=== PATIENT | male | born 1965 | race Two or more races ===

== ENCOUNTER 2020-07-21 01:23 | Inpatient (IN) | payer MEDICAID ==
[~2020-07-21] VITALS: Ht 167.6 cm; Wt 78.0 kg
[2020-07-21] VITALS (7 sets, daily range): BP systolic 121–133; BP diastolic 72–86
--- NOTE | 2020-07-21 01:38 | Emergency Room Report ---
History of Present Illness General Chief Complaint: Dyspnea/Respdistress Source: Patient, EMS Present Illness HPI This is a 54-year-old male with a history of diabetes. He presents with chief plaint of rest or distress. Symptoms been ongoing for a week. He has cough. Nonproductive nature. Also with slight nausea and vomiting. No diarrhea. Also has fever. Symptoms worsen with inspiration and exertion. He called 911. Per EMS, room air oxygenation was 89%. They placed him on nonrebreather and brought him here. Allergies: Coded Allergies: No Known Allergies (Unverified , 07/21/20) COVID-19 Screening Contact w/high risk pt: No Experienced COVID-19 symptoms?: Yes COVID-19 Testing performed STRIP ROLLER: No Patient History Past Medical History: see triage record, old chart reviewed, DM Past Surgical History: none Pertinent Family History: none Social History: Denies: smoking Immunizations: other Reviewed Nursing Documentation: PMH: Agreed; PSxH: Agreed Nursing Documentation-PMH Hx Diabetes: Yes Review of Systems Constitutional: Reports: chills, fever, weakness Eye: Denies: eye pain, blurred vision ENT: Denies: ear pain, nose congestion, throat swelling Respiratory: Reports: cough, shortness of breath Cardiovascular: Denies: chest pain, palpitations Gastrointestinal: Reports: nausea, vomiting; Denies: abdominal pain, diarrhea Musculoskeletal: Denies: back pain, joint pain Skin: Denies: rash Neurological: Denies: headache, numbness Endocrine: Denies: increased thirst, increased urine Hematologic/Lymphatic: Denies: easy bruising All Other Systems: negative except mentioned in HPI Physical Exam Vital Signs Date Time Temp Pulse Resp B/P (MAP) Pulse Ox O2 Delivery O2 Flow Rate FiO2 07/21/20 01:15 99.0 98 26 157/98 (117) 98 Room Air Vitals with high blood pressure. Oxygenation is 98% on nonrebreather. Sp02 EP Interpretation: reviewed, abnormal General Appearance: well appearing, alert, mild distress Head: normocephalic, atraumatic Eyes: bilateral eye PERRL, bilateral eye EOMI ENT: hearing grossly normal, normal pharynx Neck: full range of motion, supple, no meningismus Respiratory: chest non-tender, lungs clear, normal breath sounds Cardiovascular #1: regular rate, rhythm, no murmur Gastrointestinal: normal bowel sounds, non tender, no mass, no organomegaly, no bruit, non-distended Musculoskeletal: back normal, normal range of motion, gait/station normal Psychiatric: mood/affect normal Procedures Critical Care Time Critical Care Time Critical care is mandated in this patient who presented with acute respiratory failure with hypoxia secondary to Covid pneumonia. Patient require my urgent intervention to attenuate the risks of respiratory collapse which may lead to cardiovascular collapse and . Critical care time is 35 minutes excluding any reportable procedure. Critical care time included evaluation, multiple reevaluation, looking at old charts, interpreting laboratory and diagnostic data, discussing case with patient and family and consultants, and charting. Medical Decision Making Diagnostic Impression: Primary Impression: Pneumonia due to COVID-19 virus Additional Impressions: Acute respiratory failure with hypoxia Hyperglycemia due to type 2 diabetes mellitus ER Course Patient presents with respiratory distress secondary to Covid pneumonia. He was hypoxic on room air. On 4 L he is 95 to 97%. He is feeling better after oxygen and breathing treatment. Antibiotics given here. Steroid given here. Will admit for further work-up and monitoring. I contacted Dr. Miller for admission. EKG Diagnostic Results Troponin ordered: Yes Rate: normal Rhythm: NSR ST Segments: no acute changes Rhythm Strip Diag. Results EP Interpretation: yes Rate: 96 Rhythm: NSR, no PVC's, no ectopy Chest X-Ray Diagnostic Results Chest X-Ray Diagnostic Results : Chest X-Ray Ordered: Yes # of Views/Limited/Complete: 1 View Indication: Shortness of Breath EP Interpretation: Yes Interpretation: no effusion, no pneumothorax, other - Bilateral patchy airspace opacities Impression: Other - b/l infiltrates Electronically Signed by: Grant Hackett MD Last Vital Signs Date Time Temp Pulse Resp B/P (MAP) Pulse Ox O2 Delivery O2 Flow Rate FiO2 07/21/20 01:15 99.0 98 26 157/98 (117) 98 Room Air Status: improved Disposition: ADMITTED INPATIENT Condition: Serious Referrals: NOT CHOSEN ZORAIDA/,REFERRING (PCP) Grant Hackett MD Jul 21, 2020 01:38
--- NOTE | 2020-07-21 01:40 | NUR ---
ED Nurse Note: Pt came in by ambulance RA 94 from home becuase of sob x 2 days. pt stated; he been coughing and it was hard for him to breath. He was on 15L non-rebreather mask satting 100%. we put him on 4L NC and he is satting 96-97%. pt is A&Ox4, verbal and awake. Monitor on, pt is tecypenic 33. pt is on hospital gown.
[2020-07-21] MEDS ORDERED: Azithromycin 500 MG in NS 275 ML IVPB ONE (01:45)
[2020-07-21] MEDS ORDERED: Enoxaparin 100mg Inj SUBQ ONE (01:45)
[2020-07-21] MEDS ORDERED: cefTRIAXone 1 GM in NS 55 ML IV ONE (01:45)
[2020-07-21] MEDS ORDERED: dexAMETHasone 10mg/ml Inj IV ONE (01:45)
[2020-07-21 01:48] LABS: APPEARANCE,URINE CLEAR; BILIRUBIN, URINE NEGATIVE (NEGATIVE); COLOR,URINE PALE YELLOW; GLUCOSE, URINE (UA) 4+ (NEGATIVE); KETONES,URINE 3+ (NEGATIVE); LEUKOCYTE ESTERASE ,URINE NEGATIVE (NEGATIVE); NITRITE,URINE NEGATIVE (NEGATIVE); PH,URINE 6 (4.5-8.0); PROTEIN,URINE 4+ (NEGATIVE); UROBILINOGEN,URINE NORMAL MG/DL (0.0-1.0)
[2020-07-21 01:49] LABS: HEMATOCRIT 43.4 % (42.0-52.0); MEAN CORPUSCULAR VOLUME 83 FL (80-99); PLATELET COUNT 177 K/UL (150-450); RED BLOOD COUNT 5.25 M/UL (4.70-6.10); RED CELL DISTRIBUTION WIDTH 13.1 % (11.6-14.8); WHITE BLOOD COUNT 5.9 K/UL (4.8-10.8)
[2020-07-21] MEDS ORDERED: Azithromycin 500mg Inj ONE (01:49)
--- NOTE | 2020-07-21 01:55 | NUR ---
ED Nurse Note: Iv intiated; blood,urine , and covid 19 swab sent to the lab.
[2020-07-21 02:03] LABS: ANION GAP 10 mmol/L (5-15); BLOOD UREA NITROGEN 12 mg/dL (7-18); CALCIUM 8.2 MG/DL (8.5-10.1); CARBON DIOXIDE 27 MMOL/L (21-32); CHLORIDE 95 MMOL/L (98-107); POTASSIUM 4.3 MMOL/L (3.5-5.1); SODIUM 132 MMOL/L (136-145)
--- NOTE | 2020-07-21 02:08 | Diagnostic Imaging Report ---
EXAM: XR Chest, 1 View CLINICAL HISTORY: SOB TECHNIQUE: Frontal view of the chest. COMPARISON: No relevant prior studies available. FINDINGS: Lungs: Patchy airspace opacities throughout both lungs concerning for an infectious process. Pleural space: Unremarkable. Heart: Unremarkable. Mediastinum: Unremarkable. Bones/joints: Unremarkable. IMPRESSION: Patchy airspace opacities throughout both lungs concerning for an infectious process.
[2020-07-21] MEDS ORDERED: Albuterol ud Inhalation HHN ONE (02:15)
[2020-07-21] MEDS ORDERED: Insulin Human Regular 100units/ml 3ml IV ONE (02:15)
--- NOTE | 2020-07-21 02:30 | NUR ---
ED Nurse Note: pt is stable and sleeping. His o2 is 97% with 4L nc.
[2020-07-21 02:32] LABS: ALANINE AMINOTRANSFERASE 25 U/L (12-78); ALBUMIN 2.8 G/DL (3.4-5.0); ALBUMIN/GLOBULIN RATIO 0.5 (1.0-2.7); ALKALINE PHOSPHATASE 103 U/L (46-116); ASPARTATE AMINO TRANSFERASE 32 U/L (15-37); BILIRUBIN,TOTAL 0.4 MG/DL (0.2-1.0); CKMB < 0.5 NG/ML (0.0-3.6); CREATINE KINASE 347 U/L (26-308); FERRITIN 556 NG/ML (8-388); LACTATE DEHYDROGENASE 400 U/L (81-234)
--- NOTE | 2020-07-21 04:30 | NUR ---
TRANSFER TO FLOOR: Patient transferred to [facility] as ordered, per stephan. Report given to CHARMAINE Braga. ALl belonging sent with pt. RN took the pt to the floor in stable condition.
--- NOTE | 2020-07-21 04:40 | NUR ---
NURSE NOTES: Dr. Miller was called for admission order as indicated and a voice mail was left on his phone. Will continue to monitor
--- NOTE | 2020-07-21 06:19 | NUR ---
NURSE NOTES: The patient was received from [facility]. The patient is alert and oriented x4, he is on oxygen @ 2 liters NC welll tolerated. The patient is able to turn and re-position himself and has a steady gait. On skin assessment, the skin is warm and soft with capillary refill < 3 secs. He has a Left fore arm 18g that is patent and asymptomatic. He was noted coughing most of the time. The bed in low level and call light within easy reach.
--- NOTE | 2020-07-21 06:50 | NUR ---
NURSE NOTES: received admission orders from Dr. Miller. All orders executed as indicated
--- NOTE | 2020-07-21 07:20 | NUR ---
NURSE HAND-OFF: Important Events on Shift:Alert and stable Patient Status: Diet: Pending Orders: Pending Results/Labs: Pending MD notification: Latest Vital Signs: Temperature 98.0 , Pulse 89 , B/P 125 /69 , Respiratory Rate 22 , O2 SAT 98 , Nasal Cannula, O2 Flow Rate 2.0 . Vital Sign Comment: Latest Van Fall Score: 35 Fall Risk: Medium Risk Safety Measures: Call light Within Reach, Bed Alarm Zone 1, Side Rails Side Rails x1, Bed position Low and Locked. Fall Precautions: Yellow Socks Yellow Gown Door Sign Report given to .
--- NOTE | 2020-07-21 07:43 | NUR ---
NURSE NOTES: Received report from CHARMAINE Braga. Patient observed to be awake, alert, and oriented. Seen lying in bed with Hob elevated, currently on 4L NC, no s/sx of SOB/Distress, no c/o any pain or discomfort. Patient on contact and droplet iso for COVID (+). Patient with IV site lovated on LFA 18 asymptomatic, inplace and intact. Bed placed on lowest and locked, call light placed within reach and will continue to monitor for any changes in patients condition.
--- NOTE | 2020-07-21 09:58 | NUR ---
CASE MANAGEMENT:REVIEW BIBA FROM HOME CC; SOB SI: COVID PNA 99.5 98 26 157/98 100% ON 15L NRB GLUCOSE+384 IS: IV AZITHROMYCIN IV DECADRON 1L NS BOLUS IV ROCEPHIN LOVENOX SQ BLOOD CX : TO MED/SURG 4 DCP: FROM HOME
[2020-07-21] MEDS ORDERED: NovoLOG Insulin Flexpen SUBQ SCH (11:30)
--- NOTE | 2020-07-21 13:37 | NUR ---
NURSE NOTES: Received orders from Dr. Shoemaker for patient in regards to hyperglycemic episode. Orders repeated back, confirmed and carried out. Patient in stable condition.
--- NOTE | 2020-07-21 16:30 | NUR ---
NURSE NOTES: Notified Dr. Shoemaker of retained high blood sugar, given new order. Will continue to monitor patient's blood sugar level. Patient currently asymptomatic.
[2020-07-21] MEDS: NovoLOG Insulin Flexpen SUBQ SCH ×3 (16:58→21:48)
[2020-07-21] MEDS ORDERED: Levemir Flexpen SUBQ SCH (17:00)
--- NOTE | 2020-07-21 18:45 | NUR ---
NURSE NOTES: Patient's family brought over clothing, checked patient's binder no belongings sheet was found. Went over all patient's belongings, patient has 1052.00 in castillo in wallet, offered to place money in safe patient stated he is more comfortable if it is with him. Respected patient's wishes, patient signed belongings form.
--- NOTE | 2020-07-21 18:49 | NUR ---
NURSE NOTES: Rechecked patient's blood sugar lvl currently at 478 and is trending down. Patient asymptomatic, and will continue to monitor for any changes in condition.
[2020-07-21] MEDS: guaiFENesin w/Codeine 5ml Liq ud ORAL PRN (19:24)
--- NOTE | 2020-07-21 19:25 | NUR ---
NURSE HAND-OFF: Important Events on Shift:hyperglycemia,covid monitoringh Patient Status: bs trending down Diet: reg Pending Orders: n/a Pending Results/Labs:n/a Pending MD notification:n/a Latest Vital Signs: Temperature 98.2 , Pulse 72 , B/P 133 /82 , Respiratory Rate 20 , O2 SAT 95 , Nasal Cannula, O2 Flow Rate 4.0 . Vital Sign Comment: stable Latest Van Fall Score: 35 Fall Risk: Medium Risk Safety Measures: Call light Within Reach, Bed Alarm Zone 1, Side Rails Side Rails x2, Bed position Low and Locked. Fall Precautions: Yellow Socks Yellow Gown Door Sign Report given to CHARMAINE Braga.
--- NOTE | 2020-07-21 19:27 | NUR ---
NURSE NOTES: The patient is alert and oriented x4 and is on continuos oxygen via NC @ 4 liters well tolerated. He is able to ambulate to the bath room with a steady gait. Patient was noted with coughing episodes and was given his PRN cough syrup as indicated. Patient has a LFA 18g that is patent and asymptomatic. The bed in low level, call light within easy reach. Will continue to monitor as indicated
[2020-07-21] MEDS: Levemir Flexpen SUBQ SCH (21:46)
--- NOTE | 2020-07-21 23:00 | History and Physical Report ---
DATE OF ADMISSION: 07/21/2020 HISTORY OF PRESENT ILLNESS: The patient is admitted for COVID-positive pneumonia. The patient came in with history of diabetes with a chief complaint of shortness of breath. The patient also has some cough for about a couple of days, nonproductive. Denied vomiting. Denied diarrhea. Denies abdominal pain or shortness of breath. The patient is also a diabetic and is admitted for COVID-positive pneumonia and hypoxia initially as well as elevated sugar. PAST MEDICAL HISTORY: NIDDM and GERD. PAST SURGICAL HISTORY: None. ALLERGIES: No known allergies. MEDICATIONS: He does not know the medications that he takes. FAMILY HISTORY: Noncontributory. REVIEW OF SYSTEMS: HEENT: Denies headache. RESPIRATORY: Reports shortness of breath and cough. CARDIOVASCULAR: Denies chest pain, orthopnea. GASTROINTESTINAL: Denies nausea, vomiting, or diarrhea. EXTREMITIES: Denies pain. CENTRAL NERVOUS SYSTEM: Denies change in speech pattern. PHYSICAL EXAMINATION: VITAL SIGNS: Temperature is 98, pulse is 89, blood pressure 124/69. HEENT: PERRLA. NECK: Supple. No lymphadenopathy. CHEST: Clear to auscultation CARDIOVASCULAR: Regular rate and rhythm. No murmurs or extra sounds. GASTROINTESTINAL: Soft, nontender, nondistended. No organomegaly. EXTREMITIES: No edema. Moves all four extremities. Reflexes on both sides. LABORATORY DATA: WBC of 5.9, hemoglobin 16, platelets 177. Sodium 133, potassium 4.3, BUN of 12, creatinine of 1. Chest x-ray showed bilateral infiltrates. Glucose was 384. ASSESSMENT AND PLAN: COVID-positive pneumonia, hypoxia, elevated sugar, hyperglycemia. I have consulted Dr. Pradeep Monique, Dr. Christian Caraballo, and Dr. Sandor Briceño to help with the management of the hypoxia, pneumonia, COVID-positive pneumonia as well as for elevated sugar. Antibiotics per Dr. Christian Caraballo. Milagro Miller M.D. DR: FRANCISCO J JOB#: [id number] CC:
[2020-07-22] VITALS: BP 128/70
[2020-07-22 04:00] VITALS: BP 138/73
[2020-07-22 05:58] LABS: ANION GAP 9 mmol/L (5-15); BLOOD UREA NITROGEN 14 mg/dL (7-18); CALCIUM 8.4 MG/DL (8.5-10.1); CARBON DIOXIDE 26 MMOL/L (21-32); CHLORIDE 100 MMOL/L (98-107); CREATININE 0.8 MG/DL (0.55-1.30); POTASSIUM 3.9 MMOL/L (3.5-5.1); SODIUM 135 MMOL/L (136-145)
[2020-07-22] MEDS: NovoLOG Insulin Flexpen SUBQ SCH ×7 (06:32→20:21)
--- NOTE | 2020-07-22 07:10 | NUR ---
NURSE HAND-OFF: Important Events on Shift:coughing episodes, continous oxygen @ 2 liters NC Patient Status: Diet: Pending Orders: Pending Results/Labs: Pending MD notification: Latest Vital Signs: Temperature 97.9 , Pulse 71 , B/P 138 /73 , Respiratory Rate 20 , O2 SAT 92 , Nasal Cannula, O2 Flow Rate 4.0 . Vital Sign Comment: Latest Van Fall Score: 35 Fall Risk: Medium Risk Safety Measures: Call light Within Reach, Bed Alarm Zone 1, Side Rails Side Rails x2, Bed position Low and Locked. Fall Precautions: Yellow Socks Yellow Gown Door Sign Report given to .
--- NOTE | 2020-07-22 07:15 | NUR ---
NURSE NOTES: Received report from CHARMAINE Braga. Patient seen lying in bed, awake,alert and oriented x4. Currently on droplet and contact isolation for (+) COVID. Patient on 4L NC no s/sx of SOB/Distress, no c/o any pain or discomfort. IV site located on LFA 18 asymptomatic, inplace and intact. Bed placed on lowest and locked,call light placed within reach and will continue to monitor for any changes in patient's condition.
[2020-07-22 08:00] VITALS: BP 136/72
[2020-07-22] MEDS: Enoxaparin 40mg Inj SUBQ SCH (08:13)
[2020-07-22] MEDS: Levemir Flexpen SUBQ SCH ×2 (08:16→20:20)
--- NOTE | 2020-07-22 09:10 | NUR ---
NURSE NOTES: Patient reported feeling SOB, 02 at 90-91% on 5LNC notified Dr. Monique and received orders to place venturi mask on 50%. Notified RT and will continue to monitor for any changes in patients condition.
[2020-07-22 12:00] VITALS: BP 145/79
[2020-07-22] MEDS: guaiFENesin w/Codeine 5ml Liq ud ORAL PRN (12:57)
--- NOTE | 2020-07-22 13:42 | NUR ---
CASE MANAGEMENT:REVIEW 07/22/20 SI: COVID PNA 97.9 71 21 145/79 98% ON VENTURI MASK GLUCOSE+195 IS: IV DECADRON Q24 LOVENOX SQ QD LEVEMIR SQ Q12 SS INSULIN AC+HS : MED/SURG STATUS 4 [facility]
[2020-07-22] MEDS: LORazepam 1mg tab ORAL PRN (14:47)
[2020-07-22 16:00] VITALS: BP 133/76
--- NOTE | 2020-07-22 16:59 | Pulmonology Progress Note ---
Subjective Interval Events: None new Constitutional: Reports: no symptoms HEENT: Repors: no symptoms Respiratory: Reports: no symptoms Cardiovascular: Reports: no symptoms Gastrointestinal/Abdominal: Reports: no symptoms Allergies: Coded Allergies: No Known Allergies (Unverified , 07/21/20) Objective Last 24 Hour Vital Signs Date Time Temp Pulse Resp B/P (MAP) Pulse Ox O2 Delivery O2 Flow Rate FiO2 07/22/20 16:00 97.9 79 20 133/76 (95) 99 07/22/20 15:17 78 20 138/80 98 07/22/20 14:47 71 21 145/79 98 07/22/20 12:00 97.9 71 21 145/79 (101) 98 07/22/20 09:00 Venturi Mask 07/22/20 08:00 97.9 78 19 136/72 (93) 93 07/22/20 04:00 97.9 71 20 138/73 (94) 92 07/22/20 00:00 98.0 74 18 128/70 (89) 94 07/21/20 21:00 Nasal Cannula 4.0 07/21/20 20:00 98.4 74 18 126/74 (91) 97 Intake and Output 07/21/20 07/22/20 19:00 07:00 Intake Total 1000 ml 1200 ml Balance 1000 ml 1200 ml Intake Oral 1000 ml 1200 ml # Voids 4 4 # Bowel Movements 1 General Appearance: no acute distress HEENT: normocephalic Respiratory: chest wall non-tender Cardiovascular: normal peripheral pulses Abdomen: normal bowel sounds Microbiology Date/Time Source Procedure Growth Status 07/21/20 01:20 Nasopharynx SARS-CoV-2 RdRp Gene Assay - Final Complete Laboratory Tests 07/22/20 04:00: Sodium Level 135L, Potassium Level 3.9, Chloride Level 100, Carbon Dioxide Level 26, Anion Gap 9, Blood Urea Nitrogen 14, Creatinine 0.8, Estimat Glomerular Filtration Rate > 60, Glucose Level 195#H, Hemoglobin A1c 10.2H, Calcium Level 8 .4L 07/22/20 07:36: POC Whole Blood Glucose 155H 07/22/20 08:11: POC Whole Blood Glucose [Pending] 07/22/20 09:37: POC Whole Blood Glucose 215H 07/22/20 11:09: POC Whole Blood Glucose 197H 07/22/20 16:20: POC Whole Blood Glucose 200H Current Medications Medications (Trade) Dose Ordered Sig/Dalia Route PRN Reason Start Time Stop Time Status Last Admin Dose Admin Acetaminophen (Tylenol) 500 mg Q6H PRN ORAL Mild Pain (Pain Scale 1-3) 07/21/20 08:15 08/20/20 08:14 Dexamethasone Sodium Phosphate (Decadron 4mg/ml vial) 6 mg DAILY IVP 07/22/20 09:00 07/30/20 12:00 07/22/20 08:12 Dextrose (Dextrose 50%) 25 ml Q30M PRN IV Hypoglycemia 07/21/20 13:30 10/19/20 13:29 Dextrose (Dextrose 50%) 50 ml Q30M PRN IV Hypoglycemia 07/21/20 13:30 10/19/20 13:29 Enoxaparin Sodium (Lovenox) 40 mg DAILY SUBQ 07/22/20 09:00 10/20/20 08:59 07/22/20 08:13 Insulin Aspart (NovoLOG) BEFORE MEALS AND HS SUBQ 07/21/20 16:30 10/19/20 16:29 07/22/20 12:25 Insulin Aspart (NovoLOG) 10 units TIWM SUBQ 07/21/20 17:00 10/19/20 16:59 07/22/20 12:24 Insulin Detemir (Levemir) 20 units EVERY 12 HOURS SUBQ 07/21/20 21:00 10/19/20 20:59 07/22/20 08:16 Lorazepam (Ativan) 1 mg Q6H PRN ORAL For Anxiety 07/22/20 14:30 07/29/20 14:29 07/22/20 14:47 Mirtazapine (Remeron) 15 mg BEDTIME ORAL 07/22/20 21:00 10/20/20 20:59 Assessment/Plan Assessment/Plan ASSESSMENT COVID-19pneumonia, hypoxia, DM PLAN Steroids/Decadron Remdesiver defer to ID Lovenox Oxygen therapy Pradeep Monique MD Jul 22, 2020 16:59
--- NOTE | 2020-07-22 19:04 | CDS Physician Query ---
Clarification is required for compliance, coding accuracy, and to reflect severity of illness for this patient Dear Dr. Milagro Miller M.D. Date: 07/22/2020 CDIS Name: Dav Alvarado 54 YOM admitted for COVID-positive pneumonia. The patient came in with history of diabetes with a chief complaint of shortness of breath. [ H&P Milagro iMller M.D. 07/21/20] ASSESSMENT AND PLAN: COVID-positive pneumonia, hypoxia, elevated sugar,hyperglycemia. LABORATORY DATA: WBC of 5.9, hemoglobin 16, platelets 177. Sodium 133, potassium 4.3, BUN of 12, creatinine of 1.2 , Glucose was 384. Albumin 2.8, Calcium 8.2 BMI 27.8 Please select the most appropriate option: [] Protein/Calorie Malnutrition [] Mild [] Moderate [] Severe [] Hypoalbuminemia [] Cachexia [] Underweight [] Intestinal malabsorption [] Other [] Unable to determine [] Not Applicable Present on Admission: [] Yes [] No [] Clinically Undetermined Physician signature Date Please also document in your Progress Notes and/or Discharge Summary and indicate if the condition was present on admission. MTDD
--- NOTE | 2020-07-22 19:15 | NUR ---
NURSE HAND-OFF: Important Events on Shift:LOW 02, ANXIETY, COVID MONITORING Patient Status: Stable Diet: ccho Pending Orders: n.a Pending Results/Labs:n.a Pending MD notification:n.a Latest Vital Signs: Temperature 97.9 , Pulse 79 , B/P 133 /76 , Respiratory Rate 20 , O2 SAT 99 , Venturi Mask, O2 Flow Rate 4.0 . Vital Sign Comment: stable Latest Van Fall Score: 35 Fall Risk: Medium Risk Safety Measures: Call light Within Reach, Bed Alarm Zone 1, Side Rails Side Rails x2, Bed position Low and Locked. Fall Precautions: Yellow Socks Yellow Gown Door Sign Report given to CHARMAINE Ng.
--- NOTE | 2020-07-22 19:15 | CDS Physician Query ---
Clarification is required for compliance, coding accuracy, and to reflect severity of illness for this patient. Dear Dr. Milagro Miller M.D. Date: 07/22/2020 CDIS Name: Dav Alvarado 54 YOM admitted for COVID-positive pneumonia. The patient came in with history of diabetes with a chief complaint of shortness of breath. [ H&P Milagro Miller M.D. 07/21/20] ASSESSMENT AND PLAN: COVID-positive pneumonia, hypoxia, elevated sugar,hyperglycemia. LABORATORY DATA: WBC of 5.9, hemoglobin 16, platelets 177. Sodium 133, Chloride 95 potassium 4.3, BUN of 12, creatinine of 1.2 , Glucose was 384. Calcium 8.2 Lab Value/Radiographic finding of: [ ] Hyponatremia [ ] Hypochloremia [ ] Hypocalcemia [ ] Findings are not significant [ ] Other: Present on Admission: [] Yes [] No [] Clinically Undetermined Physician signature Date Please also document in your Progress Notes and/or Discharge Summary and indicate if the condition was present on admission. MTDD
--- NOTE | 2020-07-22 19:50 | NUR ---
NURSE NOTES: Patient in bed, awake, ANOx4. COVID + isolation in progress. Venturi mask on - O2 sat 96%. IV intact and patent. Bed locked and in lowest position. Call light in reach. Will continue plan of care.
[2020-07-22 20:00] VITALS: BP 150/74
--- NOTE | 2020-07-22 22:29 | General Progress Note ---
Subjective ROS Limited/Unobtainable: Yes Allergies: Coded Allergies: No Known Allergies (Unverified , 07/21/20) Objective Last 24 Hour Vital Signs Date Time Temp Pulse Resp B/P (MAP) Pulse Ox O2 Delivery O2 Flow Rate FiO2 07/22/20 20:21 Venturi Mask 07/22/20 20:00 97.7 71 21 150/74 (99) 96 07/22/20 16:00 97.9 79 20 133/76 (95) 99 07/22/20 15:17 78 20 138/80 98 07/22/20 14:47 71 21 145/79 98 07/22/20 12:00 97.9 71 21 145/79 (101) 98 07/22/20 09:00 Venturi Mask 07/22/20 08:00 97.9 78 19 136/72 (93) 93 07/22/20 04:00 97.9 71 20 138/73 (94) 92 07/22/20 00:00 98.0 74 18 128/70 (89) 94 Intake and Output 07/21/20 07/22/20 19:00 07:00 Intake Total 1000 ml 1200 ml Balance 1000 ml 1200 ml Intake Oral 1000 ml 1200 ml # Voids 4 4 # Bowel Movements 1 Laboratory Tests 07/22/20 04:00: Sodium Level 135L, Potassium Level 3.9, Chloride Level 100, Carbon Dioxide Level 26, Anion Gap 9, Blood Urea Nitrogen 14, Creatinine 0.8, Estimat Glomerular Filtration Rate > 60, Glucose Level 195#H, Hemoglobin A1c 10.2H, Calcium Level 8.4L 07/22/20 07:36: POC Whole Blood Glucose 155H 07/22/20 08:11: POC Whole Blood Glucose [Pending] 07/22/20 09:37: POC Whole Blood Glucose 215H 07/22/20 11:09: POC Whole Blood Glucose 197H 07/22/20 16:20: POC Whole Blood Glucose 200H 07/22/20 20:10: POC Whole Blood Glucose [Pending] Height (Feet): 5 Height (Inches): 6.00 Weight (Pounds): 172 Assessment/Plan Problem List: (1) Acute respiratory failure with hypoxia ICD Codes: J96.01 - Acute respiratory failure with hypoxia; J12.89 - Other viral pneumonia SNOMED: 73574392, 592844007 (2) Pneumonia due to COVID-19 virus ICD Codes: U07.1 - COVID-19; J12.89 - Other viral pneumonia SNOMED: 313875299652305667 (3) Hyperglycemia due to type 2 diabetes mellitus ICD Codes: E11.65 - Type 2 diabetes mellitus with hyperglycemia; J12.89 - Other viral pneumonia SNOMED: 962415769656829, [id number] Status: progressing Assessment/Plan: covid positive pna resp insuff on prn oxygen afebrile Milagro Miller MD Jul 22, 2020 22:29
[2020-07-23] VITALS: BP 145/71
[2020-07-23] MEDS: LORazepam 1mg tab ORAL PRN ×3 (00:52→20:55)
[2020-07-23 04:00] VITALS: BP 138/74
[2020-07-23] MEDS: Acetaminophen 500mg (ES) tab ORAL PRN (04:58)
[2020-07-23] MEDS: NovoLOG Insulin Flexpen SUBQ SCH ×8 (06:11→21:00)
--- NOTE | 2020-07-23 06:57 | General Progress Note ---
Subjective Allergies: Coded Allergies: No Known Allergies (Unverified , 07/21/20) All Systems: reviewed and negative except above Subjective events noted interval notes reviewed glucose values improved Item Value Date Time Bedside Blood Glucose 135 mg/dl H 07/23/20 0613 Bedside Blood Glucose 117 mg/dl 07/22/202020 Bedside Blood Glucose 200 mg/dl H 07/22/20 1723 Bedside Blood Glucose 197 mg/dl H 07/22/20 1225 Bedside Blood Glucose 162 mg/dl H 07/22/20 0816 Bedside Blood Glucose 222 mg/dl H 07/22/20 0635 Objective Last 24 Hour Vital Signs Date Time Temp Pulse Resp B/P (MAP) Pulse Ox O2 Delivery O2 Flow Rate FiO2 07/23/20 04:00 99.3 89 21 138/74 (95) 93 07/23/20 01:22 75 20 144/69 96 07/23/20 00:52 80 25 143/72 94 07/23/20 00:00 97.8 73 21 145/71 (95) 96 07/22/20 20:21 Venturi Mask 07/22/20 20:00 97.7 71 21 150/74 (99) 96 07/22/20 16:00 97.9 79 20 133/76 (95) 99 07/22/20 15:17 78 20 138/80 98 07/22/20 14:47 71 21 145/79 98 07/22/20 12:00 97.9 71 21 145/79 (101) 98 07/22/20 09:00 Venturi Mask 07/22/20 08:00 97.9 78 19 136/72 (93) 93 Intake and Output 07/22/20 07/23/20 19:00 07:00 Intake Total 1200 ml 600 ml Balance 1200 ml 600 ml Intake Oral 1200 ml 600 ml # Voids 4 3 Laboratory Tests 07/22/20 07:36: POC Whole Blood Glucose 155H 07/22/20 08:11: POC Whole Blood Glucose [Pending] 07/22/20 09:37: POC Whole Blood Glucose 215H 07/22/20 11:09: POC Whole Blood Glucose 197H 07/22/20 16:20: POC Whole Blood Glucose 200H 07/22/20 20:10: POC Whole Blood Glucose [Pending] 07/23/20 06:09: POC Whole Blood Glucose [Pending] Height (Feet): 5 Height (Inches): 6.00 Weight (Pounds): 172 Objective Current Medications Medications (Trade) Dose Ordered Sig/Dalia Route PRN Reason Start Time Stop Time Status Last Admin Dose Admin Acetaminophen (Tylenol) 500 mg Q6H PRN ORAL Mild Pain (Pain Scale 1-3) 07/21/20 08:15 08/20/20 08:14 07/23/20 04:58 Ascorbic Acid (Vitamin C) 500 mg TWICE A DAY ORAL 07/23/20 09:00 08/22/20 08:59 Dexamethasone Sodium Phosphate (Decadron 4mg/ml vial) 6 mg DAILY IVP 07/22/20 09:00 07/30/20 12:00 07/22/20 08:12 Dextrose (Dextrose 50%) 25 ml Q30M PRN IV Hypoglycemia 07/21/20 13:30 10/19/20 13:29 Dextrose (Dextrose 50%) 50 ml Q30M PRN IV Hypoglycemia 07/21/20 13:30 10/19/20 13:29 Enoxaparin Sodium (Lovenox) 40 mg DAILY SUBQ 07/22/20 09:00 10/20/20 08:59 07/22/20 08:13 Insulin Aspart (NovoLOG) BEFORE MEALS AND HS SUBQ 07/21/20 16:30 10/19/20 16:29 07/22/20 17:23 Insulin Aspart (NovoLOG) 10 units TIWM SUBQ 07/21/20 17:00 10/19/20 16:59 07/22/20 17:22 Insulin Detemir (Levemir) 20 units EVERY 12 HOURS SUBQ 07/21/20 21:00 10/19/20 20:59 07/22/20 08:16 Lorazepam (Ativan) 1 mg Q6H PRN ORAL For Anxiety 07/22/20 14:30 07/29/20 14:29 07/23/20 00:52 Mirtazapine (Remeron) 15 mg BEDTIME ORAL 07/22/20 21:00 10/20/20 20:59 07/22/20 20:18 Assessment/Plan Problem List: (1) Pneumonia due to COVID-19 virus ICD Codes: U07.1 - COVID-19; J12.89 - Other viral pneumonia SNOMED: 110697406335584175 (2) Hyperglycemia due to type 2 diabetes mellitus ICD Codes: E11.65 - Type 2 diabetes mellitus with hyperglycemia; J12.89 - Other viral pneumonia SNOMED: 768084583862611, 84152621 (3) Acute respiratory failure with hypoxia ICD Codes: J96.01 - Acute respiratory failure with hypoxia; J12.89 - Other viral pneumonia SNOMED: 71515996, 967830731 Status: progressing Assessment/Plan: reduce Levemir to 8 units bid reduce Novolog to 6 units ac tid + sliding scale hypoglycemia protocol in order Sandor Briceño MD Jul 23, 2020 06:57
--- NOTE | 2020-07-23 07:36 | NUR ---
NURSE NOTES: Patient awake, on Venturi mask 12 Liters; no sing of shortness of breath; no sing of chest pain; side rails up x2, breaks engaged, bed at lowest position; call light within reach; will keep monitoring.
--- NOTE | 2020-07-23 07:55 | NUR ---
HAND-OFF: Report given to CHARMAINE Solorzano.
[2020-07-23 08:00] VITALS: BP 133/77
[2020-07-23] MEDS: Ascorbic Acid 500mg tab ORAL SCH ×2 (08:40→18:46)
[2020-07-23] MEDS: Enoxaparin 40mg Inj SUBQ SCH (08:42)
[2020-07-23] MEDS: Levemir Flexpen SUBQ SCH ×2 (08:43→21:00)
--- NOTE | 2020-07-23 09:03 | Consultation ---
DATE OF CONSULTATION: 07/21/2020 PULMONARY CONSULTATION CONSULTING PHYSICIAN: Pradeep Monique M.D. REFERRING PHYSICIAN: Milagro Miller M.D. REASON FOR CONSULT: Pneumonia. HISTORY OF PRESENT ILLNESS: This is a 54-year-old male with diabetes. He came to the hospital with shortness of breath. This has been going on for about a week. He was found to be markedly hypoxemic. He was placed on non-rebreather and brought to the hospital. The patient was evaluated and found to have COVID-19 positivity by rapid gene assay. He also underwent imaging studies, which showed that he had patchy bilateral airspace densities concerning for pneumonia. The patient at this time is noted to be on a nasal cannula 4 liters with sats 94%. Previously, he was on a non-rebreather mask. PAST MEDICAL HISTORY: Notable for diabetes mellitus. No other history known. ALLERGIES: None reported. PREVIOUS SURGERIES: Not known. REVIEW OF SYSTEMS: Denies any headaches, hematemesis, melena, hematochezia, or weight loss. PHYSICAL EXAMINATION: GENERAL: Reveals a 51-year-old male. VITAL SIGNS: Blood pressure 130/80, heart rate 74, respirations 20, O2 saturation 97% on 4 liters of oxygen. HEENT: Unremarkable. LUNGS: Decreased breath sounds bilaterally. HEART: Normal heart sounds. ABDOMEN: Soft. EXTREMITIES: There is no edema. DIAGNOSTIC AND LABORATORY DATA: Lab testing is unremarkable with a sodium 134, glucose 284, ferritin 556, LDH 400. CK 347. CRP 26. Coags show D-dimer of 0.5. IMPRESSION: 1. COVID pneumonia. 2. Elevated inflammatory markers. 3. Diabetes mellitus. DISCUSSION: Admit to the hospital. The patient received Decadron and Lovenox in the emergency room. I will continue both. Defer the use of remdesivir to ID specialist. We will follow carefully litigation specialist's note. I note he has been started on Levemir and insulin sliding scale as well as fluids to continue. Pradeep Monique M.D. DR: KAROLINE/ JOB#: [id number] CC:
--- NOTE | 2020-07-23 09:03 | Consultation ---
DATE OF CONSULTATION: 07/22/2020 ENDOCRINOLOGY CONSULTATION CONSULTING PHYSICIAN: Patrice Shoemaker MD REFERRING PHYSICIAN: Milagro Miller MD REASON FOR CONSULTATION: I was asked to see this 54-year-old male by Dr. Milagro Miller in Endocrinology consultation for evaluation and management of type 2 diabetes mellitus out of control. The patient is under the care of Dr. Milagro Miller. with a glucose of 493. Denies . FAMILY HISTORY: Unremarkable. PERSONAL HISTORY: Unremarkable. REVIEW OF SYSTEMS: Unremarkable. PHYSICAL EXAMINATION: GENERAL: The patient is in no acute distress. VITAL SIGNS: Blood pressure 126/74, pulse 75, respiratory rate 18, temperature 98.2. HEAD AND NECK: Unremarkable. No jugular venous distention. LUNGS: Clear. HEART: . ABDOMEN: Bowel sounds present. EXTREMITIES: No edema. NEUROLOGIC: Cranial nerves II through XII are grossly intact with toes downgoing to plantar stimulation. LABORATORY DATA: Glucose 493. . ASSESSMENT: 1. Diabetes mellitus type 2. 2. COVID pneumonia. 3. . PLAN: Levemir 20 units q.12 hours. . Novolog 10 units t.i.d. . Patrice Shoemaker M.D. DR: LIONEL JOB#: [id number] CC:
--- NOTE | 2020-07-23 09:18 | Pulmonology Progress Note ---
Subjective ROS Limited/Unobtainable: Yes Interval Events: None new Constitutional: Reports: no symptoms HEENT: Repors: no symptoms Respiratory: Reports: shortness of breath Cardiovascular: Reports: no symptoms; Denies: chest pain, palpitations Gastrointestinal/Abdominal: Reports: no symptoms Neurologic: Reports: other - anxiety Allergies: Coded Allergies: No Known Allergies (Unverified , 07/21/20) All Systems: reviewed and negative except above Objective Last 24 Hour Vital Signs Date Time Temp Pulse Resp B/P (MAP) Pulse Ox O2 Delivery O2 Flow Rate FiO2 07/23/20 08:41 96 21 133/77 90 07/23/20 08:00 99.3 96 22 133/77 (95) 92 07/23/20 04:00 99.3 89 21 138/74 (95) 93 07/23/20 01:22 75 20 144/69 96 07/23/20 00:52 80 25 143/72 94 07/23/20 00:00 97.8 73 21 145/71 (95) 96 07/22/20 20:21 Venturi Mask 07/22/20 20:00 97.7 71 21 150/74 (99) 96 07/22/20 16:00 97.9 79 20 133/76 (95) 99 07/22/20 15:17 78 20 138/80 98 07/22/20 14:47 71 21 145/79 98 07/22/20 12:00 97.9 71 21 145/79 (101) 98 Intake and Output 07/22/20 07/23/20 19:02 07:02 Intake Total 1200 ml 600 ml Balance 1200 ml 600 ml Intake Oral 1200 ml 600 ml # Voids 4 3 Objective 07/23/2020 currently saturating well on 12 L oxygen via Venturi mask General Appearance: no acute distress HEENT: normocephalic Respiratory: chest wall non-tender, crackles/rales Cardiovascular: normal peripheral pulses, normal rate Abdomen: normal bowel sounds Extremities: no cyanosis, no clubbing Microbiology Date/Time Source Procedure Growth Status 07/21/20 01:30 Blood Blood Culture - Preliminary NO GROWTH AFTER 48 HOURS Resulted 07/21/20 01:20 Nasopharynx SARS-CoV-2 RdRp Gene Assay - Final Complete 07/21/20 01:20 Blood Blood Culture - Preliminary NO GROWTH AFTER 48 HOURS Resulted Laboratory Tests 07/22/20 09:37: POC Whole Blood Glucose 215H 07/22/20 11:09: POC Whole Blood Glucose 197H 07/22/20 16:20: POC Whole Blood Glucose 200H 07/22/20 20:10: POC Whole Blood Glucose [Pending] 07/23/20 06:09: POC Whole Blood Glucose [Pending] Current Medications Medications (Trade) Dose Ordered Sig/Dalia Route PRN Reason Start Time Stop Time Status Last Admin Dose Admin Acetaminophen (Tylenol) 500 mg Q6H PRN ORAL Mild Pain (Pain Scale 1-3) 07/21/20 08:15 08/20/20 08:14 07/23/20 04:58 Ascorbic Acid (Vitamin C) 500 mg TWICE A DAY ORAL 07/23/20 09:00 08/22/20 08:59 07/23/20 08:40 Dexamethasone Sodium Phosphate (Decadron 4mg/ml vial) 6 mg DAILY IVP 07/22/20 09:00 07/30/20 12:00 07/23/20 08:40 Dextrose (Dextrose 50%) 25 ml Q30M PRN IV Hypoglycemia 07/21/20 13:30 10/19/20 13:29 Dextrose (Dextrose 50%) 50 ml Q30M PRN IV Hypoglycemia 07/21/20 13:30 10/19/20 13:29 Enoxaparin Sodium (Lovenox) 40 mg DAILY SUBQ 07/22/20 09:00 10/20/20 08:59 07/23/20 08:42 Insulin Aspart (NovoLOG) BEFORE MEALS AND HS SUBQ 07/21/20 16:30 10/19/20 16:29 07/22/20 17:23 Insulin Aspart (NovoLOG) 6 units TIWM SUBQ 07/23/20 07:00 10/19/20 16:59 Insulin Detemir (Levemir) 8 units EVERY 12 HOURS SUBQ 07/23/20 09:00 10/19/20 20:59 07/23/20 08:43 Lorazepam (Ativan) 1 mg Q6H PRN ORAL For Anxiety 07/22/20 14:30 07/29/20 14:29 07/23/20 08:41 Mirtazapine (Remeron) 15 mg BEDTIME ORAL 07/22/20 21:00 10/20/20 20:59 07/22/20 20:18 Assessment/Plan Assessment/Plan 1. COVID-19 pneumonia. -On Decadron -Now also on remdesivir -Currently saturating well on 12 L oxygen via Venturi mask 2. Elevated inflammatory markers. 3. Diabetes mellitus. -On glucose lowering agents 4. DVT prophylaxis - On Lovenox We will follow carefully The care of this patient was discussed with my supervising physician Time spent for this encounter was approximately 31 minutes The patient was seen and examined at bedside and all new and available data was reviewed in the patients chart. I agree with the above findings, impression, and plan. (Patient was seen earlier today. Signature timestamp does not reflect patient encounter time) Zhao Umana MD Jul 23, 2020 09:21 Pradeep Monique MD Jul 23, 2020 17:09
[2020-07-23 12:00] VITALS: BP 138/78
[2020-07-23] MEDS ORDERED: Loading Dose:Remdesivir 200mg/NS 210ml IV SCH ×2 (16:00)
[2020-07-23 16:09] VITALS: BP 138/84
--- NOTE | 2020-07-23 16:38 | NUR ---
CASE MANAGEMENT:REVIEW SI;COVID PNA 99.3 25 22 138/84 85% VENTURI MASK IS;REMDESIVIR IV ONCE DECADRON IV LOVENOX SQ VIT C PO BID INSULIN NOVOLOG SQ MED SURG STATUS DCP;FROM HOME
--- NOTE | 2020-07-23 18:25 | NUR ---
NURSE NOTES: Report received from CHARMAINE daniel. Patient was brought in a hospital bed, was infusing fluids through patients IV that was patent and intact. Patients belongings were verified. The patient is in stable condition, bed placed in lowest position, locked, side rails x3 and call light within reach.
--- NOTE | 2020-07-23 18:30 | NUR ---
NURSE NOTES: Patient transferred to [facility] 206-2; report given to CHARMAINE Claudio; patient's belongings crossed matched and signed; also patient's money counted and all belongings signed by transferring and receiving nurses; patient on venturi mask 12 Liters; patient stable upon transfer;
--- NOTE | 2020-07-23 18:45 | Consultation ---
DATE OF CONSULTATION: 07/23/2020 INFECTIOUS DISEASE CONSULTATION CONSULTING PHYSICIAN: Christian Caraballo MD PRIMARY ATTENDING: Milagro Miller MD REASON FOR CONSULTATION: COVID-19 disease, hypoxemia. HISTORY OF PRESENT ILLNESS: This is a 54-year-old male admitted on 07/21/2020 from home complaining of shortness of breath and dry cough for couple of days. He was hypoxemic at the time of admission. COVID-19 test was positive. Had hyperglycemia. PAST MEDICAL HISTORY: Diabetes mellitus type 2. ALLERGIES: No known drug allergies. MEDICATIONS: Getting Levemir insulin, vitamin C, insulin aspart, Remeron, lorazepam, dexamethasone, Lovenox, insulin. SOCIAL HISTORY: . REVIEW OF SYSTEMS: Has shortness of breath and dry cough, but no fever. PHYSICAL EXAMINATION: VITAL SIGNS: Temperature 99.3, pulse 96, blood pressure 133/77. GENERAL APPEARANCE: Seems to have normal weight. HEAD AND NECK: [place] conjunctivae. HEART: Normal rate. LUNGS: Getting oxygen by Venturi mask, clear. ABDOMEN: Soft and nontender. EXTREMITIES: No edema. NEUROLOGIC: Awake, alert, slightly drowsy. LABORATORY AND DIAGNOSTIC DATA: WBC 5.9, hemoglobin 16, hematocrit 43.4, platelets 177. Sodium 132, potassium 4.3, chloride 99, bicarb 27, BUN 12, creatinine 1, glucose 384. LDH is elevated 400. UA was negative. Blood culture so far negative. COVID test is positive. Chest x-ray showed patchy airspace opacities in both lungs, concerning for infectious process. IMPRESSION: COVID-19 disease seems to be severe. Patient is hyperglycemic. Has diabetes mellitus with hyperglycemia. He is hypoxemic. Has lymphocytopenia. RECOMMENDATION: Continue dexamethasone. We will start on remdesivir. We will follow up the clinical course. At the end of my exam, I thank Dr. Miller, for involving me in the care of this patient. Christian Caraballo M.D. DR: Raul JOB#: [id number] CC: FILIPPO
--- NOTE | 2020-07-23 19:39 | NUR ---
NURSE HAND-OFF REPORT: Important Events on Shift:[Transferred to [facility] at 1810, On Venturi Mask and remdesevir] Patient Status: [AAOx4, full code] Diet: [CCHO] Pending Orders: [N/A] Pending Results/Labs:[N/A] Pending MD notification:[N/A] Latest Vital Signs: Temperature 98.2 , Pulse 113 , B/P 138 /84 , Respiratory Rate 18 , O2 SAT 85 , Venturi Mask, O2 Flow Rate 4.0 . Vital Sign Comment: [] EKG Rhythm: Sinus Rhythm Rhythm change?: MD Notified?: - MD Response: Latest Van Fall Score: 35 Fall Risk: Medium Risk Safety Measures: Call light Within Reach, Bed Alarm Zone 1, Side Rails Side Rails x2, Bed position Low and Locked. Fall Precautions: Yellow Socks Yellow Gown Door Sign Report given to [CHARMAINE SINGLETON].
--- NOTE | 2020-07-23 19:48 | NUR ---
NURSE NOTES: The patient is alert and stable and does not seem to be in any active distress at this time. Some level of anxiety and anxiousness was noted but a calm environment was provided as indicated. The patient is on a venturi mask @ 12 liters 50% well tolerated.IV line on the left wrist 24g.The bed is low and locked, call light within easy reach. will continue to monitor as indicated.
--- NOTE | 2020-07-23 19:52 | Psychiatric Progress Note ---
Psychiatry Progress Note Psychiatry Progress Note Medications Current Medications Medications (Trade) Dose Ordered Sig/Dalia Route PRN Reason Start Time Stop Time Status Last Admin Dose Admin Acetaminophen (Tylenol) 500 mg Q6H PRN ORAL Mild Pain (Pain Scale 1-3) 07/21/20 08:15 08/20/20 08:14 07/23/20 04:58 Ascorbic Acid (Vitamin C) 500 mg TWICE A DAY ORAL 07/23/20 09:00 08/22/20 08:59 07/23/20 18:46 Dexamethasone Sodium Phosphate (Decadron 4mg/ml vial) 6 mg DAILY IVP 07/22/20 09:00 07/30/20 12:00 07/23/20 08:40 Dextrose (Dextrose 50%) 25 ml Q30M PRN IV Hypoglycemia 07/21/20 13:30 10/19/20 13:29 Dextrose (Dextrose 50%) 50 ml Q30M PRN IV Hypoglycemia 07/21/20 13:30 10/19/20 13:29 Enoxaparin Sodium (Lovenox) 40 mg DAILY SUBQ 07/22/20 09:00 10/20/20 08:59 07/23/20 08:42 Insulin Aspart (NovoLOG) BEFORE MEALS AND HS SUBQ 07/21/20 16:30 10/19/20 16:29 07/23/20 16:19 Insulin Aspart (NovoLOG) 6 units TIWM SUBQ 07/23/20 07:00 10/19/20 16:59 07/23/20 16:20 Insulin Detemir (Levemir) 8 units EVERY 12 HOURS SUBQ 07/23/20 09:00 10/19/20 20:59 07/23/20 08:43 Lorazepam (Ativan) 1 mg Q6H PRN ORAL For Anxiety 07/22/20 14:30 07/29/20 14:29 07/23/20 08:41 Mirtazapine (Remeron) 15 mg BEDTIME ORAL 07/22/20 21:00 10/20/20 20:59 07/22/20 20:18 Remdesivir 100 mg/ Sodium Chloride 250 ml @ 250 mls/hr Q24H IV 07/24/20 16:00 07/27/20 16:59 Neurological/Psychiatric: Reports: anxiety, depressed, emotional problems Allergies: Coded Allergies: No Known Allergies (Unverified , 07/21/20) Objective Data Height (Feet): 5 Height (Inches): 6.00 Weight (Pounds): 172 General Appearance: alert, confused, agitated Additional Comments: alert, disoriented to self, place, situation. Mood is anxious. Affect is blunted, congruent with mood. Thought process is concrete. Thought content, no suicidal or homicidal ideation. Cognition is intact. Insight and judgment fair. Assessment/Plan Status: progressing Assessment/Plan: ASSESSMENT: [place] I Anxiety disorder. [place] II Deferred. [place] III As above. [place] IV Low. [place] V 20 PLAN: 1. We will continue current medication. 2. Provide the patient with reality orientation and supportive therapy. Ron Bridges MD Jul 23, 2020 19:52
[2020-07-23 20:00] VITALS: BP 132/76
--- NOTE | 2020-07-23 20:54 | General Progress Note ---
Subjective ROS Limited/Unobtainable: Yes Allergies: Coded Allergies: No Known Allergies (Unverified , 07/21/20) Objective Last 24 Hour Vital Signs Date Time Temp Pulse Resp B/P (MAP) Pulse Ox O2 Delivery O2 Flow Rate FiO2 07/23/20 16:09 98.2 113 18 138/84 (102) 85 07/23/20 12:00 98.4 99 22 138/78 (98) 92 07/23/20 09:11 96 21 133/77 90 07/23/20 09:00 Venturi Mask 07/23/20 08:41 96 21 133/77 90 07/23/20 08:00 99.3 96 22 133/77 (95) 92 07/23/20 04:00 99.3 89 21 138/74 (95) 93 07/23/20 01:22 75 20 144/69 96 07/23/20 00:52 80 25 143/72 94 07/23/20 00:00 97.8 73 21 145/71 (95) 96 Intake and Output 07/22/20 07/23/20 19:00 07:00 Intake Total 1200 ml 600 ml Balance 1200 ml 600 ml Intake Oral 1200 ml 600 ml # Voids 4 3 Laboratory Tests 07/23/20 06:09: POC Whole Blood Glucose [Pending] 07/23/20 16:02: Arterial Blood pH 7.477H, Arterial Blood Partial Pressure CO2 34.6L, Arterial Blood Partial Pressure O2 52.6L, Arterial Blood HCO3 25.0, Arterial Blood Oxygen Saturation 88.6*L, Arterial Blood Base Excess 2.0, [place] Test Positive Height (Feet): 5 Height (Inches): 6.00 Weight (Pounds): 172 Assessment/Plan Problem List: (1) Acute respiratory failure with hypoxia ICD Codes: J96.01 - Acute respiratory failure with hypoxia; J12.89 - Other viral pneumonia SNOMED: 68886075, 095530071 (2) Pneumonia due to COVID-19 virus ICD Codes: U07.1 - COVID-19; J. - Other viral pneumonia SNOMED: 820945948502107003 (3) Hyperglycemia due to type 2 diabetes mellitus ICD Codes: E11.65 - Type 2 diabetes mellitus with hyperglycemia; J. - Other viral pneumonia SNOMED: 413910071253730, 76288208 Status: progressing Assessment/Plan: covid positive pna tahcycardia niddm transfer to tele deterioating Milagro Miller MD Jul 23, 2020 20:54
--- NOTE | 2020-07-23 22:00 | NUR ---
The patient has anxiety and agitations and was restless. Ativan PRN was given as indicated.
[2020-07-24] VITALS: BP 129/80
--- NOTE | 2020-07-24 02:15 | Consultation ---
DATE OF CONSULTATION: 07/24/2020 CONSULTING PHYSICIAN: Ron Bridges MD HISTORY OF PRESENT ILLNESS: This is a 54-year-old female with a history of diabetes mellitus and history of noncompliance who is admitted to the hospital due to COVID-19. The patient is presenting with anxiety, depressed mood, insomnia, answers the questions appropriately, has anxiety and depressed mood. PAST PSYCHIATRY HISTORY: Anxiety disorder, depression. PAST MEDICAL HISTORY: Diabetes mellitus. ALLERGIES: No known drug allergies. SUBSTANCE ABUSE HISTORY: No known history of illicit drug use or alcohol. MENTAL STATUS EXAMINATION: The patient is alert, oriented times self, place, situation. Mood is anxious. Affect is blunted, congruent with mood. Thought process is concrete. Thought content, no suicidal or homicidal ideation. Cognition is intact. Insight and judgment fair. ASSESSMENT: [place] I Anxiety disorder. [place] II Deferred. [place] III As above. [place] IV Low. [place] V 20 PLAN: 1. We will continue current medication. 2. Provide the patient with reality orientation and supportive therapy. Ron Bridges M.D. DR: CAMILLA JOB#: [id number] CC:
[2020-07-24 04:00] VITALS: BP 132/74
[2020-07-24] MEDS: LORazepam 1mg tab ORAL PRN ×2 (04:18→11:23)
--- NOTE | 2020-07-24 04:50 | NUR ---
NURSE NOTES: The patient repeatedly removes his buzzle buffer that he want to go home. Will continue to monitor
--- NOTE | 2020-07-24 05:03 | NUR ---
NURSE NOTES: The patient has severe anxiety and agitations. He wanted to leave the facility and go home, tried to escape twice and was caught in [place]. He was hyperventilating with some episodes of SOB noted. A calm environment was provided, security was called and the patient was wheeled back to his room. A voice message was left to DR. Dexter as indicated to initiate a soft wrist restraint. The patient was sixto on a Venturi mask @ 12 liters with 55% well tolerated.
[2020-07-24] MEDS: NovoLOG Insulin Flexpen SUBQ SCH ×7 (06:30→21:00)
--- NOTE | 2020-07-24 06:44 | General Progress Note ---
Subjective ROS Limited/Unobtainable: Yes Allergies: Coded Allergies: No Known Allergies (Unverified , 07/21/20) Subjective events noted interval notes reviewed glucose values on higher side Item Value Date Time Bedside Blood Glucose 225 mg/dl H 07/23/20 2100 Bedside Blood Glucose 259 mg/dl H 07/23/20 1630 Bedside Blood Glucose 290 mg/dl H 07/23/20 1152 Bedside Blood Glucose 135 mg/dl H 07/23/20 0843 Bedside Blood Glucose 135 mg/dl H 07/23/20 0613 Objective Last 24 Hour Vital Signs Date Time Temp Pulse Resp B/P (MAP) Pulse Ox O2 Delivery O2 Flow Rate FiO2 07/24/20 04:40 124 07/24/20 00:00 111 07/24/20 00:00 97.6 111 20 129/80 (96) 92 07/23/20 21:00 Venturi Mask 07/23/20 20:00 106 07/23/20 16:09 98.2 113 18 138/84 (102) 85 07/23/20 12:00 98.4 99 22 138/78 (98) 92 07/23/20 09:11 96 21 133/77 90 07/23/20 09:00 Venturi Mask 07/23/20 08:41 96 21 133/77 90 07/23/20 08:00 99.3 96 22 133/77 (95) 92 Intake and Output 07/23/20 07/24/20 19:00 07:00 Intake Total 150 ml Balance 150 ml Intake Oral 150 ml # Voids 1 Laboratory Tests 07/23/20 16:02: Arterial Blood pH 7.477H, Arterial Blood Partial Pressure CO2 34.6L, Arterial Blood Partial Pressure O2 52.6L, Arterial Blood HCO3 25.0, Arterial Blood Oxygen Saturation 88.6*L, Arterial Blood Base Excess 2.0, Francisco Test Positive 07/24/20 04:16: POC Whole Blood Glucose 235H Height (Feet): 5 Height (Inches): 6.00 Weight (Pounds): 172 Objective Current Medications Medications (Trade) Dose Ordered Sig/Dalia Route PRN Reason Start Time Stop Time Status Last Admin Dose Admin Acetaminophen (Tylenol) 500 mg Q6H PRN ORAL Mild Pain (Pain Scale 1-3) 07/21/20 08:15 08/20/20 08:14 07/23/20 04:58 Ascorbic Acid (Vitamin C) 500 mg TWICE A DAY ORAL 07/23/20 09:00 08/22/20 08:59 07/23/20 18:46 Dexamethasone Sodium Phosphate (Decadron 4mg/ml vial) 6 mg DAILY IVP 07/22/20 09:00 07/30/20 12:00 07/23/20 08:40 Dextrose (Dextrose 50%) 25 ml Q30M PRN IV Hypoglycemia 07/21/20 13:30 10/19/20 13:29 Dextrose (Dextrose 50%) 50 ml Q30M PRN IV Hypoglycemia 07/21/20 13:30 10/19/20 13:29 Enoxaparin Sodium (Lovenox) 40 mg DAILY SUBQ 07/22/20 09:00 10/20/20 08:59 07/23/20 08:42 Insulin Aspart (NovoLOG) BEFORE MEALS AND HS SUBQ 07/21/20 16:30 10/19/20 16:29 07/23/20 16:19 Insulin Aspart (NovoLOG) 6 units TIWM SUBQ 07/23/20 07:00 10/19/20 16:59 07/23/20 16:20 Insulin Detemir (Levemir) 8 units EVERY 12 HOURS SUBQ 07/23/20 09:00 10/19/20 20:59 07/23/20 21:00 Lorazepam (Ativan) 1 mg Q6H PRN ORAL For Anxiety 07/22/20 14:30 07/29/20 14:29 07/24/20 04:18 Mirtazapine (Remeron) 15 mg BEDTIME ORAL 07/22/20 21:00 10/20/20 20:59 07/23/20 20:55 Remdesivir 100 mg/ Sodium Chloride 250 ml @ 250 mls/hr Q24H IV 07/24/20 16:00 07/27/20 16:59 Assessment/Plan Problem List: (1) Pneumonia due to COVID-19 virus ICD Codes: U07.1 - COVID-19; J12.89 - Other viral pneumonia SNOMED: 980369657111893483 (2) Hyperglycemia due to type 2 diabetes mellitus ICD Codes: E11.65 - Type 2 diabetes mellitus with hyperglycemia; J12.89 - Other viral pneumonia SNOMED: 189601639999891, 87711117 (3) Acute respiratory failure with hypoxia ICD Codes: J96.01 - Acute respiratory failure with hypoxia; J12.89 - Other viral pneumonia SNOMED: 77532690, [id number] Status: progressing Assessment/Plan: continue Levemir 8 units bid increase Novolog to 8 units ac tid + sliding scale hypoglycemia protocol in order Sandor Briceño MD Jul 24, 2020 06:44
--- NOTE | 2020-07-24 07:10 | NUR ---
NURSE HAND-OFF REPORT: Important Events on Shift:Anxiety, and agitations , sinus tachy, on a venturi mask12 liter @ 50@ Fio2 Patient Status: Diet: Pending Orders: Pending Results/Labs: Pending MD notification: Latest Vital Signs: Temperature 98.6 , Pulse 124 , B/P 132 /74 , Respiratory Rate 19 , O2 SAT 94 , Venturi Mask, O2 Flow Rate 4.0 . Vital Sign Comment: EKG Rhythm: Sinus Tachycardia Rhythm change?: N MD Notified?: - MD Response: Latest Van Fall Score: 35 Fall Risk: Medium Risk Safety Measures: Call light Within Reach, Bed Alarm Zone 1, Side Rails Side Rails x2, Bed position Low and Locked. Fall Precautions: Yellow Socks Yellow Gown Door Sign Report given to .
[2020-07-24 07:11] LABS: HEMATOCRIT 44.5 % (42.0-52.0); HEMOGLOBIN 16.1 G/DL (14.2-18.0); MEAN CORPUSCULAR VOLUME 83 FL (80-99); PLATELET COUNT 233 K/UL (150-450); RED BLOOD COUNT 5.36 M/UL (4.70-6.10); RED CELL DISTRIBUTION WIDTH 13.4 % (11.6-14.8); WHITE BLOOD COUNT 18.6 K/UL (4.8-10.8)
--- NOTE | 2020-07-24 07:45 | NUR ---
NURSE NOTES: Received report from Omi/RN. Patient is alert and oriented X 1-2, Restless, trying to leave the room. Per night nurse report, patient left the room and went to different floor. On venturi mask at this time, Patient noted tachypneic >30, A calm environment was provided. IV on right hand patent and intact. Bed in low position and locked, call light within easy reach. Encouraged to use call light when needed. Will continue plan of care.
[2020-07-24 08:00] VITALS: BP 127/83
[2020-07-24 08:33] LABS: ALANINE AMINOTRANSFERASE 27 U/L (12-78); ALBUMIN 2.1 G/DL (3.4-5.0); ALBUMIN/GLOBULIN RATIO 0.4 (1.0-2.7); ALKALINE PHOSPHATASE 106 U/L (46-116); ANION GAP 7 mmol/L (5-15); ASPARTATE AMINO TRANSFERASE 34 U/L (15-37); BILIRUBIN,DIRECT 0.1 MG/DL (0.0-0.3); BILIRUBIN,TOTAL 0.7 MG/DL (0.2-1.0); BLOOD UREA NITROGEN 15 mg/dL (7-18); CARBON DIOXIDE 30 MMOL/L (21-32); CHLORIDE 96 MMOL/L (98-107); POTASSIUM 3.7 MMOL/L (3.5-5.1); SODIUM 133 MMOL/L (136-145)
[2020-07-24 08:36] LABS: ALANINE AMINOTRANSFERASE 28 U/L (12-78); ALBUMIN 2.2 G/DL (3.4-5.0); ALKALINE PHOSPHATASE 102 U/L (46-116); ASPARTATE AMINO TRANSFERASE 34 U/L (15-37); BILIRUBIN,DIRECT 0.1 MG/DL (0.0-0.3); BILIRUBIN,TOTAL 0.7 MG/DL (0.2-1.0)
--- NOTE | 2020-07-24 09:15 | NUR ---
NURSE NOTES: Patient got out of his room and went to SDU, brought by SDU nurses. Contacted MD for restraint order.
--- NOTE | 2020-07-24 09:30 | NUR ---
NURSE NOTES: Received order from Dr. Bridges for bilateral wrist restraint order. Order carried out.
[2020-07-24] MEDS: Ascorbic Acid 500mg tab ORAL SCH ×2 (10:00→18:05)
[2020-07-24] MEDS: Levemir Flexpen SUBQ SCH ×2 (10:00→21:00)
[2020-07-24] MEDS: Enoxaparin 40mg Inj SUBQ SCH (10:00)
--- NOTE | 2020-07-24 10:09 | Infectious Diseases Prog Note ---
Assessment/Plan Assessment/Plan IMPRESSION: COVID-19 disease seems to be severe. Diabetes mellitus with hyperglycemia. Hypoxemic. Lymphocytopenia. Sinus tachycardia RECOMMENDATION: Continue dexamethasone & remdesivir f/u CXR Subjective ROS Limited/Unobtainable: Yes Constitutional: Denies: fever Respiratory: Reports: other - hiccups Allergies: Coded Allergies: No Known Allergies (Unverified , 07/21/20) Objective Last 24 Hour Vital Signs Date Time Temp Pulse Resp B/P (MAP) Pulse Ox O2 Delivery O2 Flow Rate FiO2 07/24/20 08:00 97.8 137 25 127/83 (98) 91 07/24/20 04:40 124 07/24/20 04:00 98.6 116 19 132/74 (93) 94 07/24/20 00:00 111 07/24/20 00:00 97.6 111 20 129/80 (96) 92 07/23/20 21:00 Venturi Mask 07/23/20 20:00 106 07/23/20 16:09 98.2 113 18 138/84 (102) 85 07/23/20 12:00 98.4 99 22 138/78 (98) 92 Height (Feet): 5 Height (Inches): 6.00 Weight (Pounds): 172 HEENT: mucous membranes moist, other Respiratory/Chest: other - oxygen by mask Cardiovascular: tachycardia Abdomen: soft, non tender Extremities: no edema Neurologic/Psychiatric: other - sleeping Laboratory Tests Test 07/23/20 16:02 07/24/20 04:16 07/24/20 06:00 Arterial Blood pH 7.477 (7.350-7.450) Arterial Blood Partial Pressure CO2 34.6 mmHg (35.0-45.0) L Arterial Blood Partial Pressure O2 52.6 mmHg (75.0-100.0) L Arterial Blood HCO3 25.0 mmol/L (22.0-26.0) Arterial Blood Oxygen Saturation 88.6 % (95-100) *L Arterial Blood Base Excess 2.0 (-2-2) Francisco Test Positive POC Whole Blood Glucose 235 MG/DL (74-106) H White Blood Count 18.6 K/UL (4.8-10.8) H Red Blood Count 5.36 M/UL (4.70-6.10) Hemoglobin 16.1 G/DL (14.2-18.0) Hematocrit 44.5 % (42.0-52.0) Mean Corpuscular Volume 83 FL (80-99) Mean Corpuscular Hemoglobin 30.0 PG (27.0-31.0) Mean Corpuscular Hemoglobin Concent 36.2 G/DL (32.0-36.0) H Red Cell Distribution Width 13.4 % (11.6-14.8) Platelet Count 233 K/UL (150-450) Mean Platelet Volume 6.0 FL (6.5-10.1) L Neutrophils (%) (Auto) % (45.0-75.0) Lymphocytes (%) (Auto) % (20.0-45.0) Monocytes (%) (Auto) % (1.0-10.0) Eosinophils (%) (Auto) % (0.0-3.0) Basophils (%) (Auto) % (0.0-2.0) Differential Total Cells Counted 100 Neutrophils % (Manual) 89 % (45-75) H Lymphocytes % (Manual) 7 % (20-45) L Monocytes % (Manual) 4 % (1-10) Eosinophils % (Manual) 0 % (0-3) Basophils % (Manual) 0 % (0-2) Band Neutrophils 0 % (0-8) Platelet Estimate Adequate Platelet Morphology Normal Red Blood Cell Morphology Normal Sodium Level 133 MMOL/L (136-145) L Potassium Level 3.7 MMOL/L (3.5-5.1) Chloride Level 96 MMOL/L (98-107) L Carbon Dioxide Level 30 MMOL/L (21-32) Anion Gap 7 mmol/L (5-15) Blood Urea Nitrogen 15 mg/dL (7-18) Creatinine 1.0 MG/DL (0.55-1.30) Estimat Glomerular Filtration Rate > 60 mL/min (>60) Glucose Level 197 MG/DL (74-106) H Calcium Level 8.0 MG/DL (8.5-10.1) L Total Bilirubin 0.7 MG/DL (0.2-1.0) Direct Bilirubin 0.1 MG/DL (0.0-0.3) Aspartate Amino Transf (AST/SGOT) 34 U/L (15-37) Alanine Aminotransferase (ALT/SGPT) 28 U/L (12-78) Alkaline Phosphatase 102 U/L (46-116) Total Protein 7.1 G/DL (6.4-8.2) Albumin 2.2 G/DL (3.4-5.0) L Globulin 5.0 g/dL Albumin/Globulin Ratio 0.4 (1.0-2.7) L Current Medications Medications (Trade) Dose Ordered Sig/Dalia Route PRN Reason Start Time Stop Time Status Last Admin Dose Admin Acetaminophen (Tylenol) 500 mg Q6H PRN ORAL Mild Pain (Pain Scale 1-3) 07/21/20 08:15 08/20/20 08:14 07/23/20 04:58 Ascorbic Acid (Vitamin C) 500 mg TWICE A DAY ORAL 07/23/20 09:00 08/22/20 08:59 07/24/20 10:00 Dexamethasone Sodium Phosphate (Decadron 4mg/ml vial) 6 mg DAILY IVP 07/22/20 09:00 07/30/20 12:00 07/24/20 10:00 Dextrose (Dextrose 50%) 25 ml Q30M PRN IV Hypoglycemia 07/21/20 13:30 10/19/20 13:29 Dextrose (Dextrose 50%) 50 ml Q30M PRN IV Hypoglycemia 07/21/20 13:30 10/19/20 13:29 Enoxaparin Sodium (Lovenox) 40 mg DAILY SUBQ 07/22/20 09:00 10/20/20 08:59 07/24/20 10:00 Insulin Aspart (NovoLOG) BEFORE MEALS AND HS SUBQ 07/21/20 16:30 10/19/20 16:29 07/23/20 16:19 Insulin Aspart (NovoLOG) 8 units TIWM SUBQ 07/24/20 07:00 10/19/20 16:59 07/24/20 07:07 Insulin Detemir (Levemir) 8 units EVERY 12 HOURS SUBQ 07/23/20 09:00 10/19/20 20:59 07/23/20 21:00 Lorazepam (Ativan) 1 mg Q6H PRN ORAL For Anxiety 07/22/20 14:30 07/29/20 14:29 07/24/20 04:18 Mirtazapine (Remeron) 15 mg BEDTIME ORAL 07/22/20 21:00 3/13/21 20:59 07/23/20 20:55 Remdesivir 100 mg/ Sodium Chloride 250 ml @ 250 mls/hr Q24H IV 07/24/20 16:00 07/27/20 16:59 Christian Caraballo MD Jul 24, 2020 10:09
--- NOTE | 2020-07-24 11:33 | Pulmonology Progress Note ---
Subjective ROS Limited/Unobtainable: Yes Interval Events: confused and noncompliant per RN Constitutional: Denies: fever HEENT: Repors: no symptoms Respiratory: Reports: shortness of breath Cardiovascular: Reports: no symptoms; Denies: chest pain, palpitations Gastrointestinal/Abdominal: Reports: no symptoms Neurologic: Reports: other - anxiety Allergies: Coded Allergies: No Known Allergies (Unverified , 07/21/20) All Systems: reviewed and negative except above Objective Last 24 Hour Vital Signs Date Time Temp Pulse Resp B/P (MAP) Pulse Ox O2 Delivery O2 Flow Rate FiO2 07/24/20 08:00 97.8 137 25 127/83 (98) 91 07/24/20 04:40 124 07/24/20 04:00 98.6 116 19 132/74 (93) 94 07/24/20 00:00 111 07/24/20 00:00 97.6 111 20 129/80 (96) 92 07/23/20 21:00 Venturi Mask 07/23/20 20:00 106 07/23/20 16:09 98.2 113 18 138/84 (102) 85 07/23/20 12:00 98.4 99 22 138/78 (98) 92 Intake and Output 07/23/20 07/24/20 19:00 07:00 Intake Total 150 ml Balance 150 ml Intake Oral 150 ml # Voids 1 Objective 07/24/2020 confused and non compliant with oxygen per RN; on Venturi mask 07/23/2020 currently saturating well on 12 L oxygen via Venturi mask General Appearance: no acute distress HEENT: normocephalic Respiratory: chest wall non-tender, crackles/rales Cardiovascular: normal peripheral pulses, normal rate Abdomen: normal bowel sounds Extremities: no cyanosis, no clubbing Laboratory Tests 07/23/20 16:02: Arterial Blood pH 7.477H, Arterial Blood Partial Pressure CO2 34.6L, Arterial Blood Partial Pressure O2 52.6L, Arterial Blood HCO3 25.0, Arterial Blood Oxygen Saturation 88.6*L, Arterial Blood Base Excess 2.0, Francisco Test Positive 07/24/20 04:16: POC Whole Blood Glucose 235H 07/24/20 06:00: White Blood Count 18.6H, Red Blood Count 5.36, Hemoglobin 16.1, Hematocrit 44.5, Mean Corpuscular Volume 83, Mean Corpuscular Hemoglobin 30.0, Mean Corpuscular Hemoglobin Concent 36.2H, Red Cell Distribution Width 13.4, Platelet Count 233, Mean Platelet Volume 6.0L, Neutrophils (%) (Auto) , Lymphocytes (%) (Auto) , Monocytes (%) (Auto) , Eosinophils (%) (Auto) , Basophils (%) (Auto) , Differential Total Cells Counted 100, Neutrophils % (Manual) 89H, Lymphocytes % (Manual) 7L, Monocytes % (Manual) 4, Eosinophils % (Manual) 0, Basophils % (Manual) 0, Band Neutrophils 0, Platelet Estimate Adequate, Platelet Morphology Normal, Red Blood Cell Morphology Normal, Sodium Level 133L, Potassium Level 3.7, Chloride Level 96L, Carbon Dioxide Level 30, Anion Gap 7, Blood Urea Nitrogen 15, Creatinine 1.0, Estimat Glomerular Filtration Rate > 60, Glucose Level 197H, Calcium Level 8.0L, Total Bilirubin 0.7, Direct Bilirubin 0.1, Aspartate Amino Transf (AST/SGOT) 34, Alanine Aminotransferase (ALT/SGPT) 28, Alkaline Phosphatase 102, Total Protein 7.1, Albumin 2.2L, Globulin 5.0, Albumin/Globulin Ratio 0.4L 07/24/20 10:10: POC Whole Blood Glucose [Pending] Current Medications Medications (Trade) Dose Ordered Sig/Dalia Route PRN Reason Start Time Stop Time Status Last Admin Dose Admin Acetaminophen (Tylenol) 500 mg Q6H PRN ORAL Mild Pain (Pain Scale 1-3) 07/21/20 08:15 08/20/20 08:14 07/23/20 04:58 Ascorbic Acid (Vitamin C) 500 mg TWICE A DAY ORAL 07/23/20 09:00 08/22/20 08:59 07/24/20 10:00 Dexamethasone Sodium Phosphate (Decadron 4mg/ml vial) 6 mg DAILY IVP 07/22/20 09:00 07/30/20 12:00 07/24/20 10:00 Dextrose (Dextrose 50%) 25 ml Q30M PRN IV Hypoglycemia 07/21/20 13:30 10/19/20 13:29 Dextrose (Dextrose 50%) 50 ml Q30M PRN IV Hypoglycemia 07/21/20 13:30 10/19/20 13:29 Enoxaparin Sodium (Lovenox) 40 mg DAILY SUBQ 07/22/20 09:00 10/20/20 08:59 07/24/20 10:00 Insulin Aspart (NovoLOG) BEFORE MEALS AND HS SUBQ 07/21/20 16:30 10/19/20 16:29 07/23/20 16:19 Insulin Aspart (NovoLOG) 8 units TIWM SUBQ 07/24/20 07:00 10/19/20 16:59 07/24/20 07:07 Insulin Detemir (Levemir) 8 units EVERY 12 HOURS SUBQ 07/23/20 09:00 10/19/20 20:59 07/24/20 10:00 Lorazepam (Ativan) 1 mg Q6H PRN ORAL For Anxiety 07/22/20 14:30 07/29/20 14:29 07/24/20 04:18 Mirtazapine (Remeron) 15 mg BEDTIME ORAL 07/22/20 21:00 10/20/20 20:59 07/23/20 20:55 Remdesivir 100 mg/ Sodium Chloride 250 ml @ 250 mls/hr Q24H IV 07/24/20 16:00 07/27/20 16:59 Assessment/Plan Assessment/Plan 1. COVID-19 pneumonia. - On Decadron - on remdesivir per ID specialist - Currently saturating well on 12 L oxygen via Venturi mask - currently anxious and confused- management per Dr. Bridges - CXR pending 2. Elevated inflammatory markers. 3. Diabetes mellitus. -On glucose lowering agents 4. DVT prophylaxis - On Lovenox We will follow carefully The care of this patient was discussed with my supervising physician Time spent for this encounter was approximately 31 minutesThe patient was seen and examined at bedside and all new and available data was reviewed in the patients chart. I agree with the above findings, impression, and plan. (Patient was seen earlier today. Signature timestamp does not reflect patient encounter time) Zhao Umana MD Jul 24, 2020 11:33 Pradeep Monique MD Jul 24, 2020 18:08
[2020-07-24 12:00] VITALS: BP 125/74
--- NOTE | 2020-07-24 12:01 | NUR ---
RESPIRATORY NOTE:pt was not tolerating Venti mask at 55%, pulse ox around 82%-83%, switched pt to NRB 100%, now pt pulse ox is 93%-94% and tolerating well
--- NOTE | 2020-07-24 12:56 | NUR ---
ISSUE CLERKRADIATION THERAPIST SI: RESPIRATORY FAILURE,LEUKOCYTOSIS T. 97.2 HR 134 RR 24 B/P 118/84 NRM FIO2 100% O2 SAT @ 93% WBC 18.6 IS: REDEMSIVIR IV DECADRON IV LOVENOX SUBC TELE STATUS
--- NOTE | 2020-07-24 15:14 | Diagnostic Imaging Report ---
Indication: Dyspnea Technique: One view of the chest Comparison: 07/21/2020 Findings: Bilateral infiltrates have worsened markedly, with with considerable confluent dense consolidation now present. The left hemidiaphragm is now obscured. Impression: Marked worsening of bilateral infiltrates, over 3 days
[2020-07-24 16:00] VITALS: BP 113/70
[2020-07-24] MEDS: Maintenance Dose:Remdesivir 100mg/NS 230ml x 4 Doses IV SCH ×2 (16:17)
--- NOTE | 2020-07-24 19:15 | NUR ---
NURSE HAND-OFF REPORT: Important Events on Shift: Patient is confused, Trying to leave the room, On bilateral soft wrist restraint Patient Status: Lethargic Diet: CCHO low Pending Orders: N/A Pending Results/Labs:N/A Pending MD notification:N/A Latest Vital Signs: Temperature 97.2 , Pulse 97 , B/P 113 /70 , Respiratory Rate 24 , O2 SAT 92 , Venturi Mask, O2 Flow Rate 15.0 . Vital Sign Comment: Stable EKG Rhythm: Sinus Rhythm Rhythm change?: N MD Notified?: - MD Response: Latest Van Fall Score: 35 Fall Risk: Medium Risk Safety Measures: Call light Within Reach, Bed Alarm Zone 1, Side Rails Side Rails x2, Bed position Low and Locked. Fall Precautions: Yellow Socks Yellow Gown Door Sign Report given to Jacquelyn/CHARMAINE.
[2020-07-24 20:00] VITALS: BP 109/71
--- NOTE | 2020-07-24 20:56 | General Progress Note ---
Subjective ROS Limited/Unobtainable: Yes Allergies: Coded Allergies: No Known Allergies (Unverified , 07/21/20) Objective Last 24 Hour Vital Signs Date Time Temp Pulse Resp B/P (MAP) Pulse Ox O2 Delivery O2 Flow Rate FiO2 07/24/20 16:00 97 07/24/20 16:00 97.2 106 24 113/70 (84) 92 07/24/20 12:00 128 07/24/20 12:00 98.1 121 26 125/74 (91) 97 07/24/20 11:54 93 Non-Rebreather 15.0 100 07/24/20 11:53 121 26 125/74 97 07/24/20 11:23 137 25 127/83 91 07/24/20 09:00 Venturi Mask 07/24/20 08:00 97.8 137 25 127/83 (98) 91 07/24/20 04:40 124 07/24/20 04:00 98.6 116 19 132/74 (93) 94 07/24/20 00:00 111 07/24/20 00:00 97.6 111 20 129/80 (96) 92 07/23/20 21:00 Venturi Mask Intake and Output 07/23/20 07/24/20 19:00 07:00 Intake Total 150 ml Balance 150 ml Intake Oral 150 ml # Voids 1 Laboratory Tests 07/24/20 04:16: POC Whole Blood Glucose 235H 07/24/20 06:00: White Blood Count 18.6H, Red Blood Count 5.36, Hemoglobin 16.1, Hematocrit 44.5, Mean Corpuscular Volume 83, Mean Corpuscular Hemoglobin 30.0, Mean Corpuscular Hemoglobin Concent 36.2H, Red Cell Distribution Width 13.4, Platelet Count 233, Mean Platelet Volume 6.0L, Neutrophils (%) (Auto) , Lymphocytes (%) (Auto) , Monocytes (%) (Auto) , Eosinophils (%) (Auto) , Basophils (%) (Auto) , Differential Total Cells Counted 100, Neutrophils % (Manual) 89H, Lymphocytes % (Manual) 7L, Monocytes % (Manual) 4, Eosinophils % (Manual) 0, Basophils % (Manual) 0, Band Neutrophils 0, Platelet Estimate Adequate, Platelet Morphology Normal, Red Blood Cell Morphology Normal, Sodium Level 133L, Potassium Level 3.7, Chloride Level 96L, Carbon Dioxide Level 30, Anion Gap 7, Blood Urea Nitrogen 15, Creatinine 1.0, Estimat Glomerular Filtration Rate > 60, Glucose Level 197H, Calcium Level 8.0L, Total Bilirubin 0.7, Direct Bilirubin 0.1, Aspartate Amino Transf (AST/SGOT) 34, Alanine Aminotransferase (ALT/SGPT) 28, Alkaline Phosphatase 102, Total Protein 7.1, Albumin 2.2L, Globulin 5.0, [place] min/Globulin Ratio 0.4L 07/24/20 10:10: POC Whole Blood Glucose [Pending] 07/24/20 11:26: POC Whole Blood Glucose [Pending] 07/24/20 17:09: POC Whole Blood Glucose [Pending] Height (Feet): 5 Height (Inches): 6.00 Weight (Pounds): 172 Assessment/Plan Problem List: (1) Acute respiratory failure with hypoxia ICD Codes: J96.01 - Acute respiratory failure with hypoxia; J12.89 - Other viral pneumonia SNOMED: 74549495, 241712992 (2) Pneumonia due to COVID-19 virus ICD Codes: U07.1 - COVID-19; J12.89 - Other viral pneumonia SNOMED: 557907684236201097 (3) Hyperglycemia due to type 2 diabetes mellitus ICD Codes: E11.65 - Type 2 diabetes mellitus with hyperglycemia; J12.89 - Other viral pneumonia SNOMED: 392963078140931, 57449103 Status: progressing Assessment/Plan: covid positive pna tahcycardia improving mildly improving niddm check sugar Milagro Miller MD Jul 24, 2020 20:56
--- NOTE | 2020-07-24 23:10 | Psychiatric Progress Note ---
Psychiatry Progress Note Psychiatry Progress Note Subjective agitated came out o his room and was agitated Medications Current Medications Medications (Trade) Dose Ordered Sig/Dalia Route PRN Reason Start Time Stop Time Status Last Admin Dose Admin Acetaminophen (Tylenol) 500 mg Q6H PRN ORAL Mild Pain (Pain Scale 1-3) 07/21/20 08:15 08/20/20 08:14 07/23/20 04:58 Ascorbic Acid (Vitamin C) 500 mg TWICE A DAY ORAL 07/23/20 09:00 08/22/20 08:59 07/24/20 18:05 Dexamethasone Sodium Phosphate (Decadron 4mg/ml vial) 6 mg DAILY IVP 07/22/20 09:00 07/30/20 12:00 07/24/20 10:00 Dextrose (Dextrose 50%) 25 ml Q30M PRN IV Hypoglycemia 07/21/20 13:30 10/19/20 13:29 Dextrose (Dextrose 50%) 50 ml Q30M PRN IV Hypoglycemia 07/21/20 13:30 10/19/20 13:29 Enoxaparin Sodium (Lovenox) 40 mg DAILY SUBQ 07/22/20 09:00 10/20/20 08:59 07/24/20 10:00 Insulin Aspart (NovoLOG) BEFORE MEALS AND HS SUBQ 07/21/20 16:30 10/19/20 16:29 07/24/20 21:00 Insulin Aspart (NovoLOG) 8 units TIWM SUBQ 07/24/20 07:00 10/19/20 16:59 07/24/20 17:45 Insulin Detemir (Levemir) 8 units EVERY 12 HOURS SUBQ 07/23/20 09:00 10/19/20 20:59 07/24/20 21:00 Lorazepam (Ativan) 1 mg Q6H PRN ORAL For Anxiety 07/22/20 14:30 07/29/20 14:29 07/24/20 11:23 Mirtazapine (Remeron) 15 mg BEDTIME ORAL 07/22/20 21:00 10/20/20 20:59 07/24/20 21:00 Remdesivir 100 mg/ Sodium Chloride 250 ml @ 250 mls/hr Q24H IV 07/24/20 16:00 07/27/20 16:59 07/24/20 16:17 Neurological/Psychiatric: Reports: anxiety, depressed, emotional problems Allergies: Coded Allergies: No Known Allergies (Unverified , 07/21/20) Objective Data Height (Feet): 5 Height (Inches): 6.00 Weight (Pounds): 172 General Appearance: alert, confused, agitated Additional Comments: alert, disoriented to self, place, situation. Mood is anxious. Affect is blunted, congruent with mood. Thought process is concrete. Thought content, no suicidal or homicidal ideation. Cognition is intact. Insight and judgment fair. Assessment/Plan [place] I: ASSESSMENT: [place] I Anxiety disorder. [place] II Deferred. [place] III As above. [place] IV Low. [place] V 20 PLAN: 1. We will continue current medication. 2. Provide the patient with reality orientation and supportive therapy. Status: progressing Status Narrative ASSESSMENT: [place] I Anxiety disorder. [place] II Deferred. [place] III As above. [place] IV Low. [place] V 20 PLAN: 1. We will continue current medication. 2. Provide the patient with reality orientation and supportive therapy. Assessment/Plan: ASSESSMENT: [place] I Anxiety disorder. [place] II Deferred. [place] III As above. [place] IV Low. [place] V 20 PLAN: 1. We will continue current medication. 2. Provide the patient with reality orientation and supportive therapy. Ron Bridges MD Jul 24, 2020 23:10
[2020-07-25] VITALS: BP 140/83
--- NOTE | 2020-07-25 00:54 | NUR ---
NURSE NOTES: Pt was found out of restraints with NRB mask off satting at 76%. RT was called and recommended stat ABG. Will input the order and will continue to monitor.
--- NOTE | 2020-07-25 02:39 | NUR ---
NURSE NOTES: Pt took mask off again and o2 sat was 38%, restraints were tightened and nrb was out back on. RT was notified. Will continue to monitor.
[2020-07-25 04:00] VITALS: BP 128/81
[2020-07-25] MEDS: NovoLOG Insulin Flexpen SUBQ SCH ×7 (06:30→21:45)
--- NOTE | 2020-07-25 06:35 | General Progress Note ---
Subjective Allergies: Coded Allergies: No Known Allergies (Unverified , 07/21/20) Subjective events noted interval notes reviewed glucose values on higher side Item Value Date Time Bedside Blood Glucose 265 mg/dl H 07/24/20 2100 Bedside Blood Glucose 177 mg/dl H 07/24/20 1745 Bedside Blood Glucose 286 mg/dl H 07/24/20 1200 Bedside Blood Glucose 233 mg/dl H 07/24/20 1000 Bedside Blood Glucose 125 mg/dl H 07/24/20 0630 Objective Last 24 Hour Vital Signs Date Time Temp Pulse Resp B/P (MAP) Pulse Ox O2 Delivery O2 Flow Rate FiO2 07/25/20 00:00 115 07/25/20 00:00 96.0 97 24 140/83 (102) 86 07/24/20 21:00 Non-Rebreather 15.0 07/24/20 20:09 95 Non-Rebreather 15.0 100 07/24/20 20:00 98.1 89 24 109/71 (84) 96 07/24/20 20:00 105 07/24/20 16:00 97 07/24/20 16:00 97.2 106 24 113/70 (84) 92 07/24/20 12:00 128 07/24/20 12:00 98.1 121 26 125/74 (91) 97 07/24/20 11:54 93 Non-Rebreather 15.0 100 07/24/20 11:53 121 26 125/74 97 07/24/20 11:23 137 25 127/83 91 07/24/20 09:00 Venturi Mask 07/24/20 08:00 97.8 137 25 127/83 (98) 91 Intake and Output 07/24/20 07/25/20 19:00 07:00 Intake Total 500 ml Output Total 550 ml Balance 500 ml -550 ml Intake Oral 500 ml Output Urine Total 550 ml # Voids 1 # Bowel Movements 1 Laboratory Tests 07/24/20 10:10: POC Whole Blood Glucose [Pending] 07/24/20 11:26: POC Whole Blood Glucose [Pending] 07/24/20 17:09: POC Whole Blood Glucose [Pending] 07/25/20 00:53: Arterial Blood pH 7.447, Arterial Blood Partial Pressure CO2 45.4H, Arterial Blood Partial Pressure O2 54.9L, Arterial Blood HCO3 30.6H, Arterial Blood Oxygen Saturation 88.6*L, Arterial Blood Base Excess 5.7H, Francisco Test Positive Height (Feet): 5 Height (Inches): 6.00 Weight (Pounds): 172 Objective Current Medications Medications (Trade) Dose Ordered Sig/Dalia Route PRN Reason Start Time Stop Time Status Last Admin Dose Admin Acetaminophen (Tylenol) 500 mg Q6H PRN ORAL Mild Pain (Pain Scale 1-3) 07/21/20 08:15 08/20/20 08:14 07/23/20 04:58 Ascorbic Acid (Vitamin C) 500 mg TWICE A DAY ORAL 07/23/20 09:00 08/22/20 08:59 07/24/20 18:05 Dexamethasone Sodium Phosphate (Decadron 4mg/ml vial) 6 mg DAILY IVP 07/22/20 09:00 07/30/20 12:00 07/24/20 10:00 Dextrose (Dextrose 50%) 25 ml Q30M PRN IV Hypoglycemia 07/21/20 13:30 10/19/20 13:29 Dextrose (Dextrose 50%) 50 ml Q30M PRN IV Hypoglycemia 07/21/20 13:30 10/19/20 13:29 Enoxaparin Sodium (Lovenox) 40 mg DAILY SUBQ 07/22/20 09:00 10/20/20 08:59 07/24/20 10:00 Insulin Aspart (NovoLOG) BEFORE MEALS AND HS SUBQ 07/21/20 16:30 10/19/20 16:29 07/24/20 21:00 Insulin Aspart (NovoLOG) 8 units TIWM SUBQ 07/24/20 07:00 10/19/20 16:59 07/24/20 17:45 Insulin Detemir (Levemir) 8 units EVERY 12 HOURS SUBQ 07/23/20 09:00 10/19/20 20:59 07/24/20 21:00 Lorazepam (Ativan) 1 mg Q6H PRN ORAL For Anxiety 07/22/20 14:30 07/29/20 14:29 07/24/20 11:23 Mirtazapine (Remeron) 15 mg BEDTIME ORAL 07/22/20 21:00 10/20/20 20:59 07/24/20 21:00 Remdesivir 100 mg/ Sodium Chloride 250 ml @ 250 mls/hr Q24H IV 07/24/20 16:00 07/27/20 16:59 07/24/20 16:17 Assessment/Plan Problem List: (1) Pneumonia due to COVID-19 virus ICD Codes: U07.1 - COVID-19; J12.89 - Other viral pneumonia SNOMED: [id number] (2) Hyperglycemia due to type 2 diabetes mellitus ICD Codes: E11.65 - Type 2 diabetes mellitus with hyperglycemia; J12.89 - Other viral pneumonia SNOMED: 660239387186286, 30509959 (3) Acute respiratory failure with hypoxia ICD Codes: J96.01 - Acute respiratory failure with hypoxia; J12.89 - Other viral pneumonia SNOMED: 57133298, 935192305 Status: progressing Assessment/Plan: continue Levemir 8 units bid increase Novolog to 10 units ac tid + sliding scale hypoglycemia protocol in order Sandor Briceño MD Jul 25, 2020 06:35
--- NOTE | 2020-07-25 07:35 | NUR ---
NURSE HAND-OFF REPORT: Important Events on Shift: pt desatted to 38% on room air Patient Status: unstable Diet: ccho low Pending Orders: n Pending Results/Labs:n Pending MD notification:n Latest Vital Signs: Temperature 96.0 , Pulse 116 , B/P 128 /81 , Respiratory Rate 24 , O2 SAT 90 , Non-Rebreather, O2 Flow Rate 15.0 . Vital Sign Comment: stable EKG Rhythm: Sinus Tachycardia Rhythm change?: N MD Notified?: - MD Response: Latest Van Fall Score: 35 Fall Risk: Medium Risk Safety Measures: Call light Within Reach, Bed Alarm Zone 1, Side Rails Side Rails x2, Bed position Low and Locked. Fall Precautions: Yellow Socks Yellow Gown Door Sign Report given to CHARMAINE Chisholm.
[2020-07-25 07:49] VITALS: BP 143/83
--- NOTE | 2020-07-25 08:11 | NUR ---
NURSE NOTES: Received patient in bed. Awake, A/O x3. On 100% Nonrebreather mask. Soft wrist restraints off, patient vocalized understanding of use of restraints, patient states "I was previously confused." Patient demonstrates use of call light. Yellow socks placed on patient. Side rails up x2, bed low and locked, bed alarm on.
[2020-07-25] MEDS: Ascorbic Acid 500mg tab ORAL SCH ×2 (08:48→17:05)
[2020-07-25 09:01] LABS: HEMATOCRIT 43.1 % (42.0-52.0); HEMOGLOBIN 15.1 G/DL (14.2-18.0); MEAN CORPUSCULAR VOLUME 86 FL (80-99); PLATELET COUNT 200 K/UL (150-450); RED BLOOD COUNT 5.01 M/UL (4.70-6.10); RED CELL DISTRIBUTION WIDTH 12.8 % (11.6-14.8); WHITE BLOOD COUNT 20.1 K/UL (4.8-10.8)
[2020-07-25] MEDS: Levemir Flexpen SUBQ SCH ×2 (09:01→21:43)
[2020-07-25] MEDS: Enoxaparin 40mg Inj SUBQ SCH (09:01)
[2020-07-25 09:10] LABS: ALANINE AMINOTRANSFERASE 37 U/L (12-78); ALKALINE PHOSPHATASE 114 U/L (46-116); ASPARTATE AMINO TRANSFERASE 40 U/L (15-37); BILIRUBIN,DIRECT 0.2 MG/DL (0.0-0.3); BILIRUBIN,TOTAL 0.5 MG/DL (0.2-1.0)
[2020-07-25 09:20] LABS: ALANINE AMINOTRANSFERASE 36 U/L (12-78); ALBUMIN 1.9 G/DL (3.4-5.0); ALBUMIN/GLOBULIN RATIO 0.4 (1.0-2.7); ALKALINE PHOSPHATASE 114 U/L (46-116); ANION GAP 7 mmol/L (5-15); ASPARTATE AMINO TRANSFERASE 39 U/L (15-37); BILIRUBIN,DIRECT 0.2 MG/DL (0.0-0.3); BILIRUBIN,TOTAL 0.5 MG/DL (0.2-1.0); BLOOD UREA NITROGEN 20 mg/dL (7-18); CALCIUM 8.1 MG/DL (8.5-10.1); CARBON DIOXIDE 30 MMOL/L (21-32); CHLORIDE 100 MMOL/L (98-107); CREATININE 0.8 MG/DL (0.55-1.30); POTASSIUM 3.5 MMOL/L (3.5-5.1); SODIUM 137 MMOL/L (136-145)
--- NOTE | 2020-07-25 10:19 | NUR ---
RD ASSESSMENT & RECOMMENDATIONS SEE CARE ACTIVITY FOR COMPLETE ASSESSMENT DAILY ESTIMATED NEEDS: Needs based on DM, Pulmonary/ 68.9kg 25-30 kcals/kg 4542-9431 total kcals 1-1.5 g protein/kg 69-103 g total protein 25-30 mL/kg 7898-9377 total fluid mLs NUTRITION DIAGNOSIS: Altered nutrition related lab values R/T diabetes w/ hyperglycemia as evidenced by elev BGs and POC glu (493, 550 -> 235 200 197), A1C of 10.2, U glu 4+, pt on Decadron. CURRENT DIET: CCHO LOW PO DIET RECOMMENDATIONS: CCHO LOW + double protein portions ADDITIONAL RECOMMENDATIONS: * Calibrated bedscale wt * Monitor for hypoglycemia w/ increased insulin regimen * Monitor for continued fair-good PO intake and tolerance.
--- NOTE | 2020-07-25 11:43 | Infectious Diseases Prog Note ---
Assessment/Plan Assessment/Plan IMPRESSION: COVID-19 disease seems to be severe. Diabetes mellitus with hyperglycemia. Hypoxemic. Lymphocytopenia. Sinus tachycardia Leukocytosis RECOMMENDATION: Continue dexamethasone & remdesivir Subjective ROS Limited/Unobtainable: Yes Constitutional: Denies: fever Allergies: Coded Allergies: No Known Allergies (Unverified , 07/21/20) Objective Last 24 Hour Vital Signs Date Time Temp Pulse Resp B/P (MAP) Pulse Ox O2 Delivery O2 Flow Rate FiO2 07/25/20 09:58 92 Non-Rebreather 15.0 100 07/25/20 09:00 Non-Rebreather 15.0 07/25/20 08:00 93 07/25/20 07:49 97.3 101 22 143/83 (103) 90 07/25/20 04:00 96.0 97 24 128/81 (97) 90 07/25/20 04:00 116 07/25/20 00:00 115 07/25/20 00:00 96.0 97 24 140/83 (102) 86 07/24/20 21:00 Non-Rebreather 15.0 07/24/20 20:09 95 Non-Rebreather 15.0 100 07/24/20 20:00 98.1 89 24 109/71 (84) 96 07/24/20 20:00 105 07/24/20 16:00 97 07/24/20 16:00 97.2 106 24 113/70 (84) 92 07/24/20 12:00 128 07/24/20 12:00 98.1 121 26 125/74 (91) 97 07/24/20 11:54 93 Non-Rebreather 15.0 100 07/24/20 11:53 121 26 125/74 97 Height (Feet): 5 Height (Inches): 6.00 Weight (Pounds): 172 HEENT: mucous membranes moist Respiratory/Chest: other - oxygen by rebreathing mask Cardiovascular: normal rate Abdomen: soft, non tender Extremities: no edema Neurologic/Psychiatric: other - sleeping Laboratory Tests Test 07/24/20 17:09 07/25/20 00:53 07/25/20 07:55 POC Whole Blood Glucose Pending Arterial Blood pH 7.447 (7.350-7.450) Arterial Blood Partial Pressure CO2 45.4 mmHg (35.0-45.0) H Arterial Blood Partial Pressure O2 54.9 mmHg (75.0-100.0) L Arterial Blood HCO3 30.6 mmol/L (22.0-26.0) H Arterial Blood Oxygen Saturation 88.6 % (95-100) *L Arterial Blood Base Excess 5.7 (-2-2) H Francisco Test Positive White Blood Count 20.1 K/UL (4.8-10.8) H Red Blood Count 5.01 M/UL (4.70-6.10) Hemoglobin 15.1 G/DL (14.2-18.0) Hematocrit 43.1 % (42.0-52.0) Mean Corpuscular Volume 86 FL (80-99) Mean Corpuscular Hemoglobin 30.2 PG (27.0-31.0) Mean Corpuscular Hemoglobin Concent 35.1 G/DL (32.0-36.0) Red Cell Distribution Width 12.8 % (11.6-14.8) Platelet Count 200 K/UL (150-450) Mean Platelet Volume 6.0 FL (6.5-10.1) L Neutrophils (%) (Auto) % (45.0-75.0) Lymphocytes (%) (Auto) % (20.0-45.0) Monocytes (%) (Auto) % (1.0-10.0) Eosinophils (%) (Auto) % (0.0-3.0) Basophils (%) (Auto) % (0.0-2.0) Differential Total Cells Counted 100 Neutrophils % (Manual) 93 % (45-75) H Lymphocytes % (Manual) 4 % (20-45) L Monocytes % (Manual) 3 % (1-10) Eosinophils % (Manual) 0 % (0-3) Basophils % (Manual) 0 % (0-2) Band Neutrophils 0 % (0-8) Platelet Estimate Adequate Platelet Morphology Normal Red Blood Cell Morphology Normal Sodium Level 137 MMOL/L (136-145) Potassium Level 3.5 MMOL/L (3.5-5.1) Chloride Level 100 MMOL/L (98-107) Carbon Dioxide Level 30 MMOL/L (21-32) Anion Gap 7 mmol/L (5-15) Blood Urea Nitrogen 20 mg/dL (7-18) H Creatinine 0.8 MG/DL (0.55-1.30) Estimat Glomerular Filtration Rate > 60 mL/min (>60) Glucose Level 232 MG/DL (74-106) H Calcium Level 8.1 MG/DL (8.5-10.1) L Total Bilirubin 0.5 MG/DL (0.2-1.0) Direct Bilirubin 0.2 MG/DL (0.0-0.3) Aspartate Amino Transf (AST/SGOT) 40 U/L (15-37) H Alanine Aminotransferase (ALT/SGPT) 37 U/L (12-78) Alkaline Phosphatase 114 U/L (46-116) Total Protein 6.0 G/DL (6.4-8.2) L Albumin 2.0 G/DL (3.4-5.0) L Globulin 4.9 g/dL Albumin/Globulin Ratio 0.4 (1.0-2.7) L Current Medications Medications (Trade) Dose Ordered Sig/Dalia Route PRN Reason Start Time Stop Time Status Last Admin Dose Admin Acetaminophen (Tylenol) 500 mg Q6H PRN ORAL Mild Pain (Pain Scale 1-3) 07/21/20 08:15 08/20/20 08:14 07/23/20 04:58 Ascorbic Acid (Vitamin C) 500 mg TWICE A DAY ORAL 07/23/20 09:00 08/22/20 08:59 07/25/20 08:48 Dexamethasone Sodium Phosphate (Decadron 4mg/ml vial) 6 mg DAILY IVP 07/22/20 09:00 07/30/20 12:00 07/25/20 08:48 Dextrose (Dextrose 50%) 25 ml Q30M PRN IV Hypoglycemia 07/21/20 13:30 10/19/20 13:29 Dextrose (Dextrose 50%) 50 ml Q30M PRN IV Hypoglycemia 07/21/20 13:30 10/19/20 13:29 Enoxaparin Sodium (Lovenox) 40 mg DAILY SUBQ 07/22/20 09:00 10/20/20 08:59 07/25/20 09:01 Insulin Aspart (NovoLOG) BEFORE MEALS AND HS SUBQ 07/21/20 16:30 10/19/20 16:29 07/25/20 06:30 Insulin Aspart (NovoLOG) 10 units TIWM SUBQ 07/25/20 07:00 10/19/20 16:59 07/25/20 07:10 Insulin Detemir (Levemir) 8 units EVERY 12 HOURS SUBQ 07/23/20 09:00 10/19/20 20:59 07/25/20 09:01 Lorazepam (Ativan) 1 mg Q6H PRN ORAL For Anxiety 07/22/20 14:30 07/29/20 14:29 07/24/20 11:23 Mirtazapine (Remeron) 15 mg BEDTIME ORAL 07/22/20 21:00 10/20/20 20:59 07/24/20 21:00 Remdesivir 100 mg/ Sodium Chloride 250 ml @ 250 mls/hr Q24H IV 07/24/20 16:00 07/27/20 16:59 07/24/20 16:17 Christian Caraballo MD Jul 25, 2020 11:43
[2020-07-25 12:00] VITALS: BP 129/74
--- NOTE | 2020-07-25 12:18 | NUR ---
NURSE NOTES: PRN janiitussin for cough order obtained per Maco Caraballo.
[2020-07-25] MEDS: guaiFENesin 100mg/5ml Liq ud ORAL PRN ×3 (12:33→22:38)
--- NOTE | 2020-07-25 14:40 | Pulmonology Progress Note ---
Subjective ROS Limited/Unobtainable: Yes Interval Events: confused and noncompliant per RN Constitutional: Denies: fever HEENT: Repors: no symptoms Respiratory: Reports: shortness of breath Cardiovascular: Reports: no symptoms; Denies: chest pain, palpitations Gastrointestinal/Abdominal: Reports: no symptoms Neurologic: Reports: other - anxiety Allergies: Coded Allergies: No Known Allergies (Unverified , 07/21/20) All Systems: reviewed and negative except above Objective Last 24 Hour Vital Signs Date Time Temp Pulse Resp B/P (MAP) Pulse Ox O2 Delivery O2 Flow Rate FiO2 07/25/20 12:00 85 07/25/20 12:00 97.9 81 22 129/74 (92) 90 07/25/20 09:58 92 Non-Rebreather 15.0 100 07/25/20 09:00 Non-Rebreather 15.0 07/25/20 08:00 93 07/25/20 07:49 97.3 101 22 143/83 (103) 90 07/25/20 04:00 96.0 97 24 128/81 (97) 90 07/25/20 04:00 116 07/25/20 00:00 115 07/25/20 00:00 96.0 97 24 140/83 (102) 86 07/24/20 21:00 Non-Rebreather 15.0 07/24/20 20:09 95 Non-Rebreather 15.0 100 07/24/20 20:00 98.1 89 24 109/71 (84) 96 07/24/20 20:00 105 07/24/20 16:00 97 07/24/20 16:00 97.2 106 24 113/70 (84) 92 Intake and Output 07/24/20 07/25/20 19:00 07:00 Intake Total 500 ml Output Total 550 ml Balance 500 ml -550 ml Intake Oral 500 ml Output Urine Total 550 ml # Voids 1 1 # Bowel Movements 1 Objective 07/24/2020 confused and non compliant with oxygen per RN; on Venturi mask 07/23/2020 currently saturating well on 12 L oxygen via Venturi mask General Appearance: no acute distress HEENT: normocephalic Respiratory: chest wall non-tender, crackles/rales Cardiovascular: normal peripheral pulses, normal rate Abdomen: normal bowel sounds Extremities: no cyanosis, no clubbing Laboratory Tests 07/24/20 17:09: POC Whole Blood Glucose [Pending] 07/25/20 00:53: Arterial Blood pH 7.447, Arterial Blood Partial Pressure CO2 45.4H, Arterial Blood Partial Pressure O2 54.9L, Arterial Blood HCO3 30.6H, Arterial Blood Oxygen Saturation 88.6*L, Arterial Blood Base Excess 5.7H, Francisco Test Positive 07/25/20 07:55: White Blood Count 20.1H, Red Blood Count 5.01, Hemoglobin 15.1, Hematocrit 43.1, Mean Corpuscular Volume 86, Mean Corpuscular Hemoglobin 30.2, Mean Corpuscular Hemoglobin Concent 35.1, Red Cell Distribution Width 12.8, Platelet Count 200, Mean Platelet Volume 6.0L, Neutrophils (%) (Auto) , Lymphocytes (%) (Auto) , Monocytes (%) (Auto) , Eosinophils (%) (Auto) , Basophils (%) (Auto) , Differential Total Cells Counted 100, Neutrophils % (Manual) 93H, Lymphocytes % (Manual) 4L, Monocytes % (Manual) 3, Eosinophils % (Manual) 0, Basophils % (Manual) 0, Band Neutrophils 0, Platelet Estimate Adequate, Platelet Morphology Normal, Red Blood Cell Morphology Normal, Sodium Level 137, Potassium Level 3.5, Chloride Level 100, Carbon Dioxide Level 30, Anion Gap 7, Blood Urea Nitrogen 20H, Creatinine 0.8, Estimat Glomerular Filtration Rate > 60, Glucose Level 232H , Calcium Level 8.1L, Total Bilirubin 0.5, Direct Bilirubin 0.2, Aspartate Amino Transf (AST/SGOT) 40H, Alanine Aminotransferase (ALT/SGPT) 37, Alkaline Phosphatase 114, Total Protein 6.0L, Albumin 2.0L, Globulin 4.9, Albumin/Globulin Ratio 0.4L Current Medications Medications (Trade) Dose Ordered Sig/Dalia Route PRN Reason Start Time Stop Time Status Last Admin Dose Admin Acetaminophen (Tylenol) 500 mg Q6H PRN ORAL Mild Pain (Pain Scale 1-3) 07/21/20 08:15 08/20/20 08:14 07/23/20 04:58 Ascorbic Acid (Vitamin C) 500 mg TWICE A DAY ORAL 07/23/20 09:00 08/22/20 08:59 07/25/20 08:48 Dexamethasone Sodium Phosphate (Decadron 4mg/ml vial) 6 mg DAILY IVP 07/22/20 09:00 07/30/20 12:00 07/25/20 08:48 Dextrose (Dextrose 50%) 25 ml Q30M PRN IV Hypoglycemia 07/21/20 13:30 10/19/20 13:29 Dextrose (Dextrose 50%) 50 ml Q30M PRN IV Hypoglycemia 07/21/20 13:30 10/19/20 13:29 Enoxaparin Sodium (Lovenox) 40 mg DAILY SUBQ 07/22/20 09:00 10/20/20 08:59 07/25/20 09:01 Guaifenesin (Robitussin) 200 mg Q4H PRN ORAL For Cough 07/25/20 12:30 10/23/20 12:29 07/25/20 12:33 Insulin Aspart (NovoLOG) BEFORE MEALS AND HS SUBQ 07/21/20 16:30 10/19/20 16:29 07/25/20 11:46 Insulin Aspart (NovoLOG) 10 units TIWM SUBQ 07/25/20 07:00 10/19/20 16:59 07/25/20 11:54 Insulin Detemir (Levemir) 8 units EVERY 12 HOURS SUBQ 07/23/20 09:00 10/19/20 20:59 07/25/20 09:01 Lorazepam (Ativan) 1 mg Q6H PRN ORAL For Anxiety 07/22/20 14:30 07/29/20 14:29 07/24/20 11:23 Mirtazapine (Remeron) 15 mg BEDTIME ORAL 07/22/20 21:00 10/20/20 20:59 07/24/20 21:00 Remdesivir 100 mg/ Sodium Chloride 250 ml @ 250 mls/hr Q24H IV 07/24/20 16:00 07/27/20 16:59 07/24/20 16:17 Assessment/Plan Assessment/Plan Assessment/Plan 1. COVID-19 pneumonia. - On Decadron - on remdesivir per ID specialist - Currently saturating at 89% on NRB 15 - CXR 07/24 Marked worsening of bilateral infiltrates 2. Elevated inflammatory markers. 3. Diabetes mellitus. -On glucose lowering agents 4. DVT prophylaxis - On Lovenox 5. hx of anxiety and confusion - management per Dr. Bridges We will follow carefully The care of this patient was discussed with my supervising physician Time spent for this encounter was approximately 31 minutes The patient was seen and examined at bedside and all new and available data was reviewed in the patients chart. I agree with the above findings, impression, and plan. (Patient was seen earlier today. Signature timestamp does not reflect patient encounter time) Zhao Umana MD Jul 25, 2020 14:40 Pradeep Monique MD Jul 25, 2020 17:31
--- NOTE | 2020-07-25 14:56 | NUR ---
CASE MANAGEMENT:REVIEW 07/25/20 SI: COVID PNA 97.3 101 22 143/83 90% ON 15L NRB WBC+20.6 IS: IV REMDESIVIR Q24 IV DECADRON QD LOVENOX SQ QD : TELEMETRY STATUS DCP: FROM HOME
[2020-07-25] MEDS: Maintenance Dose:Remdesivir 100mg/NS 230ml x 4 Doses IV SCH ×2 (15:04)
[2020-07-25 16:00] VITALS: BP 124/76
--- NOTE | 2020-07-25 19:34 | Psychiatric Progress Note ---
Psychiatry Progress Note Psychiatry Progress Note Subjective the pt is less agitated calm manageable Medications Current Medications Medications (Trade) Dose Ordered Sig/Dlaia Route PRN Reason Start Time Stop Time Status Last Admin Dose Admin Acetaminophen (Tylenol) 500 mg Q6H PRN ORAL Mild Pain (Pain Scale 1-3) 07/21/20 08:15 08/20/20 08:14 07/23/20 04:58 Ascorbic Acid (Vitamin C) 500 mg TWICE A DAY ORAL 07/23/20 09:00 08/22/20 08:59 07/25/20 17:05 Dexamethasone Sodium Phosphate (Decadron 4mg/ml vial) 6 mg DAILY IVP 07/22/20 09:00 07/30/20 12:00 07/25/20 08:48 Dextrose (Dextrose 50%) 25 ml Q30M PRN IV Hypoglycemia 07/21/20 13:30 10/19/20 13:29 Dextrose (Dextrose 50%) 50 ml Q30M PRN IV Hypoglycemia 07/21/20 13:30 10/19/20 13:29 Enoxaparin Sodium (Lovenox) 40 mg DAILY SUBQ 07/22/20 09:00 10/20/20 08:59 07/25/20 09:01 Guaifenesin (Robitussin) 200 mg Q4H PRN ORAL For Cough 07/25/20 12:30 10/23/20 12:29 07/25/20 17:05 Insulin Aspart (NovoLOG) BEFORE MEALS AND HS SUBQ 07/21/20 16:30 10/19/20 16:29 07/25/20 16:45 Insulin Aspart (NovoLOG) 10 units TIWM SUBQ 07/25/20 07:00 10/19/20 16:59 07/25/20 16:45 Insulin Detemir (Levemir) 8 units EVERY 12 HOURS SUBQ 07/23/20 09:00 10/19/20 20:59 07/25/20 09:01 Lorazepam (Ativan) 1 mg Q6H PRN ORAL For Anxiety 07/22/20 14:30 07/29/20 14:29 07/24/20 11:23 Mirtazapine (Remeron) 15 mg BEDTIME ORAL 07/22/20 21:00 10/20/20 20:59 07/24/20 21:00 Remdesivir 100 mg/ Sodium Chloride 250 ml @ 250 mls/hr Q24H IV 07/24/20 16:00 07/27/20 16:59 07/25/20 15:04 Neurological/Psychiatric: Reports: anxiety, depressed, emotional problems Allergies: Coded Allergies: No Known Allergies (Unverified , 07/21/20) Objective Data Height (Feet): 5 Height (Inches): 6.00 Weight (Pounds): 172 General Appearance: alert, confused, agitated Additional Comments: alert, oriented to self, place, situation. Mood is anxious. Affect is blunted, congruent with mood. Thought process is concrete. Thought content, no suicidal or homicidal ideation. Cognition is intact. Insight and judgment fair. Assessment/Plan [place] I: ASSESSMENT: [place] I Anxiety disorder. [place] II Deferred. [place] III As above. [place] IV Low. [place] V 20 PLAN: 1. We will continue current medication. 2. Provide the patient with reality orientation and supportive therapy. Status: progressing Status Narrative ASSESSMENT: [place] I Anxiety disorder. [place] II Deferred. [place] III As above. [place] IV Low. [place] V 20 PLAN: 1. We will continue current medication. 2. Provide the patient with reality orientation and supportive therapy. Assessment/Plan: ASSESSMENT: [place] I Anxiety disorder. [place] II Deferred. [place] III As above. [place] IV Low. [place] V 20 PLAN: 1. We will continue current medication. 2. Provide the patient with reality orientation and supportive therapy. Ron Bridges MD Jul 25, 2020 19:34
[2020-07-25 20:00] VITALS: BP 124/75
--- NOTE | 2020-07-25 21:10 | NUR ---
NURSE NOTES: Received written report. Pt is awake, on high spears position in bed, A/O x 3-4. Pt is not in distress, denies pain. Pt is coughing. Vital signs are stable. Tolerating non-rebreather mask 15L 100% FiO2 saturating 92-93%. IV line in R AC is intact and patent. Sinus Rhythm on the library monitor. Bed is in lowest position, bed alarm on, call light is with the pt. Will continue to monitor pt. Will continue with the plan of care.
--- NOTE | 2020-07-25 21:17 | General Progress Note ---
Subjective ROS Limited/Unobtainable: Yes Allergies: Coded Allergies: No Known Allergies (Unverified , 07/21/20) Objective Last 24 Hour Vital Signs Date Time Temp Pulse Resp B/P (MAP) Pulse Ox O2 Delivery O2 Flow Rate FiO2 07/25/20 19:36 93 Non-Rebreather 15.0 100 07/25/20 16:00 89 07/25/20 16:00 97.6 75 22 124/76 (92) 92 07/25/20 12:00 85 07/25/20 12:00 97.9 81 22 129/74 (92) 90 07/25/20 09:58 92 Non-Rebreather 15.0 100 07/25/20 09:00 Non-Rebreather 15.0 07/25/20 08:00 93 07/25/20 07:49 97.3 101 22 143/83 (103) 90 07/25/20 04:00 96.0 97 24 128/81 (97) 90 07/25/20 04:00 116 07/25/20 00:00 115 07/25/20 00:00 96.0 97 24 140/83 (102) 86 Intake and Output 07/24/20 07/25/20 19:00 07:00 Intake Total 500 ml Output Total 550 ml Balance 500 ml -550 ml Intake Oral 500 ml Output Urine Total 550 ml # Voids 1 1 # Bowel Movements 1 Laboratory Tests 07/25/20 00:53: Arterial Blood pH 7.447, Arterial Blood Partial Pressure CO2 45.4H, Arterial Blood Partial Pressure O2 54.9L, Arterial Blood HCO3 30.6H, Arterial Blood Oxygen Saturation 88.6*L, Arterial Blood Base Excess 5.7H, Francisco Test Positive 07/25/20 07:55: White Blood Count 20.1H, Red Blood Count 5.01, Hemoglobin 15.1, Hematocrit 43.1, Mean Corpuscular Volume 86, Mean Corpuscular Hemoglobin 30.2, Mean Corpuscular Hemoglobin Concent 35.1, Red Cell Distribution Width 12.8, Platelet Count 200, Mean Platelet Volume 6.0L, Neutrophils (%) (Auto) , Lymphocytes (%) (Auto) , Monocytes (%) (Auto) , Eosinophils (%) (Auto) , Basophils (%) (Auto) , Differential Total Cells Counted 100, Neutrophils % (Manual) 93H, Lymphocytes % (Manual) 4L, Monocytes % (Manual) 3, Eosinophils % (Manual) 0, Basophils % (Manual) 0, Band Neutrophils 0, Platelet Estimate Adequate, Platelet Morphology Normal, Red Blood Cell Morphology Normal, Sodium Level 137, Potassium Level 3.5, Chloride Level 100, Carbon Dioxide Level 30, Anion Gap 7, Blood Urea Nitrogen 20H, Creatinine 0.8, Estimat Glomerular Filtration Rate > 60, Glucose Level 232H , Calcium Level 8.1L, Total Bilirubin 0.5, Direct Bilirubin 0.2, Aspartate Amino Transf (AST/SGOT) 40H, Alanine Aminotransferase (ALT/SGPT) 37, Alkaline Phosphatase 114, Total Protein 6.0L, Albumin 2.0L, Globulin 4.9, Albumin/Gl obulin Ratio 0.4L 07/25/20 16:32: POC Whole Blood Glucose [Pending] Height (Feet): 5 Height (Inches): 6.00 Weight (Pounds): 172 Assessment/Plan Problem List: (1) Acute respiratory failure with hypoxia ICD Codes: J96.01 - Acute respiratory failure with hypoxia; J12.89 - Other viral pneumonia SNOMED: 65713036, 664475718 (2) Pneumonia due to COVID-19 virus ICD Codes: U07.1 - COVID-19; J12.89 - Other viral pneumonia SNOMED: 765929599289807602 (3) Hyperglycemia due to type 2 diabetes mellitus ICD Codes: E11.65 - Type 2 diabetes mellitus with hyperglycemia; J12.89 - Other viral pneumonia SNOMED: 146160486250288, 85121467 Status: progressing Assessment/Plan: covid positive pna tahcycardia nidds reviewed chart and labs afebrile Milagro Miller MD Jul 25, 2020 21:17
--- NOTE | 2020-07-25 23:28 | NUR ---
NURSE NOTES: O2 saturation remains on 85%. Respiratory Therapist called to check on the pt. Will closely monitor pt.
--- NOTE | 2020-07-25 23:30 | NUR ---
NURSE NOTES: Initial assessment done. Evening medications administered per order. O2 saturation remains 89-91%. Will continue to closely monitor pt. Will continue with the plan of care.
[2020-07-26] VITALS: BP 141/73
[2020-07-26 04:00] VITALS: BP 130/70
--- NOTE | 2020-07-26 04:00 | NUR ---
NURSE NOTES: Pt is asleep. O2 saturation drops to 89%. Vital signs remain stable. Will continue to monitor pt.
[2020-07-26] MEDS: NovoLOG Insulin Flexpen SUBQ SCH ×7 (05:43→21:00)
--- NOTE | 2020-07-26 06:34 | General Progress Note ---
Subjective ROS Limited/Unobtainable: Yes Allergies: Coded Allergies: No Known Allergies (Unverified , 07/21/20) Subjective events noted interval notes reviewed fasting glucose stable mealtime glucose elevated Item Value Date Time Bedside Blood Glucose 120 mg/dl 07/26/20 0604 Bedside Blood Glucose 242 mg/dl H 07/25/20 2145 Bedside Blood Glucose 268 mg/dl H 07/25/20 1645 Bedside Blood Glucose 274 mg/dl H 07/25/20 1154 Bedside Blood Glucose 274 mg/dl H 07/25/20 0901 Bedside Blood Glucose 274 mg/dl H 07/25/20 0630 Objective Last 24 Hour Vital Signs Date Time Temp Pulse Resp B/P (MAP) Pulse Ox O2 Delivery O2 Flow Rate FiO2 07/26/20 04:00 77 07/26/20 04:00 98.1 70 28 130/70 (90) 89 07/26/20 00:00 97.9 67 28 141/73 (95) 93 07/25/20 21:00 Non-Rebreather 15.0 07/25/20 20:00 97.9 95 24 124/75 (91) 93 07/25/20 20:00 68 07/25/20 19:36 93 Non-Rebreather 15.0 100 07/25/20 16:00 89 07/25/20 16:00 97.6 75 22 124/76 (92) 92 07/25/20 12:00 85 07/25/20 12:00 97.9 81 22 129/74 (92) 90 07/25/20 09:58 92 Non-Rebreather 15.0 100 07/25/20 09:00 Non-Rebreather 15.0 07/25/20 08:00 93 07/25/20 07:49 97.3 101 22 143/83 (103) 90 Intake and Output 07/25/20 07/26/20 19:00 07:00 Intake Total 800 ml 800 ml Output Total 1000 ml 2300 ml Balance -200 ml -1500 ml Intake Oral 800 ml 800 ml Output Urine Total 1000 ml 2300 ml # Voids 6 # Bowel Movements 1 Laboratory Tests 07/25/20 07:55: White Blood Count 20.1H, Red Blood Count 5.01, Hemoglobin 15.1, Hematocrit 43.1, Mean Corpuscular Volume 86, Mean Corpuscular Hemoglobin 30.2, Mean Corpuscular Hemoglobin Concent 35.1, Red Cell Distribution Width 12.8, Platelet Count 200, Mean Platelet Volume 6.0L, Neutrophils (%) (Auto) , Lymphocytes (%) (Auto) , Monocytes (%) (Auto) , Eosinophils (%) (Auto) , Basophils (%) (Auto) , Differential Total Cells Counted 100, Neutrophils % (Manual) 93H, Lymphocytes % (Manual) 4L, Monocytes % (Manual) 3, Eosinophils % (Manual) 0, Basophils % (Manual) 0, Band Neutrophils 0, Platelet Estimate Adequate, Platelet Morphology Normal, Red Blood Cell Morphology Normal, Sodium Level 137, Potassium Level 3.5, Chloride Level 100, Carbon Dioxide Level 30, Anion Gap 7, Blood Urea Nitrogen 20H, Creatinine 0.8, Estimat Glomerular Filtration Rate > 60, Glucose Level 232H , Calcium Level 8.1L, Total Bilirubin 0.5, Direct Bilirubin 0.2, Aspartate Amino Transf (AST/SGOT) 40H, Alanine Aminotransferase (ALT/SGPT) 37, Alkaline Phosphatase 114, Total Protein 6.0L, Albumin 2.0L, Globulin 4.9, Albumin/Globulin Ratio 0.4L 07/25/20 16:32: POC Whole Blood Glucose [Pending] 07/25/20 21:41: POC Whole Blood Glucose 242H 07/26/20 05:42: POC Whole Blood Glucose 120H Height (Feet): 5 Height (Inches): 6.00 Weight (Pounds): 172 Objective Current Medications Medications (Trade) Dose Ordered Sig/Dalia Route PRN Reason Start Time Stop Time Status Last Admin Dose Admin Acetaminophen (Tylenol) 500 mg Q6H PRN ORAL Mild Pain (Pain Scale 1-3) 07/21/20 08:15 08/20/20 08:14 07/23/20 04:58 Ascorbic Acid (Vitamin C) 500 mg TWICE A DAY ORAL 07/23/20 09:00 08/22/20 08:59 07/25/20 17:05 Dexamethasone Sodium Phosphate (Decadron 4mg/ml vial) 6 mg DAILY IVP 07/22/20 09:00 07/30/20 12:00 07/25/20 08:48 Dextrose (Dextrose 50%) 25 ml Q30M PRN IV Hypoglycemia 07/21/20 13:30 10/19/20 13:29 Dextrose (Dextrose 50%) 50 ml Q30M PRN IV Hypoglycemia 07/21/20 13:30 10/19/20 13:29 Enoxaparin Sodium (Lovenox) 40 mg DAILY SUBQ 07/22/20 09:00 10/20/20 08:59 07/25/20 09:01 Guaifenesin (Robitussin) 200 mg Q4H PRN ORAL For Cough 07/25/20 12:30 10/23/20 12:29 07/25/20 22:38 Insulin Aspart (NovoLOG) BEFORE MEALS AND HS SUBQ 07/21/20 16:30 10/19/20 16:29 07/25/20 21:45 Insulin Aspart (NovoLOG) 10 units TIWM SUBQ 07/25/20 07:00 10/19/20 16:59 07/26/20 06:04 Insulin Detemir (Levemir) 8 units EVERY 12 HOURS SUBQ 07/23/20 09:00 10/19/20 20:59 07/25/20 21:43 Lorazepam (Ativan) 1 mg Q6H PRN ORAL For Anxiety 07/22/20 14:30 07/29/20 14:29 07/24/20 11:23 Mirtazapine (Remeron) 15 mg BEDTIME ORAL 07/22/20 21:00 10/20/20 20:59 07/25/20 21:39 Remdesivir 100 mg/ Sodium Chloride 250 ml @ 250 mls/hr Q24H IV 07/24/20 16:00 07/27/20 16:59 07/25/20 15:04 Assessment/Plan Problem List: (1) Pneumonia due to COVID-19 virus ICD Codes: U07.1 - COVID-19; J12.89 - Other viral pneumonia SNOMED: 968438075765916207 (2) Hyperglycemia due to type 2 diabetes mellitus ICD Codes: E11.65 - Type 2 diabetes mellitus with hyperglycemia; J12.89 - Other viral pneumonia SNOMED: 590591496607882, 14256940 (3) Acute respiratory failure with hypoxia ICD Codes: J96.01 - Acute respiratory failure with hypoxia; J12.89 - Other viral pneumonia SNOMED: 95971913, 488020368 Status: progressing Assessment/Plan: continue Levemir 8 units bid increase Novolog to 12 units ac tid + sliding scale hypoglycemia protocol in order Sandor Briceño MD Jul 26, 2020 06:34
--- NOTE | 2020-07-26 07:21 | NUR ---
NURSE HAND-OFF REPORT: Important Events on Shift:None Patient Status: Full code Diet: CCHO low Pending Orders: None Pending Results/Labs:None Pending MD notification:None Latest Vital Signs: Temperature 98.1 , Pulse 77 , B/P 130 /70 , Respiratory Rate 28 , O2 SAT 89 , Non-Rebreather, O2 Flow Rate 15.0 . Vital Sign Comment: stable EKG Rhythm: Sinus Rhythm Rhythm change?: N MD Notified?: - MD Response: Latest Van Fall Score: 35 Fall Risk: Medium Risk Safety Measures: Call light Within Reach, Bed Alarm Zone 1, Side Rails Side Rails x2, Bed position Low and Locked. Fall Precautions: Yellow Socks Yellow Gown Door Sign Report given to CHARMAINE Givens.
[2020-07-26 08:00] VITALS: BP 143/76
[2020-07-26] MEDS: guaiFENesin 100mg/5ml Liq ud ORAL PRN ×4 (08:11→22:16)
[2020-07-26 08:16] LABS: HEMOGLOBIN 15.4 G/DL (14.2-18.0); MEAN CORPUSCULAR VOLUME 83 FL (80-99); PLATELET COUNT 171 K/UL (150-450); RED BLOOD COUNT 5.05 M/UL (4.70-6.10); WHITE BLOOD COUNT 16.1 K/UL (4.8-10.8)
--- NOTE | 2020-07-26 08:17 | NUR ---
NURSE NOTES: Patient seen in bed AAOx4, no complaints of pain and dry cough with no sputum. the patient is receiving supplemental oxygen via nonrebreather mask. Pharmacological intervention given for patients cough. The bed was placed in the lowest position, locked, side rails x2, bed alarm set to zone 1, all patient request were met at this time and call light within reach. Patient instructed to press call light for any needs.
[2020-07-26 08:18] LABS: NEUTROPHILS % (AUTO) 86.5 % (45.0-75.0)
[2020-07-26 08:19] LABS: BASOPHILS % (AUTO) 0.5 % (0.0-2.0); EOSINOPHILS % (AUTO) 0.2 % (0.0-3.0); MONOCYTES % (AUTO) 4.9 % (1.0-10.0)
[2020-07-26 08:44] LABS: ALANINE AMINOTRANSFERASE 35 U/L (12-78); ALKALINE PHOSPHATASE 120 U/L (46-116); ASPARTATE AMINO TRANSFERASE 39 U/L (15-37); BILIRUBIN,DIRECT 0.1 MG/DL (0.0-0.3); BILIRUBIN,TOTAL 0.4 MG/DL (0.2-1.0)
[2020-07-26 08:57] LABS: ALANINE AMINOTRANSFERASE 37 U/L (12-78); ALBUMIN 1.9 G/DL (3.4-5.0); ALBUMIN/GLOBULIN RATIO 0.4 (1.0-2.7); ALKALINE PHOSPHATASE 130 U/L (46-116); ANION GAP 9 mmol/L (5-15); ASPARTATE AMINO TRANSFERASE 39 U/L (15-37); BILIRUBIN,DIRECT 0.2 MG/DL (0.0-0.3); BILIRUBIN,TOTAL 0.5 MG/DL (0.2-1.0); BLOOD UREA NITROGEN 11 mg/dL (7-18); CALCIUM 7.7 MG/DL (8.5-10.1); CARBON DIOXIDE 29 MMOL/L (21-32); CHLORIDE 99 MMOL/L (98-107); CREATININE 0.8 MG/DL (0.55-1.30); POTASSIUM 3.1 MMOL/L (3.5-5.1); SODIUM 137 MMOL/L (136-145)
--- NOTE | 2020-07-26 09:10 | NUR ---
CASE MANAGEMENT:REVIEW 07/26/20 SI: COVID PNA 98.2 76 24 143/76 94% ON 15L NRB WBC+16.1 IS: IV REMDESIVIR Q24(11/12) IV DECADRON QD LOVENOX SQ QD : TELEMETRY STATUS DCP: FROM HOME
[2020-07-26] MEDS: Ascorbic Acid 500mg tab ORAL SCH ×2 (09:26→17:22)
[2020-07-26] MEDS: Enoxaparin 40mg Inj SUBQ SCH (09:28)
[2020-07-26] MEDS: Levemir Flexpen SUBQ SCH ×2 (09:29→21:00)
--- NOTE | 2020-07-26 09:43 | Infectious Diseases Prog Note ---
Assessment/Plan Assessment/Plan IMPRESSION: COVID-19 disease seems to be severe. Diabetes mellitus with hyperglycemia. Hypoxemic. Lymphocytopenia. Sinus tachycardia Leukocytosis RECOMMENDATION: Continue dexamethasone & remdesivir Subjective ROS Limited/Unobtainable: Yes Constitutional: Denies: fever Respiratory: Reports: shortness of breath Allergies: Coded Allergies: No Known Allergies (Unverified , 07/21/20) Objective Last 24 Hour Vital Signs Date Time Temp Pulse Resp B/P (MAP) Pulse Ox O2 Delivery O2 Flow Rate FiO2 07/26/20 08:00 98.2 76 24 143/76 (98) 94 07/26/20 04:00 77 07/26/20 04:00 98.1 70 28 130/70 (90) 89 07/26/20 00:00 97.9 67 28 141/73 (95) 93 07/25/20 21:00 Non-Rebreather 15.0 07/25/20 20:00 97.9 95 24 124/75 (91) 93 07/25/20 20:00 68 07/25/20 19:36 93 Non-Rebreather 15.0 100 07/25/20 16:00 89 07/25/20 16:00 97.6 75 22 124/76 (92) 92 07/25/20 12:00 85 07/25/20 12:00 97.9 81 22 129/74 (92) 90 07/25/20 09:58 92 Non-Rebreather 15.0 100 Height (Feet): 5 Height (Inches): 6.00 Weight (Pounds): 172 HEENT: mucous membranes moist Respiratory/Chest: other - oxygen by rebreathing mask Cardiovascular: normal rate Abdomen: soft, non tender Extremities: no edema Neurologic/Psychiatric: alert, responsive Laboratory Tests Test 07/25/20 16:32 07/25/20 21:41 07/26/20 05:42 07/26/20 06:44 POC Whole Blood Glucose Pending 242 MG/DL (74-106) H 120 MG/DL (74-106) H White Blood Count 16.1 K/UL (4.8-10.8) H Red Blood Count 5.05 M/UL (4.70-6.10) Hemoglobin 15.4 G/DL (14.2-18.0) Hematocrit 42.0 % (42.0-52.0) Mean Corpuscular Volume 83 FL (80-99) Mean Corpuscular Hemoglobin 30.4 PG (27.0-31.0) Mean Corpuscular Hemoglobin Concent 36.6 G/DL (32.0-36.0) H Red Cell Distribution Width 14.0 % (11.6-14.8) Platelet Count 171 K/UL (150-450) Mean Platelet Volume 6.7 FL (6.5-10.1) Neutrophils (%) (Auto) 86.5 % (45.0-75.0) H Lymphocytes (%) (Auto) 8.0 % (20.0-45.0) L Monocytes (%) (Auto) 4.9 % (1.0-10.0) Eosinophils (%) (Auto) 0.2 % (0.0-3.0) Basophils (%) (Auto) 0.5 % (0.0-2.0) Sodium Level 137 MMOL/L (136-145) Potassium Level 3.1 MMOL/L (3.5-5.1) L Chloride Level 99 MMOL/L (98-107) Carbon Dioxide Level 29 MMOL/L (21-32) Anion Gap 9 mmol/L (5-15) Blood Urea Nitrogen 11 mg/dL (7-18) Creatinine 0.8 MG/DL (0.55-1.30) Estimat Glomerular Filtration Rate > 60 mL/min (>60) Glucose Level 131 MG/DL (74-106) #H Calcium Level 7.7 MG/DL (8.5-10.1) L Total Bilirubin 0.4 MG/DL (0.2-1.0) Direct Bilirubin 0.1 MG/DL (0.0-0.3) Aspartate Amino Transf (AST/SGOT) 39 U/L (15-37) H Alanine Aminotransferase (ALT/SGPT) 35 U/L (12-78) Alkaline Phosphatase 120 U/L (46-116) H Total Protein 5.7 G/DL (6.4-8.2) L Albumin 2.0 G/DL (3.4-5.0) L Globulin 4.4 g/dL Albumin/Globulin Ratio 0.4 (1.0-2.7) L Current Medications Medications (Trade) Dose Ordered Sig/Dalia Route PRN Reason Start Time Stop Time Status Last Admin Dose Admin Acetaminophen (Tylenol) 500 mg Q6H PRN ORAL Mild Pain (Pain Scale 1-3) 07/21/20 08:15 08/20/20 08:14 07/23/20 04:58 Ascorbic Acid (Vitamin C) 500 mg TWICE A DAY ORAL 07/23/20 09:00 08/22/20 08:59 07/26/20 09:26 Dexamethasone Sodium Phosphate (Decadron 4mg/ml vial) 6 mg DAILY IVP 07/22/20 09:00 07/30/20 12:00 07/26/20 09:26 Dextrose (Dextrose 50%) 25 ml Q30M PRN IV Hypoglycemia 07/21/20 13:30 10/19/20 13:29 Dextrose (Dextrose 50%) 50 ml Q30M PRN IV Hypoglycemia 07/21/20 13:30 10/19/20 13:29 Enoxaparin Sodium (Lovenox) 40 mg DAILY SUBQ 07/22/20 09:00 10/20/20 08:59 07/26/20 09:28 Guaifenesin (Robitussin) 200 mg Q4H PRN ORAL For Cough 07/25/20 12:30 10/23/20 12:29 07/26/20 08:11 Insulin Aspart (NovoLOG) BEFORE MEALS AND HS SUBQ 07/21/20 16:30 10/19/20 16:29 07/25/20 21:45 Insulin Aspart (NovoLOG) 12 units TIWM SUBQ 07/26/20 12:00 10/19/20 16:59 Insulin Detemir (Levemir) 8 units EVERY 12 HOURS SUBQ 07/23/20 09:00 10/19/20 20:59 07/26/20 09:29 Lorazepam (Ativan) 1 mg Q6H PRN ORAL For Anxiety 07/22/20 14:30 07/29/20 14:29 07/24/20 11:23 Mirtazapine (Remeron) 15 mg BEDTIME ORAL 07/22/20 21:00 10/20/20 20:59 07/25/20 21:39 Remdesivir 100 mg/ Sodium Chloride 250 ml @ 250 mls/hr Q24H IV 07/24/20 16:00 07/27/20 16:59 07/25/20 15:04 Christian Caraballo MD Jul 26, 2020 09:43
[2020-07-26 12:00] VITALS: BP 140/81
--- NOTE | 2020-07-26 15:28 | Pulmonology Progress Note ---
Subjective ROS Limited/Unobtainable: Yes Interval Events: feels better; cough still bothers him Constitutional: Denies: fever HEENT: Repors: no symptoms Respiratory: Reports: no symptoms, dry cough Cardiovascular: Reports: no symptoms; Denies: chest pain, palpitations Gastrointestinal/Abdominal: Reports: no symptoms Allergies: Coded Allergies: No Known Allergies (Unverified , 07/21/20) All Systems: reviewed and negative except above Objective Last 24 Hour Vital Signs Date Time Temp Pulse Resp B/P (MAP) Pulse Ox O2 Delivery O2 Flow Rate FiO2 07/26/20 12:00 97.2 90 23 140/81 (100) 94 07/26/20 12:00 76 07/26/20 09:00 Non-Rebreather 15.0 07/26/20 08:00 88 07/26/20 08:00 98.2 76 24 143/76 (98) 94 07/26/20 04:00 77 07/26/20 04:00 98.1 70 28 130/70 (90) 89 07/26/20 00:00 97.9 67 28 141/73 (95) 93 07/25/20 21:00 Non-Rebreather 15.0 07/25/20 20:00 97.9 95 24 124/75 (91) 93 07/25/20 20:00 68 07/25/20 19:36 93 Non-Rebreather 15.0 100 07/25/20 16:00 89 07/25/20 16:00 97.6 75 22 124/76 (92) 92 Intake and Output 07/25/20 07/26/20 19:00 07:00 Intake Total 800 ml 1100 ml Output Total 1000 ml 2900 ml Balance -200 ml -1800 ml Intake Oral 800 ml 1100 ml Output Urine Total 1000 ml 2900 ml # Voids 6 # Bowel Movements 1 Objective 07/26/2020 pt subjectively feels better; on NRB 15L saturating 94% 07/24/2020 confused and non compliant with oxygen per RN; on Venturi mask 07/23/2020 currently saturating well on 12 L oxygen via Venturi mask General Appearance: no acute distress HEENT: normocephalic Respiratory: chest wall non-tender, crackles/rales Cardiovascular: normal peripheral pulses, normal rate Abdomen: normal bowel sounds Extremities: no cyanosis, no clubbing Laboratory Tests 07/25/20 16:32: POC Whole Blood Glucose [Pending] 07/25/20 21:41: POC Whole Blood Glucose 242H 07/26/20 05:42: POC Whole Blood Glucose 120H 07/26/20 06:44: White Blood Count 16.1H, Red Blood Count 5.05, Hemoglobin 15.4, Hematocrit 42.0, Mean Corpuscular Volume 83, Mean Corpuscular Hemoglobin 30.4, Mean Corpuscular Hemoglobin Concent 36.6H, Red Cell Distribution Width 14.0, Platelet Count 171, Mean Platelet Volume 6.7, Neutrophils (%) (Auto) 86.5H, Lymphocytes (%) (Auto) 8.0L, Monocytes (%) (Auto) 4.9, Eosinophils (%) (Auto) 0.2, Basophils (%) (Auto) 0.5, Sodium Level 137, Potassium Level 3.1L, Chloride Level 99, Carbon Dioxide Level 29, Anion Gap 9, Blood Urea Nitrogen 11, Creatinine 0.8, Estimat Glomerular Filtration Rate > 60, Glucose Level 131#H, Calcium Level 7.7L, Total Bilirubin 0.4, Direct Bilirubin 0.1, Aspartate Amino Transf (AST/SGOT) 39H, Alanine Aminotransferase (ALT/SGPT) 35, Alkaline Phosphatase 120H, Total Protein 5.7L, Albumin 2.0L, Globulin 4.4, Albumin/Globulin Ratio 0.4L Current Medications Medications (Trade) Dose Ordered Sig/Dalia Route PRN Reason Start Time Stop Time Status Last Admin Dose Admin Acetaminophen (Tylenol) 500 mg Q6H PRN ORAL Mild Pain (Pain Scale 1-3) 07/21/20 08:15 08/20/20 08:14 07/23/20 04:58 Ascorbic Acid (Vitamin C) 500 mg TWICE A DAY ORAL 07/23/20 09:00 08/22/20 08:59 07/26/20 09:26 Dexamethasone Sodium Phosphate (Decadron 4mg/ml vial) 6 mg DAILY IVP 07/22/20 09:00 07/30/20 12:00 07/26/20 09:26 Dextrose (Dextrose 50%) 25 ml Q30M PRN IV Hypoglycemia 07/21/20 13:30 10/19/20 13:29 Dextrose (Dextrose 50%) 50 ml Q30M PRN IV Hypoglycemia 07/21/20 13:30 10/19/20 13:29 Enoxaparin Sodium (Lovenox) 40 mg DAILY SUBQ 07/22/20 09:00 10/20/20 08:59 07/26/20 09:28 Guaifenesin (Robitussin) 200 mg Q4H PRN ORAL For Cough 07/25/20 12:30 10/23/20 12:29 07/26/20 12:42 Insulin Aspart (NovoLOG) BEFORE MEALS AND HS SUBQ 07/21/20 16:30 10/19/20 16:29 07/26/20 12:38 Insulin Aspart (NovoLOG) 12 units TIWM SUBQ 07/26/20 12:00 10/19/20 16:59 07/26/20 12:39 Insulin Detemir (Levemir) 8 units EVERY 12 HOURS SUBQ 07/23/20 09:00 10/19/20 20:59 07/26/20 09:29 Lorazepam (Ativan) 1 mg Q6H PRN ORAL For Anxiety 07/22/20 14:30 07/29/20 14:29 07/24/20 11:23 Mirtazapine (Remeron) 15 mg BEDTIME ORAL 07/22/20 21:00 10/20/20 20:59 07/25/20 21:39 Remdesivir 100 mg/ Sodium Chloride 250 ml @ 250 mls/hr Q24H IV 07/24/20 16:00 07/27/20 16:59 07/25/20 15:04 Assessment/Plan Assessment/Plan Assessment/Plan 1. COVID-19 pneumonia. - On Decadron - on remdesivir per ID specialist - Currently saturating at 94% on NRB 15L - CXR 07/24 Marked worsening of bilateral infiltrates 2. Elevated inflammatory markers. 3. Diabetes mellitus. -On glucose lowering agents 4. DVT prophylaxis - On Lovenox 5. hx of anxiety and confusion - management per Dr. Bridges We will follow carefully The care of this patient was discussed with my supervising physician Time spent for this encounter was approximately 31 minutes The patient was seen and examined at bedside and all new and available data was reviewed in the patients chart. I agree with the above findings, impression, and plan. (Patient was seen earlier today. Signature timestamp does not reflect patient encounter time) Zhao Umana MD Jul 26, 2020 15:28 Pradeep Monique MD Jul 26, 2020 17:22
[2020-07-26] MEDS: Maintenance Dose:Remdesivir 100mg/NS 230ml x 4 Doses IV SCH ×2 (15:33)
[2020-07-26 16:00] VITALS: BP 147/80
--- NOTE | 2020-07-26 19:15 | NUR ---
NURSE NOTES: Report received from Chon MONTANO. Patient is awake alert and oriented x4. German and Australian speaking able to make needs known. No SOB or distress. On Non-rebreather mask 15 LPM at 100% fio2. Call light and bedside table within reach. Bed at lowest position locked with side rails up. Bed alarm activated. Will continue with plan of care.
--- NOTE | 2020-07-26 19:32 | NUR ---
NURSE HAND-OFF REPORT: Important Events on Shift:[Nonrebreather 15L/min, remdesevir administration. ] Patient Status: [full code, aaox4] Diet: [[facility] diet] Pending Orders: [N/A] Pending Results/Labs:[N/A] Pending MD notification:[N/A] Latest Vital Signs: Temperature 97.3 , Pulse 77 , B/P 147 /80 , Respiratory Rate 24 , O2 SAT 91 , Non-Rebreather, O2 Flow Rate 15.0 . Vital Sign Comment: [] EKG Rhythm: Sinus Rhythm Rhythm change?: N MD Notified?: - MD Response: Latest Van Fall Score: 35 Fall Risk: Medium Risk Safety Measures: Call light Within Reach, Bed Alarm Zone 1, Side Rails Side Rails x2, Bed position Low and Locked. Fall Precautions: Yellow Socks Yellow Gown Door Sign Report given to [CHARMAINE Lam].
--- NOTE | 2020-07-26 19:36 | Psychiatric Progress Note ---
Psychiatry Progress Note Psychiatry Progress Note Subjective no new changes calm manageable Medications Current Medications Medications (Trade) Dose Ordered Sig/Dalia Route PRN Reason Start Time Stop Time Status Last Admin Dose Admin Acetaminophen (Tylenol) 500 mg Q6H PRN ORAL Mild Pain (Pain Scale 1-3) 07/21/20 08:15 08/20/20 08:14 07/23/20 04:58 Ascorbic Acid (Vitamin C) 500 mg TWICE A DAY ORAL 07/23/20 09:00 08/22/20 08:59 07/26/20 17:22 Dexamethasone Sodium Phosphate (Decadron 4mg/ml vial) 6 mg DAILY IVP 07/22/20 09:00 07/30/20 12:00 07/26/20 09:26 Dextrose (Dextrose 50%) 25 ml Q30M PRN IV Hypoglycemia 07/21/20 13:30 10/19/20 13:29 Dextrose (Dextrose 50%) 50 ml Q30M PRN IV Hypoglycemia 07/21/20 13:30 10/19/20 13:29 Enoxaparin Sodium (Lovenox) 40 mg DAILY SUBQ 07/22/20 09:00 10/20/20 08:59 07/26/20 09:28 Guaifenesin (Robitussin) 200 mg Q4H PRN ORAL For Cough 07/25/20 12:30 10/23/20 12:29 07/26/20 18:09 Insulin Aspart (NovoLOG) BEFORE MEALS AND HS SUBQ 07/21/20 16:30 10/19/20 16:29 07/26/20 17:29 Insulin Aspart (NovoLOG) 12 units TIWM SUBQ 07/26/20 12:00 10/19/20 16:59 07/26/20 17:29 Insulin Detemir (Levemir) 8 units EVERY 12 HOURS SUBQ 07/23/20 09:00 10/19/20 20:59 07/26/20 09:29 Lorazepam (Ativan) 1 mg Q6H PRN ORAL For Anxiety 07/22/20 14:30 07/29/20 14:29 07/24/20 11:23 Mirtazapine (Remeron) 15 mg BEDTIME ORAL 07/22/20 21:00 10/20/20 20:59 07/25/20 21:39 Remdesivir 100 mg/ Sodium Chloride 250 ml @ 250 mls/hr Q24H IV 07/24/20 16:00 07/27/20 16:59 07/26/20 15:33 Neurological/Psychiatric: Reports: anxiety, depressed, emotional problems Allergies: Coded Allergies: No Known Allergies (Unverified , 07/21/20) Objective Data Height (Feet): 5 Height (Inches): 6.00 Weight (Pounds): 172 General Appearance: alert, confused, agitated Additional Comments: alert, oriented to self, place, situation. Mood is anxious. Affect is blunted, congruent with mood. Thought process is concrete. Thought content, no suicidal or homicidal ideation. Cognition is intact. Insight and judgment fair. Assessment/Plan [place] I: ASSESSMENT: [place] I Anxiety disorder. [place] II Deferred. [place] III As above. [place] IV Low. [place] V 20 PLAN: 1. We will continue current medication. 2. Provide the patient with reality orientation and supportive therapy. Status: progressing Status Narrative ASSESSMENT: [place] I Anxiety disorder. [place] II Deferred. [place] III As above. [place] IV Low. [place] V 20 PLAN: 1. We will continue current medication. 2. Provide the patient with reality orientation and supportive therapy. Assessment/Plan: ASSESSMENT: [place] I Anxiety disorder. [place] II Deferred. Bell[place] III As above. [place] IV Low. [place] V 20 PLAN: 1. We will continue current medication. 2. Provide the patient with reality orientation and supportive therapy. Ron Bridges MD Jul 26, 2020 19:36
[2020-07-26 20:00] VITALS: BP 150/82
--- NOTE | 2020-07-26 20:53 | General Progress Note ---
Subjective ROS Limited/Unobtainable: Yes Allergies: Coded Allergies: No Known Allergies (Unverified , 07/21/20) Objective Last 24 Hour Vital Signs Date Time Temp Pulse Resp B/P (MAP) Pulse Ox O2 Delivery O2 Flow Rate FiO2 07/26/20 20:09 92 Non-Rebreather 15.0 100 07/26/20 16:00 97.3 81 24 147/80 (102) 91 07/26/20 16:00 77 07/26/20 12:00 97.2 90 23 140/81 (100) 94 07/26/20 12:00 76 07/26/20 09:00 Non-Rebreather 15.0 07/26/20 08:00 88 07/26/20 08:00 98.2 76 24 143/76 (98) 94 07/26/20 04:00 77 07/26/20 04:00 98.1 70 28 130/70 (90) 89 07/26/20 00:00 97.9 67 28 141/73 (95) 93 07/25/20 21:00 Non-Rebreather 15.0 Intake and Output 07/25/20 07/26/20 19:00 07:00 Intake Total 800 ml 1100 ml Output Total 1000 ml 2900 ml Balance -200 ml -1800 ml Intake Oral 800 ml 1100 ml Output Urine Total 1000 ml 2900 ml # Voids 6 # Bowel Movements 1 Laboratory Tests 07/25/20 21:41: POC Whole Blood Glucose 242H 07/26/20 05:42: POC Whole Blood Glucose 120H 07/26/20 06:44: White Blood Count 16.1H, Red Blood Count 5.05, Hemoglobin 15.4, Hematocrit 42.0, Mean Corpuscular Volume 83, Mean Corpuscular Hemoglobin 30.4, Mean Corpuscular Hemoglobin Concent 36.6H, Red Cell Distribution Width 14.0, Platelet Count 171, Mean Platelet Volume 6.7, Neutrophils (%) (Auto) 86.5H, Lymphocytes (%) (Auto) 8.0L, Monocytes (%) (Auto) 4.9, Eosinophils (%) (Auto) 0.2, Basophils (%) (Auto) 0.5, Sodium Level 137, Potassium Level 3.1L, Chloride Level 99, Carbon Dioxide Level 29, Anion Gap 9, Blood Urea Nitrogen 11, Creatinine 0.8, Estimat Glomerular Filtration Rate > 60, Glucose Level 131#H, Calcium Level 7.7L, Total Bilirubin 0.4, Direct Bilirubin 0.1, Aspartate Amino Transf (AST/SGOT) 39H, Alanine Aminotransferase (ALT/SGPT) 35, Alkaline Phosphatase 120H, Total Protein 5.7L, Albumin 2.0L, Globulin 4.4, Albumin/Globulin Ratio 0.4L Height (Feet): 5 Height (Inches): 6.00 Weight (Pounds): 172 Assessment/Plan Problem List: (1) Acute respiratory failure with hypoxia ICD Codes: J96.01 - Acute respiratory failure with hypoxia; J12.89 - Other viral pneumonia SNOMED: 52340286, 026667232 (2) Pneumonia due to COVID-19 virus ICD Codes: U07.1 - COVID-19; J12.89 - Other viral pneumonia SNOMED: 924279525977398748 (3) Hyperglycemia due to type 2 diabetes mellitus ICD Codes: E11.65 - Type 2 diabetes mellitus with hyperglycemia; J12.89 - Other viral pneumonia SNOMED: 400943808424518, 50694025 Status: progressing Assessment/Plan: covid positive pna tahcycardia respolved abx pe id prn supportive care niddm sugar is improving Milagro Miller MD Jul 26, 2020 20:53
[2020-07-27] VITALS (8 sets, daily range): BP systolic 115–144; BP diastolic 54–81
--- NOTE | 2020-07-27 03:22 | NUR ---
NURSE NOTES: Dr. Monique made aware that patient desaturated to 85% sustained on non rebreather mask 15 Liters 100% FI02. Orders given to start Bipap 16/5 at 100% fio2. Orders noted and carried out. ABGs ordered per protocol. RT made aware.
--- NOTE | 2020-07-27 03:26 | NUR ---
NURSE NOTES: Per RT patient unable to tolerate Bipap 16/5. Patient was continuously coughing. RT stated that patient tolerated 12/5 100% FIo2.
[2020-07-27] MEDS: guaiFENesin 100mg/5ml Liq ud ORAL PRN (03:29)
--- NOTE | 2020-07-27 06:32 | General Progress Note ---
Subjective ROS Limited/Unobtainable: Yes Allergies: Coded Allergies: No Known Allergies (Unverified , 07/21/20) Subjective events noted interval notes reviewed fasting glucose stable mealtime glucose elevated Item Value Date Time Bedside Blood Glucose 238 mg/dl H 07/26/20 2100 Bedside Blood Glucose 324 mg/dl H 07/26/20 1729 Bedside Blood Glucose 210 mg/dl H 07/26/20 1239 Bedside Blood Glucose 120 mg/dl 07/26/20 0630 Bedside Blood Glucose 120 mg/dl 07/26/20 0929 Objective Last 24 Hour Vital Signs Date Time Temp Pulse Resp B/P (MAP) Pulse Ox O2 Delivery O2 Flow Rate FiO2 07/27/20 04:00 83 07/27/20 04:00 98.2 79 22 138/68 (91) 96 07/27/20 02:25 84 48 95 100 07/27/20 00:00 98.2 70 22 144/78 (100) 92 07/27/20 00:00 70 07/26/20 21:00 Bi-pap 07/26/20 20:09 92 Non-Rebreather 15.0 100 07/26/20 20:00 73 07/26/20 20:00 98.1 83 22 150/82 (104) 96 07/26/20 16:00 97.3 81 24 147/80 (102) 91 07/26/20 16:00 77 07/26/20 12:00 97.2 90 23 140/81 (100) 94 07/26/20 12:00 76 07/26/20 09:00 Non-Rebreather 15.0 07/26/20 08:00 88 07/26/20 08:00 98.2 76 24 143/76 (98) 94 Intake and Output 07/26/20 07/27/20 19:00 07:00 Intake Total 1250 ml Output Total 2100 ml Balance -850 ml Intake Oral 1250 ml Output Urine Total 2100 ml # Bowel Movements 1 Laboratory Tests 07/26/20 06:44: White Blood Count 16.1H, Red Blood Count 5.05, Hemoglobin 15.4, Hematocrit 42.0, Mean Corpuscular Volume 83, Mean Corpuscular Hemoglobin 30.4, Mean Corpuscular Hemoglobin Concent 36.6H, Red Cell Distribution Width 14.0, Platelet Count 171, Mean Platelet Volume 6.7, Neutrophils (%) (Auto) 86.5H, Lymphocytes (%) (Auto) 8.0L, Monocytes (%) (Auto) 4.9, Eosinophils (%) (Auto) 0.2, Basophils (%) (Auto) 0.5, Sodium Level 137, Potassium Level 3.1L, Chloride Level 99, Carbon Dioxide Level 29, Anion Gap 9, Blood Urea Nitrogen 11, Creatinine 0.8, Estimat Glomerular Filtration Rate > 60, Glucose Level 131#H, Calcium Level 7.7L, Total Bilirubin 0.4, Direct Bilirubin 0.1, Aspartate Amino Transf (AST/SGOT) 39H, Alanine Aminotransferase (ALT/SGPT) 35, Alkaline Phosphatase 120H, Total Protein 5.7L, Albumin 2.0L, Globulin 4.4, Albumin/Globulin Ratio 0.4L 07/26/20 20:54: POC Whole Blood Glucose 238H 07/27/20 05:45: POC Whole Blood Glucose 179H Height (Feet): 5 Height (Inches): 6.00 Weight (Pounds): 172 Objective Current Medications Medications (Trade) Dose Ordered Sig/Dalia Route PRN Reason Start Time Stop Time Status Last Admin Dose Admin Acetaminophen (Tylenol) 500 mg Q6H PRN ORAL Mild Pain (Pain Scale 1-3) 07/21/20 08:15 08/20/20 08:14 07/23/20 04:58 Ascorbic Acid (Vitamin C) 500 mg TWICE A DAY ORAL 07/23/20 09:00 08/22/20 08:59 07/26/20 17:22 Dexamethasone Sodium Phosphate (Decadron 4mg/ml vial) 6 mg DAILY IVP 07/22/20 09:00 07/30/20 12:00 07/26/20 09:26 Dextrose (Dextrose 50%) 25 ml Q30M PRN IV Hypoglycemia 07/21/20 13:30 10/19/20 13:29 Dextrose (Dextrose 50%) 50 ml Q30M PRN IV Hypoglycemia 07/21/20 13:30 10/19/20 13:29 Enoxaparin Sodium (Lovenox) 40 mg DAILY SUBQ 07/22/20 09:00 10/20/20 08:59 07/26/20 09:28 Guaifenesin (Robitussin) 200 mg Q4H PRN ORAL For Cough 07/25/20 12:30 10/23/20 12:29 07/27/20 03:29 Insulin Aspart (NovoLOG) BEFORE MEALS AND HS SUBQ 07/21/20 16:30 10/19/20 16:29 07/26/20 21:00 Insulin Aspart (NovoLOG) 12 units TIWM SUBQ 07/26/20 12:00 10/19/20 16:59 07/26/20 17:29 Insulin Detemir (Levemir) 8 units EVERY 12 HOURS SUBQ 07/23/20 09:00 10/19/20 20:59 07/26/20 21:00 Lorazepam (Ativan) 1 mg Q6H PRN ORAL For Anxiety 07/22/20 14:30 07/29/20 14:29 07/24/20 11:23 Mirtazapine (Remeron) 15 mg BEDTIME ORAL 07/22/20 21:00 10/20/20 20:59 07/26/20 20:50 Remdesivir 100 mg/ Sodium Chloride 250 ml @ 250 mls/hr Q24H IV 07/24/20 16:00 07/27/20 16:59 07/26/20 15:33 Assessment/Plan Problem List: (1) Pneumonia due to COVID-19 virus ICD Codes: U07.1 - COVID-19; J12.89 - Other viral pneumonia SNOMED: 777649573625039357 (2) Hyperglycemia due to type 2 diabetes mellitus ICD Codes: E11.65 - Type 2 diabetes mellitus with hyperglycemia; J12.89 - Other viral pneumonia SNOMED: 996502506466442, 97545919 (3) Acute respiratory failure with hypoxia ICD Codes: J96.01 - Acute respiratory failure with hypoxia; J12.89 - Other viral pneumonia SNOMED: 43443128, 432669606 Status: progressing Assessment/Plan: continue Levemir 8 units bid increase Novolog to 14 units ac tid + sliding scale hypoglycemia protocol in order Sandor Briceño MD Jul 27, 2020 06:32
[2020-07-27] MEDS: NovoLOG Insulin Flexpen SUBQ SCH ×7 (06:47→21:22)
[2020-07-27 07:03] LABS: HEMATOCRIT 41.9 % (42.0-52.0); HEMOGLOBIN 14.8 G/DL (14.2-18.0); MEAN CORPUSCULAR VOLUME 85 FL (80-99); PLATELET COUNT 131 K/UL (150-450); RED BLOOD COUNT 4.92 M/UL (4.70-6.10); RED CELL DISTRIBUTION WIDTH 13.3 % (11.6-14.8); WHITE BLOOD COUNT 17.5 K/UL (4.8-10.8)
--- NOTE | 2020-07-27 07:31 | NUR ---
NURSE HAND-OFF REPORT: Important Events on Shift:Patient now on Bipap / due to low O2 sat mid 80s. Patient Status: Alert oriented x4 periods of anxiety Diet: CCHO low Pending Orders: [] Pending Results/Labs:[] Pending MD notification:[] Latest Vital Signs: Temperature 98.2 , Pulse 83 , B/P 138 /68 , Respiratory Rate 22 , O2 SAT 96 , Non-Rebreather, O2 Flow Rate 15.0 . Vital Sign Comment: [] EKG Rhythm: Sinus Rhythm Rhythm change?: N MD Notified?: - MD Response: Latest Van Fall Score: 35 Fall Risk: Medium Risk Safety Measures: Call light Within Reach, Bed Alarm Zone 1, Side Rails Side Rails x2, Bed position Low and Locked. Fall Precautions: Yellow Socks Yellow Gown Door Sign Report given to Joanna MONTANO.
[2020-07-27 07:35] LABS: ALANINE AMINOTRANSFERASE 28 U/L (12-78); ALBUMIN 1.8 G/DL (3.4-5.0); ALBUMIN/GLOBULIN RATIO 0.4 (1.0-2.7); ALKALINE PHOSPHATASE 130 U/L (46-116); ANION GAP 6 mmol/L (5-15); ASPARTATE AMINO TRANSFERASE 35 U/L (15-37); BILIRUBIN,DIRECT 0.2 MG/DL (0.0-0.3); BILIRUBIN,TOTAL 0.7 MG/DL (0.2-1.0); BLOOD UREA NITROGEN 8 mg/dL (7-18); CALCIUM 7.6 MG/DL (8.5-10.1); CARBON DIOXIDE 29 MMOL/L (21-32); CHLORIDE 98 MMOL/L (98-107); CREATININE 0.6 MG/DL (0.55-1.30); SODIUM 133 MMOL/L (136-145)
[2020-07-27 07:38] LABS: ALANINE AMINOTRANSFERASE 29 U/L (12-78); ALBUMIN 1.9 G/DL (3.4-5.0); ALKALINE PHOSPHATASE 134 U/L (46-116); ASPARTATE AMINO TRANSFERASE 37 U/L (15-37); BILIRUBIN,DIRECT 0.2 MG/DL (0.0-0.3); BILIRUBIN,TOTAL 0.7 MG/DL (0.2-1.0)
--- NOTE | 2020-07-27 07:40 | NUR ---
RESPIRATORY NOTE: PT RECEIVED STABLE ON BIPAP WITH CURRENT SETTINGS: 12/5, RR:14, 100%. ALARMS ARE ON AND AUDIBLE. FOAM TAPE IN PLACE UNDER MASK. NO WOUNDS VISIBLE AT THIS TIME. NO S/S OF RESPIRATORY DISTRESS NOTED AT THIS TIME. WILL CONTINUE TO MONITOR.
--- NOTE | 2020-07-27 07:52 | NUR ---
NURSE NOTES: Pt received from Carole MONTANO. Pt noted to be on continuous Biap at 12/5 100% FiO2. Contacted Dr. Miller to get order for transfer to [facility] as policy is that pt on continuous bipap must be on SDU. Pt breathing noted to be tachypnic although saturation is 97%. Bed low and locked, call light within reach.
--- NOTE | 2020-07-27 08:12 | NUR ---
CASE MANAGEMENT:REVIEW 07/27/20 SI: COVID PNA 98.2 76 24 143/76 92% ON 15L/100% NRB WBC+17.5 NA-133 K-3.0 IS: IV REMDESIVIR Q24(12/12) IV DECADRON QD LOVENOX SQ QD : TELEMETRY STATUS DCP: FROM HOME
[2020-07-27] MEDS: Ascorbic Acid 500mg tab ORAL SCH ×2 (08:41→17:16)
[2020-07-27] MEDS: Enoxaparin 40mg Inj SUBQ SCH (08:43)
[2020-07-27] MEDS: Levemir Flexpen SUBQ SCH ×2 (08:43→21:21)
--- NOTE | 2020-07-27 08:52 | NUR ---
NURSE NOTES: Contacted Dr. rothman Re plt trending down to 131. Per MD give lovenox no parameter
--- NOTE | 2020-07-27 11:00 | NUR ---
NURSE NOTES: Received pt ,a transfer from Telemetry per bed awake,alert oriented ,noted no resp distress on BIPAP 07/14, Fio2 100%,denies any c/o pain or discomfort,S-Tach on the monitor,voids per urinal call brizuela placed at bedside,HOB elevated,bed lock in lowest position,will continue with plans of care.Report given by accounting office manager ANI.
--- NOTE | 2020-07-27 11:20 | NUR ---
HAND-OFF: Report given to [Magaly MONTANO. Pt telel box removed, ensured vitals normal, pt stable but on bipap and tachypinc. Gave pt urinal as per his request. Hooked him up to new monitor. ].
[2020-07-27] MEDS: cefTRIAXone 1 GM in D5W 55 ML IVPB SCH (12:15)
--- NOTE | 2020-07-27 12:16 | Infectious Diseases Prog Note ---
Assessment/Plan Assessment/Plan IMPRESSION: COVID-19 disease seems to be severe. Diabetes mellitus with hyperglycemia. Hypoxemic. Lymphocytopenia. Sinus tachycardia Leukocytosis RECOMMENDATION: Continue dexamethasone & remdesivir Repeat CXR Start on Rocephin Subjective ROS Limited/Unobtainable: Yes Constitutional: Reports: other - transferred from telemetry to ICU Respiratory: Reports: shortness of breath Allergies: Coded Allergies: No Known Allergies (Unverified , 07/21/20) Objective Last 24 Hour Vital Signs Date Time Temp Pulse Resp B/P (MAP) Pulse Ox O2 Delivery O2 Flow Rate FiO2 07/27/20 08:53 Bi-pap 07/27/20 08:00 98.8 88 24 124/54 (77) 96 07/27/20 08:00 93 07/27/20 04:00 83 07/27/20 04:00 98.2 79 22 138/68 (91) 96 07/27/20 02:25 84 48 95 100 07/27/20 00:00 98.2 70 22 144/78 (100) 92 07/27/20 00:00 70 07/26/20 21:00 Bi-pap 07/26/20 20:09 92 Non-Rebreather 15.0 100 07/26/20 20:00 73 07/26/20 20:00 98.1 83 22 150/82 (104) 96 07/26/20 16:00 97.3 81 24 147/80 (102) 91 07/26/20 16:00 77 Height (Feet): 5 Height (Inches): 6.00 Weight (Pounds): 172 HEENT: mucous membranes moist Respiratory/Chest: other - oxygen by BIPAP Cardiovascular: normal rate Abdomen: soft, non tender Extremities: no edema Neurologic/Psychiatric: alert, oriented x 3, responsive Laboratory Tests Test 07/26/20 20:54 07/27/20 05:30 07/27/20 05:45 07/27/20 10:25 POC Whole Blood Glucose 238 MG/DL (74-106) H 179 MG/DL (74-106) H White Blood Count 17.5 K/UL (4.8-10.8) H Red Blood Count 4.92 M/UL (4.70-6.10) Hemoglobin 14.8 G/DL (14.2-18.0) Hematocrit 41.9 % (42.0-52.0) L Mean Corpuscular Volume 85 FL (80-99) Mean Corpuscular Hemoglobin 30.1 PG (27.0-31.0) Mean Corpuscular Hemoglobin Concent 35.4 G/DL (32.0-36.0) Red Cell Distribution Width 13.3 % (11.6-14.8) Platelet Count 131 K/UL (150-450) L Mean Platelet Volume 6.2 FL (6.5-10.1) L Neutrophils (%) (Auto) % (45.0-75.0) Lymphocytes (%) (Auto) % (20.0-45.0) Monocytes (%) (Auto) % (1.0-10.0) Eosinophils (%) (Auto) % (0.0-3.0) Basophils (%) (Auto) % (0.0-2.0) Differential Total Cells Counted 100 Neutrophils % (Manual) 90 % (45-75) H Lymphocytes % (Manual) 6 % (20-45) L Monocytes % (Manual) 4 % (1-10) Eosinophils % (Manual) 0 % (0-3) Basophils % (Manual) 0 % (0-2) Band Neutrophils 0 % (0-8) Platelet Estimate Decreased L Platelet Morphology Normal Red Blood Cell Morphology Normal Sodium Level 133 MMOL/L (136-145) L Potassium Level 3.0 MMOL/L (3.5-5.1) L Chloride Level 98 MMOL/L (98-107) Carbon Dioxide Level 29 MMOL/L (21-32) Anion Gap 6 mmol/L (5-15) Blood Urea Nitrogen 8 mg/dL (7-18) Creatinine 0.6 MG/DL (0.55-1.30) Estimat Glomerular Filtration Rate > 60 mL/min (>60) Glucose Level 118 MG/DL (74-106) H Calcium Level 7.6 MG/DL (8.5-10.1) L Total Bilirubin 0.7 MG/DL (0.2-1.0) Direct Bilirubin 0.2 MG/DL (0.0-0.3) Aspartate Amino Transf (AST/SGOT) 37 U/L (15-37) Alanine Aminotransferase (ALT/SGPT) 29 U/L (12-78) Alkaline Phosphatase 134 U/L (46-116) H Total Protein 5.6 G/DL (6.4-8.2) L Albumin 1.9 G/DL (3.4-5.0) L Globulin 4.3 g/dL Albumin/Globulin Ratio 0.4 (1.0-2.7) L Arterial Blood pH 7.500 (7.350-7.450) Arterial Blood Partial Pressure CO2 35.8 mmHg (35.0-45.0) Arterial Blood Partial Pressure O2 68.0 mmHg (75.0-100.0) L Arterial Blood HCO3 27.3 mmol/L (22.0-26.0) H Arterial Blood Oxygen Saturation 93.8 % (95-100) L Arterial Blood Base Excess 4.3 (-2-2) H Francisco Test Positive Current Medications Medications (Trade) Dose Ordered Sig/Dalia Route PRN Reason Start Time Stop Time Status Last Admin Dose Admin Acetaminophen (Tylenol) 500 mg Q6H PRN ORAL Mild Pain (Pain Scale 1-3) 07/21/20 08:15 08/20/20 08:14 07/23/20 04:58 Ascorbic Acid (Vitamin C) 500 mg TWICE A DAY ORAL 07/23/20 09:00 08/22/20 08:59 07/27/20 08:41 Dexamethasone Sodium Phosphate (Decadron 4mg/ml vial) 6 mg DAILY IVP 07/22/20 09:00 07/30/20 12:00 07/27/20 08:41 Dextrose (Dextrose 50%) 25 ml Q30M PRN IV Hypoglycemia 07/21/20 13:30 10/19/20 13:29 Dextrose (Dextrose 50%) 50 ml Q30M PRN IV Hypoglycemia 07/21/20 13:30 10/19/20 13:29 Enoxaparin Sodium (Lovenox) 40 mg DAILY SUBQ 07/22/20 09:00 10/20/20 08:59 07/27/20 08:43 Guaifenesin (Robitussin) 200 mg Q4H PRN ORAL For Cough 07/25/20 12:30 10/23/20 12:29 07/27/20 03:29 Insulin Aspart (NovoLOG) BEFORE MEALS AND HS SUBQ 07/21/20 16:30 10/19/20 16:29 07/27/20 06:47 Insulin Aspart (NovoLOG) 14 units TIWM SUBQ 07/27/20 07:00 10/19/20 16:59 07/27/20 06:50 Insulin Detemir (Levemir) 8 units EVERY 12 HOURS SUBQ 07/23/20 09:00 10/19/20 20:59 07/27/20 08:43 Lorazepam (Ativan) 1 mg Q6H PRN ORAL For Anxiety 07/22/20 14:30 07/29/20 14:29 07/24/20 11:23 Mirtazapine (Remeron) 15 mg BEDTIME ORAL 07/22/20 21:00 10/20/20 20:59 07/26/20 20:50 Remdesivir 100 mg/ Sodium Chloride 250 ml @ 250 mls/hr Q24H IV 07/24/20 16:00 07/27/20 16:59 07/26/20 15:33 Christian Caraballo MD Jul 27, 2020 12:16
--- NOTE | 2020-07-27 14:15 | NUR ---
TRANSFER TO FLOOR: Patient transferred to SDU , per bed awake,alert oriented in no resp distress. Report given to Vanessa Zhao RN. Belongings and medications given to receiving RN.Pt with $1,052.00 at bedside,money counted with receiving RN infront of the pt.
--- NOTE | 2020-07-27 14:20 | NUR ---
NURSE NOTES: Received patient from ICU, report given by Magaly MONTANO. Transferred to bed and hooked to bipap by respiratory therapist, settings at 12/5, FiO2 100%. Connected to bipap with settings at 12/5 and FiO2 100%, not in acute distress. A and O x 4. IV line intact. Belongings accounted for. HOB elevated. Bed locked in low position. Call light within reach. Will continue plan of care.
--- NOTE | 2020-07-27 14:30 | NUR ---
NURSE NOTES: VS taken and recorded as 110/76, 104 [place], 95% O2 sat, 98.1F.
--- NOTE | 2020-07-27 15:26 | NUR ---
NURSE NOTES: Potassium at 3, Dr Miller made aware, left message, awaiting response.
[2020-07-27] MEDS: Maintenance Dose:Remdesivir 100mg/NS 230ml x 4 Doses IV SCH ×2 (16:54)
--- NOTE | 2020-07-27 17:10 | Diagnostic Imaging Report ---
Indication: Shortness of breath Technique: One view of the chest Comparison: 07/24/2020 Findings: Allowing for differences in exposure technique, stable or slightly worse bilateral diffuse and extensive infiltrates. The heart size is normal. Impression: Stable or slightly worse extensive bilateral diffuse infiltrates
--- NOTE | 2020-07-27 18:10 | NUR ---
NURSE NOTES: Patient started coughing while eating dinner, O2 saturation dropped to low 40's. Rapid response team called and attended to patient. O2 sat started to increase and reached 93%, patient alert and verbalized he felt better. NPO orders obtained from Dr Miller. Message also left for Dr Monique, awaiting callback. Patient instructed on NPO, verbalized understanding.
--- NOTE | 2020-07-27 18:15 | NUR ---
RESPIRATORY NOTE: PT VOMITED WHILE WEARING BIPAP. VENT CHECK DONE. VS WNL.
--- NOTE | 2020-07-27 19:23 | NUR ---
NURSE HAND-OFF REPORT: Important Events on Shift: aspirated and desaturated during dinner, [employer] called and attended to patient. Patient now stable and O2 at 93. Patient Status: alert Diet: npo except meds Pending Orders: Pending Results/Labs: Pending MD notification: Latest Vital Signs: Temperature 97.7 , Pulse 105 , B/P 115 /71 , Respiratory Rate 38 , O2 SAT 93 , Non-Rebreather, O2 Flow Rate 15.0 . Vital Sign Comment: EKG Rhythm: Sinus Rhythm Rhythm change?: N MD Notified?: - MD Response: Latest Van Fall Score: 35 Fall Risk: Medium Risk Safety Measures: Call light Within Reach, Bed Alarm Zone 1, Side Rails Side Rails x2, Bed position Low and Locked. Fall Precautions: Yellow Socks Yellow Gown Door Sign Report given to Brian MONTANO.
--- NOTE | 2020-07-27 20:08 | NUR ---
NURSE NOTES: Report received from CHARMAINE Mendez. Observed pt lying in the bed, able to make needs known. Previous HOME HEALTH CARE WORKER noted. SR on quality assurance monitor body. On Bipap 07/14, 100%, saturating between 90-94 at this time. NPO noted. IV on L W 22G, asymptomatic, SL. Bed in the lowest position. Side rails up x3. Call light within reach. Will continue to monitor.
--- NOTE | 2020-07-27 21:29 | General Progress Note ---
Subjective ROS Limited/Unobtainable: Yes Allergies: Coded Allergies: No Known Allergies (Unverified , 07/21/20) Objective Last 24 Hour Vital Signs Date Time Temp Pulse Resp B/P (MAP) Pulse Ox O2 Delivery O2 Flow Rate FiO2 07/27/20 19:15 92 Bi-Pap 100 07/27/20 18:48 105 38 93 100 07/27/20 18:45 43 07/27/20 16:00 94 07/27/20 16:00 97.7 118 20 115/71 (86) 100 07/27/20 14:30 102 36 96 100 07/27/20 13:00 98.4 101 30 135/78 (97) 98 07/27/20 12:00 114 07/27/20 12:00 98.4 121 24 134/70 (91) 100 07/27/20 11:20 103 30 140/81 (100) 98 07/27/20 11:00 98 58 98 100 07/27/20 08:53 Bi-pap 07/27/20 08:00 98.8 88 24 124/54 (77) 96 07/27/20 08:00 93 07/27/20 07:40 94 Bi-Pap 100 07/27/20 07:40 91 42 94 100 07/27/20 04:00 83 07/27/20 04:00 98.2 79 22 138/68 (91) 96 07/27/20 02:25 84 48 95 100 07/27/20 00:00 98.2 70 22 144/78 (100) 92 07/27/20 00:00 70 Intake and Output 07/26/20 07/27/20 19:00 07:00 Intake Total 1250 ml 100 ml Output Total 2100 ml Balance -850 ml 100 ml Intake Oral 1250 ml 100 ml Output Urine Total 2100 ml # Bowel Movements 3 Laboratory Tests 07/27/20 05:30: White Blood Count 17.5H, Red Blood Count 4.92, Hemoglobin 14.8, Hematocrit 41.9L , Mean Corpuscular Volume 85, Mean Corpuscular Hemoglobin 30.1, Mean Corpuscular Hemoglobin Concent 35.4, Red Cell Distribution Width 13.3, Platelet Count 131L, Mean Platelet Volume 6.2L, Neutrophils (%) (Auto) , Lymphocytes (%) (Auto) , M onocytes (%) (Auto) , Eosinophils (%) (Auto) , Basophils (%) (Auto) , Differential Total Cells Counted 100, Neutrophils % (Manual) 90H, Lymphocytes % (Manual) 6L, Monocytes % (Manual) 4, Eosinophils % (Manual) 0, Basophils % (Manual) 0, Band Neutrophils 0, Platelet Estimate DecreasedL, Platelet Morphology Normal, Red Blood Cell Morphology Normal, Sodium Level 133L, Potassium Level 3.0L, Chloride Level 98, Carbon Dioxide Level 29, Anion Gap 6, Blood Urea Nitrogen 8, Creatinine 0.6, Estimat Glomerular Filtration Rate > 60, Glucose Level 118H, Calcium Level 7.6L, Total Bilirubin 0.7, Direct Bilirubin 0.2, Aspartate Amino Transf (AST/SGOT) 37, Alanine Aminotransferase (ALT/SGPT) 29, Alkaline Phosphatase 134H, Total Protein 5.6L, Albumin 1.9L, Globulin 4.3, Albumin/Globulin Ratio 0.4L 07/27/20 05:45: POC Whole Blood Glucose 179H 07/27/20 10:25: Arterial Blood pH 7.500H, Arterial Blood Partial Pressure CO2 35.8, Arterial Blood Partial Pressure O2 68.0L, Arterial Blood HCO3 27.3H, Arterial Blood Oxygen Saturation 93.8L, Arterial Blood Base Excess 4.3H, Francisco Test Positive 07/27/20 11:58: POC Whole Blood Glucose [Pending] 07/27/20 16:59: POC Whole Blood Glucose [Pending] 07/27/20 21:09: POC Whole Blood Glucose 217H Height (Feet): 5 Height (Inches): 6.00 Weight (Pounds): 172 Assessment/Plan Problem List: (1) Acute respiratory failure with hypoxia ICD Codes: J96.01 - Acute respiratory failure with hypoxia; J12.89 - Other vi ral pneumonia SNOMED: 07020476, 988383729 (2) Pneumonia due to COVID-19 virus ICD Codes: U07.1 - COVID-19; J12. - Other viral pneumonia SNOMED: [id number] (3) Hyperglycemia due to type 2 diabetes mellitus ICD Codes: E11.65 - Type 2 diabetes mellitus with hyperglycemia; J12.89 - Other viral pneumonia SNOMED: 025035971059203, 41093187 Status: progressing Assessment/Plan: covid positive pna prn supportive care niddm reviewed chart and labs Milagro Miller MD Jul 27, 2020 21:29
--- NOTE | 2020-07-27 21:48 | NUR ---
NURSE NOTES: Levimir half does given per pt NPO status. Noted pt desaturating without Bipap. On bipap, saturating at 95%. Will continue to monitor.
--- NOTE | 2020-07-27 23:10 | Psychiatric Progress Note ---
Psychiatry Progress Note Psychiatry Progress Note Subjective no new changes calm manageable Medications Current Medications Medications (Trade) Dose Ordered Sig/Dalia Route PRN Reason Start Time Stop Time Status Last Admin Dose Admin Acetaminophen (Tylenol) 500 mg Q6H PRN ORAL Mild Pain (Pain Scale 1-3) 07/21/20 08:15 08/20/20 08:14 07/23/20 04:58 Ascorbic Acid (Vitamin C) 500 mg TWICE A DAY ORAL 07/23/20 09:00 08/22/20 08:59 07/27/20 17:16 Ceftriaxone Sodium 1 gm/ Dextrose 55 ml @ 110 mls/hr Q24H IVPB 07/27/20 12:15 08/03/20 12:14 07/27/20 12:15 Dexamethasone Sodium Phosphate (Decadron 4mg/ml vial) 6 mg DAILY IVP 07/22/20 09:00 07/30/20 12:00 07/27/20 08:41 Dextrose (Dextrose 50%) 25 ml Q30M PRN IV Hypoglycemia 07/21/20 13:30 10/19/20 13:29 Dextrose (Dextrose 50%) 50 ml Q30M PRN IV Hypoglycemia 07/21/20 13:30 10/19/20 13:29 Enoxaparin Sodium (Lovenox) 40 mg DAILY SUBQ 07/22/20 09:00 10/20/20 08:59 07/27/20 08:43 Guaifenesin (Robitussin) 200 mg Q4H PRN ORAL For Cough 07/25/20 12:30 10/23/20 12:29 07/27/20 03:29 Insulin Aspart (NovoLOG) BEFORE MEALS AND HS SUBQ 07/21/20 16:30 10/19/20 16:29 07/27/20 21:22 Insulin Aspart (NovoLOG) 14 units TIWM SUBQ 07/27/20 07:00 10/19/20 16:59 07/27/20 17:13 Insulin Detemir (Levemir) 8 units EVERY 12 HOURS SUBQ 07/23/20 09:00 10/19/20 20:59 07/27/20 21:21 Lorazepam (Ativan) 1 mg Q6H PRN ORAL For Anxiety 07/22/20 14:30 07/29/20 14:29 07/24/20 11:23 Mirtazapine (Remeron) 15 mg BEDTIME ORAL 07/22/20 21:00 10/20/20 20:59 07/26/20 20:50 Neurological/Psychiatric: Reports: anxiety, depressed, emotional problems Allergies: Coded Allergies: No Known Allergies (Unverified , 07/21/20) Objective Data Height (Feet): 5 Height (Inches): 6.00 Weight (Pounds): 172 General Appearance: alert, confused, agitated Additional Comments: alert, oriented to self, place, situation. Mood is anxious. Affect is blunted, congruent with mood. Thought process is concrete. Thought content, no suicidal or homicidal ideation. Cognition is intact. Insight and judgment fair. Assessment/Plan [place] I: ASSESSMENT: [place] I Anxiety disorder. [place] II Deferred. [place] III As above. [place] IV Low. [place] V 20 PLAN: 1. We will continue current medication. 2. Provide the patient with reality orientation and supportive therapy. Status: progressing Status Narrative ASSESSMENT: [place] I Anxiety disorder. [place] II Deferred. [place] III As above. [place] IV Low. [place] V 20 PLAN: 1. We will continue current medication. 2. Provide the patient with reality orientation and supportive therapy. Assessment/Plan: ASSESSMENT: [place] I Anxiety disorder. [place] II Deferred. [place] III As above. [place] IV Low. [place] V 20 PLAN: 1. We will continue current medication. 2. Provide the patient with reality orientation and supportive therapy. Ron Bridges MD Jul 27, 2020 23:10
[2020-07-28] VITALS: BP 131/76
--- NOTE | 2020-07-28 01:50 | NUR ---
NURSE NOTES: pt sleeping in the bed. On bipap, 07/14, 100%, saturating at 92% at this time. will continue to monitor.
--- NOTE | 2020-07-28 03:44 | NUR ---
NURSE NOTES: pt becomes anxious and SOB noted, desaturating to 80s but recovers back to 90s in few minutes, but tachypneic. Will continue to monitor.
[2020-07-28 04:00] VITALS: BP 133/69
[2020-07-28 05:19] LABS: HEMATOCRIT 42.3 % (42.0-52.0); HEMOGLOBIN 15.4 G/DL (14.2-18.0); MEAN CORPUSCULAR VOLUME 83 FL (80-99); PLATELET COUNT 141 K/UL (150-450); RED BLOOD COUNT 5.11 M/UL (4.70-6.10); RED CELL DISTRIBUTION WIDTH 14.7 % (11.6-14.8); WHITE BLOOD COUNT 20.9 K/UL (4.8-10.8)
[2020-07-28 05:21] LABS: ALANINE AMINOTRANSFERASE 29 U/L (12-78); ALBUMIN 1.8 G/DL (3.4-5.0); ALBUMIN/GLOBULIN RATIO 0.4 (1.0-2.7); ALKALINE PHOSPHATASE 126 U/L (46-116); ANION GAP 4 mmol/L (5-15); ASPARTATE AMINO TRANSFERASE 30 U/L (15-37); BILIRUBIN,TOTAL 0.7 MG/DL (0.2-1.0); BLOOD UREA NITROGEN 16 mg/dL (7-18); CALCIUM 7.8 MG/DL (8.5-10.1); CARBON DIOXIDE 30 MMOL/L (21-32); CHLORIDE 102 MMOL/L (98-107); CHOLESTEROL 92 MG/DL (< 200); CREATININE 0.7 MG/DL (0.55-1.30); GAMMA GLUTAMYL TRANSPEPTIDASE 31 U/L (5-85); HDL CHOLESTEROL 17 MG/DL (40-60); PHOSPHORUS 2.4 MG/DL (2.5-4.9); POTASSIUM 4.1 MMOL/L (3.5-5.1); SODIUM 136 MMOL/L (136-145); TRIGLYCERIDES 70 MG/DL (30-150)
[2020-07-28] MEDS: NovoLOG Insulin Flexpen SUBQ SCH ×7 (06:22→21:08)
--- NOTE | 2020-07-28 07:00 | NUR ---
NURSE NOTES: Received patient from Brian MONTANO. patient is asleep in bed. AO x4, sinus rhythm on the monitor. currently NPO. on BiPap 12/5 saturation 100%. bed to lowest position and locked. call light within easy reach. will continue plan of care.
--- NOTE | 2020-07-28 07:12 | NUR ---
NURSE HAND-OFF REPORT: Important Events on Shift: APPLICATIONS SYSTEMS ENGINEER previous shift regarding aspiration. Patient Status: On bipap 07/14, 100%, tachypneic. Diet: NPO Pending Orders: [] Pending Results/Labs:[] Pending MD notification:[] Latest Vital Signs: Temperature 98.6 , Pulse 112 , B/P 133 /69 , Respiratory Rate 40 , O2 SAT 94 , Non-Rebreather, O2 Flow Rate 15.0 . Vital Sign Comment: [] EKG Rhythm: Sinus Rhythm Rhythm change?: N MD Notified?: - MD Response: Latest Van Fall Score: 35 Fall Risk: Medium Risk Safety Measures: Call light Within Reach, Bed Alarm Zone 1, Side Rails Side Rails x2, Bed position Low and Locked. Fall Precautions: Yellow Socks Yellow Gown Door Sign Report given to CHARMAINE Olivas.
[2020-07-28 08:00] VITALS: BP 117/73
[2020-07-28] MEDS: Ascorbic Acid 500mg tab ORAL SCH ×2 (09:00→17:39)
[2020-07-28] MEDS: Enoxaparin 40mg Inj SUBQ SCH (09:12)
[2020-07-28] MEDS: Acetaminophen 500mg (ES) tab ORAL PRN (09:14)
[2020-07-28] MEDS: LORazepam 1mg tab ORAL PRN (09:26)
[2020-07-28] MEDS: Levemir Flexpen SUBQ SCH ×2 (09:34→21:08)
--- NOTE | 2020-07-28 10:21 | General Progress Note ---
Subjective ROS Limited/Unobtainable: Yes Allergies: Coded Allergies: No Known Allergies (Unverified , 07/21/20) Subjective events noted interval notes reviewed glucose values are stable NPO Item Value Date Time Bedside Blood Glucose 179 mg/dl H 07/28/20 0934 Bedside Blood Glucose 153 mg/dl H 07/28/20 0630 Bedside Blood Glucose 219 mg/dl H 07/27/20 2122 Bedside Blood Glucose 260 mg/dl H 07/27/20 1713 Bedside Blood Glucose 227 mg/dl H 07/27/20 1218 Bedside Blood Glucose 154 mg/dl H 07/27/20 0843 Objective Last 24 Hour Vital Signs Date Time Temp Pulse Resp B/P (MAP) Pulse Ox O2 Delivery O2 Flow Rate FiO2 07/28/20 09:56 102 45 117/73 92 07/28/20 09:44 99.1 07/28/20 09:26 102 45 117/73 92 07/28/20 08:00 99.1 102 45 117/73 (88) 94 07/28/20 04:00 Bi-pap 07/28/20 04:00 98.6 112 40 133/69 (90) 94 07/28/20 04:00 98 07/28/20 03:02 105 35 93 100 07/28/20 00:00 98.4 89 30 131/76 (94) 92 07/28/20 00:00 Bi-pap 07/28/20 00:00 100 07/28/20 00:00 90 07/27/20 23:27 105 38 97 100 07/27/20 20:00 100 07/27/20 20:00 98 07/27/20 20:00 98.2 97 20 117/74 (88) 93 07/27/20 20:00 Bi-pap 07/27/20 19:35 111 35 96 100 07/27/20 19:15 92 Bi-Pap 100 07/27/20 18:48 105 38 93 100 07/27/20 18:45 43 07/27/20 16:00 94 07/27/20 16:00 97.7 118 20 115/71 (86) 100 07/27/20 14:30 102 36 96 100 07/27/20 13:00 98.4 101 30 135/78 (97) 98 07/27/20 12:00 114 07/27/20 12:00 98.4 121 24 134/70 (91) 100 07/27/20 11:20 103 30 140/81 (100) 98 07/27/20 11:00 98 58 98 100 Intake and Output 07/27/20 07/28/20 18:59 06:59 Intake Total 600 ml Output Total 1500 ml 900 ml Balance -900 ml -900 ml Intake Oral 600 ml Output Urine Total 1500 ml 900 ml Laboratory Tests 07/27/20 10:25: Arterial Blood pH 7.500H, Arterial Blood Partial Pressure CO2 35.8, Arterial Bl ood Partial Pressure O2 68.0L, Arterial Blood HCO3 27.3H, Arterial Blood Oxygen Saturation 93.8L, Arterial Blood Base Excess 4.3H, [place] Test Positive 07/27/20 11:58: POC Whole Blood Glucose [Pending] 07/27/20 16:59: POC Whole Blood Glucose [Pending] 07/27/20 21:09: POC Whole Blood Glucose 217H 07/28/20 04:20: White Blood Count 20.9H, Red Blood Count 5.11, Hemoglobin 15.4, Hematocrit 42.3, Mean Corpuscular Volume 83, Mean Corpuscular Hemoglobin 30.1, Mean Corpuscular Hemoglobin Concent 36.4H, Red Cell Distribution Width 14.7, Platelet Count 141L, Mean Platelet Volume 7.3, Neutrophils (%) (Auto) , Lymphocytes (%) (Auto) , Monocytes (%) (Auto) , Eosinophils (%) (Auto) , Basophils (%) (Auto) , Differential Total Cells Counted 100, Neutrophils % (Manual) 89H, Lymphocytes % (Manual) 9L, Monocytes % (Manual) 2, Eosinophils % (Manual) 0, Basophils % (Manual) 0, Band Neutrophils 0, Platelet Estimate DecreasedL, Platelet Morphology Normal, Anisocytosis 1+, Sodium Level 136, Potassium Level 4.1, Chloride Level 102, Carbon Dioxide Level 30, Anion Gap 4L, Blood Urea Nitrogen 16, Creatinine 0.7, Estimat Glomerular Filtration Rate > 60, Glucose Level 160H, Uric Acid 3.7, Calcium Level 7.8L, Phosphorus Level 2.4L, Magnesium Level 2.1, Total Bilirubin 0.7, Gamma Glutamyl Transpeptidase 31, Aspartate Amino Transf (AST/SGOT) 30, Alanine Aminotransferase (ALT/SGPT) 29, Alkaline Phosphatase 126H , C-Reactive Protein, Quantitative 27.2H, Pro-B-Type Natriuretic Peptide [Pending], Total Protein 6.2L, Albumin 1.8L, Globulin 4.4, Albumin/Globulin Ratio 0.4L, Triglycerides Level 70, Cholesterol Level 92, LDL Cholesterol 61, HDL Cholesterol 17L, Cholesterol/HDL Ratio 5.4H, Thyroid Stimulating Hormone ( TSH) 0.919 07/28/20 06:19: POC Whole Blood Glucose 156H 07/28/20 09:18: POC Whole Blood Glucose 179H Height (Feet): 5 Height (Inches): 6.00 Weight (Pounds): 172 Objective Current Medications Medications (Trade) Dose Ordered Sig/Dalia Route PRN Reason Start Time Stop Time Status Last Admin Dose Admin Acetaminophen (Tylenol) 500 mg Q6H PRN ORAL Mild Pain (Pain Scale 1-3) 07/21/20 08:15 08/20/20 08:14 07/28/20 09:14 Ascorbic Acid (Vitamin C) 500 mg TWICE A DAY ORAL 07/23/20 09:00 08/22/20 08:59 07/27/20 17:16 Ceftriaxone Sodium 1 gm/ Dextrose 55 ml @ 110 mls/hr Q24H IVPB 07/27/20 12:15 08/03/20 12:14 07/27/20 12:15 Dexamethasone Sodium Phosphate (Decadron 4mg/ml vial) 6 mg DAILY IVP 07/22/20 09:00 07/30/20 12:00 07/28/20 09:10 Dextrose (Dextrose 50%) 25 ml Q30M PRN IV Hypoglycemia 07/21/20 13:30 10/19/20 13:29 Dextrose (Dextrose 50%) 50 ml Q30M PRN IV Hypoglycemia 07/21/20 13:30 10/19/20 13:29 Enoxaparin Sodium (Lovenox) 40 mg DAILY SUBQ 07/22/20 09:00 10/20/20 08:59 07/28/20 09:12 Guaifenesin (Robitussin) 200 mg Q4H PRN ORAL For Cough 07/25/20 12:30 10/23/20 12:29 07/27/20 03:29 Insulin Aspart (NovoLOG) BEFORE MEALS AND HS SUBQ 07/21/20 16:30 10/19/20 16:29 07/27/20 21:22 Insulin Aspart (NovoLOG) 14 units TIWM SUBQ 07/27/20 07:00 10/19/20 16:59 07/27/20 17:13 Insulin Detemir (Levemir) 8 units EVERY 12 HOURS SUBQ 07/23/20 09:00 10/19/20 20:59 07/28/20 09:34 Lorazepam (Ativan) 1 mg Q6H PRN ORAL For Anxiety 07/22/20 14:30 07/29/20 14:29 07/28/20 09:26 Mirtazapine (Remeron) 15 mg BEDTIME ORAL 07/22/20 21:00 10/20/20 20:59 07/26/20 20:50 Assessment/Plan Problem List: (1) Pneumonia due to COVID-19 virus ICD Codes: U07.1 - COVID-19; J12.89 - Other viral pneumonia SNOMED: 299853761005887146 (2) Hyperglycemia due to type 2 diabetes mellitus ICD Codes: E11.65 - Type 2 diabetes mellitus with hyperglycemia; J12.89 - Other viral pneumonia SNOMED: 545523381476795, 08942716 (3) Acute respiratory failure with hypoxia ICD Codes: J96.01 - Acute respiratory failure with hypoxia; J12.89 - Other viral pneumonia SNOMED: 60211196, 846797284 Status: progressing Assessment/Plan: continue Levemir 8 units bid increase Novolog to 14 units ac tid + sliding scale hypoglycemia protocol in order Sandor Briceño MD Jul 28, 2020 10:21
--- NOTE | 2020-07-28 11:25 | NUR ---
NURSE NOTES: patient constantly presses button for call light. patient states he is hungry however NPO except meds per doctor order. educated patient about importance of NPO while on continuous bipap
[2020-07-28 12:00] VITALS: BP 105/66
[2020-07-28] MEDS: cefTRIAXone 1 GM in D5W 55 ML IVPB SCH (12:59)
--- NOTE | 2020-07-28 15:44 | Pulmonology Progress Note ---
Subjective ROS Limited/Unobtainable: Yes Interval Events: none major reported; clear liquid diet Constitutional: Reports: other - transferred from telemetry to ICU HEENT: Repors: no symptoms Respiratory: Reports: no symptoms, dry cough Cardiovascular: Reports: no symptoms; Denies: chest pain, palpitations Gastrointestinal/Abdominal: Reports: no symptoms Allergies: Coded Allergies: No Known Allergies (Unverified , 07/21/20) All Systems: reviewed and negative except above Objective Last 24 Hour Vital Signs Date Time Temp Pulse Resp B/P (MAP) Pulse Ox O2 Delivery O2 Flow Rate FiO2 07/28/20 12:00 98.1 96 38 105/66 (79) 94 07/28/20 12:00 100 07/28/20 12:00 93 07/28/20 12:00 Bi-pap 07/28/20 09:56 102 45 117/73 92 07/28/20 09:44 99.1 07/28/20 09:26 102 45 117/73 92 07/28/20 08:00 Bi-pap 07/28/20 08:00 99.1 102 45 117/73 (88) 94 07/28/20 08:00 104 07/28/20 08:00 100 07/28/20 04:00 Bi-pap 07/28/20 04:00 98.6 112 40 133/69 (90) 94 07/28/20 04:00 98 07/28/20 03:02 105 35 93 100 07/28/20 00:00 98.4 89 30 131/76 (94) 92 07/28/20 00:00 Bi-pap 07/28/20 00:00 100 07/28/20 00:00 90 07/27/20 23:27 105 38 97 100 07/27/20 20:00 100 07/27/20 20:00 98 07/27/20 20:00 98.2 97 20 117/74 (88) 93 07/27/20 20:00 Bi-pap 07/27/20 19:35 111 35 96 100 07/27/20 19:15 92 Bi-Pap 100 07/27/20 18:48 105 38 93 100 07/27/20 18:45 43 07/27/20 16:00 94 07/27/20 16:00 97.7 118 20 115/71 (86) 100 Intake and Output 07/27/20 07/28/20 19:00 07:00 Intake Total 600 ml Output Total 1500 ml 900 ml Balance -900 ml -900 ml Intake Oral 600 ml Output Urine Total 1500 ml 900 ml Objective 07/28 now on BiPAP saturating 88-93% on BiPAP 07/26/2020 pt subjectively feels better; on NRB 15L saturating 94% 07/24/2020 confused and non compliant with oxygen per RN; on Venturi mask 07/23/2020 currently saturating well on 12 L oxygen via Venturi mask General Appearance: no acute distress HEENT: normocephalic Respiratory: chest wall non-tender, crackles/rales Cardiovascular: normal peripheral pulses, normal rate Abdomen: normal bowel sounds Extremities: no cyanosis, no clubbing Laboratory Tests 07/27/20 16:59: POC Whole Blood Glucose [Pending] 07/27/20 21:09: POC Whole Blood Glucose 217H 07/28/20 04:20: White Blood Count 20.9H, Red Blood Count 5.11, Hemoglobin 15.4, Hematocrit 42.3, Mean Corpuscular Volume 83, Mean Corpuscular Hemoglobin 30.1, Mean Corpuscular Hemoglobin Concent 36.4H, Red Cell Distribution Width 14.7, Platelet Count 141L, Mean Platelet Volume 7.3, Neutrophils (%) (Auto) , Lymphocytes (%) (Auto) , Monocytes (%) (Auto) , Eosinophils (%) (Auto) , Basophils (%) (Auto) , Differential Total Cells Counted 100, Neutrophils % (Manual) 89H, Lymphocytes % (Manual) 9L, Monocytes % (Manual) 2, Eosinophils % (Manual) 0, Basophils % (Manual) 0, Band Neutrophils 0, Platelet Estimate DecreasedL, Platelet Mor phology Normal, Anisocytosis 1+, Sodium Level 136, Potassium Level 4.1, Chloride Level 102, Carbon Dioxide Level 30, Anion Gap 4L, Blood Urea Nitrogen 16, Creatinine 0.7, Estimat Glomerular Filtration Rate > 60, Glucose Level 160H, Uric Acid 3.7, Calcium Level 7.8L, Phosphorus Level 2.4L, Magnesium Level 2.1, Total Bilirubin 0.7, Gamma Glutamyl Transpeptidase 31, Aspartate Amino Transf (AST/SGOT) 30, Alanine Aminotransferase (ALT/SGPT) 29, Alkaline Phosphatase 126H , C-Reactive Protein, Quantitative 27.2H, Pro-B-Type Natriuretic Peptide [Pending], Total Protein 6.2L, Albumin 1.8L, Globulin 4.4, Albumin/Globulin Ratio 0.4L, Triglycerides Level 70, Cholesterol Level 92, LDL Cholesterol 61, HDL Cholesterol 17L, Cholesterol/HDL Ratio 5.4H, Thyroid Stimulating Hormone (TSH) 0.919 07/28/20 06:19: POC Whole Blood Glucose 156H 07/28/20 09:18: POC Whole Blood Glucose 179H 07/28/20 11:14: POC Whole Blood Glucose 197H Current Medications Medications (Trade) Dose Ordered Sig/Dalia Route PRN Reason Start Time Stop Time Status Last Admin Dose Admin Acetaminophen (Tylenol) 500 mg Q6H PRN ORAL Mild Pain (Pain Scale 1-3) 07/21/20 08:15 08/20/20 08:14 07/28/20 09:14 Ascorbic Acid (Vitamin C) 500 mg TWICE A DAY ORAL 07/23/20 09:00 08/22/20 08:59 07/27/20 17:16 Ceftriaxone Sodium 1 gm/ Dextrose 55 ml @ 110 mls/hr Q24H IVPB 07/27/20 12:15 08/03/20 12:14 07/28/20 12:59 Dexamethasone Sodium Phosphate (Decadron 4mg/ml vial) 6 mg DAILY IVP 07/22/20 09:00 07/30/20 12:00 07/28/20 09:10 Dextrose (Dextrose 50%) 25 ml Q30M PRN IV Hypoglycemia 07/21/20 13:30 10/19/20 13:29 Dextrose (Dextrose 50%) 50 ml Q30M PRN IV Hypoglycemia 07/21/20 13:30 10/19/20 13:29 Enoxaparin Sodium (Lovenox) 40 mg DAILY SUBQ 07/22/20 09:00 10/20/20 08:59 07/28/20 09:12 Guaifenesin (Robitussin) 200 mg Q4H PRN ORAL For Cough 07/25/20 12:30 10/23/20 12:29 07/27/20 03:29 Insulin Aspart (NovoLOG) BEFORE MEALS AND HS SUBQ 07/21/20 16:30 10/19/20 16:29 07/28/20 11:18 Insulin Aspart (NovoLOG) 14 units TIWM SUBQ 07/27/20 07:00 10/19/20 16:59 07/27/20 17:13 Insulin Detemir (Levemir) 8 units EVERY 12 HOURS SUBQ 07/23/20 09:00 10/19/20 20:59 07/28/20 09:34 Lorazepam (Ativan) 1 mg Q6H PRN ORAL For Anxiety 07/22/20 14:30 07/29/20 14:29 07/28/20 09:26 Mirtazapine (Remeron) 15 mg BEDTIME ORAL 07/22/20 21:00 10/20/20 20:59 07/26/20 20:50 Assessment/Plan Assessment/Plan 1. COVID-19 pneumonia. - On Decadron - on remdesivir per ID specialist - Currently saturating low-mid 90s on BiPAP - CXR 07/24 Marked worsening of bilateral infiltrates - CXR 07/27 Stable or slightly worse extensive bilateral diffuse infiltrates - rocephin added per ID 2. Elevated inflammatory markers. 3. Diabetes mellitus. -On glucose lowering agents 4. DVT prophylaxis - On Lovenox 5. hx of anxiety and confusion - management per Dr. Bridges We will follow carefully The care of this patient was discussed with my supervising physician Time spent for this encounter was approximately 31 minutes Zhao Kaur Jul 28, 2020 15:44 Pradeep Monique MD Jul 28, 2020 16:41
[2020-07-28 16:00] VITALS: BP 129/75
--- NOTE | 2020-07-28 19:00 | NUR ---
NURSE HAND-OFF REPORT: Important Events on Shift: n/a Patient Status: FULL CODE Diet: clear liquid Pending Orders: [] Pending Results/Labs:[] Pending MD notification:[] Latest Vital Signs: Temperature 97.9 , Pulse 85 , B/P 129 /75 , Respiratory Rate 30 , O2 SAT 100 , Non-Rebreather, O2 Flow Rate 15.0 . Vital Sign Comment: stable EKG Rhythm: Sinus Rhythm Rhythm change?: N MD Notified?: - MD Response: Latest Van Fall Score: 35 Fall Risk: Medium Risk Safety Measures: Call light Within Reach, Bed Alarm Zone 1, Side Rails Side Rails x2, Bed position Low and Locked. Fall Precautions: Yellow Socks Yellow Gown Door Sign Report given to CHARMAINE Savage.
--- NOTE | 2020-07-28 19:01 | Progress Note 2 Sig ---
DATE: 07/27/2020 PULMONOLOGY PROGRESS NOTE ATTENDING DOCTOR: Milagro Miller M.D. REVIEW OF SYSTEMS: INTERVAL EVENTS: Still coughing. CONSTITUTIONAL: Denies fever. HEENT: No symptoms. RESPIRATORY: Dry cough. CARDIOVASCULAR: No symptoms. Denies chest pain, palpitation. GASTROINTESTINAL/ABDOMINAL: No symptoms. ALLERGIES: No known allergies. OBJECTIVE: VITAL SIGNS: 07/27 the patient is on nonrebreather mask at 15 L, saturating in the low to mid 90s. GENERAL APPEARANCE: No acute distress. HEENT: Normocephalic. RESPIRATORY: Chest wall nontender, crackles/rales. CARDIOVASCULAR: Normal peripheral pulses, normal rate. ABDOMEN: Normal bowel sounds. EXTREMITIES: No cyanosis, no clubbing. LABORATORY TESTS: Reviewed. ASSESSMENT AND PLAN: 1. COVID-19 pneumonia - on Decadron, on remdesivir per ID specialist. - Currently saturating low to mid 90s on nonrebreather mask at 15 L. - Chest x-ray on , marked worsening of bilateral infiltrates. - Now on ceftriaxone per Dr. Caraballo. 2. Elevated inflammatory markers. 3. Diabetes mellitus - on glucose-lowering agents. 4. DVT prophylaxis - on Lovenox. 5. History of anxiety and confusion - management per Dr. Bridges. 6. We will follow carefully. 7. The care for this patient was discussed with my supervising physician. Time spent for this encounter was approximately 31 minutes. Pradeep Monique M.D. MARY KATE Sharma DR: KARL JOB#: [id number] CC: FILIPPO
--- NOTE | 2020-07-28 19:15 | NUR ---
NURSE NOTES: Received pt and report from CHARMAINE Olivas. Observed pt resting in bed with both eyes open and watching television. Pt is A/Ox4. threat monitoring analyst is in placed; pt is NSR. IV site intact, asymptomatic, and patent. Pt is on continuous BiPAP 12/5, 100% FiO2; O2 saturation is at 94%. Bed is in the lowest position and locked. Call light and bedside table is within reach. No signs/symptoms of acute distress noted. Will continue plan of care.
[2020-07-28 20:00] VITALS: BP 109/67
--- NOTE | 2020-07-28 21:09 | General Progress Note ---
Subjective ROS Limited/Unobtainable: Yes Allergies: Coded Allergies: No Known Allergies (Unverified , 07/21/20) Objective Last 24 Hour Vital Signs Date Time Temp Pulse Resp B/P (MAP) Pulse Ox O2 Delivery O2 Flow Rate FiO2 07/28/20 20:00 100 07/28/20 20:00 Bi-pap 07/28/20 19:47 91 38 94 80 07/28/20 19:47 94 Bi-Pap 80 07/28/20 16:00 100 07/28/20 16:00 97.9 97 30 129/75 (93) 100 07/28/20 16:00 Bi-pap 07/28/20 16:00 85 07/28/20 15:26 97 44 97 90 07/28/20 12:00 98.1 96 38 105/66 (79) 94 07/28/20 12:00 100 07/28/20 12:00 93 07/28/20 12:00 Bi-pap 07/28/20 11:13 97 43 97 100 07/28/20 09:56 102 45 117/73 92 07/28/20 09:44 99.1 07/28/20 09:26 102 45 117/73 92 07/28/20 08:00 Bi-pap 07/28/20 08:00 99.1 102 45 117/73 (88) 94 07/28/20 08:00 104 07/28/20 08:00 100 07/28/20 07:12 108 50 98 100 07/28/20 07:12 98 Bi-Pap 100 07/28/20 04:00 Bi-pap 07/28/20 04:00 98.6 112 40 133/69 (90) 94 07/28/20 04:00 98 07/28/20 03:02 105 35 93 100 07/28/20 00:00 98.4 89 30 131/76 (94) 92 07/28/20 00:00 Bi-pap 07/28/20 00:00 100 07/28/20 00:00 90 07/27/20 23:27 105 38 97 100 Intake and Output 07/27/20 07/28/20 19:00 07:00 Intake Total 600 ml Output Total 1500 ml 900 ml Balance -900 ml -900 ml Intake Oral 600 ml Output Urine Total 1500 ml 900 ml Laboratory Tests 07/27/20 21:09: POC Whole Blood Glucose 217H 07/28/20 04:20: White Blood Count 20.9H, Red Blood Count 5.11, Hemoglobin 15.4, Hematocrit 42.3, Mean Corpuscular Volume 83, Mean Corpuscular Hemoglobin 30.1, Mean Corpuscular Hemoglobin Concent 36.4H, Red Cell Distribution Width 14.7, Platelet Count 141L, Mean Platelet Volume 7.3, Neutrophils (%) (Auto) , Lymphocytes (%) (Auto) , Monocytes (%) (Auto) , Eosinophils (%) (Auto) , Basophils (%) (Auto) , Dif ferential Total Cells Counted 100, Neutrophils % (Manual) 89H, Lymphocytes % (Manual) 9L, Monocytes % (Manual) 2, Eosinophils % (Manual) 0, Basophils % (Manual) 0, Band Neutrophils 0, Platelet Estimate DecreasedL, Platelet Morphology Normal, Anisocytosis 1+, Sodium Level 136, Potassium Level 4.1, Chloride Level 102, Carbon Dioxide Level 30, Anion Gap 4L, Blood Urea Nitrogen 16, Creatinine 0.7, Estimat Glomerular Filtration Rate > 60, Glucose Level 160H, Uric Acid 3.7, Calcium Level 7.8L, Phosphorus Level 2.4L, Magnesium Level 2.1, Total Bilirubin 0.7, Gamma Glutamyl Transpeptidase 31, Aspartate Amino Transf (AST/SGOT) 30, Alanine Aminotransferase (ALT/SGPT) 29, Alkaline Phosphatase 126H , C-Reactive Protein, Quantitative 27.2H, Pro-B-Type Natriuretic Peptide [Pending], Total Protein 6.2L, Albumin 1.8L, Globulin 4.4, Albumin/Globulin Ratio 0.4L, Triglycerides Level 70, Cholesterol Level 92, LDL Cholesterol 61, HDL Cholesterol 17L, Cholesterol/HDL Ratio 5.4H, Thyroid Stimulating Hormone (TSH) 0.919 07/28/20 06:19: POC Whole Blood Glucose 156H 07/28/20 09:18: POC Whole Blood Glucose 179H 07/28/20 11:14: POC Whole Blood Glucose 197H 07/28/20 16:58: POC Whole Blood Glucose 321H 07/28/20 20:24: POC Whole Blood Glucose [Pending] Height (Feet): 5 Height (Inches): 6.00 Weight (Pounds): 172 Assessment/Plan Problem List: (1) Acute respiratory failure with hypoxia ICD Codes: J96.01 - Acute respiratory failure with hypoxia; J12.89 - Other viral pneumonia SNOMED: 06721123, [id number] (2) Pneumonia due to COVID-19 virus ICD Codes: U07.1 - COVID-19; J12.89 - Other viral pneumonia SNOMED: [id number] (3) Hyperglycemia due to type 2 diabetes mellitus ICD Codes: E11.65 - Type 2 diabetes mellitus with hyperglycemia; J12.89 - Other viral pneumonia SNOMED: 709363146280235, [id number] Status: progressing Assessment/Plan: covid positive pna labile sugar weak malnutrition niddm reviewed chart and labs Milagro Miller MD Jul 28, 2020 21:09
[2020-07-28] MEDS: guaiFENesin 100mg/5ml Liq ud ORAL PRN (23:42)
[2020-07-29] VITALS (29 sets, daily range): BP systolic 69–183; BP diastolic 17–116
--- NOTE | 2020-07-29 01:32 | NUR ---
NURSE NOTES: Pt is restless and has a non-productive cough. Pt requested cough medication. Administered Robitussin 200mg PO for cough at 2342. Coughing has now subsided.
[2020-07-29] MEDS: guaiFENesin 100mg/5ml Liq ud ORAL PRN ×2 (04:56→09:32)
[2020-07-29] MEDS: NovoLOG Insulin Flexpen SUBQ SCH ×7 (06:22→21:56)
--- NOTE | 2020-07-29 07:20 | NUR ---
NURSE HAND-OFF REPORT: Important Events on Shift: Pt remains on BiPAP; sating in the low 90s. Pt gets anxious, but calms quickly with reassurance. Patient Status: Stable, ongoing Diet: Clear liquid Pending Orders: N Pending Results/Labs: N Pending MD notification: N Latest Vital Signs: Temperature 98.4 , Pulse 88 , B/P 116 /69 , Respiratory Rate 30 , O2 SAT 93 , Non-Rebreather, O2 Flow Rate 15.0 . EKG Rhythm: Sinus Rhythm Rhythm change?: N Latest Van Fall Score: 35 Fall Risk: Medium Risk Safety Measures: Call light Within Reach, Bed Alarm Zone 1, Side Rails Side Rails x2, Bed position Low and Locked. Fall Precautions: Patient Fall Education Report given to CHARMAINE Martino.
--- NOTE | 2020-07-29 07:20 | NUR ---
NURSE NOTES: Received report from CHARMAINE Christopher
--- NOTE | 2020-07-29 08:30 | NUR ---
NURSE NOTES: Patient is on bed, restless after eating breakfast. His saturation was dropping to high 60s because he is on and off bipap. Dr. Foster is aware via Natasha Churchill (MARY KATE).
[2020-07-29] MEDS: Enoxaparin 40mg Inj SUBQ SCH (09:00)
[2020-07-29] MEDS: Levemir Flexpen SUBQ SCH ×2 (09:33→21:55)
[2020-07-29] MEDS: Ascorbic Acid 500mg tab ORAL SCH ×2 (09:33→18:00)
--- NOTE | 2020-07-29 11:00 | NUR ---
NURSE NOTES: Ordered ABG, and resulted back. Dr. Monique is aware. Changed BiPap settings to / and ordered another ABG at 1600 today. Addendum: 07/29/20 at 1526 by Tin Reese RN Patient is now NPO per doctor Monique. Patient will closely be monitored.
[2020-07-29] MEDS: LORazepam 1mg tab ORAL PRN (11:20)
--- NOTE | 2020-07-29 11:27 | General Progress Note ---
Subjective ROS Limited/Unobtainable: Yes Allergies: Coded Allergies: No Known Allergies (Unverified , 07/21/20) Subjective events noted interval notes reviewed glucose values are stable on clear liquid diet Item Value Date Time Bedside Blood Glucose 132 mg/dl H 07/29/20 1118 Bedside Blood Glucose 199 mg/dl H 07/29/20 0933 Bedside Blood Glucose 199 mg/dl H 07/29/20 0630 Bedside Blood Glucose 172 mg/dl H 07/28/20 2108 Bedside Blood Glucose 321 mg/dl H 07/28/20 1704 Coma Scale Total 15 Points 07/28/20 1200 Bedside Blood Glucose 197 mg/dl H 07/28/20 1130 Bedside Blood Glucose 179 mg/dl H 07/28/20 0934 Objective Last 24 Hour Vital Signs Date Time Temp Pulse Resp B/P (MAP) Pulse Ox O2 Delivery O2 Flow Rate FiO2 07/29/20 11:20 97 47 115/71 96 07/29/20 07:22 94 Bi-Pap 100 07/29/20 07:19 125 60 71 100 07/29/20 04:00 98.4 88 30 116/69 (85) 93 07/29/20 04:00 90 07/29/20 04:00 Bi-pap 07/29/20 04:00 100 07/29/20 02:44 85 40 93 80 07/29/20 00:00 91 07/29/20 00:00 98.1 82 32 136/71 (92) 94 07/29/20 00:00 Bi-pap 07/28/20 22:14 82 44 92 80 07/28/20 20:00 97.7 97 30 109/67 (81) 94 07/28/20 20:00 100 07/28/20 20:00 100 07/28/20 20:00 Bi-pap 07/28/20 19:47 91 38 94 80 07/28/20 19:47 94 Bi-Pap 80 07/28/20 16:00 100 07/28/20 16:00 97.9 97 30 129/75 (93) 100 07/28/20 16:00 Bi-pap 07/28/20 16:00 85 07/28/20 15:26 97 44 97 90 07/28/20 12:00 98.1 96 38 105/66 (79) 94 12/19/20 12:00 100 07/28/20 12:00 93 07/28/20 12:00 Bi-pap Intake and Output 07/28/20 07/29/20 19:00 07:00 Intake Total 455 ml 460 ml Output Total 850 ml 650 ml Balance -395 ml -190 ml Intake Oral 400 ml 460 ml IV Total 55 ml Output Urine Total 850 ml 650 ml # Voids 2 Laboratory Tests 07/28/20 16:58: POC Whole Blood Glucose 321H 07/28/20 20:24: POC Whole Blood Glucose [Pending] 07/29/20 05:32: POC Whole Blood Glucose 199H 07/29/20 10:43: Arterial Blood pH 7.482H, Arterial Blood Partial Pressure CO2 38.5, Arterial Blood Partial Pressure O2 48.3*L, Arterial Blood HCO3 28.2H, Arterial Blood Oxygen Saturation 86.6*L, Arterial Blood Base Excess 4.5H, Francisco Test Positive 07/29/20 11:13: POC Whole Blood Glucose [Pending] Height (Feet): 5 Height (Inches): 6.00 Weight (Pounds): 172 Objective Current Medications Medications (Trade) Dose Ordered Sig/Dalia Route PRN Reason Start Time Stop Time Status Last Admin Dose Admin Acetaminophen (Tylenol) 500 mg Q6H PRN ORAL Mild Pain (Pain Scale 1-3) 07/21/20 08:15 08/20/20 08:14 07/28/20 09:14 Ascorbic Acid (Vitamin C) 500 mg TWICE A DAY ORAL 07/23/20 09:00 08/22/20 08:59 07/29/20 09:33 Ceftriaxone Sodium 1 gm/ Dextrose 55 ml @ 110 mls/hr Q24H IVPB 07/27/20 12:15 08/03/20 12:14 07/28/20 12:59 Dexamethasone Sodium Phosphate (Decadron 4mg/ml vial) 6 mg DAILY IVP 07/22/20 09:00 07/30/20 12:00 07/29/20 09:33 Dextrose (Dextrose 50%) 25 ml Q30M PRN IV Hypoglycemia 07/21/20 13:30 10/19/20 13:29 Dextrose (Dextrose 50%) 50 ml Q30M PRN IV Hypoglycemia 07/21/20 13:30 10/19/20 13:29 Enoxaparin Sodium (Lovenox) 40 mg DAILY SUBQ 07/22/20 09:00 10/20/20 08:59 07/28/20 09:12 Guaifenesin (Robitussin) 200 mg Q4H PRN ORAL For Cough 07/25/20 12:30 10/23/20 12:29 07/29/20 09:32 Insulin Aspart (NovoLOG) BEFORE MEALS AND HS SUBQ 07/21/20 16:30 10/19/20 16:29 07/29/20 06:22 Insulin Aspart (NovoLOG) 14 units TIWM SUBQ 07/27/20 07:00 10/19/20 16:59 07/28/20 17:04 Insulin Detemir (Levemir) 8 units EVERY 12 HOURS SUBQ 07/23/20 09:00 10/19/20 20:59 07/29/20 09:33 Lorazepam (Ativan) 1 mg Q6H PRN ORAL For Anxiety 07/22/20 14:30 07/29/20 14:29 07/29/20 11:20 Mirtazapine (Remeron) 15 mg BEDTIME ORAL 07/22/20 21:00 10/20/20 20:59 07/28/20 21:07 Assessment/Plan Problem List: (1) Pneumonia due to COVID-19 virus ICD Codes: U07.1 - COVID-19; J12.89 - Other viral pneumonia SNOMED: 876921436361219525 (2) Hyperglycemia due to type 2 diabetes mellitus ICD Codes: E11.65 - Type 2 diabetes mellitus with hyperglycemia; J12.89 - Other viral pneumonia SNOMED: 853550960525330, [id number] (3) Acute respiratory failure with hypoxia ICD Codes: J96.01 - Acute respiratory failure with hypoxia; J12.89 - Other viral pneumonia SNOMED: 43772319, [id number] Status: progressing Assessment/Plan: continue Levemir 8 units bid reduce Novolog to 8 units ac tid + sliding scale hypoglycemia protocol in order Sandor Briceño MD Jul 29, 2020 11:27
[2020-07-29] MEDS: cefTRIAXone 1 GM in D5W 55 ML IVPB SCH (11:30)
--- NOTE | 2020-07-29 12:32 | Infectious Diseases Prog Note ---
Assessment/Plan Assessment/Plan IMPRESSION: COVID-19 disease seems to be severe. Diabetes mellitus with hyperglycemia. Hypoxemic. Lymphocytopenia. Sinus tachycardia Leukocytosis RECOMMENDATION: Continue dexamethasone Finished remdesivir course Continue Rocephin Subjective ROS Limited/Unobtainable: Yes Constitutional: Denies: fever Respiratory: Reports: shortness of breath Musculoskeletal: Reports: other - legs cramps Allergies: Coded Allergies: No Known Allergies (Unverified , 07/21/20) Objective Last 24 Hour Vital Signs Date Time Temp Pulse Resp B/P (MAP) Pulse Ox O2 Delivery O2 Flow Rate FiO2 07/29/20 11:20 97 47 115/71 96 07/29/20 08:00 98.2 89 30 115/66 (82) 96 07/29/20 07:46 111 07/29/20 07:22 94 Bi-Pap 100 07/29/20 07:19 125 60 71 100 07/29/20 04:00 98.4 88 30 116/69 (85) 93 07/29/20 04:00 90 07/29/20 04:00 Bi-pap 07/29/20 04:00 100 07/29/20 02:44 85 40 93 80 07/29/20 00:00 91 07/29/20 00:00 98.1 82 32 136/71 (92) 94 07/29/20 00:00 Bi-pap 07/28/20 22:14 82 44 92 80 07/28/20 20:00 97.7 97 30 109/67 (81) 94 07/28/20 20:00 100 07/28/20 20:00 100 07/28/20 20:00 Bi-pap 07/28/20 19:47 91 38 94 80 07/28/20 19:47 94 Bi-Pap 80 07/28/20 16:00 100 07/28/20 16:00 97.9 97 30 129/75 (93) 100 07/28/20 16:00 Bi-pap 07/28/20 16:00 85 07/28/20 15:26 97 44 97 90 Height (Feet): 5 Height (Inches): 6.00 Weight (Pounds): 172 HEENT: mucous membranes moist Respiratory/Chest: lungs clear, other - on BIPAP, [id number]% Cardiovascular: normal rate Abdomen: soft, non tender Extremities: no edema Neurologic/Psychiatric: alert, responsive Laboratory Tests Test 07/28/20 16:58 07/28/20 20:24 07/29/20 05:32 07/29/20 10:43 POC Whole Blood Glucose 321 MG/DL (74-106) H Pending 199 MG/DL (74-106) H Arterial Blood pH 7.482 (7.350-7.450) Arterial Blood Partial Pressure CO2 38.5 mmHg (35.0-45.0) Arterial Blood Partial Pressure O2 48.3 mmHg (75.0-100.0) Arterial Blood HCO3 28.2 mmol/L (22.0-26.0) H Arterial Blood Oxygen Saturation 86.6 % (95-100) *L Arterial Blood Base Excess 4.5 (-2-2) H Francisco Test Positive Test 07/29/20 11:13 POC Whole Blood Glucose Pending Current Medications Medications (Trade) Dose Ordered Sig/Dalia Route PRN Reason Start Time Stop Time Status Last Admin Dose Admin Acetaminophen (Tylenol) 500 mg Q6H PRN ORAL Mild Pain (Pain Scale 1-3) 07/21/20 08:15 08/20/20 08:14 07/28/20 09:14 Ascorbic Acid (Vitamin C) 500 mg TWICE A DAY ORAL 07/23/20 09:00 08/22/20 08:59 07/29/20 09:33 Ceftriaxone Sodium 1 gm/ Dextrose 55 ml @ 110 mls/hr Q24H IVPB 07/27/20 12:15 08/03/20 12:14 07/29/20 11:30 Dexamethasone Sodium Phosphate (Decadron 4mg/ml vial) 6 mg DAILY IVP 07/22/20 09:00 07/30/20 12:00 07/29/20 09:33 Dextrose (Dextrose 50%) 25 ml Q30M PRN IV Hypoglycemia 07/21/20 13:30 10/19/20 13:29 Dextrose (Dextrose 50%) 50 ml Q30M PRN IV Hypoglycemia 07/21/20 13:30 10/19/20 13:29 Enoxaparin Sodium (Lovenox) 40 mg DAILY SUBQ 07/22/20 09:00 10/20/20 08:59 07/28/20 09:12 Guaifenesin (Robitussin) 200 mg Q4H PRN ORAL For Cough 07/25/20 12:30 3/16/21 12:29 07/29/20 09:32 Insulin Aspart (NovoLOG) BEFORE MEALS AND HS SUBQ 07/21/20 16:30 10/19/20 16:29 07/29/20 06:22 Insulin Aspart (NovoLOG) 8 units TIWM SUBQ 07/29/20 12:00 10/19/20 16:59 Insulin Detemir (Levemir) 8 units EVERY 12 HOURS SUBQ 07/23/20 09:00 10/19/20 20:59 07/29/20 09:33 Lorazepam (Ativan) 1 mg Q6H PRN ORAL For Anxiety 07/22/20 14:30 07/29/20 14:29 07/29/20 11:20 Mirtazapine (Remeron) 15 mg BEDTIME ORAL 07/22/20 21:00 10/20/20 20:59 07/28/20 21:07 Christian Caraballo MD Jul 29, 2020 12:32
--- NOTE | 2020-07-29 16:46 | Emergency Room Report ---
Physical Exam Vital Signs Date Time Temp Pulse Resp B/P (MAP) Pulse Ox O2 Delivery O2 Flow Rate FiO2 07/25/20 07:49 97.3 101 22 143/83 (103) 90 07/25/20 09:00 Non-Rebreather 15.0 07/25/20 09:58 100 Medical Decision Making Diagnostic Impression: Primary Impression: Pneumonia due to COVID-19 virus Additional Impressions: Acute respiratory failure with hypoxia Hyperglycemia due to type 2 diabetes mellitus ER Course Called to patient room for CODE BLUE. Patient admitted with COVID-19 pneumonia and respiratory failure. He had previously been on BiPAP with worsening ABG. Patient reportedly removed his BiPAP. Found unresponsive though with a pulse. Rapid response and CODE BLUE initiated. Patient saturating 60% with bag mask ventilations on my arrival. Intubated with direct visualization on first attempt without complication. Oxygenation improved. Transfer to ICU. Post intubation x-ray shows endotracheal tube above the antonio that was retracted 2 cm. Recall as needed. Chest X-Ray Diagnostic Results Chest X-Ray Diagnostic Results : Chest X-Ray Ordered: Yes # of Views/Limited/Complete: 1 View Indication: Other - Intubation EP Interpretation: Yes Interpretation: other - ETT above the antonio approximate 1 cm. Bilateral infiltrate Impression: Other - ETT above antonio. Bilateral infiltrate Electronically Signed by: Electronically signed by Dr. Steven Marcial MD Last Vital Signs Date Time Temp Pulse Resp B/P (MAP) Pulse Ox O2 Delivery O2 Flow Rate FiO2 07/29/20 15:09 84 53 94 100 07/29/20 12:00 Bi-pap 07/29/20 12:00 98.1 109/71 (84) 07/26/20 20:09 15.0 Disposition: ADMITTED INPATIENT Condition: Serious Referrals: NOT CHOSEN IPA/,REFERRING (PCP) Procedures Intubation Intubation : Consent: Emergent Intubation Method: orotracheal Tube Size (cm): 7.5 Medications: Etomidate, Rocuronium Breath Sounds after Intubation: equal Intubation Complications: no complications Post Intubation Xray: Yes Progress/Xray Impression: ETT above antonio Attempts: One Patient Tolerated: Well Complications: None Steven Marcial MD Jul 29, 2020 16:46
--- NOTE | 2020-07-29 17:00 | NUR ---
NURSE NOTES: Responded to ADVERTISING DESIGNER however a code blue was called, patient in respiratory distress. Whiile bagging the patient, patient was aggressive and confused. Patient was sedated and successfully intubated and transferred to the ICU. Will get orders for patient.
[2020-07-29] MEDS ORDERED: Metoprolol Tartrate 5mg/5ml Inj IVP SCH (17:15)
[2020-07-29] MEDS ORDERED: LORazepam 1mg tab ORAL PRN (17:15)
[2020-07-29] MEDS ORDERED: LORazepam Inj 2mg/ml 1ml IV PRN (17:30)
--- NOTE | 2020-07-29 17:33 | Pulmonology Progress Note ---
Subjective ROS Limited/Unobtainable: Yes Interval Events: s/p intubation, sedation, now in ICU Constitutional: Denies: fever HEENT: Repors: no symptoms Respiratory: Reports: no symptoms, dry cough Cardiovascular: Reports: no symptoms; Denies: chest pain, palpitations Gastrointestinal/Abdominal: Reports: no symptoms Musculoskeletal: Reports: other - legs cramps Allergies: Coded Allergies: No Known Allergies (Unverified , 07/21/20) All Systems: reviewed and negative except above Objective Last 24 Hour Vital Signs Date Time Temp Pulse Resp B/P (MAP) Pulse Ox O2 Delivery O2 Flow Rate FiO2 07/29/20 15:09 84 53 94 100 07/29/20 12:00 100 07/29/20 12:00 Bi-pap 07/29/20 12:00 98.1 99 30 109/71 (84) 94 07/29/20 11:43 97 07/29/20 11:20 97 47 115/71 96 07/29/20 11:14 107 40 95 100 07/29/20 08:00 Bi-pap 07/29/20 08:00 100 07/29/20 08:00 98.2 89 30 115/66 (82) 96 07/29/20 07:46 111 07/29/20 07:22 94 Bi-Pap 100 07/29/20 07:19 125 60 71 100 07/29/20 04:00 98.4 88 30 116/69 (85) 93 07/29/20 04:00 90 07/29/20 04:00 Bi-pap 07/29/20 04:00 100 07/29/20 02:44 85 40 93 80 07/29/20 00:00 91 07/29/20 00:00 98.1 82 32 136/71 (92) 94 07/29/20 00:00 Bi-pap 07/28/20 22:14 82 44 92 80 07/28/20 20:00 97.7 97 30 109/67 (81) 94 07/28/20 20:00 100 07/28/20 20:00 100 07/28/20 20:00 Bi-pap 07/28/20 19:47 91 38 94 80 07/28/20 19:47 94 Bi-Pap 80 Intake and Output 07/28/20 07/29/20 19:00 07:00 Intake Total 455 ml 460 ml Output Total 850 ml 650 ml Balance -395 ml -190 ml Intake Oral 400 ml 460 ml IV Total 55 ml Output Urine Total 850 ml 650 ml # Voids 2 Objective 07/29 now in ICU; s/p intubated, sedated 07/28 now on BiPAP saturating 88-93% on BiPAP 07/26/2020 pt subjectively feels better; on NRB 15L saturating 94% 07/24/2020 confused and non compliant with oxygen per RN; on Venturi mask 07/23/2020 currently saturating well on 12 L oxygen via Venturi mask General Appearance: no acute distress HEENT: normocephalic Respiratory: chest wall non-tender, crackles/rales Cardiovascular: normal peripheral pulses, normal rate Abdomen: normal bowel sounds Extremities: no cyanosis, no clubbing Laboratory Tests 07/28/20 20:24: POC Whole Blood Glucose [Pending] 07/29/20 05:32: POC Whole Blood Glucose 199H 07/29/20 10:43: Arterial Blood pH 7.482H, Arterial Blood Partial Pressure CO2 38.5, Arterial Blood Partial Pressure O2 48.3*L, Arterial Blood HCO3 28.2H, Arterial Blood Oxygen Saturation 86.6*L, Arterial Blood Base Excess 4.5H, Francisco Test Positive 07/29/20 11:13: POC Whole Blood Glucose [Pending] 07/29/20 15:37: Arterial Blood pH 7.436, Arterial Blood Partial Pressure CO2 38.4, Arterial Blood Partial Pressure O2 66.8L, Arterial Blood HCO3 25.3, Arterial Blood Oxygen Saturation 93.5L, Arterial Blood Base Excess 1.2, Francisco Test Positive 07/29/20 17:19: Arterial Blood pH [Pending], Arterial Blood Partial Pressure CO2 [Pending], Talia rial Blood Partial Pressure O2 [Pending], Arterial Blood HCO3 [Pending], Arterial Blood Oxygen Saturation [Pending], Arterial Blood Base Excess [Pending], Francisco Test [Pending] Current Medications Medications (Trade) Dose Ordered Sig/Dalia Route PRN Reason Start Time Stop Time Status Last Admin Dose Admin Acetaminophen (Tylenol) 500 mg Q6H PRN ORAL Mild Pain (Pain Scale 1-3) 07/21/20 08:15 08/20/20 08:14 07/28/20 09:14 Ascorbic Acid (Vitamin C) 500 mg TWICE A DAY ORAL 07/23/20 09:00 08/22/20 08:59 07/29/20 09:33 Ceftriaxone Sodium 1 gm/ Dextrose 55 ml @ 110 mls/hr Q24H IVPB 07/27/20 12:15 08/03/20 12:14 07/29/20 11:30 Dexamethasone Sodium Phosphate (Decadron 4mg/ml vial) 6 mg DAILY IVP 07/22/20 09:00 07/30/20 12:00 07/29/20 09:33 Dextrose (Dextrose 50%) 25 ml Q30M PRN IV Hypoglycemia 07/21/20 13:30 10/19/20 13:29 Dextrose (Dextrose 50%) 50 ml Q30M PRN IV Hypoglycemia 07/21/20 13:30 10/19/20 13:29 Enoxaparin Sodium (Lovenox) 40 mg DAILY SUBQ 07/22/20 09:00 10/20/20 08:59 07/28/20 09:12 Fentanyl Citrate 2500 mcg/Sodium Chloride 250 ml @ 1 mls/hr Q24H IV 07/29/20 17:30 07/31/20 17:29 Guaifenesin (Robitussin) 200 mg Q4H PRN ORAL For Cough 07/25/20 12:30 10/23/20 12:29 07/29/20 09:32 Insulin Aspart (NovoLOG) BEFORE MEALS AND HS SUBQ 07/21/20 16:30 10/19/20 16:29 07/29/20 06:22 Insulin Aspart (NovoLOG) 8 units TIWM SUBQ 07/29/20 12:00 10/19/20 16:59 Insulin Detemir (Levemir) 8 units EVERY 12 HOURS SUBQ 07/23/20 09:00 10/19/20 20:59 07/29/20 09:33 Lorazepam (Ativan 2mg/ml 1ml) 1 mg Q4H PRN IV For Anxiety 07/29/20 17:15 08/05/20 17:14 Metoprolol Tartrate (Lopressor) 5 mg Q5MIN X 3 IVP 07/29/20 17:15 07/29/20 19:00 Mirtazapine (Remeron) 15 mg BEDTIME ORAL 07/22/20 21:00 10/20/20 20:59 07/28/20 21:07 Remdesivir 100 mg/ Sodium Chloride 250 ml @ 250 mls/hr Q24H IV 07/29/20 17:15 07/27/21 18:00 UNV Assessment/Plan Assessment/Plan 1. COVID-19 pneumonia. - On Decadron - finished remdesivir per ID specialist - per RT, he was found to be off BiPAP and was desaturating at 48% in bed - he was sedated, intubated, now in ICU; tachycardia, hypertension - CXR 07/24 Marked worsening of bilateral infiltrates - CXR 07/27 Stable or slightly worse extensive bilateral diffuse infiltrates - on rocephin per ID 2. Elevated inflammatory markers. 3. Diabetes mellitus. -On glucose lowering agents 4. DVT prophylaxis - On Lovenox 5. hx of anxiety and confusion - management per Dr. Bridges We will follow carefully The care of this patient was discussed with my supervising physician Time spent for this encounter was approximately 31 minutes Zhao Kaur Jul 29, 2020 17:33
[2020-07-29] MEDS: LORazepam Inj 2mg/ml 1ml IV PRN (18:10)
--- NOTE | 2020-07-29 18:16 | Diagnostic Imaging Report ---
EXAM: XR Chest, 1 View CLINICAL HISTORY: Follow-up shortness of breath TECHNIQUE: Frontal view of the chest. COMPARISON: Chest x-ray 07/27/2020 FINDINGS: Lungs: Patchy and confluent opacities throughout the left greater than right lungs are not significantly changed from the previous exam given differences in technique. Pleural space: Unremarkable. No pneumothorax. Heart: Unremarkable. No cardiomegaly. Mediastinum: Unremarkable. Bones/joints: Unremarkable. Tubes, lines and devices: Interval intubation with a low lying ET tube, terminating approximately 1 cm above the antonio. IMPRESSION: 1. Interval intubation with a low lying ET tube, terminating approximately 1 cm above the antonio. Consider repositioning. 2. Patchy and confluent opacities throughout the left greater than right lungs are not significantly changed from the previous exam given differences in technique.
[2020-07-29] MEDS: propofoL 1,000mg/100ml 100 ML IV SCH (19:00)
--- NOTE | 2020-07-29 19:30 | NUR ---
NURSE NOTES: Received pt S/P code Blue was just newly intubated now combative and very restless, St 125/min on the monitor , bp stable, afebrile. Orally intubated on ac mode . Bilateral soft wrist restraints mainatained for safety to avoid pulling out therapeutic devices.. Will continue to monitor.
--- NOTE | 2020-07-29 19:30 | NUR ---
NURSE NOTES: Patient is extremely combative and resistive to care requiring Diprivan to be started at high dose. Patient broke out of restraints and took four staff members to assist with this patient. Patient is with close monitoring and close to nurses station. Patient is with BL soft wrist restraints for safety measures and with bed alarmed.
[2020-07-29] MEDS: fentaNYL Citrate 2,500 MCG in NS 200 ML IV SCH (19:45)
--- NOTE | 2020-07-29 20:00 | NUR ---
NURSE NOTES: Pt on Diprivan drip at 40mcg/kg/min, Fentanyl drip at 10mcg/ min,to keep RASS SCORE -2 as well as NS at 75ml/hr. Site atraumatic at this time.
--- NOTE | 2020-07-29 20:19 | General Progress Note ---
Subjective ROS Limited/Unobtainable: Yes Allergies: Coded Allergies: No Known Allergies (Unverified , 07/21/20) Objective Last 24 Hour Vital Signs Date Time Temp Pulse Resp B/P (MAP) Pulse Ox O2 Delivery O2 Flow Rate FiO2 07/29/20 19:45 34 100/61 Mechanical Ventilator 100.0 100 07/29/20 19:17 134 48 100 07/29/20 19:16 72 Mechanical Ventilator 100 07/29/20 19:00 45 91/60 Mechanical Ventilator 100 07/29/20 18:40 137 39 182/112 78 07/29/20 18:10 130 33 151/83 98 07/29/20 17:37 158 26 97 Mechanical Ventilator 60.0 100 07/29/20 17:34 146 172/95 07/29/20 17:29 158 23 100 07/29/20 16:00 48 07/29/20 15:30 90 07/29/20 15:09 84 53 94 100 07/29/20 12:00 100 07/29/20 12:00 Bi-pap 07/29/20 12:00 98.1 99 30 109/71 (84) 94 07/29/20 11:43 97 07/29/20 11:20 97 47 115/71 96 07/29/20 11:14 107 40 95 100 07/29/20 08:00 Bi-pap 07/29/20 08:00 100 07/29/20 08:00 98.2 89 30 115/66 (82) 96 07/29/20 07:46 111 07/29/20 07:22 94 Bi-Pap 100 07/29/20 07:19 125 60 71 100 07/29/20 04:00 98.4 88 30 116/69 (85) 93 07/29/20 04:00 90 07/29/20 04:00 Bi-pap 07/29/20 04:00 100 07/29/20 02:44 85 40 93 80 07/29/20 00:00 91 07/29/20 00:00 98.1 82 32 136/71 (92) 94 07/29/20 00:00 Bi-pap 07/28/20 22:14 82 44 92 80 Intake and Output 07/28/20 07/29/20 19:00 07:00 Intake Total 455 ml 460 ml Output Total 850 ml 650 ml Balance -395 ml -190 ml Intake Oral 400 ml 460 ml IV Total 55 ml Output Urine Total 850 ml 650 ml # Voids 2 Laboratory Tests 07/28/20 20:24: POC Whole Blood Glucose [Pending] 07/29/20 05:32: POC Whole Blood Glucose 199H 07/29/20 10:43: Arterial Blood pH 7.482H, Arterial Blood Partial Pressure CO2 38.5, Arterial Blood Partial Pressure O2 48.3*L, Arterial Blood HCO3 28.2H, Arterial Blood Oxygen Saturation 86.6*L, Arterial Blood Base Excess 4.5H, Francisco Test Positive 07/29/20 11:13: POC Whole Blood Glucose [Pending] 07/29/20 15:37: Arterial Blood pH 7.436, Arterial Blood Partial Pressure CO2 38.4, Arterial Blood Partial Pressure O2 66.8L, Arterial Blood HCO3 25.3, Arterial Blood Oxygen Saturation 93.5L, Arterial Blood Base Excess 1.2, Francisco Test Positive 07/29/20 17:19: Arterial Blood pH 7.244*L, Arterial Blood Partial Pressure CO2 62.0*H, Arterial Blood Partial Pressure O2 128.9H, Arterial Blood HCO3 26.2H, Arterial Blood Oxygen Saturation 97.7, Arterial Blood Base Excess -2.6L, Francisco Test Positive Height (Feet): 5 Height (Inches): 6.00 Weight (Pounds): 172 Assessment/Plan Problem List: (1) Acute respiratory failure with hypoxia ICD Codes: J96.01 - Acute respiratory failure with hypoxia; J12.89 - Other viral pneumonia SNOMED: 32454207, [id number] (2) Pneumonia due to COVID-19 virus ICD Codes: U07.1 - COVID-19; J12.89 - Other viral pneumonia SNOMED: 516633947031994910 (3) Hyperglycemia due to type 2 diabetes mellitus ICD Codes: E11.65 - Type 2 diabetes mellitus with hyperglycemia; J12.89 - Other viral pneumonia SNOMED: 053762954613759, 50887320 Status: progressing Assessment/Plan: covid positive pna worsening respiratory condition deterioating niddm Milagro Miller MD Jul 29, 2020 20:19
--- NOTE | 2020-07-29 20:56 | Diagnostic Imaging Report ---
EXAM: XR Chest, 1 View CLINICAL HISTORY: TUBE PLACEMENT TECHNIQUE: Frontal view of the chest. COMPARISON: Chest radiograph 07/29/2028 at 5:40 PM. FINDINGS: Lungs: Grossly stable patchy and confluent opacities throughout the left greater than right lungs. Pleural space: Unremarkable. No pneumothorax. Heart: Unremarkable. No cardiomegaly. Mediastinum: Unremarkable. Bones/joints: Unremarkable. Tubes, lines and devices: Interval retraction of an enteric tube, now in good position, terminating approximately 3 cm above the antonio. IMPRESSION: Interval retraction of an enteric tube, now in good position, terminating approximately 3 cm above the antonio. Otherwise no significant interval change compared to the previous exam with patchy and confluent opacities throughout both lungs.
--- NOTE | 2020-07-29 22:21 | NUR ---
NURSE NOTES: Called DR Monique with blood gas result, as well as maintainance IVF, with orders given, pls see orders.
[2020-07-29] MEDS: DOPamine 400mg/250ml 250 ML IV SCH (23:18)
--- NOTE | 2020-07-29 23:45 | NUR ---
NURSE NOTES: MD Miller Called back at this time. Informed me he has called ER MD to Place central line for the patient. Also ordered to consult MD Carranza for any cardiac issues.
[2020-07-30] VITALS (44 sets, daily range): BP systolic 77–169; BP diastolic 39–81
[2020-07-30] MEDS: propofoL 1,000mg/100ml 100 ML IV SCH ×3 (00:15→22:32)
--- NOTE | 2020-07-30 00:44 | Emergency Room Report ---
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 COVID-19 Screening: Positive COVID-19 Nursing Documentation-PMH Hx Diabetes: Yes Physical Exam Vital Signs Date Time Temp Pulse Resp B/P (MAP) Pulse Ox O2 Delivery O2 Flow Rate FiO2 07/25/20 04:00 116 07/25/20 04:00 96.0 24 128/81 (97) 90 07/25/20 09:00 Non-Rebreather 15.0 07/25/20 09:58 100 Procedures Central Line Central Line : Consent: Emergent Central Line Lumen: triple Maximal Sterile Barrier Tech: yes cap, yes mask, yes sterile gown, yes sterile gloves, yes large sterile sheet, yes hand hygiene, yes chlorhexidine prep No Max Barrier Tech Because: emergency insertion Central Line Postion: femoral (R) US Guided Line?: Yes Vessel visualized with U/S: Right Femoral Vein Ultrasound Findings: Collapsible Vessel, Vessel Patent, Color flow present, Visualize vessel puncture Complications: none Central Line Post Position: sutured, good blood return Attempts: One Patient Tolerated: Well Complications: None Medical Decision Making Diagnostic Impression: Primary Impression: Pneumonia due to COVID-19 virus Additional Impressions: Acute respiratory failure with hypoxia Hyperglycemia due to type 2 diabetes mellitus ER Course I was called to the intensive care unit for emergent central line placement as patient was critically hypotensive requiring pressor support. Central line was placed in the right femoral vein as described above. No complications. Last Vital Signs Date Time Temp Pulse Resp B/P (MAP) Pulse Ox O2 Delivery O2 Flow Rate FiO2 07/30/20 00:15 24 105/50 Mechanical Ventilator 100 07/29/20 22:30 106 07/29/20 19:45 100.0 07/29/20 19:16 72 07/29/20 16:30 97.8 Disposition: ADMITTED INPATIENT Condition: Serious Referrals: NOT CHOSEN IPA/,REFERRING (PCP) Keith Aguilera M.D. Jul 30, 2020 00:44
--- NOTE | 2020-07-30 01:00 | NUR ---
NURSE NOTES: ER came , Dr Aguilera, and inserted cenrtral line RT Femoral. succesfully with orders to start ok to start using with IV fluids.
--- NOTE | 2020-07-30 02:35 | NUR ---
NURSE NOTES: Pt continuos to desat into 80s ,blood gas was obtained and notify Dr Aparicio that pt continuos to desat, with orders to increase peep to 15. Resp Therapist was notified,
--- NOTE | 2020-07-30 04:00 | NUR ---
NURSE NOTES: Complete bed bath with bed changed was done.
[2020-07-30] MEDS: LORazepam Inj 2mg/ml 1ml IV PRN (04:05)
--- NOTE | 2020-07-30 05:00 | NUR ---
NURSE NOTES: OGT inserted , to be verified with KUB.
[2020-07-30 05:55] LABS: HEMATOCRIT 40.3 % (42.0-52.0); HEMOGLOBIN 13.7 G/DL (14.2-18.0); MEAN CORPUSCULAR VOLUME 89 FL (80-99); PLATELET COUNT 141 K/UL (150-450); RED BLOOD COUNT 4.53 M/UL (4.70-6.10); RED CELL DISTRIBUTION WIDTH 13.8 % (11.6-14.8)
--- NOTE | 2020-07-30 06:00 | NUR ---
NURSE NOTES: Increased Dopamine drip up to 8mcg/kg/min due to SBP on the 80s
[2020-07-30 06:10] LABS: WHITE BLOOD COUNT 23.2 K/UL (4.8-10.8)
[2020-07-30 06:20] LABS: ALANINE AMINOTRANSFERASE 24 U/L (12-78); ALBUMIN 1.7 G/DL (3.4-5.0); ALBUMIN/GLOBULIN RATIO 0.4 (1.0-2.7); ALKALINE PHOSPHATASE 142 U/L (46-116); ANION GAP 3 mmol/L (5-15); ASPARTATE AMINO TRANSFERASE 25 U/L (15-37); BILIRUBIN,TOTAL 0.5 MG/DL (0.2-1.0); BLOOD UREA NITROGEN 25 mg/dL (7-18); CALCIUM 7.3 MG/DL (8.5-10.1); CARBON DIOXIDE 30 MMOL/L (21-32); CHLORIDE 105 MMOL/L (98-107); CREATININE 0.8 MG/DL (0.55-1.30); POTASSIUM 4.2 MMOL/L (3.5-5.1); SODIUM 138 MMOL/L (136-145); TRIGLYCERIDES 162 MG/DL (30-150)
[2020-07-30] MEDS: NovoLOG Insulin Flexpen SUBQ SCH ×7 (06:27→21:23)
--- NOTE | 2020-07-30 06:30 | NUR ---
NURSE NOTES: 02 sat >92% with peep 15.
--- NOTE | 2020-07-30 07:30 | NUR ---
NURSE NOTES: Patient stable at this time. Sedated at RASS -2. RR even and unlabored ventilated through ETT. Breath sounds diminished cardiac sounds benign. Bowel sounds present. Radial pulses bounding with BL soft wrist restraints on with good ROM, circulation and sensation. Miranda draining well to gravity. RT femoral TLC flushed and patent with dressing dry and intact. Fentanyl 150mcg, Propofol 20mcg and Dopamine 8mcg infusing. Side rails upx2, call light within reach, bed low and locked. OGT at 55cm. KUB ordered.
--- NOTE | 2020-07-30 07:49 | General Progress Note ---
Subjective ROS Limited/Unobtainable: Yes Allergies: Coded Allergies: No Known Allergies (Unverified , 07/21/20) Subjective events noted interval notes reviewed glucose values in fair control Item Value Date Time Bedside Blood Glucose 194 mg/dl H 07/30/20 0627 Bedside Blood Glucose 331 mg/dl H 07/29/20 2156 Bedside Blood Glucose 132 mg/dl H 07/29/20 1130 Bedside Blood Glucose 199 mg/dl H 07/29/20 0933 Bedside Blood Glucose 199 mg/dl H 07/29/20 0630 Objective Last 24 Hour Vital Signs Date Time Temp Pulse Resp B/P (MAP) Pulse Ox O2 Delivery O2 Flow Rate FiO2 07/30/20 07:00 125/60 07/30/20 06:30 29 135/60 Mechanical Ventilator 100 07/30/20 06:30 29 135/60 Mechanical Ventilator 100 07/30/20 06:15 85 30 91/41 (58) 93 07/30/20 06:00 74 29 98/41 (60) 98 07/30/20 06:00 80/45 07/30/20 05:45 87 33 104/52 (69) 95 07/30/20 05:30 74 29 95/42 (59) 97 07/30/20 05:30 32 104/52 Mechanical Ventilator 100 07/30/20 05:30 32 104/52 Mechanical Ventilator 100 07/30/20 05:15 95 28 114/57 (76) 91 07/30/20 05:00 114/57 07/30/20 05:00 92 34 128/46 (73) 85 07/30/20 04:45 94 25 118/52 (74) 89 07/30/20 04:35 89 29 104/52 94 07/30/20 04:30 99 31 114/53 (73) 88 07/30/20 04:30 31 118/52 Mechanical Ventilator 100 07/30/20 04:30 31 118/52 Mechanical Ventilator 100 07/30/20 04:15 104 34 110/54 (72) 87 07/30/20 04:05 112 42 158/53 (88) 90 07/30/20 04:05 112 42 154/77 89 07/30/20 04:00 100 07/30/20 04:00 73 07/30/20 04:00 Mechanical Ventilator 07/30/20 04:00 158/53 07/30/20 04:00 99.0 100 33 140/55 (83) 89 07/30/20 03:30 33 110/54 Mechanical Ventilator 100 07/30/20 03:30 33 110/54 Mechanical Ventilator 100 07/30/20 03:00 111/56 07/30/20 02:52 74 28 100 07/30/20 02:30 26 128/46 Mechanical Ventilator 100 07/30/20 02:30 26 128/46 Mechanical Ventilator 100 07/30/20 02:15 32 114/53 Mechanical Ventilator 100 07/30/20 02:15 32 114/53 Mechanical Ventilator 100 07/30/20 02:00 122/52 07/30/20 02:00 31 118/52 Mechanical Ventilator 100 07/30/20 02:00 31 118/52 100 07/30/20 01:45 29 117/51 Mechanical Ventilator 100 07/30/20 01:45 29 117/51 Mechanical Ventilator 100 07/30/20 01:30 22 122/52 Non-Rebreather 100 07/30/20 01:30 31 126/50 Mechanical Ventilator 100 07/30/20 01:15 82 31 139/53 (81) 86 07/30/20 01:15 32 122/52 Mechanical Ventilator 100 07/30/20 01:15 32 122/52 Mechanical Ventilator 100 07/30/20 01:11 81 31 152/52 (85) 85 07/30/20 01:00 152/52 07/30/20 01:00 31 138/49 Mechanical Ventilator 100 07/30/20 01:00 31 138/49 Mechanical Ventilator 100 07/30/20 01:00 96 24 85/51 (62) 92 07/30/20 00:45 25 85/51 Mechanical Ventilator 100 07/30/20 00:45 25 85/51 Mechanical Ventilator 100 07/30/20 00:45 97 26 80/46 (57) 89 07/30/20 00:31 97 26 82/39 (53) 88 07/30/20 00:30 96 26 77/45 (56) 87 07/30/20 00:15 24 105/50 Mechanical Ventilator 100 07/30/20 00:15 98 27 86/42 (57) 89 07/30/20 00:00 101 07/30/20 00:00 100 07/30/20 00:00 86/42 07/30/20 00:00 98.0 103 24 88/50 (63) 93 20 00:00 Mechanical Ventilator 07/30/20 00:00 103 24 88/50 (63) 93 20 23:45 25 89/50 Mechanical Ventilator 100 2020 23:45 25 88/50 Mechanical Ventilator 100 2020 23:45 102 25 88/48 (61) 92 20 23:30 102 26 88/45 (59) 90 20 23:18 80/45 2020 23:15 104 26 85/49 (61) 92 20 23:00 104 27 87/43 (58) 90 07/29/20 22:45 27 87/43 Mechanical Ventilator 100 07/29/20 22:45 27 87/43 Mechanical Ventilator 100 20 22:45 107 28 86/52 (63) 91 20 22:30 109 30 84/46 (59) 91 07/29/20 22:30 106 28 100 07/29/20 22:15 113 34 89/50 (63) 92 20 22:00 120 45 106/53 (70) 93 20 21:49 116 48 132/74 (93) 91 2020 21:45 107 31 81/54 (63) 89 2020 21:45 45 132/74 Mechanical Ventilator 100 20 21:45 45 132/74 Mechanical Ventilator 100 20 21:15 124 46 124/79 (94) 85 2020 21:00 122 38 117/78 (91) 85 20/20 20:45 107 31 81/54 (63) 89 20/20 20:45 45 117/78 Mechanical Ventilator 100 2020 20:45 22 102/60 Mechanical Ventilator 100 2020 20:37 105 31 78/54 (62) 89 20/20 20:30 31 78/54 Mechanical Ventilator 100 20/20 20:30 26 85/49 Mechanical Ventilator 100 20/20 20:30 107 28 73/50 (58) 93 2020 20:22 112 32 76/53 (61) 96 2020 20:15 31 76/53 Mechanical Ventilator 100 12/20/20 20:15 30 117/78 Mechanical Ventilator 100 20/20 20:15 98.1 117 31 69/51 (57) 96 20/20 20:00 100 20/20 20:00 120 20/20 20:00 35 103/72 Mechanical Ventilator 100 20/20 20:00 35 100/60 Mechanical Ventilator 100 07/29/20 20:00 Mechanical Ventilator 20 20:00 123 36 103/72 (82) 89 20/20 19:45 40 90/61 Mechanical Ventilator 100 20/20 19:45 34 100/61 Mechanical Ventilator 100.0 100 20/20 19:30 35 103/72 Mechanical Ventilator 100 20/20 19:17 134 48 100 20/20 19:16 72 Mechanical Ventilator 100 20/20 19:15 38 83/60 Mechanical Ventilator 100 2020 19:00 25 135/60 Mechanical Ventilator 100 20 19:00 45 91/60 Mechanical Ventilator 100 20 18:40 137 39 182/112 78 07/29/20 18:30 130 38 183/112 (135) 86 07/29/20 18:10 130 33 151/83 98 20/20 18:00 127 37 120/76 (91) 92 20 17:45 122 29 151/83 (105) 92 20 17:37 158 26 97 Mechanical Ventilator 60.0 100 20 17:34 146 172/95 2020 17:30 159 23 146/102 (117) 92 20 17:29 158 23 100 20/20 17:15 150 28 172/95 (120) 97 20/20 17:00 152 25 169/116 (133) 96 2020 16:30 97.8 159 23 183/17 (72) 92 20 16:00 48 20 16:00 100 20 16:00 Mechanical Ventilator 07/29/20 15:30 90 20 15:09 84 53 94 100 07/29/20 12:00 100 07/29/20 12:00 Bi-pap 07/29/20 12:00 98.1 99 30 109/71 (84) 94 07/29/20 11:43 97 07/29/20 11:20 97 47 115/71 96 07/29/20 11:14 107 40 95 100 07/29/20 08:00 Bi-pap 07/29/20 08:00 100 07/29/20 08:00 98.2 89 30 115/66 (82) 96 Intake and Output 07/29/20 07/30/20 19:00 07:00 Intake Total 1214.560 ml Output Total 760 ml Balance 454.560 ml IV Total 1214.560 ml Output Urine Total 760 ml # Bowel Movements 3 3 Laboratory Tests 07/29/20 10:43: Arterial Blood pH 7.482H, Arterial Blood Partial Pressure CO2 38.5, Arterial Blood Partial Pressure O2 48.3*L, Arterial Blood HCO3 28.2H, Arterial Blood Oxygen Saturation 86.6*L, Arterial Blood Base Excess 4.5H, Francisco Test Positive 07/29/20 11:13: POC Whole Blood Glucose [Pending] 07/29/20 15:37: Arterial Blood pH 7.436, Arterial Blood Partial Pressure CO2 38.4, Arterial Blood Partial Pressure O2 66.8L, Arterial Blood HCO3 25.3, Arterial Blood Oxygen Saturation 93.5L, Arterial Blood Base Excess 1.2, Francisco Test Positive 07/29/20 17:19: Arterial Blood pH 7.244*L, Arterial Blood Partial Pressure CO2 62.0*H, Arterial Blood Partial Pressure O2 128.9H, Arterial Blood HCO3 26.2H, Arterial Blood Oxygen Saturation 97.7, Arterial Blood Base Excess -2.6L, Francisco Test Positive 07/29/20 20:55: Arterial Blood pH 7.362, Arterial Blood Partial Pressure CO2 48.5H, Arterial Blood Partial Pressure O2 49.1*L, Arterial Blood HCO3 26.9H, Arterial Blood Oxygen Saturation 81.9*L, Arterial Blood Base Excess 0.8, Francisco Test Positive 07/30/20 01:56: Arterial Blood pH 7.377, Arterial Blood Partial Pressure CO2 48.0H, Arterial Blood Partial Pressure O2 46.1*L, Arterial Blood HCO3 27.6H, Arterial Blood Oxygen Saturation 80.0*L, Arterial Blood Base Excess 1.7, Francisco Test Positive 07/30/20 03:52: White Blood Count 23.2*H, Red Blood Count 4.53L, Hemoglobin 13.7L, Hematocrit 40.3L, Mean Corpuscular Volume 89, Mean Corpuscular Hemoglobin 30.3, Mean Corpu scular Hemoglobin Concent 34.0, Red Cell Distribution Width 13.8, Platelet Count 141L, Mean Platelet Volume 5.9L, Neutrophils (%) (Auto) , Lymphocytes (%) (Auto) , Monocytes (%) (Auto) , Eosinophils (%) (Auto) , Basophils (%) (Auto) , Neutrophils % (Manual) [Pending], Lymphocytes % (Manual) [Pending], Platelet Estimate [Pending], Platelet Morphology [Pending], Sodium Level 138, Potassium Level 4.2, Chloride Level 105, Carbon Dioxide Level 30, Anion Gap 3L, Blood Urea Nitrogen 25H, Creatinine 0.8, Estimat Glomerular Filtration Rate > 60, Glucose Level 198H, Calcium Level 7.3L, Total Bilirubin 0.5, Aspartate Amino Transf (AST/SGOT) 25, Alanine Aminotransferase (ALT/SGPT) 24, Alkaline Phosphatase 142H , Troponin I 0.074H, Total Protein 6.0L, Albumin 1.7L, Globulin 4.3, Albumin/Globulin Ratio 0.4L, Triglycerides Level 162H Height (Feet): 5 Height (Inches): 6.00 Weight (Pounds): 172 Objective Current Medications Medications (Trade) Dose Ordered Sig/Dalia Route PRN Reason Start Time Stop Time Status Last Admin Dose Admin Acetaminophen (Tylenol) 500 mg Q6H PRN ORAL Mild Pain (Pain Scale 1-3) 07/21/20 08:15 08/20/20 08:14 07/28/20 09:14 Ascorbic Acid (Vitamin C) 500 mg TWICE A DAY ORAL 07/23/20 09:00 08/22/20 08:59 07/29/20 09:33 Ceftriaxone Sodium 1 gm/ Dextrose 55 ml @ 110 mls/hr Q24H IVPB 07/27/20 12:15 08/03/20 12:14 07/29/20 11:30 Chlorhexidine Gluconate (Hiral-Hex 2%) 1 applic DAILY@2000 TOPIC 07/30/20 20:00 10/28/20 19:59 Dexamethasone Sodium Phosphate (Decadron 4mg/ml vial) 6 mg DAILY IVP 07/22/20 09:00 07/30/20 12:00 07/29/20 09:33 Dextrose (Dextrose 50%) 25 ml Q30M PRN IV Hypoglycemia 07/21/20 13:30 10/19/20 13:29 Dextrose (Dextrose 50%) 50 ml Q30M PRN IV Hypoglycemia 07/21/20 13:30 10/19/20 13:29 Dopamine HCl/ Dextrose 250 ml @ 0 mls/hr Q24H IV 07/29/20 23:00 08/01/20 22:58 07/29/20 23:18 Enoxaparin Sodium (Lovenox) 40 mg DAILY SUBQ 07/22/20 09:00 10/20/20 08:59 07/28/20 09:12 Fentanyl Citrate 2500 mcg/Sodium Chloride 250 ml @ 1 mls/hr Q24H IV 07/29/20 17:30 07/31/20 17:29 07/29/20 19:45 Guaifenesin (Robitussin) 200 mg Q4H PRN ORAL For Cough 07/25/20 12:30 10/23/20 12:29 07/29/20 09:32 Insulin Aspart (NovoLOG) BEFORE MEALS AND HS SUBQ 07/21/20 16:30 10/19/20 16:29 07/30/20 06:27 Insulin Aspart (NovoLOG) 8 units TIWM SUBQ 07/29/20 12:00 10/19/20 16:59 Insulin Detemir (Levemir) 8 units EVERY 12 HOURS SUBQ 07/23/20 09:00 10/19/20 20:59 07/29/20 21:55 Lorazepam (Ativan 2mg/ml 1ml) 1 mg Q4H PRN IV For Anxiety 07/29/20 17:15 08/05/20 17:14 07/30/20 04:05 Mirtazapine (Remeron) 15 mg BEDTIME ORAL 07/22/20 21:00 10/20/20 20:59 07/28/20 21:07 Pantoprazole (Protonix) 40 mg DAILY IVP 07/30/20 09:00 08/29/20 08:59 Propofol 100 ml @ 2.341 mls/ hr Q12H IV 07/29/20 19:00 07/31/20 18:59 07/30/20 00:15 Remdesivir 100 mg/ Sodium Chloride 250 ml @ 250 mls/hr Q24H IV 07/29/20 17:15 07/27/21 18:00 UNV Sodium Chloride 1,000 ml @ 75 mls/hr [id number] IV 07/29/20 22:30 08/28/20 22:29 07/30/20 06:28 Assessment/Plan Problem List: (1) Pneumonia due to COVID-19 virus ICD Codes: U07.1 - COVID-19; J12.89 - Other viral pneumonia SNOMED: 876461747733347055 (2) Hyperglycemia due to type 2 diabetes mellitus ICD Codes: E11.65 - Type 2 diabetes mellitus with hyperglycemia; J12.89 - Other viral pneumonia SNOMED: 305346495292370, [id number] (3) Acute respiratory failure with hypoxia ICD Codes: J96.01 - Acute respiratory failure with hypoxia; J12.89 - Other viral pneumonia SNOMED: 94233407, 395828185 Status: progressing Assessment/Plan: continue Levemir 8 units bid continue Novolog 8 units ac tid + sliding scale hypoglycemia protocol in order Sandor Briceño MD Jul 30, 2020 07:49
--- NOTE | 2020-07-30 07:56 | NUR ---
NURSE NOTES: Endorsed to CHARMAINE roger that pt has castillo $1052.00 at bedside. also advised to charmaine roger to submit the castillo to AM screw supervisor to keep in safe place in the hospital and she agreed
--- NOTE | 2020-07-30 07:56 | NUR ---
NURSE HAND-OFF REPORT: Latest Vital Signs: Temperature 99.0 , Pulse 85 , B/P 125 /60 , Respiratory Rate 29 , O2 SAT 93 , Mechanical Ventilator, O2 Flow Rate . Vital Sign Comment: EKG Rhythm: Sinus Rhythm Rhythm change?: N MD Notified?: - MD Response: Latest Van Fall Score: 50 Fall Risk: High Risk Safety Measures: Call light Within Reach, Bed Alarm Zone 1, Side Rails Side Rails x2, Bed position Low and Locked. Fall Precautions: Patient Fall Education Report given to .
[2020-07-30] MEDS: Levemir Flexpen SUBQ SCH ×2 (08:08→21:22)
[2020-07-30] MEDS: Ascorbic Acid 500mg tab ORAL SCH ×2 (08:08→17:49)
[2020-07-30] MEDS: Pantoprazole Inj IVP SCH (08:08)
[2020-07-30] MEDS: Enoxaparin 40mg Inj SUBQ SCH (08:11)
--- NOTE | 2020-07-30 08:23 | NUR ---
RD ASSESSMENT & RECOMMENDATIONS SEE CARE ACTIVITY FOR COMPLETE ASSESSMENT DAILY ESTIMATED NEEDS: Needs based on DM, Critical care/ 68.9kg 22-28 kcals/kg 4757-2289 total kcals 1.2-2 g protein/kg 83-138 g total protein 25-30 mL/kg 3038-3293 total fluid mLs NUTRITION DIAGNOSIS: * Swallowing difficulty R/T respiratory failure as evidenced by s/p code blue on 07/29, orally intubated and sedated. * Altered nutrition related lab values R/T diabetes w/ hyperglycemia as evidenced by elev BGs and POC glu (493, 550 -> 198, 150), A1C of 10.2, U glu 4+, pt on Decadron. CURRENT TF: NPO PO DIET RECOMMENDATIONS: TUNNEL ELASTIC OPERATOR CHAINSTITCH eval post extubation ENTERAL NUTRITION RECOMMENDATIONS: Vital AF 1.2 @ 55ml/hr x 24 hrs to provide 1320ml, 1584kcal, 107g prot, 1070ml free water * With hemodynamic stability and when appropriate to feed, initiate Vital AF for critical care and carb control. * Initiate Vital AF 1.2 @ 25ml/hr x 6hrs, advance 10ml q 4-6 hrs as tolerated to goal rate * HOB over 30 degrees/ water flush of 180ml q 6hrs Without hemodynamic stability-> rec trophic feeding of Vital AF 1.2 @ 15ml/hr With Diprivan running @ 23.405ml/hr (provides 618kcal from lipid), rec Vital AF 1.2 @ goal rate of 35ml/hr x 24 hrs to provide 840ml, 1008kcal, 60g prot ADDITIONAL RECOMMENDATIONS: * Calibrated bedscale wt- fluctuating daily wts * Monitor for hypoglycemia while NPO * Monitor lytes, replete as needed * Monitor hemodynamic stability: on Dopamine @ 8mcg
--- NOTE | 2020-07-30 09:00 | NUR ---
NURSE NOTES: Patient stable at this time. No s/sx of pain or distress. Patient medicated.
[2020-07-30 10:21] LABS: PHOSPHORUS 3.3 MG/DL (2.5-4.9)
--- NOTE | 2020-07-30 10:34 | Infectious Diseases Prog Note ---
Assessment/Plan Assessment/Plan IMPRESSION: COVID-19 disease seems to be severe. Diabetes mellitus with hyperglycemia. Hypoxic respiratory failure Lymphocytopenia. Sinus tachycardia Leukocytosis Hypotension RECOMMENDATION: Continue dexamethasone Finished remdesivir course Change Rocephin to Zosyn Sputum culture Subjective ROS Limited/Unobtainable: Yes Constitutional: Reports: other - tranferred to ICU Respiratory: Reports: other - intubated last night because of respiratory failure Cardiovascular: Reports: other - Hypotensive started on Dopamine Allergies: Coded Allergies: No Known Allergies (Unverified , 07/21/20) Objective Last 24 Hour Vital Signs Date Time Temp Pulse Resp B/P (MAP) Pulse Ox O2 Delivery O2 Flow Rate FiO2 07/30/20 10:00 79 31 127/48 (74) 90 07/30/20 09:00 75 26 115/48 (70) 95 07/30/20 08:10 28 125/52 Endotracheal Tube 100 07/30/20 08:00 100 07/30/20 08:00 Mechanical Ventilator 07/30/20 08:00 97.8 71 27 125/52 (76) 93 07/30/20 08:00 73 07/30/20 07:00 125/60 07/30/20 06:30 29 135/60 Mechanical Ventilator 100 07/30/20 06:30 29 135/60 Mechanical Ventilator 100 07/30/20 06:15 85 30 91/41 (58) 93 07/30/20 06:00 74 29 98/41 (60) 98 07/30/20 06:00 80/45 07/30/20 05:45 87 33 104/52 (69) 95 07/30/20 05:30 74 29 95/42 (59) 97 07/30/20 05:30 32 104/52 Mechanical Ventilator 100 07/30/20 05:30 32 104/52 Mechanical Ventilator 100 07/30/20 05:15 95 28 114/57 (76) 91 07/30/20 05:00 114/57 07/30/20 05:00 92 34 128/46 (73) 85 07/30/20 04:45 94 25 118/52 (74) 89 07/30/20 04:35 89 29 104/52 94 07/30/20 04:30 99 31 114/53 (73) 88 07/30/20 04:30 31 118/52 Mechanical Ventilator 100 07/30/20 04:30 31 118/52 Mechanical Ventilator 100 07/30/20 04:15 104 34 110/54 (72) 87 07/30/20 04:05 112 42 158/53 (88) 90 07/30/20 04:05 112 42 154/77 89 07/30/20 04:00 100 07/30/20 04:00 73 07/30/20 04:00 Mechanical Ventilator 07/30/20 04:00 158/53 07/30/20 04:00 99.0 100 33 140/55 (83) 89 07/30/20 03:30 33 110/54 Mechanical Ventilator 100 07/30/20 03:30 33 110/54 Mechanical Ventilator 100 07/30/20 03:00 111/56 07/30/20 02:52 74 28 100 07/30/20 02:30 26 128/46 Mechanical Ventilator 100 07/30/20 02:30 26 128/46 Mechanical Ventilator 100 07/30/20 02:15 32 114/53 Mechanical Ventilator 100 07/30/20 02:15 32 114/53 Mechanical Ventilator 100 07/30/20 02:00 122/52 07/30/20 02:00 31 118/52 Mechanical Ventilator 100 07/30/20 02:00 31 118/52 100 07/30/20 01:45 29 117/51 Mechanical Ventilator 100 07/30/20 01:45 29 117/51 Mechanical Ventilator 100 07/30/20 01:30 22 122/52 Non-Rebreather 100 07/30/20 01:30 31 126/50 Mechanical Ventilator 100 07/30/20 01:15 82 31 139/53 (81) 86 07/30/20 01:15 32 122/52 Mechanical Ventilator 100 07/30/20 01:15 32 122/52 Mechanical Ventilator 100 07/30/20 01:11 81 31 152/52 (85) 85 07/30/20 01:00 152/52 07/30/20 01:00 31 138/49 Mechanical Ventilator 100 07/30/20 01:00 31 138/49 Mechanical Ventilator 100 07/30/20 01:00 96 24 85/51 (62) 92 07/30/20 00:45 25 85/51 Mechanical Ventilator 100 07/30/20 00:45 25 85/51 Mechanical Ventilator 100 07/30/20 00:45 97 26 80/46 (57) 89 07/30/20 00:31 97 26 82/39 (53) 88 07/30/20 00:30 96 26 77/45 (56) 87 07/30/20 00:15 24 105/50 Mechanical Ventilator 100 07/30/20 00:15 98 27 86/42 (57) 89 07/30/20 00:00 101 07/30/20 00:00 100 07/30/20 00:00 86/42 07/30/20 00:00 98.0 103 24 88/50 (63) 93 07/30/20 00:00 Mechanical Ventilator 07/30/20 00:00 103 24 88/50 (63) 93 07/29/20 23:45 25 89/50 Mechanical Ventilator 100 07/29/20 23:45 25 88/50 Mechanical Ventilator 100 07/29/20 23:45 102 25 88/48 (61) 92 07/29/20 23:30 102 26 88/45 (59) 90 07/29/20 23:18 80/45 07/29/20 23:15 104 26 85/49 (61) 92 07/29/20 23:00 104 27 87/43 (58) 90 07/29/20 22:45 27 87/43 Mechanical Ventilator 100 07/29/20 22:45 27 87/43 Mechanical Ventilator 100 07/29/20 22:45 107 28 86/52 (63) 91 07/29/20 22:30 109 30 84/46 (59) 91 07/29/20 22:30 106 28 100 07/29/20 22:15 113 34 89/50 (63) 92 07/29/20 22:00 120 45 106/53 (70) 93 07/29/20 21:49 116 48 132/74 (93) 91 07/29/20 21:45 107 31 81/54 (63) 89 07/29/20 21:45 45 132/74 Mechanical Ventilator 100 07/29/20 21:45 45 132/74 Mechanical Ventilator 100 07/29/20 21:15 124 46 124/79 (94) 85 20 21:00 122 38 117/78 (91) 85 2020 20:45 107 31 81/54 (63) 89 20 20:45 45 117/78 Mechanical Ventilator 100 12/20/20 20:45 22 102/60 Mechanical Ventilator 100 1220/20 20:37 105 31 78/54 (62) 89 20/20 20:30 31 78/54 Mechanical Ventilator 100 20/20 20:30 26 85/49 Mechanical Ventilator 100 1220/20 20:30 107 28 73/50 (58) 93 20/20 20:22 112 32 76/53 (61) 96 20/20 20:15 31 76/53 Mechanical Ventilator 100 20/20 20:15 30 117/78 Mechanical Ventilator 100 20/20 20:15 98.1 117 31 69/51 (57) 96 20/20 20:00 100 20/20 20:00 120 07/29/20 20:00 35 103/72 Mechanical Ventilator 100 20/20 20:00 35 100/60 Mechanical Ventilator 100 20/20 20:00 Mechanical Ventilator 20/20 20:00 123 36 103/72 (82) 89 20/20 19:45 40 90/61 Mechanical Ventilator 100 20 19:45 34 100/61 Mechanical Ventilator 100.0 100 20/20 19:30 35 103/72 Mechanical Ventilator 100 20/20 19:17 134 48 100 20/20 19:16 72 Mechanical Ventilator 100 07/29/20 19:15 38 83/60 Mechanical Ventilator 100 20/20 19:00 25 135/60 Mechanical Ventilator 100 20/20 19:00 45 91/60 Mechanical Ventilator 100 20/20 18:40 137 39 182/112 78 20/20 18:30 130 38 183/112 (135) 86 20/20 18:10 130 33 151/83 98 20/20 18:00 127 37 120/76 (91) 92 20/20 17:45 122 29 151/83 (105) 92 20/20 17:37 158 26 97 Mechanical Ventilator 60.0 100 20/20 17:34 146 172/95 20/20 17:30 159 23 146/102 (117) 92 20/20 17:29 158 23 100 20/20 17:15 150 28 172/95 (120) 97 20/20 17:00 152 25 169/116 (133) 96 07/29/20 16:30 97.8 159 23 183/17 (72) 92 07/29/20 16:00 48 07/29/20 16:00 100 07/29/20 16:00 Mechanical Ventilator 07/29/20 15:30 90 07/29/20 15:09 84 53 94 100 07/29/20 12:00 100 07/29/20 12:00 Bi-pap 07/29/20 12:00 98.1 99 30 109/71 (84) 94 07/29/20 11:43 97 07/29/20 11:20 97 47 115/71 96 07/29/20 11:14 107 40 95 100 Height (Feet): 5 Height (Inches): 6.00 Weight (Pounds): 172 HEENT: other - orally intubated Respiratory/Chest: other - on ventilator Cardiovascular: normal rate Abdomen: soft, non tender Extremities: no edema Neurologic/Psychiatric: other - sedated Laboratory Tests Test 07/29/20 10:43 07/29/20 11:13 07/29/20 15:37 07/29/20 17:19 Arterial Blood pH 7.482 (7.350-7.450) 7.436 (7.350-7.450) 7.244 (7.350-7.450) Arterial Blood Partial Pressure CO2 38.5 mmHg (35.0-45.0) 38.4 mmHg (35.0-45.0) 62.0 mmHg (35.0-45.0) *H Arterial Blood Partial Pressure O2 48.3 mmHg (75.0-100.0) 66.8 mmHg (75.0-100.0) L 128.9 mmHg (75.0-100.0) H Arterial Blood HCO3 28.2 mmol/L (22.0-26.0) H 25.3 mmol/L (22.0-26.0) 26.2 mmol/L (22.0-26.0) H Arterial Blood Oxygen Saturation 86.6 % (95-100) *L 93.5 % (95-100) L 97.7 % (95-100) Arterial Blood Base Excess 4.5 (-2-2) H 1.2 (-2-2) -2.6 (-2-2) L Francisco Test Positive Positive Positive POC Whole Blood Glucose Pending Test 07/29/20 20:55 07/30/20 01:56 07/30/20 03:52 Arterial Blood pH 7.362 (7.350-7.450) 7.377 (7.350-7.450) Arterial Blood Partial Pressure CO2 48.5 mmHg (35.0-45.0) H 48.0 mmHg (35.0-45.0) H Arterial Blood Partial Pressure O2 49.1 mmHg (75.0-100.0) 46.1 mmHg (75.0-100.0) Arterial Blood HCO3 26.9 mmol/L (22.0-26.0) H 27.6 mmol/L (22.0-26.0) H Arterial Blood Oxygen Saturation 81.9 % (95-100) *L 80.0 % (95-100) *L Arterial Blood Base Excess 0.8 (-2-2) 1.7 (-2-2) Francisco Test Positive Positive White Blood Count 23.2 K/UL (4.8-10.8) *H Red Blood Count 4.53 M/UL (4.70-6.10) L Hemoglobin 13.7 G/DL (14.2-18.0) L Hematocrit 40.3 % (42.0-52.0) L Mean Corpuscular Volume 89 FL (80-99) Mean Corpuscular Hemoglobin 30.3 PG (27.0-31.0) Mean Corpuscular Hemoglobin Concent 34.0 G/DL (32.0-36.0) Red Cell Distribution Width 13.8 % (11.6-14.8) Platelet Count 141 K/UL (150-450) L Mean Platelet Volume 5.9 FL (6.5-10.1) L Neutrophils (%) (Auto) % (45.0-75.0) Lymphocytes (%) (Auto) % (20.0-45.0) Monocytes (%) (Auto) % (1.0-10.0) Eosinophils (%) (Auto) % (0.0-3.0) Basophils (%) (Auto) % (0.0-2.0) Differential Total Cells Counted 100 Neutrophils % (Manual) 94 % (45-75) H Lymphocytes % (Manual) 4 % (20-45) L Monocytes % (Manual) 2 % (1-10) Eosinophils % (Manual) 0 % (0-3) Basophils % (Manual) 0 % (0-2) Band Neutrophils 0 % (0-8) Platelet Estimate Decreased L Platelet Morphology Normal Red Blood Cell Morphology Normal Sodium Level 138 MMOL/L (136-145) Potassium Level 4.2 MMOL/L (3.5-5.1) Chloride Level 105 MMOL/L (98-107) Carbon Dioxide Level 30 MMOL/L (21-32) Anion Gap 3 mmol/L (5-15) L Blood Urea Nitrogen 25 mg/dL (7-18) H Creatinine 0.8 MG/DL (0.55-1.30) Estimat Glomerular Filtration Rate > 60 mL/min (>60) Glucose Level 198 MG/DL (74-106) H Calcium Level 7.3 MG/DL (8.5-10.1) L Phosphorus Level 3.3 MG/DL (2.5-4.9) Magnesium Level 2.2 MG/DL (1.8-2.4) Total Bilirubin 0.5 MG/DL (0.2-1.0) Aspartate Amino Transf (AST/SGOT) 25 U/L (15-37) Alanine Aminotransferase (ALT/SGPT) 24 U/L (12-78) Alkaline Phosphatase 142 U/L (46-116) H Troponin I 0.074 ng/mL (0.000-0.056) Total Protein 6.0 G/DL (6.4-8.2) L Albumin 1.7 G/DL (3.4-5.0) L Globulin 4.3 g/dL Albumin/Globulin Ratio 0.4 (1.0-2.7) L Triglycerides Level 162 MG/DL (30-150) H Current Medications Medications (Trade) Dose Ordered Sig/Dalia Route PRN Reason Start Time Stop Time Status Last Admin Dose Admin Acetaminophen (Tylenol) 500 mg Q6H PRN ORAL Mild Pain (Pain Scale 1-3) 07/21/20 08:15 08/20/20 08:14 07/28/20 09:14 Ascorbic Acid (Vitamin C) 500 mg TWICE A DAY ORAL 07/23/20 09:00 08/22/20 08:59 07/29/20 09:33 Ceftriaxone Sodium 1 gm/ Dextrose 55 ml @ 110 mls/hr Q24H IVPB 07/27/20 12:15 08/03/20 12:14 07/29/20 11:30 Chlorhexidine Gluconate (Hiral-Hex 2%) 1 applic DAILY@2000 TOPIC 07/30/20 20:00 10/28/20 19:59 Dexamethasone Sodium Phosphate (Decadron 4mg/ml vial) 6 mg DAILY IVP 07/22/20 09:00 07/30/20 12:00 07/30/20 08:07 Dextrose (Dextrose 50%) 25 ml Q30M PRN IV Hypoglycemia 07/21/20 13:30 10/19/20 13:29 Dextrose (Dextrose 50%) 50 ml Q30M PRN IV Hypoglycemia 07/21/20 13:30 10/19/20 13:29 Dopamine HCl/ Dextrose 250 ml @ 0 mls/hr Q24H IV 07/29/20 23:00 08/01/20 22:58 07/29/20 23:18 Enoxaparin Sodium (Lovenox) 40 mg DAILY SUBQ 07/22/20 09:00 10/20/20 08:59 07/30/20 08:11 Fentanyl Citrate 2500 mcg/Sodium Chloride 250 ml @ 1 mls/hr Q24H IV 07/29/20 17:30 07/31/20 17:29 07/29/20 19:45 Guaifenesin (Robitussin) 200 mg Q4H PRN ORAL For Cough 07/25/20 12:30 10/23/20 12:29 07/29/20 09:32 Insulin Aspart (NovoLOG) BEFORE MEALS AND HS SUBQ 07/21/20 16:30 10/19/20 16:29 07/30/20 06:27 Insulin Aspart (NovoLOG) 8 units TIWM SUBQ 07/29/20 12:00 10/19/20 16:59 Insulin Detemir (Levemir) 8 units EVERY 12 HOURS SUBQ 07/23/20 09:00 10/19/20 20:59 07/29/20 21:55 Lorazepam (Ativan 2mg/ml 1ml) 1 mg Q4H PRN IV For Anxiety 07/29/20 17:15 08/05/20 17:14 07/30/20 04:05 Mirtazapine (Remeron) 15 mg BEDTIME ORAL 07/22/20 21:00 10/20/20 20:59 07/28/20 21:07 Pantoprazole (Protonix) 40 mg DAILY IVP 07/30/20 09:00 08/29/20 08:59 07/30/20 08:08 Propofol 100 ml @ 2.341 mls/ hr Q12H IV 07/29/20 19:00 07/31/20 18:59 07/30/20 08:10 Sodium Chloride 1,000 ml @ 75 mls/hr [id number] IV 07/29/20 22:30 08/28/20 22:29 07/30/20 06:28 Christian Caraballo MD Jul 30, 2020 10:34
--- NOTE | 2020-07-30 11:08 | Diagnostic Imaging Report ---
Indication: Post nasogastric tube placement Technique: Supine view of the abdomen Comparison: none Findings: Nasogastric tube tip projects at the level of the gastric antrum. Right femoral central venous catheter has its tip at the level of the common iliac vein. Single mildly dilated small bowel loop is seen in the left upper quadrant. The remainder of the bowel gas is unremarkable. The included lung bases demonstrate bilateral infiltrates Impression: Satisfactory nasogastric intubation. ICU charge nurse Mercedes notified at the time of interpretation Satisfactory right groin central venous catheter Nonspecific prominent left upper quadrant small bowel loop. Otherwise no acute process
--- NOTE | 2020-07-30 11:10 | Diagnostic Imaging Report ---
Indication: Shortness of breath Technique: One view of the chest Comparison: 07/29/2020 Findings: Extensive bilateral infiltrates are again demonstrated. Stable satisfactory position of endotracheal tube. Interim satisfactory placement of orogastric tube. Impression: Satisfactory orogastric tube placement. 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
--- NOTE | 2020-07-30 11:45 | NUR ---
NURSE NOTES: Patient RASS -2 on 10mcg on Propofol. VSS.
--- NOTE | 2020-07-30 11:50 | NUR ---
NURSE NOTES: Patient stable at this time. No s/sx of pain or distress.
--- NOTE | 2020-07-30 12:02 | General Progress Note ---
Subjective ROS Limited/Unobtainable: Yes Allergies: Coded Allergies: No Known Allergies (Unverified , 07/21/20) Objective Last 24 Hour Vital Signs Date Time Temp Pulse Resp B/P (MAP) Pulse Ox O2 Delivery O2 Flow Rate FiO2 07/30/20 10:00 79 31 127/48 (74) 90 07/30/20 09:00 75 26 115/48 (70) 95 07/30/20 08:10 28 125/52 Endotracheal Tube 100 07/30/20 08:00 100 07/30/20 08:00 Mechanical Ventilator 07/30/20 08:00 97.8 71 27 125/52 (76) 93 07/30/20 08:00 73 07/30/20 07:00 125/60 07/30/20 06:30 29 135/60 Mechanical Ventilator 100 07/30/20 06:30 29 135/60 Mechanical Ventilator 100 07/30/20 06:15 85 30 91/41 (58) 93 07/30/20 06:00 74 29 98/41 (60) 98 07/30/20 06:00 80/45 07/30/20 05:45 87 33 104/52 (69) 95 07/30/20 05:30 74 29 95/42 (59) 97 07/30/20 05:30 32 104/52 Mechanical Ventilator 100 07/30/20 05:30 32 104/52 Mechanical Ventilator 100 07/30/20 05:15 95 28 114/57 (76) 91 07/30/20 05:00 114/57 07/30/20 05:00 92 34 128/46 (73) 85 07/30/20 04:45 94 25 118/52 (74) 89 07/30/20 04:35 89 29 104/52 94 07/30/20 04:30 99 31 114/53 (73) 88 07/30/20 04:30 31 118/52 Mechanical Ventilator 100 07/30/20 04:30 31 118/52 Mechanical Ventilator 100 07/30/20 04:15 104 34 110/54 (72) 87 07/30/20 04:05 112 42 158/53 (88) 90 07/30/20 04:05 112 42 154/77 89 07/30/20 04:00 100 07/30/20 04:00 73 07/30/20 04:00 Mechanical Ventilator 07/30/20 04:00 158/53 07/30/20 04:00 99.0 100 33 140/55 (83) 89 07/30/20 03:30 33 110/54 Mechanical Ventilator 100 07/30/20 03:30 33 110/54 Mechanical Ventilator 100 07/30/20 03:00 111/56 07/30/20 02:52 74 28 100 07/30/20 02:30 26 128/46 Mechanical Ventilator 100 07/30/20 02:30 26 128/46 Mechanical Ventilator 100 07/30/20 02:15 32 114/53 Mechanical Ventilator 100 07/30/20 02:15 32 114/53 Mechanical Ventilator 100 07/30/20 02:00 122/52 07/30/20 02:00 31 118/52 Mechanical Ventilator 100 07/30/20 02:00 31 118/52 100 07/30/20 01:45 29 117/51 Mechanical Ventilator 100 07/30/20 01:45 29 117/51 Mechanical Ventilator 100 07/30/20 01:30 22 122/52 Non-Rebreather 100 07/30/20 01:30 31 126/50 Mechanical Ventilator 100 07/30/20 01:15 82 31 139/53 (81) 86 07/30/20 01:15 32 122/52 Mechanical Ventilator 100 07/30/20 01:15 32 122/52 Mechanical Ventilator 100 07/30/20 01:11 81 31 152/52 (85) 85 07/30/20 01:00 152/52 07/30/20 01:00 31 138/49 Mechanical Ventilator 100 07/30/20 01:00 31 138/49 Mechanical Ventilator 100 07/30/20 01:00 96 24 85/51 (62) 92 07/30/20 00:45 25 85/51 Mechanical Ventilator 100 07/30/20 00:45 25 85/51 Mechanical Ventilator 100 07/30/20 00:45 97 26 80/46 (57) 89 07/30/20 00:31 97 26 82/39 (53) 88 07/30/20 00:30 96 26 77/45 (56) 87 07/30/20 00:15 24 105/50 Mechanical Ventilator 100 07/30/20 00:15 98 27 86/42 (57) 89 07/30/20 00:00 101 07/30/20 00:00 100 12/21/20 00:00 86/42 07/30/20 00:00 98.0 103 24 88/50 (63) 93 20 00:00 Mechanical Ventilator 07/30/20 00:00 103 24 88/50 (63) 93 20 23:45 25 89/50 Mechanical Ventilator 100 07/29/20 23:45 25 88/50 Mechanical Ventilator 100 20 23:45 102 25 88/48 (61) 92 07/29/20 23:30 102 26 88/45 (59) 90 20 23:18 80/45 07/29/20 23:15 104 26 85/49 (61) 92 07/29/20 23:00 104 27 87/43 (58) 90 07/29/20 22:45 27 87/43 Mechanical Ventilator 100 07/29/20 22:45 27 87/43 Mechanical Ventilator 100 07/29/20 22:45 107 28 86/52 (63) 91 07/29/20 22:30 109 30 84/46 (59) 91 07/29/20 22:30 106 28 100 07/29/20 22:15 113 34 89/50 (63) 92 07/29/20 22:00 120 45 106/53 (70) 93 07/29/20 21:49 116 48 132/74 (93) 91 07/29/20 21:45 107 31 81/54 (63) 89 20 21:45 45 132/74 Mechanical Ventilator 100 07/29/20 21:45 45 132/74 Mechanical Ventilator 100 07/29/20 21:15 124 46 124/79 (94) 85 20 21:00 122 38 117/78 (91) 85 20/20 20:45 107 31 81/54 (63) 89 2020 20:45 45 117/78 Mechanical Ventilator 100 07/29/20 20:45 22 102/60 Mechanical Ventilator 100 20 20:37 105 31 78/54 (62) 89 20/20 20:30 31 78/54 Mechanical Ventilator 100 2020 20:30 26 85/49 Mechanical Ventilator 100 2020 20:30 107 28 73/50 (58) 93 2020 20:22 112 32 76/53 (61) 96 20 20:15 31 76/53 Mechanical Ventilator 100 07/29/20 20:15 30 117/78 Mechanical Ventilator 100 20 20:15 98.1 117 31 69/51 (57) 96 20 20:00 100 20/20 20:00 120 20 20:00 35 103/72 Mechanical Ventilator 100 20 20:00 35 100/60 Mechanical Ventilator 100 20 20:00 Mechanical Ventilator 07/29/20 20:00 123 36 103/72 (82) 89 2020 19:45 40 90/61 Mechanical Ventilator 100 07/29/20 19:45 34 100/61 Mechanical Ventilator 100.0 100 20 19:30 35 103/72 Mechanical Ventilator 100 20 19:17 134 48 100 20/20 19:16 72 Mechanical Ventilator 100 20 19:15 38 83/60 Mechanical Ventilator 100 20 19:00 25 135/60 Mechanical Ventilator 100 20 19:00 45 91/60 Mechanical Ventilator 100 20 18:40 137 39 182/112 78 07/29/20 18:30 130 38 183/112 (135) 86 07/29/20 18:10 130 33 151/83 98 07/29/20 18:00 127 37 120/76 (91) 92 20 17:45 122 29 151/83 (105) 92 07/29/20 17:37 158 26 97 Mechanical Ventilator 60.0 100 07/29/20 17:34 146 172/95 07/29/20 17:30 159 23 146/102 (117) 92 07/29/20 17:29 158 23 100 07/29/20 17:15 150 28 172/95 (120) 97 20 17:00 152 25 169/116 (133) 96 20 16:30 97.8 159 23 183/17 (72) 92 07/29/20 16:00 48 20 16:00 100 07/29/20 16:00 Mechanical Ventilator 07/29/20 15:30 90 07/29/20 15:09 84 53 94 100 Intake and Output 07/29/20 07/30/20 19:00 07:00 Intake Total 1214.560 ml Output Total 760 ml Balance 454.560 ml IV Total 1214.560 ml Output Urine Total 760 ml # Bowel Movements 3 3 Laboratory Tests 07/29/20 15:37: Arterial Blood pH 7.436, Arterial Blood Partial Pressure CO2 38.4, Arterial Blood Partial Pressure O2 66.8L, Arterial Blood HCO3 25.3, Arterial Blood Oxygen Saturation 93.5L, Arterial Blood Base Excess 1.2, Francisco Test Positive 07/29/20 17:19: Arterial Blood pH 7.244*L, Arterial Blood Partial Pressure CO2 62.0*H, Arterial Blood Partial Pressure O2 128.9H, Arterial Blood HCO3 26.2H, Arterial Blood Oxygen Saturation 97.7, Arterial Blood Base Excess -2.6L, Francisco Test Positive 07/29/20 20:55: Arterial Blood pH 7.362, Arterial Blood Partial Pressure CO2 48.5H, Arterial Blood Partial Pressure O2 49.1*L, Arterial Blood HCO3 26.9H, Arterial Blood Oxygen Saturation 81.9*L, Arterial Blood Base Excess 0.8, Francisco Test Positive 07/30/20 01:56: Arterial Blood pH 7.377, Arterial Blood Partial Pressure CO2 48.0H, Arterial Blood Partial Pressure O2 46.1*L, Arterial Blood HCO3 27.6H, Arterial Blood Oxygen Saturation 80.0*L, Arterial Blood Base Excess 1.7, Francisco Test Positive 07/30/20 03:52: White Blood Count 23.2*H, Red Blood Count 4.53L, Hemoglobin 13.7L, Hematocrit 40.3L, Mean Corpuscular Volume 89, Mean Corpuscular Hemoglobin 30.3, Mean Corpuscular Hemoglobin Concent 34.0, Red Cell Distribution Width 13.8, Platelet Count 141L, Mean Platelet Volume 5.9L, Neutrophils (%) (Auto) , Lymphocytes (%) (Auto) , Monocytes (%) (Auto) , Eosinophils (%) (Auto) , Basophils (%) (Auto) , Differential Total Cells Counted 100, Neutrophils % (Manual) 94H, Lymphocytes % (Manual) 4L, Monocytes % (Manual) 2, Eosinophils % (Manual) 0, Basophils % (Manual) 0, Band Neutrophils 0, Platelet Estimate DecreasedL, Platelet Morpholo gy Normal, Red Blood Cell Morphology Normal, Sodium Level 138, Potassium Level 4.2, Chloride Level 105, Carbon Dioxide Level 30, Anion Gap 3L, Blood Urea Nitrogen 25H, Creatinine 0.8, Estimat Glomerular Filtration Rate > 60, Glucose Level 198H, Calcium Level 7.3L, Phosphorus Level 3.3, Magnesium Level 2.2, Total Bilirubin 0.5, Aspartate Amino Transf (AST/SGOT) 25, Alanine Aminotransferase (ALT/SGPT) 24, Alkaline Phosphatase 142H, Troponin I 0.074H, Total Protein 6.0L, Albumin 1.7L, Globulin 4.3, Albumin/Globulin Ratio 0.4L, Triglycerides Level 162H Height (Feet): 5 Height (Inches): 6.00 Weight (Pounds): 172 Assessment/Plan Problem List: (1) Acute respiratory failure with hypoxia ICD Codes: J96.01 - Acute respiratory failure with hypoxia; J12.89 - Other viral pneumonia SNOMED: 12226435, 309256822 (2) Pneumonia due to COVID-19 virus ICD Codes: U07.1 - COVID-19; J12.89 - Other viral pneumonia SNOMED: 975034642352341649 (3) Hyperglycemia due to type 2 diabetes mellitus ICD Codes: E11.65 - Type 2 diabetes mellitus with hyperglycemia; J12.89 - Other viral pneumonia SNOMED: 348172564045941, [id number] Status: progressing Assessment/Plan: covid positive pna intubated resp failure afebrile getting worse niddm Milagro Miller MD Jul 30, 2020 12:02
--- NOTE | 2020-07-30 12:13 | Pulmonology Progress Note ---
Subjective ROS Limited/Unobtainable: Yes Interval Events: s/p intubation, sedation, now in ICU Constitutional: Reports: other - tranferred to ICU HEENT: Repors: no symptoms Respiratory: Reports: no symptoms, dry cough Cardiovascular: Reports: no symptoms; Denies: chest pain, palpitations Gastrointestinal/Abdominal: Reports: no symptoms Musculoskeletal: Reports: other - legs cramps Allergies: Coded Allergies: No Known Allergies (Unverified , 07/21/20) All Systems: reviewed and negative except above Objective Last 24 Hour Vital Signs Date Time Temp Pulse Resp B/P (MAP) Pulse Ox O2 Delivery O2 Flow Rate FiO2 07/30/20 10:00 79 31 127/48 (74) 90 07/30/20 09:00 75 26 115/48 (70) 95 07/30/20 08:10 28 125/52 Endotracheal Tube 100 07/30/20 08:00 100 07/30/20 08:00 Mechanical Ventilator 07/30/20 08:00 97.8 71 27 125/52 (76) 93 07/30/20 08:00 73 07/30/20 07:00 125/60 07/30/20 06:30 29 135/60 Mechanical Ventilator 100 07/30/20 06:30 29 135/60 Mechanical Ventilator 100 07/30/20 06:15 85 30 91/41 (58) 93 07/30/20 06:00 74 29 98/41 (60) 98 07/30/20 06:00 80/45 07/30/20 05:45 87 33 104/52 (69) 95 07/30/20 05:30 74 29 95/42 (59) 97 07/30/20 05:30 32 104/52 Mechanical Ventilator 100 07/30/20 05:30 32 104/52 Mechanical Ventilator 100 07/30/20 05:15 95 28 114/57 (76) 91 07/30/20 05:00 114/57 07/30/20 05:00 92 34 128/46 (73) 85 07/30/20 04:45 94 25 118/52 (74) 89 07/30/20 04:35 89 29 104/52 94 07/30/20 04:30 99 31 114/53 (73) 88 07/30/20 04:30 31 118/52 Mechanical Ventilator 100 07/30/20 04:30 31 118/52 Mechanical Ventilator 100 07/30/20 04:15 104 34 110/54 (72) 87 07/30/20 04:05 112 42 158/53 (88) 90 07/30/20 04:05 112 42 154/77 89 07/30/20 04:00 100 07/30/20 04:00 73 07/30/20 04:00 Mechanical Ventilator 07/30/20 04:00 158/53 07/30/20 04:00 99.0 100 33 140/55 (83) 89 07/30/20 03:30 33 110/54 Mechanical Ventilator 100 07/30/20 03:30 33 110/54 Mechanical Ventilator 100 07/30/20 03:00 111/56 07/30/20 02:52 74 28 100 07/30/20 02:30 26 128/46 Mechanical Ventilator 100 07/30/20 02:30 26 128/46 Mechanical Ventilator 100 07/30/20 02:15 32 114/53 Mechanical Ventilator 100 07/30/20 02:15 32 114/53 Mechanical Ventilator 100 07/30/20 02:00 122/52 07/30/20 02:00 31 118/52 Mechanical Ventilator 100 07/30/20 02:00 31 118/52 100 07/30/20 01:45 29 117/51 Mechanical Ventilator 100 07/30/20 01:45 29 117/51 Mechanical Ventilator 100 07/30/20 01:30 22 122/52 Non-Rebreather 100 07/30/20 01:30 31 126/50 Mechanical Ventilator 100 07/30/20 01:15 82 31 139/53 (81) 86 07/30/20 01:15 32 122/52 Mechanical Ventilator 100 07/30/20 01:15 32 122/52 Mechanical Ventilator 100 07/30/20 01:11 81 31 152/52 (85) 85 07/30/20 01:00 152/52 07/30/20 01:00 31 138/49 Mechanical Ventilator 100 07/30/20 01:00 31 138/49 Mechanical Ventilator 100 07/30/20 01:00 96 24 85/51 (62) 92 07/30/20 00:45 25 85/51 Mechanical Ventilator 100 07/30/20 00:45 25 85/51 Mechanical Ventilator 100 07/30/20 00:45 97 26 80/46 (57) 89 07/30/20 00:31 97 26 82/39 (53) 88 07/30/20 00:30 96 26 77/45 (56) 87 07/30/20 00:15 24 105/50 Mechanical Ventilator 100 07/30/20 00:15 98 27 86/42 (57) 89 07/30/20 00:00 101 07/30/20 00:00 100 07/30/20 00:00 86/42 07/30/20 00:00 98.0 103 24 88/50 (63) 93 07/30/20 00:00 Mechanical Ventilator 07/30/20 00:00 103 24 88/50 (63) 93 07/29/20 23:45 25 89/50 Mechanical Ventilator 100 07/29/20 23:45 25 88/50 Mechanical Ventilator 100 07/29/20 23:45 102 25 88/48 (61) 92 07/29/20 23:30 102 26 88/45 (59) 90 07/29/20 23:18 80/45 07/29/20 23:15 104 26 85/49 (61) 92 07/29/20 23:00 104 27 87/43 (58) 90 07/29/20 22:45 27 87/43 Mechanical Ventilator 100 07/29/20 22:45 27 87/43 Mechanical Ventilator 100 07/29/20 22:45 107 28 86/52 (63) 91 07/29/20 22:30 109 30 84/46 (59) 91 07/29/20 22:30 106 28 100 07/29/20 22:15 113 34 89/50 (63) 92 07/29/20 22:00 120 45 106/53 (70) 93 07/29/20 21:49 116 48 132/74 (93) 91 07/29/20 21:45 107 31 81/54 (63) 89 07/29/20 21:45 45 132/74 Mechanical Ventilator 100 07/29/20 21:45 45 132/74 Mechanical Ventilator 100 07/29/20 21:15 124 46 124/79 (94) 85 20 21:00 122 38 117/78 (91) 85 20 20:45 107 31 81/54 (63) 89 07/29/20 20:45 45 117/78 Mechanical Ventilator 100 07/29/20 20:45 22 102/60 Mechanical Ventilator 100 12/20/20 20:37 105 31 78/54 (62) 89 1220/20 20:30 31 78/54 Mechanical Ventilator 100 1220/20 20:30 26 85/49 Mechanical Ventilator 100 1220/20 20:30 107 28 73/50 (58) 93 1220/20 20:22 112 32 76/53 (61) 96 20/20 20:15 31 76/53 Mechanical Ventilator 100 20/20 20:15 30 117/78 Mechanical Ventilator 100 20/20 20:15 98.1 117 31 69/51 (57) 96 20/20 20:00 100 20/20 20:00 120 20/20 20:00 35 103/72 Mechanical Ventilator 100 20/20 20:00 35 100/60 Mechanical Ventilator 100 20/20 20:00 Mechanical Ventilator 20/20 20:00 123 36 103/72 (82) 89 20/20 19:45 40 90/61 Mechanical Ventilator 100 20/20 19:45 34 100/61 Mechanical Ventilator 100.0 100 20/20 19:30 35 103/72 Mechanical Ventilator 100 20/20 19:17 134 48 100 20/20 19:16 72 Mechanical Ventilator 100 20/20 19:15 38 83/60 Mechanical Ventilator 100 20/20 19:00 25 135/60 Mechanical Ventilator 100 20/20 19:00 45 91/60 Mechanical Ventilator 100 20/20 18:40 137 39 182/112 78 20/20 18:30 130 38 183/112 (135) 86 20/20 18:10 130 33 151/83 98 20/20 18:00 127 37 120/76 (91) 92 20/20 17:45 122 29 151/83 (105) 92 20/20 17:37 158 26 97 Mechanical Ventilator 60.0 100 20/20 17:34 146 172/95 20/20 17:30 159 23 146/102 (117) 92 20/20 17:29 158 23 100 20/20 17:15 150 28 172/95 (120) 97 20/20 17:00 152 25 169/116 (133) 96 20/20 16:30 97.8 159 23 183/17 (72) 92 07/29/20 16:00 48 07/29/20 16:00 100 07/29/20 16:00 Mechanical Ventilator 07/29/20 15:30 90 07/29/20 15:09 84 53 94 100 Intake and Output 07/29/20 07/30/20 19:00 07:00 Intake Total 1214.560 ml Output Total 760 ml Balance 454.560 ml IV Total 1214.560 ml Output Urine Total 760 ml # Bowel Movements 3 3 General Appearance: no acute distress HEENT: normocephalic Respiratory: chest wall non-tender, crackles/rales Cardiovascular: normal peripheral pulses, normal rate Abdomen: normal bowel sounds Extremities: no cyanosis, no clubbing Laboratory Tests 07/29/20 15:37: Arterial Blood pH 7.436, Arterial Blood Partial Pressure CO2 38.4, Arterial Blood Partial Pressure O2 66.8L, Arterial Blood HCO3 25.3, Arterial Blood Oxygen Saturation 93.5L, Arterial Blood Base Excess 1.2, Francisco Test Positive 07/29/20 17:19: Arterial Blood pH 7.244*L, Arterial Blood Partial Pressure CO2 62.0*H, Arterial Blood Partial Pressure O2 128.9H, Arterial Blood HCO3 26.2H, Arterial Blood Oxygen Saturation 97.7, Arterial Blood Base Excess -2.6L, Francisco Test Positive 07/29/20 20:55: Arterial Blood pH 7.362, Arterial Blood Partial Pressure CO2 48.5H, Arterial Blood Partial Pressure O2 49.1*L, Arterial Blood HCO3 26.9H, Arterial Blood O xygen Saturation 81.9*L, Arterial Blood Base Excess 0.8, Francisco Test Positive 07/30/20 01:56: Arterial Blood pH 7.377, Arterial Blood Partial Pressure CO2 48.0H, Arterial Blood Partial Pressure O2 46.1*L, Arterial Blood HCO3 27.6H, Arterial Blood Oxygen Saturation 80.0*L, Arterial Blood Base Excess 1.7, Francisco Test Positive 07/30/20 03:52: White Blood Count 23.2*H, Red Blood Count 4.53L, Hemoglobin 13.7L, Hematocrit 40.3L, Mean Corpuscular Volume 89, Mean Corpuscular Hemoglobin 30.3, Mean Corpuscular Hemoglobin Concent 34.0, Red Cell Distribution Width 13.8, Platelet Count 141L, Mean Platelet Volume 5.9L, Neutrophils (%) (Auto) , Lymphocytes (%) (Auto) , Monocytes (%) (Auto) , Eosinophils (%) (Auto) , Basophils (%) (Auto) , Differential Total Cells Counted 100, Neutrophils % (Manual) 94H, Lymphocytes % (Manual) 4L, Monocytes % (Manual) 2, Eosinophils % (Manual) 0, Basophils % (Manual) 0, Band Neutrophils 0, Platelet Estimate DecreasedL, Platelet Morphology Normal, Red Blood Cell Morphology Normal, Sodium Level 138, Potassium Level 4.2, Chloride Level 105, Carbon Dioxide Level 30, Anion Gap 3L, Blood Urea Nitrogen 25H, Creatinine 0.8, Estimat Glomerular Filtration Rate > 60, Glucose Level 198H, Calcium Level 7.3L, Phosphorus Level 3.3, Magnesium Level 2.2, Total Bilirubin 0.5, Aspartate Amino Transf (AST/SGOT) 25, Alanine Aminotransferase (ALT/SGPT) 24, Alkaline Phosphatase 142H, Troponin I 0.074H, Total Protein 6.0L, Albumin 1.7L, Globulin 4.3, Albumin/Globulin Ratio 0.4L, Triglycerides Level 162H Current Medications Medications (Trade) Dose Ordered Sig/Dalia Route PRN Reason Start Time Stop Time Status Last Admin Dose Admin Acetaminophen (Tylenol) 500 mg Q6H PRN ORAL Mild Pain (Pain Scale 1-3) 07/21/20 08:15 08/20/20 08:14 07/28/20 09:14 Ascorbic Acid (Vitamin C) 500 mg TWICE A DAY ORAL 07/23/20 09:00 08/22/20 08:59 07/29/20 09:33 Chlorhexidine Gluconate (Hiral-Hex 2%) 1 applic DAILY@2000 TOPIC 07/30/20 20:00 10/28/20 19:59 Dextrose (Dextrose 50%) 25 ml Q30M PRN IV Hypoglycemia 07/21/20 13:30 10/19/20 13:29 Dextrose (Dextrose 50%) 50 ml Q30M PRN IV Hypoglycemia 07/21/20 13:30 10/19/20 13:29 Dopamine HCl/ Dextrose 250 ml @ 0 mls/hr Q24H IV 07/29/20 23:00 08/01/20 22:58 07/29/20 23:18 Enoxaparin Sodium (Lovenox) 40 mg DAILY SUBQ 07/22/20 09:00 10/20/20 08:59 07/30/20 08:11 Fentanyl Citrate 2500 mcg/Sodium Chloride 250 ml @ 1 mls/hr Q24H IV 07/29/20 17:30 07/31/20 17:29 07/29/20 19:45 Guaifenesin (Robitussin) 200 mg Q4H PRN ORAL For Cough 07/25/20 12:30 10/23/20 12:29 07/29/20 09:32 Insulin Aspart (NovoLOG) BEFORE MEALS AND HS SUBQ 07/21/20 16:30 10/19/20 16:29 07/30/20 06:27 Insulin Aspart (NovoLOG) 8 units TIWM SUBQ 07/29/20 12:00 10/19/20 16:59 Insulin Detemir (Levemir) 8 units EVERY 12 HOURS SUBQ 07/23/20 09:00 10/19/20 20:59 07/29/20 21:55 Lorazepam (Ativan 2mg/ml 1ml) 1 mg Q4H PRN IV For Anxiety 07/29/20 17:15 08/05/20 17:14 07/30/20 04:05 Mirtazapine (Remeron) 15 mg BEDTIME ORAL 07/22/20 21:00 10/20/20 20:59 07/28/20 21:07 Pantoprazole (Protonix) 40 mg DAILY IVP 07/30/20 09:00 08/29/20 08:59 07/30/20 08:08 Piperacillin Sod/ Tazobactam Sod 3.375 gm/Sodium Chloride 110 ml @ 27.5 mls/hr EVERY 8 HOURS IVPB 07/30/20 12:00 08/04/20 11:59 Propofol 100 ml @ 2.341 mls/ hr Q12H IV 07/29/20 19:00 07/31/20 18:59 07/30/20 08:10 Sodium Chloride 1,000 ml @ 75 mls/hr [id number] IV 07/29/20 22:30 08/28/20 22:29 07/30/20 06:28 Assessment/Plan Assessment/Plan Assessment/Plan 1. COVID-19 pneumonia. - On Decadron - on remdesivir per ID specialist - Intubated yesterday - On AC mode; FiO2 100 %; PEEP 15 - On dopamine; Central line in place - on propofol and fentanyl - CXR 07/24 Marked worsening of bilateral infiltrates 2. Elevated inflammatory markers. 3. Diabetes mellitus. -On glucose lowering agents 4. DVT prophylaxis - On Lovenox Pradeep Fiore MD, MD Jul 30, 2020 12:13
--- NOTE | 2020-07-30 12:13 | Cardiac Electrophysiology PN ---
Subjective Subjective [id number] Objective Last 24 Hour Vital Signs Date Time Temp Pulse Resp B/P (MAP) Pulse Ox O2 Delivery O2 Flow Rate FiO2 07/30/20 10:00 79 31 127/48 (74) 90 07/30/20 09:00 75 26 115/48 (70) 95 07/30/20 08:10 28 125/52 Endotracheal Tube 100 07/30/20 08:00 100 07/30/20 08:00 Mechanical Ventilator 07/30/20 08:00 97.8 71 27 125/52 (76) 93 07/30/20 08:00 73 07/30/20 07:00 125/60 07/30/20 06:30 29 135/60 Mechanical Ventilator 100 07/30/20 06:30 29 135/60 Mechanical Ventilator 100 07/30/20 06:15 85 30 91/41 (58) 93 07/30/20 06:00 74 29 98/41 (60) 98 07/30/20 06:00 80/45 07/30/20 05:45 87 33 104/52 (69) 95 07/30/20 05:30 74 29 95/42 (59) 97 07/30/20 05:30 32 104/52 Mechanical Ventilator 100 07/30/20 05:30 32 104/52 Mechanical Ventilator 100 07/30/20 05:15 95 28 114/57 (76) 91 07/30/20 05:00 114/57 07/30/20 05:00 92 34 128/46 (73) 85 07/30/20 04:45 94 25 118/52 (74) 89 07/30/20 04:35 89 29 104/52 94 07/30/20 04:30 99 31 114/53 (73) 88 07/30/20 04:30 31 118/52 Mechanical Ventilator 100 07/30/20 04:30 31 118/52 Mechanical Ventilator 100 07/30/20 04:15 104 34 110/54 (72) 87 07/30/20 04:05 112 42 158/53 (88) 90 07/30/20 04:05 112 42 154/77 89 07/30/20 04:00 100 07/30/20 04:00 73 07/30/20 04:00 Mechanical Ventilator 07/30/20 04:00 158/53 07/30/20 04:00 99.0 100 33 140/55 (83) 89 07/30/20 03:30 33 110/54 Mechanical Ventilator 100 07/30/20 03:30 33 110/54 Mechanical Ventilator 100 07/30/20 03:00 111/56 07/30/20 02:52 74 28 100 07/30/20 02:30 26 128/46 Mechanical Ventilator 100 07/30/20 02:30 26 128/46 Mechanical Ventilator 100 07/30/20 02:15 32 114/53 Mechanical Ventilator 100 07/30/20 02:15 32 114/53 Mechanical Ventilator 100 07/30/20 02:00 122/52 07/30/20 02:00 31 118/52 Mechanical Ventilator 100 07/30/20 02:00 31 118/52 100 07/30/20 01:45 29 117/51 Mechanical Ventilator 100 07/30/20 01:45 29 117/51 Mechanical Ventilator 100 07/30/20 01:30 22 122/52 Non-Rebreather 100 07/30/20 01:30 31 126/50 Mechanical Ventilator 100 07/30/20 01:15 82 31 139/53 (81) 86 07/30/20 01:15 32 122/52 Mechanical Ventilator 100 07/30/20 01:15 32 122/52 Mechanical Ventilator 100 07/30/20 01:11 81 31 152/52 (85) 85 07/30/20 01:00 152/52 07/30/20 01:00 31 138/49 Mechanical Ventilator 100 07/30/20 01:00 31 138/49 Mechanical Ventilator 100 07/30/20 01:00 96 24 85/51 (62) 92 07/30/20 00:45 25 85/51 Mechanical Ventilator 100 07/30/20 00:45 25 85/51 Mechanical Ventilator 100 07/30/20 00:45 97 26 80/46 (57) 89 07/30/20 00:31 97 26 82/39 (53) 88 07/30/20 00:30 96 26 77/45 (56) 87 07/30/20 00:15 24 105/50 Mechanical Ventilator 100 07/30/20 00:15 98 27 86/42 (57) 89 07/30/20 00:00 101 07/30/20 00:00 100 07/30/20 00:00 86/42 07/30/20 00:00 98.0 103 24 88/50 (63) 93 20 00:00 Mechanical Ventilator 07/30/20 00:00 103 24 88/50 (63) 93 20 23:45 25 89/50 Mechanical Ventilator 100 20 23:45 25 88/50 Mechanical Ventilator 100 20 23:45 102 25 88/48 (61) 92 20 23:30 102 26 88/45 (59) 90 20 23:18 80/45 20 23:15 104 26 85/49 (61) 92 20 23:00 104 27 87/43 (58) 90 20 22:45 27 87/43 Mechanical Ventilator 100 07/29/20 22:45 27 87/43 Mechanical Ventilator 100 07/29/20 22:45 107 28 86/52 (63) 91 20 22:30 109 30 84/46 (59) 91 20 22:30 106 28 100 07/29/20 22:15 113 34 89/50 (63) 92 07/29/20 22:00 120 45 106/53 (70) 93 20 21:49 116 48 132/74 (93) 91 20 21:45 107 31 81/54 (63) 89 2020 21:45 45 132/74 Mechanical Ventilator 100 07/29/20 21:45 45 132/74 Mechanical Ventilator 100 07/29/20 21:15 124 46 124/79 (94) 85 2020 21:00 122 38 117/78 (91) 85 2020 20:45 107 31 81/54 (63) 89 2020 20:45 45 117/78 Mechanical Ventilator 100 20 20:45 22 102/60 Mechanical Ventilator 100 2020 20:37 105 31 78/54 (62) 89 20/20 20:30 31 78/54 Mechanical Ventilator 100 2020 20:30 26 85/49 Mechanical Ventilator 100 20/20 20:30 107 28 73/50 (58) 93 20/20 20:22 112 32 76/53 (61) 96 2020 20:15 31 76/53 Mechanical Ventilator 100 2020 20:15 30 117/78 Mechanical Ventilator 100 07/29/20 20:15 98.1 117 31 69/51 (57) 96 07/29/20 20:00 100 07/29/20 20:00 120 07/29/20 20:00 35 103/72 Mechanical Ventilator 100 20 20:00 35 100/60 Mechanical Ventilator 100 20 20:00 Mechanical Ventilator 07/29/20 20:00 123 36 103/72 (82) 89 07/29/20 19:45 40 90/61 Mechanical Ventilator 100 07/29/20 19:45 34 100/61 Mechanical Ventilator 100.0 100 20 19:30 35 103/72 Mechanical Ventilator 100 20 19:17 134 48 100 07/29/20 19:16 72 Mechanical Ventilator 100 07/29/20 19:15 38 83/60 Mechanical Ventilator 100 07/29/20 19:00 25 135/60 Mechanical Ventilator 100 07/29/20 19:00 45 91/60 Mechanical Ventilator 100 07/29/20 18:40 137 39 182/112 78 07/29/20 18:30 130 38 183/112 (135) 86 07/29/20 18:10 130 33 151/83 98 07/29/20 18:00 127 37 120/76 (91) 92 07/29/20 17:45 122 29 151/83 (105) 92 07/29/20 17:37 158 26 97 Mechanical Ventilator 60.0 100 07/29/20 17:34 146 172/95 07/29/20 17:30 159 23 146/102 (117) 92 07/29/20 17:29 158 23 100 07/29/20 17:15 150 28 172/95 (120) 97 07/29/20 17:00 152 25 169/116 (133) 96 07/29/20 16:30 97.8 159 23 183/17 (72) 92 07/29/20 16:00 48 07/29/20 16:00 100 07/29/20 16:00 Mechanical Ventilator 07/29/20 15:30 90 07/29/20 15:09 84 53 94 100 Intake and Output 07/29/20 07/30/20 19:00 07:00 Intake Total 1214.560 ml Output Total 760 ml Balance 454.560 ml IV Total 1214.560 ml Output Urine Total 760 ml # Bowel Movements 3 3 Laboratory Tests Test 07/29/20 15:37 07/29/20 17:19 07/29/20 20:55 07/30/20 01:56 Arterial Blood pH 7.436 (7.350-7.450) 7.244 (7.350-7.450) 7.362 (7.350-7.450) 7.377 (7.350-7.450) Arterial Blood Partial Pressure CO2 38.4 mmHg (35.0-45.0) 62.0 mmHg (35.0-45.0) *H 48.5 mmHg (35.0-45.0) H 48.0 mmHg (35.0-45.0) H Arterial Blood Partial Pressure O2 66.8 mmHg (75.0-100.0) L 128.9 mmHg (75.0-100.0) H 49.1 mmHg (75.0-100.0) 46.1 mmHg (75.0-100.0) Arterial Blood HCO3 25.3 mmol/L (22.0-26.0) 26.2 mmol/L (22.0-26.0) H 26.9 mmol/L (22.0-26.0) H 27.6 mmol/L (22.0-26.0) H Arterial Blood Oxygen Saturation 93.5 % (95-100) L 97.7 % (95-100) 81.9 % (95-100) *L 80.0 % (95-100) *L Arterial Blood Base Excess 1.2 (-2-2) -2.6 (-2-2) L 0.8 (-2-2) 1.7 (-2-2) Francisco Test Positive Positive Positive Positive Test 07/30/20 03:52 White Blood Count 23.2 K/UL (4.8-10.8) *H Red Blood Count 4.53 M/UL (4.70-6.10) L Hemoglobin 13.7 G/DL (14.2-18.0) L Hematocrit 40.3 % (42.0-52.0) L Mean Corpuscular Volume 89 FL (80-99) Mean Corpuscular Hemoglobin 30.3 PG (27.0-31.0) Mean Corpuscular Hemoglobin Concent 34.0 G/DL (32.0-36.0) Red Cell Distribution Width 13.8 % (11.6-14.8) Platelet Count 141 K/UL (150-450) L Mean Platelet Volume 5.9 FL (6.5-10.1) L Neutrophils (%) (Auto) % (45.0-75.0) Lymphocytes (%) (Auto) % (20.0-45.0) Monocytes (%) (Auto) % (1.0-10.0) Eosinophils (%) (Auto) % (0.0-3.0) Basophils (%) (Auto) % (0.0-2.0) Differential Total Cells Counted 100 Neutrophils % (Manual) 94 % (45-75) H Lymphocytes % (Manual) 4 % (20-45) L Monocytes % (Manual) 2 % (1-10) Eosinophils % (Manual) 0 % (0-3) Basophils % (Manual) 0 % (0-2) Band Neutrophils 0 % (0-8) Platelet Estimate Decreased L Platelet Morphology Normal Red Blood Cell Morphology Normal Sodium Level 138 MMOL/L (136-145) Potassium Level 4.2 MMOL/L (3.5-5.1) Chloride Level 105 MMOL/L (98-107) Carbon Dioxide Level 30 MMOL/L (21-32) Anion Gap 3 mmol/L (5-15) L Blood Urea Nitrogen 25 mg/dL (7-18) H Creatinine 0.8 MG/DL (0.55-1.30) Estimat Glomerular Filtration Rate > 60 mL/min (>60) Glucose Level 198 MG/DL (74-106) H Calcium Level 7.3 MG/DL (8.5-10.1) L Phosphorus Level 3.3 MG/DL (2.5-4.9) Magnesium Level 2.2 MG/DL (1.8-2.4) Total Bilirubin 0.5 MG/DL (0.2-1.0) Aspartate Amino Transf (AST/SGOT) 25 U/L (15-37) Alanine Aminotransferase (ALT/SGPT) 24 U/L (12-78) Alkaline Phosphatase 142 U/L (46-116) H Troponin I 0.074 ng/mL (0.000-0.056) Total Protein 6.0 G/DL (6.4-8.2) L Albumin 1.7 G/DL (3.4-5.0) L Globulin 4.3 g/dL Albumin/Globulin Ratio 0.4 (1.0-2.7) L Triglycerides Level 162 MG/DL (30-150) H Jeancarlos Carranza MD Jul 30, 2020 12:13
[2020-07-30] MEDS: Piperacillin/Tazobactam 3.375 GM in NS 110 ML IVPB SCH ×2 (12:31→21:13)
--- NOTE | 2020-07-30 13:29 | Consultation ---
Consult Note Consult Note I am asked to evaluate the patient at the request of Dr. Colvin for hypotension and low urine output Day 9 of hospitalization of the patient at [facility] Patient was transferred from [facility] to ICU after developed respiratory distress and now intubated in room at the ICUA Patient evaluated, examined, discussed with epic kaleidoscope analyst reviewed Patient on mechanical ventilation Patient has Miranda catheter On low-dose pressors PHYSICAL EXAMINATION: VITAL SIGNS: Blood pressure of 127/48, on dopamine, pulse is 79, respirations 18, temperature 97.8. HEAD AND NECK: Orally intubated. LUNGS: Decreased breath sounds and coarse rhonchi. CARDIOVASCULAR: Regular S1 and S2 with no gallop or murmur. ABDOMEN: Soft. EXTREMITIES: No pitting edema. LABORATORY AND DIAGNOSTIC DATA: White count of 23.2, hemoglobin of 13.2, hematocrit of 40, and platelet count is 141. Sodium 138, potassium 4.2, BUN of 25, creatinine 0.8, and glucose of 198. Troponin elevated at 0.074. . Assessment/Plan Oliguria due to hypotension On low-dose pressors COVID-19 disease seems to be severe. Diabetes mellitus with hyperglycemia. Hypoxic respiratory failure Lymphocytopenia. Sinus tachycardia Leukocytosis Continue per pulmonary Continue per ID Keep the blood pressure over 100 systolic Monitor renal parameters and urine output Avoid nephrotoxic's Per orders José Luis Preciado MD Jul 30, 2020 13:29
--- NOTE | 2020-07-30 14:00 | NUR ---
NURSE NOTES: Patient stable. No s/sx of pain or distress.
--- NOTE | 2020-07-30 14:56 | NUR ---
RADIOLOGY DEPT., CHEST AND ABDOMEN X-RAY COMPLETED.-P.DYE
[2020-07-30] MEDS: DOPamine 400mg/250ml 250 ML IV SCH ×2 (15:06→21:57)
[2020-07-30] MEDS: fentaNYL Citrate 2,500 MCG in NS 200 ML IV SCH (15:12)
--- NOTE | 2020-07-30 15:45 | Consultation ---
DATE OF CONSULTATION: 07/30/2020 CARDIOLOGY CONSULTATION REFERRING PHYSICIAN: Milagro Miller M.D. REASON FOR CONSULTATION: Hypotension and respiratory failure. HISTORY OF PRESENT ILLNESS: The patient is a 54-year-old gentleman with history of diabetes, presented to the hospital with increasing shortness of breath that has been going on for about a week. The patient was found to be markedly hypoxemic and was placed on nonrebreather. The patient was found to have COVID positive and had bilateral patchy infiltrates suggestive for pneumonia. The patient was initially on PRAV[facility]. However, respiratory failure and was intubated and was brought to intensive care unit. On my evaluation, the patient is in COVID isolation and on 100% FiO2 and a PEEP of 15 on the ventilator. The patient is also on dopamine of 8 mcg and propofol of 20 mg and fentanyl drip. REVIEW OF SYSTEMS: Cannot be obtained. PAST MEDICAL HISTORY: As mentioned above. ALLERGIES: He has no known drug allergies. SOCIAL HISTORY: No known history of drug use. PHYSICAL EXAMINATION: VITAL SIGNS: Blood pressure of 127/48, on dopamine, pulse is 79, respirations 18, temperature 97.8. HEAD AND NECK: Orally intubated. LUNGS: Decreased breath sounds and coarse rhonchi. CARDIOVASCULAR: Regular S1 and S2 with no gallop or murmur. ABDOMEN: Soft. EXTREMITIES: No pitting edema. LABORATORY AND DIAGNOSTIC DATA: White count of 23.2, hemoglobin of 13.2, hematocrit of 40, and platelet count is 141. Sodium 138, potassium 4.2, BUN of 25, creatinine 0.8, and glucose of 198. Troponin elevated at 0.074. ASSESSMENT AND PLAN: 1. Troponin elevation. This could be due to stress of respiratory failure in this patient with COVID pneumonia. We will repeat the EKG and get an echocardiogram to evaluate for ejection fraction and wall motion abnormality. 2. COVID pneumonia and respiratory failure. The patient is on the ventilator with 100% FiO2 and PEEP of 15. 3. Hypotension. Continue dopamine as the patient was also bradycardic, heart rate on dopamine is in only 70s. 4. Respiratory failure, on the ventilator. 5. Diabetes. Further evaluation and management. 6. Sepsis. The patient is on Zosyn per Dr. Christian Caraballo. Thank you very much Dr. Miller for allowing me to participate in the care of this patient. Please do not hesitate to contact me for any questions regarding my evaluation. Jeancarlos Carranza M.D. DR: CAPO JOB#: [id number] CC:
--- NOTE | 2020-07-30 16:00 | NUR ---
NURSE NOTES: Patient stable. No s/sx of pain or distress.
--- NOTE | 2020-07-30 18:15 | NUR ---
NURSE NOTES: Propofol titrated up to 15mcg due to RASS of -1. Fentanyl previously titrated down from 150 to 100mcg due to RASS -3 and bradycardia. Bradycardia unchanged.
--- NOTE | 2020-07-30 19:12 | NUR ---
NURSE HAND-OFF REPORT: Latest Vital Signs: Temperature 97.8 , Pulse 58 , B/P 163 /57 , Respiratory Rate 32 , O2 SAT 98 , Endotracheal Tube, O2 Flow Rate . Vital Sign Comment: Guarded. Bradycardia. EKG Rhythm: Sinus Bradycardia Rhythm change?: Y Notified?: Y Response: Dr. Carranza. Parameters given Latest Van Fall Score: 50 Fall Risk: High Risk Safety Measures: Call light Within Reach, Bed Alarm Zone 1, Side Rails Side Rails x2, Bed position Low and Locked. Fall Precautions: Patient Fall Education Report given to Jenn MONTANO. Patient bradycardic despite titrating medications. MD aware and parameters received. RN aware.
--- NOTE | 2020-07-30 19:12 | NUR ---
NURSE NOTES: Received patient from [facility]. Will continue plan of care.
[2020-07-30] MEDS ORDERED: D5 1/2NS 1000ml IV ONE (19:37)
[2020-07-30] MEDS ORDERED: Tubing IV Secondary IV ONE (19:37)
[2020-07-30] MEDS ORDERED: NS 275ml ONE ×2 (19:37→19:43)
--- NOTE | 2020-07-30 20:00 | NUR ---
NURSE NOTES: Received patient intubated; ETT 7.5 to 23cm to the lipline with vent settings of AC:26, TV:450, FiO2:100% PEEP:1%, O2sat:98%. Patient is lightly sedated RASS -2; awakens to voice and touch. OGT inserted but NPO status. Right femoral TLC running NS @ 100ml/hr, Fentanyl @ 100mcg and Propofol @ 15mcgs and Dopamine @ 12mcgs to keep HR above 50. On bilateral soft wrist restraints for safety and prevent from pulling on lines and tubing. Safety measures in place; bed low, locked and alarm is on. Will continue plan of care.
[2020-07-30] MEDS: Dyna-Hex 2% Top Sol 2oz TOPIC SCH (21:14)
--- NOTE | 2020-07-30 22:00 | NUR ---
NURSE NOTES: Turned and repositioned. Oral care and suctioning provided. Fentanyl continues at 100mcgs, Propofol @ 15mcgs, Dopamine @ 12mcgs, and NS @ 100ml. Lightly sedated RASS -2. Awakens easily to voice and touch.
--- NOTE | 2020-07-30 22:46 | Psychiatric Progress Note ---
Psychiatry Progress Note Psychiatry Progress Note Subjective no new changes calm manageable Medications Current Medications Medications (Trade) Dose Ordered Sig/Dalia Route PRN Reason Start Time Stop Time Status Last Admin Dose Admin Acetaminophen (Tylenol) 500 mg Q6H PRN ORAL Mild Pain (Pain Scale 1-3) 07/21/20 08:15 08/20/20 08:14 07/28/20 09:14 Ascorbic Acid (Vitamin C) 500 mg TWICE A DAY ORAL 07/23/20 09:00 08/22/20 08:59 07/29/20 09:33 Chlorhexidine Gluconate (Hiral-Hex 2%) 1 applic DAILY@2000 TOPIC 07/30/20 20:00 10/28/20 19:59 07/30/20 21:14 Dextrose (Dextrose 50%) 25 ml Q30M PRN IV Hypoglycemia 07/21/20 13:30 10/19/20 13:29 Dextrose (Dextrose 50%) 50 ml Q30M PRN IV Hypoglycemia 07/21/20 13:30 10/19/20 13:29 Dopamine HCl/ Dextrose 250 ml @ 0 mls/hr Q24H IV 07/29/20 23:00 08/01/20 22:58 07/30/20 21:57 Enoxaparin Sodium (Lovenox) 40 mg DAILY SUBQ 07/22/20 09:00 10/20/20 08:59 07/30/20 08:11 Fentanyl Citrate 2500 mcg/Sodium Chloride 250 ml @ 1 mls/hr Q24H IV 07/29/20 17:30 07/31/20 17:29 07/30/20 15:12 Guaifenesin (Robitussin) 200 mg Q4H PRN ORAL For Cough 07/25/20 12:30 10/23/20 12:29 07/29/20 09:32 Insulin Aspart (NovoLOG) BEFORE MEALS AND HS SUBQ 07/21/20 16:30 10/19/20 16:29 07/30/20 21:23 Insulin Aspart (NovoLOG) 8 units TIWM SUBQ 07/29/20 12:00 10/19/20 16:59 Insulin Detemir (Levemir) 8 units EVERY 12 HOURS SUBQ 07/23/20 09:00 10/19/20 20:59 07/30/20 21:22 Lorazepam (Ativan 2mg/ml 1ml) 1 mg Q4H PRN IV For Anxiety 07/29/20 17:15 08/05/20 17:14 07/30/20 04:05 Mirtazapine (Remeron) 15 mg BEDTIME ORAL 07/22/20 21:00 10/20/20 20:59 07/30/20 21:13 Pantoprazole (Protonix) 40 mg DAILY IVP 07/30/20 09:00 08/29/20 08:59 07/30/20 08:08 Piperacillin Sod/ Tazobactam Sod 3.375 gm/Sodium Chloride 110 ml @ 27.5 mls/hr EVERY 8 HOURS IVPB 07/30/20 12:00 08/04/20 11:59 07/30/20 21:13 Propofol 100 ml @ 2.341 mls/ hr Q12H IV 07/29/20 19:00 07/31/20 18:59 07/30/20 22:32 Sodium Chloride 1,000 ml @ 75 mls/hr [id number] IV 07/29/20 22:30 08/28/20 22:29 07/30/20 22:32 Neurological/Psychiatric: Reports: anxiety, depressed, emotional problems Allergies: Coded Allergies: No Known Allergies (Unverified , 07/21/20) Objective Data Height (Feet): 5 Height (Inches): 6.00 Weight (Pounds): 172 General Appearance: alert, confused, agitated Additional Comments: alert, oriented to self, place, situation. Mood is anxious. Affect is blunted, congruent with mood. Thought process is concrete. Thought content, no suicidal or homicidal ideation. Cognition is intact. Insight and judgment fair. Assessment/Plan [place] I: ASSESSMENT: [place] I Anxiety disorder. [place] II Deferred. [place] III As above. [place] IV Low. [place] V 20 PLAN: 1. We will continue current medication. 2. Provide the patient with reality orientation and supportive therapy. Status: progressing Status Narrative ASSESSMENT: [place] I Anxiety disorder. [place] II Deferred. [place] III As above. [place] IV Low. [place] V 20 PLAN: 1. We will continue current medication. 2. Provide the patient with reality orientation and supportive therapy. Assessment/Plan: ASSESSMENT: [place] I Anxiety disorder. [place] II Deferred. [place] III As above. [place] IV Low. [place] V 20 PLAN: 1. We will continue current medication. 2. Provide the patient with reality orientation and supportive therapy. Ron Bridges MD Jul 30, 2020 22:46
[2020-07-31] VITALS (41 sets, daily range): BP systolic 91–158; BP diastolic 10–74
--- NOTE | 2020-07-31 01:45 | NUR ---
NURSE NOTES: Patient became suddenly agitated, broke out of restraints and self extubated. RNs began bagging patient and placed onto a non-rebreather mask @ 100% until ER MD arrived for intubation. Patient re-intubated and OGT inserted. CXR done for confirmation. Continues n Fentanyl and propofol and titrating up to reach a RASS score of -2.
--- NOTE | 2020-07-31 02:19 | Diagnostic Imaging Report ---
EXAM: XR Chest, 1 View CLINICAL HISTORY: TUBE PLCMT TECHNIQUE: Frontal view of the chest. COMPARISON: 07/29/2020 FINDINGS: Lungs: Similar appearing extensive bilateral lung patchy opacities. Low lung volumes with bronchovascular crowding. Pleural space: Unremarkable. No pneumothorax. Heart: Unremarkable. No cardiomegaly. Mediastinum: Unremarkable. Bones/joints: No acute abnormality Tubes, lines and devices: Right mainstem endotracheal tube position. Enteric tube with tip and proximal sideport below the gastroesophageal junction. IMPRESSION: 1. Right mainstem endotracheal tube position. 2. Recommend retraction of endotracheal tube 4-5 centimeters and reimaging. 3. Enteric tube with tip and proximal sideport below the gastroesophageal junction. 4. Similar appearing extensive bilateral lung patchy opacities. 5. Low lung volumes with bronchovascular crowding. <MYCVCSECTION> Communications: 07/31/20 02:24 Call Nurse CHARMAINE Rushing on 07/31 02:24 (-08:00)
--- NOTE | 2020-07-31 02:38 | Emergency Room Report ---
History of Present Illness General Chief Complaint: Dyspnea/Respdistress Source: Patient, EMS Present Illness HPI This patient was admitted to the hospital for Covid pneumonia. He subsequently deteriorated and had to be intubated. I was called to reintubate the patient because of self extubation. I intubated the patient without any difficulty. Chest x-ray showed endotracheal tube chest at the entrance of the right bronchus. This was pulled back 2 cm. No complication. Allergies: Coded Allergies: No Known Allergies (Unverified , 07/21/20) COVID-19 Screening Contact w/high risk pt: No Experienced COVID-19 symptoms?: Yes COVID-19 Testing performed NUTRITION ASSISTANT: No COVID-19 Screening: Positive COVID-19 Nursing Documentation-[facility] Hx Diabetes: Yes Physical Exam Vital Signs Date Time Temp Pulse Resp B/P (MAP) Pulse Ox O2 Delivery O2 Flow Rate FiO2 07/27/20 07:40 91 42 94 100 07/27/20 07:40 Bi-Pap 07/27/20 08:00 98.8 124/54 (77) 07/29/20 17:37 60.0 Procedures Intubation Intubation : Consent: Emergent Intubation Method: orotracheal Tube Size (cm): 7.5 Breath Sounds after Intubation: equal Intubation Complications: no complications Post Intubation Xray: Yes Progress/Xray Impression: Endotracheal tube at right mainstem bronchus entrance. No pneumothorax. Attempts: One Patient Tolerated: Well Complications: None Medical Decision Making Diagnostic Impression: Primary Impression: Pneumonia due to COVID-19 virus Additional Impressions: Acute respiratory failure with hypoxia Hyperglycemia due to type 2 diabetes mellitus Qualified Codes: E11.65 - Type 2 diabetes mellitus with hyperglycemia Respiratory failure requiring intubation ER Course Patient required reintubation. Intubated without any difficulty. Chest X-Ray Diagnostic Results Chest X-Ray Diagnostic Results : Chest X-Ray Ordered: Yes # of Views/Limited/Complete: 1 View Indication: Shortness of Breath EP Interpretation: Yes Interpretation: no effusion, no pneumothorax, other - Endotracheal tube at right mainstem bronchus. Bilateral incisional infiltrates. Last Vital Signs Date Time Temp Pulse Resp B/P (MAP) Pulse Ox O2 Delivery O2 Flow Rate FiO2 07/31/20 01:39 Mechanical Ventilator 100 07/30/20 23:30 10 164/75 07/30/20 22:57 57 07/30/20 21:00 98 07/30/20 20:00 97.8 07/29/20 19:45 100.0 Status: improved Disposition: ADMITTED INPATIENT Condition: Critical Referrals: NOT CHOSEN IPA/,REFERRING (PCP) Grant Hackett MD Jul 31, 2020 02:38
--- NOTE | 2020-07-31 04:00 | NUR ---
NURSE NOTES: Patient is no sedated with RASS score of -2. Propofol @ 50mcg and Fentanyl @ 240mcg. NS continues at 75ml/hr and Dopamine @ 12mcg.
[2020-07-31] MEDS: NovoLOG Insulin Flexpen SUBQ SCH ×6 (05:12→20:26)
[2020-07-31] MEDS: DOPamine 400mg/250ml 250 ML IV SCH ×3 (05:13→20:21)
[2020-07-31] MEDS: Piperacillin/Tazobactam 3.375 GM in NS 110 ML IVPB SCH ×3 (05:23→21:47)
[2020-07-31 05:27] LABS: HEMATOCRIT 39.7 % (42.0-52.0); HEMOGLOBIN 13.7 G/DL (14.2-18.0); MEAN CORPUSCULAR VOLUME 88 FL (80-99); PLATELET COUNT 186 K/UL (150-450); RED CELL DISTRIBUTION WIDTH 13.6 % (11.6-14.8)
[2020-07-31 05:40] LABS: WHITE BLOOD COUNT 25.7 K/UL (4.8-10.8)
[2020-07-31 05:49] LABS: ALANINE AMINOTRANSFERASE 20 U/L (12-78); ALBUMIN 1.5 G/DL (3.4-5.0); ALBUMIN/GLOBULIN RATIO 0.3 (1.0-2.7); ALKALINE PHOSPHATASE 128 U/L (46-116); ANION GAP 4 mmol/L (5-15); ASPARTATE AMINO TRANSFERASE 22 U/L (15-37); BILIRUBIN,TOTAL 0.5 MG/DL (0.2-1.0); BLOOD UREA NITROGEN 24 mg/dL (7-18); CALCIUM 7.3 MG/DL (8.5-10.1); CARBON DIOXIDE 29 MMOL/L (21-32); CHLORIDE 106 MMOL/L (98-107); CHOLESTEROL 125 MG/DL (< 200); CREATININE 0.8 MG/DL (0.55-1.30); HDL CHOLESTEROL 14 MG/DL (40-60); LACTATE DEHYDROGENASE 515 U/L (81-234); PHOSPHORUS 3.7 MG/DL (2.5-4.9); POTASSIUM 4.5 MMOL/L (3.5-5.1); SODIUM 139 MMOL/L (136-145); TRIGLYCERIDES 253 MG/DL (30-150)
--- NOTE | 2020-07-31 06:00 | NUR ---
NURSE NOTES: Bed bath given, linens changed, turned and repositioned. EKG done and placed in chart.
--- NOTE | 2020-07-31 06:42 | General Progress Note ---
Subjective ROS Limited/Unobtainable: Yes Allergies: Coded Allergies: No Known Allergies (Unverified , 07/21/20) Subjective events noted interval notes reviewed glucose values elevated intubated in ICU Item Value Date Time Bedside Blood Glucose 264 mg/dl H 07/31/20 0616 Bedside Blood Glucose 249 mg/dl H 07/30/20 2123 Bedside Blood Glucose 238 mg/dl H 07/30/20 1800 Bedside Blood Glucose 154 mg/dl H 07/30/20 1200 Bedside Blood Glucose 194 mg/dl H 07/30/20 0627 Objective Last 24 Hour Vital Signs Date Time Temp Pulse Resp B/P (MAP) Pulse Ox O2 Delivery O2 Flow Rate FiO2 07/31/20 06:00 81 23 101/51 (68) 96 07/31/20 06:00 112/53 07/31/20 06:00 25 112/63 Mechanical Ventilator 100 07/31/20 05:30 26 119/41 Mechanical Ventilator 100 07/31/20 05:13 122/56 07/31/20 05:00 26 110/43 Mechanical Ventilator 100 07/31/20 05:00 65 26 122/56 (78) 97 07/31/20 04:30 26 110/44 Mechanical Ventilator 100 07/31/20 04:00 Mechanical Ventilator 07/31/20 04:00 110/44 07/31/20 04:00 26 114/54 Mechanical Ventilator 100 07/31/20 04:00 100 07/31/20 04:00 98.0 70 26 117/60 (79) 97 07/31/20 03:55 63 07/31/20 03:30 26 117/54 Mechanical Ventilator 100 07/31/20 03:08 66 26 100 07/31/20 03:00 96/47 07/31/20 03:00 29 96/47 Mechanical Ventilator 100 07/31/20 03:00 78 26 98/61 (73) 98 07/31/20 02:30 26 100/53 Mechanical Ventilator 100 07/31/20 02:30 69 26 91/60 (70) 98 07/31/20 02:15 80 25 102/38 (59) 98 07/31/20 02:15 26 91/60 Mechanical Ventilator 100 07/31/20 02:00 96 26 94/51 (65) 98 07/31/20 02:00 102/38 07/31/20 02:00 26 102/38 Mechanical Ventilator 100 07/31/20 02:00 26 102/38 Mechanical Ventilator 100 07/31/20 01:45 26 94/51 Mechanical Ventilator 100 07/31/20 01:45 26 94/51 Mechanical Ventilator 100 07/31/20 01:45 110 26 104/57 (73) 97 07/31/20 01:39 Mechanical Ventilator 100 07/31/20 01:30 118 26 99/46 (63) 98 07/31/20 01:30 26 104/57 Mechanical Ventilator 100 07/31/20 01:30 26 104/57 Mechanical Ventilator 100 07/31/20 01:15 26 118/10 Mechanical Ventilator 100 07/31/20 01:15 26 118/10 Mechanical Ventilator 100 07/31/20 01:00 128 26 118/10 (46) 99 07/31/20 01:00 118/10 07/31/20 01:00 26 118/10 Mechanical Ventilator 100 07/31/20 01:00 26 118/10 Mechanical Ventilator 100 07/31/20 00:45 57 21 158/74 (102) 97 07/31/20 00:33 53 07/31/20 00:00 97.9 68 16 156/51 (86) 96 07/31/20 00:00 Mechanical Ventilator 07/31/20 00:00 100 07/31/20 00:00 160/64 07/31/20 00:00 21 160/64 Mechanical Ventilator 100 07/31/20 00:00 21 160/64 Mechanical Ventilator 100 07/30/20 23:45 89 16 160/81 (107) 94 07/30/20 23:45 19 156/51 Mechanical Ventilator 100 07/30/20 23:30 10 164/75 Mechanical Ventilator 100 07/30/20 23:00 59 16 169/54 (92) 97 07/30/20 23:00 169/54 07/30/20 23:00 15 169/54 Mechanical Ventilator 100 07/30/20 23:00 15 169/54 Mechanical Ventilator 100 07/30/20 22:57 57 28 100 07/30/20 22:45 84 16 158/73 (101) 94 07/30/20 22:32 18 163/62 Mechanical Ventilator 100 07/30/20 22:00 64 15 145/63 (90) 96 07/30/20 22:00 163/62 07/30/20 22:00 18 163/62 Mechanical Ventilator 100 07/30/20 22:00 18 163/62 Mechanical Ventilator 100 07/30/20 21:57 158/51 07/30/20 21:00 54 19 159/49 (85) 98 07/30/20 21:00 18 151/61 Mechanical Ventilator 100 07/30/20 21:00 18 151/61 Mechanical Ventilator 100 07/30/20 20:00 Mechanical Ventilator 07/30/20 20:00 18 150/53 Mechanical Ventilator 100 07/30/20 20:00 18 150/53 Mechanical Ventilator 100 07/30/20 20:00 97.8 54 17 154/55 (88) 98 07/30/20 20:00 100 07/30/20 19:54 56 07/30/20 19:17 98 Mechanical Ventilator 100 07/30/20 19:15 58 32 100 07/30/20 19:00 20 161/58 Endotracheal Tube 100 07/30/20 19:00 18 163/57 Endotracheal Tube 100 07/30/20 19:00 56 16 163/57 (92) 97 07/30/20 18:00 68 20 139/57 (84) 99 07/30/20 18:00 21 145/41 Endotracheal Tube 100 07/30/20 18:00 21 145/41 Endotracheal Tube 100 07/30/20 17:45 25 139/49 Endotracheal Tube 100 07/30/20 17:30 25 149/72 Endotracheal Tube 100 07/30/20 17:30 70 25 139/49 (79) 99 07/30/20 17:15 25 105/49 Endotracheal Tube 100 07/30/20 17:00 25 118/46 Endotracheal Tube 100 07/30/20 17:00 25 118/46 Endotracheal Tube 100 07/30/20 17:00 60 25 105/49 (67) 99 07/30/20 16:45 25 116/58 Endotracheal Tube 100 07/30/20 16:30 61 25 116/56 (76) 98 07/30/20 16:00 61 07/30/20 16:00 100 07/30/20 16:00 107/50 07/30/20 16:00 25 107/50 Endotracheal Tube 100 07/30/20 16:00 25 107/50 Endotracheal Tube 100 07/30/20 16:00 Mechanical Ventilator 07/30/20 16:00 61 25 117/46 (69) 97 07/30/20 15:30 62 25 112/49 (70) 98 07/30/20 15:12 28 143/67 Endotracheal Tube 100 07/30/20 15:06 143/67 07/30/20 15:00 62 28 100 07/30/20 15:00 143/67 07/30/20 15:00 26 143/67 Endotracheal Tube 100 07/30/20 15:00 26 143/67 Endotracheal Tube 100 07/30/20 15:00 61 24 119/50 (73) 98 07/30/20 15:00 61 24 119/50 (73) 98 07/30/20 14:30 64 26 115/43 (67) 97 07/30/20 14:00 63 25 115/47 (69) 97 07/30/20 14:00 117/49 07/30/20 14:00 25 117/49 Endotracheal Tube 100 07/30/20 14:00 25 117/49 Endotracheal Tube 100 07/30/20 13:00 108/48 07/30/20 13:00 25 108/48 Endotracheal Tube 100 07/30/20 13:00 25 108/48 Endotracheal Tube 100 07/30/20 13:00 62 25 119/49 (72) 98 07/30/20 12:30 62 26 108/48 (68) 99 07/30/20 12:00 100 07/30/20 12:00 114/51 07/30/20 12:00 25 114/51 Endotracheal Tube 100 07/30/20 12:00 25 114/51 Endotracheal Tube 100 07/30/20 12:00 65 26 113/48 (69) 98 07/30/20 12:00 Mechanical Ventilator 07/30/20 12:00 64 07/30/20 11:30 24 116/65 Endotracheal Tube 100 07/30/20 11:30 67 26 116/54 (74) 98 07/30/20 11:00 115/59 07/30/20 11:00 26 115/59 Endotracheal Tube 100 07/30/20 11:00 26 115/59 Endotracheal Tube 100 07/30/20 11:00 69 26 120/49 (72) 96 07/30/20 10:30 71 28 100 07/30/20 10:30 71 26 114/51 (72) 96 07/30/20 10:00 127/48 07/30/20 10:00 27 127/48 Endotracheal Tube 100 07/30/20 10:00 27 127/48 Endotracheal Tube 100 07/30/20 10:00 79 31 127/48 (74) 90 07/30/20 09:00 115/48 07/30/20 09:00 26 115/48 Endotracheal Tube 100 07/30/20 09:00 26 115/48 Endotracheal Tube 100 07/30/20 09:00 75 26 115/48 (70) 95 07/30/20 08:10 28 125/52 Endotracheal Tube 100 07/30/20 08:00 100 07/30/20 08:00 125/52 07/30/20 08:00 26 113/47 Endotracheal Tube 100 07/30/20 08:00 26 125/52 Endotracheal Tube 100 07/30/20 08:00 Mechanical Ventilator 07/30/20 08:00 97.8 71 27 125/52 (76) 93 07/30/20 08:00 73 07/30/20 07:00 94 Mechanical Ventilator 100 07/30/20 07:00 71 28 100 07/30/20 07:00 125/60 07/30/20 07:00 30 145/57 Endotracheal Tube 100 07/30/20 07:00 30 145/57 Endotracheal Tube 100 Intake and Output 07/30/20 07/31/20 19:00 07:00 Intake Total 1360.9735 ml 1319.37209 ml Output Total 720 ml 750 ml Balance 640.9735 ml 569.92951 ml IV Total 1360.9735 ml 1319.82682 ml Output Urine Total 720 ml 750 ml # Bowel Movements 3 Laboratory Tests 07/30/20 21:12: POC Whole Blood Glucose 249H 07/31/20 02:13: Arterial Blood pH 7.283L, Arterial Blood Partial Pressure CO2 59.6*H, Arterial Blood Partial Pressure O2 104.1H, Arterial Blood HCO3 27.6H, Arterial Blood Oxygen Saturation 97.2, Arterial Blood Base Excess -0.4, [place] Test Positive 07/31/20 04:00: White Blood Count 25.7*H, Red Blood Count 4.50L, Hemoglobin 13.7L, Hematocrit 39.7L, Mean Corpuscular Volume 88, Mean Corpuscular Hemoglobin 30.5, Mean Corpuscular Hemoglobin Concent 34.5, Red Cell Distribution Width 13.6, Platelet Count 186, Mean Platelet Volume 6.4L, Neutrophils (%) (Auto) , Lymphocytes (%) (Auto) , Monocytes (%) (Auto) , Eosinophils (%) (Auto) , Basophils (%) (Auto) , Neutrophils % (Manual) [Pending], Lymphocytes % (Manual) [Pending], Platelet Estimate [Pending], Platelet Morphology [Pending], Sodium Level 139, Potassium Level 4.5, Chloride Level 106, Carbon Dioxide Level 29, Anion Gap 4L, Blood Urea Nitrogen 24H, Creatinine 0.8, Estimat Glomerular Filtration Rate > 60, Glucose Level 272H, Uric Acid 3.6, Calcium Level 7.3L, Phosphorus Level 3.7, Magnesium Level 2.2, Total Bilirubin 0.5, Aspartate Amino Transf (AST/SGOT) 22, Alanine Aminotransferase (ALT/SGPT) 20, Alkaline Phosphatase 128H, Lactate Dehydrogenase 515H, Troponin I 0.077H, C-Reactive Protein, Quantitative 21.0H, Pro-B-Type Natriuretic Peptide [Pending], Total Protein 6.0L, Albumin 1.5L, Globulin 4.5, Albumin/Globulin Ratio 0.3L, Triglycerides Level 253H, Cholesterol Level 125, LDL Cholesterol 79, HDL Cholesterol 14L, Cholesterol/HDL Ratio 8.9H, Lipase [Pending] Height (Feet): 5 Height (Inches): 6.00 Weight (Pounds): 172 Objective Current Medications Medications (Trade) Dose Ordered Sig/Dalia Route PRN Reason Start Time Stop Time Status Last Admin Dose Admin Acetaminophen (Tylenol) 500 mg Q6H PRN ORAL Mild Pain (Pain Scale 1-3) 07/21/20 08:15 08/20/20 08:14 07/28/20 09:14 Ascorbic Acid (Vitamin C) 500 mg TWICE A DAY ORAL 07/23/20 09:00 08/22/20 08:59 07/29/20 09:33 Chlorhexidine Gluconate (Hiral-Hex 2%) 1 applic DAILY@1999 TOPIC 07/30/20 20:00 10/28/20 19:59 07/30/20 21:14 Dextrose (Dextrose 50%) 25 ml Q30M PRN IV Hypoglycemia 07/21/20 13:30 10/19/20 13:29 Dextrose (Dextrose 50%) 50 ml Q30M PRN IV Hypoglycemia 07/21/20 13:30 10/19/20 13:29 Dopamine HCl/ Dextrose 250 ml @ 0 mls/hr Q24H IV 07/29/20 23:00 08/01/20 22:58 07/31/20 05:13 Enoxaparin Sodium (Lovenox) 40 mg DAILY SUBQ 07/22/20 09:00 10/20/20 08:59 07/30/20 08:11 Fentanyl Citrate 2500 mcg/Sodium Chloride 250 ml @ 1 mls/hr Q24H IV 07/29/20 17:30 07/31/20 17:29 07/30/20 15:12 Guaifenesin (Robitussin) 200 mg Q4H PRN ORAL For Cough 07/25/20 12:30 10/23/20 12:29 07/29/20 09:32 Insulin Aspart (NovoLOG) BEFORE MEALS AND HS SUBQ 07/21/20 16:30 10/19/20 16:29 07/31/20 05:12 Insulin Aspart (NovoLOG) 8 units TIWM SUBQ 07/29/20 12:00 10/19/20 16:59 07/31/20 06:16 Insulin Detemir (Levemir) 8 units EVERY 12 HOURS SUBQ 07/23/20 09:00 10/19/20 20:59 07/30/20 21:22 Lorazepam (Ativan 2mg/ml 1ml) 1 mg Q4H PRN IV For Anxiety 07/29/20 17:15 08/05/20 17:14 07/30/20 04:05 Mirtazapine (Remeron) 15 mg BEDTIME ORAL 07/22/20 21:00 10/20/20 20:59 07/30/20 21:13 Pantoprazole (Protonix) 40 mg DAILY IVP 07/30/20 09:00 08/29/20 08:59 07/30/20 08:08 Piperacillin Sod/ Tazobactam Sod 3.375 gm/Sodium Chloride 110 ml @ 27.5 mls/hr EVERY 8 HOURS IVPB 07/30/20 12:00 08/04/20 11:59 07/31/20 05:23 Propofol 100 ml @ 2.341 mls/ hr Q12H IV 07/29/20 19:00 07/31/20 18:59 07/30/20 22:32 Sodium Chloride 1,000 ml @ 75 mls/hr [id number] IV 07/29/20 22:30 08/28/20 22:29 07/30/20 22:32 Assessment/Plan Problem List: (1) Pneumonia due to COVID-19 virus ICD Codes: U07.1 - COVID-19; J12.89 - Other viral pneumonia SNOMED: 959024295253421030 (2) Hyperglycemia due to type 2 diabetes mellitus ICD Codes: E11.65 - Type 2 diabetes mellitus with hyperglycemia; J12.89 - Other viral pneumonia SNOMED: 871611245869834, [id number] Qualifiers: Qualified Codes: E11.65 - Type 2 diabetes mellitus with hyperglycemia (3) Acute respiratory failure with hypoxia ICD Codes: J96.01 - Acute respiratory failure with hypoxia; J12.89 - Other viral pneumonia SNOMED: 98237885, 115593307 Status: progressing Assessment/Plan: increase Levemir to 14 units bid DC continue Novolog 8 units ac tid change glucose monitoring and Novolog coverage to every 4 hours Sandor Briceño MD Jul 31, 2020 06:41
[2020-07-31] MEDS: fentaNYL Citrate 2,500 MCG in NS 200 ML IV SCH (06:43)
[2020-07-31] MEDS: propofoL 1,000mg/100ml 100 ML IV SCH ×4 (06:43→23:13)
--- NOTE | 2020-07-31 07:26 | NUR ---
NURSE HAND-OFF REPORT: Latest Vital Signs: Temperature 98.0 , Pulse 81 , B/P 111 /49 , Respiratory Rate 23 , O2 SAT 96 , Mechanical Ventilator, O2 Flow Rate . Vital Sign Comment: Stable on Dopamine EKG Rhythm: Sinus Rhythm Rhythm change?: N MD Notified?: - MD Response: Latest Van Fall Score: 50 Fall Risk: High Risk Safety Measures: Call light Within Reach, Bed Alarm Zone 1, Side Rails Side Rails x2, Bed position Low and Locked. Fall Precautions: Patient Fall Education Report given to . Endorsed that patient has !1052 at bedside to be placed in hospital safe.
--- NOTE | 2020-07-31 08:30 | NUR ---
NURSE NOTES: Report received from CHARMAINE Barajas. patient is sedated at rass scale of -2 with fentanyl at 240mcg/hr and propofol at 50mcg/kg/min, he responds to light touch stimulus and to light pain, et-tube is at 24cm at the lip with a tube of 7.5. he is connected to the ventilator with setting of AC, 26, Tv: 450, Fio2 100% and peep of 15 with saturations of 97%. he has a cough reflex noted when patient was repositioned, heart rate is at 67-75 bpm in sinus rhythm with dopamine at 12mcg/kg/min. Bp is 104/52. He has an OG-tube with no tube feeding at this time, patient has a right femoral TLC with all lumens having blood return and flushes well. there is no oozing or bleeding at insertions site, his sacral skin is intact and is blanchable, he remains on restraints after self extubation this morning. hands are pink and warm with skin intact.
--- NOTE | 2020-07-31 08:45 | NUR ---
NURSE NOTES: Dr. Rashmi Dewey Updated on patient status and increased to 25.7 and temperature of 99.1. he is rounding and assessing patient at the bedside. he remains on Zosyn for antibiotics. no orders given at this time
--- NOTE | 2020-07-31 08:48 | Infectious Diseases Prog Note ---
Assessment/Plan Assessment/Plan IMPRESSION: COVID-19 disease seems to be severe. Diabetes mellitus with hyperglycemia. Hypoxic respiratory failure Lymphocytopenia. Sinus tachycardia Leukocytosis Hypotension ARDS RECOMMENDATION: Continue dexamethasone Finished remdesivir course Continue Zosyn Will f/u cultures Subjective ROS Limited/Unobtainable: Yes Respiratory: Reports: other - selt extubated last night, reintubated in am Cardiovascular: Reports: other - hypotensive, on Dopamin Allergies: Coded Allergies: No Known Allergies (Unverified , 07/21/20) Objective Last 24 Hour Vital Signs Date Time Temp Pulse Resp B/P (MAP) Pulse Ox O2 Delivery O2 Flow Rate FiO2 07/31/20 08:00 100 07/31/20 08:00 99.1 77 26 105/44 (64) 94 07/31/20 07:30 78 26 106/45 (65) 94 07/31/20 07:00 76 26 105/52 (69) 96 07/31/20 07:00 111/49 07/31/20 07:00 23 111/49 Mechanical Ventilator 100 07/31/20 06:43 27 111/47 Mechanical Ventilator 100 07/31/20 06:43 27 111/47 Mechanical Ventilator 100 07/31/20 06:00 81 23 101/51 (68) 96 07/31/20 06:00 112/53 07/31/20 06:00 25 112/63 Mechanical Ventilator 100 07/31/20 05:30 26 119/41 Mechanical Ventilator 100 07/31/20 05:13 122/56 07/31/20 05:00 26 110/43 Mechanical Ventilator 100 07/31/20 05:00 65 26 122/56 (78) 97 07/31/20 04:30 26 110/44 Mechanical Ventilator 100 07/31/20 04:00 Mechanical Ventilator 07/31/20 04:00 110/44 07/31/20 04:00 26 114/54 Mechanical Ventilator 100 07/31/20 04:00 100 07/31/20 04:00 98.0 70 26 117/60 (79) 97 07/31/20 03:55 63 07/31/20 03:30 26 117/54 Mechanical Ventilator 100 07/31/20 03:08 66 26 100 07/31/20 03:00 96/47 07/31/20 03:00 29 96/47 Mechanical Ventilator 100 07/31/20 03:00 78 26 98/61 (73) 98 07/31/20 02:30 26 100/53 Mechanical Ventilator 100 07/31/20 02:30 69 26 91/60 (70) 98 07/31/20 02:15 80 25 102/38 (59) 98 07/31/20 02:15 26 91/60 Mechanical Ventilator 100 07/31/20 02:00 96 26 94/51 (65) 98 07/31/20 02:00 102/38 07/31/20 02:00 26 102/38 Mechanical Ventilator 100 07/31/20 02:00 26 102/38 Mechanical Ventilator 100 07/31/20 01:45 26 94/51 Mechanical Ventilator 100 07/31/20 01:45 26 94/51 Mechanical Ventilator 100 07/31/20 01:45 110 26 104/57 (73) 97 07/31/20 01:39 Mechanical Ventilator 100 07/31/20 01:30 118 26 99/46 (63) 98 07/31/20 01:30 26 104/57 Mechanical Ventilator 100 07/31/20 01:30 26 104/57 Mechanical Ventilator 100 07/31/20 01:15 26 118/10 Mechanical Ventilator 100 07/31/20 01:15 26 118/10 Mechanical Ventilator 100 07/31/20 01:00 128 26 118/10 (46) 99 07/31/20 01:00 118/10 07/31/20 01:00 26 118/10 Mechanical Ventilator 100 07/31/20 01:00 26 118/10 Mechanical Ventilator 100 07/31/20 00:45 57 21 158/74 (102) 97 07/31/20 00:33 53 07/31/20 00:00 97.9 68 16 156/51 (86) 96 07/31/20 00:00 Mechanical Ventilator 07/31/20 00:00 100 07/31/20 00:00 160/64 07/31/20 00:00 21 160/64 Mechanical Ventilator 100 07/31/20 00:00 21 160/64 Mechanical Ventilator 100 07/30/20 23:45 89 16 160/81 (107) 94 07/30/20 23:45 19 156/51 Mechanical Ventilator 100 07/30/20 23:30 10 164/75 Mechanical Ventilator 100 07/30/20 23:00 59 16 169/54 (92) 97 07/30/20 23:00 169/54 07/30/20 23:00 15 169/54 Mechanical Ventilator 100 07/30/20 23:00 15 169/54 Mechanical Ventilator 100 07/30/20 22:57 57 28 100 07/30/20 22:45 84 16 158/73 (101) 94 07/30/20 22:32 18 163/62 Mechanical Ventilator 100 07/30/20 22:00 64 15 145/63 (90) 96 07/30/20 22:00 163/62 07/30/20 22:00 18 163/62 Mechanical Ventilator 100 07/30/20 22:00 18 163/62 Mechanical Ventilator 100 07/30/20 21:57 158/51 07/30/20 21:00 54 19 159/49 (85) 98 07/30/20 21:00 18 151/61 Mechanical Ventilator 100 07/30/20 21:00 18 151/61 Mechanical Ventilator 100 07/30/20 20:00 Mechanical Ventilator 07/30/20 20:00 18 150/53 Mechanical Ventilator 100 07/30/20 20:00 18 150/53 Mechanical Ventilator 100 07/30/20 20:00 97.8 54 17 154/55 (88) 98 07/30/20 20:00 100 07/30/20 19:54 56 07/30/20 19:17 98 Mechanical Ventilator 100 07/30/20 19:15 58 32 100 07/30/20 19:00 20 161/58 Endotracheal Tube 100 07/30/20 19:00 18 163/57 Endotracheal Tube 100 07/30/20 19:00 56 16 163/57 (92) 97 07/30/20 18:00 68 20 139/57 (84) 99 07/30/20 18:00 21 145/41 Endotracheal Tube 100 07/30/20 18:00 21 145/41 Endotracheal Tube 100 07/30/20 17:45 25 139/49 Endotracheal Tube 100 07/30/20 17:30 25 149/72 Endotracheal Tube 100 07/30/20 17:30 70 25 139/49 (79) 99 07/30/20 17:15 25 105/49 Endotracheal Tube 100 07/30/20 17:00 25 118/46 Endotracheal Tube 100 07/30/20 17:00 25 118/46 Endotracheal Tube 100 07/30/20 17:00 60 25 105/49 (67) 99 07/30/20 16:45 25 116/58 Endotracheal Tube 100 07/30/20 16:30 61 25 116/56 (76) 98 07/30/20 16:00 61 07/30/20 16:00 100 07/30/20 16:00 107/50 07/30/20 16:00 25 107/50 Endotracheal Tube 100 07/30/20 16:00 25 107/50 Endotracheal Tube 100 07/30/20 16:00 Mechanical Ventilator 07/30/20 16:00 61 25 117/46 (69) 97 07/30/20 15:30 62 25 112/49 (70) 98 07/30/20 15:12 28 143/67 Endotracheal Tube 100 07/30/20 15:06 143/67 07/30/20 15:00 62 28 100 07/30/20 15:00 143/67 07/30/20 15:00 26 143/67 Endotracheal Tube 100 07/30/20 15:00 26 143/67 Endotracheal Tube 100 07/30/20 15:00 61 24 119/50 (73) 98 07/30/20 15:00 61 24 119/50 (73) 98 07/30/20 14:30 64 26 115/43 (67) 97 07/30/20 14:00 63 25 115/47 (69) 97 07/30/20 14:00 117/49 07/30/20 14:00 25 117/49 Endotracheal Tube 100 07/30/20 14:00 25 117/49 Endotracheal Tube 100 07/30/20 13:00 108/48 07/30/20 13:00 25 108/48 Endotracheal Tube 100 07/30/20 13:00 25 108/48 Endotracheal Tube 100 07/30/20 13:00 62 25 119/49 (72) 98 07/30/20 12:30 62 26 108/48 (68) 99 07/30/20 12:00 100 07/30/20 12:00 114/51 07/30/20 12:00 25 114/51 Endotracheal Tube 100 07/30/20 12:00 25 114/51 Endotracheal Tube 100 07/30/20 12:00 65 26 113/48 (69) 98 07/30/20 12:00 Mechanical Ventilator 07/30/20 12:00 64 07/30/20 11:30 24 116/65 Endotracheal Tube 100 07/30/20 11:30 67 26 116/54 (74) 98 07/30/20 11:00 115/59 07/30/20 11:00 26 115/59 Endotracheal Tube 100 07/30/20 11:00 26 115/59 Endotracheal Tube 100 07/30/20 11:00 69 26 120/49 (72) 96 07/30/20 10:30 71 28 100 07/30/20 10:30 71 26 114/51 (72) 96 07/30/20 10:00 127/48 07/30/20 10:00 27 127/48 Endotracheal Tube 100 07/30/20 10:00 27 127/48 Endotracheal Tube 100 07/30/20 10:00 79 31 127/48 (74) 90 07/30/20 09:00 115/48 07/30/20 09:00 26 115/48 Endotracheal Tube 100 07/30/20 09:00 26 115/48 Endotracheal Tube 100 07/30/20 09:00 75 26 115/48 (70) 95 Height (Feet): 5 Height (Inches): 6.00 Weight (Pounds): 172 HEENT: mucous membranes moist, other - orally intubated Respiratory/Chest: other - on ventilator , [id number]% Cardiovascular: normal rate Abdomen: soft, non tender Extremities: no edema Skin: no lesions Neurologic/Psychiatric: other - sedated Laboratory Tests Test 07/30/20 21:12 07/31/20 02:13 07/31/20 04:00 POC Whole Blood Glucose 249 MG/DL (74-106) H Arterial Blood pH 7.283 (7.350-7.450) Arterial Blood Partial Pressure CO2 59.6 mmHg (35.0-45.0) *H Arterial Blood Partial Pressure O2 104.1 mmHg (75.0-100.0) H Arterial Blood HCO3 27.6 mmol/L (22.0-26.0) H Arterial Blood Oxygen Saturation 97.2 % (95-100) Arterial Blood Base Excess -0.4 (-2-2) [place] Test Positive White Blood Count 25.7 K/UL (4.8-10.8) *H Red Blood Count 4.50 M/UL (4.70-6.10) L Hemoglobin 13.7 G/DL (14.2-18.0) L Hematocrit 39.7 % (42.0-52.0) L Mean Corpuscular Volume 88 FL (80-99) Mean Corpuscular Hemoglobin 30.5 PG (27.0-31.0) Mean Corpuscular Hemoglobin Concent 34.5 G/DL (32.0-36.0) Red Cell Distribution Width 13.6 % (11.6-14.8) Platelet Count 186 K/UL (150-450) Mean Platelet Volume 6.4 FL (6.5-10.1) L Neutrophils (%) (Auto) % (45.0-75.0) Lymphocytes (%) (Auto) % (20.0-45.0) Monocytes (%) (Auto) % (1.0-10.0) Eosinophils (%) (Auto) % (0.0-3.0) Basophils (%) (Auto) % (0.0-2.0) Neutrophils % (Manual) Pending Lymphocytes % (Manual) Pending Platelet Estimate Pending Platelet Morphology Pending Sodium Level 139 MMOL/L (136-145) Potassium Level 4.5 MMOL/L (3.5-5.1) Chloride Level 106 MMOL/L (98-107) Carbon Dioxide Level 29 MMOL/L (21-32) Anion Gap 4 mmol/L (5-15) L Blood Urea Nitrogen 24 mg/dL (7-18) H Creatinine 0.8 MG/DL (0.55-1.30) Estimat Glomerular Filtration Rate > 60 mL/min (>60) Glucose Level 272 MG/DL (74-106) H Uric Acid 3.6 MG/DL (2.6-7.2) Calcium Level 7.3 MG/DL (8.5-10.1) L Phosphorus Level 3.7 MG/DL (2.5-4.9) Magnesium Level 2.2 MG/DL (1.8-2.4) Total Bilirubin 0.5 MG/DL (0.2-1.0) Aspartate Amino Transf (AST/SGOT) 22 U/L (15-37) Alanine Aminotransferase (ALT/SGPT) 20 U/L (12-78) Alkaline Phosphatase 128 U/L (46-116) H Lactate Dehydrogenase 515 U/L (81-234) H Troponin I 0.077 ng/mL (0.000-0.056) C-Reactive Protein, Quantitative 21.0 mg/dL (0.00-0.90) H Pro-B-Type Natriuretic Peptide Pending Total Protein 6.0 G/DL (6.4-8.2) L Albumin 1.5 G/DL (3.4-5.0) L Globulin 4.5 g/dL Albumin/Globulin Ratio 0.3 (1.0-2.7) L Triglycerides Level 253 MG/DL (30-150) H Cholesterol Level 125 MG/DL (< 200) LDL Cholesterol 79 mg/dL (<100) HDL Cholesterol 14 MG/DL (40-60) L Cholesterol/HDL Ratio 8.9 (3.3-4.4) H Lipase 41 U/L (73-393) L Current Medications Medications (Trade) Dose Ordered Sig/Dalia Route PRN Reason Start Time Stop Time Status Last Admin Dose Admin Acetaminophen (Tylenol) 500 mg Q6H PRN ORAL Mild Pain (Pain Scale 1-3) 07/21/20 08:15 08/20/20 08:14 07/28/20 09:14 Ascorbic Acid (Vitamin C) 500 mg TWICE A DAY ORAL 07/23/20 09:00 08/22/20 08:59 07/29/20 09:33 Chlorhexidine Gluconate (Hiral-Hex 2%) 1 applic DAILY@2000 TOPIC 07/30/20 20:00 10/28/20 19:59 07/30/20 21:14 Dextrose (Dextrose 50%) 25 ml Q30M PRN IV Hypoglycemia 07/21/20 13:30 10/19/20 13:29 Dextrose (Dextrose 50%) 50 ml Q30M PRN IV Hypoglycemia 07/21/20 13:30 10/19/20 13:29 Dopamine HCl/ Dextrose 250 ml @ 0 mls/hr Q24H IV 07/29/20 23:00 08/01/20 22:58 07/31/20 05:13 Enoxaparin Sodium (Lovenox) 40 mg DAILY SUBQ 07/22/20 09:00 10/20/20 08:59 07/30/20 08:11 Fentanyl Citrate 2500 mcg/Sodium Chloride 250 ml @ 1 mls/hr Q24H IV 07/29/20 17:30 07/31/20 17:29 07/31/20 06:43 Guaifenesin (Robitussin) 200 mg Q4H PRN ORAL For Cough 07/25/20 12:30 10/23/20 12:29 07/29/20 09:32 Insulin Aspart (NovoLOG) EVERY 4 HOURS SUBQ 07/31/20 09:00 10/19/20 16:29 Insulin Detemir (Levemir) 14 units EVERY 12 HOURS SUBQ 07/31/20 09:00 10/19/20 20:59 Lorazepam (Ativan 2mg/ml 1ml) 1 mg Q4H PRN IV For Anxiety 07/29/20 17:15 08/05/20 17:14 07/30/20 04:05 Mirtazapine (Remeron) 15 mg BEDTIME ORAL 07/22/20 21:00 10/20/20 20:59 07/30/20 21:13 Pantoprazole (Protonix) 40 mg DAILY IVP 07/30/20 09:00 08/29/20 08:59 07/30/20 08:08 Piperacillin Sod/ Tazobactam Sod 3.375 gm/Sodium Chloride 110 ml @ 27.5 mls/hr EVERY 8 HOURS IVPB 07/30/20 12:00 08/04/20 11:59 07/31/20 05:23 Propofol 100 ml @ 2.341 mls/ hr Q12H IV 07/29/20 19:00 07/31/20 18:59 07/31/20 06:43 Sodium Chloride 1,000 ml @ 75 mls/hr [id number] IV 07/29/20 22:30 08/28/20 22:29 07/30/20 22:32 Christian Caraballo MD Jul 31, 2020 08:47
[2020-07-31] MEDS: Ascorbic Acid 500mg tab ORAL SCH ×2 (09:26→17:26)
[2020-07-31] MEDS: Pantoprazole Inj IVP SCH (09:26)
[2020-07-31] MEDS: Enoxaparin 40mg Inj SUBQ SCH (09:27)
[2020-07-31] MEDS: Levemir Flexpen SUBQ SCH ×2 (09:29→20:25)
--- NOTE | 2020-07-31 09:59 | NUR ---
LAND SURVEY TECHNICIAN NOTE Pt is sedated and is currently connected on ventilator. SW left a vm to pt's , Estefany Morales [phone] for call back to obtain information.
--- NOTE | 2020-07-31 10:21 | NUR ---
NURSE NOTES: Dr. Miller updated at the bedside regarding patient condition, made aware patient remains on propofol at 45mcg/kg/min and 240mcg/hr, Ordered to place patient on NPO.
--- NOTE | 2020-07-31 11:31 | Cardiac Electrophysiology PN ---
Assessment/Plan Assessment/Plan 1. Troponin elevation. This could be due to stress of respiratory failure in this patient with COVID pneumonia. EF 65% 2. COVID pneumonia and respiratory failure. The patient is on the ventilator with 100% FiO2 and PEEP of 15. Reintubated 07/31/20 3. Hypotension. Continue dopamine 12 mcg as the patient was also bradycardic, heart rate on dopamine is in only 70s. 4. Respiratory failure, on the ventilator. 5. Diabetes. Further evaluation and management. 6. Sepsis. The patient is on Zosyn per Dr. Christian Caraballo. DW RN in ICU Subjective Subjective Self extubated and reintubated at 1 am in ICU on the Vent with 100% Fio2 and PEEP 15 Objective Last 24 Hour Vital Signs Date Time Temp Pulse Resp B/P (MAP) Pulse Ox O2 Delivery O2 Flow Rate FiO2 07/31/20 10:30 82 26 98/45 (62) 95 07/31/20 10:00 75 26 109/54 (72) 97 07/31/20 10:00 89/43 07/31/20 10:00 26 89/43 Mechanical Ventilator 100 07/31/20 10:00 26 89/43 Mechanical Ventilator 100 07/31/20 09:30 75 26 101/49 (66) 97 07/31/20 09:00 73 26 104/52 (69) 97 07/31/20 09:00 104/52 07/31/20 09:00 26 104/52 Mechanical Ventilator 100 07/31/20 09:00 26 104/52 Mechanical Ventilator 100 07/31/20 08:30 73 25 106/49 (68) 97 07/31/20 08:00 100 07/31/20 08:00 105/44 07/31/20 08:00 26 105/44 Mechanical Ventilator 100 07/31/20 08:00 26 105/44 Mechanical Ventilator 100 07/31/20 08:00 99.1 77 26 105/44 (64) 94 07/31/20 08:00 Mechanical Ventilator 07/31/20 08:00 69 07/31/20 07:30 78 26 106/45 (65) 94 07/31/20 07:08 96 Mechanical Ventilator 100 07/31/20 07:08 74 26 100 07/31/20 07:00 76 26 105/52 (69) 96 07/31/20 07:00 111/49 07/31/20 07:00 23 111/49 Mechanical Ventilator 100 07/31/20 06:43 27 111/47 Mechanical Ventilator 100 07/31/20 06:43 27 111/47 Mechanical Ventilator 100 07/31/20 06:00 81 23 101/51 (68) 96 07/31/20 06:00 112/53 07/31/20 06:00 25 112/63 Mechanical Ventilator 100 07/31/20 05:30 26 119/41 Mechanical Ventilator 100 07/31/20 05:13 122/56 07/31/20 05:00 26 110/43 Mechanical Ventilator 100 07/31/20 05:00 65 26 122/56 (78) 97 07/31/20 04:30 26 110/44 Mechanical Ventilator 100 07/31/20 04:00 Mechanical Ventilator 07/31/20 04:00 110/44 07/31/20 04:00 26 114/54 Mechanical Ventilator 100 07/31/20 04:00 100 07/31/20 04:00 98.0 70 26 117/60 (79) 97 07/31/20 03:55 63 07/31/20 03:30 26 117/54 Mechanical Ventilator 100 07/31/20 03:08 66 26 100 07/31/20 03:00 96/47 07/31/20 03:00 29 96/47 Mechanical Ventilator 100 07/31/20 03:00 78 26 98/61 (73) 98 07/31/20 02:30 26 100/53 Mechanical Ventilator 100 07/31/20 02:30 69 26 91/60 (70) 98 07/31/20 02:15 80 25 102/38 (59) 98 07/31/20 02:15 26 91/60 Mechanical Ventilator 100 07/31/20 02:00 96 26 94/51 (65) 98 07/31/20 02:00 102/38 07/31/20 02:00 26 102/38 Mechanical Ventilator 100 07/31/20 02:00 26 102/38 Mechanical Ventilator 100 07/31/20 01:45 26 94/51 Mechanical Ventilator 100 07/31/20 01:45 26 94/51 Mechanical Ventilator 100 07/31/20 01:45 110 26 104/57 (73) 97 07/31/20 01:39 Mechanical Ventilator 100 07/31/20 01:30 118 26 99/46 (63) 98 07/31/20 01:30 26 104/57 Mechanical Ventilator 100 07/31/20 01:30 26 104/57 Mechanical Ventilator 100 07/31/20 01:15 26 118/10 Mechanical Ventilator 100 07/31/20 01:15 26 118/10 Mechanical Ventilator 100 07/31/20 01:00 128 26 118/10 (46) 99 07/31/20 01:00 118/10 07/31/20 01:00 26 118/10 Mechanical Ventilator 100 07/31/20 01:00 26 118/10 Mechanical Ventilator 100 07/31/20 00:45 57 21 158/74 (102) 97 07/31/20 00:33 53 07/31/20 00:00 97.9 68 16 156/51 (86) 96 07/31/20 00:00 Mechanical Ventilator 07/31/20 00:00 100 07/31/20 00:00 160/64 07/31/20 00:00 21 160/64 Mechanical Ventilator 100 07/31/20 00:00 21 160/64 Mechanical Ventilator 100 07/30/20 23:45 89 16 160/81 (107) 94 07/30/20 23:45 19 156/51 Mechanical Ventilator 100 07/30/20 23:30 10 164/75 Mechanical Ventilator 100 07/30/20 23:00 59 16 169/54 (92) 97 07/30/20 23:00 169/54 07/30/20 23:00 15 169/54 Mechanical Ventilator 100 07/30/20 23:00 15 169/54 Mechanical Ventilator 100 07/30/20 22:57 57 28 100 07/30/20 22:45 84 16 158/73 (101) 94 07/30/20 22:32 18 163/62 Mechanical Ventilator 100 07/30/20 22:00 64 15 145/63 (90) 96 07/30/20 22:00 163/62 07/30/20 22:00 18 163/62 Mechanical Ventilator 100 07/30/20 22:00 18 163/62 Mechanical Ventilator 100 07/30/20 21:57 158/51 07/30/20 21:00 54 19 159/49 (85) 98 07/30/20 21:00 18 151/61 Mechanical Ventilator 100 07/30/20 21:00 18 151/61 Mechanical Ventilator 100 07/30/20 20:00 Mechanical Ventilator 07/30/20 20:00 18 150/53 Mechanical Ventilator 100 07/30/20 20:00 18 150/53 Mechanical Ventilator 100 07/30/20 20:00 97.8 54 17 154/55 (88) 98 07/30/20 20:00 100 07/30/20 19:54 56 07/30/20 19:17 98 Mechanical Ventilator 100 07/30/20 19:15 58 32 100 07/30/20 19:00 20 161/58 Endotracheal Tube 100 07/30/20 19:00 18 163/57 Endotracheal Tube 100 07/30/20 19:00 56 16 163/57 (92) 97 07/30/20 18:00 68 20 139/57 (84) 99 07/30/20 18:00 21 145/41 Endotracheal Tube 100 07/30/20 18:00 21 145/41 Endotracheal Tube 100 07/30/20 17:45 25 139/49 Endotracheal Tube 100 07/30/20 17:30 25 149/72 Endotracheal Tube 100 07/30/20 17:30 70 25 139/49 (79) 99 07/30/20 17:15 25 105/49 Endotracheal Tube 100 07/30/20 17:00 25 118/46 Endotracheal Tube 100 07/30/20 17:00 25 118/46 Endotracheal Tube 100 07/30/20 17:00 60 25 105/49 (67) 99 07/30/20 16:45 25 116/58 Endotracheal Tube 100 07/30/20 16:30 61 25 116/56 (76) 98 07/30/20 16:00 61 07/30/20 16:00 100 07/30/20 16:00 107/50 07/30/20 16:00 25 107/50 Endotracheal Tube 100 07/30/20 16:00 25 107/50 Endotracheal Tube 100 07/30/20 16:00 Mechanical Ventilator 07/30/20 16:00 61 25 117/46 (69) 97 07/30/20 15:30 62 25 112/49 (70) 98 07/30/20 15:12 28 143/67 Endotracheal Tube 100 07/30/20 15:06 143/67 07/30/20 15:00 62 28 100 07/30/20 15:00 143/67 07/30/20 15:00 26 143/67 Endotracheal Tube 100 07/30/20 15:00 26 143/67 Endotracheal Tube 100 07/30/20 15:00 61 24 119/50 (73) 98 07/30/20 15:00 61 24 119/50 (73) 98 07/30/20 14:30 64 26 115/43 (67) 97 07/30/20 14:00 63 25 115/47 (69) 97 07/30/20 14:00 117/49 07/30/20 14:00 25 117/49 Endotracheal Tube 100 07/30/20 14:00 25 117/49 Endotracheal Tube 100 07/30/20 13:00 108/48 07/30/20 13:00 25 108/48 Endotracheal Tube 100 07/30/20 13:00 25 108/48 Endotracheal Tube 100 07/30/20 13:00 62 25 119/49 (72) 98 07/30/20 12:30 62 26 108/48 (68) 99 07/30/20 12:00 100 07/30/20 12:00 114/51 07/30/20 12:00 25 114/51 Endotracheal Tube 100 07/30/20 12:00 25 114/51 Endotracheal Tube 100 07/30/20 12:00 65 26 113/48 (69) 98 07/30/20 12:00 Mechanical Ventilator 07/30/20 12:00 64 07/30/20 11:30 24 116/65 Endotracheal Tube 100 07/30/20 11:30 67 26 116/54 (74) 98 Intake and Output 07/30/20 07/31/20 19:00 07:00 Intake Total 1360.9735 ml 1481.29291 ml Output Total 720 ml 850 ml Balance 640.9735 ml 631.64013 ml IV Total 1360.9735 ml 1481.69664 ml Output Urine Total 720 ml 850 ml # Bowel Movements 3 Laboratory Tests Test 07/30/20 21:12 07/31/20 02:13 07/31/20 04:00 POC Whole Blood Glucose 249 MG/DL (74-106) H Arterial Blood pH 7.283 (7.350-7.450) Arterial Blood Partial Pressure CO2 59.6 mmHg (35.0-45.0) *H Arterial Blood Partial Pressure O2 104.1 mmHg (75.0-100.0) H Arterial Blood HCO3 27.6 mmol/L (22.0-26.0) H Arterial Blood Oxygen Saturation 97.2 % (95-100) Arterial Blood Base Excess -0.4 (-2-2) [place] Test Positive White Blood Count 25.7 K/UL (4.8-10.8) *H Red Blood Count 4.50 M/UL (4.70-6.10) L Hemoglobin 13.7 G/DL (14.2-18.0) L Hematocrit 39.7 % (42.0-52.0) L Mean Corpuscular Volume 88 FL (80-99) Mean Corpuscular Hemoglobin 30.5 PG (27.0-31.0) Mean Corpuscular Hemoglobin Concent 34.5 G/DL (32.0-36.0) Red Cell Distribution Width 13.6 % (11.6-14.8) Platelet Count 186 K/UL (150-450) Mean Platelet Volume 6.4 FL (6.5-10.1) L Neutrophils (%) (Auto) % (45.0-75.0) Lymphocytes (%) (Auto) % (20.0-45.0) Monocytes (%) (Auto) % (1.0-10.0) Eosinophils (%) (Auto) % (0.0-3.0) Basophils (%) (Auto) % (0.0-2.0) Differential Total Cells Counted 100 Neutrophils % (Manual) 95 % (45-75) H Lymphocytes % (Manual) 2 % (20-45) L Monocytes % (Manual) 3 % (1-10) Eosinophils % (Manual) 0 % (0-3) Basophils % (Manual) 0 % (0-2) Band Neutrophils 0 % (0-8) Platelet Estimate Adequate Platelet Morphology Normal Red Blood Cell Morphology Normal Sodium Level 139 MMOL/L (136-145) Potassium Level 4.5 MMOL/L (3.5-5.1) Chloride Level 106 MMOL/L (98-107) Carbon Dioxide Level 29 MMOL/L (21-32) Anion Gap 4 mmol/L (5-15) L Blood Urea Nitrogen 24 mg/dL (7-18) H Creatinine 0.8 MG/DL (0.55-1.30) Estimat Glomerular Filtration Rate > 60 mL/min (>60) Glucose Level 272 MG/DL (74-106) H Uric Acid 3.6 MG/DL (2.6-7.2) Calcium Level 7.3 MG/DL (8.5-10.1) L Phosphorus Level 3.7 MG/DL (2.5-4.9) Magnesium Level 2.2 MG/DL (1.8-2.4) Total Bilirubin 0.5 MG/DL (0.2-1.0) Aspartate Amino Transf (AST/SGOT) 22 U/L (15-37) Alanine Aminotransferase (ALT/SGPT) 20 U/L (12-78) Alkaline Phosphatase 128 U/L (46-116) H Lactate Dehydrogenase 515 U/L (81-234) H Troponin I 0.077 ng/mL (0.000-0.056) C-Reactive Protein, Quantitative 21.0 mg/dL (0.00-0.90) H Pro-B-Type Natriuretic Peptide Pending Total Protein 6.0 G/DL (6.4-8.2) L Albumin 1.5 G/DL (3.4-5.0) L Globulin 4.5 g/dL Albumin/Globulin Ratio 0.3 (1.0-2.7) L Triglycerides Level 253 MG/DL (30-150) H Cholesterol Level 125 MG/DL (< 200) LDL Cholesterol 79 mg/dL (<100) HDL Cholesterol 14 MG/DL (40-60) L Cholesterol/HDL Ratio 8.9 (3.3-4.4) H Lipase 41 U/L (73-393) L Objective HEAD AND NECK: Orally intubated. LUNGS: Decreased breath sounds and coarse rhonchi. CARDIOVASCULAR: Regular S1 and S2 with no gallop or murmur. ABDOMEN: Soft. EXTREMITIES: No pitting edema. Jeancarlos Carranza MD Jul 31, 2020 11:31
--- NOTE | 2020-07-31 11:35 | NUR ---
NURSE NOTES: Dr. Monique updated at the bedside regarding patient condition, he was reintubated this morning after self-extubation, he remains saturating at 95-97% with fio2 of 100% and peep of 15. ordered to maintain current ventilator setting of AC 26, TV: 450, fio2 of 1005 and peep of 15. also to maintain on fentanyl and propofol. made aware of the elevation of the triglycerides to 253, but ordered to maintain propofol drip for one more day and will reassess the triglycerides the following morning 08/01/20 at 0400. currently the patient is NPO with OG-tube clamped
--- NOTE | 2020-07-31 11:45 | NUR ---
[facility] FAXED TO [facility] [phone]
--- NOTE | 2020-07-31 13:21 | NUR ---
NURSE NOTES: Dr. Monique called to to place order for tube feeding at vital A.F 1.2 at 15ml/hr to goal of 35ml/hr. Will start tube feeding though OG-tube.
--- NOTE | 2020-07-31 13:21 | Nephrology Progress Note ---
Assessment/Plan Problem List: (1) Pneumonia due to COVID-19 virus (2) Acute respiratory failure with hypoxia (3) Hyperglycemia due to type 2 diabetes mellitus (4) Oliguria Assessment: Likely due to hypotension Assessment Oliguria due to hypotension On low-dose pressors COVID-19 disease seems to be severe. Diabetes mellitus with hyperglycemia. Hypoxic respiratory failure Lymphocytopenia. Sinus tachycardia Leukocytosis Plan July 31: Urine output improved. Renal parameters and electrolytes stable. Continue per consultants. Continue per pulmonary Continue per ID Keep the blood pressure over 100 systolic Monitor renal parameters and urine output Avoid nephrotoxic's Per orders Subjective ROS Limited/Unobtainable: Yes Objective Objective Last 24 Hour Vital Signs Date Time Temp Pulse Resp B/P (MAP) Pulse Ox O2 Delivery O2 Flow Rate FiO2 07/31/20 13:00 98/52 07/31/20 13:00 127 15 98/52 (67) 91 07/31/20 12:30 86 26 103/50 (67) 95 07/31/20 12:02 26 92/49 Mechanical Ventilator 100 07/31/20 12:00 Mechanical Ventilator 07/31/20 12:00 100 07/31/20 12:00 100.4 86 26 92/49 (63) 96 07/31/20 11:46 87 07/31/20 11:30 85 26 106/52 (70) 94 07/31/20 11:00 74 26 112/47 (68) 96 07/31/20 10:30 82 26 98/45 (62) 95 07/31/20 10:00 75 26 109/54 (72) 97 07/31/20 10:00 89/43 07/31/20 10:00 26 89/43 Mechanical Ventilator 100 07/31/20 10:00 26 89/43 Mechanical Ventilator 100 07/31/20 09:30 75 26 101/49 (66) 97 07/31/20 09:00 73 26 104/52 (69) 97 07/31/20 09:00 104/52 07/31/20 09:00 26 104/52 Mechanical Ventilator 100 07/31/20 09:00 26 104/52 Mechanical Ventilator 100 07/31/20 08:30 73 25 106/49 (68) 97 07/31/20 08:00 100 07/31/20 08:00 105/44 07/31/20 08:00 26 105/44 Mechanical Ventilator 100 07/31/20 08:00 26 105/44 Mechanical Ventilator 100 07/31/20 08:00 99.1 77 26 105/44 (64) 94 07/31/20 08:00 Mechanical Ventilator 07/31/20 08:00 69 07/31/20 07:30 78 26 106/45 (65) 94 07/31/20 07:08 96 Mechanical Ventilator 100 07/31/20 07:08 74 26 100 07/31/20 07:00 76 26 105/52 (69) 96 07/31/20 07:00 111/49 07/31/20 07:00 23 111/49 Mechanical Ventilator 100 07/31/20 06:43 27 111/47 Mechanical Ventilator 100 07/31/20 06:43 27 111/47 Mechanical Ventilator 100 07/31/20 06:00 81 23 101/51 (68) 96 07/31/20 06:00 112/53 07/31/20 06:00 25 112/63 Mechanical Ventilator 100 07/31/20 05:30 26 119/41 Mechanical Ventilator 100 07/31/20 05:13 122/56 07/31/20 05:00 26 110/43 Mechanical Ventilator 100 07/31/20 05:00 65 26 122/56 (78) 97 07/31/20 04:30 26 110/44 Mechanical Ventilator 100 07/31/20 04:00 Mechanical Ventilator 07/31/20 04:00 110/44 07/31/20 04:00 26 114/54 Mechanical Ventilator 100 07/31/20 04:00 100 07/31/20 04:00 98.0 70 26 117/60 (79) 97 07/31/20 03:55 63 07/31/20 03:30 26 117/54 Mechanical Ventilator 100 07/31/20 03:08 66 26 100 07/31/20 03:00 96/47 07/31/20 03:00 29 96/47 Mechanical Ventilator 100 07/31/20 03:00 78 26 98/61 (73) 98 07/31/20 02:30 26 100/53 Mechanical Ventilator 100 07/31/20 02:30 69 26 91/60 (70) 98 07/31/20 02:15 80 25 102/38 (59) 98 07/31/20 02:15 26 91/60 Mechanical Ventilator 100 07/31/20 02:00 96 26 94/51 (65) 98 07/31/20 02:00 102/38 07/31/20 02:00 26 102/38 Mechanical Ventilator 100 07/31/20 02:00 26 102/38 Mechanical Ventilator 100 07/31/20 01:45 26 94/51 Mechanical Ventilator 100 07/31/20 01:45 26 94/51 Mechanical Ventilator 100 07/31/20 01:45 110 26 104/57 (73) 97 07/31/20 01:39 Mechanical Ventilator 100 07/31/20 01:30 118 26 99/46 (63) 98 07/31/20 01:30 26 104/57 Mechanical Ventilator 100 07/31/20 01:30 26 104/57 Mechanical Ventilator 100 07/31/20 01:15 26 118/10 Mechanical Ventilator 100 07/31/20 01:15 26 118/10 Mechanical Ventilator 100 07/31/20 01:00 128 26 118/10 (46) 99 07/31/20 01:00 118/10 07/31/20 01:00 26 118/10 Mechanical Ventilator 100 07/31/20 01:00 26 118/10 Mechanical Ventilator 100 07/31/20 00:45 57 21 158/74 (102) 97 07/31/20 00:33 53 07/31/20 00:00 97.9 68 16 156/51 (86) 96 07/31/20 00:00 Mechanical Ventilator 07/31/20 00:00 100 07/31/20 00:00 160/64 07/31/20 00:00 21 160/64 Mechanical Ventilator 100 07/31/20 00:00 21 160/64 Mechanical Ventilator 100 07/30/20 23:45 89 16 160/81 (107) 94 07/30/20 23:45 19 156/51 Mechanical Ventilator 100 07/30/20 23:30 10 164/75 Mechanical Ventilator 100 07/30/20 23:00 59 16 169/54 (92) 97 07/30/20 23:00 169/54 07/30/20 23:00 15 169/54 Mechanical Ventilator 100 07/30/20 23:00 15 169/54 Mechanical Ventilator 100 07/30/20 22:57 57 28 100 07/30/20 22:45 84 16 158/73 (101) 94 07/30/20 22:32 18 163/62 Mechanical Ventilator 100 07/30/20 22:00 64 15 145/63 (90) 96 07/30/20 22:00 163/62 07/30/20 22:00 18 163/62 Mechanical Ventilator 100 07/30/20 22:00 18 163/62 Mechanical Ventilator 100 07/30/20 21:57 158/51 07/30/20 21:00 54 19 159/49 (85) 98 07/30/20 21:00 18 151/61 Mechanical Ventilator 100 07/30/20 21:00 18 151/61 Mechanical Ventilator 100 07/30/20 20:00 Mechanical Ventilator 07/30/20 20:00 18 150/53 Mechanical Ventilator 100 07/30/20 20:00 18 150/53 Mechanical Ventilator 100 07/30/20 20:00 97.8 54 17 154/55 (88) 98 07/30/20 20:00 100 07/30/20 19:54 56 07/30/20 19:17 98 Mechanical Ventilator 100 07/30/20 19:15 58 32 100 07/30/20 19:00 20 161/58 Endotracheal Tube 100 07/30/20 19:00 18 163/57 Endotracheal Tube 100 07/30/20 19:00 56 16 163/57 (92) 97 07/30/20 18:00 68 20 139/57 (84) 99 07/30/20 18:00 21 145/41 Endotracheal Tube 100 07/30/20 18:00 21 145/41 Endotracheal Tube 100 07/30/20 17:45 25 139/49 Endotracheal Tube 100 07/30/20 17:30 25 149/72 Endotracheal Tube 100 07/30/20 17:30 70 25 139/49 (79) 99 07/30/20 17:15 25 105/49 Endotracheal Tube 100 07/30/20 17:00 25 118/46 Endotracheal Tube 100 07/30/20 17:00 25 118/46 Endotracheal Tube 100 07/30/20 17:00 60 25 105/49 (67) 99 07/30/20 16:45 25 116/58 Endotracheal Tube 100 07/30/20 16:30 61 25 116/56 (76) 98 07/30/20 16:00 61 07/30/20 16:00 100 07/30/20 16:00 107/50 07/30/20 16:00 25 107/50 Endotracheal Tube 100 07/30/20 16:00 25 107/50 Endotracheal Tube 100 07/30/20 16:00 Mechanical Ventilator 07/30/20 16:00 61 25 117/46 (69) 97 07/30/20 15:30 62 25 112/49 (70) 98 07/30/20 15:12 28 143/67 Endotracheal Tube 100 07/30/20 15:06 143/67 07/30/20 15:00 62 28 100 07/30/20 15:00 143/67 07/30/20 15:00 26 143/67 Endotracheal Tube 100 07/30/20 15:00 26 143/67 Endotracheal Tube 100 07/30/20 15:00 61 24 119/50 (73) 98 07/30/20 15:00 61 24 119/50 (73) 98 07/30/20 14:30 64 26 115/43 (67) 97 07/30/20 14:00 63 25 115/47 (69) 97 07/30/20 14:00 117/49 07/30/20 14:00 25 117/49 Endotracheal Tube 100 07/30/20 14:00 25 117/49 Endotracheal Tube 100 Intake and Output 07/30/20 07/31/20 19:00 07:00 Intake Total 1360.9735 ml 1481.95436 ml Output Total 720 ml 850 ml Balance 640.9735 ml 631.20389 ml IV Total 1360.9735 ml 1481.58187 ml Output Urine Total 720 ml 850 ml # Bowel Movements 3 Current Medications Medications (Trade) Dose Ordered Sig/Dalia Route PRN Reason Start Time Stop Time Status Last Admin Dose Admin Acetaminophen (Tylenol) 500 mg Q6H PRN ORAL Mild Pain (Pain Scale 1-3) 07/21/20 08:15 08/20/20 08:14 07/28/20 09:14 Ascorbic Acid (Vitamin C) 500 mg TWICE A DAY ORAL 07/23/20 09:00 08/22/20 08:59 07/31/20 09:26 Chlorhexidine Gluconate (Hiral-Hex 2%) 1 applic DAILY@1999 TOPIC 07/30/20 20:00 10/28/20 19:59 07/30/20 21:14 Dextrose (Dextrose 50%) 25 ml Q30M PRN IV Hypoglycemia 07/21/20 13:30 10/19/20 13:29 Dextrose (Dextrose 50%) 50 ml Q30M PRN IV Hypoglycemia 07/21/20 13:30 10/19/20 13:29 Dopamine HCl/ Dextrose 250 ml @ 0 mls/hr Q24H IV 07/29/20 23:00 08/01/20 22:58 07/31/20 13:00 Enoxaparin Sodium (Lovenox) 40 mg DAILY SUBQ 07/22/20 09:00 10/20/20 08:59 07/31/20 09:27 Fentanyl Citrate 2500 mcg/Sodium Chloride 250 ml @ 1 mls/hr Q24H IV 07/29/20 17:30 07/31/20 17:29 07/31/20 06:43 Guaifenesin (Robitussin) 200 mg Q4H PRN ORAL For Cough 07/25/20 12:30 10/23/20 12:29 07/29/20 09:32 Insulin Aspart (NovoLOG) EVERY 4 HOURS SUBQ 07/31/20 09:00 10/19/20 16:29 Insulin Detemir (Levemir) 14 units EVERY 12 HOURS SUBQ 07/31/20 09:00 10/19/20 20:59 07/31/20 09:29 Lorazepam (Ativan 2mg/ml 1ml) 1 mg Q4H PRN IV For Anxiety 07/29/20 17:15 08/05/20 17:14 07/30/20 04:05 Mirtazapine (Remeron) 15 mg BEDTIME ORAL 07/22/20 21:00 10/20/20 20:59 07/30/20 21:13 Pantoprazole (Protonix) 40 mg DAILY IVP 07/30/20 09:00 08/29/20 08:59 07/31/20 09:26 Piperacillin Sod/ Tazobactam Sod 3.375 gm/Sodium Chloride 110 ml @ 27.5 mls/hr EVERY 8 HOURS IVPB 07/30/20 12:00 08/04/20 11:59 07/31/20 05:23 Propofol 100 ml @ 2.341 mls/ hr Q12H IV 07/29/20 19:00 07/31/20 18:59 07/31/20 12:02 Sodium Chloride 1,000 ml @ 75 mls/hr [id number] IV 07/29/20 22:30 08/28/20 22:29 07/31/20 12:00 Laboratory Tests 07/30/20 21:12: POC Whole Blood Glucose 249H 07/31/20 02:13: Arterial Blood pH 7.283L, Arterial Blood Partial Pressure CO2 59.6*H, Arterial Blood Partial Pressure O2 104.1H, Arterial Blood HCO3 27.6H, Arterial Blood Oxygen Saturation 97.2, Arterial Blood Base Excess -0.4, Francisco Test Positive 07/31/20 04:00: White Blood Count 25.7*H, Red Blood Count 4.50L, Hemoglobin 13.7L, Hematocrit 39.7L, Mean Corpuscular Volume 88, Mean Corpuscular Hemoglobin 30.5, Mean Corpuscular Hemoglobin Concent 34.5, Red Cell Distribution Width 13.6, Platelet Count 186, Mean Platelet Volume 6.4L, Neutrophils (%) (Auto) , Lymphocytes (%) (Auto) , Monocytes (%) (Auto) , Eosinophils (%) (Auto) , Basophils (%) (Auto) , Differential Total Cells Counted 100, Neutrophils % (Manual) 95H, Lymphocytes % (Manual) 2L, Monocytes % (Manual) 3, Eosinophils % (Manual) 0, Basophils % (Manual) 0, Band Neutrophils 0, Platelet Estimate Adequate, Platelet Morphology Normal, Red Blood Cell Morphology Normal, Sodium Level 139, Potassium Level 4.5, Chloride Level 106, Carbon Dioxide Level 29, Anion Gap 4L, Blood Urea Nitrogen 24H, Creatinine 0.8, Estimat Glomerular Filtration Rate > 60, Glucose Level 272H , Uric Acid 3.6, Calcium Level 7.3L, Phosphorus Level 3.7, Magnesium Level 2.2, Total Bilirubin 0.5, Aspartate Amino Transf (AST/SGOT) 22, Alanine Aminotransferase (ALT/SGPT) 20, Alkaline Phosphatase 128H, Lactate Dehydrogenase 515H, Troponin I 0.077H, C-Reactive Protein, Quantitative 21.0H, Pro-B-Type Natriuretic Peptide [Pending], Total Protein 6.0L, Albumin 1.5L, Globulin 4.5, Albumin/Globulin Ratio 0.3L, Triglycerides Level 253H, Cholesterol Level 125, LDL Cholesterol 79, HDL Cholesterol 14L, Cholesterol/HDL Ratio 8.9H, Lipase 41L 07/31/20 12:55: POC Whole Blood Glucose 94 Height (Feet): 5 Height (Inches): 6.00 Weight (Pounds): 172 General Appearance: no apparent distress EENT: other - Intubated on ventilator Cardiovascular: tachycardia, other - Variable rate Respiratory/Chest: decreased breath sounds Abdomen: distended José Luis Preciado MD Jul 31, 2020 13:21
--- NOTE | 2020-07-31 14:45 | NUR ---
NURSE NOTES: tube feeding started at 15ml/hr on formula 15ml/hr through OG-tube, no residual noted. patient remains sedated on propofol and fentanyl with rass scale oat -2.
--- NOTE | 2020-07-31 15:35 | NUR ---
NURSE NOTES: Order to renew propofol and fentanyl from dr. chowdary,
--- NOTE | 2020-07-31 15:37 | Pulmonology Progress Note ---
Subjective ROS Limited/Unobtainable: Yes Interval Events: s/p intubation, sedation, now in ICU Constitutional: Reports: other - tranferred to ICU HEENT: Repors: no symptoms Respiratory: Reports: no symptoms, dry cough Cardiovascular: Reports: no symptoms; Denies: chest pain, palpitations Gastrointestinal/Abdominal: Reports: no symptoms Musculoskeletal: Reports: other - legs cramps Allergies: Coded Allergies: No Known Allergies (Unverified , 07/21/20) All Systems: reviewed and negative except above Objective Last 24 Hour Vital Signs Date Time Temp Pulse Resp B/P (MAP) Pulse Ox O2 Delivery O2 Flow Rate FiO2 07/31/20 15:09 97 26 100 07/31/20 13:00 98/52 07/31/20 13:00 127 15 98/52 (67) 91 07/31/20 12:30 86 26 103/50 (67) 95 07/31/20 12:02 26 92/49 Mechanical Ventilator 100 07/31/20 12:00 Mechanical Ventilator 07/31/20 12:00 100 07/31/20 12:00 100.4 86 26 92/49 (63) 96 07/31/20 11:46 87 07/31/20 11:30 85 26 106/52 (70) 94 07/31/20 11:00 81 26 100 07/31/20 11:00 74 26 112/47 (68) 96 07/31/20 10:30 82 26 98/45 (62) 95 07/31/20 10:00 75 26 109/54 (72) 97 07/31/20 10:00 89/43 07/31/20 10:00 26 89/43 Mechanical Ventilator 100 07/31/20 10:00 26 89/43 Mechanical Ventilator 100 07/31/20 09:30 75 26 101/49 (66) 97 07/31/20 09:00 73 26 104/52 (69) 97 07/31/20 09:00 104/52 07/31/20 09:00 26 104/52 Mechanical Ventilator 100 07/31/20 09:00 26 104/52 Mechanical Ventilator 100 07/31/20 08:30 73 25 106/49 (68) 97 07/31/20 08:00 100 07/31/20 08:00 105/44 07/31/20 08:00 26 105/44 Mechanical Ventilator 100 07/31/20 08:00 26 105/44 Mechanical Ventilator 100 07/31/20 08:00 99.1 77 26 105/44 (64) 94 07/31/20 08:00 Mechanical Ventilator 07/31/20 08:00 69 07/31/20 07:30 78 26 106/45 (65) 94 07/31/20 07:08 96 Mechanical Ventilator 100 07/31/20 07:08 74 26 100 07/31/20 07:00 76 26 105/52 (69) 96 07/31/20 07:00 111/49 07/31/20 07:00 23 111/49 Mechanical Ventilator 100 07/31/20 06:43 27 111/47 Mechanical Ventilator 100 07/31/20 06:43 27 111/47 Mechanical Ventilator 100 07/31/20 06:00 81 23 101/51 (68) 96 07/31/20 06:00 112/53 07/31/20 06:00 25 112/63 Mechanical Ventilator 100 07/31/20 05:30 26 119/41 Mechanical Ventilator 100 07/31/20 05:13 122/56 07/31/20 05:00 26 110/43 Mechanical Ventilator 100 07/31/20 05:00 65 26 122/56 (78) 97 07/31/20 04:30 26 110/44 Mechanical Ventilator 100 07/31/20 04:00 Mechanical Ventilator 07/31/20 04:00 110/44 07/31/20 04:00 26 114/54 Mechanical Ventilator 100 07/31/20 04:00 100 07/31/20 04:00 98.0 70 26 117/60 (79) 97 07/31/20 03:55 63 07/31/20 03:30 26 117/54 Mechanical Ventilator 100 07/31/20 03:08 66 26 100 07/31/20 03:00 96/47 07/31/20 03:00 29 96/47 Mechanical Ventilator 100 07/31/20 03:00 78 26 98/61 (73) 98 07/31/20 02:30 26 100/53 Mechanical Ventilator 100 07/31/20 02:30 69 26 91/60 (70) 98 07/31/20 02:15 80 25 102/38 (59) 98 07/31/20 02:15 26 91/60 Mechanical Ventilator 100 07/31/20 02:00 96 26 94/51 (65) 98 07/31/20 02:00 102/38 07/31/20 02:00 26 102/38 Mechanical Ventilator 100 07/31/20 02:00 26 102/38 Mechanical Ventilator 100 07/31/20 01:45 26 94/51 Mechanical Ventilator 100 07/31/20 01:45 26 94/51 Mechanical Ventilator 100 07/31/20 01:45 110 26 104/57 (73) 97 07/31/20 01:39 Mechanical Ventilator 100 07/31/20 01:30 118 26 99/46 (63) 98 07/31/20 01:30 26 104/57 Mechanical Ventilator 100 07/31/20 01:30 26 104/57 Mechanical Ventilator 100 07/31/20 01:15 26 118/10 Mechanical Ventilator 100 07/31/20 01:15 26 118/10 Mechanical Ventilator 100 07/31/20 01:00 128 26 118/10 (46) 99 07/31/20 01:00 118/10 07/31/20 01:00 26 118/10 Mechanical Ventilator 100 07/31/20 01:00 26 118/10 Mechanical Ventilator 100 07/31/20 00:45 57 21 158/74 (102) 97 07/31/20 00:33 53 07/31/20 00:00 97.9 68 16 156/51 (86) 96 07/31/20 00:00 Mechanical Ventilator 07/31/20 00:00 100 07/31/20 00:00 160/64 07/31/20 00:00 21 160/64 Mechanical Ventilator 100 07/31/20 00:00 21 160/64 Mechanical Ventilator 100 07/30/20 23:45 89 16 160/81 (107) 94 07/30/20 23:45 19 156/51 Mechanical Ventilator 100 07/30/20 23:30 10 164/75 Mechanical Ventilator 100 07/30/20 23:00 59 16 169/54 (92) 97 07/30/20 23:00 169/54 07/30/20 23:00 15 169/54 Mechanical Ventilator 100 07/30/20 23:00 15 169/54 Mechanical Ventilator 100 07/30/20 22:57 57 28 100 07/30/20 22:45 84 16 158/73 (101) 94 07/30/20 22:32 18 163/62 Mechanical Ventilator 100 07/30/20 22:00 64 15 145/63 (90) 96 07/30/20 22:00 163/62 07/30/20 22:00 18 163/62 Mechanical Ventilator 100 07/30/20 22:00 18 163/62 Mechanical Ventilator 100 07/30/20 21:57 158/51 07/30/20 21:00 54 19 159/49 (85) 98 07/30/20 21:00 18 151/61 Mechanical Ventilator 100 07/30/20 21:00 18 151/61 Mechanical Ventilator 100 07/30/20 20:00 Mechanical Ventilator 07/30/20 20:00 18 150/53 Mechanical Ventilator 100 07/30/20 20:00 18 150/53 Mechanical Ventilator 100 07/30/20 20:00 97.8 54 17 154/55 (88) 98 07/30/20 20:00 100 07/30/20 19:54 56 07/30/20 19:17 98 Mechanical Ventilator 100 07/30/20 19:15 58 32 100 07/30/20 19:00 20 161/58 Endotracheal Tube 100 07/30/20 19:00 18 163/57 Endotracheal Tube 100 07/30/20 19:00 56 16 163/57 (92) 97 07/30/20 18:00 68 20 139/57 (84) 99 07/30/20 18:00 21 145/41 Endotracheal Tube 100 07/30/20 18:00 21 145/41 Endotracheal Tube 100 07/30/20 17:45 25 139/49 Endotracheal Tube 100 07/30/20 17:30 25 149/72 Endotracheal Tube 100 07/30/20 17:30 70 25 139/49 (79) 99 07/30/20 17:15 25 105/49 Endotracheal Tube 100 07/30/20 17:00 25 118/46 Endotracheal Tube 100 07/30/20 17:00 25 118/46 Endotracheal Tube 100 07/30/20 17:00 60 25 105/49 (67) 99 07/30/20 16:45 25 116/58 Endotracheal Tube 100 07/30/20 16:30 61 25 116/56 (76) 98 07/30/20 16:00 61 07/30/20 16:00 100 07/30/20 16:00 107/50 07/30/20 16:00 25 107/50 Endotracheal Tube 100 07/30/20 16:00 25 107/50 Endotracheal Tube 100 07/30/20 16:00 Mechanical Ventilator 07/30/20 16:00 61 25 117/46 (69) 97 Intake and Output 07/30/20 07/31/20 19:00 07:00 Intake Total 1360.9735 ml 1481.80345 ml Output Total 720 ml 850 ml Balance 640.9735 ml 631.74523 ml IV Total 1360.9735 ml 1481.18325 ml Output Urine Total 720 ml 850 ml # Bowel Movements 3 General Appearance: no acute distress HEENT: normocephalic Respiratory: chest wall non-tender, crackles/rales Cardiovascular: normal peripheral pulses, normal rate Abdomen: normal bowel sounds Extremities: no cyanosis, no clubbing Laboratory Tests 07/30/20 21:12: POC Whole Blood Glucose 249H 07/31/20 02:13: Arterial Blood pH 7.283L, Arterial Blood Partial Pressure CO2 59.6*H, Arterial Blood Partial Pressure O2 104.1H, Arterial Blood HCO3 27.6H, Arterial Blood Oxygen Saturation 97.2, Arterial Blood Base Excess -0.4, Francisco Test Positive 07/31/20 04:00: White Blood Count 25.7*H, Red Blood Count 4.50L, Hemoglobin 13.7L, Hematocrit 39.7L, Mean Corpuscular Volume 88, Mean Corpuscular Hemoglobin 30.5, Mean Corpuscular Hemoglobin Concent 34.5, Red Cell Distribution Width 13.6, Platelet Count 186, Mean Platelet Volume 6.4L, Neutrophils (%) (Auto) , Lymphocytes (%) (Auto) , Monocytes (%) (Auto) , Eosinophils (%) (Auto) , Basophils (%) (Auto) , Differential Total Cells Counted 100, Neutrophils % (Manual) 95H, Lymphocytes % (Manual) 2L, Monocytes % (Manual) 3, Eosinophils % (Manual) 0, Basophils % (Manual) 0, Band Neutrophils 0, Platelet Estimate Adequate, Platelet Morphology Normal, Red Blood Cell Morphology Normal, Sodium Level 139, Potassium Level 4.5, Chloride Level 106, Carbon Dioxide Level 29, Anion Gap 4L, Blood Urea Nitrogen 24H, Creatinine 0.8, Estimat Glomerular Filtration Rate > 60, Glucose Level 272H , Uric Acid 3.6, Calcium Level 7.3L, Phosphorus Level 3.7, Magnesium Level 2.2, Total Bilirubin 0.5, Aspartate Amino Transf (AST/SGOT) 22, Alanine Aminotransferase (ALT/SGPT) 20, Alkaline Phosphatase 128H, Lactate Dehydrogenase 515H, Troponin I 0.077H, C-Reactive Protein, Quantitative 21.0H, Pro-B-Type Natr iuretic Peptide 582H, Total Protein 6.0L, Albumin 1.5L, Globulin 4.5, Albumin/Globulin Ratio 0.3L, Triglycerides Level 253H, Cholesterol Level 125, LDL Cholesterol 79, HDL Cholesterol 14L, Cholesterol/HDL Ratio 8.9H, Lipase 41L 07/31/20 12:55: POC Whole Blood Glucose 94 Current Medications Medications (Trade) Dose Ordered Sig/Dalia Route PRN Reason Start Time Stop Time Status Last Admin Dose Admin Acetaminophen (Tylenol) 500 mg Q6H PRN ORAL Mild Pain (Pain Scale 1-3) 07/21/20 08:15 08/20/20 08:14 07/28/20 09:14 Ascorbic Acid (Vitamin C) 500 mg TWICE A DAY ORAL 07/23/20 09:00 08/22/20 08:59 07/31/20 09:26 Chlorhexidine Gluconate (Hiral-Hex 2%) 1 applic DAILY@2000 TOPIC 07/30/20 20:00 10/28/20 19:59 07/30/20 21:14 Dextrose (Dextrose 50%) 25 ml Q30M PRN IV Hypoglycemia 07/21/20 13:30 10/19/20 13:29 Dextrose (Dextrose 50%) 50 ml Q30M PRN IV Hypoglycemia 07/21/20 13:30 10/19/20 13:29 Dopamine HCl/ Dextrose 250 ml @ 0 mls/hr Q24H IV 07/29/20 23:00 08/01/20 22:58 07/31/20 13:00 Enoxaparin Sodium (Lovenox) 40 mg DAILY SUBQ 07/22/20 09:00 10/20/20 08:59 07/31/20 09:27 Fentanyl Citrate 250 ml @ 0 mls/hr Q24H IV 07/31/20 16:30 08/02/20 16:29 Fentanyl Citrate 2500 mcg/Sodium Chloride 250 ml @ 1 mls/hr Q24H IV 07/29/20 17:30 07/31/20 16:30 07/31/20 06:43 Guaifenesin (Robitussin) 200 mg Q4H PRN ORAL For Cough 07/25/20 12:30 10/23/20 12:29 07/29/20 09:32 Insulin Aspart (NovoLOG) EVERY 4 HOURS SUBQ 07/31/20 09:00 10/19/20 16:29 Insulin Detemir (Levemir) 14 units EVERY 12 HOURS SUBQ 07/31/20 09:00 10/19/20 20:59 07/31/20 09:29 Lorazepam (Ativan 2mg/ml 1ml) 1 mg Q4H PRN IV For Anxiety 07/29/20 17:15 08/05/20 17:14 07/30/20 04:05 Mirtazapine (Remeron) 15 mg BEDTIME ORAL 07/22/20 21:00 10/20/20 20:59 07/30/20 21:13 Pantoprazole (Protonix) 40 mg DAILY IVP 07/30/20 09:00 08/29/20 08:59 07/31/20 09:26 Piperacillin Sod/ Tazobactam Sod 3.375 gm/Sodium Chloride 110 ml @ 27.5 mls/hr EVERY 8 HOURS IVPB 07/30/20 12:00 08/04/20 11:59 07/31/20 14:57 Propofol 100 ml @ 2.341 mls/ hr Q12H IV 07/29/20 19:00 07/31/20 16:30 07/31/20 12:02 Propofol 100 ml @ 0 mls/hr Q12H IV 07/31/20 16:30 08/02/20 16:29 Sodium Chloride 1,000 ml @ 75 mls/hr [id number] IV 07/29/20 22:30 08/28/20 22:29 07/31/20 12:00 Assessment/Plan Assessment/Plan Assessment/Plan 1. COVID-19 pneumonia/Respiratory Failure - On Decadron - on remdesivir per ID specialist - Intubated - On AC mode; FiO2 100 %; PEEP 15 - ABG reviewed - On dopamine; Central line in place - on propofol and fentanyl - will monitor for elevated TG's - CXR 07/24 Marked worsening of bilateral infiltrates 2. Elevated inflammatory markers. 3. Diabetes mellitus. -On insulin as needed 4. DVT prophylaxis - On Lovenox Pradeep Fiore MD, MD Jul 31, 2020 15:36
--- NOTE | 2020-07-31 16:15 | NUR ---
CASE MANAGEMENT:REVIEW 07/31/20 SI;COVID PNEUMONIA. RESPIRATORY FAILURE. T 101.5 P 127 RR 27 89/43 94% ETT/VENT SUPPORT AC 26 TV 450 PEEP 15 FIO2 100% WBC 25.7 BUN 24 CA 7.3 ALP 128 LDH 515 TROP 0.077 CRP 21.BNP 582 ALB 1.5 IS;LOVENOX SQ QD VIT C NG BID FENTANYL CITRATE/NS GTT IV PROPOFOL IV IVF NS @ 75 ML/HR DOPAMINE GTT IV PROTONIX IV QD ZOSYN IV Q8 ICU STATUS DCP;FROM HOME CASE MANAGEMENT:REVIEW 07/30/20 SI;COVID PNEUMONIA. RESPIRATORY FAILURE. 99.0 112 42 158/53 89% ETT/VENT AC 26 TV 450 PEEP 15 FIO2 100% 23.2 PLT 141 BUN 25 BG 198 CA 7.3 ALP 142 TROP 0.074 ALB 1.7 IS;LOVENOX SQ QD VIT C NG BID FENTANYL CITRATE/NS GTT IV PROPOFOL IV IVF NS @ 75 ML/HR DOPAMINE GTT IV PROTONIX IV QD ZOSYN IV Q8 ICU STATUS DCP;FROM HOME
--- NOTE | 2020-07-31 16:21 | NUR ---
NURSE NOTES: Tylenol given for a temperature of 101.5 F, ice packs placed on the upper arms and lower abdomen, tube feeding remains running at 15ml/hr with no residual noted, water flushed with medication. patient fentanyl bag changed but remains at 240mcg/hr and propofol at 40mcg/kg/min
[2020-07-31] MEDS: Acetaminophen 500mg (ES) tab ORAL PRN (16:23)
[2020-07-31] MEDS: fentaNYL 2500mcg/NS 250ml 250 ML IV SCH (16:24)
--- NOTE | 2020-07-31 19:31 | NUR ---
NURSE HAND-OFF REPORT: Latest Vital Signs: Temperature 100.1 , Pulse 70 , B/P 105 /46 , Respiratory Rate 26 , O2 SAT 95 , Non-Rebreather, O2 Flow Rate . Vital Sign Comment: EKG Rhythm: Sinus Rhythm Rhythm change?: N MD Notified?: - MD Response: Latest Van Fall Score: 50 Fall Risk: High Risk Safety Measures: Call light Within Reach, Bed Alarm Zone 1, Side Rails Side Rails x3, Bed position Low and Locked. Fall Precautions: Yellow Socks Door Sign Patient Fall Education Report given to CHARMAINE Barajas. patient remains on fentanyl at 240mcg/hr, propofol at 40mcg/kg/min, and dopamine at 12mcg/kg/min. tube feeding is running at 15ml/hr.
--- NOTE | 2020-07-31 19:32 | NUR ---
NURSE NOTES: Received patient from CHARMAINE Simpson. Will continue plan of care.
--- NOTE | 2020-07-31 20:00 | NUR ---
NURSE NOTES: Received patient intubated; ETT 7.5 to 24cm to the lipline with vent settings of AC:26, TV:450, FiO2:100% PEEP:15, O2sat:99%. Patient is lightly sedated RASS -2; awakens to voice and touch. OGT inserted patent and flushing well running Vital AF @ 15ml/hr and will increase to goal of 35ml/hr as tolerated. Miranda catheter in place and drainging. Right femoral TLC running NS @ 75ml/hr, Fentanyl @ 240mcg and Propofol @ 40mcgs and Dopamine @ 12mcgs. On bilateral soft wrist restraints for safety and prevent from pulling on lines and tubing. Safety measures in place; bed low, locked and alarm is on. Will continue plan of care
[2020-07-31] MEDS: Dyna-Hex 2% Top Sol 2oz TOPIC SCH (20:25)
--- NOTE | 2020-07-31 21:49 | General Progress Note ---
Subjective ROS Limited/Unobtainable: Yes Allergies: Coded Allergies: No Known Allergies (Unverified , 07/21/20) Objective Last 24 Hour Vital Signs Date Time Temp Pulse Resp B/P (MAP) Pulse Ox O2 Delivery O2 Flow Rate FiO2 07/31/20 20:21 80/38 07/31/20 19:17 70 26 100 07/31/20 19:00 74 26 114/46 (68) 97 07/31/20 19:00 26 114/46 Mechanical Ventilator 100 07/31/20 19:00 26 114/46 Mechanical Ventilator 100 07/31/20 19:00 114/46 07/31/20 18:30 72 26 101/49 (66) 97 07/31/20 18:00 73 26 110/46 (67) 97 07/31/20 18:00 26 110/46 Mechanical Ventilator 100 07/31/20 18:00 26 110/46 Mechanical Ventilator 100 07/31/20 18:00 110/46 07/31/20 17:37 100.1 07/31/20 17:30 80 26 104/51 (68) 96 07/31/20 17:00 26 105/46 Mechanical Ventilator 100 07/31/20 17:00 26 105/46 Non-Rebreather 100 07/31/20 17:00 105/46 07/31/20 17:00 84 26 105/47 (66) 95 07/31/20 16:30 88 26 106/51 (69) 96 07/31/20 16:27 26 110/46 Mechanical Ventilator 100 07/31/20 16:24 26 110/46 Mechanical Ventilator 100 07/31/20 16:23 26 110/46 Mechanical Ventilator 100 07/31/20 16:07 100 07/31/20 16:00 101.5 95 26 110/46 (67) 96 07/31/20 16:00 91 07/31/20 16:00 Mechanical Ventilator 07/31/20 16:00 110/46 07/31/20 16:00 26 110/46 Mechanical Ventilator 100 07/31/20 16:00 26 110/46 Mechanical Ventilator 100 07/31/20 15:30 94 26 102/49 (66) 95 07/31/20 15:09 97 26 100 07/31/20 15:00 103/50 07/31/20 15:00 26 103/50 Mechanical Ventilator 100 07/31/20 15:00 26 103/50 Mechanical Ventilator 100 07/31/20 15:00 94 26 103/50 (67) 97 07/31/20 14:30 94 26 97/43 (61) 96 07/31/20 14:30 26 89/48 Mechanical Ventilator 100 07/31/20 14:00 92/47 07/31/20 14:00 26 92/47 Mechanical Ventilator 100 07/31/20 14:00 26 92/47 Mechanical Ventilator 100 07/31/20 14:00 96 26 92/47 (62) 96 07/31/20 13:30 112 24 117/60 (79) 94 07/31/20 13:00 98/52 07/31/20 13:00 26 95/51 Mechanical Ventilator 100 07/31/20 13:00 26 98/52 Mechanical Ventilator 100 07/31/20 13:00 127 15 98/52 (67) 91 07/31/20 12:30 86 26 103/50 (67) 95 07/31/20 12:02 26 92/49 Mechanical Ventilator 100 07/31/20 12:00 Mechanical Ventilator 07/31/20 12:00 100 07/31/20 12:00 26 92/49 Mechanical Ventilator 100 07/31/20 12:00 100.4 86 26 92/49 (63) 96 07/31/20 11:46 87 07/31/20 11:30 85 26 106/52 (70) 94 07/31/20 11:00 81 26 100 07/31/20 11:00 112/47 07/31/20 11:00 26 112/47 Mechanical Ventilator 100 07/31/20 11:00 26 112/47 Mechanical Ventilator 100 07/31/20 11:00 74 26 112/47 (68) 96 07/31/20 10:30 82 26 98/45 (62) 95 07/31/20 10:00 75 26 109/54 (72) 97 07/31/20 10:00 89/43 07/31/20 10:00 26 89/43 Mechanical Ventilator 100 07/31/20 10:00 26 89/43 Mechanical Ventilator 100 07/31/20 09:30 75 26 101/49 (66) 97 07/31/20 09:00 73 26 104/52 (69) 97 07/31/20 09:00 104/52 07/31/20 09:00 26 104/52 Mechanical Ventilator 100 07/31/20 09:00 26 104/52 Mechanical Ventilator 100 07/31/20 08:30 73 25 106/49 (68) 97 07/31/20 08:00 100 07/31/20 08:00 105/44 07/31/20 08:00 26 105/44 Mechanical Ventilator 100 07/31/20 08:00 26 105/44 Mechanical Ventilator 100 07/31/20 08:00 99.1 77 26 105/44 (64) 94 07/31/20 08:00 Mechanical Ventilator 07/31/20 08:00 69 07/31/20 07:30 78 26 106/45 (65) 94 07/31/20 07:08 96 Mechanical Ventilator 100 07/31/20 07:08 74 26 100 07/31/20 07:00 76 26 105/52 (69) 96 07/31/20 07:00 111/49 07/31/20 07:00 23 111/49 Mechanical Ventilator 100 07/31/20 06:43 27 111/47 Mechanical Ventilator 100 07/31/20 06:43 27 111/47 Mechanical Ventilator 100 07/31/20 06:00 81 23 101/51 (68) 96 07/31/20 06:00 112/53 07/31/20 06:00 25 112/63 Mechanical Ventilator 100 07/31/20 05:30 26 119/41 Mechanical Ventilator 100 07/31/20 05:13 122/56 07/31/20 05:00 26 110/43 Mechanical Ventilator 100 07/31/20 05:00 65 26 122/56 (78) 97 07/31/20 04:30 26 110/44 Mechanical Ventilator 100 07/31/20 04:00 Mechanical Ventilator 07/31/20 04:00 110/44 07/31/20 04:00 26 114/54 Mechanical Ventilator 100 07/31/20 04:00 100 07/31/20 04:00 98.0 70 26 117/60 (79) 97 07/31/20 03:55 63 07/31/20 03:30 26 117/54 Mechanical Ventilator 100 07/31/20 03:08 66 26 100 07/31/20 03:00 96/47 07/31/20 03:00 29 96/47 Mechanical Ventilator 100 07/31/20 03:00 78 26 98/61 (73) 98 07/31/20 02:30 26 100/53 Mechanical Ventilator 100 07/31/20 02:30 69 26 91/60 (70) 98 07/31/20 02:15 80 25 102/38 (59) 98 07/31/20 02:15 26 91/60 Mechanical Ventilator 100 07/31/20 02:00 96 26 94/51 (65) 98 07/31/20 02:00 102/38 07/31/20 02:00 26 102/38 Mechanical Ventilator 100 07/31/20 02:00 26 102/38 Mechanical Ventilator 100 07/31/20 01:45 26 94/51 Mechanical Ventilator 100 07/31/20 01:45 26 94/51 Mechanical Ventilator 100 07/31/20 01:45 110 26 104/57 (73) 97 07/31/20 01:39 Mechanical Ventilator 100 07/31/20 01:30 118 26 99/46 (63) 98 07/31/20 01:30 26 104/57 Mechanical Ventilator 100 07/31/20 01:30 26 104/57 Mechanical Ventilator 100 07/31/20 01:15 26 118/10 Mechanical Ventilator 100 07/31/20 01:15 26 118/10 Mechanical Ventilator 100 07/31/20 01:00 128 26 118/10 (46) 99 07/31/20 01:00 118/10 07/31/20 01:00 26 118/10 Mechanical Ventilator 100 07/31/20 01:00 26 118/10 Mechanical Ventilator 100 07/31/20 00:45 57 21 158/74 (102) 97 07/31/20 00:33 53 07/31/20 00:00 97.9 68 16 156/51 (86) 96 07/31/20 00:00 Mechanical Ventilator 07/31/20 00:00 100 07/31/20 00:00 160/64 07/31/20 00:00 21 160/64 Mechanical Ventilator 100 07/31/20 00:00 21 160/64 Mechanical Ventilator 100 07/30/20 23:45 89 16 160/81 (107) 94 07/30/20 23:45 19 156/51 Mechanical Ventilator 100 07/30/20 23:30 10 164/75 Mechanical Ventilator 100 07/30/20 23:00 59 16 169/54 (92) 97 07/30/20 23:00 169/54 07/30/20 23:00 15 169/54 Mechanical Ventilator 100 07/30/20 23:00 15 169/54 Mechanical Ventilator 100 07/30/20 22:57 57 28 100 07/30/20 22:45 84 16 158/73 (101) 94 07/30/20 22:32 18 163/62 Mechanical Ventilator 100 07/30/20 22:00 64 15 145/63 (90) 96 07/30/20 22:00 163/62 07/30/20 22:00 18 163/62 Mechanical Ventilator 100 07/30/20 22:00 18 163/62 Mechanical Ventilator 100 07/30/20 21:57 158/51 Intake and Output 07/30/20 07/31/20 19:00 07:00 Intake Total 1360.9735 ml 1481.34370 ml Output Total 720 ml 850 ml Balance 640.9735 ml 631.46129 ml IV Total 1360.9735 ml 1481.42649 ml Output Urine Total 720 ml 850 ml # Bowel Movements 3 Laboratory Tests 07/31/20 02:13: Arterial Blood pH 7.283L, Arterial Blood Partial Pressure CO2 59.6*H, Arterial Blood Partial Pressure O2 104.1H, Arterial Blood HCO3 27.6H, Arterial Blood Oxygen Saturation 97.2, Arterial Blood Base Excess -0.4, [place] Test Positive 07/31/20 04:00: White Blood Count 25.7*H, Red Blood Count 4.50L, Hemoglobin 13.7L, Hematocrit 39.7L, Mean Corpuscular Volume 88, Mean Corpuscular Hemoglobin 30.5, Mean Corpuscular Hemoglobin Concent 34.5, Red Cell Distribution Width 13.6, Platelet Count 186, Mean Platelet Volume 6.4L, Neutrophils (%) (Auto) , Lymphocytes (%) (Auto) , Monocytes (%) (Auto) , Eosinophils (%) (Auto) , Basophils (%) (Auto) , Differential Total Cells Counted 100, Neutrophils % (Manual) 95H, Lymphocytes % (Manual) 2L, Monocytes % (Manual) 3, Eosinophils % (Manual) 0, Basophils % (Manual) 0, Band Neutrophils 0, Platelet Estimate Adequate, Platelet Morphology Normal, Red Blood Cell Morphology Normal, Sodium Level 139, Potassium Level 4.5, Chloride Level 106, Carbon Dioxide Level 29, Anion Gap 4L, Blood Urea Nitrogen 24H, Creatinine 0.8, Estimat Glomerular Filtration Rate > 60, Glucose Level 272H , Uric Acid 3.6, Calcium Level 7.3L, Phosphorus Level 3.7, Magnesium Level 2.2, Total Bilirubin 0.5, Aspartate Amino Transf (AST/SGOT) 22, Alanine Aminotransferase (ALT/SGPT) 20, Alkaline Phosphatase 128H, Lactate Dehydrogenase 515H, Troponin I 0.077H, C-Reactive Protein, Quantitative 21.0H, Pro-B-Type Natriuretic Peptide 582H, Total Protein 6.0L, Albumin 1.5L, Globulin 4.5, Albumin/Globulin Ratio 0.3L, Triglycerides Level 253H, Cholesterol Level 125, LDL Cholesterol 79, HDL Cholesterol 14L, Cholesterol/HDL Ratio 8.9H, Lipase 41L 07/31/20 12:55: POC Whole Blood Glucose 94 07/31/20 16:36: POC Whole Blood Glucose 93 07/31/20 20:24: POC Whole Blood Glucose 91 Height (Feet): 5 Height (Inches): 6.00 Weight (Pounds): 172 Assessment/Plan Problem List: (1) Acute respiratory failure with hypoxia ICD Codes: J96.01 - Acute respiratory failure with hypoxia; J12.89 - Other viral pneumonia SNOMED: 46426541, 230447182 (2) Pneumonia due to COVID-19 virus ICD Codes: U07.1 - COVID-19; J12.89 - Other viral pneumonia SNOMED: [id number] (3) Hyperglycemia due to type 2 diabetes mellitus ICD Codes: E11.65 - Type 2 diabetes mellitus with hyperglycemia; J12.89 - Other viral pneumonia SNOMED: 099509163713983, [id number] Qualifiers: Qualified Codes: E11.65 - Type 2 diabetes mellitus with hyperglycemia Status: progressing Assessment/Plan: covid positive pna intubated resp failure labile sugar poor prognosis afebrile niddm Milagro Miller MD Jul 31, 2020 21:49
--- NOTE | 2020-07-31 22:00 | NUR ---
NURSE NOTES: Patient is calm and sedated with a RASs score of -2. Awakens to touch. Continues on propofol @ 40mcgs, fentanyl @ 240mcgs and dopamine @ 12mcgs. Pt repositioned.
--- NOTE | 2020-07-31 23:01 | Psychiatric Progress Note ---
Psychiatry Progress Note Psychiatry Progress Note Subjective no new changes calm Medications Current Medications Medications (Trade) Dose Ordered Sig/Dalia Route PRN Reason Start Time Stop Time Status Last Admin Dose Admin Acetaminophen (Tylenol) 500 mg Q6H PRN ORAL Mild Pain (Pain Scale 1-3) 07/21/20 08:15 08/20/20 08:14 07/31/20 16:23 Ascorbic Acid (Vitamin C) 500 mg TWICE A DAY ORAL 07/23/20 09:00 08/22/20 08:59 07/31/20 17:26 Chlorhexidine Gluconate (Hiral-Hex 2%) 1 applic DAILY@2000 TOPIC 07/30/20 20:00 10/28/20 19:59 07/31/20 20:25 Dextrose (Dextrose 50%) 25 ml Q30M PRN IV Hypoglycemia 07/21/20 13:30 10/19/20 13:29 Dextrose (Dextrose 50%) 50 ml Q30M PRN IV Hypoglycemia 07/21/20 13:30 10/19/20 13:29 Dopamine HCl/ Dextrose 250 ml @ 0 mls/hr Q24H IV 07/29/20 23:00 08/01/20 22:58 07/31/20 20:21 Enoxaparin Sodium (Lovenox) 40 mg DAILY SUBQ 07/22/20 09:00 10/20/20 08:59 07/31/20 09:27 Fentanyl Citrate 250 ml @ 0 mls/hr Q24H IV 07/31/20 16:30 08/02/20 16:29 07/31/20 16:24 Guaifenesin (Robitussin) 200 mg Q4H PRN ORAL For Cough 07/25/20 12:30 10/23/20 12:29 07/29/20 09:32 Insulin Aspart (NovoLOG) EVERY 4 HOURS SUBQ 07/31/20 09:00 10/19/20 16:29 Insulin Detemir (Levemir) 14 units EVERY 12 HOURS SUBQ 07/31/20 09:00 10/19/20 20:59 07/31/20 09:29 Lorazepam (Ativan 2mg/ml 1ml) 1 mg Q4H PRN IV For Anxiety 07/29/20 17:15 08/05/20 17:14 07/30/20 04:05 Mirtazapine (Remeron) 15 mg BEDTIME ORAL 07/22/20 21:00 10/20/20 20:59 07/31/20 20:25 Pantoprazole (Protonix) 40 mg DAILY IVP 07/30/20 09:00 08/29/20 08:59 07/31/20 09:26 Piperacillin Sod/ Tazobactam Sod 3.375 gm/Sodium Chloride 110 ml @ 27.5 mls/hr EVERY 8 HOURS IVPB 07/30/20 12:00 08/04/20 11:59 07/31/20 21:47 Propofol 100 ml @ 0 mls/hr Q12H IV 07/31/20 16:30 08/02/20 16:29 07/31/20 16:27 Sodium Chloride 1,000 ml @ 75 mls/hr [id number] IV 07/29/20 22:30 08/28/20 22:29 07/31/20 12:00 Neurological/Psychiatric: Reports: anxiety, depressed, emotional problems Allergies: Coded Allergies: No Known Allergies (Unverified , 07/21/20) Objective Data Height (Feet): 5 Height (Inches): 6.00 Weight (Pounds): 172 General Appearance: no apparent distress Additional Comments: alert, oriented to self, place, situation. Mood is anxious. Affect is blunted, congruent with mood. Thought process is concrete. Thought content, no suicidal or homicidal ideation. Cognition is intact. Insight and judgment fair. Assessment/Plan [place] I: ASSESSMENT: [place] I Anxiety disorder. [place] II Deferred. [place] III As above. [place] IV Low. [place] V 20 PLAN: 1. We will continue current medication. 2. Provide the patient with reality orientation and supportive therapy. Status: progressing Status Narrative ASSESSMENT: [place] I Anxiety disorder. [place] II Deferred. [place] III As above. [place] IV Low. [place] V 20 PLAN: 1. We will continue current medication. 2. Provide the patient with reality orientation and supportive therapy. Assessment/Plan: ASSESSMENT: [place] I Anxiety disorder. [place] II Deferred. [place] III As above. [place] IV Low. [place] V 20 PLAN: 1. We will continue current medication. 2. Provide the patient with reality orientation and supportive therapy. Ron Bridges MD Jul 31, 2020 23:01
[2020-08-01] VITALS (45 sets, daily range): BP systolic 100–128; BP diastolic 44–61
--- NOTE | 2020-08-01 | NUR ---
NURSE NOTES: No changed in vent settings or drip rate. Patient remains calm and lightly sedated.
[2020-08-01] MEDS: NovoLOG Insulin Flexpen SUBQ SCH ×6 (01:00→22:00)
--- NOTE | 2020-08-01 02:00 | NUR ---
NURSE NOTES: Cool bath given, linens changed, turned and repositioned. Oral care provided.
[2020-08-01] MEDS: fentaNYL 2500mcg/NS 250ml 250 ML IV SCH ×2 (02:55→14:37)
[2020-08-01] MEDS: DOPamine 400mg/250ml 250 ML IV SCH ×3 (03:27→18:00)
--- NOTE | 2020-08-01 04:00 | NUR ---
NURSE NOTES: Patient valuables sent to hospital safe and verified with household appliance installer and security. ($1052: $100x10, $20x2, $5x2, $1x2, red visa card, IDx4, wallet, 1 zazueta and black iphone)
[2020-08-01 05:06] LABS: HEMATOCRIT 38.3 % (42.0-52.0); HEMOGLOBIN 12.9 G/DL (14.2-18.0); MEAN CORPUSCULAR VOLUME 89 FL (80-99); PLATELET COUNT 158 K/UL (150-450); RED CELL DISTRIBUTION WIDTH 14.1 % (11.6-14.8)
[2020-08-01 05:24] LABS: WHITE BLOOD COUNT 22.1 K/UL (4.8-10.8)
[2020-08-01] MEDS: Piperacillin/Tazobactam 3.375 GM in NS 110 ML IVPB SCH ×3 (05:27→21:30)
[2020-08-01 05:31] LABS: ALANINE AMINOTRANSFERASE 10 U/L (12-78); ALBUMIN 1.2 G/DL (3.4-5.0); ALBUMIN/GLOBULIN RATIO 0.3 (1.0-2.7); ALKALINE PHOSPHATASE 99 U/L (46-116); ANION GAP 5 mmol/L (5-15); ASPARTATE AMINO TRANSFERASE 20 U/L (15-37); BILIRUBIN,TOTAL 0.7 MG/DL (0.2-1.0); BLOOD UREA NITROGEN 17 mg/dL (7-18); CALCIUM 7.1 MG/DL (8.5-10.1); CARBON DIOXIDE 28 MMOL/L (21-32); CHLORIDE 106 MMOL/L (98-107); CREATININE 0.7 MG/DL (0.55-1.30); PHOSPHORUS 2.3 MG/DL (2.5-4.9); SODIUM 139 MMOL/L (136-145); TRIGLYCERIDES 235 MG/DL (30-150)
[2020-08-01] MEDS: propofoL 1,000mg/100ml 100 ML IV SCH ×4 (05:31→21:32)
[2020-08-01] MEDS: Acetaminophen 500mg (ES) tab ORAL PRN (05:39)
--- NOTE | 2020-08-01 05:39 | NUR ---
NURSE NOTES: Patient given 500mg Tylenol via NGT for pain FLACC 3/10. Patient noted to have temperature of 101.6F, cooling measures given.
--- NOTE | 2020-08-01 06:31 | General Progress Note ---
Subjective ROS Limited/Unobtainable: Yes Allergies: Coded Allergies: No Known Allergies (Unverified , 07/21/20) Subjective events noted interval notes reviewed glucose values improved intubated in ICU Item Value Date Time Bedside Blood Glucose 171 mg/dl H 08/01/20 0530 Bedside Blood Glucose 125 mg/dl H 08/01/20 0100 Bedside Blood Glucose 91 mg/dl 07/31/20 2100 Bedside Blood Glucose 93 mg/dl 07/31/20 1650 Bedside Blood Glucose 95 mg/dl 07/31/20 1300 Bedside Blood Glucose 148 mg/dl H 07/31/20 0929 Bedside Blood Glucose 264 mg/dl H 07/31/20 0630 Objective Last 24 Hour Vital Signs Date Time Temp Pulse Resp B/P (MAP) Pulse Ox O2 Delivery O2 Flow Rate FiO2 08/01/20 06:15 107 24 102/50 (67) 95 08/01/20 06:00 109 22 117/56 (76) 95 08/01/20 05:31 22 107/53 Mechanical Ventilator 100 08/01/20 05:30 110 20 107/53 (71) 95 08/01/20 05:00 101.6 108 23 108/52 (70) 96 08/01/20 04:00 100 08/01/20 04:00 107 20 105/60 (75) 96 08/01/20 04:00 24 105/60 Mechanical Ventilator 100 08/01/20 04:00 24 105/60 Mechanical Ventilator 100 08/01/20 04:00 105/60 08/01/20 04:00 Mechanical Ventilator 08/01/20 03:32 108 08/01/20 03:30 108 28 100 08/01/20 03:27 105/50 08/01/20 03:00 23 111/59 Mechanical Ventilator 100 08/01/20 03:00 23 111/59 Mechanical Ventilator 100 08/01/20 03:00 111/59 08/01/20 03:00 105 24 111/59 (76) 96 08/01/20 02:55 24 108/56 Mechanical Ventilator 100 08/01/20 02:00 102 26 112/46 (68) 97 08/01/20 02:00 25 112/46 Mechanical Ventilator 100 08/01/20 02:00 25 112/46 Mechanical Ventilator 100 08/01/20 02:00 112/46 08/01/20 01:00 26 112/50 Mechanical Ventilator 100 08/01/20 01:00 26 112/50 Mechanical Ventilator 100 08/01/20 01:00 112/50 08/01/20 01:00 97 26 112/50 (70) 96 08/01/20 00:06 95 08/01/20 00:00 Mechanical Ventilator 08/01/20 00:00 26 111/54 Mechanical Ventilator 100 08/01/20 00:00 26 111/54 Mechanical Ventilator 100 08/01/20 00:00 111/54 08/01/20 00:00 100.0 94 25 111/54 (73) 97 07/31/20 23:30 93 26 100 07/31/20 23:13 26 119/51 Mechanical Ventilator 100 07/31/20 23:00 88 26 119/51 (73) 99 07/31/20 23:00 26 119/51 Mechanical Ventilator 100 07/31/20 23:00 26 119/51 Mechanical Ventilator 100 07/31/20 23:00 119/51 07/31/20 22:00 84 26 121/50 (73) 98 07/31/20 22:00 26 121/50 Mechanical Ventilator 100 07/31/20 22:00 26 111/50 Mechanical Ventilator 100 07/31/20 22:00 111/50 07/31/20 21:00 76 26 116/44 (68) 99 07/31/20 21:00 26 109/51 Mechanical Ventilator 100 07/31/20 21:00 26 109/51 Mechanical Ventilator 100 07/31/20 20:21 80/38 07/31/20 20:00 100 07/31/20 20:00 Mechanical Ventilator 07/31/20 20:00 99.7 71 26 115/46 (69) 98 20 20:00 26 80/38 Mechanical Ventilator 100 20 20:00 26 80/38 Mechanical Ventilator 100 20 20:00 80/38 07/31/20 19:30 73 07/31/20 19:17 70 26 100 07/31/20 19:00 74 26 114/46 (68) 97 07/31/20 19:00 26 114/46 Mechanical Ventilator 100 07/31/20 19:00 26 114/46 Mechanical Ventilator 100 07/31/20 19:00 114/46 07/31/20 18:30 72 26 101/49 (66) 97 07/31/20 18:00 73 26 110/46 (67) 97 07/31/20 18:00 26 110/46 Mechanical Ventilator 100 07/31/20 18:00 26 110/46 Mechanical Ventilator 100 20 18:00 110/46 20 17:37 100.1 07/31/20 17:30 80 26 104/51 (68) 96 07/31/20 17:00 26 105/46 Mechanical Ventilator 100 07/31/20 17:00 26 105/46 Non-Rebreather 100 07/31/20 17:00 105/46 07/31/20 17:00 84 26 105/47 (66) 95 07/31/20 16:30 88 26 106/51 (69) 96 07/31/20 16:27 26 110/46 Mechanical Ventilator 100 07/31/20 16:24 26 110/46 Mechanical Ventilator 100 07/31/20 16:23 26 110/46 Mechanical Ventilator 100 07/31/20 16:07 100 07/31/20 16:00 101.5 95 26 110/46 (67) 96 07/31/20 16:00 91 07/31/20 16:00 Mechanical Ventilator 07/31/20 16:00 110/46 07/31/20 16:00 26 110/46 Mechanical Ventilator 100 07/31/20 16:00 26 110/46 Mechanical Ventilator 100 07/31/20 15:30 94 26 102/49 (66) 95 07/31/20 15:09 97 26 100 07/31/20 15:00 103/50 07/31/20 15:00 26 103/50 Mechanical Ventilator 100 07/31/20 15:00 26 103/50 Mechanical Ventilator 100 07/31/20 15:00 94 26 103/50 (67) 97 07/31/20 14:30 94 26 97/43 (61) 96 07/31/20 14:30 26 89/48 Mechanical Ventilator 100 07/31/20 14:00 92/47 07/31/20 14:00 26 92/47 Mechanical Ventilator 100 07/31/20 14:00 26 92/47 Mechanical Ventilator 100 07/31/20 14:00 96 26 92/47 (62) 96 07/31/20 13:30 112 24 117/60 (79) 94 07/31/20 13:00 98/52 07/31/20 13:00 26 95/51 Mechanical Ventilator 100 07/31/20 13:00 26 98/52 Mechanical Ventilator 100 07/31/20 13:00 127 15 98/52 (67) 91 07/31/20 12:30 86 26 103/50 (67) 95 07/31/20 12:02 26 92/49 Mechanical Ventilator 100 07/31/20 12:00 Mechanical Ventilator 07/31/20 12:00 100 07/31/20 12:00 26 92/49 Mechanical Ventilator 100 07/31/20 12:00 100.4 86 26 92/49 (63) 96 07/31/20 11:46 87 07/31/20 11:30 85 26 106/52 (70) 94 07/31/20 11:00 81 26 100 07/31/20 11:00 112/47 07/31/20 11:00 26 112/47 Mechanical Ventilator 100 07/31/20 11:00 26 112/47 Mechanical Ventilator 100 07/31/20 11:00 74 26 112/47 (68) 96 07/31/20 10:30 82 26 98/45 (62) 95 07/31/20 10:00 75 26 109/54 (72) 97 07/31/20 10:00 89/43 07/31/20 10:00 26 89/43 Mechanical Ventilator 100 07/31/20 10:00 26 89/43 Mechanical Ventilator 100 07/31/20 09:30 75 26 101/49 (66) 97 07/31/20 09:00 73 26 104/52 (69) 97 07/31/20 09:00 104/52 07/31/20 09:00 26 104/52 Mechanical Ventilator 100 07/31/20 09:00 26 104/52 Mechanical Ventilator 100 07/31/20 08:30 73 25 106/49 (68) 97 07/31/20 08:00 100 07/31/20 08:00 105/44 07/31/20 08:00 26 105/44 Mechanical Ventilator 100 07/31/20 08:00 26 105/44 Mechanical Ventilator 100 07/31/20 08:00 99.1 77 26 105/44 (64) 94 07/31/20 08:00 Mechanical Ventilator 07/31/20 08:00 69 07/31/20 07:30 78 26 106/45 (65) 94 07/31/20 07:08 96 Mechanical Ventilator 100 07/31/20 07:08 74 26 100 07/31/20 07:00 76 26 105/52 (69) 96 07/31/20 07:00 111/49 07/31/20 07:00 23 111/49 Mechanical Ventilator 100 07/31/20 06:43 27 111/47 Mechanical Ventilator 100 07/31/20 06:43 27 111/47 Mechanical Ventilator 100 Intake and Output 07/31/20 08/01/20 19:00 07:00 Intake Total 2309.6106 ml 1569.9536 ml Output Total 685 ml 840 ml Balance 1624.6106 ml 729.9536 ml Free Water 200 ml IV Total 2009.6106 ml 1344.9536 ml Tube Feeding 60 ml 225 ml Other 40 ml Output Urine Total 685 ml 840 ml Laboratory Tests 07/31/20 12:55: POC Whole Blood Glucose 94 07/31/20 16:36: POC Whole Blood Glucose 93 07/31/20 20:24: POC Whole Blood Glucose 91 08/01/20 04:00: White Blood Count 22.1*H, Red Blood Count 4.30L, Hemoglobin 12.9L, Hematocrit 38.3L, Mean Corpuscular Volume 89, Mean Corpuscular Hemoglobin 29.9, Mean Corpuscular Hemoglobin Concent 33.6, Red Cell Distribution Width 14.1, Platelet Count 158, Mean Platelet Volume 7.0, Neutrophils (%) (Auto) , Lymphocytes (%) (Auto) , Monocytes (%) (Auto) , Eosinophils (%) (Auto) , Basophils (%) (Auto) , Neutrophils % (Manual) [Pending], Lymphocytes % (Manual) [Pending], Platelet Estimate [Pending], Platelet Morphology [Pending], Sodium Level 139, Potassium Level 4.0, Chloride Level 106, Carbon Dioxide Level 28, Anion Gap 5, Blood Urea Nitrogen 17, Creatinine 0.7, Estimat Glomerular Filtration Rate > 60, Glucose Level 145#H, Calcium Level 7.1L, Phosphorus Level 2.3L, Magnesium Level 2.0, Total Bilirubin 0.7, Aspartate Amino Transf (AST/SGOT) 20, Alanine Aminotransferase (ALT/SGPT) 10L, Alkaline Phosphatase 99, Total Protein 5.3L, Albumin 1.2L, Globulin 4.1, Albumin/Globulin Ratio 0.3L, Triglycerides Level 235H 08/01/20 05:29: POC Whole Blood Glucose [Pending] Height (Feet): 5 Height (Inches): 6.00 Weight (Pounds): 172 Objective Current Medications Medications (Trade) Dose Ordered Sig/Dalia Route PRN Reason Start Time Stop Time Status Last Admin Dose Admin Acetaminophen (Tylenol) 500 mg Q6H PRN ORAL Mild Pain (Pain Scale 1-3) 07/21/20 08:15 08/20/20 08:14 08/01/20 05:39 Ascorbic Acid (Vitamin C) 500 mg TWICE A DAY ORAL 07/23/20 09:00 08/22/20 08:59 07/31/20 17:26 Chlorhexidine Gluconate (Hiral-Hex 2%) 1 applic DAILY@2000 TOPIC 07/30/20 20:00 10/28/20 19:59 07/31/20 20:25 Dextrose (Dextrose 50%) 25 ml Q30M PRN IV Hypoglycemia 07/21/20 13:30 10/19/20 13:29 Dextrose (Dextrose 50%) 50 ml Q30M PRN IV Hypoglycemia 07/21/20 13:30 10/19/20 13:29 Dopamine HCl/ Dextrose 250 ml @ 0 mls/hr Q24H IV 07/29/20 23:00 08/01/20 22:58 08/01/20 03:27 Enoxaparin Sodium (Lovenox) 40 mg DAILY SUBQ 07/22/20 09:00 10/20/20 08:59 07/31/20 09:27 Fentanyl Citrate 250 ml @ 0 mls/hr Q24H IV 07/31/20 16:30 08/02/20 16:29 08/01/20 02:55 Guaifenesin (Robitussin) 200 mg Q4H PRN ORAL For Cough 07/25/20 12:30 10/23/20 12:29 07/29/20 09:32 Insulin Aspart (NovoLOG) EVERY 4 HOURS SUBQ 07/31/20 09:00 10/19/20 16:29 08/01/20 05:30 Insulin Detemir (Levemir) 14 units EVERY 12 HOURS SUBQ 07/31/20 09:00 10/19/20 20:59 07/31/20 09:29 Lorazepam (Ativan 2mg/ml 1ml) 1 mg Q4H PRN IV For Anxiety 07/29/20 17:15 08/05/20 17:14 07/30/20 04:05 Mirtazapine (Remeron) 15 mg BEDTIME ORAL 07/22/20 21:00 10/20/20 20:59 07/31/20 20:25 Pantoprazole (Protonix) 40 mg DAILY IVP 07/30/20 09:00 08/29/20 08:59 07/31/20 09:26 Piperacillin Sod/ Tazobactam Sod 3.375 gm/Sodium Chloride 110 ml @ 27.5 mls/hr EVERY 8 HOURS IVPB 07/30/20 12:00 08/04/20 11:59 08/01/20 05:27 Propofol 100 ml @ 0 mls/hr Q12H IV 07/31/20 16:30 08/02/20 16:29 08/01/20 05:31 Sodium Chloride 1,000 ml @ 75 mls/hr [id number] IV 07/29/20 22:30 08/28/20 22:29 08/01/20 02:00 Assessment/Plan Problem List: (1) Pneumonia due to COVID-19 virus ICD Codes: U07.1 - COVID-19; J12.89 - Other viral pneumonia SNOMED: [id number] (2) Hyperglycemia due to type 2 diabetes mellitus ICD Codes: E11.65 - Type 2 diabetes mellitus with hyperglycemia; J12.89 - Other viral pneumonia SNOMED: [id number], [id number] Qualifiers: Qualified Codes: E11.65 - Type 2 diabetes mellitus with hyperglycemia (3) Acute respiratory failure with hypoxia ICD Codes: J96.01 - Acute respiratory failure with hypoxia; J12.89 - Other viral pneumonia SNOMED: [id number], [id number] Status: progressing Assessment/Plan: reduce Levemir to 10 units bid continue glucose monitoring and Novolog coverage every 4 hours Sandor Briceño MD Aug 01, 2020 06:31
--- NOTE | 2020-08-01 07:20 | NUR ---
NURSE HAND-OFF REPORT: Latest Vital Signs: Temperature 101.6 , Pulse 88 , B/P 105 /51 , Respiratory Rate 23 , O2 SAT 96 , Mechanical Ventilator, O2 Flow Rate . Vital Sign Comment: Stable on Dopamine EKG Rhythm: Sinus Rhythm Rhythm change?: N MD Notified?: - MD Response: Latest Van Fall Score: 50 Fall Risk: High Risk Safety Measures: Call light Within Reach, Bed Alarm Zone 1, Side Rails Side Rails x3, Bed position Low and Locked. Fall Precautions: Yellow Socks Door Sign Patient Fall Education Report given to .
--- NOTE | 2020-08-01 07:30 | NUR ---
NURSE NOTES: Received report from CHRAMAINE Barajas. Patient orally intubated; ETT 7.5, 24cm @ the lipline with vent settings of AC:26, TV:450, FiO2:100% PEEP:15, O2sat:96%. Patient is sedated RASS -2; awakens to voice and touch. OGT in place and patent running Vital AF @ 35ml/hr. Miranda catheter in place and draining to urometer. PIV LFA #20g. Right femoral TLC running NS @ 75ml/hr, Fentanyl @ 240mcg/hr and Propofol @ 40mcgs and Dopamine @ 12mcg/kg/min. On bilateral soft wrist restraints for safety and prevent from pulling on lines and tubing. Safety measures in place; bed low, locked and alarm is on. Will continue plan of care.
[2020-08-01] MEDS: Pantoprazole Inj IVP SCH (09:25)
[2020-08-01] MEDS: Ascorbic Acid 500mg tab ORAL SCH ×2 (09:25→17:58)
[2020-08-01] MEDS: Enoxaparin 40mg Inj SUBQ SCH (09:26)
--- NOTE | 2020-08-01 09:30 | NUR ---
NURSE NOTES: Dr. Monique at bedside assessing pt. Updated him on pt's current condition.
[2020-08-01] MEDS: Levemir Flexpen SUBQ SCH ×2 (09:51→22:00)
[2020-08-01] MEDS: Acetaminophen 650mg/20.3ml NG PRN (10:31)
--- NOTE | 2020-08-01 10:40 | NUR ---
NURSE NOTES: Pt given Tylenol 650MG via OGT for temp of 100.5 and ice packs placed on the pt to lower temp.
--- NOTE | 2020-08-01 11:17 | Pulmonology Progress Note ---
Subjective ROS Limited/Unobtainable: Yes Interval Events: s/p intubation, sedation, now in ICU Constitutional: Reports: other - tranferred to ICU HEENT: Repors: no symptoms Respiratory: Reports: no symptoms, dry cough Cardiovascular: Reports: no symptoms; Denies: chest pain, palpitations Gastrointestinal/Abdominal: Reports: no symptoms Musculoskeletal: Reports: other - legs cramps Allergies: Coded Allergies: No Known Allergies (Unverified , 07/21/20) All Systems: reviewed and negative except above Objective Last 24 Hour Vital Signs Date Time Temp Pulse Resp B/P (MAP) Pulse Ox O2 Delivery O2 Flow Rate FiO2 08/01/20 11:01 99.9 08/01/20 10:45 85 26 110/50 (70) 96 08/01/20 10:31 115/57 08/01/20 10:30 26 115/52 Mechanical Ventilator 100 08/01/20 10:30 85 25 124/54 (77) 97 08/01/20 10:00 95 24 114/57 (76) 97 08/01/20 10:00 26 114/57 Mechanical Ventilator 100 08/01/20 10:00 26 114/57 Mechanical Ventilator 100 08/01/20 10:00 114/57 08/01/20 09:30 82 26 122/51 (74) 96 08/01/20 09:00 26 122/48 Mechanical Ventilator 100 08/01/20 09:00 26 122/48 Mechanical Ventilator 100 08/01/20 09:00 122/48 08/01/20 09:00 82 24 122/48 (72) 96 08/01/20 08:30 83 25 118/52 (74) 96 08/01/20 08:00 100 08/01/20 08:00 99.8 89 25 112/51 (71) 97 08/01/20 08:00 26 111/52 Mechanical Ventilator 100 08/01/20 08:00 26 111/52 Mechanical Ventilator 100 08/01/20 08:00 111/52 08/01/20 08:00 Mechanical Ventilator 08/01/20 07:15 88 23 105/51 (69) 96 08/01/20 07:00 25 105/51 Mechanical Ventilator 100 08/01/20 07:00 25 105/51 Mechanical Ventilator 100 08/01/20 07:00 105/25 08/01/20 07:00 90 25 108/52 (70) 96 08/01/20 06:55 87 26 100 08/01/20 06:45 94 23 108/49 (68) 96 08/01/20 06:30 99 23 110/52 (71) 96 08/01/20 06:15 107 24 102/50 (67) 95 08/01/20 06:00 109 22 117/56 (76) 95 08/01/20 06:00 22 117/56 Mechanical Ventilator 100 08/01/20 06:00 22 117/56 Mechanical Ventilator 100 08/01/20 06:00 117/56 08/01/20 05:31 22 107/53 Mechanical Ventilator 100 08/01/20 05:30 110 20 107/53 (71) 95 08/01/20 05:00 101.6 108 23 108/52 (70) 96 08/01/20 05:00 24 108/52 Mechanical Ventilator 100 08/01/20 05:00 24 108/52 Mechanical Ventilator 100 08/01/20 05:00 108/52 08/01/20 04:00 100 08/01/20 04:00 107 20 105/60 (75) 96 08/01/20 04:00 24 105/60 Mechanical Ventilator 100 08/01/20 04:00 24 105/60 Mechanical Ventilator 100 08/01/20 04:00 105/60 08/01/20 04:00 Mechanical Ventilator 08/01/20 03:32 108 08/01/20 03:30 108 28 100 08/01/20 03:27 105/50 08/01/20 03:00 23 111/59 Mechanical Ventilator 100 08/01/20 03:00 23 111/59 Mechanical Ventilator 100 08/01/20 03:00 111/59 08/01/20 03:00 105 24 111/59 (76) 96 08/01/20 02:55 24 108/56 Mechanical Ventilator 100 08/01/20 02:00 102 26 112/46 (68) 97 08/01/20 02:00 25 112/46 Mechanical Ventilator 100 08/01/20 02:00 25 112/46 Mechanical Ventilator 100 08/01/20 02:00 112/46 08/01/20 01:00 26 112/50 Mechanical Ventilator 100 08/01/20 01:00 26 112/50 Mechanical Ventilator 100 12/23/20 01:00 112/50 08/01/20 01:00 97 26 112/50 (70) 96 08/01/20 00:06 95 08/01/20 00:00 Mechanical Ventilator 08/01/20 00:00 26 111/54 Mechanical Ventilator 100 08/01/20 00:00 26 111/54 Mechanical Ventilator 100 08/01/20 00:00 111/54 08/01/20 00:00 100.0 94 25 111/54 (73) 97 07/31/20 23:30 93 26 100 07/31/20 23:13 26 119/51 Mechanical Ventilator 100 07/31/20 23:00 88 26 119/51 (73) 99 07/31/20 23:00 26 119/51 Mechanical Ventilator 100 07/31/20 23:00 26 119/51 Mechanical Ventilator 100 07/31/20 23:00 119/51 07/31/20 22:00 84 26 121/50 (73) 98 07/31/20 22:00 26 121/50 Mechanical Ventilator 100 07/31/20 22:00 26 111/50 Mechanical Ventilator 100 07/31/20 22:00 111/50 07/31/20 21:00 76 26 116/44 (68) 99 07/31/20 21:00 26 109/51 Mechanical Ventilator 100 07/31/20 21:00 26 109/51 Mechanical Ventilator 100 07/31/20 20:21 80/38 07/31/20 20:00 100 07/31/20 20:00 Mechanical Ventilator 07/31/20 20:00 99.7 71 26 115/46 (69) 98 07/31/20 20:00 26 80/38 Mechanical Ventilator 100 07/31/20 20:00 26 80/38 Mechanical Ventilator 100 20 20:00 80/38 20 19:30 73 07/31/20 19:17 70 26 100 07/31/20 19:00 74 26 114/46 (68) 97 20 19:00 26 114/46 Mechanical Ventilator 100 07/31/20 19:00 26 114/46 Mechanical Ventilator 100 07/31/20 19:00 114/46 07/31/20 18:30 72 26 101/49 (66) 97 07/31/20 18:00 73 26 110/46 (67) 97 12/22/20 18:00 26 110/46 Mechanical Ventilator 100 07/31/20 18:00 26 110/46 Mechanical Ventilator 100 07/31/20 18:00 110/46 07/31/20 17:37 100.1 07/31/20 17:30 80 26 104/51 (68) 96 07/31/20 17:00 26 105/46 Mechanical Ventilator 100 07/31/20 17:00 26 105/46 Non-Rebreather 100 07/31/20 17:00 105/46 07/31/20 17:00 84 26 105/47 (66) 95 07/31/20 16:30 88 26 106/51 (69) 96 07/31/20 16:27 26 110/46 Mechanical Ventilator 100 07/31/20 16:24 26 110/46 Mechanical Ventilator 100 07/31/20 16:23 26 110/46 Mechanical Ventilator 100 07/31/20 16:07 100 07/31/20 16:00 101.5 95 26 110/46 (67) 96 07/31/20 16:00 91 07/31/20 16:00 Mechanical Ventilator 07/31/20 16:00 110/46 07/31/20 16:00 26 110/46 Mechanical Ventilator 100 07/31/20 16:00 26 110/46 Mechanical Ventilator 100 07/31/20 15:30 94 26 102/49 (66) 95 07/31/20 15:09 97 26 100 07/31/20 15:00 103/50 07/31/20 15:00 26 103/50 Mechanical Ventilator 100 07/31/20 15:00 26 103/50 Mechanical Ventilator 100 07/31/20 15:00 94 26 103/50 (67) 97 07/31/20 14:30 94 26 97/43 (61) 96 07/31/20 14:30 26 89/48 Mechanical Ventilator 100 07/31/20 14:00 92/47 07/31/20 14:00 26 92/47 Mechanical Ventilator 100 07/31/20 14:00 26 92/47 Mechanical Ventilator 100 07/31/20 14:00 96 26 92/47 (62) 96 07/31/20 13:30 112 24 117/60 (79) 94 07/31/20 13:00 98/52 07/31/20 13:00 26 95/51 Mechanical Ventilator 100 12/22/20 13:00 26 98/52 Mechanical Ventilator 100 07/31/20 13:00 127 15 98/52 (67) 91 07/31/20 12:30 86 26 103/50 (67) 95 07/31/20 12:02 26 92/49 Mechanical Ventilator 100 07/31/20 12:00 Mechanical Ventilator 07/31/20 12:00 100 07/31/20 12:00 26 92/49 Mechanical Ventilator 100 07/31/20 12:00 100.4 86 26 92/49 (63) 96 07/31/20 11:46 87 07/31/20 11:30 85 26 106/52 (70) 94 Intake and Output 07/31/20 08/01/20 19:00 07:00 Intake Total 2309.6106 ml 2087.4056 ml Output Total 685 ml 900 ml Balance 1624.6106 ml 1187.4056 ml Free Water 200 ml IV Total 2009.6106 ml 1827.4056 ml Tube Feeding 60 ml 260 ml Other 40 ml Output Urine Total 685 ml 900 ml General Appearance: no acute distress HEENT: normocephalic Respiratory: chest wall non-tender, crackles/rales Cardiovascular: normal peripheral pulses, normal rate Abdomen: normal bowel sounds Extremities: no cyanosis, no clubbing Laboratory Tests 07/31/20 12:55: POC Whole Blood Glucose 94 07/31/20 16:36: POC Whole Blood Glucose 93 07/31/20 20:24: POC Whole Blood Glucose 91 08/01/20 04:00: White Blood Count 22.1*H, Red Blood Count 4.30L, Hemoglobin 12.9L, Hematocrit 38.3L, Mean Corpuscular Volume 89, Mean Corpuscular Hemoglobin 29.9, Mean Corpuscular Hemoglobin Concent 33.6, Red Cell Distribution Width 14.1, Platelet Count 158, Mean Platelet Volume 7.0, Neutrophils (%) (Auto) , Lymphocytes (%) (Auto) , Monocytes (%) (Auto) , Eosinophils (%) (Auto) , Basophils (%) (Auto) , Differential Total Cells Counted 100, Neutrophils % (Manual) 87H, Lymphocytes % (Manual) 6L, Monocytes % (Manual) 5, Eosinophils % (Manual) 2, Basophils % (Manual) 0, Band Neutrophils 0, Platelet Estimate Adequate, Platelet Morphology Normal, Anisocytosis 1+, Sodium Level 139, Potassium Level 4.0, Chloride Level 106, Carbon Dioxide Level 28, Anion Gap 5, Blood Urea Nitrogen 17, Creatinine 0.7, Estimat Glomerular Filtration Rate > 60, Glucose Level 145#H, Calcium Level 7.1L, Phosphorus Level 2.3L, Magnesium Level 2.0, Total Bilirubin 0.7, Aspartate Amino Transf (AST/SGOT) 20, Alanine Aminotransferase (ALT/SGPT) 10L, Alkaline Phosphatase 99, Total Protein 5.3L, Albumin 1.2L, Globulin 4.1, Albumin/Globulin Ratio 0.3L, Triglycerides Level 235H 08/01/20 05:29: POC Whole Blood Glucose [Pending] Current Medications Medications (Trade) Dose Ordered Sig/Dalia Route PRN Reason Start Time Stop Time Status Last Admin Dose Admin Acetaminophen (Tylenol) 500 mg Q6H PRN ORAL Mild Pain (Pain Scale 1-3) 07/21/20 08:15 08/20/20 08:14 08/01/20 05:39 Acetaminophen (Tylenol) 650 mg Q6H PRN NG Temp >100.5 08/01/20 10:30 08/31/20 10:29 08/01/20 10:31 Ascorbic Acid (Vitamin C) 500 mg TWICE A DAY ORAL 07/23/20 09:00 08/22/20 08:59 08/01/20 09:25 Chlorhexidine Gluconate (Hiral-Hex 2%) 1 applic DAILY@2000 TOPIC 07/30/20 20:00 10/28/20 19:59 07/31/20 20:25 Dextrose (Dextrose 50%) 25 ml Q30M PRN IV Hypoglycemia 07/21/20 13:30 10/19/20 13:29 Dextrose (Dextrose 50%) 50 ml Q30M PRN IV Hypoglycemia 07/21/20 13:30 10/19/20 13:29 Dopamine HCl/ Dextrose 250 ml @ 0 mls/hr Q24H IV 07/29/20 23:00 08/01/20 22:58 08/01/20 10:31 Enoxaparin Sodium (Lovenox) 40 mg DAILY SUBQ 07/22/20 09:00 10/20/20 08:59 08/01/20 09:26 Fentanyl Citrate 250 ml @ 0 mls/hr Q24H IV 07/31/20 16:30 08/02/20 16:29 08/01/20 02:55 Guaifenesin (Robitussin) 200 mg Q4H PRN ORAL For Cough 07/25/20 12:30 10/23/20 12:29 07/29/20 09:32 Insulin Aspart (NovoLOG) EVERY 4 HOURS SUBQ 07/31/20 09:00 10/19/20 16:29 08/01/20 09:52 Insulin Detemir (Levemir) 10 units EVERY 12 HOURS SUBQ 08/01/20 09:00 10/19/20 20:59 08/01/20 09:51 Lorazepam (Ativan 2mg/ml 1ml) 1 mg Q4H PRN IV For Anxiety 07/29/20 17:15 08/05/20 17:14 07/30/20 04:05 Mirtazapine (Remeron) 15 mg BEDTIME ORAL 07/22/20 21:00 10/20/20 20:59 07/31/20 20:25 Pantoprazole (Protonix) 40 mg DAILY IVP 07/30/20 09:00 08/29/20 08:59 08/01/20 09:25 Piperacillin Sod/ Tazobactam Sod 3.375 gm/Sodium Chloride 110 ml @ 27.5 mls/hr EVERY 8 HOURS IVPB 07/30/20 12:00 08/04/20 11:59 08/01/20 05:27 Propofol 100 ml @ 0 mls/hr Q12H IV 07/31/20 16:30 08/02/20 16:29 08/01/20 10:30 Sodium Chloride 1,000 ml @ 75 mls/hr [id number] IV 07/29/20 22:30 08/28/20 22:29 08/01/20 02:00 Assessment/Plan Assessment/Plan Assessment/Plan 1. COVID-19 pneumonia/Respiratory Failure - On Decadron - on remdesivir per ID specialist - Intubated - On AC mode; FiO2 100 %; PEEP 15 - ABG reviewed - On dopamine; Central line in place - on propofol and fentanyl - will monitor for elevated TG's - CXR 07/24 Marked worsening of bilateral infiltrates 2. Elevated inflammatory markers. 3. Diabetes mellitus. -On insulin as needed 4. DVT prophylaxis - On Lovenox Pradeep Fiore MD, MD Aug 01, 2020 11:17
--- NOTE | 2020-08-01 11:49 | Nephrology Progress Note ---
Assessment/Plan Problem List: (1) Pneumonia due to COVID-19 virus (2) Acute respiratory failure with hypoxia (3) Hyperglycemia due to type 2 diabetes mellitus (4) Oliguria Assessment: Likely due to hypotension Assessment Oliguria due to hypotension On low-dose pressors COVID-19 disease seems to be severe. Diabetes mellitus with hyperglycemia. Hypoxic respiratory failure Lymphocytopenia. Sinus tachycardia Leukocytosis Plan August 01: Labs reviewed. Renal parameters stable. Low phosphorus replaced. Continue per consultants. July 31: Urine output improved. Renal parameters and electrolytes stable. Continue per consultants. Continue per pulmonary Continue per ID Keep the blood pressure over 100 systolic Monitor renal parameters and urine output Avoid nephrotoxic's Per orders Subjective ROS Limited/Unobtainable: Yes Objective Objective Last 24 Hour Vital Signs Date Time Temp Pulse Resp B/P (MAP) Pulse Ox O2 Delivery O2 Flow Rate FiO2 08/01/20 11:01 99.9 08/01/20 10:45 85 26 110/50 (70) 96 08/01/20 10:31 115/57 08/01/20 10:30 26 115/52 Mechanical Ventilator 100 08/01/20 10:30 85 25 124/54 (77) 97 08/01/20 10:00 95 24 114/57 (76) 97 08/01/20 10:00 26 114/57 Mechanical Ventilator 100 08/01/20 10:00 26 114/57 Mechanical Ventilator 100 08/01/20 10:00 114/57 08/01/20 09:30 82 26 122/51 (74) 96 08/01/20 09:00 26 122/48 Mechanical Ventilator 100 08/01/20 09:00 26 122/48 Mechanical Ventilator 100 08/01/20 09:00 122/48 08/01/20 09:00 82 24 122/48 (72) 96 08/01/20 08:30 83 25 118/52 (74) 96 08/01/20 08:00 100 08/01/20 08:00 99.8 89 25 112/51 (71) 97 08/01/20 08:00 26 111/52 Mechanical Ventilator 100 08/01/20 08:00 26 111/52 Mechanical Ventilator 100 08/01/20 08:00 111/52 08/01/20 08:00 Mechanical Ventilator 08/01/20 07:15 88 23 105/51 (69) 96 08/01/20 07:00 25 105/51 Mechanical Ventilator 100 08/01/20 07:00 25 105/51 Mechanical Ventilator 100 08/01/20 07:00 105/25 08/01/20 07:00 90 25 108/52 (70) 96 08/01/20 06:55 87 26 100 08/01/20 06:45 94 23 108/49 (68) 96 08/01/20 06:30 99 23 110/52 (71) 96 08/01/20 06:15 107 24 102/50 (67) 95 08/01/20 06:00 109 22 117/56 (76) 95 08/01/20 06:00 22 117/56 Mechanical Ventilator 100 08/01/20 06:00 22 117/56 Mechanical Ventilator 100 08/01/20 06:00 117/56 08/01/20 05:31 22 107/53 Mechanical Ventilator 100 08/01/20 05:30 110 20 107/53 (71) 95 08/01/20 05:00 101.6 108 23 108/52 (70) 96 08/01/20 05:00 24 108/52 Mechanical Ventilator 100 08/01/20 05:00 24 108/52 Mechanical Ventilator 100 08/01/20 05:00 108/52 08/01/20 04:00 100 08/01/20 04:00 107 20 105/60 (75) 96 08/01/20 04:00 24 105/60 Mechanical Ventilator 100 08/01/20 04:00 24 105/60 Mechanical Ventilator 100 08/01/20 04:00 105/60 08/01/20 04:00 Mechanical Ventilator 08/01/20 03:32 108 08/01/20 03:30 108 28 100 08/01/20 03:27 105/50 08/01/20 03:00 23 111/59 Mechanical Ventilator 100 08/01/20 03:00 23 111/59 Mechanical Ventilator 100 08/01/20 03:00 111/59 08/01/20 03:00 105 24 111/59 (76) 96 08/01/20 02:55 24 108/56 Mechanical Ventilator 100 08/01/20 02:00 102 26 112/46 (68) 97 08/01/20 02:00 25 112/46 Mechanical Ventilator 100 08/01/20 02:00 25 112/46 Mechanical Ventilator 100 08/01/20 02:00 112/46 08/01/20 01:00 26 112/50 Mechanical Ventilator 100 08/01/20 01:00 26 112/50 Mechanical Ventilator 100 08/01/20 01:00 112/50 08/01/20 01:00 97 26 112/50 (70) 96 08/01/20 00:06 95 08/01/20 00:00 Mechanical Ventilator 08/01/20 00:00 26 111/54 Mechanical Ventilator 100 08/01/20 00:00 26 111/54 Mechanical Ventilator 100 08/01/20 00:00 111/54 08/01/20 00:00 100.0 94 25 111/54 (73) 97 07/31/20 23:30 93 26 100 07/31/20 23:13 26 119/51 Mechanical Ventilator 100 07/31/20 23:00 88 26 119/51 (73) 99 07/31/20 23:00 26 119/51 Mechanical Ventilator 100 07/31/20 23:00 26 119/51 Mechanical Ventilator 100 07/31/20 23:00 119/51 07/31/20 22:00 84 26 121/50 (73) 98 07/31/20 22:00 26 121/50 Mechanical Ventilator 100 07/31/20 22:00 26 111/50 Mechanical Ventilator 100 07/31/20 22:00 111/50 07/31/20 21:00 76 26 116/44 (68) 99 07/31/20 21:00 26 109/51 Mechanical Ventilator 100 07/31/20 21:00 26 109/51 Mechanical Ventilator 100 07/31/20 20:21 80/38 07/31/20 20:00 100 07/31/20 20:00 Mechanical Ventilator 07/31/20 20:00 99.7 71 26 115/46 (69) 98 07/31/20 20:00 26 80/38 Mechanical Ventilator 100 20 20:00 26 80/38 Mechanical Ventilator 100 20 20:00 80/38 07/31/20 19:30 73 07/31/20 19:17 70 26 100 07/31/20 19:00 74 26 114/46 (68) 97 07/31/20 19:00 26 114/46 Mechanical Ventilator 100 07/31/20 19:00 26 114/46 Mechanical Ventilator 100 07/31/20 19:00 114/46 12/22/20 18:30 72 26 101/49 (66) 97 07/31/20 18:00 73 26 110/46 (67) 97 07/31/20 18:00 26 110/46 Mechanical Ventilator 100 07/31/20 18:00 26 110/46 Mechanical Ventilator 100 07/31/20 18:00 110/46 07/31/20 17:37 100.1 07/31/20 17:30 80 26 104/51 (68) 96 07/31/20 17:00 26 105/46 Mechanical Ventilator 100 07/31/20 17:00 26 105/46 Non-Rebreather 100 07/31/20 17:00 105/46 07/31/20 17:00 84 26 105/47 (66) 95 07/31/20 16:30 88 26 106/51 (69) 96 07/31/20 16:27 26 110/46 Mechanical Ventilator 100 07/31/20 16:24 26 110/46 Mechanical Ventilator 100 07/31/20 16:23 26 110/46 Mechanical Ventilator 100 07/31/20 16:07 100 07/31/20 16:00 101.5 95 26 110/46 (67) 96 07/31/20 16:00 91 07/31/20 16:00 Mechanical Ventilator 07/31/20 16:00 110/46 07/31/20 16:00 26 110/46 Mechanical Ventilator 100 07/31/20 16:00 26 110/46 Mechanical Ventilator 100 07/31/20 15:30 94 26 102/49 (66) 95 07/31/20 15:09 97 26 100 07/31/20 15:00 103/50 07/31/20 15:00 26 103/50 Mechanical Ventilator 100 07/31/20 15:00 26 103/50 Mechanical Ventilator 100 07/31/20 15:00 94 26 103/50 (67) 97 07/31/20 14:30 94 26 97/43 (61) 96 07/31/20 14:30 26 89/48 Mechanical Ventilator 100 07/31/20 14:00 92/47 07/31/20 14:00 26 92/47 Mechanical Ventilator 100 07/31/20 14:00 26 92/47 Mechanical Ventilator 100 07/31/20 14:00 96 26 92/47 (62) 96 07/31/20 13:30 112 24 117/60 (79) 94 07/31/20 13:00 98/52 07/31/20 13:00 26 95/51 Mechanical Ventilator 100 07/31/20 13:00 26 98/52 Mechanical Ventilator 100 07/31/20 13:00 127 15 98/52 (67) 91 07/31/20 12:30 86 26 103/50 (67) 95 07/31/20 12:02 26 92/49 Mechanical Ventilator 100 07/31/20 12:00 Mechanical Ventilator 07/31/20 12:00 100 07/31/20 12:00 26 92/49 Mechanical Ventilator 100 07/31/20 12:00 100.4 86 26 92/49 (63) 96 Intake and Output 07/31/20 08/01/20 19:00 07:00 Intake Total 2309.6106 ml 2087.4056 ml Output Total 685 ml 900 ml Balance 1624.6106 ml 1187.4056 ml Free Water 200 ml IV Total 2009.6106 ml 1827.4056 ml Tube Feeding 60 ml 260 ml Other 40 ml Output Urine Total 685 ml 900 ml Laboratory Tests 07/31/20 12:55: POC Whole Blood Glucose 94 07/31/20 16:36: POC Whole Blood Glucose 93 07/31/20 20:24: POC Whole Blood Glucose 91 08/01/20 04:00: White Blood Count 22.1*H, Red Blood Count 4.30L, Hemoglobin 12.9L, Hematocrit 38.3L, Mean Corpuscular Volume 89, Mean Corpuscular Hemoglobin 29.9, Mean Corpu scular Hemoglobin Concent 33.6, Red Cell Distribution Width 14.1, Platelet Count 158, Mean Platelet Volume 7.0, Neutrophils (%) (Auto) , Lymphocytes (%) (Auto) , Monocytes (%) (Auto) , Eosinophils (%) (Auto) , Basophils (%) (Auto) , Differential Total Cells Counted 100, Neutrophils % (Manual) 87H, Lymphocytes % (Manual) 6L, Monocytes % (Manual) 5, Eosinophils % (Manual) 2, Basophils % (Manual) 0, Band Neutrophils 0, Platelet Estimate Adequate, Platelet Morphology Normal, Anisocytosis 1+, Sodium Level 139, Potassium Level 4.0, Chloride Level 106, Carbon Dioxide Level 28, Anion Gap 5, Blood Urea Nitrogen 17, Creatinine 0.7, Estimat Glomerular Filtration Rate > 60, Glucose Level 145#H, Calcium Level 7.1L, Phosphorus Level 2.3L, Magnesium Level 2.0, Total Bilirubin 0.7, Aspartate Amino Transf (AST/SGOT) 20, Alanine Aminotransferase (ALT/SGPT) 10L, Alkaline Phosphatase 99, Total Protein 5.3L, Albumin 1.2L, Globulin 4.1, Albumin/Globulin Ratio 0.3L, Triglycerides Level 235H 08/01/20 05:29: POC Whole Blood Glucose [Pending] Height (Feet): 5 Height (Inches): 6.00 Weight (Pounds): 172 General Appearance: no apparent distress EENT: other Cardiovascular: normal rate - Rate 80s Respiratory/Chest: decreased breath sounds Abdomen: distended José Luis Preciado MD Aug 01, 2020 11:49
--- NOTE | 2020-08-01 12:00 | NUR ---
NURSE NOTES: Pt turned and repositioned. Oral care done. Pt's temp WNL 98.9. No distress noted at this time.
--- NOTE | 2020-08-01 12:35 | Infectious Diseases Prog Note ---
Assessment/Plan Assessment/Plan antibiotics : zosyn A 1. COVID-19 pneumonia on 100 % Fi O2, 91 % saturation s/p remdesivir 2. Diabetes mellitus 3. respiratory failure 4. leucocytosis likely secondary to steroids P 1. continue zosyn 2. start solumedrol 3. continue isolation Subjective ROS Limited/Unobtainable: Yes Allergies: Coded Allergies: No Known Allergies (Unverified , 07/21/20) Objective Last 24 Hour Vital Signs Date Time Temp Pulse Resp B/P (MAP) Pulse Ox O2 Delivery O2 Flow Rate FiO2 08/01/20 11:01 99.9 08/01/20 10:45 85 26 110/50 (70) 96 08/01/20 10:31 115/57 08/01/20 10:30 26 115/52 Mechanical Ventilator 100 08/01/20 10:30 85 25 124/54 (77) 97 08/01/20 10:00 95 24 114/57 (76) 97 08/01/20 10:00 26 114/57 Mechanical Ventilator 100 08/01/20 10:00 26 114/57 Mechanical Ventilator 100 08/01/20 10:00 114/57 08/01/20 09:30 82 26 122/51 (74) 96 08/01/20 09:00 26 122/48 Mechanical Ventilator 100 08/01/20 09:00 26 122/48 Mechanical Ventilator 100 08/01/20 09:00 122/48 08/01/20 09:00 82 24 122/48 (72) 96 08/01/20 08:30 83 25 118/52 (74) 96 08/01/20 08:00 100 08/01/20 08:00 99.8 89 25 112/51 (71) 97 08/01/20 08:00 26 111/52 Mechanical Ventilator 100 08/01/20 08:00 26 111/52 Mechanical Ventilator 100 08/01/20 08:00 111/52 08/01/20 08:00 Mechanical Ventilator 08/01/20 07:15 88 23 105/51 (69) 96 08/01/20 07:00 25 105/51 Mechanical Ventilator 100 08/01/20 07:00 25 105/51 Mechanical Ventilator 100 08/01/20 07:00 105/25 08/01/20 07:00 90 25 108/52 (70) 96 08/01/20 06:55 87 26 100 08/01/20 06:45 94 23 108/49 (68) 96 08/01/20 06:30 99 23 110/52 (71) 96 08/01/20 06:15 107 24 102/50 (67) 95 08/01/20 06:00 109 22 117/56 (76) 95 08/01/20 06:00 22 117/56 Mechanical Ventilator 100 08/01/20 06:00 22 117/56 Mechanical Ventilator 100 08/01/20 06:00 117/56 08/01/20 05:31 22 107/53 Mechanical Ventilator 100 08/01/20 05:30 110 20 107/53 (71) 95 08/01/20 05:00 101.6 108 23 108/52 (70) 96 08/01/20 05:00 24 108/52 Mechanical Ventilator 100 08/01/20 05:00 24 108/52 Mechanical Ventilator 100 08/01/20 05:00 108/52 08/01/20 04:00 100 08/01/20 04:00 107 20 105/60 (75) 96 08/01/20 04:00 24 105/60 Mechanical Ventilator 100 08/01/20 04:00 24 105/60 Mechanical Ventilator 100 08/01/20 04:00 105/60 08/01/20 04:00 Mechanical Ventilator 08/01/20 03:32 108 08/01/20 03:30 108 28 100 08/01/20 03:27 105/50 08/01/20 03:00 23 111/59 Mechanical Ventilator 100 08/01/20 03:00 23 111/59 Mechanical Ventilator 100 08/01/20 03:00 111/59 08/01/20 03:00 105 24 111/59 (76) 96 08/01/20 02:55 24 108/56 Mechanical Ventilator 100 08/01/20 02:00 102 26 112/46 (68) 97 08/01/20 02:00 25 112/46 Mechanical Ventilator 100 08/01/20 02:00 25 112/46 Mechanical Ventilator 100 08/01/20 02:00 112/46 08/01/20 01:00 26 112/50 Mechanical Ventilator 100 08/01/20 01:00 26 112/50 Mechanical Ventilator 100 08/01/20 01:00 112/50 08/01/20 01:00 97 26 112/50 (70) 96 12/23/20 00:06 95 08/01/20 00:00 Mechanical Ventilator 08/01/20 00:00 26 111/54 Mechanical Ventilator 100 08/01/20 00:00 26 111/54 Mechanical Ventilator 100 08/01/20 00:00 111/54 08/01/20 00:00 100.0 94 25 111/54 (73) 97 07/31/20 23:30 93 26 100 07/31/20 23:13 26 119/51 Mechanical Ventilator 100 07/31/20 23:00 88 26 119/51 (73) 99 07/31/20 23:00 26 119/51 Mechanical Ventilator 100 07/31/20 23:00 26 119/51 Mechanical Ventilator 100 07/31/20 23:00 119/51 07/31/20 22:00 84 26 121/50 (73) 98 07/31/20 22:00 26 121/50 Mechanical Ventilator 100 07/31/20 22:00 26 111/50 Mechanical Ventilator 100 07/31/20 22:00 111/50 07/31/20 21:00 76 26 116/44 (68) 99 07/31/20 21:00 26 109/51 Mechanical Ventilator 100 07/31/20 21:00 26 109/51 Mechanical Ventilator 100 07/31/20 20:21 80/38 07/31/20 20:00 100 07/31/20 20:00 Mechanical Ventilator 07/31/20 20:00 99.7 71 26 115/46 (69) 98 07/31/20 20:00 26 80/38 Mechanical Ventilator 100 07/31/20 20:00 26 80/38 Mechanical Ventilator 100 07/31/20 20:00 80/38 20 19:30 73 07/31/20 19:17 70 26 100 07/31/20 19:00 74 26 114/46 (68) 97 07/31/20 19:00 26 114/46 Mechanical Ventilator 100 07/31/20 19:00 26 114/46 Mechanical Ventilator 100 07/31/20 19:00 114/46 07/31/20 18:30 72 26 101/49 (66) 97 20 18:00 73 26 110/46 (67) 97 07/31/20 18:00 26 110/46 Mechanical Ventilator 100 12/22/20 18:00 26 110/46 Mechanical Ventilator 100 07/31/20 18:00 110/46 07/31/20 17:37 100.1 07/31/20 17:30 80 26 104/51 (68) 96 07/31/20 17:00 26 105/46 Mechanical Ventilator 100 07/31/20 17:00 26 105/46 Non-Rebreather 100 07/31/20 17:00 105/46 07/31/20 17:00 84 26 105/47 (66) 95 07/31/20 16:30 88 26 106/51 (69) 96 07/31/20 16:27 26 110/46 Mechanical Ventilator 100 07/31/20 16:24 26 110/46 Mechanical Ventilator 100 07/31/20 16:23 26 110/46 Mechanical Ventilator 100 07/31/20 16:07 100 07/31/20 16:00 101.5 95 26 110/46 (67) 96 07/31/20 16:00 91 07/31/20 16:00 Mechanical Ventilator 07/31/20 16:00 110/46 07/31/20 16:00 26 110/46 Mechanical Ventilator 100 07/31/20 16:00 26 110/46 Mechanical Ventilator 100 07/31/20 15:30 94 26 102/49 (66) 95 07/31/20 15:09 97 26 100 07/31/20 15:00 103/50 07/31/20 15:00 26 103/50 Mechanical Ventilator 100 07/31/20 15:00 26 103/50 Mechanical Ventilator 100 07/31/20 15:00 94 26 103/50 (67) 97 07/31/20 14:30 94 26 97/43 (61) 96 07/31/20 14:30 26 89/48 Mechanical Ventilator 100 07/31/20 14:00 92/47 07/31/20 14:00 26 92/47 Mechanical Ventilator 100 07/31/20 14:00 26 92/47 Mechanical Ventilator 100 07/31/20 14:00 96 26 92/47 (62) 96 07/31/20 13:30 112 24 117/60 (79) 94 07/31/20 13:00 98/52 07/31/20 13:00 26 95/51 Mechanical Ventilator 100 07/31/20 13:00 26 98/52 Mechanical Ventilator 100 12/22/20 13:00 127 15 98/52 (67) 91 Height (Feet): 5 Height (Inches): 6.00 Weight (Pounds): 172 HEENT: other - intubated Laboratory Tests Test 07/31/20 12:55 07/31/20 16:36 07/31/20 20:24 08/01/20 04:00 POC Whole Blood Glucose 94 MG/DL (74-106) 93 MG/DL (74-106) 91 MG/DL (74-106) White Blood Count 22.1 K/UL (4.8-10.8) *H Red Blood Count 4.30 M/UL (4.70-6.10) L Hemoglobin 12.9 G/DL (14.2-18.0) L Hematocrit 38.3 % (42.0-52.0) L Mean Corpuscular Volume 89 FL (80-99) Mean Corpuscular Hemoglobin 29.9 PG (27.0-31.0) Mean Corpuscular Hemoglobin Concent 33.6 G/DL (32.0-36.0) Red Cell Distribution Width 14.1 % (11.6-14.8) Platelet Count 158 K/UL (150-450) Mean Platelet Volume 7.0 FL (6.5-10.1) Neutrophils (%) (Auto) % (45.0-75.0) Lymphocytes (%) (Auto) % (20.0-45.0) Monocytes (%) (Auto) % (1.0-10.0) Eosinophils (%) (Auto) % (0.0-3.0) Basophils (%) (Auto) % (0.0-2.0) Differential Total Cells Counted 100 Neutrophils % (Manual) 87 % (45-75) H Lymphocytes % (Manual) 6 % (20-45) L Monocytes % (Manual) 5 % (1-10) Eosinophils % (Manual) 2 % (0-3) Basophils % (Manual) 0 % (0-2) Band Neutrophils 0 % (0-8) Platelet Estimate Adequate Platelet Morphology Normal Anisocytosis 1+ Sodium Level 139 MMOL/L (136-145) Potassium Level 4.0 MMOL/L (3.5-5.1) Chloride Level 106 MMOL/L (98-107) Carbon Dioxide Level 28 MMOL/L (21-32) Anion Gap 5 mmol/L (5-15) Blood Urea Nitrogen 17 mg/dL (7-18) Creatinine 0.7 MG/DL (0.55-1.30) Estimat Glomerular Filtration Rate > 60 mL/min (>60) Glucose Level 145 MG/DL (74-106) #H Calcium Level 7.1 MG/DL (8.5-10.1) L Phosphorus Level 2.3 MG/DL (2.5-4.9) L Magnesium Level 2.0 MG/DL (1.8-2.4) Total Bilirubin 0.7 MG/DL (0.2-1.0) Aspartate Amino Transf (AST/SGOT) 20 U/L (15-37) Alanine Aminotransferase (ALT/SGPT) 10 U/L (12-78) L Alkaline Phosphatase 99 U/L (46-116) Total Protein 5.3 G/DL (6.4-8.2) L Albumin 1.2 G/DL (3.4-5.0) L Globulin 4.1 g/dL Albumin/Globulin Ratio 0.3 (1.0-2.7) L Triglycerides Level 235 MG/DL (30-150) H Test 08/01/20 05:29 POC Whole Blood Glucose Pending Current Medications Medications (Trade) Dose Ordered Sig/Dalia Route PRN Reason Start Time Stop Time Status Last Admin Dose Admin Acetaminophen (Tylenol) 500 mg Q6H PRN ORAL Mild Pain (Pain Scale 1-3) 07/21/20 08:15 08/20/20 08:14 08/01/20 05:39 Acetaminophen (Tylenol) 650 mg Q6H PRN NG Temp >100.5 08/01/20 10:30 08/31/20 10:29 08/01/20 10:31 Ascorbic Acid (Vitamin C) 500 mg TWICE A DAY ORAL 07/23/20 09:00 08/22/20 08:59 08/01/20 09:25 Chlorhexidine Gluconate (Hiral-Hex 2%) 1 applic DAILY@1999 TOPIC 07/30/20 20:00 10/28/20 19:59 07/31/20 20:25 Dextrose (Dextrose 50%) 25 ml Q30M PRN IV Hypoglycemia 07/21/20 13:30 10/19/20 13:29 Dextrose (Dextrose 50%) 50 ml Q30M PRN IV Hypoglycemia 07/21/20 13:30 10/19/20 13:29 Dopamine HCl/ Dextrose 250 ml @ 0 mls/hr Q24H IV 07/29/20 23:00 08/01/20 22:58 08/01/20 10:31 Enoxaparin Sodium (Lovenox) 40 mg DAILY SUBQ 07/22/20 09:00 10/20/20 08:59 08/01/20 09:26 Fentanyl Citrate 250 ml @ 0 mls/hr Q24H IV 07/31/20 16:30 08/02/20 16:29 08/01/20 02:55 Guaifenesin (Robitussin) 200 mg Q4H PRN ORAL For Cough 07/25/20 12:30 10/23/20 12:29 07/29/20 09:32 Insulin Aspart (NovoLOG) EVERY 4 HOURS SUBQ 07/31/20 09:00 10/19/20 16:29 08/01/20 09:52 Insulin Detemir (Levemir) 10 units EVERY 12 HOURS SUBQ 08/01/20 09:00 10/19/20 20:59 08/01/20 09:51 Lorazepam (Ativan 2mg/ml 1ml) 1 mg Q4H PRN IV For Anxiety 07/29/20 17:15 08/05/20 17:14 07/30/20 04:05 Mirtazapine (Remeron) 15 mg BEDTIME ORAL 07/22/20 21:00 10/20/20 20:59 07/31/20 20:25 Pantoprazole (Protonix) 40 mg DAILY IVP 07/30/20 09:00 08/29/20 08:59 08/01/20 09:25 Piperacillin Sod/ Tazobactam Sod 3.375 gm/Sodium Chloride 110 ml @ 27.5 mls/hr EVERY 8 HOURS IVPB 07/30/20 12:00 08/04/20 11:59 08/01/20 05:27 Propofol 100 ml @ 0 mls/hr Q12H IV 07/31/20 16:30 08/02/20 16:29 08/01/20 10:30 Sodium Chloride 1,000 ml @ 75 mls/hr [id number] IV 07/29/20 22:30 08/28/20 22:29 08/01/20 02:00 Sodium Phosphate 15 mm/Sodium Chloride 280 ml @ 70.273 mls/ hr ONCE ONCE IVPB 08/01/20 13:30 08/01/20 17:29 Anna Marroquin MD Aug 01, 2020 12:35
--- NOTE | 2020-08-01 12:43 | Cardiac Electrophysiology PN ---
Assessment/Plan Assessment/Plan 1. Troponin elevation. This could be due to stress of respiratory failure in this patient with COVID pneumonia. EF 65% 2. COVID pneumonia and respiratory failure. The patient is on the ventilator with 100% FiO2 and PEEP of 15. Reintubated 07/31/20 3. Hypotension. Continue dopamine 14 mcg as the patient was also bradycardic 4. Respiratory failure, on the ventilator. 5. Diabetes. Further evaluation and management. 6. Sepsis. On Zosyn per Dr. Christian Caraballo. SARANYA RN in ICU Subjective Subjective Self extubated and reintubated in ICU on the Vent with 100% Fio2 and PEEP 15 and Dopamine of 12. HR 70s Objective Last 24 Hour Vital Signs Date Time Temp Pulse Resp B/P (MAP) Pulse Ox O2 Delivery O2 Flow Rate FiO2 08/01/20 11:01 99.9 08/01/20 10:45 85 26 110/50 (70) 96 08/01/20 10:31 115/57 08/01/20 10:30 26 115/52 Mechanical Ventilator 100 08/01/20 10:30 85 25 124/54 (77) 97 08/01/20 10:00 95 24 114/57 (76) 97 08/01/20 10:00 26 114/57 Mechanical Ventilator 100 08/01/20 10:00 26 114/57 Mechanical Ventilator 100 08/01/20 10:00 114/57 08/01/20 09:30 82 26 122/51 (74) 96 08/01/20 09:00 26 122/48 Mechanical Ventilator 100 08/01/20 09:00 26 122/48 Mechanical Ventilator 100 08/01/20 09:00 122/48 08/01/20 09:00 82 24 122/48 (72) 96 08/01/20 08:30 83 25 118/52 (74) 96 08/01/20 08:00 100 08/01/20 08:00 99.8 89 25 112/51 (71) 97 08/01/20 08:00 26 111/52 Mechanical Ventilator 100 08/01/20 08:00 26 111/52 Mechanical Ventilator 100 08/01/20 08:00 111/52 08/01/20 08:00 Mechanical Ventilator 08/01/20 07:15 88 23 105/51 (69) 96 08/01/20 07:00 25 105/51 Mechanical Ventilator 100 08/01/20 07:00 25 105/51 Mechanical Ventilator 100 08/01/20 07:00 105/25 08/01/20 07:00 90 25 108/52 (70) 96 08/01/20 06:55 87 26 100 08/01/20 06:45 94 23 108/49 (68) 96 08/01/20 06:30 99 23 110/52 (71) 96 08/01/20 06:15 107 24 102/50 (67) 95 08/01/20 06:00 109 22 117/56 (76) 95 08/01/20 06:00 22 117/56 Mechanical Ventilator 100 08/01/20 06:00 22 117/56 Mechanical Ventilator 100 08/01/20 06:00 117/56 08/01/20 05:31 22 107/53 Mechanical Ventilator 100 08/01/20 05:30 110 20 107/53 (71) 95 08/01/20 05:00 101.6 108 23 108/52 (70) 96 08/01/20 05:00 24 108/52 Mechanical Ventilator 100 08/01/20 05:00 24 108/52 Mechanical Ventilator 100 08/01/20 05:00 108/52 08/01/20 04:00 100 08/01/20 04:00 107 20 105/60 (75) 96 08/01/20 04:00 24 105/60 Mechanical Ventilator 100 08/01/20 04:00 24 105/60 Mechanical Ventilator 100 08/01/20 04:00 105/60 08/01/20 04:00 Mechanical Ventilator 08/01/20 03:32 108 08/01/20 03:30 108 28 100 08/01/20 03:27 105/50 08/01/20 03:00 23 111/59 Mechanical Ventilator 100 08/01/20 03:00 23 111/59 Mechanical Ventilator 100 08/01/20 03:00 111/59 08/01/20 03:00 105 24 111/59 (76) 96 08/01/20 02:55 24 108/56 Mechanical Ventilator 100 08/01/20 02:00 102 26 112/46 (68) 97 08/01/20 02:00 25 112/46 Mechanical Ventilator 100 08/01/20 02:00 25 112/46 Mechanical Ventilator 100 08/01/20 02:00 112/46 08/01/20 01:00 26 112/50 Mechanical Ventilator 100 08/01/20 01:00 26 112/50 Mechanical Ventilator 100 08/01/20 01:00 112/50 08/01/20 01:00 97 26 112/50 (70) 96 08/01/20 00:06 95 08/01/20 00:00 Mechanical Ventilator 08/01/20 00:00 26 111/54 Mechanical Ventilator 100 08/01/20 00:00 26 111/54 Mechanical Ventilator 100 08/01/20 00:00 111/54 08/01/20 00:00 100.0 94 25 111/54 (73) 97 07/31/20 23:30 93 26 100 07/31/20 23:13 26 119/51 Mechanical Ventilator 100 07/31/20 23:00 88 26 119/51 (73) 99 07/31/20 23:00 26 119/51 Mechanical Ventilator 100 07/31/20 23:00 26 119/51 Mechanical Ventilator 100 07/31/20 23:00 119/51 07/31/20 22:00 84 26 121/50 (73) 98 07/31/20 22:00 26 121/50 Mechanical Ventilator 100 07/31/20 22:00 26 111/50 Mechanical Ventilator 100 07/31/20 22:00 111/50 07/31/20 21:00 76 26 116/44 (68) 99 07/31/20 21:00 26 109/51 Mechanical Ventilator 100 07/31/20 21:00 26 109/51 Mechanical Ventilator 100 07/31/20 20:21 80/38 07/31/20 20:00 100 07/31/20 20:00 Mechanical Ventilator 07/31/20 20:00 99.7 71 26 115/46 (69) 98 20 20:00 26 80/38 Mechanical Ventilator 100 20 20:00 26 80/38 Mechanical Ventilator 100 20 20:00 80/38 07/31/20 19:30 73 07/31/20 19:17 70 26 100 07/31/20 19:00 74 26 114/46 (68) 97 07/31/20 19:00 26 114/46 Mechanical Ventilator 100 07/31/20 19:00 26 114/46 Mechanical Ventilator 100 07/31/20 19:00 114/46 12/22/20 18:30 72 26 101/49 (66) 97 07/31/20 18:00 73 26 110/46 (67) 97 07/31/20 18:00 26 110/46 Mechanical Ventilator 100 07/31/20 18:00 26 110/46 Mechanical Ventilator 100 07/31/20 18:00 110/46 07/31/20 17:37 100.1 07/31/20 17:30 80 26 104/51 (68) 96 07/31/20 17:00 26 105/46 Mechanical Ventilator 100 07/31/20 17:00 26 105/46 Non-Rebreather 100 07/31/20 17:00 105/46 07/31/20 17:00 84 26 105/47 (66) 95 07/31/20 16:30 88 26 106/51 (69) 96 07/31/20 16:27 26 110/46 Mechanical Ventilator 100 07/31/20 16:24 26 110/46 Mechanical Ventilator 100 07/31/20 16:23 26 110/46 Mechanical Ventilator 100 07/31/20 16:07 100 07/31/20 16:00 101.5 95 26 110/46 (67) 96 07/31/20 16:00 91 07/31/20 16:00 Mechanical Ventilator 07/31/20 16:00 110/46 07/31/20 16:00 26 110/46 Mechanical Ventilator 100 07/31/20 16:00 26 110/46 Mechanical Ventilator 100 07/31/20 15:30 94 26 102/49 (66) 95 07/31/20 15:09 97 26 100 07/31/20 15:00 103/50 07/31/20 15:00 26 103/50 Mechanical Ventilator 100 07/31/20 15:00 26 103/50 Mechanical Ventilator 100 07/31/20 15:00 94 26 103/50 (67) 97 07/31/20 14:30 94 26 97/43 (61) 96 07/31/20 14:30 26 89/48 Mechanical Ventilator 100 07/31/20 14:00 92/47 07/31/20 14:00 26 92/47 Mechanical Ventilator 100 07/31/20 14:00 26 92/47 Mechanical Ventilator 100 07/31/20 14:00 96 26 92/47 (62) 96 07/31/20 13:30 112 24 117/60 (79) 94 07/31/20 13:00 98/52 07/31/20 13:00 26 95/51 Mechanical Ventilator 100 07/31/20 13:00 26 98/52 Mechanical Ventilator 100 07/31/20 13:00 127 15 98/52 (67) 91 Intake and Output 07/31/20 08/01/20 19:00 07:00 Intake Total 2309.6106 ml 2087.4056 ml Output Total 685 ml 900 ml Balance 1624.6106 ml 1187.4056 ml Free Water 200 ml IV Total 2009.6106 ml 1827.4056 ml Tube Feeding 60 ml 260 ml Other 40 ml Output Urine Total 685 ml 900 ml Laboratory Tests Test 07/31/20 12:55 07/31/20 16:36 07/31/20 20:24 08/01/20 04:00 POC Whole Blood Glucose 94 MG/DL (74-106) 93 MG/DL (74-106) 91 MG/DL (74-106) White Blood Count 22.1 K/UL (4.8-10.8) *H Red Blood Count 4.30 M/UL (4.70-6.10) L Hemoglobin 12.9 G/DL (14.2-18.0) L Hematocrit 38.3 % (42.0-52.0) L Mean Corpuscular Volume 89 FL (80-99) Mean Corpuscular Hemoglobin 29.9 PG (27.0-31.0) Mean Corpuscular Hemoglobin Concent 33.6 G/DL (32.0-36.0) Red Cell Distribution Width 14.1 % (11.6-14.8) Platelet Count 158 K/UL (150-450) Mean Platelet Volume 7.0 FL (6.5-10.1) Neutrophils (%) (Auto) % (45.0-75.0) Lymphocytes (%) (Auto) % (20.0-45.0) Monocytes (%) (Auto) % (1.0-10.0) Eosinophils (%) (Auto) % (0.0-3.0) Basophils (%) (Auto) % (0.0-2.0) Differential Total Cells Counted 100 Neutrophils % (Manual) 87 % (45-75) H Lymphocytes % (Manual) 6 % (20-45) L Monocytes % (Manual) 5 % (1-10) Eosinophils % (Manual) 2 % (0-3) Basophils % (Manual) 0 % (0-2) Band Neutrophils 0 % (0-8) Platelet Estimate Adequate Platelet Morphology Normal Anisocytosis 1+ Sodium Level 139 MMOL/L (136-145) Potassium Level 4.0 MMOL/L (3.5-5.1) Chloride Level 106 MMOL/L (98-107) Carbon Dioxide Level 28 MMOL/L (21-32) Anion Gap 5 mmol/L (5-15) Blood Urea Nitrogen 17 mg/dL (7-18) Creatinine 0.7 MG/DL (0.55-1.30) Estimat Glomerular Filtration Rate > 60 mL/min (>60) Glucose Level 145 MG/DL (74-106) #H Calcium Level 7.1 MG/DL (8.5-10.1) L Phosphorus Level 2.3 MG/DL (2.5-4.9) L Magnesium Level 2.0 MG/DL (1.8-2.4) Total Bilirubin 0.7 MG/DL (0.2-1.0) Aspartate Amino Transf (AST/SGOT) 20 U/L (15-37) Alanine Aminotransferase (ALT/SGPT) 10 U/L (12-78) L Alkaline Phosphatase 99 U/L (46-116) Total Protein 5.3 G/DL (6.4-8.2) L Albumin 1.2 G/DL (3.4-5.0) L Globulin 4.1 g/dL Albumin/Globulin Ratio 0.3 (1.0-2.7) L Triglycerides Level 235 MG/DL (30-150) H Test 08/01/20 05:29 POC Whole Blood Glucose Pending Objective HEAD AND NECK: Orally intubated. LUNGS: Decreased breath sounds and coarse rhonchi. CARDIOVASCULAR: Regular S1 and S2 with no gallop or murmur. ABDOMEN: Soft. EXTREMITIES: No pitting edema. Jeancarlos Carranza MD Aug 01, 2020 12:43
[2020-08-01] MEDS ORDERED: Sodium Phosphate 15 MM in NS 275 ML IVPB ONE (13:30)
--- NOTE | 2020-08-01 14:00 | NUR ---
NURSE NOTES: Pt remains on Fentanyl 240mcg/hr and Propofol 40mcg/kg/min; RASS -2. Ventilator settings remain the same. O2sat 96% at this time.
[2020-08-01] MEDS: Solu-MEDROL 40mg Inj IVP SCH ×2 (14:41→21:29)
--- NOTE | 2020-08-01 16:00 | NUR ---
NURSE NOTES: Spoke to Dr Monique about the Triglyceride level= 235. Dr Monique does not want to make any medication changes at this time.
--- NOTE | 2020-08-01 17:04 | NUR ---
CASE MANAGEMENT:REVIEW SI;COVID PNEUMONIA. RESPIRATORY FAILURE. 101.6 110 26 100/44 96% ETT/VENT WBC 22.1 AC 26 TV 450 PEEP 15 FIO2 100% BG 145 CA 7.1 ALB 1.2 IS;NA PHOSPHATE IV ONCE SOLU-MEDROL IV Q12 TYLENOL NG Q6 PRN ZOSYN OV Q8 PROTONIX IV QD DOPAMINE GTT IVF NS @ 75 ML/HR FENTANYL GTT IV PROPOFOL IV ICU STATUS DCP;FROM HOME
--- NOTE | 2020-08-01 17:53 | Psychiatric Progress Note ---
Psychiatry Progress Note Psychiatry Progress Note Subjective no new changes calm Medications Current Medications Medications (Trade) Dose Ordered Sig/Dalia Route PRN Reason Start Time Stop Time Status Last Admin Dose Admin Acetaminophen (Tylenol) 500 mg Q6H PRN ORAL Mild Pain (Pain Scale 1-3) 07/21/20 08:15 08/20/20 08:14 08/01/20 05:39 Acetaminophen (Tylenol) 650 mg Q6H PRN NG Temp >100.5 08/01/20 10:30 08/31/20 10:29 08/01/20 10:31 Ascorbic Acid (Vitamin C) 500 mg TWICE A DAY ORAL 07/23/20 09:00 08/22/20 08:59 08/01/20 09:25 Chlorhexidine Gluconate (Hiral-Hex 2%) 1 applic DAILY@1999 TOPIC 07/30/20 20:00 10/28/20 19:59 07/31/20 20:25 Dextrose (Dextrose 50%) 25 ml Q30M PRN IV Hypoglycemia 07/21/20 13:30 10/19/20 13:29 Dextrose (Dextrose 50%) 50 ml Q30M PRN IV Hypoglycemia 07/21/20 13:30 10/19/20 13:29 Dopamine HCl/ Dextrose 250 ml @ 0 mls/hr Q24H IV 07/29/20 23:00 08/01/20 22:58 08/01/20 10:31 Enoxaparin Sodium (Lovenox) 40 mg DAILY SUBQ 07/22/20 09:00 10/20/20 08:59 08/01/20 09:26 Fentanyl Citrate 250 ml @ 0 mls/hr Q24H IV 07/31/20 16:30 08/02/20 16:29 08/01/20 14:37 Guaifenesin (Robitussin) 200 mg Q4H PRN ORAL For Cough 07/25/20 12:30 10/23/20 12:29 07/29/20 09:32 Insulin Aspart (NovoLOG) EVERY 4 HOURS SUBQ 07/31/20 09:00 10/19/20 16:29 08/01/20 14:39 Insulin Detemir (Levemir) 10 units EVERY 12 HOURS SUBQ 08/01/20 09:00 10/19/20 20:59 08/01/20 09:51 Lorazepam (Ativan 2mg/ml 1ml) 1 mg Q4H PRN IV For Anxiety 07/29/20 17:15 08/05/20 17:14 07/30/20 04:05 Methylprednisolone Sodium Succinate (Solu-MEDROL) 40 mg EVERY 12 HOURS IVP 08/01/20 12:45 10/30/20 12:44 08/01/20 14:41 Mirtazapine (Remeron) 15 mg BEDTIME ORAL 07/22/20 21:00 10/20/20 20:59 07/31/20 20:25 Pantoprazole (Protonix) 40 mg DAILY IVP 07/30/20 09:00 08/29/20 08:59 08/01/20 09:25 Piperacillin Sod/ Tazobactam Sod 3.375 gm/Sodium Chloride 110 ml @ 27.5 mls/hr EVERY 8 HOURS IVPB 07/30/20 12:00 08/04/20 11:59 08/01/20 14:39 Propofol 100 ml @ 0 mls/hr Q12H IV 07/31/20 16:30 08/02/20 16:29 08/01/20 16:15 Sodium Chloride 1,000 ml @ 75 mls/hr [id number] IV 07/29/20 22:30 08/28/20 22:29 08/01/20 15:20 Neurological/Psychiatric: Reports: anxiety, depressed, emotional problems Allergies: Coded Allergies: No Known Allergies (Unverified , 07/21/20) Objective Data Height (Feet): 5 Height (Inches): 6.00 Weight (Pounds): 172 General Appearance: no apparent distress, alert, alert oriented x3 Additional Comments: alert, oriented to self, place, situation. Mood is anxious. Affect is blunted, congruent with mood. Thought process is concrete. Thought content, no suicidal or homicidal ideation. Cognition is intact. Insight and judgment fair. Assessment/Plan [place] I: ASSESSMENT: [place] I Anxiety disorder. [place] II Deferred. [place] III As above. [place] IV Low. [place] V 20 PLAN: 1. We will continue current medication. 2. Provide the patient with reality orientation and supportive therapy. Status: progressing Status Narrative ASSESSMENT: [place] I Anxiety disorder. [place] II Deferred. [place] III As above. [place] IV Low. [place] V 20 PLAN: 1. We will continue current medication. 2. Provide the patient with reality orientation and supportive therapy. Assessment/Plan: ASSESSMENT: [place] I Anxiety disorder. [place] II Deferred. [place] III As above. [place] IV Low. [place] V 20 PLAN: 1. We will continue current medication. 2. Provide the patient with reality orientation and supportive therapy. Ron Bridges MD Aug 01, 2020 17:53
--- NOTE | 2020-08-01 18:00 | NUR ---
NURSE NOTES: Pt fully cleaned and linens changed. No BM noted at this time. Pt turned and repositioned for comfort. No distress noted.
--- NOTE | 2020-08-01 20:00 | NUR ---
NURSE NOTES: Patient is calm and sedated with a RASS score of -2. Awakens to touch. Infusions of Propofol @ 40mcg/kg/min, Fentanyl @ 240mcg/hr and Dopamine @ 12mcg/kg/min continue. Oral care done.
[2020-08-01] MEDS: Dyna-Hex 2% Top Sol 2oz TOPIC SCH (20:23)
--- NOTE | 2020-08-01 20:34 | General Progress Note ---
Subjective ROS Limited/Unobtainable: Yes Allergies: Coded Allergies: No Known Allergies (Unverified , 07/21/20) Objective Last 24 Hour Vital Signs Date Time Temp Pulse Resp B/P (MAP) Pulse Ox O2 Delivery O2 Flow Rate FiO2 08/01/20 20:00 98.5 99 24 107/54 (71) 94 08/01/20 20:00 Mechanical Ventilator 08/01/20 20:00 100 08/01/20 20:00 26 107/54 Mechanical Ventilator 100 08/01/20 20:00 26 107/54 Mechanical Ventilator 100 08/01/20 20:00 107/54 08/01/20 20:00 99 08/01/20 19:00 26 108/53 Mechanical Ventilator 100 08/01/20 19:00 26 108/53 Mechanical Ventilator 100 08/01/20 19:00 108/53 08/01/20 19:00 98 23 115/59 (77) 95 08/01/20 18:30 97 28 100 08/01/20 18:30 101 25 113/52 (72) 96 08/01/20 18:00 103 26 113/54 (73) 97 08/01/20 18:00 26 110/53 Mechanical Ventilator 100 08/01/20 18:00 26 107/53 Mechanical Ventilator 100 08/01/20 18:00 107/53 08/01/20 17:30 108 21 114/52 (72) 96 08/01/20 17:00 23 134/58 Mechanical Ventilator 100 08/01/20 17:00 23 134/58 Mechanical Ventilator 100 08/01/20 17:00 134/58 08/01/20 17:00 158 17 101/61 (74) 87 08/01/20 16:30 84 25 124/58 (80) 95 08/01/20 16:15 26 128/50 Mechanical Ventilator 100 08/01/20 16:00 98.3 86 26 128/50 (76) 95 08/01/20 16:00 Mechanical Ventilator 08/01/20 16:00 100 08/01/20 16:00 26 128/50 Mechanical Ventilator 100 08/01/20 16:00 26 128/50 Mechanical Ventilator 100 08/01/20 16:00 128/50 08/01/20 15:30 84 26 127/50 (75) 96 08/01/20 15:00 26 119/49 Mechanical Ventilator 100 08/01/20 15:00 26 119/49 Mechanical Ventilator 26 08/01/20 15:00 119/49 08/01/20 15:00 81 26 123/50 (74) 96 08/01/20 14:56 90 30 100 08/01/20 14:37 26 100/44 Mechanical Ventilator 100 08/01/20 14:30 86 24 100/44 (62) 96 08/01/20 14:00 86 08/01/20 14:00 26 108/48 Mechanical Ventilator 100 08/01/20 14:00 26 108/48 Mechanical Ventilator 100 08/01/20 14:00 108/48 08/01/20 14:00 80 26 118/48 (71) 97 08/01/20 13:30 87 25 116/50 (72) 98 08/01/20 13:00 26 114/50 Mechanical Ventilator 100 08/01/20 13:00 26 114/50 Mechanical Ventilator 100 08/01/20 13:00 114/50 08/01/20 13:00 76 26 111/50 (70) 98 08/01/20 12:30 77 26 114/49 (70) 98 08/01/20 12:00 Mechanical Ventilator 08/01/20 12:00 26 111/48 Mechanical Ventilator 100 08/01/20 12:00 26 111/48 Mechanical Ventilator 100 08/01/20 12:00 111/48 08/01/20 12:00 79 08/01/20 12:00 98.9 79 26 117/50 (72) 98 08/01/20 12:00 100 08/01/20 11:48 76 24 100 08/01/20 11:30 82 26 116/45 (68) 97 08/01/20 11:01 99.9 08/01/20 11:00 26 126/51 Mechanical Ventilator 100 08/01/20 11:00 26 126/51 Mechanical Ventilator 100 08/01/20 11:00 126/51 08/01/20 11:00 82 26 123/51 (75) 97 08/01/20 10:45 85 26 110/50 (70) 96 08/01/20 10:31 115/57 08/01/20 10:30 26 115/52 Mechanical Ventilator 100 08/01/20 10:30 85 25 124/54 (77) 97 08/01/20 10:00 95 24 114/57 (76) 97 08/01/20 10:00 26 114/57 Mechanical Ventilator 100 08/01/20 10:00 26 114/57 Mechanical Ventilator 100 08/01/20 10:00 114/57 08/01/20 09:30 82 26 122/51 (74) 96 08/01/20 09:00 26 122/48 Mechanical Ventilator 100 08/01/20 09:00 26 122/48 Mechanical Ventilator 100 08/01/20 09:00 122/48 08/01/20 09:00 82 24 122/48 (72) 96 08/01/20 08:30 83 25 118/52 (74) 96 08/01/20 08:00 100 08/01/20 08:00 99.8 89 25 112/51 (71) 97 08/01/20 08:00 26 111/52 Mechanical Ventilator 100 08/01/20 08:00 26 111/52 Mechanical Ventilator 100 08/01/20 08:00 111/52 08/01/20 08:00 89 08/01/20 08:00 Mechanical Ventilator 08/01/20 07:15 88 23 105/51 (69) 96 08/01/20 07:00 25 105/51 Mechanical Ventilator 100 08/01/20 07:00 25 105/51 Mechanical Ventilator 100 08/01/20 07:00 105/25 08/01/20 07:00 90 25 108/52 (70) 96 08/01/20 06:55 87 26 100 08/01/20 06:45 94 23 108/49 (68) 96 08/01/20 06:30 99 23 110/52 (71) 96 08/01/20 06:15 107 24 102/50 (67) 95 08/01/20 06:00 109 22 117/56 (76) 95 08/01/20 06:00 22 117/56 Mechanical Ventilator 100 08/01/20 06:00 22 117/56 Mechanical Ventilator 100 08/01/20 06:00 117/56 08/01/20 05:31 22 107/53 Mechanical Ventilator 100 08/01/20 05:30 110 20 107/53 (71) 95 08/01/20 05:00 101.6 108 23 108/52 (70) 96 08/01/20 05:00 24 108/52 Mechanical Ventilator 100 08/01/20 05:00 24 108/52 Mechanical Ventilator 100 08/01/20 05:00 108/52 08/01/20 04:00 100 08/01/20 04:00 107 20 105/60 (75) 96 08/01/20 04:00 24 105/60 Mechanical Ventilator 100 08/01/20 04:00 24 105/60 Mechanical Ventilator 100 08/01/20 04:00 105/60 08/01/20 04:00 Mechanical Ventilator 08/01/20 03:32 108 08/01/20 03:30 108 28 100 08/01/20 03:27 105/50 08/01/20 03:00 23 111/59 Mechanical Ventilator 100 08/01/20 03:00 23 111/59 Mechanical Ventilator 100 08/01/20 03:00 111/59 08/01/20 03:00 105 24 111/59 (76) 96 08/01/20 02:55 24 108/56 Mechanical Ventilator 100 08/01/20 02:00 102 26 112/46 (68) 97 08/01/20 02:00 25 112/46 Mechanical Ventilator 100 08/01/20 02:00 25 112/46 Mechanical Ventilator 100 08/01/20 02:00 112/46 08/01/20 01:00 26 112/50 Mechanical Ventilator 100 08/01/20 01:00 26 112/50 Mechanical Ventilator 100 08/01/20 01:00 112/50 08/01/20 01:00 97 26 112/50 (70) 96 08/01/20 00:06 95 08/01/20 00:00 Mechanical Ventilator 08/01/20 00:00 26 111/54 Mechanical Ventilator 100 08/01/20 00:00 26 111/54 Mechanical Ventilator 100 08/01/20 00:00 111/54 08/01/20 00:00 100.0 94 25 111/54 (73) 97 07/31/20 23:30 93 26 100 07/31/20 23:13 26 119/51 Mechanical Ventilator 100 07/31/20 23:00 88 26 119/51 (73) 99 20 23:00 26 119/51 Mechanical Ventilator 100 07/31/20 23:00 26 119/51 Mechanical Ventilator 100 07/31/20 23:00 119/51 07/31/20 22:00 84 26 121/50 (73) 98 07/31/20 22:00 26 121/50 Mechanical Ventilator 100 07/31/20 22:00 26 111/50 Mechanical Ventilator 100 07/31/20 22:00 111/50 07/31/20 21:00 76 26 116/44 (68) 99 07/31/20 21:00 26 109/51 Mechanical Ventilator 100 07/31/20 21:00 26 109/51 Mechanical Ventilator 100 Intake and Output0 07/31/20 08/01/20 19:00 07:00 Intake Total 2309.6106 ml 2087.4056 ml Output Total 685 ml 900 ml Balance 1624.6106 ml 1187.4056 ml Free Water 200 ml IV Total 2009.6106 ml 1827.4056 ml Tube Feeding 60 ml 260 ml Other 40 ml Output Urine Total 685 ml 900 ml Laboratory Tests 08/01/20 04:00: White Blood Count 22.1*H, Red Blood Count 4.30L, Hemoglobin 12.9L, Hematocrit 38.3L, Mean Corpuscular Volume 89, Mean Corpuscular Hemoglobin 29.9, Mean Corpuscular Hemoglobin Concent 33.6, Red Cell Distribution Width 14.1, Platelet Count 158, Mean Platelet Volume 7.0, Neutrophils (%) (Auto) , Lymphocytes (%) (Auto) , Monocytes (%) (Auto) , Eosinophils (%) (Auto) , Basophils (%) (Auto) , Differential Total Cells Counted 100, Neutrophils % (Manual) 87H, Lymphocytes % (Manual) 6L, Monocytes % (Manual) 5, Eosinophils % (Manual) 2, Basophils % (Manual) 0, Band Neutrophils 0, Platelet Estimate Adequate, Platelet Morphology Normal, Anisocytosis 1+, Sodium Level 139, Potassium Level 4.0, Chloride Level 106, Carbon Dioxide Level 28, Anion Gap 5, Blood Urea Nitrogen 17, Creatinine 0.7, Estimat Glomerular Filtration Rate > 60, Glucose Level 145#H, Calcium Level 7.1L, Phosphorus Level 2.3L, Magnesium Level 2.0, Total Bilirubin 0.7, Aspartate Amino Transf (AST/SGOT) 20, Alanine Aminotransferase (ALT/SGPT) 10L, Alkaline Phosphatase 99, Total Protein 5.3L, Albumin 1.2L, Globulin 4.1, Albumin/Globulin Ratio 0.3L, Triglycerides Level 235H 12/23/20 05:29: POC Whole Blood Glucose [Pending] Height (Feet): 5 Height (Inches): 6.00 Weight (Pounds): 172 Assessment/Plan Problem List: (1) Acute respiratory failure with hypoxia ICD Codes: J96.01 - Acute respiratory failure with hypoxia; J12.89 - Other viral pneumonia SNOMED: 34269096, 559370872 (2) Pneumonia due to COVID-19 virus ICD Codes: U07.1 - COVID-19; J12.89 - Other viral pneumonia SNOMED: 529102432290460645 (3) Hyperglycemia due to type 2 diabetes mellitus ICD Codes: E11.65 - Type 2 diabetes mellitus with hyperglycemia; J12.89 - Other viral pneumonia SNOMED: 048295124948058, [id number] Qualifiers: Qualified Codes: E11.65 - Type 2 diabetes mellitus with hyperglycemia Status: progressing Assessment/Plan: covid positive pna intubated resp failure no change poor prognosis niddm Milagro Miller MD Aug 01, 2020 20:34
--- NOTE | 2020-08-01 22:00 | NUR ---
NURSE NOTES: Central line dressing changed. Pt turned and repositioned for comfort. No distress noted. O2sat 97%. Ventilator settings remain the same. Vital AF continues to run @ 35mL/hr via OGT.
--- NOTE | 2020-08-01 23:15 | NUR ---
NURSE NOTES: Received patient from CHARMAINE Mera. Patient is observed resting in bed and remains sedated with a RASS score of -2 noted. FLACC score of 0 noted upon assessment. Pt is currently orally intubated et tube size 7.5 noted to be 23 @ lip and pt appears to be tolerating current vent settings well with an O2 saturation of of 96% at this time. Vent settings as follows: AC 26 TV 450 FiO2 100% PEEP 15. Bilateral lower lobe breath sounds noted to be diminished upon auscultation with rhonchi noted in bilateral upper lobes. Pt noted to be SR on tele monitor with a HR of 78, BP remains stable at this time. L FA 20g IV Catheter and R Femoral TLC noted which remain asymptomatic, intact and patent. Central line dressing remains clean, dry and intact. NS is currently infusing at 75mL/hr as ordered, Fentanyl infusing at 240mcg/hr, Propofol infusing at 40 mcg/kg/min and Dopamine infusing at 8mcg/kg/min. Current drips noted to be therapeutic at this time. Active bowel sounds noted in all four quadrants; abdomen remains flat, soft and nontender. OG tube noted which remains secured and patent with Vital AF currently infusing at 35mL/hr as ordered with no residual noted. Miranda catheter noted which continues to drain urine by gravity. Diagnostics reviewed at bedside. Skin remains intact. Bilateral soft wrist restraints remain in place for pt safety. Pt noted to be attempting to pull medical devices despite pt education. CMS remains intact. Will continue to assess pt for removal criteria. Fall, Aspiration and Skin precautions observed. Pt repositioned for comfort and safety. Pt remains resting in bed; Bed remains in the lowest position with the safety wheels engaged, call light within reach, side rails up x3 and bed alarm activated. Will continue plan of care. Will continue to monitor.
--- NOTE | 2020-08-01 23:26 | NUR ---
NURSE HAND-OFF REPORT: Latest Vital Signs: Temperature 98.5 , Pulse 95 , B/P 119 /56 , Respiratory Rate 30 , O2 SAT 96 , Mechanical Ventilator, FiO2 100% . Vital Sign Comment: EKG Rhythm: Sinus Rhythm Rhythm change?: N MD Notified?: - MD Response: Latest Van Fall Score: 50 Fall Risk: High Risk Safety Measures: Call light Within Reach, Bed Alarm Zone 1, Side Rails Side Rails x3, Bed position Low and Locked. Fall Precautions: Yellow Socks Door Sign Patient Fall Education Report given to CHARMAINE Teixeira.
[2020-08-02] VITALS (44 sets, daily range): BP systolic 103–160; BP diastolic 46–73
[2020-08-02] MEDS: NovoLOG Insulin Flexpen SUBQ SCH ×6 (00:02→20:53)
[2020-08-02] MEDS: fentaNYL 2500mcg/NS 250ml 250 ML IV SCH ×5 (00:46→20:35)
[2020-08-02] MEDS: propofoL 1,000mg/100ml 100 ML IV SCH ×5 (00:47→20:33)
--- NOTE | 2020-08-02 00:50 | NUR ---
NURSE NOTES: Fentanyl 6.8mL wasted per COVID protocol, witnessed by CHARMAINE Webb Propofol 39.46mL waste, 23mL of waste used to prime tubing. Wasted per COVID protocol and witnessed by CHARMAINE Webb
--- NOTE | 2020-08-02 01:00 | NUR ---
NURSE NOTES: Pt provided with a bed bath, oral care and linen change. Pt appears to continue to tolerate current vent settings well and remains free from s/sx of acute respiratory distress. Physical status remains consistent with previous assessment. Fentanyl, Propofol and Dopamine continue to infuse without incident, no change in rate. RASS score of -2 noted with a FLACC score of 0 noted. Pt remains continues to attempt to pull medical devices despite restraints, bilateral soft wrist restraints remain in place for pt safety. Will continue to provide education, reorient patient and assess for removal criteria. Fall, Aspiration and Skin precautions observed. Pt remains resting in bed; Bed remains in the lowest position with the safety wheels engaged, call light within reach, side rails up x3 and bed alarm activated. Will continue plan of care. Will continue to monitor.
--- NOTE | 2020-08-02 03:00 | NUR ---
NURSE NOTES: Bedside physical assessment performed. Pt appears to continue to tolerate current vent settings well and remains free from s/sx of acute respiratory distress. BP remains stable. Physical status remains consistent with previous assessment. Fentanyl, Propofol and Dopamine continue to infuse without incident, no change in rate. RASS score of -2 noted with a FLACC score of 0 noted. Will continue to assess pt for restraint removal criteria. No adverse events. Fall, Aspiration and Skin precautions observed. Pt remains resting in bed; Bed remains in the lowest position with the safety wheels engaged, call light within reach, side rails up x3 and bed alarm activated. Will continue plan of care. Will continue to monitor.
[2020-08-02] MEDS: DOPamine 400mg/250ml 250 ML IV SCH ×3 (04:00→17:35)
[2020-08-02] MEDS: Piperacillin/Tazobactam 3.375 GM in NS 110 ML IVPB SCH ×3 (05:22→22:20)
[2020-08-02] MEDS: LORazepam Inj 2mg/ml 1ml IV PRN (05:58)
--- NOTE | 2020-08-02 06:16 | General Progress Note ---
Subjective ROS Limited/Unobtainable: Yes Allergies: Coded Allergies: No Known Allergies (Unverified , 07/21/20) Subjective events noted interval notes reviewed glucose values elevated intubated in ICU Item Value Date Time Bedside Blood Glucose 296 mg/dl H 08/02/20 0430 Bedside Blood Glucose 290 mg/dl H 08/02/20 0002 Bedside Blood Glucose 330 mg/dl H 08/01/20 2200 Bedside Blood Glucose 332 mg/dl H 08/01/20 1820 Bedside Blood Glucose 282 mg/dl H 08/01/20 1439 Bedside Blood Glucose 237 mg/dl H 08/01/20 0952 Bedside Blood Glucose 171 mg/dl H 08/01/20 0530 Objective Last 24 Hour Vital Signs Date Time Temp Pulse Resp B/P (MAP) Pulse Ox O2 Delivery O2 Flow Rate FiO2 08/02/20 05:58 102 29 151/62 94 08/02/20 05:11 25 127/48 Mechanical Ventilator 100 08/02/20 05:00 83 21 117/46 (69) 96 08/02/20 05:00 117/46 08/02/20 05:00 24 117/46 Mechanical Ventilator 100 08/02/20 05:00 25 117/46 Mechanical Ventilator 100 08/02/20 04:30 84 25 127/48 (74) 96 08/02/20 04:00 100 08/02/20 04:00 122/51 08/02/20 04:00 24 126/56 Mechanical Ventilator 100 08/02/20 04:00 24 126/56 Mechanical Ventilator 100 08/02/20 04:00 97.7 77 25 126/56 (79) 96 08/02/20 04:00 Mechanical Ventilator 08/02/20 03:32 78 08/02/20 03:30 78 23 124/53 (76) 96 08/02/20 03:21 78 28 100 08/02/20 03:00 130/55 08/02/20 03:00 24 130/55 Mechanical Ventilator 100 08/02/20 03:00 24 130/55 Mechanical Ventilator 100 08/02/20 03:00 77 25 130/55 (80) 97 08/02/20 02:30 79 24 120/53 (75) 97 08/02/20 02:00 78 24 122/54 (76) 96 08/02/20 02:00 122/54 08/02/20 02:00 25 122/54 Mechanical Ventilator 100 08/02/20 02:00 25 122/54 Mechanical Ventilator 100 08/02/20 01:30 77 24 123/54 (77) 97 08/02/20 01:00 83 22 118/52 (74) 96 08/02/20 01:00 118/52 08/02/20 01:00 24 118/52 Mechanical Ventilator 100 08/02/20 01:00 24 118/52 Mechanical Ventilator 100 08/02/20 00:47 24 122/54 Mechanical Ventilator 100 08/02/20 00:46 24 122/54 Mechanical Ventilator 100 08/02/20 00:30 82 24 123/54 (77) 97 08/02/20 00:00 98.9 92 24 122/54 (76) 96 08/02/20 00:00 Mechanical Ventilator 08/02/20 00:00 118/52 08/02/20 00:00 24 122/54 Mechanical Ventilator 100 08/02/20 00:00 24 122/54 Mechanical Ventilator 100 08/02/20 00:00 100 08/01/20 23:40 90 08/01/20 23:30 89 23 114/53 (73) 96 08/01/20 23:23 95 30 100 08/01/20 23:00 93 23 119/56 (77) 96 08/01/20 23:00 22 119/56 Mechanical Ventilator 100 08/01/20 23:00 22 119/56 Mechanical Ventilator 100 08/01/20 23:00 119/56 08/01/20 22:30 96 24 108/54 (72) 96 08/01/20 22:00 95 24 114/52 (72) 96 08/01/20 22:00 26 114/52 Mechanical Ventilator 100 08/01/20 22:00 26 114/52 Mechanical Ventilator 100 08/01/20 22:00 114/52 08/01/20 21:32 26 112/54 Mechanical Ventilator 100 08/01/20 21:30 100 25 112/54 (73) 95 08/01/20 21:00 26 103/55 Mechanical Ventilator 100 08/01/20 21:00 26 103/55 Mechanical Ventilator 100 08/01/20 21:00 103/55 08/01/20 21:00 104 24 103/55 (71) 95 08/01/20 20:30 99 24 117/54 (75) 95 08/01/20 20:00 98.5 99 24 107/54 (71) 94 08/01/20 20:00 Mechanical Ventilator 08/01/20 20:00 100 08/01/20 20:00 26 107/54 Mechanical Ventilator 100 08/01/20 20:00 26 107/54 Mechanical Ventilator 100 08/01/20 20:00 107/54 08/01/20 20:00 99 08/01/20 19:00 26 108/53 Mechanical Ventilator 100 08/01/20 19:00 26 108/53 Mechanical Ventilator 100 08/01/20 19:00 108/53 08/01/20 19:00 98 23 115/59 (77) 95 08/01/20 18:30 97 28 100 08/01/20 18:30 101 25 113/52 (72) 96 08/01/20 18:00 103 26 113/54 (73) 97 08/01/20 18:00 26 110/53 Mechanical Ventilator 100 08/01/20 18:00 26 107/53 Mechanical Ventilator 100 08/01/20 18:00 107/53 08/01/20 17:30 108 21 114/52 (72) 96 08/01/20 17:00 23 134/58 Mechanical Ventilator 100 08/01/20 17:00 23 134/58 Mechanical Ventilator 100 08/01/20 17:00 134/58 08/01/20 17:00 158 17 101/61 (74) 87 08/01/20 16:30 84 25 124/58 (80) 95 08/01/20 16:15 26 128/50 Mechanical Ventilator 100 08/01/20 16:00 98.3 86 26 128/50 (76) 95 08/01/20 16:00 Mechanical Ventilator 08/01/20 16:00 100 08/01/20 16:00 26 128/50 Mechanical Ventilator 100 08/01/20 16:00 26 128/50 Mechanical Ventilator 100 08/01/20 16:00 128/50 08/01/20 15:30 84 26 127/50 (75) 96 08/01/20 15:00 26 119/49 Mechanical Ventilator 100 08/01/20 15:00 26 119/49 Mechanical Ventilator 26 08/01/20 15:00 119/49 08/01/20 15:00 81 26 123/50 (74) 96 08/01/20 14:56 90 30 100 08/01/20 14:37 26 100/44 Mechanical Ventilator 100 08/01/20 14:30 86 24 100/44 (62) 96 08/01/20 14:00 86 08/01/20 14:00 26 108/48 Mechanical Ventilator 100 08/01/20 14:00 26 108/48 Mechanical Ventilator 100 08/01/20 14:00 108/48 08/01/20 14:00 80 26 118/48 (71) 97 08/01/20 13:30 87 25 116/50 (72) 98 08/01/20 13:00 26 114/50 Mechanical Ventilator 100 08/01/20 13:00 26 114/50 Mechanical Ventilator 100 08/01/20 13:00 114/50 08/01/20 13:00 76 26 111/50 (70) 98 08/01/20 12:30 77 26 114/49 (70) 98 08/01/20 12:00 Mechanical Ventilator 08/01/20 12:00 26 111/48 Mechanical Ventilator 100 08/01/20 12:00 26 111/48 Mechanical Ventilator 100 08/01/20 12:00 111/48 08/01/20 12:00 79 08/01/20 12:00 98.9 79 26 117/50 (72) 98 08/01/20 12:00 100 08/01/20 11:48 76 24 100 08/01/20 11:30 82 26 116/45 (68) 97 08/01/20 11:01 99.9 08/01/20 11:00 26 126/51 Mechanical Ventilator 100 08/01/20 11:00 26 126/51 Mechanical Ventilator 100 08/01/20 11:00 126/51 08/01/20 11:00 82 26 123/51 (75) 97 08/01/20 10:45 85 26 110/50 (70) 96 08/01/20 10:31 115/57 08/01/20 10:30 26 115/52 Mechanical Ventilator 100 08/01/20 10:30 85 25 124/54 (77) 97 08/01/20 10:00 95 24 114/57 (76) 97 08/01/20 10:00 26 114/57 Mechanical Ventilator 100 08/01/20 10:00 26 114/57 Mechanical Ventilator 100 08/01/20 10:00 114/57 08/01/20 09:30 82 26 122/51 (74) 96 08/01/20 09:00 26 122/48 Mechanical Ventilator 100 08/01/20 09:00 26 122/48 Mechanical Ventilator 100 08/01/20 09:00 122/48 08/01/20 09:00 82 24 122/48 (72) 96 08/01/20 08:30 83 25 118/52 (74) 96 08/01/20 08:00 100 08/01/20 08:00 99.8 89 25 112/51 (71) 97 08/01/20 08:00 26 111/52 Mechanical Ventilator 100 08/01/20 08:00 26 111/52 Mechanical Ventilator 100 08/01/20 08:00 111/52 08/01/20 08:00 89 08/01/20 08:00 Mechanical Ventilator 08/01/20 07:15 88 23 105/51 (69) 96 08/01/20 07:00 25 105/51 Mechanical Ventilator 100 08/01/20 07:00 25 105/51 Mechanical Ventilator 100 08/01/20 07:00 105/25 08/01/20 07:00 90 25 108/52 (70) 96 08/01/20 06:55 87 26 100 08/01/20 06:45 94 23 108/49 (68) 96 08/01/20 06:30 99 23 110/52 (71) 96 Intake and Output 08/01/20 08/02/20 19:00 07:00 Intake Total 2730.830 ml 2024.913 ml Output Total 880 ml 800 ml Balance 1850.830 ml 1224.913 ml Free Water 30 ml IV Total 2070.830 ml 1489.913 ml Tube Feeding 420 ml 385 ml Other 240 ml 120 ml Output Urine Total 880 ml 800 ml Laboratory Tests 08/01/20 23:59: POC Whole Blood Glucose [Pending] 08/02/20 04:04: POC Whole Blood Glucose [Pending] 08/02/20 04:30: White Blood Count [Pending], Red Blood Count [Pending], Hemoglobin [Pending], Hematocrit [Pending], Mean Corpuscular Volume [Pending], Mean Corpuscular Hemoglobin [Pending], Mean Corpuscular Hemoglobin Concent [Pending], Red Cell Distribution Width [Pending], Platelet Count [Pending], Mean Platelet Volume [Pending], Neutrophils (%) (Auto) [Pending], Lymphocytes (%) (Auto) [Pending], Monocytes (%) (Auto) [Pending], Eosinophils (%) (Auto) [Pending], Basophils (%) (Auto) [Pending], Sodium Level [Pending], Potassium Level [Pending], Chloride Level [Pending], Carbon Dioxide Level [Pending], Blood Urea Nitrogen [Pending], Creatinine [Pending], Estimat Glomerular Filtration Rate [Pending], Glucose Level [Pending], Calcium Level [Pending], Phosphorus Level [Pending], Magnesium Level [Pending], Total Bilirubin [Pending], Aspartate Amino Transf (AST/SGOT) [Pending], Alanine Aminotransferase (ALT/SGPT) [Pending], Alkaline Phosphatase [Pending], C-Reactive Protein, Quantitative [Pending], Pro-B-Type Natriuretic Peptide [Pending], Total Protein [Pending], Albumin [Pending], Globulin [Pendin g] Height (Feet): 5 Height (Inches): 6.00 Weight (Pounds): 172 Objective Current Medications Medications (Trade) Dose Ordered Sig/Dalia Route PRN Reason Start Time Stop Time Status Last Admin Dose Admin Acetaminophen (Tylenol) 500 mg Q6H PRN ORAL Mild Pain (Pain Scale 1-3) 07/21/20 08:15 08/20/20 08:14 08/01/20 05:39 Acetaminophen (Tylenol) 650 mg Q6H PRN NG Temp >100.5 08/01/20 10:30 08/31/20 10:29 08/01/20 10:31 Ascorbic Acid (Vitamin C) 500 mg TWICE A DAY ORAL 07/23/20 09:00 08/22/20 08:59 08/01/20 17:58 Chlorhexidine Gluconate (Hiral-Hex 2%) 1 applic DAILY@1999 TOPIC 07/30/20 20:00 10/28/20 19:59 08/01/20 20:23 Dextrose (Dextrose 50%) 25 ml Q30M PRN IV Hypoglycemia 07/21/20 13:30 10/19/20 13:29 Dextrose (Dextrose 50%) 50 ml Q30M PRN IV Hypoglycemia 07/21/20 13:30 10/19/20 13:29 Dopamine HCl/ Dextrose 250 ml @ 0 mls/hr Q24H IV 08/02/20 00:00 08/05/20 01:29 08/02/20 04:00 Enoxaparin Sodium (Lovenox) 40 mg DAILY SUBQ 07/22/20 09:00 10/20/20 08:59 08/01/20 09:26 Fentanyl Citrate 250 ml @ 0 mls/hr Q24H IV 07/31/20 16:30 08/02/20 16:29 08/02/20 00:46 Guaifenesin (Robitussin) 200 mg Q4H PRN ORAL For Cough 07/25/20 12:30 10/23/20 12:29 07/29/20 09:32 Insulin Aspart (NovoLOG) EVERY 4 HOURS SUBQ 07/31/20 09:00 10/19/20 16:29 08/02/20 04:30 Insulin Detemir (Levemir) 10 units EVERY 12 HOURS SUBQ 08/01/20 09:00 10/19/20 20:59 08/01/20 22:00 Lorazepam (Ativan 2mg/ml 1ml) 1 mg Q4H PRN IV For Anxiety 07/29/20 17:15 08/05/20 17:14 08/02/20 05:58 Methylprednisolone Sodium Succinate (Solu-MEDROL) 40 mg EVERY 12 HOURS IVP 08/01/20 12:45 10/30/20 12:44 08/01/20 21:29 Mirtazapine (Remeron) 15 mg BEDTIME ORAL 07/22/20 21:00 10/20/20 20:59 08/01/20 21:29 Pantoprazole (Protonix) 40 mg DAILY IVP 07/30/20 09:00 08/29/20 08:59 08/01/20 09:25 Piperacillin Sod/ Tazobactam Sod 3.375 gm/Sodium Chloride 110 ml @ 27.5 mls/hr EVERY 8 HOURS IVPB 07/30/20 12:00 08/04/20 11:59 08/02/20 05:22 Propofol 100 ml @ 0 mls/hr Q12H IV 07/31/20 16:30 08/02/20 16:29 08/02/20 05:11 Sodium Chloride 1,000 ml @ 75 mls/hr [id number] IV 07/29/20 22:30 08/28/20 22:29 08/02/20 05:22 Assessment/Plan Problem List: (1) Pneumonia due to COVID-19 virus ICD Codes: U07.1 - COVID-19; J12.89 - Other viral pneumonia SNOMED: [id number] (2) Hyperglycemia due to type 2 diabetes mellitus ICD Codes: E11.65 - Type 2 diabetes mellitus with hyperglycemia; J12.89 - Other viral pneumonia SNOMED: 720953776869340, 34957080 Qualifiers: Qualified Codes: E11.65 - Type 2 diabetes mellitus with hyperglycemia (3) Acute respiratory failure with hypoxia ICD Codes: J96.01 - Acute respiratory failure with hypoxia; J12.89 - Other viral pneumonia SNOMED: 04445846, [id number] Status: progressing Assessment/Plan: increase Levemir to 20 units bid continue glucose monitoring and Novolog coverage every 4 hours Sandor Briceño MD Aug 02, 2020 06:16
--- NOTE | 2020-08-02 06:23 | NUR ---
NURSE NOTES: Bedside physical assessment performed. Pt noted to be anxious and agitated, PRN Ativan administered as ordered without incident. No adverse effects noted. Fentanyl and Propofol continue to infuse without incident, no change in rate. RASS score of -2 noted with a FLACC score of 0 noted. Dopamine titrated to 6mcg/kg/min due to elevated SBP. Will continue to titrate per pt tolerance. Will continue to assess pt for restraint removal criteria, pt continues to attempt to pull at medical devices when aroused. Fall, Aspiration and Skin precautions observed. Pt remains resting in bed; Bed remains in the lowest position with the safety wheels engaged, call light within reach, side rails up x3 and bed alarm activated. Will continue plan of care. Will continue to monitor.
[2020-08-02 06:39] LABS: ALANINE AMINOTRANSFERASE 13 U/L (12-78); ALBUMIN 1.1 G/DL (3.4-5.0); ALBUMIN/GLOBULIN RATIO 0.2 (1.0-2.7); ALKALINE PHOSPHATASE 116 U/L (46-116); ANION GAP 1 mmol/L (5-15); ASPARTATE AMINO TRANSFERASE 20 U/L (15-37); BILIRUBIN,TOTAL 0.4 MG/DL (0.2-1.0); BLOOD UREA NITROGEN 17 mg/dL (7-18); CALCIUM 7.4 MG/DL (8.5-10.1); CARBON DIOXIDE 30 MMOL/L (21-32); CHLORIDE 105 MMOL/L (98-107); CREATININE 0.7 MG/DL (0.55-1.30); PHOSPHORUS 2.2 MG/DL (2.5-4.9); POTASSIUM 4.4 MMOL/L (3.5-5.1); SODIUM 136 MMOL/L (136-145)
--- NOTE | 2020-08-02 07:25 | NUR ---
NURSE HAND-OFF REPORT: Latest Vital Signs: Temperature 97.7 , Pulse 95 , B/P 117 /59 , Respiratory Rate 24 , O2 SAT 95 , Mechanical Ventilator, O2 Flow Rate . Vital Sign Comment: EKG Rhythm: Sinus Rhythm Rhythm change?: N MD Notified?: - MD Response: Latest Van Fall Score: 50 Fall Risk: High Risk Safety Measures: Call light Within Reach, Bed Alarm Zone 1, Side Rails Side Rails x3, Bed position Low and Locked. Fall Precautions: Yellow Socks Door Sign Patient Fall Education Report given to CHARMAINE Mcneill.
--- NOTE | 2020-08-02 07:26 | NUR ---
NURSE NOTES: Patient is observed resting in bed and remains lightly sedated with a RASS score of -2 noted. FLACC score of 0 noted upon assessment. Patient is currently orally intubated ET tube size 7.5 noted to be 23 @ lip and pt appears to be tolerating current vent settings well with an O2 saturation of of 94% at this time. Vent settings as follows: AC 26 TV 450 FiO2 100% PEEP 15. Bilateral lower lobe breath sounds noted to be diminished upon auscultation with rhonchi noted in bilateral upper lobes. Patient noted to be Sinus Rhythm on front desk monitor with a Heart rate of 79, Blood Pressure remains stable at this time. Left FA 20g IV Catheter and R Femoral TLC noted which remain asymptomatic, intact and patent. Central line dressing remains clean, dry and intact. NS is currently infusing at 75mL/hr as ordered, Fentanyl infusing at 240mcg/hr, Propofol infusing at 40 mcg/kg/min and Dopamine infusing at 6 mcg/kg/min. Current drips noted to be therapeutic at this time. Active bowel sounds noted in all four quadrants; abdomen remains flat, soft and nontender. OG tube noted which remains secured and patent with Vital AF currently infusing at 35mL/hr as ordered with no residual noted. Miranda catheter noted which continues to drain urine by gravity. Diagnostics reviewed at bedside. Skin remains intact. Bilateral soft wrist restraints remain in place for pt safety. Patient noted to be attempting to pull medical devices despite patient education. CMS remains intact. Will continue to assess pt for removal criteria. Fall, Aspiration and Skin precautions observed. Patient repositioned for comfort and safety. Patient remains resting in bed; Bed remains in the lowest position with the safety wheels engaged, call light within reach, side rails up x3 and bed alarm activated. Airborne isolation observed. Will continue plan of care.
[2020-08-02 07:59] LABS: HEMATOCRIT 36.8 % (42.0-52.0); HEMOGLOBIN 12.6 G/DL (14.2-18.0); MEAN CORPUSCULAR VOLUME 89 FL (80-99); PLATELET COUNT 152 K/UL (150-450); RED BLOOD COUNT 4.15 M/UL (4.70-6.10); RED CELL DISTRIBUTION WIDTH 14.3 % (11.6-14.8)
[2020-08-02 08:14] LABS: WHITE BLOOD COUNT 27.6 K/UL (4.8-10.8)
--- NOTE | 2020-08-02 08:41 | NUR ---
RD ASSESSMENT & RECOMMENDATIONS SEE CARE ACTIVITY FOR COMPLETE ASSESSMENT DAILY ESTIMATED NEEDS: Needs based on DM, Critical care/ 68.9kg 22-28 kcals/kg 6135-1058 total kcals 1.2-2 g protein/kg 83-138 g total protein 25-30 mL/kg 9414-0614 total fluid mLs NUTRITION DIAGNOSIS: * Swallowing difficulty R/T respiratory failure as evidenced by s/p code blue on 07/29, orally intubated and sedated. * Altered nutrition related lab values R/T diabetes w/ hyperglycemia as evidenced by elev BGs and POC glu (493, 550 -> 198, 150 ->293 290 330 323 282), A1C of 10.2, U glu 4+, pt on Solumedrol. CURRENT TF: Vital AF 1.2 @ 35ml/hr x 24 hrs ENTERAL NUTRITION RECOMMENDATIONS: Vital AF 1.2 @ goal rate of 55ml/hr x 24 hrs to provide 1320ml, 1584kcal, 107g prot, 1070ml free water * With hemodynamic continue Vital AF for critical care and carb control. * HOB over 30 degrees/ water flush of 180ml q 6hrs Without hemodynamic stability-> rec trophic feeding of Vital AF 1.2 @ 15ml/hr Diprivan now running @ 18.724ml (494 lipid kcal)- okay to continue Vital AF 1.2 @ 35ml/hr x 24 hrs to provide 840ml, 1008kcal, 60g prot ADDITIONAL RECOMMENDATIONS: * Calibrated bedscale wt- fluctuating daily wts * Monitor lytes, replete as needed (low phos) * Monitor hemodynamic stability: on Dopamine @ 6mcg * Monitor BGs: 200's and 300's, Levemir increased per endo * Monitor Diprivan rate, need to adjust TF rate
[2020-08-02] MEDS: Enoxaparin 40mg Inj SUBQ SCH (09:12)
[2020-08-02] MEDS: Ascorbic Acid 500mg tab ORAL SCH (09:12)
[2020-08-02] MEDS: Solu-MEDROL 40mg Inj IVP SCH ×2 (09:13→20:32)
[2020-08-02] MEDS: Pantoprazole Inj IVP SCH (09:13)
[2020-08-02] MEDS: Levemir Flexpen SUBQ SCH ×2 (09:41→20:53)
--- NOTE | 2020-08-02 10:43 | NUR ---
NURSE NOTES: Dr. Monique at bedside. And he said to reorder fentanyl and propofol today before it at 1600.
[2020-08-02] MEDS ORDERED: Sodium Phosphate 30 MM in NS 275 ML IVPB SCH (11:00)
--- NOTE | 2020-08-02 11:28 | Nephrology Progress Note ---
Assessment/Plan Problem List: (1) Pneumonia due to COVID-19 virus (2) Acute respiratory failure with hypoxia (3) Hyperglycemia due to type 2 diabetes mellitus (4) Oliguria Assessment: Likely due to hypotension Assessment Oliguria due to hypotension On low-dose pressors COVID-19 disease seems to be severe. Diabetes mellitus with hyperglycemia. Hypoxic respiratory failure Lymphocytopenia. Sinus tachycardia Leukocytosis Plan August 02: Labs reviewed. Abnormal electrolytes and chemistries addressed. Continue per consultants. August 01: Labs reviewed. Renal parameters stable. Low phosphorus replaced. Continue per consultants. July 31: Urine output improved. Renal parameters and electrolytes stable. Continue per consultants. Continue per pulmonary Continue per ID Keep the blood pressure over 100 systolic Monitor renal parameters and urine output Avoid nephrotoxic's Per orders Subjective ROS Limited/Unobtainable: Yes Objective Objective Last 24 Hour Vital Signs Date Time Temp Pulse Resp B/P (MAP) Pulse Ox O2 Delivery O2 Flow Rate FiO2 08/02/20 11:00 94 26 116/54 (74) 95 08/02/20 10:33 24 118/55 Mechanical Ventilator 100 08/02/20 10:08 24 124/58 Mechanical Ventilator 100 08/02/20 10:00 95 25 124/58 (80) 95 08/02/20 10:00 124/58 08/02/20 10:00 24 124/58 Mechanical Ventilator 100 08/02/20 10:00 25 124/58 Mechanical Ventilator 100 08/02/20 09:00 95 24 112/56 (74) 95 08/02/20 09:00 112/56 08/02/20 09:00 24 112/56 Mechanical Ventilator 100 08/02/20 09:00 24 112/56 Mechanical Ventilator 100 08/02/20 08:23 96 08/02/20 08:00 98.0 90 23 118/55 (76) 95 08/02/20 08:00 100 08/02/20 08:00 118/55 08/02/20 08:00 23 118/55 Mechanical Ventilator 100 08/02/20 08:00 23 118/55 Mechanical Ventilator 100 08/02/20 08:00 Mechanical Ventilator 08/02/20 07:00 95 24 117/59 (78) 95 08/02/20 07:00 117/59 08/02/20 07:00 24 117/59 Mechanical Ventilator 100 08/02/20 07:00 24 117/59 Mechanical Ventilator 100 08/02/20 06:28 93 23 109/58 95 08/02/20 06:00 108/51 08/02/20 06:00 24 108/51 Mechanical Ventilator 100 08/02/20 06:00 24 108/51 Mechanical Ventilator 100 08/02/20 06:00 104 25 108/51 (70) 91 08/02/20 05:58 102 29 151/62 94 08/02/20 05:45 105 25 160/73 (102) 95 08/02/20 05:45 160/73 08/02/20 05:11 25 127/48 Mechanical Ventilator 100 08/02/20 05:00 83 21 117/46 (69) 96 08/02/20 05:00 117/46 08/02/20 05:00 24 117/46 Mechanical Ventilator 100 08/02/20 05:00 25 117/46 Mechanical Ventilator 100 08/02/20 04:30 84 25 127/48 (74) 96 08/02/20 04:00 100 08/02/20 04:00 122/51 08/02/20 04:00 24 126/56 Mechanical Ventilator 100 08/02/20 04:00 24 126/56 Mechanical Ventilator 100 08/02/20 04:00 97.7 77 25 126/56 (79) 96 08/02/20 04:00 Mechanical Ventilator 08/02/20 03:32 78 08/02/20 03:30 78 23 124/53 (76) 96 08/02/20 03:21 78 28 100 08/02/20 03:00 130/55 08/02/20 03:00 24 130/55 Mechanical Ventilator 100 08/02/20 03:00 24 130/55 Mechanical Ventilator 100 08/02/20 03:00 77 25 130/55 (80) 97 08/02/20 02:30 79 24 120/53 (75) 97 08/02/20 02:00 78 24 122/54 (76) 96 08/02/20 02:00 122/54 08/02/20 02:00 25 122/54 Mechanical Ventilator 100 08/02/20 02:00 25 122/54 Mechanical Ventilator 100 08/02/20 01:30 77 24 123/54 (77) 97 08/02/20 01:00 83 22 118/52 (74) 96 08/02/20 01:00 118/52 08/02/20 01:00 24 118/52 Mechanical Ventilator 100 08/02/20 01:00 24 118/52 Mechanical Ventilator 100 08/02/20 00:47 24 122/54 Mechanical Ventilator 100 08/02/20 00:46 24 122/54 Mechanical Ventilator 100 08/02/20 00:30 82 24 123/54 (77) 97 08/02/20 00:00 98.9 92 24 122/54 (76) 96 08/02/20 00:00 Mechanical Ventilator 08/02/20 00:00 118/52 08/02/20 00:00 24 122/54 Mechanical Ventilator 100 08/02/20 00:00 24 122/54 Mechanical Ventilator 100 08/02/20 00:00 100 08/01/20 23:40 90 08/01/20 23:30 89 23 114/53 (73) 96 08/01/20 23:23 95 30 100 08/01/20 23:00 93 23 119/56 (77) 96 08/01/20 23:00 22 119/56 Mechanical Ventilator 100 08/01/20 23:00 22 119/56 Mechanical Ventilator 100 08/01/20 23:00 119/56 08/01/20 22:30 96 24 108/54 (72) 96 08/01/20 22:00 95 24 114/52 (72) 96 08/01/20 22:00 26 114/52 Mechanical Ventilator 100 08/01/20 22:00 26 114/52 Mechanical Ventilator 100 08/01/20 22:00 114/52 08/01/20 21:32 26 112/54 Mechanical Ventilator 100 08/01/20 21:30 100 25 112/54 (73) 95 08/01/20 21:00 26 103/55 Mechanical Ventilator 100 08/01/20 21:00 26 103/55 Mechanical Ventilator 100 08/01/20 21:00 103/55 08/01/20 21:00 104 24 103/55 (71) 95 08/01/20 20:30 99 24 117/54 (75) 95 08/01/20 20:00 98.5 99 24 107/54 (71) 94 08/01/20 20:00 Mechanical Ventilator 08/01/20 20:00 100 08/01/20 20:00 26 107/54 Mechanical Ventilator 100 08/01/20 20:00 26 107/54 Mechanical Ventilator 100 08/01/20 20:00 107/54 08/01/20 20:00 99 08/01/20 19:00 26 108/53 Mechanical Ventilator 100 08/01/20 19:00 26 108/53 Mechanical Ventilator 100 08/01/20 19:00 108/53 08/01/20 19:00 98 23 115/59 (77) 95 08/01/20 18:30 97 28 100 08/01/20 18:30 101 25 113/52 (72) 96 08/01/20 18:00 103 26 113/54 (73) 97 08/01/20 18:00 26 110/53 Mechanical Ventilator 100 08/01/20 18:00 26 107/53 Mechanical Ventilator 100 08/01/20 18:00 107/53 08/01/20 17:30 108 21 114/52 (72) 96 08/01/20 17:00 23 134/58 Mechanical Ventilator 100 08/01/20 17:00 23 134/58 Mechanical Ventilator 100 08/01/20 17:00 134/58 08/01/20 17:00 158 17 101/61 (74) 87 08/01/20 16:30 84 25 124/58 (80) 95 08/01/20 16:15 26 128/50 Mechanical Ventilator 100 08/01/20 16:00 98.3 86 26 128/50 (76) 95 08/01/20 16:00 Mechanical Ventilator 08/01/20 16:00 100 08/01/20 16:00 26 128/50 Mechanical Ventilator 100 08/01/20 16:00 26 128/50 Mechanical Ventilator 100 08/01/20 16:00 128/50 08/01/20 15:30 84 26 127/50 (75) 96 08/01/20 15:00 26 119/49 Mechanical Ventilator 100 08/01/20 15:00 26 119/49 Mechanical Ventilator 26 08/01/20 15:00 119/49 08/01/20 15:00 81 26 123/50 (74) 96 08/01/20 14:56 90 30 100 08/01/20 14:37 26 100/44 Mechanical Ventilator 100 08/01/20 14:30 86 24 100/44 (62) 96 08/01/20 14:00 86 08/01/20 14:00 26 108/48 Mechanical Ventilator 100 12/23/20 14:00 26 108/48 Mechanical Ventilator 100 08/01/20 14:00 108/48 08/01/20 14:00 80 26 118/48 (71) 97 08/01/20 13:30 87 25 116/50 (72) 98 08/01/20 13:00 26 114/50 Mechanical Ventilator 100 08/01/20 13:00 26 114/50 Mechanical Ventilator 100 08/01/20 13:00 114/50 08/01/20 13:00 76 26 111/50 (70) 98 08/01/20 12:30 77 26 114/49 (70) 98 08/01/20 12:00 Mechanical Ventilator 08/01/20 12:00 26 111/48 Mechanical Ventilator 100 08/01/20 12:00 26 111/48 Mechanical Ventilator 100 08/01/20 12:00 111/48 08/01/20 12:00 79 08/01/20 12:00 98.9 79 26 117/50 (72) 98 08/01/20 12:00 100 08/01/20 11:48 76 24 100 08/01/20 11:30 82 26 116/45 (68) 97 Intake and Output 08/01/20 08/02/20 19:00 07:00 Intake Total 2730.830 ml 2331.420 ml Output Total 880 ml 875 ml Balance 1850.830 ml 1456.420 ml Free Water 30 ml IV Total 2070.830 ml 1761.420 ml Tube Feeding 420 ml 420 ml Other 240 ml 120 ml Output Urine Total 880 ml 875 ml Laboratory Tests 08/01/20 23:59: POC Whole Blood Glucose [Pending] 08/02/20 04:04: POC Whole Blood Glucose [Pending] 08/02/20 04:30: White Blood Count 27.6*H, Red Blood Count 4.15L, Hemoglobin 12.6L, Hematocrit 36.8L, Mean Corpuscular Volume 89, Mean Corpuscular Hemoglobin 30.3, Mean Corpuscular Hemoglobin Concent 34.2, Red Cell Distribution Width 14.3, Platelet Count 152, Mean Platelet Volume 6.7, Neutrophils (%) (Auto) , Lymphocytes (%) (Auto) , Monocytes (%) (Auto) , Eosinophils (%) (Auto) , Basophils (%) (Auto) , Neutrophils % (Manual) [Pending], Lymphocytes % (Manual) [Pending], Platelet Estimate [Pending], Platelet Morphology [Pending], Sodium Level 136, Potassium Level 4.4, Chloride Level 105, Carbon Dioxide Level 30, Anion Gap 1L, Blood Urea Nitrogen 17, Creatinine 0.7, Estimat Glomerular Filtration Rate > 60, Glucose Level 352#H, Calcium Level 7.4L, Phosphorus Level 2.2L, Magnesium Level 2.2, Total Bilirubin 0.4, Aspartate Amino Transf (AST/SGOT) 20, Alanine Aminotransferase (ALT/SGPT) 13, Alkaline Phosphatase 116, C-Reactive Protein, Quantitative 47.0H, Pro-B-Type Natriuretic Peptide 393H, Total Protein 5.5L, Albumin 1.1L, Globulin 4.4, Albumin/Globulin Ratio 0.2L, Triglycerides Level 270H 08/02/20 08:36: Arterial Blood pH 7.321L, Arterial Blood Partial Pressure CO2 62.3*H, Arterial Blood Partial Pressure O2 70.5L, Arterial Blood HCO3 31.5H, Arterial Blood Oxygen Saturation 94.5L, Arterial Blood Base Excess 3.8H, Francisco Test Positive Height (Feet): 5 Height (Inches): 6.00 Weight (Pounds): 172 General Appearance: no apparent distress Cardiovascular: normal rate Respiratory/Chest: decreased breath sounds Abdomen: distended José Luis Preciado MD Aug 02, 2020 11:28
--- NOTE | 2020-08-02 13:06 | Cardiac Electrophysiology PN ---
Assessment/Plan Assessment/Plan 1. Troponin elevation. Due to stress of respiratory failure in this patient with COVID pneumonia. EF 65% 2. COVID pneumonia and respiratory failure. The patient is on the ventilator with 100% FiO2 and PEEP of 15. Reintubated 07/31/20 3. Hypotension. Continue dopamine 6 mcg for bradycardia 4. Respiratory failure, on the ventilator. 5. Diabetes. Further evaluation and management. 6. Sepsis. On Zosyn per Dr. Christian Caraballo. SARANYA RN in ICU Subjective Subjective Self extubated and reintubated in ICU on the Vent with 100% Fio2 and PEEP 15 and Dopamine decreased to 6 Mcg. HR 70s on fentanyl and propofol drip Objective Last 24 Hour Vital Signs Date Time Temp Pulse Resp B/P (MAP) Pulse Ox O2 Delivery O2 Flow Rate FiO2 08/02/20 11:00 94 26 116/54 (74) 95 08/02/20 10:33 24 118/55 Mechanical Ventilator 100 08/02/20 10:08 24 124/58 Mechanical Ventilator 100 08/02/20 10:00 95 25 124/58 (80) 95 08/02/20 10:00 124/58 08/02/20 10:00 24 124/58 Mechanical Ventilator 100 08/02/20 10:00 25 124/58 Mechanical Ventilator 100 08/02/20 09:00 95 24 112/56 (74) 95 08/02/20 09:00 112/56 08/02/20 09:00 24 112/56 Mechanical Ventilator 100 08/02/20 09:00 24 112/56 Mechanical Ventilator 100 08/02/20 08:23 96 08/02/20 08:00 98.0 90 23 118/55 (76) 95 08/02/20 08:00 100 08/02/20 08:00 118/55 08/02/20 08:00 23 118/55 Mechanical Ventilator 100 08/02/20 08:00 23 118/55 Mechanical Ventilator 100 08/02/20 08:00 Mechanical Ventilator 08/02/20 07:00 95 24 117/59 (78) 95 08/02/20 07:00 117/59 08/02/20 07:00 24 117/59 Mechanical Ventilator 100 08/02/20 07:00 24 117/59 Mechanical Ventilator 100 08/02/20 06:28 93 23 109/58 95 08/02/20 06:00 108/51 08/02/20 06:00 24 108/51 Mechanical Ventilator 100 08/02/20 06:00 24 108/51 Mechanical Ventilator 100 08/02/20 06:00 104 25 108/51 (70) 91 08/02/20 05:58 102 29 151/62 94 08/02/20 05:45 105 25 160/73 (102) 95 08/02/20 05:45 160/73 08/02/20 05:11 25 127/48 Mechanical Ventilator 100 08/02/20 05:00 83 21 117/46 (69) 96 08/02/20 05:00 117/46 08/02/20 05:00 24 117/46 Mechanical Ventilator 100 08/02/20 05:00 25 117/46 Mechanical Ventilator 100 08/02/20 04:30 84 25 127/48 (74) 96 08/02/20 04:00 100 08/02/20 04:00 122/51 08/02/20 04:00 24 126/56 Mechanical Ventilator 100 08/02/20 04:00 24 126/56 Mechanical Ventilator 100 08/02/20 04:00 97.7 77 25 126/56 (79) 96 08/02/20 04:00 Mechanical Ventilator 08/02/20 03:32 78 08/02/20 03:30 78 23 124/53 (76) 96 08/02/20 03:21 78 28 100 08/02/20 03:00 130/55 08/02/20 03:00 24 130/55 Mechanical Ventilator 100 08/02/20 03:00 24 130/55 Mechanical Ventilator 100 08/02/20 03:00 77 25 130/55 (80) 97 08/02/20 02:30 79 24 120/53 (75) 97 08/02/20 02:00 78 24 122/54 (76) 96 08/02/20 02:00 122/54 08/02/20 02:00 25 122/54 Mechanical Ventilator 100 08/02/20 02:00 25 122/54 Mechanical Ventilator 100 08/02/20 01:30 77 24 123/54 (77) 97 08/02/20 01:00 83 22 118/52 (74) 96 08/02/20 01:00 118/52 08/02/20 01:00 24 118/52 Mechanical Ventilator 100 08/02/20 01:00 24 118/52 Mechanical Ventilator 100 08/02/20 00:47 24 122/54 Mechanical Ventilator 100 08/02/20 00:46 24 122/54 Mechanical Ventilator 100 08/02/20 00:30 82 24 123/54 (77) 97 08/02/20 00:00 98.9 92 24 122/54 (76) 96 08/02/20 00:00 Mechanical Ventilator 08/02/20 00:00 118/52 08/02/20 00:00 24 122/54 Mechanical Ventilator 100 08/02/20 00:00 24 122/54 Mechanical Ventilator 100 08/02/20 00:00 100 08/01/20 23:40 90 08/01/20 23:30 89 23 114/53 (73) 96 08/01/20 23:23 95 30 100 08/01/20 23:00 93 23 119/56 (77) 96 08/01/20 23:00 22 119/56 Mechanical Ventilator 100 08/01/20 23:00 22 119/56 Mechanical Ventilator 100 08/01/20 23:00 119/56 08/01/20 22:30 96 24 108/54 (72) 96 08/01/20 22:00 95 24 114/52 (72) 96 08/01/20 22:00 26 114/52 Mechanical Ventilator 100 08/01/20 22:00 26 114/52 Mechanical Ventilator 100 08/01/20 22:00 114/52 08/01/20 21:32 26 112/54 Mechanical Ventilator 100 08/01/20 21:30 100 25 112/54 (73) 95 08/01/20 21:00 26 103/55 Mechanical Ventilator 100 08/01/20 21:00 26 103/55 Mechanical Ventilator 100 08/01/20 21:00 103/55 08/01/20 21:00 104 24 103/55 (71) 95 08/01/20 20:30 99 24 117/54 (75) 95 08/01/20 20:00 98.5 99 24 107/54 (71) 94 08/01/20 20:00 Mechanical Ventilator 08/01/20 20:00 100 08/01/20 20:00 26 107/54 Mechanical Ventilator 100 08/01/20 20:00 26 107/54 Mechanical Ventilator 100 08/01/20 20:00 107/54 08/01/20 20:00 99 08/01/20 19:00 26 108/53 Mechanical Ventilator 100 08/01/20 19:00 26 108/53 Mechanical Ventilator 100 08/01/20 19:00 108/53 08/01/20 19:00 98 23 115/59 (77) 95 08/01/20 18:30 97 28 100 08/01/20 18:30 101 25 113/52 (72) 96 08/01/20 18:00 103 26 113/54 (73) 97 08/01/20 18:00 26 110/53 Mechanical Ventilator 100 08/01/20 18:00 26 107/53 Mechanical Ventilator 100 08/01/20 18:00 107/53 08/01/20 17:30 108 21 114/52 (72) 96 08/01/20 17:00 23 134/58 Mechanical Ventilator 100 08/01/20 17:00 23 134/58 Mechanical Ventilator 100 08/01/20 17:00 134/58 08/01/20 17:00 158 17 101/61 (74) 87 08/01/20 16:30 84 25 124/58 (80) 95 08/01/20 16:15 26 128/50 Mechanical Ventilator 100 08/01/20 16:00 98.3 86 26 128/50 (76) 95 08/01/20 16:00 Mechanical Ventilator 08/01/20 16:00 100 08/01/20 16:00 26 128/50 Mechanical Ventilator 100 08/01/20 16:00 26 128/50 Mechanical Ventilator 100 08/01/20 16:00 128/50 08/01/20 15:30 84 26 127/50 (75) 96 08/01/20 15:00 26 119/49 Mechanical Ventilator 100 08/01/20 15:00 26 119/49 Mechanical Ventilator 26 08/01/20 15:00 119/49 08/01/20 15:00 81 26 123/50 (74) 96 08/01/20 14:56 90 30 100 08/01/20 14:37 26 100/44 Mechanical Ventilator 100 08/01/20 14:30 86 24 100/44 (62) 96 08/01/20 14:00 86 08/01/20 14:00 26 108/48 Mechanical Ventilator 100 08/01/20 14:00 26 108/48 Mechanical Ventilator 100 08/01/20 14:00 108/48 08/01/20 14:00 80 26 118/48 (71) 97 08/01/20 13:30 87 25 116/50 (72) 98 Intake and Output 08/01/20 08/02/20 19:00 07:00 Intake Total 2730.830 ml 2331.420 ml Output Total 880 ml 875 ml Balance 1850.830 ml 1456.420 ml Free Water 30 ml IV Total 2070.830 ml 1761.420 ml Tube Feeding 420 ml 420 ml Other 240 ml 120 ml Output Urine Total 880 ml 875 ml Laboratory Tests Test 08/01/20 23:59 08/02/20 04:04 08/02/20 04:30 08/02/20 08:36 POC Whole Blood Glucose Pending Pending White Blood Count 27.6 K/UL (4.8-10.8) *H Red Blood Count 4.15 M/UL (4.70-6.10) L Hemoglobin 12.6 G/DL (14.2-18.0) L Hematocrit 36.8 % (42.0-52.0) L Mean Corpuscular Volume 89 FL (80-99) Mean Corpuscular Hemoglobin 30.3 PG (27.0-31.0) Mean Corpuscular Hemoglobin Concent 34.2 G/DL (32.0-36.0) Red Cell Distribution Width 14.3 % (11.6-14.8) Platelet Count 152 K/UL (150-450) Mean Platelet Volume 6.7 FL (6.5-10.1) Neutrophils (%) (Auto) % (45.0-75.0) Lymphocytes (%) (Auto) % (20.0-45.0) Monocytes (%) (Auto) % (1.0-10.0) Eosinophils (%) (Auto) % (0.0-3.0) Basophils (%) (Auto) % (0.0-2.0) Differential Total Cells Counted 100 Neutrophils % (Manual) 96 % (45-75) H Lymphocytes % (Manual) 2 % (20-45) L Monocytes % (Manual) 0 % (1-10) L Eosinophils % (Manual) 2 % (0-3) Basophils % (Manual) 0 % (0-2) Band Neutrophils 0 % (0-8) Platelet Estimate Adequate Platelet Morphology Normal Red Blood Cell Morphology Normal Sodium Level 136 MMOL/L (136-145) Potassium Level 4.4 MMOL/L (3.5-5.1) Chloride Level 105 MMOL/L (98-107) Carbon Dioxide Level 30 MMOL/L (21-32) Anion Gap 1 mmol/L (5-15) L Blood Urea Nitrogen 17 mg/dL (7-18) Creatinine 0.7 MG/DL (0.55-1.30) Estimat Glomerular Filtration Rate > 60 mL/min (>60) Glucose Level 352 MG/DL (74-106) #H Calcium Level 7.4 MG/DL (8.5-10.1) L Phosphorus Level 2.2 MG/DL (2.5-4.9) L Magnesium Level 2.2 MG/DL (1.8-2.4) Total Bilirubin 0.4 MG/DL (0.2-1.0) Aspartate Amino Transf (AST/SGOT) 20 U/L (15-37) Alanine Aminotransferase (ALT/SGPT) 13 U/L (12-78) Alkaline Phosphatase 116 U/L (46-116) C-Reactive Protein, Quantitative 47.0 mg/dL (0.00-0.90) H Pro-B-Type Natriuretic Peptide 393 pg/mL (0-125) H Total Protein 5.5 G/DL (6.4-8.2) L Albumin 1.1 G/DL (3.4-5.0) L Globulin 4.4 g/dL Albumin/Globulin Ratio 0.2 (1.0-2.7) L Triglycerides Level 270 MG/DL (30-150) H Arterial Blood pH 7.321 (7.350-7.450) Arterial Blood Partial Pressure CO2 62.3 mmHg (35.0-45.0) *H Arterial Blood Partial Pressure O2 70.5 mmHg (75.0-100.0) L Arterial Blood HCO3 31.5 mmol/L (22.0-26.0) H Arterial Blood Oxygen Saturation 94.5 % (95-100) L Arterial Blood Base Excess 3.8 (-2-2) H Francisco Test Positive Microbiology Date/Time Source Procedure Growth Status 07/31/20 03:00 Sputum Gram Stain - Final Complete 07/31/20 03:00 Sputum Culture - Final Lindy Albicans Usual Respiratory Aide Complete Objective HEAD AND NECK: Orally intubated. LUNGS: Decreased breath sounds and coarse rhonchi. CARDIOVASCULAR: Regular S1 and S2 with no gallop or murmur. ABDOMEN: Soft. EXTREMITIES: No pitting edema. Jeancarlos Carranza MD Aug 02, 2020 13:06
--- NOTE | 2020-08-02 13:17 | General Progress Note ---
Subjective ROS Limited/Unobtainable: Yes Allergies: Coded Allergies: No Known Allergies (Unverified , 07/21/20) Objective Last 24 Hour Vital Signs Date Time Temp Pulse Resp B/P (MAP) Pulse Ox O2 Delivery O2 Flow Rate FiO2 08/02/20 13:00 90 25 124/51 (75) 95 08/02/20 12:30 89 24 132/55 (80) 95 08/02/20 12:15 91 25 122/55 (77) 95 08/02/20 12:00 98.2 92 24 120/55 (76) 95 08/02/20 12:00 100 08/02/20 12:00 Mechanical Ventilator 08/02/20 11:26 97 08/02/20 11:00 94 26 116/54 (74) 95 08/02/20 10:45 94 23 120/58 (78) 95 08/02/20 10:33 24 118/55 Mechanical Ventilator 100 08/02/20 10:08 24 124/58 Mechanical Ventilator 100 08/02/20 10:00 95 25 124/58 (80) 95 08/02/20 10:00 124/58 08/02/20 10:00 24 124/58 Mechanical Ventilator 100 08/02/20 10:00 25 124/58 Mechanical Ventilator 100 08/02/20 09:00 95 24 112/56 (74) 95 08/02/20 09:00 112/56 08/02/20 09:00 24 112/56 Mechanical Ventilator 100 08/02/20 09:00 24 112/56 Mechanical Ventilator 100 08/02/20 08:23 96 08/02/20 08:00 98.0 90 23 118/55 (76) 95 08/02/20 08:00 100 08/02/20 08:00 118/55 08/02/20 08:00 23 118/55 Mechanical Ventilator 100 08/02/20 08:00 23 118/55 Mechanical Ventilator 100 08/02/20 08:00 Mechanical Ventilator 08/02/20 07:00 95 24 117/59 (78) 95 08/02/20 07:00 117/59 08/02/20 07:00 24 117/59 Mechanical Ventilator 100 08/02/20 07:00 24 117/59 Mechanical Ventilator 100 08/02/20 06:28 93 23 109/58 95 08/02/20 06:00 108/51 08/02/20 06:00 24 108/51 Mechanical Ventilator 100 08/02/20 06:00 24 108/51 Mechanical Ventilator 100 08/02/20 06:00 104 25 108/51 (70) 91 08/02/20 05:58 102 29 151/62 94 08/02/20 05:45 105 25 160/73 (102) 95 08/02/20 05:45 160/73 08/02/20 05:11 25 127/48 Mechanical Ventilator 100 08/02/20 05:00 83 21 117/46 (69) 96 08/02/20 05:00 117/46 08/02/20 05:00 24 117/46 Mechanical Ventilator 100 08/02/20 05:00 25 117/46 Mechanical Ventilator 100 08/02/20 04:30 84 25 127/48 (74) 96 08/02/20 04:00 100 08/02/20 04:00 122/51 08/02/20 04:00 24 126/56 Mechanical Ventilator 100 08/02/20 04:00 24 126/56 Mechanical Ventilator 100 08/02/20 04:00 97.7 77 25 126/56 (79) 96 08/02/20 04:00 Mechanical Ventilator 08/02/20 03:32 78 08/02/20 03:30 78 23 124/53 (76) 96 08/02/20 03:21 78 28 100 08/02/20 03:00 130/55 08/02/20 03:00 24 130/55 Mechanical Ventilator 100 08/02/20 03:00 24 130/55 Mechanical Ventilator 100 08/02/20 03:00 77 25 130/55 (80) 97 08/02/20 02:30 79 24 120/53 (75) 97 08/02/20 02:00 78 24 122/54 (76) 96 08/02/20 02:00 122/54 08/02/20 02:00 25 122/54 Mechanical Ventilator 100 08/02/20 02:00 25 122/54 Mechanical Ventilator 100 08/02/20 01:30 77 24 123/54 (77) 97 08/02/20 01:00 83 22 118/52 (74) 96 08/02/20 01:00 118/52 08/02/20 01:00 24 118/52 Mechanical Ventilator 100 08/02/20 01:00 24 118/52 Mechanical Ventilator 100 08/02/20 00:47 24 122/54 Mechanical Ventilator 100 08/02/20 00:46 24 122/54 Mechanical Ventilator 100 08/02/20 00:30 82 24 123/54 (77) 97 08/02/20 00:00 98.9 92 24 122/54 (76) 96 08/02/20 00:00 Mechanical Ventilator 08/02/20 00:00 118/52 08/02/20 00:00 24 122/54 Mechanical Ventilator 100 08/02/20 00:00 24 122/54 Mechanical Ventilator 100 08/02/20 00:00 100 08/01/20 23:40 90 08/01/20 23:30 89 23 114/53 (73) 96 08/01/20 23:23 95 30 100 08/01/20 23:00 93 23 119/56 (77) 96 08/01/20 23:00 22 119/56 Mechanical Ventilator 100 08/01/20 23:00 22 119/56 Mechanical Ventilator 100 08/01/20 23:00 119/56 08/01/20 22:30 96 24 108/54 (72) 96 08/01/20 22:00 95 24 114/52 (72) 96 08/01/20 22:00 26 114/52 Mechanical Ventilator 100 08/01/20 22:00 26 114/52 Mechanical Ventilator 100 08/01/20 22:00 114/52 08/01/20 21:32 26 112/54 Mechanical Ventilator 100 08/01/20 21:30 100 25 112/54 (73) 95 08/01/20 21:00 26 103/55 Mechanical Ventilator 100 08/01/20 21:00 26 103/55 Mechanical Ventilator 100 08/01/20 21:00 103/55 08/01/20 21:00 104 24 103/55 (71) 95 08/01/20 20:30 99 24 117/54 (75) 95 08/01/20 20:00 98.5 99 24 107/54 (71) 94 08/01/20 20:00 Mechanical Ventilator 08/01/20 20:00 100 08/01/20 20:00 26 107/54 Mechanical Ventilator 100 08/01/20 20:00 26 107/54 Mechanical Ventilator 100 08/01/20 20:00 107/54 08/01/20 20:00 99 08/01/20 19:00 26 108/53 Mechanical Ventilator 100 08/01/20 19:00 26 108/53 Mechanical Ventilator 100 08/01/20 19:00 108/53 08/01/20 19:00 98 23 115/59 (77) 95 08/01/20 18:30 97 28 100 08/01/20 18:30 101 25 113/52 (72) 96 08/01/20 18:00 103 26 113/54 (73) 97 08/01/20 18:00 26 110/53 Mechanical Ventilator 100 08/01/20 18:00 26 107/53 Mechanical Ventilator 100 08/01/20 18:00 107/53 08/01/20 17:30 108 21 114/52 (72) 96 08/01/20 17:00 23 134/58 Mechanical Ventilator 100 08/01/20 17:00 23 134/58 Mechanical Ventilator 100 08/01/20 17:00 134/58 08/01/20 17:00 158 17 101/61 (74) 87 08/01/20 16:30 84 25 124/58 (80) 95 08/01/20 16:15 26 128/50 Mechanical Ventilator 100 08/01/20 16:00 98.3 86 26 128/50 (76) 95 08/01/20 16:00 Mechanical Ventilator 08/01/20 16:00 100 08/01/20 16:00 26 128/50 Mechanical Ventilator 100 08/01/20 16:00 26 128/50 Mechanical Ventilator 100 08/01/20 16:00 128/50 08/01/20 15:30 84 26 127/50 (75) 96 08/01/20 15:00 26 119/49 Mechanical Ventilator 100 08/01/20 15:00 26 119/49 Mechanical Ventilator 26 08/01/20 15:00 119/49 08/01/20 15:00 81 26 123/50 (74) 96 08/01/20 14:56 90 30 100 08/01/20 14:37 26 100/44 Mechanical Ventilator 100 08/01/20 14:30 86 24 100/44 (62) 96 08/01/20 14:00 86 08/01/20 14:00 26 108/48 Mechanical Ventilator 100 08/01/20 14:00 26 108/48 Mechanical Ventilator 100 08/01/20 14:00 108/48 08/01/20 14:00 80 26 118/48 (71) 97 08/01/20 13:30 87 25 116/50 (72) 98 Intake and Output 08/01/20 08/02/20 19:00 07:00 Intake Total 2730.830 ml 2331.420 ml Output Total 880 ml 875 ml Balance 1850.830 ml 1456.420 ml Free Water 30 ml IV Total 2070.830 ml 1761.420 ml Tube Feeding 420 ml 420 ml Other 240 ml 120 ml Output Urine Total 880 ml 875 ml Laboratory Tests 08/01/20 23:59: POC Whole Blood Glucose [Pending] 08/02/20 04:04: POC Whole Blood Glucose [Pending] 08/02/20 04:30: White Blood Count 27.6*H, Red Blood Count 4.15L, Hemoglobin 12.6L, Hematocrit 36.8L, Mean Corpuscular Volume 89, Mean Corpuscular Hemoglobin 30.3, Mean Corpuscular Hemoglobin Concent 34.2, Red Cell Distribution Width 14.3, Platelet Count 152, Mean Platelet Volume 6.7, Neutrophils (%) (Auto) , Lymphocytes (%) (A uto) , Monocytes (%) (Auto) , Eosinophils (%) (Auto) , Basophils (%) (Auto) , Differential Total Cells Counted 100, Neutrophils % (Manual) 96H, Lymphocytes % (Manual) 2L, Monocytes % (Manual) 0L, Eosinophils % (Manual) 2, Basophils % (Manual) 0, Band Neutrophils 0, Platelet Estimate Adequate, Platelet Morphology Normal, Red Blood Cell Morphology Normal, Sodium Level 136, Potassium Level 4.4, Chloride Level 105, Carbon Dioxide Level 30, Anion Gap 1L, Blood Urea Nitrogen 17, Creatinine 0.7, Estimat Glomerular Filtration Rate > 60, Glucose Level 352#H , Calcium Level 7.4L, Phosphorus Level 2.2L, Magnesium Level 2.2, Total Bilirubin 0.4, Aspartate Amino Transf (AST/SGOT) 20, Alanine Aminotransferase (ALT/SGPT) 13, Alkaline Phosphatase 116, C-Reactive Protein, Quantitative 47.0H, Pro-B-Type Natriuretic Peptide 393H, Total Protein 5.5L, Albumin 1.1L, Globulin 4.4, Albumin/Globulin Ratio 0.2L, Triglycerides Level 270H 08/02/20 08:36: Arterial Blood pH 7.321L, Arterial Blood Partial Pressure CO2 62.3*H, Arterial Blood Partial Pressure O2 70.5L, Arterial Blood HCO3 31.5H, Arterial Blood Oxygen Saturation 94.5L, Arterial Blood Base Excess 3.8H, Francisco Test Positive Height (Feet): 5 Height (Inches): 6.00 Weight (Pounds): 172 Assessment/Plan Problem List: (1) Acute respiratory failure with hypoxia ICD Codes: J96.01 - Acute respiratory failure with hypoxia; J12.89 - Other viral pneumonia SNOMED: 58233154, [id number] (2) Pneumonia due to COVID-19 virus ICD Codes: U07.1 - COVID-19; J12.89 - Other viral pneumonia SNOMED: 129549617481940144 (3) Hyperglycemia due to type 2 diabetes mellitus ICD Codes: E11.65 - Type 2 diabetes mellitus with hyperglycemia; J12.89 - Other viral pneumonia SNOMED: 203293911640899, [id number] Qualifiers: Qualified Codes: E11.65 - Type 2 diabetes mellitus with hyperglycemia Status: progressing Assessment/Plan: covid positive pna intubated resp failure poor prognosis niddm sugar is labile afebrile Milagro Miller MD Aug 02, 2020 13:17
--- NOTE | 2020-08-02 14:06 | Pulmonology Progress Note ---
Subjective ROS Limited/Unobtainable: Yes Interval Events: s/p intubation, sedation, now in ICU Constitutional: Denies: fever HEENT: Repors: no symptoms Respiratory: Reports: no symptoms, dry cough Cardiovascular: Reports: no symptoms; Denies: chest pain, palpitations Gastrointestinal/Abdominal: Reports: no symptoms Musculoskeletal: Reports: other - legs cramps Allergies: Coded Allergies: No Known Allergies (Unverified , 07/21/20) All Systems: reviewed and negative except above Objective Last 24 Hour Vital Signs Date Time Temp Pulse Resp B/P (MAP) Pulse Ox O2 Delivery O2 Flow Rate FiO2 08/02/20 13:00 90 25 124/51 (75) 95 08/02/20 13:00 124/51 08/02/20 13:00 25 124/51 Mechanical Ventilator 100 08/02/20 13:00 25 124/51 Mechanical Ventilator 100 08/02/20 12:30 89 24 132/55 (80) 95 08/02/20 12:15 91 25 122/55 (77) 95 08/02/20 12:00 98.2 92 24 120/55 (76) 95 08/02/20 12:00 120/55 08/02/20 12:00 24 120/55 Mechanical Ventilator 100 08/02/20 12:00 24 120/55 Mechanical Ventilator 100 08/02/20 12:00 100 08/02/20 12:00 Mechanical Ventilator 08/02/20 11:26 97 08/02/20 11:00 116/54 08/02/20 11:00 26 116/54 Mechanical Ventilator 100 08/02/20 11:00 26 116/54 Mechanical Ventilator 100 08/02/20 11:00 94 26 116/54 (74) 95 08/02/20 10:45 94 23 120/58 (78) 95 08/02/20 10:33 24 118/55 Mechanical Ventilator 100 08/02/20 10:08 24 124/58 Mechanical Ventilator 100 08/02/20 10:00 95 25 124/58 (80) 95 08/02/20 10:00 124/58 08/02/20 10:00 24 124/58 Mechanical Ventilator 100 08/02/20 10:00 25 124/58 Mechanical Ventilator 100 08/02/20 09:00 95 24 112/56 (74) 95 08/02/20 09:00 112/56 08/02/20 09:00 24 112/56 Mechanical Ventilator 100 08/02/20 09:00 24 112/56 Mechanical Ventilator 100 08/02/20 08:23 96 08/02/20 08:00 98.0 90 23 118/55 (76) 95 08/02/20 08:00 100 08/02/20 08:00 118/55 08/02/20 08:00 23 118/55 Mechanical Ventilator 100 08/02/20 08:00 23 118/55 Mechanical Ventilator 100 08/02/20 08:00 Mechanical Ventilator 08/02/20 07:00 95 24 117/59 (78) 95 08/02/20 07:00 117/59 08/02/20 07:00 24 117/59 Mechanical Ventilator 100 08/02/20 07:00 24 117/59 Mechanical Ventilator 100 08/02/20 06:28 93 23 109/58 95 08/02/20 06:00 108/51 08/02/20 06:00 24 108/51 Mechanical Ventilator 100 08/02/20 06:00 24 108/51 Mechanical Ventilator 100 08/02/20 06:00 104 25 108/51 (70) 91 08/02/20 05:58 102 29 151/62 94 08/02/20 05:45 105 25 160/73 (102) 95 08/02/20 05:45 160/73 08/02/20 05:11 25 127/48 Mechanical Ventilator 100 08/02/20 05:00 83 21 117/46 (69) 96 08/02/20 05:00 117/46 08/02/20 05:00 24 117/46 Mechanical Ventilator 100 08/02/20 05:00 25 117/46 Mechanical Ventilator 100 08/02/20 04:30 84 25 127/48 (74) 96 08/02/20 04:00 100 08/02/20 04:00 122/51 08/02/20 04:00 24 126/56 Mechanical Ventilator 100 08/02/20 04:00 24 126/56 Mechanical Ventilator 100 08/02/20 04:00 97.7 77 25 126/56 (79) 96 08/02/20 04:00 Mechanical Ventilator 08/02/20 03:32 78 08/02/20 03:30 78 23 124/53 (76) 96 08/02/20 03:21 78 28 100 08/02/20 03:00 130/55 08/02/20 03:00 24 130/55 Mechanical Ventilator 100 08/02/20 03:00 24 130/55 Mechanical Ventilator 100 08/02/20 03:00 77 25 130/55 (80) 97 08/02/20 02:30 79 24 120/53 (75) 97 08/02/20 02:00 78 24 122/54 (76) 96 08/02/20 02:00 122/54 08/02/20 02:00 25 122/54 Mechanical Ventilator 100 08/02/20 02:00 25 122/54 Mechanical Ventilator 100 08/02/20 01:30 77 24 123/54 (77) 97 08/02/20 01:00 83 22 118/52 (74) 96 08/02/20 01:00 118/52 08/02/20 01:00 24 118/52 Mechanical Ventilator 100 08/02/20 01:00 24 118/52 Mechanical Ventilator 100 08/02/20 00:47 24 122/54 Mechanical Ventilator 100 08/02/20 00:46 24 122/54 Mechanical Ventilator 100 08/02/20 00:30 82 24 123/54 (77) 97 08/02/20 00:00 98.9 92 24 122/54 (76) 96 08/02/20 00:00 Mechanical Ventilator 08/02/20 00:00 118/52 08/02/20 00:00 24 122/54 Mechanical Ventilator 100 08/02/20 00:00 24 122/54 Mechanical Ventilator 100 08/02/20 00:00 100 08/01/20 23:40 90 08/01/20 23:30 89 23 114/53 (73) 96 08/01/20 23:23 95 30 100 08/01/20 23:00 93 23 119/56 (77) 96 08/01/20 23:00 22 119/56 Mechanical Ventilator 100 08/01/20 23:00 22 119/56 Mechanical Ventilator 100 08/01/20 23:00 119/56 08/01/20 22:30 96 24 108/54 (72) 96 08/01/20 22:00 95 24 114/52 (72) 96 08/01/20 22:00 26 114/52 Mechanical Ventilator 100 08/01/20 22:00 26 114/52 Mechanical Ventilator 100 08/01/20 22:00 114/52 12/23/20 21:32 26 112/54 Mechanical Ventilator 100 08/01/20 21:30 100 25 112/54 (73) 95 08/01/20 21:00 26 103/55 Mechanical Ventilator 100 08/01/20 21:00 26 103/55 Mechanical Ventilator 100 08/01/20 21:00 103/55 08/01/20 21:00 104 24 103/55 (71) 95 08/01/20 20:30 99 24 117/54 (75) 95 08/01/20 20:00 98.5 99 24 107/54 (71) 94 08/01/20 20:00 Mechanical Ventilator 08/01/20 20:00 100 08/01/20 20:00 26 107/54 Mechanical Ventilator 100 08/01/20 20:00 26 107/54 Mechanical Ventilator 100 08/01/20 20:00 107/54 08/01/20 20:00 99 08/01/20 19:00 26 108/53 Mechanical Ventilator 100 08/01/20 19:00 26 108/53 Mechanical Ventilator 100 08/01/20 19:00 108/53 08/01/20 19:00 98 23 115/59 (77) 95 08/01/20 18:30 97 28 100 08/01/20 18:30 101 25 113/52 (72) 96 08/01/20 18:00 103 26 113/54 (73) 97 08/01/20 18:00 26 110/53 Mechanical Ventilator 100 08/01/20 18:00 26 107/53 Mechanical Ventilator 100 08/01/20 18:00 107/53 08/01/20 17:30 108 21 114/52 (72) 96 08/01/20 17:00 23 134/58 Mechanical Ventilator 100 08/01/20 17:00 23 134/58 Mechanical Ventilator 100 08/01/20 17:00 134/58 08/01/20 17:00 158 17 101/61 (74) 87 08/01/20 16:30 84 25 124/58 (80) 95 08/01/20 16:15 26 128/50 Mechanical Ventilator 100 08/01/20 16:00 98.3 86 26 128/50 (76) 95 08/01/20 16:00 Mechanical Ventilator 08/01/20 16:00 100 08/01/20 16:00 26 128/50 Mechanical Ventilator 100 12/23/20 16:00 26 128/50 Mechanical Ventilator 100 08/01/20 16:00 128/50 08/01/20 15:30 84 26 127/50 (75) 96 08/01/20 15:00 26 119/49 Mechanical Ventilator 100 08/01/20 15:00 26 119/49 Mechanical Ventilator 26 08/01/20 15:00 119/49 08/01/20 15:00 81 26 123/50 (74) 96 08/01/20 14:56 90 30 100 08/01/20 14:37 26 100/44 Mechanical Ventilator 100 08/01/20 14:30 86 24 100/44 (62) 96 Intake and Output 08/01/20 08/02/20 19:00 07:00 Intake Total 2730.830 ml 2331.420 ml Output Total 880 ml 875 ml Balance 1850.830 ml 1456.420 ml Free Water 30 ml IV Total 2070.830 ml 1761.420 ml Tube Feeding 420 ml 420 ml Other 240 ml 120 ml Output Urine Total 880 ml 875 ml General Appearance: no acute distress HEENT: normocephalic Respiratory: chest wall non-tender, crackles/rales Cardiovascular: normal peripheral pulses, normal rate Abdomen: normal bowel sounds Extremities: no cyanosis, no clubbing Microbiology Date/Time Source Procedure Growth Status 07/31/20 03:00 Sputum Gram Stain - Final Complete 07/31/20 03:00 Sputum Culture - Final Lindy Albicans Usual Respiratory Aide Complete Laboratory Tests 08/01/20 23:59: POC Whole Blood Glucose [Pending] 08/02/20 04:04: POC Whole Blood Glucose [Pending] 08/02/20 04:30: White Blood Count 27.6*H, Red Blood Count 4.15L, Hemoglobin 12.6L, Hematocrit 36.8L, Mean Corpuscular Volume 89, Mean Corpuscular Hemoglobin 30.3, Mean Corpuscular Hemoglobin Concent 34.2, Red Cell Distribution Width 14.3, Platelet Count 152, Mean Platelet Volume 6.7, Neutrophils (%) (Auto) , Lymphocytes (%) (Auto) , Monocytes (%) (Auto) , Eosinophils (%) (Auto) , Basophils (%) (Auto) , Differential Total Cells Counted 100, Neutrophils % (Manual) 96H, Lymphocytes % (Manual) 2L, Monocytes % (Manual) 0L, Eosinophils % (Manual) 2, Basophils % (Manual) 0, Band Neutrophils 0, Platelet Estimate Adequate, Platelet Morphology Normal, Red Blood Cell Morphology Normal, Sodium Level 136, Potassium Level 4.4, Chloride Level 105, Carbon Dioxide Level 30, Anion Gap 1L, Blood Urea Nitrogen 17, Creatinine 0.7, Estimat Glomerular Filtration Rate > 60, Glucose Level 352#H , Calcium Level 7.4L, Phosphorus Level 2.2L, Magnesium Level 2.2, Total Bilirubin 0.4, Aspartate Amino Transf (AST/SGOT) 20, Alanine Aminotransferase (ALT/SGPT) 13, Alkaline Phosphatase 116, C-Reactive Protein, Quantitative 47.0H, Pro-B-Type Natriuretic Peptide 393H, Total Protein 5.5L, Albumin 1.1L, Globulin 4.4, Albumin/Globulin Ratio 0.2L, Triglycerides Level 270H 08/02/20 08:36: Arterial Blood pH 7.321L, Arterial Blood Partial Pressure CO2 62.3*H, Arterial Blood Partial Pressure O2 70.5L, Arterial Blood HCO3 31.5H, Arterial Blood Oxygen Saturation 94.5L, Arterial Blood Base Excess 3.8H, Francisco Test Positive Current Medications Medications (Trade) Dose Ordered Sig/Dalia Route PRN Reason Start Time Stop Time Status Last Admin Dose Admin Acetaminophen (Tylenol) 500 mg Q6H PRN ORAL Mild Pain (Pain Scale 1-3) 07/21/20 08:15 08/20/20 08:14 08/01/20 05:39 Acetaminophen (Tylenol) 650 mg Q6H PRN NG Temp >100.5 08/01/20 10:30 08/31/20 10:29 08/01/20 10:31 Ascorbic Acid (Vitamin C) 500 mg EVERY 12 HOURS NG 08/02/20 21:00 08/22/20 08:59 Chlorhexidine Gluconate (Hiral-Hex 2%) 1 applic DAILY@1999 TOPIC 07/30/20 20:00 10/28/20 19:59 08/01/20 20:23 Dextrose (Dextrose 50%) 25 ml Q30M PRN IV Hypoglycemia 07/21/20 13:30 10/19/20 13:29 Dextrose (Dextrose 50%) 50 ml Q30M PRN IV Hypoglycemia 07/21/20 13:30 10/19/20 13:29 Dopamine HCl/ Dextrose 250 ml @ 0 mls/hr Q24H IV 08/02/20 00:00 08/05/20 01:29 08/02/20 04:00 Enoxaparin Sodium (Lovenox) 40 mg DAILY SUBQ 07/22/20 09:00 10/20/20 08:59 08/02/20 09:12 Fentanyl Citrate 250 ml @ 0 mls/hr Q24H IV 07/31/20 16:30 08/02/20 16:29 08/02/20 10:08 Guaifenesin (Robitussin) 200 mg Q4H PRN ORAL For Cough 07/25/20 12:30 10/23/20 12:29 07/29/20 09:32 Insulin Aspart (NovoLOG) EVERY 4 HOURS SUBQ 07/31/20 09:00 10/19/20 16:29 08/02/20 12:43 Insulin Detemir (Levemir) 20 units EVERY 12 HOURS SUBQ 08/02/20 09:00 10/19/20 20:59 08/02/20 09:41 Lorazepam (Ativan 2mg/ml 1ml) 1 mg Q4H PRN IV For Anxiety 07/29/20 17:15 08/05/20 17:14 08/02/20 05:58 Methylprednisolone Sodium Succinate (Solu-MEDROL) 40 mg EVERY 12 HOURS IVP 08/01/20 12:45 10/30/20 12:44 08/02/20 09:13 Mirtazapine (Remeron) 15 mg BEDTIME ORAL 07/22/20 21:00 10/20/20 20:59 08/01/20 21:29 Pantoprazole (Protonix) 40 mg DAILY IVP 07/30/20 09:00 08/29/20 08:59 08/02/20 09:13 Piperacillin Sod/ Tazobactam Sod 3.375 gm/Sodium Chloride 110 ml @ 27.5 mls/hr EVERY 8 HOURS IVPB 07/30/20 12:00 08/07/20 11:59 08/02/20 13:22 Propofol 100 ml @ 0 mls/hr Q12H IV 07/31/20 16:30 08/02/20 16:29 08/02/20 10:33 Sodium Chloride 1,000 ml @ 75 mls/hr [id number] IV 07/29/20 22:30 08/28/20 22:29 08/02/20 05:22 Assessment/Plan Assessment/Plan Assessment/Plan 1. COVID-19 pneumonia/Respiratory Failure - On Decadron - on remdesivir per ID specialist - Intubated - On AC mode; FiO2 100 %; PEEP 15 - ABG reviewed - On dopamine; Central line in place - on propofol and fentanyl - will monitor for elevated TG's - CXR 07/24 Marked worsening of bilateral infiltrates 2. Elevated inflammatory markers. 3. Diabetes mellitus. -On insulin as needed 4. DVT prophylaxis - On Lovenox 08/02/20 Has worsening leucocytosis ABG 7.32/62/70 Continue vent as is; FiO2 100%; PEEP 15 Pradeep Fiore MD, MD Aug 02, 2020 14:06
--- NOTE | 2020-08-02 14:20 | NUR ---
CASE MANAGEMENT:REVIEW SI;COVID PNEUMONIA RESPIRATORY FAILURE ~ INTUBATED 98.9 105 29 160/73 91% ETT/VENT AC 26 TV 450 PEEP 15 FIO2 100% WBC 27.6 BG 352 CA 7.4 CRP 47.0 ALB 1.1 ABG pH 7.321 pCO2 62.3 pO2 70.5 HCO3 31.5 O2 SAT 94.5 IS;DOPAMINE GTT IV SOLU-MEDROL IV Q12 PROPOFOL IV Q12 ZOSYN IV Q8 FENTANYL GTT IV IVF NS @ 75 ML/HR LOVENOX SQ Q24 MED SURG STATUS DCP;FROM HOME
[2020-08-02] MEDS ORDERED: propofoL 1,000mg/100ml 100 ML IV SCH (16:30)
--- NOTE | 2020-08-02 19:00 | NUR ---
NURSE NOTES: Received patient from CHARMAINE Mcneill. Patient is observed resting in bed and remains sedated with a RASS score of -2 noted. FLACC score of 0 noted upon assessment. Pt is currently orally intubated et tube size 7.5 noted to be 23 @ lip and pt appears to be tolerating current vent settings well with an O2 saturation of of 96% at this time. Vent settings as follows: AC 26 TV 450 FiO2 100% PEEP 15. Bilateral lower lobe breath sounds noted to be diminished upon auscultation with rhonchi noted in bilateral upper lobes. Pt noted to be SR on tele monitor with a HR of 92, BP remains stable at this time. L FA 20g IV Catheter and R Femoral TLC noted which remain asymptomatic, intact and patent. Central line dressing remains clean, dry and intact. NS is currently infusing at 75mL/hr as ordered, Fentanyl infusing at 240mcg/hr, Propofol infusing at 40 mcg/kg/min and Dopamine infusing at 6mcg/kg/min. Current drips noted to be therapeutic at this time. Active bowel sounds noted in all four quadrants; abdomen remains flat, soft and nontender. OG tube noted which remains secured and patent with Vital AF currently infusing at 35mL/hr as ordered with no residual noted. Miranda catheter noted which continues to drain urine by gravity. Diagnostics reviewed at bedside. Skin remains intact. Bilateral soft wrist restraints remain in place for pt safety. Pt noted to be attempting to pull medical devices despite pt education. CMS remains intact. Will continue to assess pt for removal criteria. Fall, Aspiration and Skin precautions observed. Pt repositioned for comfort and safety. Pt remains resting in bed; Bed remains in the lowest position with the safety wheels engaged, call light within reach, side rails up x3 and bed alarm activated. Will continue plan of care. Will continue to monitor.
--- NOTE | 2020-08-02 19:10 | NUR ---
NURSE HAND-OFF REPORT: Latest Vital Signs: Temperature 98.5 , Pulse 84 , B/P 103 /50 , Respiratory Rate 26 , O2 SAT 95 , Mechanical Ventilator, O2 Flow Rate . Vital Sign Comment: On fentanyl and propofol drip. EKG Rhythm: Sinus Rhythm Rhythm change?: N Latest Van Fall Score: 50 Fall Risk: High Risk Safety Measures: Call light Within Reach, Bed Alarm Zone 1, Side Rails Side Rails x3, Bed position Low and Locked. Fall Precautions: Yellow Socks Door Sign Patient Fall Education Report given to Laquita Dixon RN.
[2020-08-02] MEDS: Ascorbic Acid 500mg tab NG SCH (20:32)
[2020-08-02] MEDS: Dyna-Hex 2% Top Sol 2oz TOPIC SCH (20:32)
--- NOTE | 2020-08-02 20:40 | NUR ---
NURSE NOTES: Wasted 6.38mL per protocol for covid isolation. Witnessed by CHARMAINE Rai
[2020-08-02] MEDS: Acetaminophen 650mg/20.3ml NG PRN (20:46)
--- NOTE | 2020-08-02 21:00 | NUR ---
NURSE NOTES: PRN Tylenol administered as ordered for temperature of 100.6 F, no adverse effects noted. Pt provided with a CHG bed bath, oral care and linen change. Pt appears to continue to tolerate current vent settings well and remains free from s/sx of acute respiratory distress. Physical status remains consistent with previous assessment. Fentanyl, Propofol and Dopamine continue to infuse without incident, no change in rate. RASS score of -2 noted with a FLACC score of 0 noted. Pt remains continues to attempt to pull medical devices despite restraints, bilateral soft wrist restraints remain in place for pt safety. Will continue to provide education, reorient patient and assess for removal criteria. Fall, Aspiration and Skin precautions observed. Pt remains resting in bed; Bed remains in the lowest position with the safety wheels engaged, call light within reach, side rails up x3 and bed alarm activated. Will continue plan of care. Will continue to monitor.
--- NOTE | 2020-08-02 23:37 | Psychiatric Progress Note ---
Psychiatry Progress Note Psychiatry Progress Note Subjective no new changes calm Medications Current Medications Medications (Trade) Dose Ordered Sig/Dalia Route PRN Reason Start Time Stop Time Status Last Admin Dose Admin Acetaminophen (Tylenol) 500 mg Q6H PRN ORAL Mild Pain (Pain Scale 1-3) 07/21/20 08:15 08/20/20 08:14 08/01/20 05:39 Acetaminophen (Tylenol) 650 mg Q6H PRN NG Temp >100.5 08/01/20 10:30 08/31/20 10:29 08/02/20 20:46 Ascorbic Acid (Vitamin C) 500 mg EVERY 12 HOURS NG 08/02/20 21:00 08/22/20 08:59 08/02/20 20:32 Chlorhexidine Gluconate (Hiral-Hex 2%) 1 applic DAILY@1999 TOPIC 07/30/20 20:00 10/28/20 19:59 08/02/20 20:32 Dextrose (Dextrose 50%) 25 ml Q30M PRN IV Hypoglycemia 07/21/20 13:30 10/19/20 13:29 Dextrose (Dextrose 50%) 50 ml Q30M PRN IV Hypoglycemia 07/21/20 13:30 10/19/20 13:29 Dopamine HCl/ Dextrose 250 ml @ 0 mls/hr Q24H IV 08/02/20 00:00 08/05/20 01:29 08/02/20 17:35 Enoxaparin Sodium (Lovenox) 40 mg DAILY SUBQ 07/22/20 09:00 10/20/20 08:59 08/02/20 09:12 Fentanyl Citrate 250 ml @ 0 mls/hr Q24H IV 08/02/20 19:00 08/04/20 18:59 08/02/20 20:35 Guaifenesin (Robitussin) 200 mg Q4H PRN ORAL For Cough 07/25/20 12:30 10/23/20 12:29 07/29/20 09:32 Insulin Aspart (NovoLOG) EVERY 4 HOURS SUBQ 07/31/20 09:00 10/19/20 16:29 08/02/20 20:53 Insulin Detemir (Levemir) 20 units EVERY 12 HOURS SUBQ 08/02/20 09:00 10/19/20 20:59 08/02/20 20:53 Lorazepam (Ativan 2mg/ml 1ml) 1 mg Q4H PRN IV For Anxiety 07/29/20 17:15 08/05/20 17:14 08/02/20 05:58 Methylprednisolone Sodium Succinate (Solu-MEDROL) 40 mg EVERY 12 HOURS IVP 08/01/20 12:45 10/30/20 12:44 08/02/20 20:32 Mirtazapine (Remeron) 15 mg BEDTIME ORAL 07/22/20 21:00 10/20/20 20:59 08/02/20 20:32 Pantoprazole (Protonix) 40 mg DAILY IVP 07/30/20 09:00 08/29/20 08:59 08/02/20 09:13 Piperacillin Sod/ Tazobactam Sod 3.375 gm/Sodium Chloride 110 ml @ 27.5 mls/hr EVERY 8 HOURS IVPB 07/30/20 12:00 08/07/20 11:59 08/02/20 22:20 Propofol 100 ml @ 0 mls/hr Q12H IV 08/02/20 15:23 08/04/20 15:22 08/02/20 20:33 Sodium Chloride 1,000 ml @ 75 mls/hr [id number] IV 07/29/20 22:30 08/28/20 22:29 08/02/20 18:23 Neurological/Psychiatric: Reports: anxiety, depressed, emotional problems Allergies: Coded Allergies: No Known Allergies (Unverified , 07/21/20) Objective Data Height (Feet): 5 Height (Inches): 6.00 Weight (Pounds): 172 General Appearance: no apparent distress Additional Comments: alert, oriented to self, place, situation. Mood is anxious. Affect is blunted, congruent with mood. Thought process is concrete. Thought content, no suicidal or homicidal ideation. Cognition is intact. Insight and judgment fair. Assessment/Plan [place] I: ASSESSMENT: [place] I Anxiety disorder. [place] II Deferred. [place] III As above. [place] IV Low. [place] V 20 PLAN: 1. We will continue current medication. 2. Provide the patient with reality orientation and supportive therapy. Status: progressing Status Narrative ASSESSMENT: [place] I Anxiety disorder. [place] II Deferred. [place] III As above. [place] IV Low. [place] V 20 PLAN: 1. We will continue current medication. 2. Provide the patient with reality orientation and supportive therapy. Assessment/Plan: ASSESSMENT: [place] I Anxiety disorder. [place] II Deferred. [place] III As above. [place] IV Low. [place] V 20 PLAN: 1. We will continue current medication. 2. Provide the patient with reality orientation and supportive therapy. Ron Bridges MD Aug 02, 2020 23:37
[2020-08-03] VITALS (51 sets, daily range): BP systolic 95–151; BP diastolic 48–64
--- NOTE | 2020-08-03 01:00 | NUR ---
NURSE NOTES: Bedside physical assessment performed. Pt appears to continue to tolerate current vent settings well and remains free from s/sx of acute respiratory distress. BP remains stable. Physical status remains consistent with previous assessment. Fentanyl and Propofol continue to infuse without incident, no change in rate. Dopamine titrated to 2 mcg/kg/min without incident. Will continue to monitor and titrate accordingly. RASS score of -2 noted with a FLACC score of 0 noted. Will continue to assess pt for restraint removal criteria. No adverse events. Fall, Aspiration and Skin precautions observed. Pt remains resting in bed; Bed remains in the lowest position with the safety wheels engaged, call light within reach, side rails up x3 and bed alarm activated. Will continue plan of care. Will continue to monitor.
[2020-08-03] MEDS: NovoLOG Insulin Flexpen SUBQ SCH ×5 (01:10→17:31)
[2020-08-03] MEDS: propofoL 1,000mg/100ml 100 ML IV SCH ×5 (01:47→21:25)
--- NOTE | 2020-08-03 01:50 | NUR ---
NURSE NOTES: Wasted 1.6mL of propofol per protocol for covid isolation. Witnessed by CHARMAINE Webb
--- NOTE | 2020-08-03 03:00 | NUR ---
NURSE NOTES: Pt noted to be resting comfortably. Bedside physical assessment performed. Pt appears to continue to tolerate current vent settings well and remains free from s/sx of acute respiratory distress. BP remains stable. Physical status remains consistent with previous assessment. Fentanyl, Propofol and Dopamine continue to infuse without incident, no change in rate. RASS score of -2 noted with a FLACC score of 0 noted. Will continue to assess pt for restraint removal criteria. No adverse events. Fall, Aspiration and Skin precautions observed. Pt remains resting in bed; Bed remains in the lowest position with the safety wheels engaged, call light within reach, side rails up x3 and bed alarm activated. Will continue plan of care. Will continue to monitor.
--- NOTE | 2020-08-03 05:00 | NUR ---
NURSE NOTES: Pt noted to be resting comfortably. Bedside physical assessment performed. Pt appears to continue to tolerate current vent settings well and remains free from s/sx of acute respiratory distress. BP remains stable. Physical status remains consistent with previous assessment. Fentanyl, Propofol continue to infuse without incident, no change in rate. Dopamine titrated down and now held; will continue to reassess and monitor patient. Will reinitiate infusion if pt becomes hemodynamically unstable. RASS score of -2 noted with a FLACC score of 0 noted. Will continue to assess pt for restraint removal criteria. No adverse events. Fall, Aspiration and Skin precautions observed. Pt remains resting in bed; Bed remains in the lowest position with the safety wheels engaged, call light within reach, side rails up x3 and bed alarm activated. Will continue plan of care. Will continue to monitor.
[2020-08-03 06:07] LABS: HEMATOCRIT 32.1 % (42.0-52.0); HEMOGLOBIN 10.6 G/DL (14.2-18.0); MEAN CORPUSCULAR VOLUME 91 FL (80-99); PLATELET COUNT 171 K/UL (150-450); RED BLOOD COUNT 3.52 M/UL (4.70-6.10); RED CELL DISTRIBUTION WIDTH 14.4 % (11.6-14.8); WHITE BLOOD COUNT 16.2 K/UL (4.8-10.8)
--- NOTE | 2020-08-03 06:11 | NUR ---
NURSE NOTES: Wasted 30.1mL of propofol per protocol for covid isolation. 23mL of waste used to prime new tubing, replaced tubing per protocol. Witnessed by CHARMAINE Webb Wasted 24mL Fentanyl per protocol for covid isolation. Witnessed by CHARMAINE Webb
[2020-08-03] MEDS: Piperacillin/Tazobactam 3.375 GM in NS 110 ML IVPB SCH ×3 (06:14→21:25)
[2020-08-03] MEDS: fentaNYL 2500mcg/NS 250ml 250 ML IV SCH ×2 (06:16→16:23)
[2020-08-03 06:45] LABS: ALANINE AMINOTRANSFERASE 12 U/L (12-78); ALBUMIN 1.1 G/DL (3.4-5.0); ALBUMIN/GLOBULIN RATIO 0.3 (1.0-2.7); ALKALINE PHOSPHATASE 99 U/L (46-116); ANION GAP 0 mmol/L (5-15); ASPARTATE AMINO TRANSFERASE 22 U/L (15-37); BILIRUBIN,TOTAL 0.2 MG/DL (0.2-1.0); BLOOD UREA NITROGEN 22 mg/dL (7-18); CALCIUM 7.4 MG/DL (8.5-10.1); CARBON DIOXIDE 33 MMOL/L (21-32); CHLORIDE 110 MMOL/L (98-107); CREATININE 0.7 MG/DL (0.55-1.30); SODIUM 143 MMOL/L (136-145); TRIGLYCERIDES 245 MG/DL (30-150)
--- NOTE | 2020-08-03 07:15 | Cardiac Electrophysiology PN ---
Assessment/Plan Assessment/Plan 1. Troponin elevation. Due to stress of respiratory failure in this patient with COVID pneumonia. EF 65% 2. COVID pneumonia and respiratory failure. The patient is on the ventilator with 100% FiO2 and PEEP of 15. Reintubated 07/31/20 3. Hypotension and bradycardia. Now off dopamine 4. Sepsis. On Zosyn per Dr. Christian Caraballo. 5. Diabetes. Further evaluation and management. SARANYA RN in ICU Subjective Subjective Self extubated and reintubated in ICU on the Vent with 100% Fio2 and PEEP 15 and now off Dopamine HR 70s on fentanyl and propofol drip Objective Last 24 Hour Vital Signs Date Time Temp Pulse Resp B/P (MAP) Pulse Ox O2 Delivery O2 Flow Rate FiO2 08/03/20 07:00 97 24 127/64 (85) 99 08/03/20 06:30 86 26 107/54 (71) 98 08/03/20 06:16 26 119/54 Mechanical Ventilator 100 08/03/20 06:16 26 119/54 Mechanical Ventilator 100 08/03/20 06:00 94 25 119/54 (75) 98 08/03/20 06:00 26 119/54 Mechanical Ventilator 100 08/03/20 05:31 26 132/56 Mechanical Ventilator 100 08/03/20 05:30 99 25 132/56 (81) 98 08/03/20 05:00 101 24 115/51 (72) 97 08/03/20 05:00 26 115/51 Mechanical Ventilator 100 08/03/20 04:45 96 23 112/54 (73) 97 08/03/20 04:31 26 112/48 Mechanical Ventilator 100 08/03/20 04:30 112/48 08/03/20 04:30 96 24 112/48 (69) 96 08/03/20 04:00 100 08/03/20 04:00 98.8 82 26 116/51 (72) 98 08/03/20 04:00 26 116/51 Mechanical Ventilator 100 08/03/20 04:00 116/51 08/03/20 04:00 Mechanical Ventilator 08/03/20 03:43 85 08/03/20 03:31 26 121/53 Mechanical Ventilator 100 08/03/20 03:30 81 26 121/53 (75) 99 08/03/20 03:11 84 26 100 08/03/20 03:00 26 121/53 Mechanical Ventilator 100 08/03/20 03:00 117/53 08/03/20 03:00 83 26 117/53 (74) 98 08/03/20 02:31 26 137/55 Mechanical Ventilator 100 08/03/20 02:30 81 26 137/55 (82) 97 08/03/20 02:00 26 121/56 Mechanical Ventilator 100 08/03/20 02:00 121/56 08/03/20 02:00 82 26 121/56 (77) 96 08/03/20 01:47 26 112/53 Mechanical Ventilator 100 08/03/20 01:31 26 112/53 Mechanical Ventilator 100 08/03/20 01:30 81 26 112/53 (72) 95 08/03/20 01:00 83 24 95/48 (64) 93 08/03/20 01:00 26 95/48 Mechanical Ventilator 100 08/03/20 01:00 95/48 08/03/20 00:45 78 25 121/54 (76) 97 08/03/20 00:31 26 129/52 Mechanical Ventilator 100 08/03/20 00:30 129/52 08/03/20 00:30 76 25 129/52 (77) 97 08/03/20 00:00 100 08/03/20 00:00 26 124/51 Mechanical Ventilator 100 08/03/20 00:00 124/51 08/03/20 00:00 99.0 77 25 124/51 (75) 97 08/03/20 00:00 Mechanical Ventilator 08/02/20 23:34 83 08/02/20 23:31 26 132/58 Mechanical Ventilator 100 08/02/20 23:30 85 25 132/58 (82) 97 08/02/20 23:14 80 26 100 08/02/20 23:00 91 24 119/49 (72) 96 08/02/20 23:00 26 119/49 Mechanical Ventilator 100 08/02/20 23:00 119/49 08/02/20 22:31 26 115/53 Mechanical Ventilator 100 08/02/20 22:30 88 25 115/53 (73) 96 08/02/20 22:00 89 25 120/52 (74) 96 08/02/20 22:00 26 120/52 Mechanical Ventilator 100 08/02/20 22:00 120/52 08/02/20 21:31 26 114/50 Mechanical Ventilator 100 08/02/20 21:30 88 26 114/50 (71) 96 08/02/20 21:16 99.4 08/02/20 21:00 26 108/49 Mechanical Ventilator 100 08/02/20 21:00 108/49 08/02/20 21:00 86 26 108/49 (68) 96 08/02/20 20:35 26 118/52 Mechanical Ventilator 100 08/02/20 20:33 26 118/52 Mechanical Ventilator 100 08/02/20 20:31 26 119/56 Mechanical Ventilator 100 08/02/20 20:30 90 26 119/56 (77) 97 08/02/20 20:00 100.6 85 26 118/52 (74) 97 08/02/20 20:00 Mechanical Ventilator 08/02/20 20:00 118/52 08/02/20 20:00 26 118/52 Mechanical Ventilator 100 08/02/20 20:00 100 08/02/20 19:38 84 08/02/20 19:31 26 117/49 Mechanical Ventilator 100 08/02/20 19:30 85 26 117/49 (71) 96 08/02/20 19:00 84 26 103/50 (67) 95 08/02/20 19:00 89 26 100 08/02/20 19:00 103/50 08/02/20 19:00 26 103/50 Mechanical Ventilator 100 08/02/20 18:31 26 129/55 Mechanical Ventilator 100 08/02/20 18:30 76 26 129/55 (79) 96 08/02/20 18:00 137/56 08/02/20 18:00 26 137/56 Mechanical Ventilator 100 08/02/20 18:00 80 26 137/56 (83) 96 08/02/20 17:35 125/54 08/02/20 17:31 26 125/54 Mechanical Ventilator 100 08/02/20 17:30 78 26 125/54 (77) 96 08/02/20 17:00 80 26 114/50 (71) 95 08/02/20 17:00 114/50 08/02/20 17:00 26 114/50 Mechanical Ventilator 100 08/02/20 16:31 26 126/52 Mechanical Ventilator 100 08/02/20 16:30 80 26 126/52 (76) 96 08/02/20 16:00 100 12/24/20 16:00 98.5 80 26 122/54 (76) 96 08/02/20 16:00 122/54 08/02/20 16:00 25 122/54 Mechanical Ventilator 100 08/02/20 16:00 Mechanical Ventilator 08/02/20 15:31 23 123/51 Mechanical Ventilator 100 08/02/20 15:30 26 123/55 Mechanical Ventilator 100 08/02/20 15:30 86 26 123/55 (77) 96 08/02/20 15:25 86 08/02/20 15:08 80 26 100 08/02/20 15:00 79 26 123/51 (75) 96 08/02/20 15:00 123/51 08/02/20 15:00 26 123/51 Mechanical Ventilator 100 08/02/20 15:00 26 123/51 Mechanical Ventilator 100 08/02/20 14:00 120/54 08/02/20 14:00 26 120/54 Mechanical Ventilator 100 08/02/20 14:00 24 120/54 Mechanical Ventilator 100 08/02/20 14:00 82 26 120/54 (76) 96 08/02/20 13:00 90 25 124/51 (75) 95 08/02/20 13:00 124/51 08/02/20 13:00 25 124/51 Mechanical Ventilator 100 08/02/20 13:00 25 124/51 Mechanical Ventilator 100 08/02/20 12:30 89 24 132/55 (80) 95 08/02/20 12:15 91 25 122/55 (77) 95 08/02/20 12:00 98.2 92 24 120/55 (76) 95 08/02/20 12:00 120/55 08/02/20 12:00 24 120/55 Mechanical Ventilator 100 08/02/20 12:00 24 120/55 Mechanical Ventilator 100 08/02/20 12:00 100 08/02/20 12:00 Mechanical Ventilator 08/02/20 11:26 97 08/02/20 11:01 89 26 100 08/02/20 11:00 116/54 08/02/20 11:00 26 116/54 Mechanical Ventilator 100 08/02/20 11:00 26 116/54 Mechanical Ventilator 100 08/02/20 11:00 94 26 116/54 (74) 95 08/02/20 10:45 94 23 120/58 (78) 95 08/02/20 10:33 24 118/55 Mechanical Ventilator 100 08/02/20 10:08 24 124/58 Mechanical Ventilator 100 08/02/20 10:00 95 25 124/58 (80) 95 08/02/20 10:00 124/58 08/02/20 10:00 24 124/58 Mechanical Ventilator 100 08/02/20 10:00 25 124/58 Mechanical Ventilator 100 08/02/20 09:00 95 24 112/56 (74) 95 08/02/20 09:00 112/56 08/02/20 09:00 24 112/56 Mechanical Ventilator 100 08/02/20 09:00 24 112/56 Mechanical Ventilator 100 08/02/20 08:23 96 08/02/20 08:00 98.0 90 23 118/55 (76) 95 08/02/20 08:00 100 08/02/20 08:00 118/55 08/02/20 08:00 23 118/55 Mechanical Ventilator 100 08/02/20 08:00 23 118/55 Mechanical Ventilator 100 08/02/20 08:00 Mechanical Ventilator Intake and Output 08/02/20 08/03/20 19:00 07:00 Intake Total 2475.806 ml 1978.021 ml Output Total 520 ml 610 ml Balance 1955.806 ml 1368.021 ml Free Water 60 ml IV Total 1995.806 ml 1498.021 ml Tube Feeding 420 ml 420 ml Other 60 ml Output Urine Total 520 ml 610 ml Laboratory Tests Test 08/02/20 08:36 08/02/20 12:29 08/02/20 17:44 08/02/20 20:48 Arterial Blood pH 7.321 (7.350-7.450) Arterial Blood Partial Pressure CO2 62.3 mmHg (35.0-45.0) *H Arterial Blood Partial Pressure O2 70.5 mmHg (75.0-100.0) L Arterial Blood HCO3 31.5 mmol/L (22.0-26.0) H Arterial Blood Oxygen Saturation 94.5 % (95-100) L Arterial Blood Base Excess 3.8 (-2-2) H [place] Test Positive POC Whole Blood Glucose 300 MG/DL (74-106) H 208 MG/DL (74-106) H 238 MG/DL (74-106) H Test 08/03/20 03:45 08/03/20 04:08 White Blood Count 16.2 K/UL (4.8-10.8) H Red Blood Count 3.52 M/UL (4.70-6.10) L Hemoglobin 10.6 G/DL (14.2-18.0) L Hematocrit 32.1 % (42.0-52.0) L Mean Corpuscular Volume 91 FL (80-99) Mean Corpuscular Hemoglobin 30.1 PG (27.0-31.0) Mean Corpuscular Hemoglobin Concent 33.0 G/DL (32.0-36.0) Red Cell Distribution Width 14.4 % (11.6-14.8) Platelet Count 171 K/UL (150-450) Mean Platelet Volume 7.0 FL (6.5-10.1) Neutrophils (%) (Auto) % (45.0-75.0) Lymphocytes (%) (Auto) % (20.0-45.0) Monocytes (%) (Auto) % (1.0-10.0) Eosinophils (%) (Auto) % (0.0-3.0) Basophils (%) (Auto) % (0.0-2.0) Neutrophils % (Manual) Pending Lymphocytes % (Manual) Pending Platelet Estimate Pending Platelet Morphology Pending Sodium Level 143 MMOL/L (136-145) Potassium Level 4.0 MMOL/L (3.5-5.1) Chloride Level 110 MMOL/L (98-107) H Carbon Dioxide Level 33 MMOL/L (21-32) H Anion Gap 0 mmol/L (5-15) L Blood Urea Nitrogen 22 mg/dL (7-18) H Creatinine 0.7 MG/DL (0.55-1.30) Estimat Glomerular Filtration Rate > 60 mL/min (>60) Glucose Level 194 MG/DL (74-106) #H Calcium Level 7.4 MG/DL (8.5-10.1) L Total Bilirubin 0.2 MG/DL (0.2-1.0) Aspartate Amino Transf (AST/SGOT) 22 U/L (15-37) Alanine Aminotransferase (ALT/SGPT) 12 U/L (12-78) Alkaline Phosphatase 99 U/L (46-116) Total Protein 5.3 G/DL (6.4-8.2) L Albumin 1.1 G/DL (3.4-5.0) L Globulin 4.2 g/dL Albumin/Globulin Ratio 0.3 (1.0-2.7) L Triglycerides Level 245 MG/DL (30-150) H POC Whole Blood Glucose Pending Objective HEAD AND NECK: Orally intubated. LUNGS: Decreased breath sounds and coarse rhonchi. CARDIOVASCULAR: Regular S1 and S2 with no gallop or murmur. ABDOMEN: Soft. EXTREMITIES: No pitting edema. Jeancarlos Carranza MD Aug 03, 2020 07:15
--- NOTE | 2020-08-03 07:17 | NUR ---
NURSE HAND-OFF REPORT: Latest Vital Signs: Temperature 98.8 , Pulse 93 , B/P 127 /64 , Respiratory Rate 28 , O2 SAT 99 , Mechanical Ventilator, O2 Flow Rate . Vital Sign Comment: EKG Rhythm: Sinus Rhythm Rhythm change?: N MD Notified?: - MD Response: Latest Van Fall Score: 50 Fall Risk: High Risk Safety Measures: Call light Within Reach, Bed Alarm Zone 2, Side Rails Side Rails x3, Bed position Low and Locked. Fall Precautions: Yellow Socks Door Sign Patient Fall Education Report given to CHARMAINE Mcneill.
--- NOTE | 2020-08-03 07:18 | NUR ---
NURSE NOTES: Patient is observed resting in bed and remains lightly sedated with a RASS score of -2 noted. FLACC score of 0 noted upon assessment. Patient is currently orally intubated ET tube size 7.5 noted to be 23 @ lip and pt appears to be tolerating current vent settings well with an O2 saturation of of 96% at this time. Vent settings as follows: AC 26 TV 450 FiO2 100% PEEP 15. Bilateral lower lobe breath sounds noted to be diminished upon auscultation with rhonchi noted in bilateral upper lobes. Patient noted to be Sinus Rhythm on youth nutritional monitor with a Heart rate of 81, Blood Pressure remains stable at this time. Left FA 20g IV Catheter and R Femoral TLC noted which remain asymptomatic, intact and patent. Central line dressing remains clean, dry and intact. NS is currently infusing at 75mL/hr as ordered, Fentanyl infusing at 240mcg/hr, Propofol infusing at 40 mcg/kg/min Current drips noted to be therapeutic at this time. Active bowel sounds noted in all four quadrants; abdomen remains flat, soft and nontender. OG tube noted which remains secured and patent with Vital AF currently infusing at 35mL/hr as ordered with no residual noted. Miranda catheter noted which continues to drain urine by gravity. Diagnostics reviewed at bedside. Skin remains intact. Bilateral soft wrist restraints remain in place for pt safety. Patient noted to be attempting to pull medical devices despite patient education. CMS remains intact. Will continue to assess pt for removal criteria. Fall, Aspiration and Skin precautions observed. Patient repositioned for comfort and safety. Patient remains resting in bed; Bed remains in the lowest position with the safety wheels engaged, call light within reach, side rails up x3 and bed alarm activated. Airborne isolation observed. Will continue plan of care.
[2020-08-03] MEDS: Pantoprazole Inj IVP SCH (08:03)
[2020-08-03] MEDS: Ascorbic Acid 500mg tab NG SCH ×2 (08:03→20:28)
[2020-08-03] MEDS: Enoxaparin 40mg Inj SUBQ SCH (08:04)
[2020-08-03] MEDS: Solu-MEDROL 40mg Inj IVP SCH ×2 (08:04→20:28)
--- NOTE | 2020-08-03 09:00 | NUR ---
NURSE NOTES: Oral care provided.
[2020-08-03] MEDS: Levemir Flexpen SUBQ SCH ×2 (09:04→21:53)
--- NOTE | 2020-08-03 11:00 | NUR ---
NURSE NOTES: No signs and symptoms of hypoglycemia.
--- NOTE | 2020-08-03 12:10 | NUR ---
NURSE NOTES: Dr. Monique at bedside.
--- NOTE | 2020-08-03 12:40 | Pulmonology Progress Note ---
Subjective ROS Limited/Unobtainable: Yes Interval Events: s/p intubation, sedation, now in ICU Constitutional: Denies: fever HEENT: Repors: no symptoms Respiratory: Reports: no symptoms, dry cough Cardiovascular: Reports: no symptoms; Denies: chest pain, palpitations Gastrointestinal/Abdominal: Reports: no symptoms Musculoskeletal: Reports: other - legs cramps Allergies: Coded Allergies: No Known Allergies (Unverified , 07/21/20) All Systems: reviewed and negative except above Objective Last 24 Hour Vital Signs Date Time Temp Pulse Resp B/P (MAP) Pulse Ox O2 Delivery O2 Flow Rate FiO2 08/03/20 12:00 Mechanical Ventilator 08/03/20 12:00 26 128/50 Mechanical Ventilator 100 08/03/20 12:00 100 08/03/20 12:00 99.0 77 26 128/50 (76) 97 08/03/20 11:33 83 08/03/20 11:33 24 133/56 Mechanical Ventilator 100 08/03/20 11:31 26 133/56 Mechanical Ventilator 100 08/03/20 11:30 84 26 133/56 (81) 97 08/03/20 11:00 85 26 116/54 (74) 97 08/03/20 11:00 26 116/54 Mechanical Ventilator 100 08/03/20 10:54 87 28 100 08/03/20 10:31 25 130/55 Mechanical Ventilator 100 08/03/20 10:30 88 25 130/55 (80) 98 08/03/20 10:00 83 25 131/52 (78) 98 08/03/20 10:00 25 131/52 Mechanical Ventilator 100 08/03/20 09:31 25 123/56 Mechanical Ventilator 100 08/03/20 09:30 88 25 123/56 (78) 98 08/03/20 09:00 85 25 128/56 (80) 98 08/03/20 09:00 25 128/56 Mechanical Ventilator 100 08/03/20 08:31 25 124/55 Mechanical Ventilator 100 08/03/20 08:30 86 25 124/55 (78) 98 08/03/20 08:00 100 08/03/20 08:00 24 126/59 Mechanical Ventilator 100 08/03/20 08:00 Mechanical Ventilator 08/03/20 08:00 99.0 92 24 126/59 (81) 99 08/03/20 07:55 92 12/25/20 07:31 26 120/52 Mechanical Ventilator 100 08/03/20 07:30 86 26 120/52 (74) 99 08/03/20 07:05 93 28 100 08/03/20 07:00 97 24 127/64 (85) 99 08/03/20 07:00 26 127/64 Mechanical Ventilator 100 08/03/20 06:31 26 107/54 Mechanical Ventilator 100 08/03/20 06:30 86 26 107/54 (71) 98 08/03/20 06:16 26 119/54 Mechanical Ventilator 100 08/03/20 06:16 26 119/54 Mechanical Ventilator 100 08/03/20 06:00 94 25 119/54 (75) 98 08/03/20 06:00 26 119/54 Mechanical Ventilator 100 08/03/20 05:31 26 132/56 Mechanical Ventilator 100 08/03/20 05:30 99 25 132/56 (81) 98 08/03/20 05:00 101 24 115/51 (72) 97 08/03/20 05:00 26 115/51 Mechanical Ventilator 100 08/03/20 04:45 96 23 112/54 (73) 97 08/03/20 04:31 26 112/48 Mechanical Ventilator 100 08/03/20 04:30 112/48 08/03/20 04:30 96 24 112/48 (69) 96 08/03/20 04:00 100 08/03/20 04:00 98.8 82 26 116/51 (72) 98 08/03/20 04:00 26 116/51 Mechanical Ventilator 100 08/03/20 04:00 116/51 08/03/20 04:00 Mechanical Ventilator 08/03/20 03:43 85 08/03/20 03:31 26 121/53 Mechanical Ventilator 100 08/03/20 03:30 81 26 121/53 (75) 99 08/03/20 03:11 84 26 100 08/03/20 03:00 26 121/53 Mechanical Ventilator 100 08/03/20 03:00 117/53 08/03/20 03:00 83 26 117/53 (74) 98 08/03/20 02:31 26 137/55 Mechanical Ventilator 100 08/03/20 02:30 81 26 137/55 (82) 97 08/03/20 02:00 26 121/56 Mechanical Ventilator 100 08/03/20 02:00 121/56 08/03/20 02:00 82 26 121/56 (77) 96 08/03/20 01:47 26 112/53 Mechanical Ventilator 100 08/03/20 01:31 26 112/53 Mechanical Ventilator 100 08/03/20 01:30 81 26 112/53 (72) 95 08/03/20 01:00 83 24 95/48 (64) 93 08/03/20 01:00 26 95/48 Mechanical Ventilator 100 08/03/20 01:00 95/48 08/03/20 00:45 78 25 121/54 (76) 97 08/03/20 00:31 26 129/52 Mechanical Ventilator 100 08/03/20 00:30 129/52 08/03/20 00:30 76 25 129/52 (77) 97 08/03/20 00:00 100 08/03/20 00:00 26 124/51 Mechanical Ventilator 100 08/03/20 00:00 124/51 08/03/20 00:00 99.0 77 25 124/51 (75) 97 08/03/20 00:00 Mechanical Ventilator 08/02/20 23:34 83 08/02/20 23:31 26 132/58 Mechanical Ventilator 100 08/02/20 23:30 85 25 132/58 (82) 97 08/02/20 23:14 80 26 100 08/02/20 23:00 91 24 119/49 (72) 96 08/02/20 23:00 26 119/49 Mechanical Ventilator 100 08/02/20 23:00 119/49 08/02/20 22:31 26 115/53 Mechanical Ventilator 100 08/02/20 22:30 88 25 115/53 (73) 96 08/02/20 22:00 89 25 120/52 (74) 96 08/02/20 22:00 26 120/52 Mechanical Ventilator 100 08/02/20 22:00 120/52 08/02/20 21:31 26 114/50 Mechanical Ventilator 100 08/02/20 21:30 88 26 114/50 (71) 96 08/02/20 21:16 99.4 08/02/20 21:00 26 108/49 Mechanical Ventilator 100 08/02/20 21:00 108/49 08/02/20 21:00 86 26 108/49 (68) 96 12/24/20 20:35 26 118/52 Mechanical Ventilator 100 20 20:33 26 118/52 Mechanical Ventilator 100 20 20:31 26 119/56 Mechanical Ventilator 100 20 20:30 90 26 119/56 (77) 97 08/02/20 20:00 100.6 85 26 118/52 (74) 97 08/02/20 20:00 Mechanical Ventilator 08/02/20 20:00 118/52 08/02/20 20:00 26 118/52 Mechanical Ventilator 100 08/02/20 20:00 100 08/02/20 19:38 84 08/02/20 19:31 26 117/49 Mechanical Ventilator 100 08/02/20 19:30 85 26 117/49 (71) 96 08/02/20 19:00 84 26 103/50 (67) 95 08/02/20 19:00 89 26 100 08/02/20 19:00 103/50 08/02/20 19:00 26 103/50 Mechanical Ventilator 100 08/02/20 18:31 26 129/55 Mechanical Ventilator 100 08/02/20 18:30 76 26 129/55 (79) 96 08/02/20 18:00 137/56 08/02/20 18:00 26 137/56 Mechanical Ventilator 100 08/02/20 18:00 80 26 137/56 (83) 96 08/02/20 17:35 125/54 08/02/20 17:31 26 125/54 Mechanical Ventilator 100 08/02/20 17:30 78 26 125/54 (77) 96 08/02/20 17:00 80 26 114/50 (71) 95 08/02/20 17:00 114/50 08/02/20 17:00 26 114/50 Mechanical Ventilator 100 08/02/20 16:31 26 126/52 Mechanical Ventilator 100 08/02/20 16:30 80 26 126/52 (76) 96 08/02/20 16:00 100 08/02/20 16:00 98.5 80 26 122/54 (76) 96 08/02/20 16:00 122/54 08/02/20 16:00 25 122/54 Mechanical Ventilator 100 08/02/20 16:00 Mechanical Ventilator 08/02/20 15:31 23 123/51 Mechanical Ventilator 100 08/02/20 15:30 26 123/55 Mechanical Ventilator 100 08/02/20 15:30 86 26 123/55 (77) 96 08/02/20 15:25 86 08/02/20 15:08 80 26 100 08/02/20 15:00 79 26 123/51 (75) 96 08/02/20 15:00 123/51 08/02/20 15:00 26 123/51 Mechanical Ventilator 100 08/02/20 15:00 26 123/51 Mechanical Ventilator 100 08/02/20 14:00 120/54 08/02/20 14:00 26 120/54 Mechanical Ventilator 100 08/02/20 14:00 24 120/54 Mechanical Ventilator 100 08/02/20 14:00 82 26 120/54 (76) 96 08/02/20 13:00 90 25 124/51 (75) 95 08/02/20 13:00 124/51 08/02/20 13:00 25 124/51 Mechanical Ventilator 100 08/02/20 13:00 25 124/51 Mechanical Ventilator 100 Intake and Output 08/02/20 08/03/20 19:00 07:00 Intake Total 2475.806 ml 2075.302 ml Output Total 520 ml 610 ml Balance 1955.806 ml 1465.302 ml Free Water 60 ml IV Total 1995.806 ml 1595.302 ml Tube Feeding 420 ml 420 ml Other 60 ml Output Urine Total 520 ml 610 ml General Appearance: no acute distress HEENT: normocephalic Respiratory: chest wall non-tender, crackles/rales Cardiovascular: normal peripheral pulses, normal rate Abdomen: normal bowel sounds Extremities: no cyanosis, no clubbing Laboratory Tests 08/02/20 17:44: POC Whole Blood Glucose 208H 08/02/20 20:48: POC Whole Blood Glucose 238H 08/03/20 03:45: White Blood Count 16.2H, Red Blood Count 3.52L, Hemoglobin 10.6L, Hematocrit 32.1L, Mean Corpuscular Volume 91, Mean Corpuscular Hemoglobin 30.1, Mean Corpuscular Hemoglobin Concent 33.0, Red Cell Distribution Width 14.4, Platelet Count 171, Mean Platelet Volume 7.0, Neutrophils (%) (Auto) , Lymphocytes (%) (Auto) , Monocytes (%) (Auto) , Eosinophils (%) (Auto) , Basophils (%) (Auto) , Differential Total Cells Counted 100, Neutrophils % (Manual) 95H, Lymphocytes % (Manual) 3L, Monocytes % (Manual) 2, Eosinophils % (Manual) 0, Basophils % (Manual) 0, Band Neutrophils 0, Platelet Estimate Adequate, Platelet Morphology Normal, Anisocytosis 1+, Sodium Level 143, Potassium Level 4.0, Chloride Level 110H, Carbon Dioxide Level 33H, Anion Gap 0L, Blood Urea Nitrogen 22H, Creatinine 0.7, Estimat Glomerular Filtration Rate > 60, Glucose Level 194#H, Calcium Level 7.4L, Total Bilirubin 0.2, Aspartate Amino Transf (AST/SGOT) 22, Alanine Aminotransferase (ALT/SGPT) 12, Alkaline Phosphatase 99, Total Protein 5.3L, Albumin 1.1L, Globulin 4.2, Albumin/Globulin Ratio 0.3L, Triglycerides Lev el 245H 08/03/20 04:08: POC Whole Blood Glucose [Pending] 08/03/20 08:06: Arterial Blood pH 7.314L, Arterial Blood Partial Pressure CO2 68.8*H, Arterial Blood Partial Pressure O2 87.2, Arterial Blood HCO3 34.2H, Arterial Blood Oxygen Saturation 96.2, Arterial Blood Base Excess 6.2H, Francisco Test Positive 08/03/20 08:14: POC Whole Blood Glucose [Pending] Current Medications Medications (Trade) Dose Ordered Sig/Dalia Route PRN Reason Start Time Stop Time Status Last Admin Dose Admin Acetaminophen (Tylenol) 500 mg Q6H PRN ORAL Mild Pain (Pain Scale 1-3) 07/21/20 08:15 08/20/20 08:14 08/01/20 05:39 Acetaminophen (Tylenol) 650 mg Q6H PRN NG Temp >100.5 08/01/20 10:30 08/31/20 10:29 08/02/20 20:46 Ascorbic Acid (Vitamin C) 500 mg EVERY 12 HOURS NG 08/02/20 21:00 08/22/20 08:59 08/03/20 08:03 Chlorhexidine Gluconate (Hiral-Hex 2%) 1 applic DAILY@1999 TOPIC 07/30/20 20:00 10/28/20 19:59 08/02/20 20:32 Dextrose (Dextrose 50%) 25 ml Q30M PRN IV Hypoglycemia 07/21/20 13:30 10/19/20 13:29 Dextrose (Dextrose 50%) 50 ml Q30M PRN IV Hypoglycemia 07/21/20 13:30 10/19/20 13:29 Dopamine HCl/ Dextrose 250 ml @ 0 mls/hr Q24H IV 08/02/20 00:00 08/05/20 01:29 08/02/20 17:35 Enoxaparin Sodium (Lovenox) 40 mg DAILY SUBQ 07/22/20 09:00 10/20/20 08:59 08/03/20 08:04 Fentanyl Citrate 250 ml @ 0 mls/hr Q24H IV 08/02/20 19:00 08/04/20 18:59 08/03/20 06:16 Guaifenesin (Robitussin) 200 mg Q4H PRN ORAL For Cough 07/25/20 12:30 10/23/20 12:29 07/29/20 09:32 Insulin Aspart (NovoLOG) EVERY 4 HOURS SUBQ 07/31/20 09:00 10/19/20 16:29 08/03/20 09:05 Insulin Detemir (Levemir) 20 units EVERY 12 HOURS SUBQ 08/02/20 09:00 10/19/20 20:59 08/03/20 09:04 Lorazepam (Ativan 2mg/ml 1ml) 1 mg Q4H PRN IV For Anxiety 07/29/20 17:15 08/05/20 17:14 08/02/20 05:58 Methylprednisolone Sodium Succinate (Solu-MEDROL) 40 mg EVERY 12 HOURS IVP 08/01/20 12:45 10/30/20 12:44 08/03/20 08:04 Mirtazapine (Remeron) 15 mg BEDTIME ORAL 07/22/20 21:00 10/20/20 20:59 08/02/20 20:32 Pantoprazole (Protonix) 40 mg DAILY IVP 07/30/20 09:00 08/29/20 08:59 08/03/20 08:03 Piperacillin Sod/ Tazobactam Sod 3.375 gm/Sodium Chloride 110 ml @ 27.5 mls/hr EVERY 8 HOURS IVPB 07/30/20 12:00 08/07/20 11:59 08/03/20 06:14 Propofol 100 ml @ 0 mls/hr Q12H IV 08/02/20 15:23 08/04/20 15:22 08/03/20 11:33 Sodium Chloride 1,000 ml @ 75 mls/hr [id number] IV 07/29/20 22:30 08/28/20 22:29 08/03/20 08:00 Assessment/Plan Assessment/Plan Assessment/Plan 1. COVID-19 pneumonia/Respiratory Failure - On Decadron - on remdesivir per ID specialist - Intubated - On AC mode; FiO2 100 %; PEEP 15 - ABG reviewed - On dopamine; Central line in place - on propofol and fentanyl - will monitor for elevated TG's - CXR 07/24 Marked worsening of bilateral infiltrates 2. Elevated inflammatory markers. 3. Diabetes mellitus. -On insulin as needed 4. DVT prophylaxis - On Lovenox 08/03/20 Had worsening leucocytosis; now improved ABG 7.32/62/70 Continue vent as is; FiO2 100%; PEEP 15 Pradeep Fiore MD, MD Aug 03, 2020 12:40
--- NOTE | 2020-08-03 12:57 | Infectious Diseases Prog Note ---
Assessment/Plan Assessment/Plan IMPRESSION: COVID-19 disease seems to be severe. Diabetes mellitus with hyperglycemia. Hypoxic respiratory failure Lymphocytopenia. Sinus tachycardia Leukocytosis Hypotension ARDS RECOMMENDATION: Continue Methylprednisone Finished remdesivir course Continue Zosyn Case was D/W RN Subjective ROS Limited/Unobtainable: Yes Constitutional: Reports: fever, other - low grade fever last night Neurologic: Reports: other - sedated on restraint Allergies: Coded Allergies: No Known Allergies (Unverified , 07/21/20) Objective Last 24 Hour Vital Signs Date Time Temp Pulse Resp B/P (MAP) Pulse Ox O2 Delivery O2 Flow Rate FiO2 08/03/20 12:31 26 123/51 Mechanical Ventilator 100 08/03/20 12:30 75 26 123/51 (75) 97 08/03/20 12:00 Mechanical Ventilator 08/03/20 12:00 26 128/50 Mechanical Ventilator 100 08/03/20 12:00 100 08/03/20 12:00 99.0 77 26 128/50 (76) 97 08/03/20 11:33 83 08/03/20 11:33 24 133/56 Mechanical Ventilator 100 08/03/20 11:31 26 133/56 Mechanical Ventilator 100 08/03/20 11:30 84 26 133/56 (81) 97 08/03/20 11:00 85 26 116/54 (74) 97 08/03/20 11:00 26 116/54 Mechanical Ventilator 100 08/03/20 10:54 87 28 100 08/03/20 10:31 25 130/55 Mechanical Ventilator 100 08/03/20 10:30 88 25 130/55 (80) 98 08/03/20 10:00 83 25 131/52 (78) 98 08/03/20 10:00 25 131/52 Mechanical Ventilator 100 08/03/20 09:31 25 123/56 Mechanical Ventilator 100 08/03/20 09:30 88 25 123/56 (78) 98 08/03/20 09:00 85 25 128/56 (80) 98 08/03/20 09:00 25 128/56 Mechanical Ventilator 100 08/03/20 08:31 25 124/55 Mechanical Ventilator 100 08/03/20 08:30 86 25 124/55 (78) 98 08/03/20 08:00 100 08/03/20 08:00 24 126/59 Mechanical Ventilator 100 08/03/20 08:00 Mechanical Ventilator 08/03/20 08:00 99.0 92 24 126/59 (81) 99 08/03/20 07:55 92 08/03/20 07:31 26 120/52 Mechanical Ventilator 100 08/03/20 07:30 86 26 120/52 (74) 99 08/03/20 07:05 93 28 100 08/03/20 07:00 97 24 127/64 (85) 99 08/03/20 07:00 26 127/64 Mechanical Ventilator 100 08/03/20 06:31 26 107/54 Mechanical Ventilator 100 08/03/20 06:30 86 26 107/54 (71) 98 08/03/20 06:16 26 119/54 Mechanical Ventilator 100 08/03/20 06:16 26 119/54 Mechanical Ventilator 100 08/03/20 06:00 94 25 119/54 (75) 98 08/03/20 06:00 26 119/54 Mechanical Ventilator 100 08/03/20 05:31 26 132/56 Mechanical Ventilator 100 08/03/20 05:30 99 25 132/56 (81) 98 08/03/20 05:00 101 24 115/51 (72) 97 08/03/20 05:00 26 115/51 Mechanical Ventilator 100 08/03/20 04:45 96 23 112/54 (73) 97 08/03/20 04:31 26 112/48 Mechanical Ventilator 100 08/03/20 04:30 112/48 08/03/20 04:30 96 24 112/48 (69) 96 08/03/20 04:00 100 08/03/20 04:00 98.8 82 26 116/51 (72) 98 08/03/20 04:00 26 116/51 Mechanical Ventilator 100 08/03/20 04:00 116/51 08/03/20 04:00 Mechanical Ventilator 08/03/20 03:43 85 08/03/20 03:31 26 121/53 Mechanical Ventilator 100 08/03/20 03:30 81 26 121/53 (75) 99 08/03/20 03:11 84 26 100 08/03/20 03:00 26 121/53 Mechanical Ventilator 100 08/03/20 03:00 117/53 08/03/20 03:00 83 26 117/53 (74) 98 12/25/20 02:31 26 137/55 Mechanical Ventilator 100 08/03/20 02:30 81 26 137/55 (82) 97 08/03/20 02:00 26 121/56 Mechanical Ventilator 100 08/03/20 02:00 121/56 08/03/20 02:00 82 26 121/56 (77) 96 08/03/20 01:47 26 112/53 Mechanical Ventilator 100 08/03/20 01:31 26 112/53 Mechanical Ventilator 100 08/03/20 01:30 81 26 112/53 (72) 95 08/03/20 01:00 83 24 95/48 (64) 93 08/03/20 01:00 26 95/48 Mechanical Ventilator 100 08/03/20 01:00 95/48 08/03/20 00:45 78 25 121/54 (76) 97 08/03/20 00:31 26 129/52 Mechanical Ventilator 100 08/03/20 00:30 129/52 08/03/20 00:30 76 25 129/52 (77) 97 08/03/20 00:00 100 08/03/20 00:00 26 124/51 Mechanical Ventilator 100 08/03/20 00:00 124/51 08/03/20 00:00 99.0 77 25 124/51 (75) 97 08/03/20 00:00 Mechanical Ventilator 08/02/20 23:34 83 08/02/20 23:31 26 132/58 Mechanical Ventilator 100 08/02/20 23:30 85 25 132/58 (82) 97 08/02/20 23:14 80 26 100 08/02/20 23:00 91 24 119/49 (72) 96 08/02/20 23:00 26 119/49 Mechanical Ventilator 100 08/02/20 23:00 119/49 08/02/20 22:31 26 115/53 Mechanical Ventilator 100 08/02/20 22:30 88 25 115/53 (73) 96 08/02/20 22:00 89 25 120/52 (74) 96 08/02/20 22:00 26 120/52 Mechanical Ventilator 100 08/02/20 22:00 120/52 08/02/20 21:31 26 114/50 Mechanical Ventilator 100 08/02/20 21:30 88 26 114/50 (71) 96 08/02/20 21:16 99.4 08/02/20 21:00 26 108/49 Mechanical Ventilator 100 08/02/20 21:00 108/49 08/02/20 21:00 86 26 108/49 (68) 96 08/02/20 20:35 26 118/52 Mechanical Ventilator 100 08/02/20 20:33 26 118/52 Mechanical Ventilator 100 08/02/20 20:31 26 119/56 Mechanical Ventilator 100 08/02/20 20:30 90 26 119/56 (77) 97 08/02/20 20:00 100.6 85 26 118/52 (74) 97 08/02/20 20:00 Mechanical Ventilator 08/02/20 20:00 118/52 08/02/20 20:00 26 118/52 Mechanical Ventilator 100 08/02/20 20:00 100 08/02/20 19:38 84 08/02/20 19:31 26 117/49 Mechanical Ventilator 100 08/02/20 19:30 85 26 117/49 (71) 96 08/02/20 19:00 84 26 103/50 (67) 95 08/02/20 19:00 89 26 100 08/02/20 19:00 103/50 08/02/20 19:00 26 103/50 Mechanical Ventilator 100 08/02/20 18:31 26 129/55 Mechanical Ventilator 100 08/02/20 18:30 76 26 129/55 (79) 96 08/02/20 18:00 137/56 08/02/20 18:00 26 137/56 Mechanical Ventilator 100 08/02/20 18:00 80 26 137/56 (83) 96 08/02/20 17:35 125/54 08/02/20 17:31 26 125/54 Mechanical Ventilator 100 08/02/20 17:30 78 26 125/54 (77) 96 08/02/20 17:00 80 26 114/50 (71) 95 08/02/20 17:00 114/50 08/02/20 17:00 26 114/50 Mechanical Ventilator 100 08/02/20 16:31 26 126/52 Mechanical Ventilator 100 08/02/20 16:30 80 26 126/52 (76) 96 08/02/20 16:00 100 08/02/20 16:00 98.5 80 26 122/54 (76) 96 08/02/20 16:00 122/54 08/02/20 16:00 25 122/54 Mechanical Ventilator 100 08/02/20 16:00 Mechanical Ventilator 08/02/20 15:31 23 123/51 Mechanical Ventilator 100 08/02/20 15:30 26 123/55 Mechanical Ventilator 100 08/02/20 15:30 86 26 123/55 (77) 96 08/02/20 15:25 86 08/02/20 15:08 80 26 100 08/02/20 15:00 79 26 123/51 (75) 96 08/02/20 15:00 123/51 08/02/20 15:00 26 123/51 Mechanical Ventilator 100 08/02/20 15:00 26 123/51 Mechanical Ventilator 100 08/02/20 14:00 120/54 08/02/20 14:00 26 120/54 Mechanical Ventilator 100 08/02/20 14:00 24 120/54 Mechanical Ventilator 100 08/02/20 14:00 82 26 120/54 (76) 96 08/02/20 13:00 90 25 124/51 (75) 95 08/02/20 13:00 124/51 08/02/20 13:00 25 124/51 Mechanical Ventilator 100 08/02/20 13:00 25 124/51 Mechanical Ventilator 100 Height (Feet): 5 Height (Inches): 6.00 Weight (Pounds): 172 HEENT: other - orally intubated Respiratory/Chest: other - on ventilator, LQD6=306% Cardiovascular: normal rate Abdomen: soft, non tender, other - OG tube Extremities: no edema Neurologic/Psychiatric: other - sedated Laboratory Tests Test 08/02/20 17:44 08/02/20 20:48 08/03/20 03:45 08/03/20 04:08 POC Whole Blood Glucose 208 MG/DL (74-106) H 238 MG/DL (74-106) H Pending White Blood Count 16.2 K/UL (4.8-10.8) H Red Blood Count 3.52 M/UL (4.70-6.10) L Hemoglobin 10.6 G/DL (14.2-18.0) L Hematocrit 32.1 % (42.0-52.0) L Mean Corpuscular Volume 91 FL (80-99) Mean Corpuscular Hemoglobin 30.1 PG (27.0-31.0) Mean Corpuscular Hemoglobin Concent 33.0 G/DL (32.0-36.0) Red Cell Distribution Width 14.4 % (11.6-14.8) Platelet Count 171 K/UL (150-450) Mean Platelet Volume 7.0 FL (6.5-10.1) Neutrophils (%) (Auto) % (45.0-75.0) Lymphocytes (%) (Auto) % (20.0-45.0) Monocytes (%) (Auto) % (1.0-10.0) Eosinophils (%) (Auto) % (0.0-3.0) Basophils (%) (Auto) % (0.0-2.0) Differential Total Cells Counted 100 Neutrophils % (Manual) 95 % (45-75) H Lymphocytes % (Manual) 3 % (20-45) L Monocytes % (Manual) 2 % (1-10) Eosinophils % (Manual) 0 % (0-3) Basophils % (Manual) 0 % (0-2) Band Neutrophils 0 % (0-8) Platelet Estimate Adequate Platelet Morphology Normal Anisocytosis 1+ Sodium Level 143 MMOL/L (136-145) Potassium Level 4.0 MMOL/L (3.5-5.1) Chloride Level 110 MMOL/L (98-107) H Carbon Dioxide Level 33 MMOL/L (21-32) H Anion Gap 0 mmol/L (5-15) L Blood Urea Nitrogen 22 mg/dL (7-18) H Creatinine 0.7 MG/DL (0.55-1.30) Estimat Glomerular Filtration Rate > 60 mL/min (>60) Glucose Level 194 MG/DL (74-106) #H Calcium Level 7.4 MG/DL (8.5-10.1) L Total Bilirubin 0.2 MG/DL (0.2-1.0) Aspartate Amino Transf (AST/SGOT) 22 U/L (15-37) Alanine Aminotransferase (ALT/SGPT) 12 U/L (12-78) Alkaline Phosphatase 99 U/L (46-116) Total Protein 5.3 G/DL (6.4-8.2) L Albumin 1.1 G/DL (3.4-5.0) L Globulin 4.2 g/dL Albumin/Globulin Ratio 0.3 (1.0-2.7) L Triglycerides Level 245 MG/DL (30-150) H Test 08/03/20 08:06 08/03/20 08:14 Arterial Blood pH 7.314 (7.350-7.450) Arterial Blood Partial Pressure CO2 68.8 mmHg (35.0-45.0) *H Arterial Blood Partial Pressure O2 87.2 mmHg (75.0-100.0) Arterial Blood HCO3 34.2 mmol/L (22.0-26.0) H Arterial Blood Oxygen Saturation 96.2 % (95-100) Arterial Blood Base Excess 6.2 (-2-2) H Francisco Test Positive POC Whole Blood Glucose Pending Current Medications Medications (Trade) Dose Ordered Sig/Dalia Route PRN Reason Start Time Stop Time Status Last Admin Dose Admin Acetaminophen (Tylenol) 500 mg Q6H PRN ORAL Mild Pain (Pain Scale 1-3) 07/21/20 08:15 08/20/20 08:14 08/01/20 05:39 Acetaminophen (Tylenol) 650 mg Q6H PRN NG Temp >100.5 08/01/20 10:30 08/31/20 10:29 08/02/20 20:46 Ascorbic Acid (Vitamin C) 500 mg EVERY 12 HOURS NG 08/02/20 21:00 08/22/20 08:59 08/03/20 08:03 Chlorhexidine Gluconate (Hiral-Hex 2%) 1 applic DAILY@2000 TOPIC 07/30/20 20:00 10/28/20 19:59 08/02/20 20:32 Dextrose (Dextrose 50%) 25 ml Q30M PRN IV Hypoglycemia 07/21/20 13:30 10/19/20 13:29 Dextrose (Dextrose 50%) 50 ml Q30M PRN IV Hypoglycemia 07/21/20 13:30 10/19/20 13:29 Dopamine HCl/ Dextrose 250 ml @ 0 mls/hr Q24H IV 08/02/20 00:00 08/05/20 01:29 08/02/20 17:35 Enoxaparin Sodium (Lovenox) 40 mg DAILY SUBQ 07/22/20 09:00 10/20/20 08:59 08/03/20 08:04 Fentanyl Citrate 250 ml @ 0 mls/hr Q24H IV 08/02/20 19:00 08/04/20 18:59 08/03/20 06:16 Guaifenesin (Robitussin) 200 mg Q4H PRN ORAL For Cough 07/25/20 12:30 10/23/20 12:29 07/29/20 09:32 Insulin Aspart (NovoLOG) EVERY 4 HOURS SUBQ 07/31/20 09:00 10/19/20 16:29 08/03/20 09:05 Insulin Detemir (Levemir) 20 units EVERY 12 HOURS SUBQ 08/02/20 09:00 10/19/20 20:59 08/03/20 09:04 Lorazepam (Ativan 2mg/ml 1ml) 1 mg Q4H PRN IV For Anxiety 07/29/20 17:15 08/05/20 17:14 08/02/20 05:58 Methylprednisolone Sodium Succinate (Solu-MEDROL) 40 mg EVERY 12 HOURS IVP 08/01/20 12:45 10/30/20 12:44 08/03/20 08:04 Mirtazapine (Remeron) 15 mg BEDTIME ORAL 07/22/20 21:00 10/20/20 20:59 08/02/20 20:32 Pantoprazole (Protonix) 40 mg DAILY IVP 07/30/20 09:00 08/29/20 08:59 08/03/20 08:03 Piperacillin Sod/ Tazobactam Sod 3.375 gm/Sodium Chloride 110 ml @ 27.5 mls/hr EVERY 8 HOURS IVPB 07/30/20 12:00 08/07/20 11:59 08/03/20 06:14 Propofol 100 ml @ 0 mls/hr Q12H IV 08/02/20 15:23 08/04/20 15:22 08/03/20 11:33 Sodium Chloride 1,000 ml @ 75 mls/hr [id number] IV 07/29/20 22:30 08/28/20 22:29 08/03/20 08:00 Christian Caraballo MD Aug 03, 2020 12:57
--- NOTE | 2020-08-03 13:00 | NUR ---
NURSE NOTES: Tolerating tube feeding. No residuals noted.
--- NOTE | 2020-08-03 13:53 | Nephrology Progress Note ---
Assessment/Plan Problem List: (1) Pneumonia due to COVID-19 virus (2) Acute respiratory failure with hypoxia (3) Hyperglycemia due to type 2 diabetes mellitus (4) Oliguria Assessment: Likely due to hypotension Assessment Oliguria due to hypotension On low-dose pressors COVID-19 disease seems to be severe. Diabetes mellitus with hyperglycemia. Hypoxic respiratory failure Lymphocytopenia. Sinus tachycardia Leukocytosis Plan August 03: Labs reviewed. Renal parameters stable. Continue to monitor renal parameters. Continue per consultants. August 02: Labs reviewed. Abnormal electrolytes and chemistries addressed. Continue per consultants. August 01: Labs reviewed. Renal parameters stable. Low phosphorus replaced. Continue per consultants. July 31: Urine output improved. Renal parameters and electrolytes stable. Continue per consultants. Continue per pulmonary Continue per ID Keep the blood pressure over 100 systolic Monitor renal parameters and urine output Avoid nephrotoxic's Per orders Subjective ROS Limited/Unobtainable: Yes Objective Objective Last 24 Hour Vital Signs Date Time Temp Pulse Resp B/P (MAP) Pulse Ox O2 Delivery O2 Flow Rate FiO2 08/03/20 13:31 26 123/51 Mechanical Ventilator 100 08/03/20 13:30 73 26 123/51 (75) 98 08/03/20 13:00 75 26 122/51 (74) 98 08/03/20 13:00 26 122/51 Mechanical Ventilator 100 08/03/20 12:31 26 123/51 Mechanical Ventilator 100 08/03/20 12:30 75 26 123/51 (75) 97 08/03/20 12:00 Mechanical Ventilator 08/03/20 12:00 26 128/50 Mechanical Ventilator 100 08/03/20 12:00 100 08/03/20 12:00 99.0 77 26 128/50 (76) 97 08/03/20 11:33 83 08/03/20 11:33 24 133/56 Mechanical Ventilator 100 08/03/20 11:31 26 133/56 Mechanical Ventilator 100 08/03/20 11:30 84 26 133/56 (81) 97 08/03/20 11:00 85 26 116/54 (74) 97 08/03/20 11:00 26 116/54 Mechanical Ventilator 100 08/03/20 10:54 87 28 100 08/03/20 10:31 25 130/55 Mechanical Ventilator 100 08/03/20 10:30 88 25 130/55 (80) 98 08/03/20 10:00 83 25 131/52 (78) 98 08/03/20 10:00 25 131/52 Mechanical Ventilator 100 08/03/20 09:31 25 123/56 Mechanical Ventilator 100 08/03/20 09:30 88 25 123/56 (78) 98 08/03/20 09:00 85 25 128/56 (80) 98 08/03/20 09:00 25 128/56 Mechanical Ventilator 100 08/03/20 08:31 25 124/55 Mechanical Ventilator 100 08/03/20 08:30 86 25 124/55 (78) 98 08/03/20 08:00 100 08/03/20 08:00 24 126/59 Mechanical Ventilator 100 08/03/20 08:00 Mechanical Ventilator 08/03/20 08:00 99.0 92 24 126/59 (81) 99 08/03/20 07:55 92 08/03/20 07:31 26 120/52 Mechanical Ventilator 100 08/03/20 07:30 86 26 120/52 (74) 99 08/03/20 07:05 93 28 100 08/03/20 07:00 97 24 127/64 (85) 99 08/03/20 07:00 26 127/64 Mechanical Ventilator 100 08/03/20 06:31 26 107/54 Mechanical Ventilator 100 08/03/20 06:30 86 26 107/54 (71) 98 08/03/20 06:16 26 119/54 Mechanical Ventilator 100 08/03/20 06:16 26 119/54 Mechanical Ventilator 100 08/03/20 06:00 94 25 119/54 (75) 98 08/03/20 06:00 26 119/54 Mechanical Ventilator 100 08/03/20 05:31 26 132/56 Mechanical Ventilator 100 08/03/20 05:30 99 25 132/56 (81) 98 08/03/20 05:00 101 24 115/51 (72) 97 08/03/20 05:00 26 115/51 Mechanical Ventilator 100 08/03/20 04:45 96 23 112/54 (73) 97 08/03/20 04:31 26 112/48 Mechanical Ventilator 100 08/03/20 04:30 112/48 08/03/20 04:30 96 24 112/48 (69) 96 08/03/20 04:00 100 08/03/20 04:00 98.8 82 26 116/51 (72) 98 08/03/20 04:00 26 116/51 Mechanical Ventilator 100 08/03/20 04:00 116/51 08/03/20 04:00 Mechanical Ventilator 08/03/20 03:43 85 08/03/20 03:31 26 121/53 Mechanical Ventilator 100 08/03/20 03:30 81 26 121/53 (75) 99 08/03/20 03:11 84 26 100 08/03/20 03:00 26 121/53 Mechanical Ventilator 100 08/03/20 03:00 117/53 08/03/20 03:00 83 26 117/53 (74) 98 08/03/20 02:31 26 137/55 Mechanical Ventilator 100 08/03/20 02:30 81 26 137/55 (82) 97 08/03/20 02:00 26 121/56 Mechanical Ventilator 100 08/03/20 02:00 121/56 08/03/20 02:00 82 26 121/56 (77) 96 08/03/20 01:47 26 112/53 Mechanical Ventilator 100 08/03/20 01:31 26 112/53 Mechanical Ventilator 100 08/03/20 01:30 81 26 112/53 (72) 95 08/03/20 01:00 83 24 95/48 (64) 93 08/03/20 01:00 26 95/48 Mechanical Ventilator 100 08/03/20 01:00 95/48 08/03/20 00:45 78 25 121/54 (76) 97 08/03/20 00:31 26 129/52 Mechanical Ventilator 100 08/03/20 00:30 129/52 08/03/20 00:30 76 25 129/52 (77) 97 08/03/20 00:00 100 08/03/20 00:00 26 124/51 Mechanical Ventilator 100 08/03/20 00:00 124/51 08/03/20 00:00 99.0 77 25 124/51 (75) 97 08/03/20 00:00 Mechanical Ventilator 08/02/20 23:34 83 08/02/20 23:31 26 132/58 Mechanical Ventilator 100 08/02/20 23:30 85 25 132/58 (82) 97 08/02/20 23:14 80 26 100 08/02/20 23:00 91 24 119/49 (72) 96 12/24/20 23:00 26 119/49 Mechanical Ventilator 100 20 23:00 119/49 08/02/20 22:31 26 115/53 Mechanical Ventilator 100 08/02/20 22:30 88 25 115/53 (73) 96 08/02/20 22:00 89 25 120/52 (74) 96 20 22:00 26 120/52 Mechanical Ventilator 100 08/02/20 22:00 120/52 08/02/20 21:31 26 114/50 Mechanical Ventilator 100 08/02/20 21:30 88 26 114/50 (71) 96 08/02/20 21:16 99.4 08/02/20 21:00 26 108/49 Mechanical Ventilator 100 08/02/20 21:00 108/49 08/02/20 21:00 86 26 108/49 (68) 96 08/02/20 20:35 26 118/52 Mechanical Ventilator 100 08/02/20 20:33 26 118/52 Mechanical Ventilator 100 08/02/20 20:31 26 119/56 Mechanical Ventilator 100 08/02/20 20:30 90 26 119/56 (77) 97 08/02/20 20:00 100.6 85 26 118/52 (74) 97 08/02/20 20:00 Mechanical Ventilator 08/02/20 20:00 118/52 08/02/20 20:00 26 118/52 Mechanical Ventilator 100 08/02/20 20:00 100 08/02/20 19:38 84 08/02/20 19:31 26 117/49 Mechanical Ventilator 100 08/02/20 19:30 85 26 117/49 (71) 96 08/02/20 19:00 84 26 103/50 (67) 95 08/02/20 19:00 89 26 100 08/02/20 19:00 103/50 08/02/20 19:00 26 103/50 Mechanical Ventilator 100 08/02/20 18:31 26 129/55 Mechanical Ventilator 100 08/02/20 18:30 76 26 129/55 (79) 96 08/02/20 18:00 137/56 08/02/20 18:00 26 137/56 Mechanical Ventilator 100 08/02/20 18:00 80 26 137/56 (83) 96 08/02/20 17:35 125/54 08/02/20 17:31 26 125/54 Mechanical Ventilator 100 08/02/20 17:30 78 26 125/54 (77) 96 08/02/20 17:00 80 26 114/50 (71) 95 08/02/20 17:00 114/50 08/02/20 17:00 26 114/50 Mechanical Ventilator 100 08/02/20 16:31 26 126/52 Mechanical Ventilator 100 08/02/20 16:30 80 26 126/52 (76) 96 08/02/20 16:00 100 08/02/20 16:00 98.5 80 26 122/54 (76) 96 08/02/20 16:00 122/54 08/02/20 16:00 25 122/54 Mechanical Ventilator 100 08/02/20 16:00 Mechanical Ventilator 08/02/20 15:31 23 123/51 Mechanical Ventilator 100 08/02/20 15:30 26 123/55 Mechanical Ventilator 100 08/02/20 15:30 86 26 123/55 (77) 96 08/02/20 15:25 86 08/02/20 15:08 80 26 100 08/02/20 15:00 79 26 123/51 (75) 96 08/02/20 15:00 123/51 08/02/20 15:00 26 123/51 Mechanical Ventilator 100 08/02/20 15:00 26 123/51 Mechanical Ventilator 100 08/02/20 14:00 120/54 08/02/20 14:00 26 120/54 Mechanical Ventilator 100 08/02/20 14:00 24 120/54 Mechanical Ventilator 100 08/02/20 14:00 82 26 120/54 (76) 96 Intake and Output 08/02/20 08/03/20 19:00 07:00 Intake Total 2475.806 ml 2075.302 ml Output Total 520 ml 610 ml Balance 1955.806 ml 1465.302 ml Free Water 60 ml IV Total 1995.806 ml 1595.302 ml Tube Feeding 420 ml 420 ml Other 60 ml Output Urine Total 520 ml 610 ml Laboratory Tests 08/02/20 17:44: POC Whole Blood Glucose 208H 08/02/20 20:48: POC Whole Blood Glucose 238H 08/03/20 03:45: White Blood Count 16.2H, Red Blood Count 3.52L, Hemoglobin 10.6L, Hematocrit 32.1L, Mean Corpuscular Volume 91, Mean Corpuscular Hemoglobin 30.1, Mean Corpuscular Hemoglobin Concent 33.0, Red Cell Distribution Width 14.4, Platelet Count 171, Mean Platelet Volume 7.0, Neutrophils (%) (Auto) , Lymphocytes (%) (Auto) , Monocytes (%) (Auto) , Eosinophils (%) (Auto) , Basophils (%) (Auto) , Differential Total Cells Counted 100, Neutrophils % (Manual) 95H, Lymphocytes % (Manual) 3L, Monocytes % (Manual) 2, Eosinophils % (Manual) 0, Basophils % (Manual) 0, Band Neutrophils 0, Platelet Estimate Adequate, Platelet Morphology Normal, Anisocytosis 1+, Sodium Level 143, Potassium Level 4.0, Chloride Level 110H, Carbon Dioxide Level 33H, Anion Gap 0L, Blood Urea Nitrogen 22H, Creatinine 0.7, Estimat Glomerular Filtration Rate > 60, Glucose Level 194#H, Calcium Level 7.4L, Total Bilirubin 0.2, Aspartate Amino Transf (AST/SGOT) 22, Alanine Aminotransferase (ALT/SGPT) 12, Alkaline Phosphatase 99, Total Protein 5.3L, Albumin 1.1L, Globulin 4.2, Albumin/Globulin Ratio 0.3L, Triglycerides Level 245H 08/03/20 04:08: POC Whole Blood Glucose [Pending] 08/03/20 08:06: Arterial Blood pH 7.314L, Arterial Blood Partial Pressure CO2 68.8*H, Arterial Blood Partial Pressure O2 87.2, Arterial Blood HCO3 34.2H, Arterial Blood Oxygen Saturation 96.2, Arterial Blood Base Excess 6.2H, Francisco Test Positive 08/03/20 08:14: POC Whole Blood Glucose [Pending] 08/03/20 13:07: POC Whole Blood Glucose 186H Height (Feet): 5 Height (Inches): 6.00 Weight (Pounds): 172 General Appearance: no apparent distress Cardiovascular: normal rate Respiratory/Chest: decreased breath sounds Abdomen: distended José Luis Preciado MD Aug 03, 2020 13:53
--- NOTE | 2020-08-03 15:00 | NUR ---
NURSE NOTES: Remains lightly sedated, tolerating current vent settings.
[2020-08-03] MEDS ORDERED: NS 275ml ONE (15:15)
[2020-08-03] MEDS ORDERED: Tubing IV Secondary IV ONE (15:15)
--- NOTE | 2020-08-03 18:00 | NUR ---
NURSE NOTES: Dr. Shoemaker in the unit covering for Dr. Briceño. said that he will check patient's chart, and will order to change blood sugar and Novolog per sliding scale frequency order.
--- NOTE | 2020-08-03 19:00 | NUR ---
NURSE NOTES: Received patient from CHARMAINE Mcneill. Patient is observed resting in bed and remains sedated with a RASS score of -2 noted. FLACC score of 0 noted upon assessment. Pt is currently orally intubated et tube size 7.5 noted to be 23 @ lip and pt appears to be tolerating current vent settings well with an O2 saturation of of 99% at this time. Vent settings as follows: AC 26 TV 450 FiO2 100% PEEP 15. Bilateral lower lobe breath sounds noted to be diminished upon auscultation with rhonchi noted in bilateral upper lobes. Pt noted to be SR on tele monitor with a HR of 67, BP remains stable at this time. L FA 20g IV Catheter and R Femoral TLC noted which remain asymptomatic, intact and patent. Central line dressing remains clean, dry and intact. NS is currently infusing at 75mL/hr as ordered, Fentanyl infusing at 240mcg/hr and Propofol infusing at 40 mcg/kg/min without incident. Active bowel sounds noted in all four quadrants; abdomen remains flat, soft and nontender. OG tube noted which remains secured and patent with Vital AF currently infusing at 35mL/hr as ordered with no residual noted. Miranda catheter noted which continues to drain urine by gravity. Diagnostics reviewed at bedside. Skin remains intact. Bilateral soft wrist restraints to be discontinued per order. Pt noted to be calm and cooperative at this time. CMS remains intact, will continue to monitor pt for safety concerns. Fall, Aspiration and Skin precautions observed. Pt repositioned for comfort and safety. Pt remains resting in bed; Bed remains in the lowest position with the safety wheels engaged, call light within reach, side rails up x3 and bed alarm activated. Will continue plan of care. Will continue to monitor.
--- NOTE | 2020-08-03 19:10 | NUR ---
NURSE HAND-OFF REPORT: Latest Vital Signs: Temperature 98.7 , Pulse 69 , B/P 128 /52 , Respiratory Rate 26 , O2 SAT 99 , Mechanical Ventilator, O2 Flow Rate . Vital Sign Comment: On fentanyl and propofol drip for RASS score -2. EKG Rhythm: Sinus Rhythm Rhythm change?: N Latest Van Fall Score: 50 Fall Risk: High Risk Safety Measures: Call light Within Reach, Bed Alarm Zone 2, Side Rails Side Rails x3, Bed position Low and Locked. Fall Precautions: Yellow Socks Door Sign Patient Fall Education Report given to Laquita Dixon RN.
[2020-08-03] MEDS: Dyna-Hex 2% Top Sol 2oz TOPIC SCH (20:28)
--- NOTE | 2020-08-03 20:30 | NUR ---
NURSE NOTES: 20.7 mL of propofol wasted per protocol for covid positive patient 11mL of waste used to reprime due to "air in line" error code on pump wasted in presence of CHARMAINE Rai
--- NOTE | 2020-08-03 21:00 | NUR ---
NURSE NOTES: Pt provided with a CHG bed bath, oral care and linen change. Pt appears to continue to tolerate current vent settings well and remains free from s/sx of acute respiratory distress. Physical status remains consistent with previous assessment. Fentanyl and Propofol continue to infuse without incident, no change in rate. RASS score of -2 noted with a FLACC score of 0 noted. Fall, Aspiration and Skin precautions observed. Pt remains resting in bed; Bed remains in the lowest position with the safety wheels engaged, call light within reach, side rails up x3 and bed alarm activated. Will continue plan of care. Will continue to monitor.
--- NOTE | 2020-08-03 22:30 | Consultation ---
DATE OF CONSULTATION: 08/03/2020 ENDOCRINOLOGY CONSULTATION CONSULTING PHYSICIAN: Patrice Shoemaker MD REFERRING PHYSICIAN: Milagro Miller MD REASON FOR CONSULTATION: I was asked to see this 54-year-old male by Dr. Milagro Miller in endocrinology consultation . PERTINENT HISTORY:Patient has COVID positive pneumonia and is intubated in ICU He is on Decadron 6 mg IVP qd.He is on Levemir 20 units q.12h.an dVITAL AF 30 cc/hr pe rOGT> FAMILY HISTORY: Unremarkable. REVIEW OF SYSTEMS: Unremarkable. PHYSICAL EXAMINATION: GENERAL: The patient is in no acute distress. VITAL SIGNS: Blood pressure is _123/70, pulse 71, respirations 18_, and temperature 98.7. HEAD AND NECK: Unremarkable. LUNGS: Clear. HEART: Regular. ABDOMEN: Soft. Bowel sounds present. EXTREMITIES: No edema. NEUROLOGICAL: Cranial nerves appears to be intact. Toes are downgoing to plantar stimulation. LABORATORY DATA: Glucose is 176 mg% ASSESSMENT: 1.Diabetes Mellitus Type 2 increaeed by steroids 2.COVID positive pneumonia PLANS:Currently, the patient is on dexamethasone 6 mg IV push daily with sliding scale of NovoLog Q4hrs which will be reduced to Q6hrs. Continue Levemir 20 units sc q.12h. and Vital Af 30 cc/hr per OGT. Accucheck sQ6hr with moderate sliding scale Novolog. Hemoglobin A1c was orderedin am. Patrice Shoemaker M.D. DR: Ang JOB#: [id number] CC: FILIPPO
--- NOTE | 2020-08-03 22:49 | General Progress Note ---
Subjective ROS Limited/Unobtainable: Yes Allergies: Coded Allergies: No Known Allergies (Unverified , 07/21/20) Objective Last 24 Hour Vital Signs Date Time Temp Pulse Resp B/P (MAP) Pulse Ox O2 Delivery O2 Flow Rate FiO2 08/03/20 22:29 78 26 100 08/03/20 22:00 76 26 151/63 (92) 100 08/03/20 22:00 26 151/63 Mechanical Ventilator 100 08/03/20 21:31 26 129/58 Mechanical Ventilator 100 08/03/20 21:30 66 26 129/58 (81) 100 08/03/20 21:25 26 124/55 Mechanical Ventilator 100 08/03/20 21:00 26 124/55 Mechanical Ventilator 100 08/03/20 21:00 67 26 124/55 (78) 99 08/03/20 20:31 26 126/52 Mechanical Ventilator 100 08/03/20 20:30 71 26 126/52 (76) 99 08/03/20 20:00 98.8 67 26 125/56 (79) 99 08/03/20 20:00 100 08/03/20 20:00 Mechanical Ventilator 08/03/20 20:00 26 125/56 Mechanical Ventilator 100 08/03/20 19:31 26 127/50 Mechanical Ventilator 100 08/03/20 19:30 69 26 127/50 (75) 99 08/03/20 19:24 69 08/03/20 19:00 69 26 100 08/03/20 19:00 26 128/52 Mechanical Ventilator 100 08/03/20 19:00 69 26 128/52 (77) 99 08/03/20 19:00 69 26 99 Mechanical Ventilator 100 08/03/20 18:31 26 124/52 Mechanical Ventilator 100 08/03/20 18:30 70 26 124/52 (76) 99 08/03/20 18:00 26 123/53 Mechanical Ventilator 100 08/03/20 18:00 70 26 123/53 (76) 99 08/03/20 17:31 26 122/51 Mechanical Ventilator 100 08/03/20 17:30 70 26 122/51 (74) 98 08/03/20 17:00 26 131/52 Mechanical Ventilator 100 08/03/20 17:00 71 26 131/52 (78) 98 08/03/20 16:41 26 118/50 Mechanical Ventilator 100 08/03/20 16:31 26 118/50 Mechanical Ventilator 100 08/03/20 16:30 72 26 118/50 (72) 98 08/03/20 16:23 26 130/51 Mechanical Ventilator 100 08/03/20 16:15 73 26 116/52 (73) 98 08/03/20 16:00 100 08/03/20 16:00 26 130/51 Mechanical Ventilator 100 08/03/20 16:00 70 08/03/20 16:00 98.7 73 26 130/51 (77) 98 08/03/20 16:00 Mechanical Ventilator 08/03/20 15:31 26 121/51 Mechanical Ventilator 100 08/03/20 15:30 73 26 121/51 (74) 98 08/03/20 15:00 74 26 127/51 (76) 98 08/03/20 15:00 26 127/51 Mechanical Ventilator 100 08/03/20 14:49 71 26 100 08/03/20 14:31 26 117/52 Mechanical Ventilator 100 08/03/20 14:30 72 26 117/52 (73) 98 08/03/20 14:00 26 127/53 Mechanical Ventilator 100 08/03/20 14:00 76 26 127/53 (77) 98 08/03/20 13:31 26 123/51 Mechanical Ventilator 100 08/03/20 13:30 73 26 123/51 (75) 98 08/03/20 13:00 75 26 122/51 (74) 98 08/03/20 13:00 26 122/51 Mechanical Ventilator 100 08/03/20 12:31 26 123/51 Mechanical Ventilator 100 08/03/20 12:30 75 26 123/51 (75) 97 08/03/20 12:00 Mechanical Ventilator 08/03/20 12:00 26 128/50 Mechanical Ventilator 100 08/03/20 12:00 100 08/03/20 12:00 99.0 77 26 128/50 (76) 97 08/03/20 11:33 83 08/03/20 11:33 24 133/56 Mechanical Ventilator 100 08/03/20 11:31 26 133/56 Mechanical Ventilator 100 08/03/20 11:30 84 26 133/56 (81) 97 08/03/20 11:00 85 26 116/54 (74) 97 08/03/20 11:00 26 116/54 Mechanical Ventilator 100 08/03/20 10:54 87 28 100 08/03/20 10:31 25 130/55 Mechanical Ventilator 100 08/03/20 10:30 88 25 130/55 (80) 98 08/03/20 10:00 83 25 131/52 (78) 98 08/03/20 10:00 25 131/52 Mechanical Ventilator 100 08/03/20 09:31 25 123/56 Mechanical Ventilator 100 08/03/20 09:30 88 25 123/56 (78) 98 08/03/20 09:00 85 25 128/56 (80) 98 08/03/20 09:00 25 128/56 Mechanical Ventilator 100 08/03/20 08:31 25 124/55 Mechanical Ventilator 100 08/03/20 08:30 86 25 124/55 (78) 98 08/03/20 08:00 100 08/03/20 08:00 24 126/59 Mechanical Ventilator 100 08/03/20 08:00 Mechanical Ventilator 08/03/20 08:00 99.0 92 24 126/59 (81) 99 08/03/20 07:55 92 08/03/20 07:31 26 120/52 Mechanical Ventilator 100 08/03/20 07:30 86 26 120/52 (74) 99 08/03/20 07:05 93 28 100 08/03/20 07:00 97 24 127/64 (85) 99 08/03/20 07:00 26 127/64 Mechanical Ventilator 100 08/03/20 06:31 26 107/54 Mechanical Ventilator 100 08/03/20 06:30 86 26 107/54 (71) 98 08/03/20 06:16 26 119/54 Mechanical Ventilator 100 08/03/20 06:16 26 119/54 Mechanical Ventilator 100 08/03/20 06:00 94 25 119/54 (75) 98 08/03/20 06:00 26 119/54 Mechanical Ventilator 100 08/03/20 05:31 26 132/56 Mechanical Ventilator 100 08/03/20 05:30 99 25 132/56 (81) 98 08/03/20 05:00 101 24 115/51 (72) 97 08/03/20 05:00 26 115/51 Mechanical Ventilator 100 08/03/20 04:45 96 23 112/54 (73) 97 08/03/20 04:31 26 112/48 Mechanical Ventilator 100 08/03/20 04:30 112/48 08/03/20 04:30 96 24 112/48 (69) 96 08/03/20 04:00 100 08/03/20 04:00 98.8 82 26 116/51 (72) 98 08/03/20 04:00 26 116/51 Mechanical Ventilator 100 08/03/20 04:00 116/51 08/03/20 04:00 Mechanical Ventilator 08/03/20 03:43 85 08/03/20 03:31 26 121/53 Mechanical Ventilator 100 08/03/20 03:30 81 26 121/53 (75) 99 08/03/20 03:11 84 26 100 08/03/20 03:00 26 121/53 Mechanical Ventilator 100 08/03/20 03:00 117/53 08/03/20 03:00 83 26 117/53 (74) 98 08/03/20 02:31 26 137/55 Mechanical Ventilator 100 08/03/20 02:30 81 26 137/55 (82) 97 08/03/20 02:00 26 121/56 Mechanical Ventilator 100 08/03/20 02:00 121/56 08/03/20 02:00 82 26 121/56 (77) 96 08/03/20 01:47 26 112/53 Mechanical Ventilator 100 08/03/20 01:31 26 112/53 Mechanical Ventilator 100 08/03/20 01:30 81 26 112/53 (72) 95 08/03/20 01:00 83 24 95/48 (64) 93 08/03/20 01:00 26 95/48 Mechanical Ventilator 100 08/03/20 01:00 95/48 08/03/20 00:45 78 25 121/54 (76) 97 08/03/20 00:31 26 129/52 Mechanical Ventilator 100 08/03/20 00:30 129/52 08/03/20 00:30 76 25 129/52 (77) 97 08/03/20 00:00 100 08/03/20 00:00 26 124/51 Mechanical Ventilator 100 08/03/20 00:00 124/51 08/03/20 00:00 99.0 77 25 124/51 (75) 97 08/03/20 00:00 Mechanical Ventilator 08/02/20 23:34 83 08/02/20 23:31 26 132/58 Mechanical Ventilator 100 08/02/20 23:30 85 25 132/58 (82) 97 08/02/20 23:14 80 26 100 08/02/20 23:00 91 24 119/49 (72) 96 08/02/20 23:00 26 119/49 Mechanical Ventilator 100 08/02/20 23:00 119/49 Intake and Output 08/02/20 08/03/20 19:00 07:00 Intake Total 2475.806 ml 2075.302 ml Output Total 520 ml 610 ml Balance 1955.806 ml 1465.302 ml Free Water 60 ml IV Total 1995.806 ml 1595.302 ml Tube Feeding 420 ml 420 ml Other 60 ml Output Urine Total 520 ml 610 ml Laboratory Tests 08/03/20 03:45: White Blood Count 16.2H, Red Blood Count 3.52L, Hemoglobin 10.6L, Hematocrit 32.1L, Mean Corpuscular Volume 91, Mean Corpuscular Hemoglobin 30.1, Mean Corpuscular Hemoglobin Concent 33.0, Red Cell Distribution Width 14.4, Platelet Count 171, Mean Platelet Volume 7.0, Neutrophils (%) (Auto) , Lymphocytes (%) (Auto) , Monocytes (%) (Auto) , Eosinophils (%) (Auto) , Basophils (%) (Auto) , Differential Total Cells Counted 100, Neutrophils % (Manual) 95H, Lymphocytes % (Manual) 3L, Monocytes % (Manual) 2, Eosinophils % (Manual) 0, Basophils % (Manual) 0, Band Neutrophils 0, Platelet Estimate Adequate, Platelet Morphology Normal, Anisocytosis 1+, Sodium Level 143, Potassium Level 4.0, Chloride Level 110H, Carbon Dioxide Level 33H, Anion Gap 0L, Blood Urea Nitrogen 22H, Creatinine 0.7, Estimat Glomerular Filtration Rate > 60, Glucose Level 194#H, Calcium Level 7.4L, Total Bilirubin 0.2, Aspartate Amino Transf (AST/SGOT) 22, Alanine Aminotransferase (ALT/SGPT) 12, Alkaline Phosphatase 99, Total Protein 5.3L, Albumin 1.1L, Globulin 4.2, Albumin/Globulin Ratio 0.3L, Triglycerides Level 245H 08/03/20 04:08: POC Whole Blood Glucose [Pending] 08/03/20 08:06: Arterial Blood pH 7.314L, Arterial Blood Partial Pressure CO2 68.8*H, Arterial Blood Partial Pressure O2 87.2, Arterial Blood HCO3 34.2H, Arterial Blood Oxygen Saturation 96.2, Arterial Blood Base Excess 6.2H, Francisco Test Positive 08/03/20 08:14: POC Whole Blood Glucose [Pending] 08/03/20 13:07: POC Whole Blood Glucose 186H Height (Feet): 5 Height (Inches): 6.00 Weight (Pounds): 172 Assessment/Plan Problem List: (1) Acute respiratory failure with hypoxia ICD Codes: J96.01 - Acute respiratory failure with hypoxia; J12.89 - Other viral pneumonia SNOMED: 03306865, 887073705 (2) Pneumonia due to COVID-19 virus ICD Codes: U07.1 - COVID-19; J12.89 - Other viral pneumonia SNOMED: 744600782479986669 (3) Hyperglycemia due to type 2 diabetes mellitus ICD Codes: E11.65 - Type 2 diabetes mellitus with hyperglycemia; J12.89 - Other viral pneumonia SNOMED: 281059701887530, [id number] Qualifiers: Qualified Codes: E11.65 - Type 2 diabetes mellitus with hyperglycemia Status: progressing Assessment/Plan: covid positive pna intubated niddm not improving full support weak malnutrition Milagro Miller MD Aug 03, 2020 22:49
--- NOTE | 2020-08-03 23:00 | NUR ---
NURSE NOTES: Bedside physical assessment performed. Pt appears to continue to tolerate current vent settings well and remains free from s/sx of acute respiratory distress. BP remains stable. Physical status remains consistent with previous assessment. Fentanyl and Propofol continue to infuse at the same rate without incident. RASS score of -2 noted with a FLACC score of 0 noted. Will continue to assess pt for restraint removal criteria. No adverse events. Fall, Aspiration and Skin precautions observed. Pt remains resting in bed; Bed remains in the lowest position with the safety wheels engaged, call light within reach, side rails up x3 and bed alarm activated. Will continue plan of care. Will continue to monitor.
[2020-08-04] VITALS (57 sets, daily range): BP systolic 76–222; BP diastolic 52–89
[2020-08-04] MEDS: DOPamine 400mg/250ml 250 ML IV SCH
[2020-08-04] MEDS: NovoLOG Insulin Flexpen SUBQ SCH ×4 (00:19→18:02)
--- NOTE | 2020-08-04 01:00 | NUR ---
NURSE NOTES: Pt noted to be resting comfortably. Pt remains clean and dry. Bedside physical assessment performed. Physical status remains consistent with previous physical assessment. Fentanyl and Propofol continue to infuse without incident, no change in rate necessary at this time. RASS score of -2 noted with a FLACC score of 0 noted. Will continue to assess pt for restraint removal criteria. No adverse events. Fall, Aspiration and Skin precautions observed. Pt remains resting in bed; Bed remains in the lowest position with the safety wheels engaged, call light within reach, side rails up x3 and bed alarm activated. Will continue plan of care. Will continue to monitor.
--- NOTE | 2020-08-04 02:30 | NUR ---
NURSE NOTES: 4.508mL of Propofol wasted per protocol for covid positive patient 6.8mL of Fentanyl wasted per protocol for covid positive patient wasted in presence of CHARMAINE Torres and CHARMAINE Rai
[2020-08-04] MEDS: propofoL 1,000mg/100ml 100 ML IV SCH ×2 (02:33→06:25)
[2020-08-04] MEDS: fentaNYL 2500mcg/NS 250ml 250 ML IV SCH ×3 (02:33→18:00)
--- NOTE | 2020-08-04 03:00 | NUR ---
NURSE NOTES: Bedside physical assessment performed. No adverse events. Fentanyl and Propofol remain therapeutic at this time. Fall, Aspiration and Skin precautions observed. Pt remains resting in bed; Bed remains in the lowest position with the safety wheels engaged, call light within reach, side rails up x3 and bed alarm activated. Will continue plan of care. Will continue to monitor.
--- NOTE | 2020-08-04 05:00 | NUR ---
NURSE NOTES: Specimens collected for morning lab orders without incident. Samples submitted to laboratory for analysis. Bedside physical assessment performed. No adverse events. Fentanyl and Propofol remain therapeutic at this time. Fall, Aspiration and Skin precautions observed. Pt remains resting in bed; Bed remains in the lowest position with the safety wheels engaged, call light within reach, side rails up x3 and bed alarm activated. Will continue plan of care. Will continue to monitor.
[2020-08-04 05:28] LABS: HEMATOCRIT 30.7 % (42.0-52.0); HEMOGLOBIN 10.4 G/DL (14.2-18.0); MEAN CORPUSCULAR VOLUME 89 FL (80-99); PLATELET COUNT 181 K/UL (150-450); RED BLOOD COUNT 3.46 M/UL (4.70-6.10); RED CELL DISTRIBUTION WIDTH 14.5 % (11.6-14.8); WHITE BLOOD COUNT 11.4 K/UL (4.8-10.8)
[2020-08-04 06:21] LABS: ALANINE AMINOTRANSFERASE 18 U/L (12-78); ALBUMIN 1.1 G/DL (3.4-5.0); ALBUMIN/GLOBULIN RATIO 0.3 (1.0-2.7); ALKALINE PHOSPHATASE 103 U/L (46-116); ANION GAP 0 mmol/L (5-15); ASPARTATE AMINO TRANSFERASE 25 U/L (15-37); BILIRUBIN,TOTAL 0.2 MG/DL (0.2-1.0); BLOOD UREA NITROGEN 29 mg/dL (7-18); CALCIUM 7.2 MG/DL (8.5-10.1); CARBON DIOXIDE 35 MMOL/L (21-32); CHLORIDE 112 MMOL/L (98-107); CREATININE 0.7 MG/DL (0.55-1.30); PHOSPHORUS 2.5 MG/DL (2.5-4.9); POTASSIUM 4.1 MMOL/L (3.5-5.1); SODIUM 147 MMOL/L (136-145)
[2020-08-04] MEDS: Piperacillin/Tazobactam 3.375 GM in NS 110 ML IVPB SCH ×3 (06:25→21:35)
[2020-08-04] MEDS ORDERED: Atropine Inj 1mg/10ml Syr IVP PRN (06:30)
[2020-08-04] MEDS ORDERED: Atropine Inj 1mg/10ml Syr IVP ONE (06:30)
--- NOTE | 2020-08-04 06:44 | NUR ---
NURSE NOTES: Consulted with Dr Carranza regarding current pt condition and plan of care. Pt HR noted to go from 87 to 42 within 1 minute and sustain for 8 minutes. PRN Atropine order obtained, pt then became SR subsequently Atropine not given. Will continue to monitor. 27mL of propofol wasted per covid positive isolation protocol. 23mL of waste used to prime new tubing. Witnessed by CHARMAINE Rai
--- NOTE | 2020-08-04 07:11 | NUR ---
NURSE HAND-OFF REPORT: Latest Vital Signs: Temperature 98.8 , Pulse 92 , B/P 161 /62 , Respiratory Rate 26 , O2 SAT 96 , Mechanical Ventilator, O2 Flow Rate . Vital Sign Comment: EKG Rhythm: Sinus Rhythm Rhythm change?: N MD Notified?: - MD Response: Latest Van Fall Score: 50 Fall Risk: High Risk Safety Measures: Call light Within Reach, Bed Alarm Zone 2, Side Rails Side Rails x3, Bed position Low and Locked. Fall Precautions: Yellow Socks Door Sign Patient Fall Education Report given to CHARMAINE Mera.
--- NOTE | 2020-08-04 07:25 | NUR ---
NURSE NOTES: Received report from CHARMAINE Barajas. Patient orally intubated; ETT 7.5, 23cm @ the lipline with vent settings of AC:26, TV:450, FiO2:100% PEEP:15, O2sat:94%. Patient is sedated RASS -2; awakens to voice and touch. OGT in place and patent running Vital AF @ 35ml/hr. Miranda catheter in place and draining to urometer. PIV LFA #20g. Right femoral TLC running NS @ 75ml/hr, Fentanyl @ 240mcg/hr and Propofol @ 40mcgs. On bilateral soft wrist restraints for safety and prevent from pulling on lines and tubing. Safety measures in place; bed low, locked and alarm is on. Will continue plan of care. Addendum: 08/04/20 at 0727 by Samaria Rubalcava RN NURSE NOTES: Received report from CHARMAINE Teixeira. Patient orally intubated; ETT 7.5, 23cm @ the lipline with vent settings of AC:26, TV:450, FiO2:100% PEEP:15, O2sat:94%. Patient is sedated RASS -2; awakens to voice and touch. OGT in place and patent running Vital AF @ 35ml/hr. Miranda catheter in place and draining to urometer. PIV LFA #20g. Right femoral TLC running NS @ 75ml/hr, Fentanyl @ 240mcg/hr and Propofol @ 40mcgs. On bilateral soft wrist restraints for safety and prevent from pulling on lines and tubing. Safety measures in place; bed low, locked and alarm is on. Will continue plan of care.
--- NOTE | 2020-08-04 08:06 | Infectious Diseases Prog Note ---
Assessment/Plan Assessment/Plan IMPRESSION: COVID-19 disease seems to be severe. Diabetes mellitus with hyperglycemia. Hypoxic respiratory failure Lymphocytopenia. Sinus tachycardia Leukocytosis Hypotension ARDS RECOMMENDATION: Continue Methylprednisone Finished remdesivir course Continue Zosyn Repeat CXR Subjective ROS Limited/Unobtainable: Yes Constitutional: Denies: fever Neurologic: Reports: other - on restraint Allergies: Coded Allergies: No Known Allergies (Unverified , 07/21/20) Objective Last 24 Hour Vital Signs Date Time Temp Pulse Resp B/P (MAP) Pulse Ox O2 Delivery O2 Flow Rate FiO2 08/04/20 07:00 26 161/62 Mechanical Ventilator 100 08/04/20 07:00 92 26 161/62 (95) 96 08/04/20 06:31 26 140/59 Mechanical Ventilator 100 08/04/20 06:30 71 26 140/59 (86) 99 08/04/20 06:30 97 27 100 08/04/20 06:25 26 159/61 Mechanical Ventilator 100 08/04/20 06:00 26 159/61 Mechanical Ventilator 100 08/04/20 06:00 53 26 159/61 (93) 100 08/04/20 05:31 26 134/59 Mechanical Ventilator 100 08/04/20 05:30 60 26 134/59 (84) 100 08/04/20 05:00 26 133/60 Mechanical Ventilator 100 08/04/20 05:00 63 26 133/60 (84) 99 08/04/20 04:31 26 132/58 Mechanical Ventilator 100 08/04/20 04:30 59 26 132/58 (82) 100 08/04/20 04:12 60 08/04/20 04:00 Mechanical Ventilator 08/04/20 04:00 26 126/60 Mechanical Ventilator 100 08/04/20 04:00 98.8 62 26 126/60 (82) 100 08/04/20 04:00 100 08/04/20 03:31 26 136/62 Mechanical Ventilator 100 08/04/20 03:30 63 26 136/62 (86) 100 08/04/20 03:00 26 131/58 Mechanical Ventilator 100 08/04/20 03:00 65 26 131/58 (82) 99 08/04/20 02:33 26 139/61 Mechanical Ventilator 100 08/04/20 02:33 26 139/61 Mechanical Ventilator 100 08/04/20 02:31 26 141/61 Mechanical Ventilator 100 08/04/20 02:30 63 26 141/61 (87) 99 08/04/20 02:00 26 139/61 Mechanical Ventilator 100 08/04/20 02:00 61 26 139/61 (87) 100 08/04/20 01:31 26 140/62 Mechanical Ventilator 100 08/04/20 01:30 63 26 140/62 (88) 100 08/04/20 01:27 69 26 100 08/04/20 01:00 64 26 143/61 (88) 99 08/04/20 01:00 26 143/61 Mechanical Ventilator 100 08/04/20 00:31 26 140/61 Mechanical Ventilator 100 08/04/20 00:30 64 26 140/61 (87) 99 08/04/20 00:00 100 08/04/20 00:00 26 137/59 Mechanical Ventilator 100 08/04/20 00:00 99.0 66 26 137/59 (85) 99 08/04/20 00:00 Mechanical Ventilator 08/03/20 23:43 67 08/03/20 23:31 26 130/57 Mechanical Ventilator 100 08/03/20 23:30 66 26 130/57 (81) 98 08/03/20 23:00 26 135/58 Mechanical Ventilator 100 08/03/20 23:00 67 26 135/58 (83) 98 08/03/20 22:31 26 142/61 Mechanical Ventilator 100 08/03/20 22:30 69 26 142/61 (88) 99 08/03/20 22:29 78 26 100 08/03/20 22:00 76 26 151/63 (92) 100 08/03/20 22:00 26 151/63 Mechanical Ventilator 100 08/03/20 21:31 26 129/58 Mechanical Ventilator 100 08/03/20 21:30 66 26 129/58 (81) 100 08/03/20 21:25 26 124/55 Mechanical Ventilator 100 08/03/20 21:00 26 124/55 Mechanical Ventilator 100 08/03/20 21:00 67 26 124/55 (78) 99 08/03/20 20:31 26 126/52 Mechanical Ventilator 100 08/03/20 20:30 71 26 126/52 (76) 99 08/03/20 20:00 98.8 67 26 125/56 (79) 99 12/25/20 20:00 100 08/03/20 20:00 Mechanical Ventilator 08/03/20 20:00 26 125/56 Mechanical Ventilator 100 08/03/20 19:31 26 127/50 Mechanical Ventilator 100 08/03/20 19:30 69 26 127/50 (75) 99 20 19:24 69 08/03/20 19:00 69 26 100 08/03/20 19:00 26 128/52 Mechanical Ventilator 100 08/03/20 19:00 69 26 128/52 (77) 99 08/03/20 19:00 69 26 99 Mechanical Ventilator 100 08/03/20 18:31 26 124/52 Mechanical Ventilator 100 08/03/20 18:30 70 26 124/52 (76) 99 08/03/20 18:00 26 123/53 Mechanical Ventilator 100 08/03/20 18:00 70 26 123/53 (76) 99 08/03/20 17:31 26 122/51 Mechanical Ventilator 100 08/03/20 17:30 70 26 122/51 (74) 98 08/03/20 17:00 26 131/52 Mechanical Ventilator 100 08/03/20 17:00 71 26 131/52 (78) 98 08/03/20 16:41 26 118/50 Mechanical Ventilator 100 08/03/20 16:31 26 118/50 Mechanical Ventilator 100 08/03/20 16:30 72 26 118/50 (72) 98 08/03/20 16:23 26 130/51 Mechanical Ventilator 100 08/03/20 16:15 73 26 116/52 (73) 98 08/03/20 16:00 100 08/03/20 16:00 26 130/51 Mechanical Ventilator 100 08/03/20 16:00 70 08/03/20 16:00 98.7 73 26 130/51 (77) 98 08/03/20 16:00 Mechanical Ventilator 08/03/20 15:31 26 121/51 Mechanical Ventilator 100 08/03/20 15:30 73 26 121/51 (74) 98 08/03/20 15:00 74 26 127/51 (76) 98 08/03/20 15:00 26 127/51 Mechanical Ventilator 100 08/03/20 14:49 71 26 100 08/03/20 14:31 26 117/52 Mechanical Ventilator 100 08/03/20 14:30 72 26 117/52 (73) 98 08/03/20 14:00 26 127/53 Mechanical Ventilator 100 08/03/20 14:00 76 26 127/53 (77) 98 08/03/20 13:31 26 123/51 Mechanical Ventilator 100 08/03/20 13:30 73 26 123/51 (75) 98 08/03/20 13:00 75 26 122/51 (74) 98 08/03/20 13:00 26 122/51 Mechanical Ventilator 100 08/03/20 12:31 26 123/51 Mechanical Ventilator 100 08/03/20 12:30 75 26 123/51 (75) 97 08/03/20 12:00 Mechanical Ventilator 08/03/20 12:00 26 128/50 Mechanical Ventilator 100 08/03/20 12:00 100 08/03/20 12:00 99.0 77 26 128/50 (76) 97 08/03/20 11:33 83 08/03/20 11:33 24 133/56 Mechanical Ventilator 100 08/03/20 11:31 26 133/56 Mechanical Ventilator 100 08/03/20 11:30 84 26 133/56 (81) 97 08/03/20 11:00 85 26 116/54 (74) 97 08/03/20 11:00 26 116/54 Mechanical Ventilator 100 08/03/20 10:54 87 28 100 08/03/20 10:31 25 130/55 Mechanical Ventilator 100 08/03/20 10:30 88 25 130/55 (80) 98 08/03/20 10:00 83 25 131/52 (78) 98 08/03/20 10:00 25 131/52 Mechanical Ventilator 100 08/03/20 09:31 25 123/56 Mechanical Ventilator 100 08/03/20 09:30 88 25 123/56 (78) 98 08/03/20 09:00 85 25 128/56 (80) 98 08/03/20 09:00 25 128/56 Mechanical Ventilator 100 08/03/20 08:31 25 124/55 Mechanical Ventilator 100 08/03/20 08:30 86 25 124/55 (78) 98 Height (Feet): 5 Height (Inches): 6.00 Weight (Pounds): 172 HEENT: other - orally intubated Respiratory/Chest: other - on ventilator, XKE5=822% Cardiovascular: normal rate Abdomen: soft, non tender Extremities: no edema Neurologic/Psychiatric: other - sedated Laboratory Tests Test 08/03/20 08:06 08/03/20 08:14 08/03/20 13:07 08/04/20 04:35 Arterial Blood pH 7.314 (7.350-7.450) Arterial Blood Partial Pressure CO2 68.8 mmHg (35.0-45.0) *H Arterial Blood Partial Pressure O2 87.2 mmHg (75.0-100.0) Arterial Blood HCO3 34.2 mmol/L (22.0-26.0) H Arterial Blood Oxygen Saturation 96.2 % (95-100) Arterial Blood Base Excess 6.2 (-2-2) H Francisco Test Positive POC Whole Blood Glucose Pending 186 MG/DL (74-106) H White Blood Count 11.4 K/UL (4.8-10.8) H Red Blood Count 3.46 M/UL (4.70-6.10) L Hemoglobin 10.4 G/DL (14.2-18.0) L Hematocrit 30.7 % (42.0-52.0) L Mean Corpuscular Volume 89 FL (80-99) Mean Corpuscular Hemoglobin 30.0 PG (27.0-31.0) Mean Corpuscular Hemoglobin Concent 33.8 G/DL (32.0-36.0) Red Cell Distribution Width 14.5 % (11.6-14.8) Platelet Count 181 K/UL (150-450) Mean Platelet Volume 6.5 FL (6.5-10.1) Neutrophils (%) (Auto) % (45.0-75.0) Lymphocytes (%) (Auto) % (20.0-45.0) Monocytes (%) (Auto) % (1.0-10.0) Eosinophils (%) (Auto) % (0.0-3.0) Basophils (%) (Auto) % (0.0-2.0) Neutrophils % (Manual) Pending Lymphocytes % (Manual) Pending Platelet Estimate Pending Platelet Morphology Pending Sodium Level 147 MMOL/L (136-145) H Potassium Level 4.1 MMOL/L (3.5-5.1) Chloride Level 112 MMOL/L (98-107) H Carbon Dioxide Level 35 MMOL/L (21-32) H Anion Gap 0 mmol/L (5-15) L Blood Urea Nitrogen 29 mg/dL (7-18) H Creatinine 0.7 MG/DL (0.55-1.30) Estimat Glomerular Filtration Rate > 60 mL/min (>60) Glucose Level 130 MG/DL (74-106) H Hemoglobin A1c 11.5 % (4.3-6.0) H Uric Acid 2.4 MG/DL (2.6-7.2) L Calcium Level 7.2 MG/DL (8.5-10.1) L Phosphorus Level 2.5 MG/DL (2.5-4.9) Magnesium Level 2.6 MG/DL (1.8-2.4) H Total Bilirubin 0.2 MG/DL (0.2-1.0) Aspartate Amino Transf (AST/SGOT) 25 U/L (15-37) Alanine Aminotransferase (ALT/SGPT) 18 U/L (12-78) Alkaline Phosphatase 103 U/L (46-116) C-Reactive Protein, Quantitative 10.8 mg/dL (0.00-0.90) H Pro-B-Type Natriuretic Peptide 592 pg/mL (0-125) H Total Protein 5.1 G/DL (6.4-8.2) L Albumin 1.1 G/DL (3.4-5.0) L Globulin 4.0 g/dL Albumin/Globulin Ratio 0.3 (1.0-2.7) L Triglycerides Level 295 MG/DL (30-150) H Test 08/04/20 07:30 Arterial Blood pH 7.390 (7.350-7.450) Arterial Blood Partial Pressure CO2 59.8 mmHg (35.0-45.0) *H Arterial Blood Partial Pressure O2 95.8 mmHg (75.0-100.0) Arterial Blood HCO3 35.5 mmol/L (22.0-26.0) H Arterial Blood Oxygen Saturation 97.0 % (95-100) Arterial Blood Base Excess 8.7 (-2-2) H Francisco Test Positive Current Medications Medications (Trade) Dose Ordered Sig/Dalia Route PRN Reason Start Time Stop Time Status Last Admin Dose Admin Acetaminophen (Tylenol) 500 mg Q6H PRN ORAL Mild Pain (Pain Scale 1-3) 07/21/20 08:15 08/20/20 08:14 08/01/20 05:39 Acetaminophen (Tylenol) 650 mg Q6H PRN NG Temp >100.5 08/01/20 10:30 08/31/20 10:29 08/02/20 20:46 Ascorbic Acid (Vitamin C) 500 mg EVERY 12 HOURS NG 08/02/20 21:00 08/22/20 08:59 08/03/20 20:28 Atropine Sulfate (Atropine) 1 mg PRN PRN IVP Sustained HR <40 08/04/20 06:30 09/03/20 06:29 Chlorhexidine Gluconate (Hiral-Hex 2%) 1 applic DAILY@2000 TOPIC 07/30/20 20:00 10/28/20 19:59 08/03/20 20:28 Dextrose (Dextrose 50%) 25 ml Q30M PRN IV Hypoglycemia 07/21/20 13:30 10/19/20 13:29 Dextrose (Dextrose 50%) 50 ml Q30M PRN IV Hypoglycemia 07/21/20 13:30 10/19/20 13:29 Dopamine HCl/ Dextrose 250 ml @ 0 mls/hr Q24H IV 08/02/20 00:00 08/05/20 01:29 08/02/20 17:35 Enoxaparin Sodium (Lovenox) 40 mg DAILY SUBQ 07/22/20 09:00 10/20/20 08:59 08/03/20 08:04 Fentanyl Citrate 250 ml @ 0 mls/hr Q24H IV 08/02/20 19:00 08/04/20 18:59 08/04/20 02:33 Guaifenesin (Robitussin) 200 mg Q4H PRN ORAL For Cough 07/25/20 12:30 10/23/20 12:29 07/29/20 09:32 Insulin Aspart (NovoLOG) EVERY 6 HOURS SUBQ 08/04/20 00:00 10/19/20 16:29 08/04/20 00:19 Insulin Detemir (Levemir) 20 units EVERY 12 HOURS SUBQ 08/02/20 09:00 10/19/20 20:59 08/03/20 21:53 Lorazepam (Ativan 2mg/ml 1ml) 1 mg Q4H PRN IV For Anxiety 07/29/20 17:15 08/05/20 17:14 08/02/20 05:58 Methylprednisolone Sodium Succinate (Solu-MEDROL) 40 mg EVERY 12 HOURS IVP 08/01/20 12:45 10/30/20 12:44 08/03/20 20:28 Mirtazapine (Remeron) 15 mg BEDTIME ORAL 07/22/20 21:00 10/20/20 20:59 08/03/20 20:29 Pantoprazole (Protonix) 40 mg DAILY IVP 07/30/20 09:00 08/29/20 08:59 08/03/20 08:03 Piperacillin Sod/ Tazobactam Sod 3.375 gm/Sodium Chloride 110 ml @ 27.5 mls/hr EVERY 8 HOURS IVPB 07/30/20 12:00 08/07/20 11:59 08/04/20 06:25 Propofol 100 ml @ 0 mls/hr Q12H IV 08/02/20 15:23 08/04/20 15:22 08/04/20 06:25 Sodium Chloride 1,000 ml @ 75 mls/hr [id number] IV 07/29/20 22:30 08/28/20 22:29 08/04/20 06:24 Christian Caraballo MD Aug 04, 2020 08:06
--- NOTE | 2020-08-04 08:20 | Diagnostic Imaging Report ---
EXAM: XR Chest, 1 View CLINICAL HISTORY: F/U TECHNIQUE: Frontal view of the chest. COMPARISON: Chest x-ray 07/31/20 1:31 AM FINDINGS: Lungs: Diffuse bilateral airspace opacities are worse than prior study. Pleural space: No obvious pneumothorax is identified. Probable tiny bilateral pleural effusions. Heart: Unremarkable. No cardiomegaly. Mediastinum: Unremarkable. Bones/joints: Unremarkable. Soft tissues: Worsening extensive chest wall and neck subcutaneous emphysema. Tubes, lines and devices: Endotracheal tube has been pulled back and 1. 5 cm above the antonio. Nasogastric tube traverses diaphragm tip in the distal stomach. IMPRESSION: 1. Worsening extensive chest wall and neck subcutaneous emphysema. 2. No obvious pneumothorax is identified. 3. Diffuse bilateral airspace opacities are worse than prior study. 4. Probable tiny bilateral pleural effusions.
--- NOTE | 2020-08-04 09:00 | NUR ---
NURSE NOTES: Pt's HR ST in the 140's, B/P elevated. O2sat dropping to the 70's. RT called and pt was assessed. Pt is maxed on ventilator settings. Sedation increased d/t restlessness and agitation.
[2020-08-04] MEDS: Solu-MEDROL 40mg Inj IVP SCH ×2 (09:10→20:20)
[2020-08-04] MEDS: Ascorbic Acid 500mg tab NG SCH ×2 (09:10→20:20)
[2020-08-04] MEDS: Pantoprazole Inj IVP SCH (09:10)
[2020-08-04] MEDS: Levemir Flexpen SUBQ SCH ×2 (09:11→21:36)
[2020-08-04] MEDS: Enoxaparin 40mg Inj SUBQ SCH (09:13)
[2020-08-04] MEDS: MIDAZOLAM FOR DRIP IV SCH ×2 (10:45→20:07)
[2020-08-04] MEDS: NS IV SCH ×2 (10:45→20:07)
--- NOTE | 2020-08-04 11:00 | NUR ---
NURSE NOTES: Versed started and propofol d/c'd d/t propofol having no effect on pt. Pt remained restless with O2sat in the 30's despite being maxed on Propofol and Fentanyl.
--- NOTE | 2020-08-04 11:29 | Nephrology Progress Note ---
Assessment/Plan Problem List: (1) Pneumonia due to COVID-19 virus (2) Acute respiratory failure with hypoxia (3) Hyperglycemia due to type 2 diabetes mellitus (4) Oliguria Assessment: Likely due to hypotension Assessment Oliguria due to hypotension On low-dose pressors COVID-19 disease seems to be severe. Diabetes mellitus with hyperglycemia. Hypoxic respiratory failure Lymphocytopenia. Sinus tachycardia Leukocytosis Plan August 04: Labs reviewed. Discussed with CHARMAINE Mera. Continue to monitor renal parameters. August 03:Labs reviewed. Abnormal electrolytes and chemistries addressed. Continue per consultants. August 02: Labs reviewed. Abnormal electrolytes and chemistries addressed. Continue per consultants. August 01: Labs reviewed. Renal parameters stable. Low phosphorus replaced. Continue per consultants. July 31: Urine output improved. Renal parameters and electrolytes stable. Continue per consultants. Continue per pulmonary Continue per ID Keep the blood pressure over 100 systolic Monitor renal parameters and urine output Avoid nephrotoxic's Per orders Subjective ROS Limited/Unobtainable: Yes Objective Objective Last 24 Hour Vital Signs Date Time Temp Pulse Resp B/P (MAP) Pulse Ox O2 Delivery O2 Flow Rate FiO2 08/04/20 11:00 141 26 135/63 (87) 40 08/04/20 10:45 31 Mechanical Ventilator 08/04/20 10:30 154 33 135/63 (87) 37 08/04/20 10:30 30 135/63 Mechanical Ventilator 100 08/04/20 10:00 151 32 161/74 (103) 50 08/04/20 09:45 31 171/74 Mechanical Ventilator 100 08/04/20 09:30 147 30 171/74 (106) 69 08/04/20 09:30 31 171/74 Mechanical Ventilator 31 08/04/20 09:30 31 171/74 Mechanical Ventilator 100 08/04/20 09:15 32 178/88 Mechanical Ventilator 100 08/04/20 09:00 142 29 178/88 (118) 70 08/04/20 09:00 30 178/88 Mechanical Ventilator 100 08/04/20 08:45 30 222/89 Mechanical Ventilator 100 08/04/20 08:30 137 31 222/89 (133) 90 08/04/20 08:30 30 222/89 Mechanical Ventilator 100 08/04/20 08:30 30 222/89 Mechanical Ventilator 100 08/04/20 08:15 30 220/77 Mechanical Ventilator 100 08/04/20 08:00 30 220/77 Mechanical Ventilator 100 08/04/20 08:00 97.8 128 26 220/77 (124) 99 08/04/20 07:45 27 220/77 Mechanical Ventilator 100 08/04/20 07:30 93 27 190/70 (110) 99 08/04/20 07:30 35 190/70 Mechanical Ventilator 100 08/04/20 07:30 35 190/70 Mechanical Ventilator 100 08/04/20 07:00 26 161/62 Mechanical Ventilator 100 08/04/20 07:00 92 26 161/62 (95) 96 08/04/20 06:31 26 140/59 Mechanical Ventilator 100 08/04/20 06:30 71 26 140/59 (86) 99 08/04/20 06:30 97 27 100 08/04/20 06:25 26 159/61 Mechanical Ventilator 100 08/04/20 06:00 26 159/61 Mechanical Ventilator 100 08/04/20 06:00 53 26 159/61 (93) 100 08/04/20 05:31 26 134/59 Mechanical Ventilator 100 08/04/20 05:30 60 26 134/59 (84) 100 08/04/20 05:00 26 133/60 Mechanical Ventilator 100 08/04/20 05:00 63 26 133/60 (84) 99 08/04/20 04:31 26 132/58 Mechanical Ventilator 100 08/04/20 04:30 59 26 132/58 (82) 100 08/04/20 04:12 60 08/04/20 04:00 Mechanical Ventilator 08/04/20 04:00 26 126/60 Mechanical Ventilator 100 08/04/20 04:00 98.8 62 26 126/60 (82) 100 08/04/20 04:00 100 08/04/20 03:31 26 136/62 Mechanical Ventilator 100 08/04/20 03:30 63 26 136/62 (86) 100 08/04/20 03:00 26 131/58 Mechanical Ventilator 100 08/04/20 03:00 65 26 131/58 (82) 99 08/04/20 02:33 26 139/61 Mechanical Ventilator 100 08/04/20 02:33 26 139/61 Mechanical Ventilator 100 08/04/20 02:31 26 141/61 Mechanical Ventilator 100 08/04/20 02:30 63 26 141/61 (87) 99 08/04/20 02:00 26 139/61 Mechanical Ventilator 100 08/04/20 02:00 61 26 139/61 (87) 100 08/04/20 01:31 26 140/62 Mechanical Ventilator 100 08/04/20 01:30 63 26 140/62 (88) 100 08/04/20 01:27 69 26 100 08/04/20 01:00 64 26 143/61 (88) 99 08/04/20 01:00 26 143/61 Mechanical Ventilator 100 08/04/20 00:31 26 140/61 Mechanical Ventilator 100 08/04/20 00:30 64 26 140/61 (87) 99 08/04/20 00:00 100 08/04/20 00:00 26 137/59 Mechanical Ventilator 100 08/04/20 00:00 99.0 66 26 137/59 (85) 99 08/04/20 00:00 Mechanical Ventilator 08/03/20 23:43 67 08/03/20 23:31 26 130/57 Mechanical Ventilator 100 08/03/20 23:30 66 26 130/57 (81) 98 08/03/20 23:00 26 135/58 Mechanical Ventilator 100 08/03/20 23:00 67 26 135/58 (83) 98 08/03/20 22:31 26 142/61 Mechanical Ventilator 100 08/03/20 22:30 69 26 142/61 (88) 99 08/03/20 22:29 78 26 100 08/03/20 22:00 76 26 151/63 (92) 100 08/03/20 22:00 26 151/63 Mechanical Ventilator 100 08/03/20 21:31 26 129/58 Mechanical Ventilator 100 08/03/20 21:30 66 26 129/58 (81) 100 08/03/20 21:25 26 124/55 Mechanical Ventilator 100 08/03/20 21:00 26 124/55 Mechanical Ventilator 100 08/03/20 21:00 67 26 124/55 (78) 99 08/03/20 20:31 26 126/52 Mechanical Ventilator 100 08/03/20 20:30 71 26 126/52 (76) 99 08/03/20 20:00 98.8 67 26 125/56 (79) 99 08/03/20 20:00 100 08/03/20 20:00 Mechanical Ventilator 08/03/20 20:00 26 125/56 Mechanical Ventilator 100 08/03/20 19:31 26 127/50 Mechanical Ventilator 100 08/03/20 19:30 69 26 127/50 (75) 99 08/03/20 19:24 69 08/03/20 19:00 69 26 100 08/03/20 19:00 26 128/52 Mechanical Ventilator 100 08/03/20 19:00 69 26 128/52 (77) 99 08/03/20 19:00 69 26 99 Mechanical Ventilator 100 08/03/20 18:31 26 124/52 Mechanical Ventilator 100 08/03/20 18:30 70 26 124/52 (76) 99 08/03/20 18:00 26 123/53 Mechanical Ventilator 100 08/03/20 18:00 70 26 123/53 (76) 99 08/03/20 17:31 26 122/51 Mechanical Ventilator 100 08/03/20 17:30 70 26 122/51 (74) 98 08/03/20 17:00 26 131/52 Mechanical Ventilator 100 08/03/20 17:00 71 26 131/52 (78) 98 08/03/20 16:41 26 118/50 Mechanical Ventilator 100 08/03/20 16:31 26 118/50 Mechanical Ventilator 100 08/03/20 16:30 72 26 118/50 (72) 98 08/03/20 16:23 26 130/51 Mechanical Ventilator 100 08/03/20 16:15 73 26 116/52 (73) 98 08/03/20 16:00 100 08/03/20 16:00 26 130/51 Mechanical Ventilator 100 08/03/20 16:00 70 08/03/20 16:00 98.7 73 26 130/51 (77) 98 08/03/20 16:00 Mechanical Ventilator 08/03/20 15:31 26 121/51 Mechanical Ventilator 100 08/03/20 15:30 73 26 121/51 (74) 98 08/03/20 15:00 74 26 127/51 (76) 98 08/03/20 15:00 26 127/51 Mechanical Ventilator 100 08/03/20 14:49 71 26 100 08/03/20 14:31 26 117/52 Mechanical Ventilator 100 08/03/20 14:30 72 26 117/52 (73) 98 08/03/20 14:00 26 127/53 Mechanical Ventilator 100 08/03/20 14:00 76 26 127/53 (77) 98 08/03/20 13:31 26 123/51 Mechanical Ventilator 100 08/03/20 13:30 73 26 123/51 (75) 98 08/03/20 13:00 75 26 122/51 (74) 98 08/03/20 13:00 26 122/51 Mechanical Ventilator 100 08/03/20 12:31 26 123/51 Mechanical Ventilator 100 08/03/20 12:30 75 26 123/51 (75) 97 08/03/20 12:00 Mechanical Ventilator 08/03/20 12:00 26 128/50 Mechanical Ventilator 100 08/03/20 12:00 100 08/03/20 12:00 99.0 77 26 128/50 (76) 97 08/03/20 11:33 83 08/03/20 11:33 24 133/56 Mechanical Ventilator 100 08/03/20 11:31 26 133/56 Mechanical Ventilator 100 08/03/20 11:30 84 26 133/56 (81) 97 Intake and Output 08/03/20 08/04/20 19:00 07:00 Intake Total 1982.892 ml 1860.915 ml Output Total 485 ml 525 ml Balance 1497.892 ml 1335.915 ml Free Water 60 ml IV Total 1502.892 ml 1380.915 ml Tube Feeding 420 ml 420 ml Other 60 ml Output Urine Total 485 ml 525 ml Laboratory Tests 08/03/20 13:07: POC Whole Blood Glucose 186H 08/04/20 04:35: White Blood Count 11.4H, Red Blood Count 3.46L, Hemoglobin 10.4L, Hematocrit 30.7L, Mean Corpuscular Volume 89, Mean Corpuscular Hemoglobin 30.0, Mean Corpuscular Hemoglobin Concent 33.8, Red Cell Distribution Width 14.5, Platelet Count 181, Mean Platelet Volume 6.5, Neutrophils (%) (Auto) , Lymphocytes (%) (Auto) , Monocytes (%) (Auto) , Eosinophils (%) (Auto) , Basophils (%) (Auto) , Differential Total Cells Counted 100, Neutrophils % (Manual) 90H, Lymphocytes % (Manual) 4L, Monocytes % (Manual) 6, Eosinophils % (Manual) 0, Basophils % (Manual) 0, Band Neutrophils 0, Platelet Estimate Adequate, Platelet Morphology Normal, Anisocytosis 1+, Sodium Level 147H, Potassium Level 4.1, Chloride Level 112H, Carbon Dioxide Level 35H, Anion Gap 0L, Blood Urea Nitrogen 29H, Creatinine 0.7, Estimat Glomerular Filtration Rate > 60, Glucose Level 130H, Hemoglobin A1c 11.5H, Uric Acid 2.4L, Calcium Level 7.2L, Phosphorus Level 2.5, Magnesium Level 2.6H, Total Bilirubin 0.2, Aspartate Amino Transf (AST/SGOT) 25, Alanine Aminotransferase (ALT/SGPT) 18, Alkaline Phosphatase 103, C-Reactive Protein, Quantitative 10.8H, Pro-B-Type Natriuretic Peptide 592H, Total Protein 5.1L, Albumin 1.1L, Globulin 4.0, Albumin/Globulin Ratio 0.3L, Triglycerides Level 295H 08/04/20 07:30: Arterial Blood pH 7.390, Arterial Blood Partial Pressure CO2 59.8*H, Arterial Blood Partial Pressure O2 95.8, Arterial Blood HCO3 35.5H, Arterial Blood Oxygen Saturation 97.0, Arterial Blood Base Excess 8.7H, Francisco Test Positive Height (Feet): 5 Height (Inches): 6.00 Weight (Pounds): 172 General Appearance: no apparent distress EENT: other - Intubated on ventilator Cardiovascular: tachycardia Respiratory/Chest: decreased breath sounds Abdomen: distended José Luis Preciado MD Aug 04, 2020 11:29
--- NOTE | 2020-08-04 13:00 | NUR ---
NURSE NOTES: Pt turned and repositioned for comfort. Pt sedated at this time, RASS -2 on Versed 5mg/hr and Fentanyl 380mcg/hr. O2sat remains between 30-50%.
--- NOTE | 2020-08-04 13:33 | Pulmonology Progress Note ---
Subjective ROS Limited/Unobtainable: Yes Interval Events: s/p intubation, sedation, now in ICU Constitutional: Denies: fever HEENT: Repors: no symptoms Respiratory: Reports: no symptoms, dry cough Cardiovascular: Reports: no symptoms; Denies: chest pain, palpitations Gastrointestinal/Abdominal: Reports: no symptoms Musculoskeletal: Reports: other - legs cramps Allergies: Coded Allergies: No Known Allergies (Unverified , 07/21/20) All Systems: reviewed and negative except above Objective Last 24 Hour Vital Signs Date Time Temp Pulse Resp B/P (MAP) Pulse Ox O2 Delivery O2 Flow Rate FiO2 08/04/20 13:00 28 112/63 Mechanical Ventilator 100 08/04/20 13:00 28 Mechanical Ventilator 100 08/04/20 13:00 154 23 112/63 (79) 44 08/04/20 12:30 156 18 108/68 (81) 31 08/04/20 12:00 28 149/79 Mechanical Ventilator 100 08/04/20 12:00 28 Mechanical Ventilator 100 08/04/20 12:00 100 08/04/20 12:00 98.1 134 29 149/79 (102) 62 08/04/20 12:00 Mechanical Ventilator 08/04/20 11:45 28 101/59 Mechanical Ventilator 100 08/04/20 11:45 28 Mechanical Ventilator 100 08/04/20 11:30 27 Mechanical Ventilator 100 08/04/20 11:30 150 28 101/59 (73) 39 08/04/20 11:15 28 Mechanical Ventilator 100 08/04/20 11:00 28 Mechanical Ventilator 100 08/04/20 11:00 28 135/63 Mechanical Ventilator 100 08/04/20 11:00 141 26 135/63 (87) 40 08/04/20 10:45 31 Mechanical Ventilator 100 08/04/20 10:45 22 135/63 Mechanical Ventilator 100 08/04/20 10:30 154 33 135/63 (87) 37 08/04/20 10:30 30 135/63 Mechanical Ventilator 100 08/04/20 10:30 33 135/63 Mechanical Ventilator 100 08/04/20 10:15 33 161/74 Mechanical Ventilator 100 08/04/20 10:00 33 161/74 Mechanical Ventilator 100 08/04/20 10:00 151 32 161/74 (103) 50 08/04/20 09:45 31 171/74 Mechanical Ventilator 100 08/04/20 09:30 147 30 171/74 (106) 69 08/04/20 09:30 31 171/74 Mechanical Ventilator 31 08/04/20 09:30 31 171/74 Mechanical Ventilator 100 08/04/20 09:15 32 178/88 Mechanical Ventilator 100 08/04/20 09:00 142 29 178/88 (118) 70 08/04/20 09:00 30 178/88 Mechanical Ventilator 100 08/04/20 08:45 30 222/89 Mechanical Ventilator 100 08/04/20 08:30 137 31 222/89 (133) 90 08/04/20 08:30 30 222/89 Mechanical Ventilator 100 08/04/20 08:30 30 222/89 Mechanical Ventilator 100 08/04/20 08:15 30 220/77 Mechanical Ventilator 100 08/04/20 08:00 Mechanical Ventilator 08/04/20 08:00 30 220/77 Mechanical Ventilator 100 08/04/20 08:00 97.8 128 26 220/77 (124) 99 08/04/20 08:00 100 08/04/20 07:45 27 220/77 Mechanical Ventilator 100 08/04/20 07:30 93 27 190/70 (110) 99 08/04/20 07:30 35 190/70 Mechanical Ventilator 100 08/04/20 07:30 35 190/70 Mechanical Ventilator 100 08/04/20 07:00 26 161/62 Mechanical Ventilator 100 08/04/20 07:00 92 26 161/62 (95) 96 08/04/20 06:31 26 140/59 Mechanical Ventilator 100 08/04/20 06:30 71 26 140/59 (86) 99 08/04/20 06:30 97 27 100 08/04/20 06:25 26 159/61 Mechanical Ventilator 100 08/04/20 06:00 26 159/61 Mechanical Ventilator 100 08/04/20 06:00 53 26 159/61 (93) 100 08/04/20 05:31 26 134/59 Mechanical Ventilator 100 08/04/20 05:30 60 26 134/59 (84) 100 08/04/20 05:00 26 133/60 Mechanical Ventilator 100 08/04/20 05:00 63 26 133/60 (84) 99 08/04/20 04:31 26 132/58 Mechanical Ventilator 100 12/26/20 04:30 59 26 132/58 (82) 100 08/04/20 04:12 60 08/04/20 04:00 Mechanical Ventilator 08/04/20 04:00 26 126/60 Mechanical Ventilator 100 08/04/20 04:00 98.8 62 26 126/60 (82) 100 08/04/20 04:00 100 08/04/20 03:31 26 136/62 Mechanical Ventilator 100 08/04/20 03:30 63 26 136/62 (86) 100 08/04/20 03:00 26 131/58 Mechanical Ventilator 100 08/04/20 03:00 65 26 131/58 (82) 99 08/04/20 02:33 26 139/61 Mechanical Ventilator 100 08/04/20 02:33 26 139/61 Mechanical Ventilator 100 08/04/20 02:31 26 141/61 Mechanical Ventilator 100 08/04/20 02:30 63 26 141/61 (87) 99 08/04/20 02:00 26 139/61 Mechanical Ventilator 100 08/04/20 02:00 61 26 139/61 (87) 100 08/04/20 01:31 26 140/62 Mechanical Ventilator 100 08/04/20 01:30 63 26 140/62 (88) 100 08/04/20 01:27 69 26 100 08/04/20 01:00 64 26 143/61 (88) 99 08/04/20 01:00 26 143/61 Mechanical Ventilator 100 08/04/20 00:31 26 140/61 Mechanical Ventilator 100 08/04/20 00:30 64 26 140/61 (87) 99 08/04/20 00:00 100 08/04/20 00:00 26 137/59 Mechanical Ventilator 100 08/04/20 00:00 99.0 66 26 137/59 (85) 99 08/04/20 00:00 Mechanical Ventilator 08/03/20 23:43 67 08/03/20 23:31 26 130/57 Mechanical Ventilator 100 08/03/20 23:30 66 26 130/57 (81) 98 08/03/20 23:00 26 135/58 Mechanical Ventilator 100 08/03/20 23:00 67 26 135/58 (83) 98 08/03/20 22:31 26 142/61 Mechanical Ventilator 100 08/03/20 22:30 69 26 142/61 (88) 99 08/03/20 22:29 78 26 100 08/03/20 22:00 76 26 151/63 (92) 100 08/03/20 22:00 26 151/63 Mechanical Ventilator 100 08/03/20 21:31 26 129/58 Mechanical Ventilator 100 08/03/20 21:30 66 26 129/58 (81) 100 08/03/20 21:25 26 124/55 Mechanical Ventilator 100 08/03/20 21:00 26 124/55 Mechanical Ventilator 100 08/03/20 21:00 67 26 124/55 (78) 99 08/03/20 20:31 26 126/52 Mechanical Ventilator 100 08/03/20 20:30 71 26 126/52 (76) 99 08/03/20 20:00 98.8 67 26 125/56 (79) 99 08/03/20 20:00 100 08/03/20 20:00 Mechanical Ventilator 08/03/20 20:00 26 125/56 Mechanical Ventilator 100 08/03/20 19:31 26 127/50 Mechanical Ventilator 100 08/03/20 19:30 69 26 127/50 (75) 99 08/03/20 19:24 69 08/03/20 19:00 69 26 100 08/03/20 19:00 26 128/52 Mechanical Ventilator 100 08/03/20 19:00 69 26 128/52 (77) 99 08/03/20 19:00 69 26 99 Mechanical Ventilator 100 08/03/20 18:31 26 124/52 Mechanical Ventilator 100 08/03/20 18:30 70 26 124/52 (76) 99 08/03/20 18:00 26 123/53 Mechanical Ventilator 100 08/03/20 18:00 70 26 123/53 (76) 99 08/03/20 17:31 26 122/51 Mechanical Ventilator 100 08/03/20 17:30 70 26 122/51 (74) 98 08/03/20 17:00 26 131/52 Mechanical Ventilator 100 08/03/20 17:00 71 26 131/52 (78) 98 08/03/20 16:41 26 118/50 Mechanical Ventilator 100 08/03/20 16:31 26 118/50 Mechanical Ventilator 100 08/03/20 16:30 72 26 118/50 (72) 98 08/03/20 16:23 26 130/51 Mechanical Ventilator 100 12/25/20 16:15 73 26 116/52 (73) 98 08/03/20 16:00 100 08/03/20 16:00 26 130/51 Mechanical Ventilator 100 08/03/20 16:00 70 08/03/20 16:00 98.7 73 26 130/51 (77) 98 08/03/20 16:00 Mechanical Ventilator 08/03/20 15:31 26 121/51 Mechanical Ventilator 100 08/03/20 15:30 73 26 121/51 (74) 98 08/03/20 15:00 74 26 127/51 (76) 98 08/03/20 15:00 26 127/51 Mechanical Ventilator 100 08/03/20 14:49 71 26 100 08/03/20 14:31 26 117/52 Mechanical Ventilator 100 08/03/20 14:30 72 26 117/52 (73) 98 08/03/20 14:00 26 127/53 Mechanical Ventilator 100 08/03/20 14:00 76 26 127/53 (77) 98 Intake and Output 08/03/20 08/04/20 19:00 07:00 Intake Total 1982.892 ml 1860.915 ml Output Total 485 ml 525 ml Balance 1497.892 ml 1335.915 ml Free Water 60 ml IV Total 1502.892 ml 1380.915 ml Tube Feeding 420 ml 420 ml Other 60 ml Output Urine Total 485 ml 525 ml General Appearance: no acute distress HEENT: normocephalic Respiratory: chest wall non-tender, crackles/rales Cardiovascular: normal peripheral pulses, normal rate Abdomen: normal bowel sounds Extremities: no cyanosis, no clubbing Laboratory Tests 08/04/20 00:15: POC Whole Blood Glucose 157H 08/04/20 04:35: White Blood Count 11.4H, Red Blood Count 3.46L, Hemoglobin 10.4L, Hematocrit 30.7L, Mean Corpuscular Volume 89, Mean Corpuscular Hemoglobin 30.0, Mean Corpuscular Hemoglobin Concent 33.8, Red Cell Distribution Width 14.5, Platelet Count 181, Mean Platelet Volume 6.5, Neutrophils (%) (Auto) , Lymphocytes (%) (Auto) , Monocytes (%) (Auto) , Eosinophils (%) (Auto) , Basophils (%) (Auto) , Differential Total Cells Counted 100, Neutrophils % (Manual) 90H, Lymphocytes % (Manual) 4L, Monocytes % (Manual) 6, Eosinophils % (Manual) 0, Basophils % (Manual) 0, Band Neutrophils 0, Platelet Estimate Adequate, Platelet Morphology Normal, Anisocytosis 1+, Sodium Level 147H, Potassium Level 4.1, Chloride Level 112H, Carbon Dioxide Level 35H, Anion Gap 0L, Blood Urea Nitrogen 29H, Creatinine 0.7, Estimat Glomerular Filtration Rate > 60, Glucose Level 130H, Hemoglobin A1c 11.5H, Uric Acid 2.4L, Calcium Level 7.2L, Phosphorus Level 2.5, Magnesium Level 2.6H, Total Bilirubin 0.2, Aspartate Amino Transf (AST/SGOT) 25, Alanine Aminotransferase (ALT/SGPT) 18, Alkaline Phosphatase 103, C-Reactive Protein, Quantitative 10.8H, Pro-B-Type Natriuretic Peptide 592H, Total Protein 5.1L, Albumin 1.1L, Globulin 4.0, Albumin/Globulin Ratio 0.3L, Triglycerides Level 295H 08/04/20 07:30: Arterial Blood pH 7.390, Arterial Blood Partial Pressure CO2 59.8*H, Arterial Blood Partial Pressure O2 95.8, Arterial Blood HCO3 35.5H, Arterial Blood Oxygen Saturation 97.0, Arterial Blood Base Excess 8.7H, Francisco Test Positive 08/04/20 09:01: POC Whole Blood Glucose 167H 08/04/20 13:29: POC Whole Blood Glucose 217H Current Medications Medications (Trade) Dose Ordered Sig/Dalia Route PRN Reason Start Time Stop Time Status Last Admin Dose Admin Acetaminophen (Tylenol) 500 mg Q6H PRN ORAL Mild Pain (Pain Scale 1-3) 07/21/20 08:15 08/20/20 08:14 08/01/20 05:39 Acetaminophen (Tylenol) 650 mg Q6H PRN NG Temp >100.5 08/01/20 10:30 08/31/20 10:29 08/02/20 20:46 Ascorbic Acid (Vitamin C) 500 mg EVERY 12 HOURS NG 08/02/20 21:00 08/22/20 08:59 08/04/20 09:10 Atropine Sulfate (Atropine) 1 mg PRN PRN IVP Sustained HR <40 08/04/20 06:30 09/03/20 06:29 Chlorhexidine Gluconate (Hiral-Hex 2%) 1 applic DAILY@1999 TOPIC 07/30/20 20:00 10/28/20 19:59 08/03/20 20:28 Dextrose (Dextrose 50%) 25 ml Q30M PRN IV Hypoglycemia 07/21/20 13:30 10/19/20 13:29 Dextrose (Dextrose 50%) 50 ml Q30M PRN IV Hypoglycemia 07/21/20 13:30 10/19/20 13:29 Dopamine HCl/ Dextrose 250 ml @ 0 mls/hr Q24H IV 08/02/20 00:00 08/05/20 01:29 08/02/20 17:35 Enoxaparin Sodium (Lovenox) 40 mg DAILY SUBQ 07/22/20 09:00 10/20/20 08:59 08/04/20 09:13 Fentanyl Citrate 250 ml @ 0 mls/hr Q24H IV 08/04/20 11:30 08/06/20 11:29 08/04/20 11:45 Guaifenesin (Robitussin) 200 mg Q4H PRN ORAL For Cough 07/25/20 12:30 10/23/20 12:29 07/29/20 09:32 Insulin Aspart (NovoLOG) EVERY 6 HOURS SUBQ 08/04/20 00:00 10/19/20 16:29 08/04/20 00:19 Insulin Detemir (Levemir) 20 units EVERY 12 HOURS SUBQ 08/02/20 09:00 10/19/20 20:59 08/04/20 09:11 Lorazepam (Ativan 2mg/ml 1ml) 1 mg Q4H PRN IV For Anxiety 07/29/20 17:15 08/05/20 17:14 08/02/20 05:58 Methylprednisolone Sodium Succinate (Solu-MEDROL) 40 mg EVERY 12 HOURS IVP 08/01/20 12:45 10/30/20 12:44 08/04/20 09:10 Midazolam HCl 50 mg/Sodium Chloride 110 ml @ 0 mls/hr Q24H IV 08/04/20 09:45 08/06/20 09:34 08/04/20 10:45 Mirtazapine (Remeron) 15 mg BEDTIME ORAL 07/22/20 21:00 10/20/20 20:59 08/03/20 20:29 Pantoprazole (Protonix) 40 mg DAILY IVP 07/30/20 09:00 08/29/20 08:59 08/04/20 09:10 Piperacillin Sod/ Tazobactam Sod 3.375 gm/Sodium Chloride 110 ml @ 27.5 mls/hr EVERY 8 HOURS IVPB 07/30/20 12:00 08/07/20 11:59 08/04/20 06:25 Sodium Chloride 1,000 ml @ 75 mls/hr [id number] IV 07/29/20 22:30 08/28/20 22:29 08/04/20 06:24 Assessment/Plan Assessment/Plan Assessment/Plan 1. COVID-19 pneumonia/Respiratory Failure - On Decadron - on remdesivir per ID specialist - Intubated - On AC mode; FiO2 100 %; PEEP 15 - ABG reviewed - On dopamine; Central line in place - on propofol and fentanyl still agitated, will DC propofol and start Versed; - will monitor for elevated TG's - CXR 07/24 Marked worsening of bilateral infiltrates 2. Elevated inflammatory markers. 3. Diabetes mellitus. -On insulin as needed 4. DVT prophylaxis - On Lovenox 08/03/20 Had worsening leucocytosis; now improved ABG 7.32/62/70 Continue vent as is; FiO2 100%; PEEP 15 Pradeep Monique,Pradeep Rosas MD Aug 04, 2020 13:33
--- NOTE | 2020-08-04 14:40 | NUR ---
NURSE NOTES: Left message for Dr Carranza regarding pt's HR (160's). Awaiting call back. Pt remains sedated RASS -2, however, o2sat remains extremely low @ 43%
--- NOTE | 2020-08-04 17:00 | NUR ---
NURSE NOTES: Dr Carranza aware of pt's HR in the 160's. No orders given for tachycardia. Levophed ordered as needed for fluctuating B/P. Currently 102/59
[2020-08-04] MEDS: Acetaminophen 650mg/20.3ml NG PRN (18:18)
[2020-08-04] MEDS: Norepinephrine 4mg/NS Premix 250 ML IV PRN (18:19)
--- NOTE | 2020-08-04 18:20 | NUR ---
NURSE NOTES: Levophed started for low B/P. HR remains tachycardic @ 155bpm. Tylenol 650mg given for temp of 100.5
--- NOTE | 2020-08-04 18:58 | NUR ---
NURSE NOTES: Levophed running @ 4mcg/min to maintain SBP >90. O2sat currently 89% on cardiac cath rn.
--- NOTE | 2020-08-04 19:23 | NUR ---
NURSE HAND-OFF REPORT: Latest Vital Signs: Temperature 100.1 , Pulse 153 , B/P 89 /62 , Respiratory Rate 21 , O2 SAT 89 , Mechanical Ventilator, FiO2 100% . Vital Sign Comment: EKG Rhythm: Sinus Tachycardia Rhythm change?: N MD Notified?: - MD Response: Latest Van Fall Score: 50 Fall Risk: High Risk Safety Measures: Call light Within Reach, Bed Alarm Zone 2, Side Rails Side Rails x3, Bed position Low and Locked. Fall Precautions: Yellow Socks Door Sign Patient Fall Education Report given to CHARMAINE Leigh.
--- NOTE | 2020-08-04 19:30 | NUR ---
NURSE NOTES: Received report from Samaria MONTANO. Patient in bed sedated. Orally intubated 7.5/24cm lip line, AC 26, TV 450, Fi02 100% peep 15 satting 90%. HOB elevated. OGT intact running Vital AF at 35cc/hr with 30cc residual. abd soft and non distended. Miranda intact draining. Right Femoral TLC intact infusing NS at 75cc/hr, Rass score -2, Fentanyl drip at 38mcg/hr, Versed drip at 4mcg/hr, and Levophed drip at 4mcg/min. BP 93/[address] on laboratory monitor HR 149. no s/s of hypo/hyperglycemia. Bilateral wrist restraint checked to prevent from pulling out tubing. call light within easy reach. Covid +. Airborne precaution maintained and observed. Temp 100 axillary cooling measure continued. will continue plan of care.
[2020-08-04] MEDS: Dyna-Hex 2% Top Sol 2oz TOPIC SCH (20:20)
--- NOTE | 2020-08-04 21:48 | Cardiac Electrophysiology PN ---
Assessment/Plan Assessment/Plan 1. Troponin elevation. Due to stress of respiratory failure in this patient with COVID pneumonia. EF 65% 2. COVID pneumonia and respiratory failure. The patient is on the ventilator with 100% FiO2 and PEEP of 15. Reintubated 07/31/20 3. Hypotension and bradycardia. On Levophed 6 mcg and iv fluid at 75cc/hr 4. Sepsis. On Zosyn per Dr. Christian Caraballo. 5. Diabetes. DW RN in ICU Subjective Subjective Self extubated and reintubated in ICU on the Vent with 100% Fio2 and PEEP 15 Now on Levophed 6 mcg, fentanyl and propofol drip. BP dropped to 70s with HR 130s that got better after 500cc NS and Levophed Objective Last 24 Hour Vital Signs Date Time Temp Pulse Resp B/P (MAP) Pulse Ox O2 Delivery O2 Flow Rate FiO2 08/04/20 21:00 25 92/59 Mechanical Ventilator 100 08/04/20 21:00 22 Mechanical Ventilator 100 08/04/20 20:07 28 Mechanical Ventilator 100.0 100 08/04/20 20:00 22 98/65 Mechanical Ventilator 100 08/04/20 20:00 22 Mechanical Ventilator 100 08/04/20 19:45 22 92/63 Mechanical Ventilator 100 08/04/20 19:45 22 Mechanical Ventilator 100 08/04/20 19:05 142 27 100 08/04/20 19:00 28 89/62 Mechanical Ventilator 100 08/04/20 19:00 28 Mechanical Ventilator 100 08/04/20 19:00 153 21 89/62 (71) 89 08/04/20 18:48 100.1 08/04/20 18:30 155 23 110/67 (81) 86 08/04/20 18:19 76/52 08/04/20 18:00 154 18 76/52 (60) 70 08/04/20 18:00 28 91/56 Mechanical Ventilator 100 08/04/20 18:00 28 Mechanical Ventilator 100 08/04/20 17:30 161 25 91/56 (68) 70 08/04/20 17:00 164 25 102/59 (73) 63 08/04/20 17:00 25 102/59 Mechanical Ventilator 100 08/04/20 17:00 28 Mechanical Ventilator 100 08/04/20 16:30 166 23 97/58 (71) 52 08/04/20 16:00 168 08/04/20 16:00 100.0 167 22 106/58 (74) 49 08/04/20 16:00 100 08/04/20 16:00 28 106/58 Mechanical Ventilator 100 08/04/20 16:00 28 Mechanical Ventilator 100 08/04/20 16:00 Mechanical Ventilator 08/04/20 15:36 164 28 97/61 (73) 31 08/04/20 15:30 165 21 89/58 (68) 26 08/04/20 15:00 165 21 114/60 (78) 31 08/04/20 15:00 28 114/60 Mechanical Ventilator 100 08/04/20 15:00 28 Mechanical Ventilator 100 08/04/20 14:30 167 23 103/64 (77) 35 08/04/20 14:00 28 114/71 Mechanical Ventilator 100 08/04/20 14:00 28 Mechanical Ventilator 100 08/04/20 14:00 163 27 114/71 (85) 30 08/04/20 13:30 146 24 121/68 (85) 55 08/04/20 13:05 162 29 100 08/04/20 13:00 28 112/63 Mechanical Ventilator 100 08/04/20 13:00 28 Mechanical Ventilator 100 08/04/20 13:00 154 23 112/63 (79) 44 08/04/20 12:30 156 18 108/68 (81) 31 08/04/20 12:00 134 08/04/20 12:00 28 149/79 Mechanical Ventilator 100 08/04/20 12:00 28 Mechanical Ventilator 100 08/04/20 12:00 100 08/04/20 12:00 98.1 134 29 149/79 (102) 62 08/04/20 12:00 Mechanical Ventilator 08/04/20 11:45 28 101/59 Mechanical Ventilator 100 08/04/20 11:45 28 Mechanical Ventilator 100 08/04/20 11:30 27 Mechanical Ventilator 100 08/04/20 11:30 150 28 101/59 (73) 39 08/04/20 11:15 28 Mechanical Ventilator 100 08/04/20 11:00 28 Mechanical Ventilator 100 08/04/20 11:00 28 135/63 Mechanical Ventilator 100 08/04/20 11:00 141 26 135/63 (87) 40 08/04/20 10:45 31 Mechanical Ventilator 100 08/04/20 10:45 22 135/63 Mechanical Ventilator 100 08/04/20 10:30 154 33 135/63 (87) 37 08/04/20 10:30 30 135/63 Mechanical Ventilator 100 08/04/20 10:30 33 135/63 Mechanical Ventilator 100 08/04/20 10:15 33 161/74 Mechanical Ventilator 100 08/04/20 10:00 33 161/74 Mechanical Ventilator 100 08/04/20 10:00 151 32 161/74 (103) 50 08/04/20 09:45 31 171/74 Mechanical Ventilator 100 08/04/20 09:30 147 30 171/74 (106) 69 08/04/20 09:30 31 171/74 Mechanical Ventilator 31 08/04/20 09:30 31 171/74 Mechanical Ventilator 100 08/04/20 09:15 32 178/88 Mechanical Ventilator 100 08/04/20 09:00 142 29 178/88 (118) 70 08/04/20 09:00 30 178/88 Mechanical Ventilator 100 08/04/20 08:45 30 222/89 Mechanical Ventilator 100 08/04/20 08:30 137 31 222/89 (133) 90 08/04/20 08:30 30 222/89 Mechanical Ventilator 100 08/04/20 08:30 30 222/89 Mechanical Ventilator 100 08/04/20 08:15 30 220/77 Mechanical Ventilator 100 08/04/20 08:00 Mechanical Ventilator 08/04/20 08:00 128 08/04/20 08:00 30 220/77 Mechanical Ventilator 100 08/04/20 08:00 97.8 128 26 220/77 (124) 99 08/04/20 08:00 100 08/04/20 07:45 27 220/77 Mechanical Ventilator 100 08/04/20 07:30 93 27 190/70 (110) 99 08/04/20 07:30 35 190/70 Mechanical Ventilator 100 08/04/20 07:30 35 190/70 Mechanical Ventilator 100 08/04/20 07:00 26 161/62 Mechanical Ventilator 100 08/04/20 07:00 92 26 161/62 (95) 96 08/04/20 06:31 26 140/59 Mechanical Ventilator 100 08/04/20 06:30 71 26 140/59 (86) 99 08/04/20 06:30 97 27 100 08/04/20 06:25 26 159/61 Mechanical Ventilator 100 12/26/20 06:00 26 159/61 Mechanical Ventilator 100 08/04/20 06:00 53 26 159/61 (93) 100 08/04/20 05:31 26 134/59 Mechanical Ventilator 100 08/04/20 05:30 60 26 134/59 (84) 100 08/04/20 05:00 26 133/60 Mechanical Ventilator 100 08/04/20 05:00 63 26 133/60 (84) 99 08/04/20 04:31 26 132/58 Mechanical Ventilator 100 08/04/20 04:30 59 26 132/58 (82) 100 08/04/20 04:12 60 08/04/20 04:00 Mechanical Ventilator 08/04/20 04:00 26 126/60 Mechanical Ventilator 100 08/04/20 04:00 98.8 62 26 126/60 (82) 100 08/04/20 04:00 100 08/04/20 03:31 26 136/62 Mechanical Ventilator 100 08/04/20 03:30 63 26 136/62 (86) 100 08/04/20 03:00 26 131/58 Mechanical Ventilator 100 08/04/20 03:00 65 26 131/58 (82) 99 08/04/20 02:33 26 139/61 Mechanical Ventilator 100 08/04/20 02:33 26 139/61 Mechanical Ventilator 100 08/04/20 02:31 26 141/61 Mechanical Ventilator 100 08/04/20 02:30 63 26 141/61 (87) 99 08/04/20 02:00 26 139/61 Mechanical Ventilator 100 08/04/20 02:00 61 26 139/61 (87) 100 08/04/20 01:31 26 140/62 Mechanical Ventilator 100 08/04/20 01:30 63 26 140/62 (88) 100 08/04/20 01:27 69 26 100 08/04/20 01:00 64 26 143/61 (88) 99 08/04/20 01:00 26 143/61 Mechanical Ventilator 100 08/04/20 00:31 26 140/61 Mechanical Ventilator 100 08/04/20 00:30 64 26 140/61 (87) 99 08/04/20 00:00 100 08/04/20 00:00 26 137/59 Mechanical Ventilator 100 08/04/20 00:00 99.0 66 26 137/59 (85) 99 08/04/20 00:00 Mechanical Ventilator 08/03/20 23:43 67 08/03/20 23:31 26 130/57 Mechanical Ventilator 100 08/03/20 23:30 66 26 130/57 (81) 98 08/03/20 23:00 26 135/58 Mechanical Ventilator 100 08/03/20 23:00 67 26 135/58 (83) 98 08/03/20 22:31 26 142/61 Mechanical Ventilator 100 08/03/20 22:30 69 26 142/61 (88) 99 08/03/20 22:29 78 26 100 08/03/20 22:00 76 26 151/63 (92) 100 08/03/20 22:00 26 151/63 Mechanical Ventilator 100 Intake and Output 08/03/20 08/04/20 19:00 07:00 Intake Total 1982.892 ml 1860.915 ml Output Total 485 ml 525 ml Balance 1497.892 ml 1335.915 ml Free Water 60 ml IV Total 1502.892 ml 1380.915 ml Tube Feeding 420 ml 420 ml Other 60 ml Output Urine Total 485 ml 525 ml Laboratory Tests Test 08/04/20 00:15 08/04/20 04:35 08/04/20 07:30 08/04/20 09:01 POC Whole Blood Glucose 157 MG/DL (74-106) H 167 MG/DL (74-106) H White Blood Count 11.4 K/UL (4.8-10.8) H Red Blood Count 3.46 M/UL (4.70-6.10) L Hemoglobin 10.4 G/DL (14.2-18.0) L Hematocrit 30.7 % (42.0-52.0) L Mean Corpuscular Volume 89 FL (80-99) Mean Corpuscular Hemoglobin 30.0 PG (27.0-31.0) Mean Corpuscular Hemoglobin Concent 33.8 G/DL (32.0-36.0) Red Cell Distribution Width 14.5 % (11.6-14.8) Platelet Count 181 K/UL (150-450) Mean Platelet Volume 6.5 FL (6.5-10.1) Neutrophils (%) (Auto) % (45.0-75.0) Lymphocytes (%) (Auto) % (20.0-45.0) Monocytes (%) (Auto) % (1.0-10.0) Eosinophils (%) (Auto) % (0.0-3.0) Basophils (%) (Auto) % (0.0-2.0) Differential Total Cells Counted 100 Neutrophils % (Manual) 90 % (45-75) H Lymphocytes % (Manual) 4 % (20-45) L Monocytes % (Manual) 6 % (1-10) Eosinophils % (Manual) 0 % (0-3) Basophils % (Manual) 0 % (0-2) Band Neutrophils 0 % (0-8) Platelet Estimate Adequate Platelet Morphology Normal Anisocytosis 1+ Sodium Level 147 MMOL/L (136-145) H Potassium Level 4.1 MMOL/L (3.5-5.1) Chloride Level 112 MMOL/L (98-107) H Carbon Dioxide Level 35 MMOL/L (21-32) H Anion Gap 0 mmol/L (5-15) L Blood Urea Nitrogen 29 mg/dL (7-18) H Creatinine 0.7 MG/DL (0.55-1.30) Estimat Glomerular Filtration Rate > 60 mL/min (>60) Glucose Level 130 MG/DL (74-106) H Hemoglobin A1c 11.5 % (4.3-6.0) H Uric Acid 2.4 MG/DL (2.6-7.2) L Calcium Level 7.2 MG/DL (8.5-10.1) L Phosphorus Level 2.5 MG/DL (2.5-4.9) Magnesium Level 2.6 MG/DL (1.8-2.4) H Total Bilirubin 0.2 MG/DL (0.2-1.0) Aspartate Amino Transf (AST/SGOT) 25 U/L (15-37) Alanine Aminotransferase (ALT/SGPT) 18 U/L (12-78) Alkaline Phosphatase 103 U/L (46-116) C-Reactive Protein, Quantitative 10.8 mg/dL (0.00-0.90) H Pro-B-Type Natriuretic Peptide 592 pg/mL (0-125) H Total Protein 5.1 G/DL (6.4-8.2) L Albumin 1.1 G/DL (3.4-5.0) L Globulin 4.0 g/dL Albumin/Globulin Ratio 0.3 (1.0-2.7) L Triglycerides Level 295 MG/DL (30-150) H Arterial Blood pH 7.390 (7.350-7.450) Arterial Blood Partial Pressure CO2 59.8 mmHg (35.0-45.0) *H Arterial Blood Partial Pressure O2 95.8 mmHg (75.0-100.0) Arterial Blood HCO3 35.5 mmol/L (22.0-26.0) H Arterial Blood Oxygen Saturation 97.0 % (95-100) Arterial Blood Base Excess 8.7 (-2-2) H Francisco Test Positive Test 08/04/20 13:29 08/04/20 15:35 08/04/20 17:56 08/04/20 21:29 POC Whole Blood Glucose 217 MG/DL (74-106) H 223 MG/DL (74-106) H 246 MG/DL (74-106) H Arterial Blood pH 7.211 (7.350-7.450) Arterial Blood Partial Pressure CO2 80.1 mmHg (35.0-45.0) *H Arterial Blood Partial Pressure O2 29.8 mmHg (75.0-100.0) Arterial Blood HCO3 31.4 mmol/L (22.0-26.0) H Arterial Blood Oxygen Saturation 47.8 % (95-100) *L Arterial Blood Base Excess 1.4 (-2-2) Francisco Test Positive Objective HEAD AND NECK: Orally intubated. LUNGS: Decreased breath sounds and coarse rhonchi. CARDIOVASCULAR: Regular S1 and S2 with no gallop or murmur. ABDOMEN: Soft. EXTREMITIES: No pitting edema. Jeancarlos Carranza MD Aug 04, 2020 21:48
--- NOTE | 2020-08-04 21:57 | General Progress Note ---
Subjective ROS Limited/Unobtainable: Yes Allergies: Coded Allergies: No Known Allergies (Unverified , 07/21/20) Objective Last 24 Hour Vital Signs Date Time Temp Pulse Resp B/P (MAP) Pulse Ox O2 Delivery O2 Flow Rate FiO2 08/04/20 21:00 25 92/59 Mechanical Ventilator 100 08/04/20 21:00 22 Mechanical Ventilator 100 08/04/20 20:07 28 Mechanical Ventilator 100.0 100 08/04/20 20:00 22 98/65 Mechanical Ventilator 100 08/04/20 20:00 22 Mechanical Ventilator 100 08/04/20 19:45 22 92/63 Mechanical Ventilator 100 08/04/20 19:45 22 Mechanical Ventilator 100 08/04/20 19:05 142 27 100 08/04/20 19:00 28 89/62 Mechanical Ventilator 100 08/04/20 19:00 28 Mechanical Ventilator 100 08/04/20 19:00 153 21 89/62 (71) 89 08/04/20 18:48 100.1 08/04/20 18:30 155 23 110/67 (81) 86 08/04/20 18:19 76/52 08/04/20 18:00 154 18 76/52 (60) 70 08/04/20 18:00 28 91/56 Mechanical Ventilator 100 08/04/20 18:00 28 Mechanical Ventilator 100 08/04/20 17:30 161 25 91/56 (68) 70 08/04/20 17:00 164 25 102/59 (73) 63 08/04/20 17:00 25 102/59 Mechanical Ventilator 100 08/04/20 17:00 28 Mechanical Ventilator 100 08/04/20 16:30 166 23 97/58 (71) 52 08/04/20 16:00 168 08/04/20 16:00 100.0 167 22 106/58 (74) 49 08/04/20 16:00 100 08/04/20 16:00 28 106/58 Mechanical Ventilator 100 08/04/20 16:00 28 Mechanical Ventilator 100 08/04/20 16:00 Mechanical Ventilator 08/04/20 15:36 164 28 97/61 (73) 31 08/04/20 15:30 165 21 89/58 (68) 26 08/04/20 15:00 165 21 114/60 (78) 31 08/04/20 15:00 28 114/60 Mechanical Ventilator 100 08/04/20 15:00 28 Mechanical Ventilator 100 08/04/20 14:30 167 23 103/64 (77) 35 08/04/20 14:00 28 114/71 Mechanical Ventilator 100 08/04/20 14:00 28 Mechanical Ventilator 100 08/04/20 14:00 163 27 114/71 (85) 30 08/04/20 13:30 146 24 121/68 (85) 55 08/04/20 13:05 162 29 100 08/04/20 13:00 28 112/63 Mechanical Ventilator 100 08/04/20 13:00 28 Mechanical Ventilator 100 08/04/20 13:00 154 23 112/63 (79) 44 08/04/20 12:30 156 18 108/68 (81) 31 08/04/20 12:00 134 08/04/20 12:00 28 149/79 Mechanical Ventilator 100 08/04/20 12:00 28 Mechanical Ventilator 100 08/04/20 12:00 100 08/04/20 12:00 98.1 134 29 149/79 (102) 62 08/04/20 12:00 Mechanical Ventilator 08/04/20 11:45 28 101/59 Mechanical Ventilator 100 08/04/20 11:45 28 Mechanical Ventilator 100 08/04/20 11:30 27 Mechanical Ventilator 100 08/04/20 11:30 150 28 101/59 (73) 39 08/04/20 11:15 28 Mechanical Ventilator 100 08/04/20 11:00 28 Mechanical Ventilator 100 08/04/20 11:00 28 135/63 Mechanical Ventilator 100 08/04/20 11:00 141 26 135/63 (87) 40 08/04/20 10:45 31 Mechanical Ventilator 100 08/04/20 10:45 22 135/63 Mechanical Ventilator 100 08/04/20 10:30 154 33 135/63 (87) 37 08/04/20 10:30 30 135/63 Mechanical Ventilator 100 08/04/20 10:30 33 135/63 Mechanical Ventilator 100 08/04/20 10:15 33 161/74 Mechanical Ventilator 100 08/04/20 10:00 33 161/74 Mechanical Ventilator 100 08/04/20 10:00 151 32 161/74 (103) 50 08/04/20 09:45 31 171/74 Mechanical Ventilator 100 08/04/20 09:30 147 30 171/74 (106) 69 08/04/20 09:30 31 171/74 Mechanical Ventilator 31 08/04/20 09:30 31 171/74 Mechanical Ventilator 100 08/04/20 09:15 32 178/88 Mechanical Ventilator 100 08/04/20 09:00 142 29 178/88 (118) 70 08/04/20 09:00 30 178/88 Mechanical Ventilator 100 08/04/20 08:45 30 222/89 Mechanical Ventilator 100 08/04/20 08:30 137 31 222/89 (133) 90 08/04/20 08:30 30 222/89 Mechanical Ventilator 100 08/04/20 08:30 30 222/89 Mechanical Ventilator 100 08/04/20 08:15 30 220/77 Mechanical Ventilator 100 08/04/20 08:00 Mechanical Ventilator 08/04/20 08:00 128 08/04/20 08:00 30 220/77 Mechanical Ventilator 100 08/04/20 08:00 97.8 128 26 220/77 (124) 99 08/04/20 08:00 100 08/04/20 07:45 27 220/77 Mechanical Ventilator 100 08/04/20 07:30 93 27 190/70 (110) 99 08/04/20 07:30 35 190/70 Mechanical Ventilator 100 08/04/20 07:30 35 190/70 Mechanical Ventilator 100 08/04/20 07:00 26 161/62 Mechanical Ventilator 100 08/04/20 07:00 92 26 161/62 (95) 96 08/04/20 06:31 26 140/59 Mechanical Ventilator 100 08/04/20 06:30 71 26 140/59 (86) 99 08/04/20 06:30 97 27 100 08/04/20 06:25 26 159/61 Mechanical Ventilator 100 08/04/20 06:00 26 159/61 Mechanical Ventilator 100 08/04/20 06:00 53 26 159/61 (93) 100 08/04/20 05:31 26 134/59 Mechanical Ventilator 100 08/04/20 05:30 60 26 134/59 (84) 100 08/04/20 05:00 26 133/60 Mechanical Ventilator 100 08/04/20 05:00 63 26 133/60 (84) 99 08/04/20 04:31 26 132/58 Mechanical Ventilator 100 08/04/20 04:30 59 26 132/58 (82) 100 08/04/20 04:12 60 08/04/20 04:00 Mechanical Ventilator 08/04/20 04:00 26 126/60 Mechanical Ventilator 100 08/04/20 04:00 98.8 62 26 126/60 (82) 100 08/04/20 04:00 100 08/04/20 03:31 26 136/62 Mechanical Ventilator 100 08/04/20 03:30 63 26 136/62 (86) 100 08/04/20 03:00 26 131/58 Mechanical Ventilator 100 08/04/20 03:00 65 26 131/58 (82) 99 08/04/20 02:33 26 139/61 Mechanical Ventilator 100 08/04/20 02:33 26 139/61 Mechanical Ventilator 100 08/04/20 02:31 26 141/61 Mechanical Ventilator 100 08/04/20 02:30 63 26 141/61 (87) 99 08/04/20 02:00 26 139/61 Mechanical Ventilator 100 08/04/20 02:00 61 26 139/61 (87) 100 08/04/20 01:31 26 140/62 Mechanical Ventilator 100 08/04/20 01:30 63 26 140/62 (88) 100 08/04/20 01:27 69 26 100 08/04/20 01:00 64 26 143/61 (88) 99 08/04/20 01:00 26 143/61 Mechanical Ventilator 100 08/04/20 00:31 26 140/61 Mechanical Ventilator 100 08/04/20 00:30 64 26 140/61 (87) 99 08/04/20 00:00 100 08/04/20 00:00 26 137/59 Mechanical Ventilator 100 08/04/20 00:00 99.0 66 26 137/59 (85) 99 08/04/20 00:00 Mechanical Ventilator 08/03/20 23:43 67 08/03/20 23:31 26 130/57 Mechanical Ventilator 100 08/03/20 23:30 66 26 130/57 (81) 98 08/03/20 23:00 26 135/58 Mechanical Ventilator 100 08/03/20 23:00 67 26 135/58 (83) 98 08/03/20 22:31 26 142/61 Mechanical Ventilator 100 08/03/20 22:30 69 26 142/61 (88) 99 08/03/20 22:29 78 26 100 08/03/20 22:00 76 26 151/63 (92) 100 08/03/20 22:00 26 151/63 Mechanical Ventilator 100 Intake and Output 08/03/20 08/04/20 19:00 07:00 Intake Total 1982.892 ml 1860.915 ml Output Total 485 ml 525 ml Balance 1497.892 ml 1335.915 ml Free Water 60 ml IV Total 1502.892 ml 1380.915 ml Tube Feeding 420 ml 420 ml Other 60 ml Output Urine Total 485 ml 525 ml Laboratory Tests 08/04/20 00:15: POC Whole Blood Glucose 157H 08/04/20 04:35: White Blood Count 11.4H, Red Blood Count 3.46L, Hemoglobin 10.4L, Hematocrit 30.7L, Mean Corpuscular Volume 89, Mean Corpuscular Hemoglobin 30.0, Mean Corpuscular Hemoglobin Concent 33.8, Red Cell Distribution Width 14.5, Platelet Count 181, Mean Platelet Volume 6.5, Neutrophils (%) (Auto) , Lymphocytes (%) (Auto) , Monocytes (%) (Auto) , Eosinophils (%) (Auto) , Basophils (%) (Auto) , Differential Total Cells Counted 100, Neutrophils % (Manual) 90H, Lymphocytes % (Manual) 4L, Monocytes % (Manual) 6, Eosinophils % (Manual) 0, Basophils % (M anual) 0, Band Neutrophils 0, Platelet Estimate Adequate, Platelet Morphology Normal, Anisocytosis 1+, Sodium Level 147H, Potassium Level 4.1, Chloride Level 112H, Carbon Dioxide Level 35H, Anion Gap 0L, Blood Urea Nitrogen 29H, Creatinine 0.7, Estimat Glomerular Filtration Rate > 60, Glucose Level 130H, Hemoglobin A1c 11.5H, Uric Acid 2.4L, Calcium Level 7.2L, Phosphorus Level 2.5, Magnesium Level 2.6H, Total Bilirubin 0.2, Aspartate Amino Transf (AST/SGOT) 25, Alanine Aminotransferase (ALT/SGPT) 18, Alkaline Phosphatase 103, C-Reactive Pro tein, Quantitative 10.8H, Pro-B-Type Natriuretic Peptide 592H, Total Protein 5.1L, Albumin 1.1L, Globulin 4.0, Albumin/Globulin Ratio 0.3L, Triglycerides Level 295H 08/04/20 07:30: Arterial Blood pH 7.390, Arterial Blood Partial Pressure CO2 59.8*H, Arterial Blood Partial Pressure O2 95.8, Arterial Blood HCO3 35.5H, Arterial Blood Oxygen Saturation 97.0, Arterial Blood Base Excess 8.7H, Francisco Test Positive 08/04/20 09:01: POC Whole Blood Glucose 167H 08/04/20 13:29: POC Whole Blood Glucose 217H 08/04/20 15:35: Arterial Blood pH 7.211*L, Arterial Blood Partial Pressure CO2 80.1*H, Arterial Blood Partial Pressure O2 29.8*L, Arterial Blood HCO3 31.4H, Arterial Blood Oxygen Saturation 47.8*L, Arterial Blood Base Excess 1.4, Francisco Test Positive 08/04/20 17:56: POC Whole Blood Glucose 223H 08/04/20 21:29: POC Whole Blood Glucose 246H Height (Feet): 5 Height (Inches): 6.00 Weight (Pounds): 172 Assessment/Plan Problem List: (1) Acute respiratory failure with hypoxia ICD Codes: J96.01 - Acute respiratory failure with hypoxia; J12.89 - Other viral pneumonia SNOMED: 50064148, [id number] (2) Pneumonia due to COVID-19 virus ICD Codes: U07.1 - COVID-19; J12.89 - Other viral pneumonia SNOMED: 023761531811936442 (3) Hyperglycemia due to type 2 diabetes mellitus ICD Codes: E11.65 - Type 2 diabetes mellitus with hyperglycemia; J12.89 - Other viral pneumonia SNOMED: 438078323212203, [id number] Qualifiers: Qualified Codes: E11.65 - Type 2 diabetes mellitus with hyperglycemia Status: progressing Assessment/Plan: covid positive pna intubated niddm full netilator support poor prognosis malnutrition Milagro Miller MD Aug 04, 2020 21:57
--- NOTE | 2020-08-04 22:00 | NUR ---
NURSE NOTES: Patient sedated Rass score -2 Right Femoral TLC infusing Fentanyl drip at 400mcg/hr, Versed drip at 6mg/hr, Levophed drip at 12mcg/min and NS at 75cc/hr. BP 103/[address] on property assessment monitor, resp 26 satting 100%. HOB elevated. no s/s of hypo/hyperglycemia. turned and repositioned in bed.Temp 99.9 axillary continue cooling measure. will,continue plan of care.
[2020-08-05] VITALS (64 sets, daily range): BP systolic 57–163; BP diastolic 43–83
[2020-08-05] MEDS: DOPamine 400mg/250ml 250 ML IV SCH
--- NOTE | 2020-08-05 | NUR ---
NURSE NOTES: Patient sedated Rass score -2 Right Femoral TLC infusing Fentanyl drip at 400mcg/hr, Versed drip at 6mg/hr, Levophed drip at 12mcg/min and NS at 75cc/hr. BP 112/65 HR 100 SR on monitor and storage bin tender, resp 26 satting 100%. HOB elevated. no s/s of hypo/hyperglycemia. turned and repositioned in bed.Temp 99.9 axillary continue cooling measure. will,continue plan of care
[2020-08-05] MEDS: fentaNYL 2500mcg/NS 250ml 250 ML IV SCH ×4 (00:19→19:00)
[2020-08-05] MEDS: Norepinephrine 4mg/NS Premix 250 ML IV PRN ×4 (00:19→17:11)
--- NOTE | 2020-08-05 02:00 | NUR ---
NURSE NOTES: Bed bath given tolerated well.
--- NOTE | 2020-08-05 04:00 | NUR ---
NURSE NOTES: Patient sedated Rass score -2 Right Femoral TLC infusing Fentanyl drip at 400mcg/hr, Versed drip at 6mg/hr, Levophed drip at 12mcg/min and NS at 75cc/hr. BP 141/72HR 94 SR on shelter monitor, resp 20 satting 100%. HOB elevated. no s/s of hypo/hyperglycemia. turned and repositioned in bed.Temp 99.4 axillary continue cooling measure. will,continue plan of care
[2020-08-05] MEDS: NS IV SCH ×3 (04:33→19:00)
[2020-08-05] MEDS: MIDAZOLAM FOR DRIP IV SCH ×3 (04:33→19:00)
[2020-08-05 05:57] LABS: ALANINE AMINOTRANSFERASE 57 U/L (12-78); ALBUMIN 1.2 G/DL (3.4-5.0); ALBUMIN/GLOBULIN RATIO 0.3 (1.0-2.7); ALKALINE PHOSPHATASE 135 U/L (46-116); ANION GAP 0 mmol/L (5-15); ASPARTATE AMINO TRANSFERASE 69 U/L (15-37); BILIRUBIN,TOTAL 0.6 MG/DL (0.2-1.0); BLOOD UREA NITROGEN 30 mg/dL (7-18); CALCIUM 7.5 MG/DL (8.5-10.1); CARBON DIOXIDE 34 MMOL/L (21-32); CHLORIDE 115 MMOL/L (98-107); PHOSPHORUS 2.4 MG/DL (2.5-4.9); POTASSIUM 3.6 MMOL/L (3.5-5.1); SODIUM 149 MMOL/L (136-145)
[2020-08-05] MEDS: NovoLOG Insulin Flexpen SUBQ SCH ×4 (06:00→17:43)
--- NOTE | 2020-08-05 06:00 | NUR ---
NURSE NOTES: Blood glucose 95mg/dl.
[2020-08-05] MEDS: Piperacillin/Tazobactam 3.375 GM in NS 110 ML IVPB SCH ×3 (06:40→21:54)
--- NOTE | 2020-08-05 07:15 | NUR ---
NURSE NOTES: Received report from CHARMAINE Leigh. Patient orally intubated; ETT 7.5, 24cm @ the lipline with vent settings of AC:26, TV:450, FiO2:100% PEEP:15, O2sat:99%. Patient is sedated RASS -2; awakens to touch. OGT in place and patent running Vital AF @ 35ml/hr. Miranda catheter in place and draining to urometer. PIV LFA #20g. Right femoral TLC running NS @ 75ml/hr, Fentanyl @ 400mcg/hr and Versed @ 6m/hr. Received and maintained on bilateral soft wrist restraints for safety and to prevent from pulling on lines and tubing. Safety measures in place; bed low, locked and alarm is on. Will continue plan of care.
--- NOTE | 2020-08-05 07:16 | NUR ---
HAND-OFF: Report given to Samaria MONTANO.
[2020-08-05 09:09] LABS: HEMATOCRIT 34.8 % (42.0-52.0); HEMOGLOBIN 11.7 G/DL (14.2-18.0); MEAN CORPUSCULAR VOLUME 89 FL (80-99); PLATELET COUNT 218 K/UL (150-450); RED BLOOD COUNT 3.91 M/UL (4.70-6.10); RED CELL DISTRIBUTION WIDTH 15.3 % (11.6-14.8); WHITE BLOOD COUNT 18.1 K/UL (4.8-10.8)
[2020-08-05] MEDS: Levemir Flexpen SUBQ SCH ×2 (09:09→21:48)
[2020-08-05] MEDS: Solu-MEDROL 40mg Inj IVP SCH ×2 (09:09→20:50)
[2020-08-05] MEDS: Ascorbic Acid 500mg tab NG SCH ×2 (09:09→20:51)
[2020-08-05] MEDS: Pantoprazole Inj IVP SCH (09:09)
--- NOTE | 2020-08-05 09:10 | NUR ---
NURSE NOTES: Awaiting draw for CBC prior to administering Lovenox.
--- NOTE | 2020-08-05 09:27 | NUR ---
RD ASSESSMENT & RECOMMENDATIONS SEE CARE ACTIVITY FOR COMPLETE ASSESSMENT DAILY ESTIMATED NEEDS: Needs based on DM, Critical care/ 68.9kg 22-28 kcals/kg 6578-9518 total kcals 1.2-2 g protein/kg 83-138 g total protein 25-30 mL/kg 8580-5938 total fluid mLs NUTRITION DIAGNOSIS: * Swallowing difficulty R/T respiratory failure as evidenced by s/p code blue on 07/29, orally intubated and sedated. * Altered nutrition related lab values R/T diabetes w/ hyperglycemia as evidenced by elev BGs and POC glu (493, 550 -> 198, 150 ->293 290 330 323 282), A1C of 10.2, U glu 4+, pt on Solumedrol. CURRENT TF:Vital AF 1.2 @ 35ml/hr x 24 hrs-> Glucerna 1.2 per RN ENTERAL NUTRITION RECOMMENDATIONS: Vital AF 1.2 @ goal rate of 55ml/hr x 24 hrs to provide 1320ml, 1584kcal, 107g prot, 1070ml free water * With hemodynamic continue Vital AF for critical care and carb control. * HOB over 30 degrees/ water flush of 180ml q 6hrs Without hemodynamic stability-> rec trophic feeding of Vital AF 1.2 @ 15ml/hr ---- May substitute w/ Glucerna 1.2 if Vital 1.2 is out of stock. Will provide 1320ml, 1584 kcal, 79g pro, 1063ml free H2O. ADDITIONAL RECOMMENDATIONS: * Calibrated bedscale wt- fluctuating daily wts * Monitor lytes, replete as needed * Monitor hemodynamic stability: on Levo @ 12mcg * Monitor BGs: 200's and 300's, Levemir increased per endo * Monitor Diprivan rate, need to adjust TF rate-> NOW OFF
--- NOTE | 2020-08-05 09:43 | Pulmonology Progress Note ---
Subjective ROS Limited/Unobtainable: Yes Interval Events: s/p intubation, sedation, now in ICU Constitutional: Denies: fever HEENT: Repors: no symptoms Respiratory: Reports: no symptoms, dry cough Cardiovascular: Reports: no symptoms; Denies: chest pain, palpitations Gastrointestinal/Abdominal: Reports: no symptoms Musculoskeletal: Reports: other - legs cramps Allergies: Coded Allergies: No Known Allergies (Unverified , 07/21/20) All Systems: reviewed and negative except above Objective Last 24 Hour Vital Signs Date Time Temp Pulse Resp B/P (MAP) Pulse Ox O2 Delivery O2 Flow Rate FiO2 08/05/20 09:00 107 26 114/64 (81) 100 08/05/20 08:30 109 26 116/66 (83) 100 08/05/20 08:00 Mechanical Ventilator 08/05/20 08:00 100 08/05/20 08:00 98.9 109 26 114/65 (81) 99 08/05/20 07:30 109 26 119/70 (86) 99 08/05/20 07:13 106/63 08/05/20 07:00 20 Mechanical Ventilator 100 08/05/20 07:00 114 26 107/60 (76) 99 08/05/20 06:45 105 26 106/63 (77) 99 08/05/20 06:41 26 116/66 Mechanical Ventilator 100.0 100 08/05/20 06:40 26 116/66 Mechanical Ventilator 100 08/05/20 06:30 100 26 113/67 (82) 100 08/05/20 06:27 102 27 163/83 (109) 99 08/05/20 06:00 112 26 80/54 (63) 100 08/05/20 06:00 20 80/54 Mechanical Ventilator 100 08/05/20 06:00 20 Mechanical Ventilator 100 08/05/20 05:30 100 26 117/71 (86) 100 08/05/20 05:00 100 26 116/66 (83) 100 08/05/20 05:00 26 116/66 Mechanical Ventilator 100 08/05/20 05:00 26 Mechanical Ventilator 100 08/05/20 04:33 26 Mechanical Ventilator 100.0 100 08/05/20 04:32 26 Mechanical Ventilator 100 08/05/20 04:30 104 25 120/70 (87) 97 08/05/20 04:00 100 08/05/20 04:00 Mechanical Ventilator 08/05/20 04:00 99.4 105 26 114/67 (83) 100 08/05/20 04:00 26 141/71 Mechanical Ventilator 100 08/05/20 04:00 106 08/05/20 03:30 107 26 109/71 (84) 100 08/05/20 03:00 26 115/64 Mechanical Ventilator 100 08/05/20 03:00 26 Mechanical Ventilator 100 08/05/20 03:00 107 26 122/64 (83) 100 08/05/20 02:00 26 113/69 Mechanical Ventilator 100 08/05/20 02:00 26 Mechanical Ventilator 100 08/05/20 02:00 110 26 107/67 (80) 100 08/05/20 01:01 120 26 100 08/05/20 01:00 120 26 125/66 (85) 100 08/05/20 01:00 28 103/43 Mechanical Ventilator 100 08/05/20 01:00 26 Mechanical Ventilator 100 08/05/20 00:19 104/67 08/05/20 00:19 26 104/67 Mechanical Ventilator 100.0 100 08/05/20 00:18 26 104/67 Mechanical Ventilator 100 08/05/20 00:00 99.9 120 26 113/64 (80) 100 08/05/20 00:00 100 08/05/20 00:00 26 Mechanical Ventilator 100 08/05/20 00:00 104/67 08/05/20 00:00 Mechanical Ventilator 08/05/20 00:00 123 08/04/20 23:00 123 26 110/64 (79) 100 08/04/20 23:00 26 104/67 Mechanical Ventilator 100 08/04/20 23:00 26 Mechanical Ventilator 100 08/04/20 22:00 126 25 101/65 (77) 100 08/04/20 22:00 26 103/63 Mechanical Ventilator 100 08/04/20 22:00 22 Mechanical Ventilator 100 08/04/20 21:45 128 26 103/60 (74) 100 08/04/20 21:31 131 26 96/65 (75) 100 08/04/20 21:30 132 26 89/60 (70) 100 08/04/20 21:15 133 26 86/59 (68) 100 08/04/20 21:00 25 92/59 Mechanical Ventilator 100 08/04/20 21:00 22 Mechanical Ventilator 100 08/04/20 21:00 135 26 92/59 (70) 99 08/04/20 20:45 137 26 97/62 (74) 98 08/04/20 20:30 140 27 96/59 (71) 97 08/04/20 20:15 142 26 98/65 (76) 95 08/04/20 20:07 28 Mechanical Ventilator 100.0 100 08/04/20 20:00 100.0 146 23 95/65 (75) 93 08/04/20 20:00 144 08/04/20 20:00 Mechanical Ventilator 08/04/20 20:00 22 98/65 Mechanical Ventilator 100 08/04/20 20:00 22 Mechanical Ventilator 100 08/04/20 20:00 100 08/04/20 19:57 147 25 92/63 (73) 89 08/04/20 19:45 22 92/63 Mechanical Ventilator 100 08/04/20 19:45 22 Mechanical Ventilator 100 08/04/20 19:45 148 22 85/59 (68) 90 08/04/20 19:32 149 18 93/57 (69) 90 08/04/20 19:30 150 22 87/59 (68) 90 08/04/20 19:18 151 21 89/64 (72) 90 08/04/20 19:15 151 22 88/61 (70) 90 08/04/20 19:05 142 27 100 08/04/20 19:00 28 89/62 Mechanical Ventilator 100 08/04/20 19:00 28 Mechanical Ventilator 100 08/04/20 19:00 153 21 89/62 (71) 89 08/04/20 19:00 153 21 89/62 (71) 89 08/04/20 18:48 100.1 08/04/20 18:30 155 23 110/67 (81) 86 08/04/20 18:19 76/52 08/04/20 18:00 154 18 76/52 (60) 70 08/04/20 18:00 28 91/56 Mechanical Ventilator 100 08/04/20 18:00 28 Mechanical Ventilator 100 08/04/20 17:30 161 25 91/56 (68) 70 08/04/20 17:00 164 25 102/59 (73) 63 08/04/20 17:00 25 102/59 Mechanical Ventilator 100 08/04/20 17:00 28 Mechanical Ventilator 100 08/04/20 16:30 166 23 97/58 (71) 52 08/04/20 16:00 168 08/04/20 16:00 100.0 167 22 106/58 (74) 49 08/04/20 16:00 100 08/04/20 16:00 28 106/58 Mechanical Ventilator 100 08/04/20 16:00 28 Mechanical Ventilator 100 08/04/20 16:00 Mechanical Ventilator 08/04/20 15:36 164 28 97/61 (73) 31 08/04/20 15:30 165 21 89/58 (68) 26 08/04/20 15:00 165 21 114/60 (78) 31 08/04/20 15:00 28 114/60 Mechanical Ventilator 100 08/04/20 15:00 28 Mechanical Ventilator 100 08/04/20 14:30 167 23 103/64 (77) 35 08/04/20 14:00 28 114/71 Mechanical Ventilator 100 08/04/20 14:00 28 Mechanical Ventilator 100 08/04/20 14:00 163 27 114/71 (85) 30 08/04/20 13:30 146 24 121/68 (85) 55 08/04/20 13:05 162 29 100 08/04/20 13:00 28 112/63 Mechanical Ventilator 100 08/04/20 13:00 28 Mechanical Ventilator 100 08/04/20 13:00 154 23 112/63 (79) 44 08/04/20 12:30 156 18 108/68 (81) 31 08/04/20 12:00 134 08/04/20 12:00 28 149/79 Mechanical Ventilator 100 08/04/20 12:00 28 Mechanical Ventilator 100 08/04/20 12:00 100 08/04/20 12:00 98.1 134 29 149/79 (102) 62 08/04/20 12:00 Mechanical Ventilator 08/04/20 11:45 28 101/59 Mechanical Ventilator 100 08/04/20 11:45 28 Mechanical Ventilator 100 08/04/20 11:30 27 Mechanical Ventilator 100 08/04/20 11:30 150 28 101/59 (73) 39 08/04/20 11:15 28 Mechanical Ventilator 100 08/04/20 11:00 28 Mechanical Ventilator 100 08/04/20 11:00 28 135/63 Mechanical Ventilator 100 08/04/20 11:00 141 26 135/63 (87) 40 08/04/20 10:45 31 Mechanical Ventilator 100 08/04/20 10:45 22 135/63 Mechanical Ventilator 100 08/04/20 10:30 154 33 135/63 (87) 37 08/04/20 10:30 30 135/63 Mechanical Ventilator 100 08/04/20 10:30 33 135/63 Mechanical Ventilator 100 08/04/20 10:15 33 161/74 Mechanical Ventilator 100 08/04/20 10:00 33 161/74 Mechanical Ventilator 100 08/04/20 10:00 151 32 161/74 (103) 50 08/04/20 09:45 31 171/74 Mechanical Ventilator 100 Intake and Output 08/04/20 08/05/20 19:00 07:00 Intake Total 2278.310 ml 2626.06 ml Output Total 640 ml 400 ml Balance 1638.310 ml 2226.06 ml Free Water 200 ml IV Total 1538.310 ml 1906.06 ml Tube Feeding 420 ml 420 ml Other 320 ml 100 ml Output Urine Total 640 ml 400 ml General Appearance: no acute distress HEENT: normocephalic Respiratory: chest wall non-tender, crackles/rales, other - Subcu emphysema Cardiovascular: normal peripheral pulses, normal rate Abdomen: normal bowel sounds Extremities: no cyanosis, no clubbing Laboratory Tests 08/04/20 13:29: POC Whole Blood Glucose 217H 08/04/20 15:35: Arterial Blood pH 7.211*L, Arterial Blood Partial Pressure CO2 80.1*H, Arterial Blood Partial Pressure O2 29.8*L, Arterial Blood HCO3 31.4H, Arterial Blood Oxygen Saturation 47.8*L, Arterial Blood Base Excess 1.4, Francisco Test Positive 08/04/20 17:56: POC Whole Blood Glucose 223H 08/04/20 21:29: POC Whole Blood Glucose 246H 08/05/20 04:50: White Blood Count 18.1#H, Red Blood Count 3.91L, Hemoglobin 11.7L, Hematocrit 34.8L, Mean Corpuscular Volume 89, Mean Corpuscular Hemoglobin 29.9, Mean Corpuscular Hemoglobin Concent 33.6, Red Cell Distribution Width 15.3H, Platelet Count 218, Mean Platelet Volume 5.9L, Neutrophils (%) (Auto) , Lymphocytes (%) (Auto) , Monocytes (%) (Auto) , Eosinophils (%) (Auto) , Basophils (%) (Auto) , Neutrophils % (Manual) [Pending], Lymphocytes % (Manual) [Pending], Platelet Estimate [Pending], Platelet Morphology [Pending], Sodium Level 149H, Potassium Level 3.6, Chloride Level 115H, Carbon Dioxide Level 34H, Anion Gap 0L, Blood Urea Nitrogen 30H, Creatinine 1.0, Estimat Glomerular Filtration Rate > 60, Glucose Level 132H, Calcium Level 7.5L, Phosphorus Level 2.4L, Magnesium Level 2.7H, Total Bilirubin 0.6, Aspartate Amino Transf (AST/SGOT) 69H, Alanine Aminotransferase (ALT/SGPT) 57, Alkaline Phosphatase 135H, Total Protein 5.4L, Albumin 1.2L, Globulin 4.2, Albumin/Globulin Ratio 0.3L, Vitamin D 25-Hydroxy [Pending], 25-Hydroxy Vitamin D2 [Pending], 25-Hydroxy Vitamin D3 [Pending] 08/05/20 06:24: POC Whole Blood Glucose 95 Current Medications Medications (Trade) Dose Ordered Sig/Dalia Route PRN Reason Start Time Stop Time Status Last Admin Dose Admin Acetaminophen (Tylenol) 500 mg Q6H PRN ORAL Mild Pain (Pain Scale 1-3) 07/21/20 08:15 08/20/20 08:14 08/01/20 05:39 Acetaminophen (Tylenol) 650 mg Q6H PRN NG Temp >100.5 08/01/20 10:30 08/31/20 10:29 08/04/20 18:18 Ascorbic Acid (Vitamin C) 500 mg EVERY 12 HOURS NG 08/02/20 21:00 08/22/20 08:59 08/05/20 09:09 Atropine Sulfate (Atropine) 1 mg PRN PRN IVP Sustained HR <40 08/04/20 06:30 09/03/20 06:29 Chlorhexidine Gluconate (Hiral-Hex 2%) 1 applic DAILY@1999 TOPIC 07/30/20 20:00 10/28/20 19:59 08/04/20 20:20 Dextrose (Dextrose 50%) 25 ml Q30M PRN IV Hypoglycemia 07/21/20 13:30 10/19/20 13:29 Dextrose (Dextrose 50%) 50 ml Q30M PRN IV Hypoglycemia 07/21/20 13:30 10/19/20 13:29 Enoxaparin Sodium (Lovenox) 40 mg DAILY SUBQ 07/22/20 09:00 10/20/20 08:59 08/04/20 09:13 Fentanyl Citrate 250 ml @ 0 mls/hr Q24H IV 08/04/20 11:30 08/06/20 11:29 08/05/20 06:41 Guaifenesin (Robitussin) 200 mg Q4H PRN ORAL For Cough 07/25/20 12:30 10/23/20 12:29 07/29/20 09:32 Insulin Aspart (NovoLOG) EVERY 6 HOURS SUBQ 08/04/20 00:00 10/19/20 16:29 08/05/20 00:00 Insulin Detemir (Levemir) 20 units EVERY 12 HOURS SUBQ 08/02/20 09:00 10/19/20 20:59 08/05/20 09:09 Lorazepam (Ativan 2mg/ml 1ml) 1 mg Q4H PRN IV For Anxiety 07/29/20 17:15 08/05/20 17:14 08/02/20 05:58 Methylprednisolone Sodium Succinate (Solu-MEDROL) 40 mg EVERY 12 HOURS IVP 08/01/20 12:45 10/30/20 12:44 08/05/20 09:09 Midazolam HCl 50 mg/Sodium Chloride 110 ml @ 0 mls/hr Q24H IV 08/04/20 09:45 08/06/20 09:34 08/05/20 04:33 Mirtazapine (Remeron) 15 mg BEDTIME ORAL 07/22/20 21:00 10/20/20 20:59 08/04/20 20:20 Norepinephrine Bitartrate 250 ml @ 0 mls/hr Q24H PRN IV For hypotension 08/04/20 16:15 08/07/20 16:11 08/05/20 07:13 Pantoprazole (Protonix) 40 mg DAILY IVP 07/30/20 09:00 08/29/20 08:59 08/05/20 09:09 Piperacillin Sod/ Tazobactam Sod 3.375 gm/Sodium Chloride 110 ml @ 27.5 mls/hr EVERY 8 HOURS IVPB 07/30/20 12:00 08/07/20 11:59 08/05/20 06:40 Sodium Chloride 1,000 ml @ 75 mls/hr [id number] IV 07/29/20 22:30 08/28/20 22:29 08/04/20 18:01 Assessment/Plan Assessment/Plan Assessment/Plan 1. COVID-19 pneumonia/Respiratory Failure - On Decadron - on remdesivir per ID specialist - Intubated - On AC mode; FiO2 100 %; PEEP 15 - ABG reviewed - On dopamine; femoral central line in place - on fentanyl and Versed; - CXR 08/04 Marked worsening of bilateral infiltrates 2. Elevated inflammatory markers. 3. Diabetes mellitus. -On insulin as needed 4. DVT prophylaxis - On Lovenox 08/03/20 Had worsening leucocytosis; now improved ABG 7.32/62/70 Continue vent as is; FiO2 100%; PEEP 15 08/05/2020 Notable worsening of bilateral pulmonary infiltrates now has subcu emphysema Has worsening leukocytosis Discussed with elementary educator call today from [facility], DNR expected -Decrease PEEP given subcut emphysema Grave prognosis. Cannot diurese given current Levophed usage Pradeep Fiore MD, MD Aug 05, 2020 09:43
[2020-08-05] MEDS: Enoxaparin 40mg Inj SUBQ SCH (09:49)
--- NOTE | 2020-08-05 09:51 | NUR ---
RESPIRATORY NOTE: Decreased PEEP to +[address] Monique. RN aware. Will continue to monitor.
--- NOTE | 2020-08-05 10:00 | NUR ---
NURSE NOTES: Pt was on the unit assessing pt. Updated him on pt's current condition. PEEP decreased to 10 on ventilator.
--- NOTE | 2020-08-05 12:00 | NUR ---
NURSE NOTES: Blood sugar= 74mg/dL. 60cc orange juice given via OGT to prevent further drop in BS. Pt turned and repositioned for comfort. No fever noted at this time. Pt remains sedated RASS -2 on Fentanyl 400mcg/h and Versed 6mg/hr.
--- NOTE | 2020-08-05 13:00 | NUR ---
NURSE NOTES: Despite Versed and Fentanyl, Pt woke up agitated, fighting the vent, O2sat dropped down to the 30's. Pt maxed on Fentanyl. Versed increased to 8mg/hr
--- NOTE | 2020-08-05 14:23 | Nephrology Progress Note ---
Assessment/Plan Problem List: (1) Pneumonia due to COVID-19 virus (2) Acute respiratory failure with hypoxia (3) Hyperglycemia due to type 2 diabetes mellitus (4) Oliguria Assessment: Likely due to hypotension Assessment Oliguria due to hypotension On low-dose pressors COVID-19 disease seems to be severe. Diabetes mellitus with hyperglycemia. Hypoxic respiratory failure Lymphocytopenia. Sinus tachycardia Leukocytosis Plan August 05: Labs were reviewed. Vitamin D level pending. Patient full code. Intubated on ventilator. Continue per consultants. August 04: Labs reviewed. Discussed with CHARMAINE Mera. Continue to monitor renal parameters. August 03:Labs reviewed. Abnormal electrolytes and chemistries addressed. Continue per consultants. August 02: Labs reviewed. Abnormal electrolytes and chemistries addressed. Continue per consultants. August 01: Labs reviewed. Renal parameters stable. Low phosphorus replaced. Continue per consultants. July 31: Urine output improved. Renal parameters and electrolytes stable. Continue per consultants. Continue per pulmonary Continue per ID Keep the blood pressure over 100 systolic Monitor renal parameters and urine output Avoid nephrotoxic's Per orders Subjective ROS Limited/Unobtainable: Yes Objective Objective Last 24 Hour Vital Signs Date Time Temp Pulse Resp B/P (MAP) Pulse Ox O2 Delivery O2 Flow Rate FiO2 08/05/20 14:03 149 26 105/64 (78) 55 08/05/20 14:00 28 68/48 Mechanical Ventilator 100 08/05/20 14:00 28 Mechanical Ventilator 100 08/05/20 14:00 140 26 68/48 (55) 62 08/05/20 13:55 147 25 89/61 (70) 58 08/05/20 13:52 147 27 71/53 (59) 60 08/05/20 13:45 148 26 77/52 (60) 60 08/05/20 13:30 143 27 85/56 (66) 65 08/05/20 13:15 138 25 114/65 (81) 60 08/05/20 13:02 28 Mechanical Ventilator 100 08/05/20 13:01 122/64 08/05/20 13:01 28 122/64 Mechanical Ventilator 100 08/05/20 13:00 146 26 111/64 (80) 35 08/05/20 13:00 26 122/64 Mechanical Ventilator 100 08/05/20 13:00 28 Mechanical Ventilator 100 08/05/20 12:45 28 Mechanical Ventilator 100 08/05/20 12:45 153 17 122/64 (83) 39 08/05/20 12:30 124 22 159/79 (105) 77 08/05/20 12:30 28 Mechanical Ventilator 100 08/05/20 12:00 100 08/05/20 12:00 Mechanical Ventilator 08/05/20 12:00 98.7 112 26 100/63 (75) 98 08/05/20 12:00 26 100/63 Mechanical Ventilator 100 08/05/20 12:00 26 Mechanical Ventilator 100 08/05/20 11:30 112 26 109/68 (82) 98 08/05/20 11:00 107 25 118/66 (83) 97 08/05/20 11:00 27 118/66 Mechanical Ventilator 100 08/05/20 11:00 26 Mechanical Ventilator 100 08/05/20 10:30 107 27 120/68 (85) 97 08/05/20 10:00 26 122/66 Mechanical Ventilator 100 08/05/20 10:00 26 Mechanical Ventilator 100 08/05/20 10:00 105 27 127/66 (86) 97 08/05/20 09:30 108 26 118/69 (85) 100 08/05/20 09:00 26 120/65 Mechanical Ventilator 100 08/05/20 09:00 26 Mechanical Ventilator 100 08/05/20 09:00 107 26 114/64 (81) 100 08/05/20 08:30 109 26 116/66 (83) 100 08/05/20 08:00 Mechanical Ventilator 08/05/20 08:00 100 08/05/20 08:00 26 114/62 Mechanical Ventilator 100 08/05/20 08:00 26 Mechanical Ventilator 100 08/05/20 08:00 98.9 109 26 114/65 (81) 99 08/05/20 07:30 109 26 119/70 (86) 99 08/05/20 07:13 106/63 08/05/20 07:00 109 26 100 08/05/20 07:00 26 116/64 Mechanical Ventilator 100 08/05/20 07:00 26 Mechanical Ventilator 100 08/05/20 07:00 114 26 107/60 (76) 99 08/05/20 06:45 105 26 106/63 (77) 99 08/05/20 06:41 26 116/66 Mechanical Ventilator 100.0 100 08/05/20 06:40 26 116/66 Mechanical Ventilator 100 08/05/20 06:30 100 26 113/67 (82) 100 08/05/20 06:27 102 27 163/83 (109) 99 08/05/20 06:00 112 26 80/54 (63) 100 08/05/20 06:00 20 80/54 Mechanical Ventilator 100 08/05/20 06:00 20 Mechanical Ventilator 100 08/05/20 05:30 100 26 117/71 (86) 100 08/05/20 05:00 100 26 116/66 (83) 100 08/05/20 05:00 26 116/66 Mechanical Ventilator 100 08/05/20 05:00 26 Mechanical Ventilator 100 08/05/20 04:33 26 Mechanical Ventilator 100.0 100 08/05/20 04:32 26 Mechanical Ventilator 100 08/05/20 04:30 104 25 120/70 (87) 97 08/05/20 04:00 100 08/05/20 04:00 Mechanical Ventilator 08/05/20 04:00 99.4 105 26 114/67 (83) 100 08/05/20 04:00 26 141/71 Mechanical Ventilator 100 08/05/20 04:00 106 08/05/20 03:30 107 26 109/71 (84) 100 08/05/20 03:00 26 115/64 Mechanical Ventilator 100 08/05/20 03:00 26 Mechanical Ventilator 100 08/05/20 03:00 107 26 122/64 (83) 100 08/05/20 02:00 26 113/69 Mechanical Ventilator 100 08/05/20 02:00 26 Mechanical Ventilator 100 08/05/20 02:00 110 26 107/67 (80) 100 08/05/20 01:01 120 26 100 08/05/20 01:00 120 26 125/66 (85) 100 08/05/20 01:00 28 103/43 Mechanical Ventilator 100 08/05/20 01:00 26 Mechanical Ventilator 100 08/05/20 00:19 104/67 08/05/20 00:19 26 104/67 Mechanical Ventilator 100.0 100 08/05/20 00:18 26 104/67 Mechanical Ventilator 100 08/05/20 00:00 99.9 120 26 113/64 (80) 100 08/05/20 00:00 100 08/05/20 00:00 26 Mechanical Ventilator 100 08/05/20 00:00 104/67 08/05/20 00:00 Mechanical Ventilator 08/05/20 00:00 123 08/04/20 23:00 123 26 110/64 (79) 100 08/04/20 23:00 26 104/67 Mechanical Ventilator 100 08/04/20 23:00 26 Mechanical Ventilator 100 08/04/20 22:00 126 25 101/65 (77) 100 08/04/20 22:00 26 103/63 Mechanical Ventilator 100 08/04/20 22:00 22 Mechanical Ventilator 100 08/04/20 21:45 128 26 103/60 (74) 100 08/04/20 21:31 131 26 96/65 (75) 100 08/04/20 21:30 132 26 89/60 (70) 100 08/04/20 21:15 133 26 86/59 (68) 100 08/04/20 21:00 25 92/59 Mechanical Ventilator 100 08/04/20 21:00 22 Mechanical Ventilator 100 08/04/20 21:00 135 26 92/59 (70) 99 08/04/20 20:45 137 26 97/62 (74) 98 08/04/20 20:30 140 27 96/59 (71) 97 08/04/20 20:15 142 26 98/65 (76) 95 08/04/20 20:07 28 Mechanical Ventilator 100.0 100 08/04/20 20:00 100.0 146 23 95/65 (75) 93 08/04/20 20:00 144 08/04/20 20:00 Mechanical Ventilator 08/04/20 20:00 22 98/65 Mechanical Ventilator 100 08/04/20 20:00 22 Mechanical Ventilator 100 08/04/20 20:00 100 08/04/20 19:57 147 25 92/63 (73) 89 08/04/20 19:45 22 92/63 Mechanical Ventilator 100 08/04/20 19:45 22 Mechanical Ventilator 100 08/04/20 19:45 148 22 85/59 (68) 90 08/04/20 19:32 149 18 93/57 (69) 90 08/04/20 19:30 150 22 87/59 (68) 90 08/04/20 19:18 151 21 89/64 (72) 90 08/04/20 19:15 151 22 88/61 (70) 90 08/04/20 19:05 142 27 100 08/04/20 19:00 28 89/62 Mechanical Ventilator 100 08/04/20 19:00 28 Mechanical Ventilator 100 08/04/20 19:00 153 21 89/62 (71) 89 08/04/20 19:00 153 21 89/62 (71) 89 08/04/20 18:48 100.1 08/04/20 18:30 155 23 110/67 (81) 86 08/04/20 18:19 76/52 08/04/20 18:00 154 18 76/52 (60) 70 08/04/20 18:00 28 91/56 Mechanical Ventilator 100 08/04/20 18:00 28 Mechanical Ventilator 100 08/04/20 17:30 161 25 91/56 (68) 70 08/04/20 17:00 164 25 102/59 (73) 63 08/04/20 17:00 25 102/59 Mechanical Ventilator 100 08/04/20 17:00 28 Mechanical Ventilator 100 08/04/20 16:30 166 23 97/58 (71) 52 08/04/20 16:00 168 08/04/20 16:00 100.0 167 22 106/58 (74) 49 08/04/20 16:00 100 08/04/20 16:00 28 106/58 Mechanical Ventilator 100 08/04/20 16:00 28 Mechanical Ventilator 100 08/04/20 16:00 Mechanical Ventilator 08/04/20 15:36 164 28 97/61 (73) 31 08/04/20 15:30 165 21 89/58 (68) 26 08/04/20 15:00 165 21 114/60 (78) 31 08/04/20 15:00 28 114/60 Mechanical Ventilator 100 08/04/20 15:00 28 Mechanical Ventilator 100 08/04/20 14:30 167 23 103/64 (77) 35 Intake and Output 08/04/20 08/05/20 18:59 06:59 Intake Total 2220.385 ml 2752.985 ml Output Total 595 ml 435 ml Balance 1625.385 ml 2317.985 ml Free Water 200 ml IV Total 1480.385 ml 2032.985 ml Tube Feeding 420 ml 420 ml Other 320 ml 100 ml Output Urine Total 595 ml 435 ml Laboratory Tests 08/04/20 15:35: Arterial Blood pH 7.211*L, Arterial Blood Partial Pressure CO2 80.1*H, Arterial Blood Partial Pressure O2 29.8*L, Arterial Blood HCO3 31.4H, Arterial Blood Oxygen Saturation 47.8*L, Arterial Blood Base Excess 1.4, Francisco Test Positive 08/04/20 17:56: POC Whole Blood Glucose 223H 08/04/20 21:29: POC Whole Blood Glucose 246H 08/05/20 04:50: White Blood Count 18.1#H, Red Blood Count 3.91L, Hemoglobin 11.7L, Hematocrit 34.8L, Mean Corpuscular Volume 89, Mean Corpuscular Hemoglobin 29.9, Mean Corpuscular Hemoglobin Concent 33.6, Red Cell Distribution Width 15.3H, Platelet Count 218, Mean Platelet Volume 5.9L, Neutrophils (%) (Auto) , Lymphocytes (%) (Auto) , Monocytes (%) (Auto) , Eosinophils (%) (Auto) , Basophils (%) (Auto) , Differential Total Cells Counted 100, Neutrophils % (Manual) 70, Lymphocytes % (Manual) 17L, Monocytes % (Manual) 1, Eosinophils % (Manual) 1, Basophils % (Manual) 0, Band Neutrophils 11H, Platelet Estimate Adequate, Platelet Morphology Normal, Anisocytosis 1+, Sodium Level 149H, Potassium Level 3.6, Chloride Level 115H, Carbon Dioxide Level 34H, Anion Gap 0L, Blood Urea Nitrogen 30H, Creatinine 1.0, Estimat Glomerular Filtration Rate > 60, Glucose Level 132H , Calcium Level 7.5L, Phosphorus Level 2.4L, Magnesium Level 2.7H, Total Bilirubin 0.6, Aspartate Amino Transf (AST/SGOT) 69H, Alanine Aminotransferase (ALT/SGPT) 57, Alkaline Phosphatase 135H, Total Protein 5.4L, Albumin 1.2L, Globulin 4.2, Albumin/Globulin Ratio 0.3L, Vitamin D 25-Hydroxy [Pending], 25- Hydroxy Vitamin D2 [Pending], 25-Hydroxy Vitamin D3 [Pending] 08/05/20 06:24: POC Whole Blood Glucose 95 08/05/20 11:50: POC Whole Blood Glucose 74 08/05/20 12:47: Arterial Blood pH 7.297L, Arterial Blood Partial Pressure CO2 68.5*H, Arterial Blood Partial Pressure O2 32.7*L, Arterial Blood HCO3 32.7H, Arterial Blood Oxygen Saturation 63.7*L, Arterial Blood Base Excess 4.3H, Francisco Test Positive Height (Feet): 5 Height (Inches): 6.00 Weight (Pounds): 172 General Appearance: no apparent distress EENT: other - Intubated on ventilator Cardiovascular: tachycardia Respiratory/Chest: decreased breath sounds Abdomen: distended José Luis Preciado MD Aug 05, 2020 14:23
[2020-08-05] MEDS ORDERED: Potassium Phosphate 21 MM in NS 275 ML IV ONE (14:30)
--- NOTE | 2020-08-05 15:00 | NUR ---
NURSE NOTES: Pt is hemodynamically unstable. Levophed increased d/t dropping B/P and O2sat remains between 50-60%, with good pleth on lunchroom monitor.
[2020-08-05] MEDS: Acetaminophen 650mg/20.3ml NG PRN (16:49)
--- NOTE | 2020-08-05 16:50 | NUR ---
NURSE NOTES: Pt's O2sat slowly increasing. Currently 75%. Tylenol 650 MG given via OGT for temp of 100.7. Ice packs applied.
--- NOTE | 2020-08-05 18:00 | NUR ---
NURSE NOTES: Pt fully cleaned and linens changed. No BM noted at this time. Pt remains on Levophed @ 18mcg/min, Versed 8mg/hr, and Fentanyl 400mcg/hr. O2sat improving, reading 83% on pvc monitor.
--- NOTE | 2020-08-05 19:30 | NUR ---
NURSE NOTES: received report from CHARMAINE Mera.
--- NOTE | 2020-08-05 20:00 | NUR ---
NURSE NOTES: received patient in bed saturation on 86-90% with Fi02 100%. patient code status is full code. patient orally intubated. HOB elevated. OGt intact no residual. no s/s of hypo/hyperglycemia. repositioned in bed. right Femoral TLC intact infusing NS at 75cc/hr, Levophed drip at 26mcg/min, Versed drip at 10mg/hr and Fentanyl drip at 400mcg/hr RASS score of -2. Miranda draining. NKA. frequent visual checks continued. Covid +. Airborne precaution maintained and observed. will continue plan of care.
[2020-08-05] MEDS: Dyna-Hex 2% Top Sol 2oz TOPIC SCH (20:50)
--- NOTE | 2020-08-05 22:00 | NUR ---
NURSE NOTES: Patient in bed saturation on 90% with Fi02 100%. Suctioned and oral care provided. HOB elevated. OGt intact no residual. no s/s of hypo/hyperglycemia. repositioned in bed. right Femoral TLC intact infusing NS at 75cc/hr, Levophed drip at 26mcg/min, Versed drip at 10mg/hr and Fentanyl drip at 400mcg/hr RASS score of -2. Miranda draining. NKA. frequent visual checks continued. Covid +. Airborne precaution maintained and observed. will continue plan of care.
--- NOTE | 2020-08-05 22:25 | General Progress Note ---
Subjective ROS Limited/Unobtainable: Yes Allergies: Coded Allergies: No Known Allergies (Unverified , 07/21/20) Objective Last 24 Hour Vital Signs Date Time Temp Pulse Resp B/P (MAP) Pulse Ox O2 Delivery O2 Flow Rate FiO2 08/05/20 20:35 57/43 08/05/20 20:15 136 26 106/69 (81) 89 08/05/20 20:00 100 08/05/20 20:00 25 106/69 Mechanical Ventilator 100 08/05/20 20:00 25 Mechanical Ventilator 100 08/05/20 20:00 98.1 136 26 109/69 (82) 88 08/05/20 20:00 Mechanical Ventilator 08/05/20 19:45 25 Mechanical Ventilator 100 08/05/20 19:30 136 26 100 08/05/20 19:00 26 90/61 Mechanical Ventilator 100 08/05/20 19:00 26 Mechanical Ventilator 100 08/05/20 19:00 141 26 100/65 (77) 86 08/05/20 18:34 143 26 90/62 (71) 85 08/05/20 18:30 143 26 89/61 (70) 85 08/05/20 18:00 26 87/64 Mechanical Ventilator 100 08/05/20 18:00 26 Mechanical Ventilator 100 08/05/20 18:00 144 26 92/66 (75) 83 08/05/20 17:30 147 26 92/65 (74) 80 08/05/20 17:19 100.0 08/05/20 17:15 148 26 94/63 (73) 76 08/05/20 17:11 89/64 08/05/20 17:10 149 26 89/64 (72) 79 08/05/20 17:00 26 89/65 Mechanical Ventilator 100 08/05/20 17:00 26 Mechanical Ventilator 100 08/05/20 17:00 148 26 89/65 (73) 76 08/05/20 16:30 152 27 94/57 (69) 72 08/05/20 16:00 Mechanical Ventilator 08/05/20 16:00 100.7 149 28 93/67 (76) 69 08/05/20 16:00 26 99/65 Mechanical Ventilator 100 08/05/20 16:00 26 Mechanical Ventilator 100 08/05/20 16:00 100 08/05/20 16:00 149 08/05/20 15:30 150 25 102/61 (75) 64 08/05/20 15:20 149 26 100 08/05/20 15:00 26 106/69 Mechanical Ventilator 100 08/05/20 15:00 26 Mechanical Ventilator 100 08/05/20 15:00 148 25 106/69 (81) 67 08/05/20 14:45 146 26 118/63 (81) 66 08/05/20 14:30 144 26 149/75 (99) 65 08/05/20 14:03 149 26 105/64 (78) 55 08/05/20 14:00 28 68/48 Mechanical Ventilator 100 08/05/20 14:00 28 Mechanical Ventilator 100 08/05/20 14:00 140 26 68/48 (55) 62 08/05/20 13:55 147 25 89/61 (70) 58 08/05/20 13:52 147 27 71/53 (59) 60 08/05/20 13:45 148 26 77/52 (60) 60 08/05/20 13:30 143 27 85/56 (66) 65 08/05/20 13:15 138 25 114/65 (81) 60 08/05/20 13:02 28 Mechanical Ventilator 100 08/05/20 13:01 122/64 08/05/20 13:01 28 122/64 Mechanical Ventilator 100 08/05/20 13:00 146 26 111/64 (80) 35 08/05/20 13:00 26 122/64 Mechanical Ventilator 100 08/05/20 13:00 28 Mechanical Ventilator 100 08/05/20 12:45 28 Mechanical Ventilator 100 08/05/20 12:45 153 17 122/64 (83) 39 08/05/20 12:30 124 22 159/79 (105) 77 08/05/20 12:30 28 Mechanical Ventilator 100 08/05/20 12:00 100 08/05/20 12:00 Mechanical Ventilator 08/05/20 12:00 98.7 112 26 100/63 (75) 98 08/05/20 12:00 26 100/63 Mechanical Ventilator 100 08/05/20 12:00 26 Mechanical Ventilator 100 08/05/20 12:00 111 08/05/20 11:30 112 26 109/68 (82) 98 08/05/20 11:20 107 26 100 08/05/20 11:00 107 25 118/66 (83) 97 08/05/20 11:00 27 118/66 Mechanical Ventilator 100 08/05/20 11:00 26 Mechanical Ventilator 100 08/05/20 10:30 107 27 120/68 (85) 97 08/05/20 10:00 26 122/66 Mechanical Ventilator 100 08/05/20 10:00 26 Mechanical Ventilator 100 08/05/20 10:00 105 27 127/66 (86) 97 08/05/20 09:30 108 26 118/69 (85) 100 08/05/20 09:00 26 120/65 Mechanical Ventilator 100 08/05/20 09:00 26 Mechanical Ventilator 100 08/05/20 09:00 107 26 114/64 (81) 100 08/05/20 08:30 109 26 116/66 (83) 100 08/05/20 08:00 114 08/05/20 08:00 Mechanical Ventilator 08/05/20 08:00 100 08/05/20 08:00 26 114/62 Mechanical Ventilator 100 08/05/20 08:00 26 Mechanical Ventilator 100 08/05/20 08:00 98.9 109 26 114/65 (81) 99 08/05/20 07:30 109 26 119/70 (86) 99 08/05/20 07:13 106/63 08/05/20 07:00 109 26 100 08/05/20 07:00 26 116/64 Mechanical Ventilator 100 08/05/20 07:00 26 Mechanical Ventilator 100 08/05/20 07:00 114 26 107/60 (76) 99 08/05/20 06:45 105 26 106/63 (77) 99 08/05/20 06:41 26 116/66 Mechanical Ventilator 100.0 100 08/05/20 06:40 26 116/66 Mechanical Ventilator 100 08/05/20 06:30 100 26 113/67 (82) 100 08/05/20 06:27 102 27 163/83 (109) 99 08/05/20 06:00 112 26 80/54 (63) 100 08/05/20 06:00 20 80/54 Mechanical Ventilator 100 08/05/20 06:00 20 Mechanical Ventilator 100 08/05/20 05:30 100 26 117/71 (86) 100 08/05/20 05:00 100 26 116/66 (83) 100 08/05/20 05:00 26 116/66 Mechanical Ventilator 100 08/05/20 05:00 26 Mechanical Ventilator 100 08/05/20 04:33 26 Mechanical Ventilator 100.0 100 08/05/20 04:32 26 Mechanical Ventilator 100 08/05/20 04:30 104 25 120/70 (87) 97 08/05/20 04:00 100 08/05/20 04:00 Mechanical Ventilator 08/05/20 04:00 99.4 105 26 114/67 (83) 100 08/05/20 04:00 26 141/71 Mechanical Ventilator 100 08/05/20 04:00 106 08/05/20 03:30 107 26 109/71 (84) 100 08/05/20 03:00 26 115/64 Mechanical Ventilator 100 08/05/20 03:00 26 Mechanical Ventilator 100 08/05/20 03:00 107 26 122/64 (83) 100 08/05/20 02:00 26 113/69 Mechanical Ventilator 100 08/05/20 02:00 26 Mechanical Ventilator 100 08/05/20 02:00 110 26 107/67 (80) 100 08/05/20 01:01 120 26 100 08/05/20 01:00 120 26 125/66 (85) 100 08/05/20 01:00 28 103/43 Mechanical Ventilator 100 08/05/20 01:00 26 Mechanical Ventilator 100 08/05/20 00:19 104/67 08/05/20 00:19 26 104/67 Mechanical Ventilator 100.0 100 08/05/20 00:18 26 104/67 Mechanical Ventilator 100 08/05/20 00:00 99.9 120 26 113/64 (80) 100 08/05/20 00:00 100 08/05/20 00:00 26 Mechanical Ventilator 100 08/05/20 00:00 104/67 08/05/20 00:00 Mechanical Ventilator 08/05/20 00:00 123 08/04/20 23:00 123 26 110/64 (79) 100 08/04/20 23:00 26 104/67 Mechanical Ventilator 100 08/04/20 23:00 26 Mechanical Ventilator 100 Intake and Output 08/04/20 08/05/20 19:00 07:00 Intake Total 2278.310 ml 2736.02 ml Output Total 640 ml 400 ml Balance 1638.310 ml 2336.02 ml Free Water 200 ml IV Total 1538.310 ml 2016.02 ml Tube Feeding 420 ml 420 ml Other 320 ml 100 ml Output Urine Total 640 ml 400 ml Laboratory Tests 08/05/20 04:50: White Blood Count 18.1#H, Red Blood Count 3.91L, Hemoglobin 11.7L, Hematocrit 34.8L, Mean Corpuscular Volume 89, Mean Corpuscular Hemoglobin 29.9, Mean Corpuscular Hemoglobin Concent 33.6, Red Cell Distribution Width 15.3H, Platelet Count 218, Mean Platelet Volume 5.9L, Neutrophils (%) (Auto) , Lymphocytes (%) (Auto) , Monocytes (%) (Auto) , Eosinophils (%) (Auto) , Basophils (%) (Auto) , Differential Total Cells Counted 100, Neutrophils % (Manual) 70, Lymphocytes % (Manual) 17L, Monocytes % (Manual) 1, Eosinophils % (Manual) 1, Basophils % (Manual) 0, Band Neutrophils 11H, Platelet Estimate Adequate, Platelet Morphology Normal, Anisocytosis 1+, Sodium Level 149H, Potassium Level 3.6, Chloride Level 115H, Carbon Dioxide Level 34H, Anion Gap 0L, Blood Urea Nitrogen 30H, Creatinine 1.0, Estimat Glomerular Filtration Rate > 60, Glucose Level 132H , Calcium Level 7.5L, Phosphorus Level 2.4L, Magnesium Level 2.7H, Total Bilirubin 0.6, Aspartate Amino Transf (AST/SGOT) 69H, Alanine Aminotransferase (ALT/SGPT) 57, Alkaline Phosphatase 135H, Total Protein 5.4L, Albumin 1.2L, Globulin 4.2, Albumin/Globulin Ratio 0.3L, Vitamin D 25-Hydroxy [Pending], 25- Hydroxy Vitamin D2 [Pending], 25-Hydroxy Vitamin D3 [Pending] 08/05/20 06:24: POC Whole Blood Glucose 95 08/05/20 11:50: POC Whole Blood Glucose 74 08/05/20 12:47: Arterial Blood pH 7.297L, Arterial Blood Partial Pressure CO2 68.5*H, Arterial Blood Partial Pressure O2 32.7*L, Arterial Blood HCO3 32.7H, Arterial Blood Oxygen Saturation 63.7*L, Arterial Blood Base Excess 4.3H, [place] Test Positive Height (Feet): 5 Height (Inches): 6.00 Weight (Pounds): 172 Assessment/Plan Problem List: (1) Acute respiratory failure with hypoxia ICD Codes: J96.01 - Acute respiratory failure with hypoxia; J12.89 - Other viral pneumonia SNOMED: 10390498, 219230953 (2) Pneumonia due to COVID-19 virus ICD Codes: U07.1 - COVID-19; J12.89 - Other viral pneumonia SNOMED: 600808155736450740 (3) Hyperglycemia due to type 2 diabetes mellitus ICD Codes: E11.65 - Type 2 diabetes mellitus with hyperglycemia; J12.89 - Other viral pneumonia SNOMED: 814711701211047, 18703587 Qualifiers: Qualified Codes: E11.65 - Type 2 diabetes mellitus with hyperglycemia Status: progressing Assessment/Plan: covid positive pna intubated niddm labile sugar not improving poor prognosis Milagro Miller MD Aug 05, 2020 22:25
[2020-08-06] VITALS (64 sets, daily range): BP systolic 34–150; BP diastolic 13–94
[2020-08-06] MEDS: NovoLOG Insulin Flexpen SUBQ SCH
--- NOTE | 2020-08-06 | NUR ---
NURSE NOTES: turned and repositioned patient in bed. Blood glucose 130mg/dl. no insulin given per sliding scale. oral care provided. comfort measure provided, will continue plan of acre.
[2020-08-06] MEDS: NS IV SCH (00:13)
[2020-08-06] MEDS: MIDAZOLAM FOR DRIP IV SCH (00:13)
--- NOTE | 2020-08-06 00:45 | Psychiatric Progress Note ---
Psychiatry Progress Note Psychiatry Progress Note Subjective no new changes calm Medications Current Medications Medications (Trade) Dose Ordered Sig/Dalia Route PRN Reason Start Time Stop Time Status Last Admin Dose Admin Acetaminophen (Tylenol) 500 mg Q6H PRN ORAL Mild Pain (Pain Scale 1-3) 07/21/20 08:15 08/20/20 08:14 08/01/20 05:39 Acetaminophen (Tylenol) 650 mg Q6H PRN NG Temp >100.5 08/01/20 10:30 08/31/20 10:29 08/05/20 16:49 Ascorbic Acid (Vitamin C) 500 mg EVERY 12 HOURS NG 08/02/20 21:00 08/22/20 08:59 08/05/20 20:51 Atropine Sulfate (Atropine) 1 mg PRN PRN IVP Sustained HR <40 08/04/20 06:30 09/03/20 06:29 Chlorhexidine Gluconate (Hiral-Hex 2%) 1 applic DAILY@2000 TOPIC 07/30/20 20:00 10/28/20 19:59 08/05/20 20:50 Dextrose (Dextrose 50%) 25 ml Q30M PRN IV Hypoglycemia 07/21/20 13:30 10/19/20 13:29 Dextrose (Dextrose 50%) 50 ml Q30M PRN IV Hypoglycemia 07/21/20 13:30 10/19/20 13:29 Enoxaparin Sodium (Lovenox) 40 mg DAILY SUBQ 07/22/20 09:00 10/20/20 08:59 08/05/20 09:49 Fentanyl Citrate 250 ml @ 0 mls/hr Q24H IV 08/04/20 11:30 08/06/20 11:29 08/05/20 19:00 Guaifenesin (Robitussin) 200 mg Q4H PRN ORAL For Cough 07/25/20 12:30 10/23/20 12:29 07/29/20 09:32 Insulin Aspart (NovoLOG) EVERY 6 HOURS SUBQ 08/04/20 00:00 10/19/20 16:29 08/05/20 00:00 Insulin Detemir (Levemir) 20 units EVERY 12 HOURS SUBQ 08/02/20 09:00 10/19/20 20:59 08/05/20 21:48 Methylprednisolone Sodium Succinate (Solu-MEDROL) 40 mg EVERY 12 HOURS IVP 08/01/20 12:45 10/30/20 12:44 08/05/20 20:50 Midazolam HCl 50 mg/Sodium Chloride 110 ml @ 0 mls/hr Q24H IV 08/04/20 09:45 08/06/20 09:34 08/06/20 00:13 Mirtazapine (Remeron) 15 mg BEDTIME ORAL 07/22/20 21:00 10/20/20 20:59 08/05/20 20:51 Norepinephrine Bitartrate 250 ml @ 0 mls/hr Q24H PRN IV For hypotension 08/04/20 16:15 08/07/20 16:11 08/05/20 17:11 Norepinephrine Bitartrate 8 mg/ Dextrose 250 ml @ 0 mls/hr Q24H IV 08/05/20 20:00 08/08/20 19:59 08/05/20 20:35 Pantoprazole (Protonix) 40 mg DAILY IVP 07/30/20 09:00 08/29/20 08:59 08/05/20 09:09 Piperacillin Sod/ Tazobactam Sod 3.375 gm/Sodium Chloride 110 ml @ 27.5 mls/hr EVERY 8 HOURS IVPB 07/30/20 12:00 08/07/20 11:59 08/05/20 21:54 Sodium Chloride 1,000 ml @ 75 mls/hr [id number] IV 07/29/20 22:30 08/28/20 22:29 08/06/20 00:01 Neurological/Psychiatric: Reports: anxiety, depressed, emotional problems Allergies: Coded Allergies: No Known Allergies (Unverified , 07/21/20) Objective Data Height (Feet): 5 Height (Inches): 6.00 Weight (Pounds): 172 General Appearance: no apparent distress Additional Comments: alert, oriented to self, place, situation. Mood is anxious. Affect is blunted, congruent with mood. Thought process is concrete. Thought content, no suicidal or homicidal ideation. Cognition is intact. Insight and judgment fair. Assessment/Plan [place] I: ASSESSMENT: [place] I Anxiety disorder. [place] II Deferred. [place] III As above. [place] IV Low. [place] V 20 PLAN: 1. We will continue current medication. 2. Provide the patient with reality orientation and supportive therapy. Status: progressing Status Narrative ASSESSMENT: [place] Anxiety disorder. [place] II Deferred. [place] III As above. [place] IV Low. [place] V 20 PLAN: 1. We will continue current medication. 2. Provide the patient with reality orientation and supportive therapy. Assessment/Plan: ASSESSMENT: [place] Anxiety disorder. [place] II Deferred. [place] III As above. [place] IV Low. [place] V 20 PLAN: 1. We will continue current medication. 2. Provide the patient with reality orientation and supportive therapy. Ron Bridges MD Aug 06, 2020 00:45
[2020-08-06] MEDS ORDERED: DOPamine 400mg/250ml 250 ML IV SCH (01:30)
[2020-08-06] MEDS ORDERED: DOPamine 400mg/250ml 250 ML IV ONE (01:32)
[2020-08-06] MEDS ORDERED: Phenylephrine 10mg/ml 5ml vial IV ONE (01:42)
[2020-08-06] MEDS ORDERED: Phenylephrine 50 MG in D5W 245 ML IV SCH (01:45)
--- NOTE | 2020-08-06 02:00 | NUR ---
NURSE NOTES: Called Patient's Estefany Morales due to patient changed of condition, patient's critical condition, low BP, low saturation and ST DR. Carranza made aware with new order to add Dopamine and Phenylephrine drip. Held sedation for now. Per Family continue full code, family verbalized appreciation of notification. will continue to monitor patient.
--- NOTE | 2020-08-06 04:00 | NUR ---
NURSE NOTES: Patient in bed comfort measure provided. oral care provided. Turned and repositioned in bed. Continue on Dopamine drip at 8mcg/kg/min, Levophed at 30mcg/min, Phenylephrine drip at 80mcg/min BP 96/65. Frequent visual checks continued. will continue plan of care.
[2020-08-06] MEDS: Piperacillin/Tazobactam 3.375 GM in NS 110 ML IVPB SCH (05:28)
--- NOTE | 2020-08-06 05:34 | NUR ---
CODE BLUE: See Code sheet which remains on paper.
--- NOTE | 2020-08-06 05:42 | NUR ---
NURSE NOTES: Patient coded, started CPR ACLS medication given per protocol, ER MD came. Patient at 0542.
--- NOTE | 2020-08-06 05:55 | Emergency Room Report ---
History of Present Illness General Chief Complaint: Dyspnea/Respdistress Source: EMS Present Illness HPI Is a 54-year-old male who was admitted to the hospital for Covid pneumonia. He subsequently was intubated. He is on maximal pressors. I responded to a CODE BLUE this morning. He was asystolic. CPR was in progress. Patient received a total of 4 mg epinephrine without any results. He remained asystolic and I called the code at 5:43 AM. Allergies: Coded Allergies: No Known Allergies (Unverified , 07/21/20) COVID-19 Screening Contact w/high risk pt: No Experienced COVID-19 symptoms?: Yes COVID-19 Testing performed [employer]: No COVID-19 Screening: Positive COVID-19 Nursing Documentation[facility] Hx Diabetes: Yes Physical Exam Vital Signs Date Time Temp Pulse Resp B/P (MAP) Pulse Ox O2 Delivery O2 Flow Rate FiO2 08/02/20 07:00 24 117/59 Mechanical Ventilator 100 08/02/20 07:00 95 95 08/02/20 08:00 98.0 08/04/20 20:07 100.0 Procedures CPR/Code Blue CPR/Code Blue Narrative Please see code sheet for list of medication time given. Medical Decision Making Diagnostic Impression: Primary Impression: Pneumonia due to COVID-19 virus Additional Impressions: Acute respiratory failure with hypoxia Respiratory failure requiring intubation Hyperglycemia due to type 2 diabetes mellitus Qualified Codes: E11.65 - Type 2 diabetes mellitus with hyperglycemia Cardiac arrest ER Course Patient had cardiac arrest and became asystolic. No response with epinephrine. Patient pronounced at 5:43 AM. Last Vital Signs Date Time Temp Pulse Resp B/P (MAP) Pulse Ox O2 Delivery O2 Flow Rate FiO2 08/06/20 05:29 80/41 08/06/20 04:30 150 27 20 08/06/20 04:00 99.0 08/06/20 04:00 100 08/06/20 04:00 Mechanical Ventilator 08/06/20 00:13 100.0 Status: other Disposition: ADMITTED INPATIENT Condition: Referrals: NOT CHOSEN IPA/,REFERRING (PCP) Grant Hackett MD Aug 06, 2020 05:55
--- NOTE | 2020-08-06 06:00 | NUR ---
NURSE NOTES: [facility] [employer] was called spoke with Jeanine DNN number # [phone], [employer] notified spoke with Bryce. called Dr. Miller and Dr. Carranza and left message. Spoke with patient Estefany Morales will call back for mortuary of choice. Post mortem care done.
[2020-08-06 07:56] LABS: ALBUMIN 1.1 G/DL (3.4-5.0); ALBUMIN/GLOBULIN RATIO 0.3 (1.0-2.7); ALKALINE PHOSPHATASE 214 U/L (46-116); ANION GAP 13 mmol/L (5-15); BILIRUBIN,TOTAL 1.9 MG/DL (0.2-1.0); BLOOD UREA NITROGEN 41 mg/dL (7-18); CALCIUM 6.7 MG/DL (8.5-10.1); CARBON DIOXIDE 21 MMOL/L (21-32); CHLORIDE 111 MMOL/L (98-107); CREATININE 1.7 MG/DL (0.55-1.30); PHOSPHORUS 5.5 MG/DL (2.5-4.9); SODIUM 145 MMOL/L (136-145)
[2020-08-06 07:59] LABS: BILIRUBIN,DIRECT 1.3 MG/DL (0.0-0.3)
[2020-08-06 08:14] LABS: ALANINE AMINOTRANSFERASE 3736 U/L (12-78)
--- NOTE | 2020-08-06 17:16 | Discharge Summary ---
Discharge Summary Discharge Summary _ Date of admission: 07/21/2020 Date of expiration: 08/06/[address] Miller History of Present Illness and Brief Hospital Course Mr. Andrew Hogue was a 54-year-old male with history of diabetes who presented to the emergency room with chief complaint of respiratory distress. Patient reported ongoing symptoms for a week that was associated with nonproductive cough, nausea, and vomiting. Patient was hypoxic on room air and was immediately put on 4 L oxygen via nasal cannula with subsequent increase in his oxygen saturation to 95-97%. Patient received antibiotics and steroids and was admitted for further work-up and monitoring. Patient was alert, but disoriented to self, place, and situation on 07/23/2020. Patient appeared to be anxious and was started on Ativan and mirtazapine. Patient was provided with reality orientation and supportive therapy. Patient's rapid COVID-19 test was positive. Chest x-ray on 07/21/2020 revealed patchy airspace opacities throughout both lungs concerning for an infectious process. Patient was started on Decadron, and remdesivir with supplemental oxygen. A repeat chest x-ray on 07/24/2020 showed marked worsening of bilateral infiltrates. Patient was on 12 L oxygen via Venturi mask, which was switched to 15 L oxygen via nonrebreather mask. A repeat chest x-ray on 07/27/2020 revealed stable or slightly worse extensive bilaterally diffuse infiltrates. Rocephin was added to his regimen. Rocephin was replaced with Zosyn at a later date. On 07/28/2020 patient was put on BiPAP saturating at 88-93%. The next day patient was found to be off BiPAP and was saturating at 48% in bed. Per nursing patient was aware of how to take off BiPAP for feeding. Thus, it was necessary for him to be sedated/ intubated and transferred to ICU. The ventilator setting was kept at AC mode with FiO2 100%, and PEEP of 15. A central line was in place; patient was started on dopamine, propofol and fentanyl. ABGs were monitored closely. Repeat chest x-ray on 08/05/2020 was notable for worsening bilateral pulmonary infiltrates, with new subcutaneous emphysema. Patient was unable to be diuresed given Levophed usage at the time. On 08/01/2020 patient was started on methylprednisolone. Patient developed leukocytosis likely secondary to steroids. In ICU patient was found to be hypotensive. Dopamine was continued as the patient was also bradycardic. On 07/31/2020 patient was evaluated for oliguria, which was likely due to hypotension on low-dose pressors. His renal parameters and urine output were closely monitored. Nephrotoxins were avoided. Patient had diabetes mellitus and was put on insulin and sliding scale along with hypoglycemia protocol. On 08/06/2020 patient's , Estefany Morales was contacted due to patient's worsening condition including but not limited to low blood pressure, and low oxygen saturation. Dopamine and fentanyl drip were added and sedation was held. Patient's family wished continuation of full code at the time. Patient was found to be in asystole on 08/06/2020 at 05:34. CPR and ACLS protocols were implemented with appropriate medications. Patient received 4 mg of epinephrine without any results. Patient remained asystolic. Patient at 05:42. Patient's Estefany Morales was contacted and she will call back for mortuary of choice. Postmortem care was completed. Consultants: Cardiology Dr. Carranza Endocrinology Dr. Shoemaker Nephrology Dr. Dyson Infectious disease Dr. Caraballo Psychiatric Dr. Bridges Pulmonology Dr. Monique Final diagnoses Sepsis COVID-19 pneumonia with respiratory failure Hypotension and bradycardia Diabetes mellitus with hyperglycemia Leukocytosis ARDS Oliguria Lymphocytopenia Anxiety disorder I have been assigned to dictate discharge summary for this account. I was not involved in the patient's management Zhao Kaur Aug 06, 2020 17:16
--- NOTE | 2020-08-06 22:59 | Psychiatric Progress Note ---
Psychiatry Progress Note Psychiatry Progress Note Subjective no new changes this is a late entry the pt was seeing prior to his the pt was on bilat restraints Allergies: Coded Allergies: No Known Allergies (Unverified , 07/21/20) Objective Data Height (Feet): 5 Height (Inches): 6.00 Weight (Pounds): 172 General Appearance: no apparent distress, lethargic Additional Comments: Mood is anxious. Affect is blunted, congruent with mood. Thought process is concrete. Thought content, no suicidal or homicidal ideation. Cognition is intact. Insight and judgment fair. Assessment/Plan [place] I: ASSESSMENT: [place] I Anxiety disorder. [place] II Deferred. [place] III As above. [place] IV Low. [place] V 20 PLAN: 1. We will continue current medication. 2. Provide the patient with reality orientation and supportive therapy. Status: progressing Status Narrative ASSESSMENT: [place] I Anxiety disorder. [place] II Deferred. [place] III As above. [place] IV Low. [place] V 20 PLAN: 1. We will continue current medication. 2. Provide the patient with reality orientation and supportive therapy. Assessment/Plan: ASSESSMENT: [place] I Anxiety disorder. [place] II Deferred. [place] III As above. [place] IV Low. [place] V 20 PLAN: 1. We will continue current medication. 2. Provide the patient with reality orientation and supportive therapy. Ron Bridges MD Aug 06, 2020 22:59
== END 2020-08-06 05:42 | disposition expired | DRG 130 ==
LOC: EDBD 01:23 → EMR 01:34 → 4E 01:43 → EDBEDREQ 04:00 → 2E 07-23 18:01 → ICU 07-27 10:58 → 2W 07-27 14:10 → SDU 07-29 16:51 → ICU 07-29 16:53
PROC: XW033E5 Introduction of Remdesivir Anti-infective into Peripheral Vein, Percutaneous Approach, New Technology Group 5 (ICD-10-PCS; 2020-07-24)
PROC: 0BH17EZ Insertion of Endotracheal Airway into Trachea, Via Natural or Artificial Opening (ICD-10-PCS; principal; 2020-07-29)
PROC: 5A1945Z Respiratory Ventilation, 24-96 Consecutive Hours (ICD-10-PCS; principal; 2020-07-29)
PROC: 06HM33Z Insertion of Infusion Device into Right Femoral Vein, Percutaneous Approach (ICD-10-PCS; 2020-07-30)
PROC: 5A1955Z Respiratory Ventilation, Greater than 96 Consecutive Hours (ICD-10-PCS; 2020-07-31)
PROC: 0BH17EZ Insertion of Endotracheal Airway into Trachea, Via Natural or Artificial Opening (ICD-10-PCS; 2020-07-31)
DX: U07.1 COVID-19 (principal); J12.89 Other viral pneumonia; E11.65 Type 2 diabetes mellitus with hyperglycemia; D72.810 Lymphocytopenia; F41.9 Anxiety disorder, unspecified; A41.9 Sepsis, unspecified organism; R00.0 Tachycardia, unspecified; I95.9 Hypotension, unspecified; J80 Acute respiratory distress syndrome; R34 Anuria and oliguria
CPT/HCPCS: 36415; 71045; 74018; 80048; 80053; 80061; 80076; 81003; 82248; 82306; 82550; 82553; 82728; 82803; 82962; 82977; 83036; 83605; 83615; 83690; 83735; 83880; 84100; 84443; 84478; 84484; 84550; 85007; 85025; 85379; 85610; 85730; 86140; 87040; 87070; 87205; 93005; 93306; 94002; 94003; 94640; 94660; 96361; 96365; 96367; 96375; 99291; J1815; J2370; J3490; J7030; J8499; S5561; U0002